=== PATIENT | female | born 1950 | race Caucasian/White ===

== ENCOUNTER 2019-11-03 07:07 | Outpatient (CLI) | payer MEDICARE, SELFPAY ==
[2019-11-03 07:22] LABS: Add Urine Microscopic? YES; Appearance Urine Clear (Clear); Bilirubin Urine Negative (Negative); Blood Urine 1+ (Negative); Color Urine Yellow (Yellow); Glucose Urine UA Negative (Negative); Ketones Urine Negative (Negative); Leukocyte Esterase Ur Negative (Negative); Nitrate Urine Negative (Negative); Protein Urine Negative (Negative); Urobilinogen Urine 0.2 mg/dL (0.2-1.0)
[2019-11-03 07:34] LABS: Squamous Epithelial Cell Urine Moderate /hpf (Few); WBC Urine 0-3 /hpf (0-3)
[2019-11-03 07:35] LABS: Bacteria Urine 1+ /hpf
== END 2019-11-03 07:08 | disposition home or self-care (01) ==
LOC: CHSLAB 07:10
PROVIDERS: PCP Internal Medicine; Visit Provider Internal Medicine
DX: N39.0 Urinary tract infection, site not specified (principal)
CPT/HCPCS: 81001; 87086

== ENCOUNTER 2019-11-30 14:11 | Outpatient (RCR) | payer MEDICARE, SELFPAY ==
[2019-11-30 14:26] LABS: Basophils Absolute Auto 0.04 K/mm3 (0.00-0.10); Basophils Percent Auto 0.6 % (0.0-1.0); Eosinophils Absolute Auto 0.13 K/mm3 (0.02-0.50); Eosinophils Percent Auto 1.8 % (1.0-6.0); Hematocrit 36.8 % (35.0-42.0); Hemoglobin 11.8 g/dL (11.7-13.8); Immature Granulocyte Absolute 0.02 K/mm3 (0.00-0.00); Immature Granulocyte Percent A 0.3 % (0.0-0.0); Lymphocytes Absolute Auto 2.28 K/mm3 (1.10-4.50); Lymphocytes Percent Auto 31.8 % (18.0-42.0); Mean Corpuscular HGB Conc 32.1 g/dL (32.0-36.0); Mean Corpuscular Hemoglobin 28.5 pg (27.0-31.0); Mean Corpuscular Volume 88.9 fL (78.0-102.0); Mean Platelet Volume 8.2 fl (9.2-11.8); Neutrophils Absolute Auto 4.2 K/mm3 (1.7-7.2); Neutrophils Percent Auto 58.5 % (50.0-70.0); Platelet Count Result 319 K/mm3 (150-420); Red Blood Count 4.14 M/mm3 (4.20-5.40); Red Cell Distribution Width 13.3 % (11.6-14.4); White Blood Count 7.2 K/mm3 (4.8-10.8)
[2019-11-30 15:47] LABS: Ferritin 36 ng/mL (8-252); Iron 107 ug/dL (50-170); Percent Iron Saturation 31 % (12-57)
== END 2020-02-28 23:59 | disposition home or self-care (01) ==
LOC: CHSLAB 14:11
PROVIDERS: PCP Internal Medicine
DX: D50.9 Iron deficiency anemia, unspecified (principal)
CPT/HCPCS: 36415; 82728; 83540; 83550; 85025

== ENCOUNTER 2019-12-10 09:16 | Outpatient (CLI) | payer MEDICARE, SELFPAY ==
[2019-12-10 09:29] LABS: Add Urine Microscopic? YES; Appearance Urine Clear (Clear); Bilirubin Urine Negative (Negative); Blood Urine 2+ (Negative); Color Urine Yellow (Yellow); Glucose Urine UA Negative (Negative); Ketones Urine Negative (Negative); Leukocyte Esterase Ur Trace (Negative); Nitrate Urine Negative (Negative); Protein Urine Negative (Negative); Urobilinogen Urine 0.2 mg/dL (0.2-1.0)
[2019-12-10 09:34] LABS: WBC Urine 0-3 /hpf (0-3)
[2019-12-10 09:35] LABS: Bacteria Urine Trace /hpf; Squamous Epithelial Cell Urine Few /hpf (Few)
== END 2019-12-10 09:17 | disposition home or self-care (01) ==
LOC: CHSLAB 09:18
PROVIDERS: PCP Internal Medicine; Visit Provider Internal Medicine
DX: R31.9 Hematuria, unspecified (principal)
CPT/HCPCS: 81001; 87077; 87086; 87088; 87186; 88108; 88112

== ENCOUNTER 2019-12-14 09:48 | Outpatient (RCR) | payer MEDICARE, SELFPAY ==
--- NOTE | 2019-12-14 11:33 | PTOPEVAL ---
Thank you for referring this patient to [facility]. Please review, sign, date and return this plan of care ELSI. I agree with and certify that the following plan of care is medically necessary. Referring Physician Date Admitting Provider: Attending Provider: PHYSICIAN NOT ON STAFF Referring Provider: *PT Outpatient Evaluation Start: 12/14/19 10:12 Freq: Status: Active Protocol: Document 12/14/19 10:10 [facility] (Rec: 12/14/19 11:14 [facility] [id number]) Therapy Assessment Status Assessment Status Assessment Status Evaluation Evaluation Information Problem Diagnosis lumbar stenosis, post op decompression L3-4. Onset 11/06/19 Additional Evaluation Detail oswestry = 40% Subjective Information patient reports she had a Query Text:As Reported By Patient/ lumbar decompression on 11/06/ Family 20. she reports she had the surgery due to pain in the back and decreased mobility/ endurance. she reports she was not having any weakness in the legs prior tyo surgery, but reports since surgery she has been having severe weakness in the quads. she reports she has fallen several times since surgery deu to the R LE giving out on her. she reports she is unable to ambulate up and down steps safely due to the weakness in the R LE. 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 she reports she is off work currently. Pain Assessment Timing of Pain Assessment Timing of Pain Assessment Assessment Pain Scale Pain Scale Used Numeric (1 - 10) Self Report Pain Assessment Lower Back Reported Pain Level 1 Pain Description Pressure Greatest Pain Intensity 2 Pain Aggravating Factors Prolonged Position,Sitting, Stair Climbing,Weight Bearing/ Standing Other Pain Aggravating Factors prolonged activity Pain Score Pain Score 1: Self Report Cervical and Lumbar ROM Lumbar ROM Lumbar Flexion Active Floor Query Text:Hands to: Lumbar Extension (0-40) 20 Query Text:Active in Degrees
== END 2020-01-07 10:21 | disposition home or self-care (01) ==
LOC: CHSPT 09:48
PROVIDERS: PCP Internal Medicine
DX: M48.061 Spinal stenosis, lumbar region without neurogenic claudication (principal)
CPT/HCPCS: 97110; 97161; 97530

== ENCOUNTER 2019-12-22 09:32 | Outpatient (CLI) | payer MEDICARE, SELFPAY ==
--- NOTE | ~2019-12-22 | US_ITS ---
EXAMINATION: US retroperitoneal comp EXAM DATE: 12/22/2019 13:16 INDICATION: Hematuria. TECHNIQUE: Multiple grayscale and Doppler images of the kidneys were obtained (by a technologist who performed the scan) and subsequently reviewed. There is no prior study for comparison. FINDINGS: Right kidney: There is normal contour and echogenicity. It measures 10.7 x 5.6 x 5.8 centimeters. T here are no focal renal lesions identified. There is no hydronephrosis. Left kidney: There is normal contour and echogenicity. It measures 10.3 x 5.4 x 6.0 centimeters. Th ere are no focal renal lesions identified. There is no hydronephrosis. Bladder unremarkable. IMPRESSION: 1. Sonographically unremarkable kidneys. Reviewed, dictated and finalized at location A.
[2019-12-22 09:43] LABS: Add Urine Microscopic? YES; Appearance Urine Clear (Clear); Bilirubin Urine Negative (Negative); Blood Urine 2+ (Negative); Color Urine Yellow (Yellow); Glucose Urine UA Negative (Negative); Ketones Urine Negative (Negative); Leukocyte Esterase Ur Negative (Negative); Nitrate Urine Negative (Negative); Protein Urine Negative (Negative); Urobilinogen Urine 0.2 mg/dL (0.2-1.0); pH Urine 6.5 (5.0-8.0)
[2019-12-22 10:17] LABS: Bacteria Urine Trace /hpf; Squamous Epithelial Cell Urine Rare /hpf (Few); WBC Urine 0-3 /hpf (0-3)
== END 2019-12-22 09:33 | disposition home or self-care (01) ==
PROVIDERS: PCP Internal Medicine; Visit Provider Internal Medicine
DX: R31.9 Hematuria, unspecified (principal); N39.0 Urinary tract infection, site not specified
CPT/HCPCS: 76770; 81001; 87086

== ENCOUNTER 2020-03-24 06:59 | Outpatient (CLI) | payer MEDICARE, SELFPAY ==
[2020-03-24 07:15] LABS: Basophils Absolute Auto 0.04 K/mm3 (0.00-0.10); Basophils Percent Auto 0.7 % (0.0-1.0); Eosinophils Absolute Auto 0.19 K/mm3 (0.02-0.50); Eosinophils Percent Auto 3.5 % (1.0-6.0); Hematocrit 34.3 % (35.0-42.0); Hemoglobin 11.2 g/dL (11.7-13.8); Immature Granulocyte Absolute 0.02 K/mm3 (0.00-0.00); Immature Granulocyte Percent A 0.4 % (0.0-0.0); Lymphocytes Absolute Auto 2.25 K/mm3 (1.10-4.50); Lymphocytes Percent Auto 41.6 % (18.0-42.0); Mean Corpuscular HGB Conc 32.7 g/dL (32.0-36.0); Mean Corpuscular Hemoglobin 28.7 pg (27.0-31.0); Mean Corpuscular Volume 87.9 fL (78.0-102.0); Mean Platelet Volume 8.4 fl (9.2-11.8); Monocytes Percent Auto 12.9 % (2.0-11.0); Neutrophils Absolute Auto 2.2 K/mm3 (1.7-7.2); Neutrophils Percent Auto 40.9 % (50.0-70.0); Platelet Count Result 325 K/mm3 (150-420); Red Cell Distribution Width 13.9 % (11.6-14.4); White Blood Count 5.4 K/mm3 (4.8-10.8)
[2020-03-24 07:16] LABS: Add Urine Microscopic? YES; Appearance Urine Cloudy (Clear); Bilirubin Urine Negative (Negative); Blood Urine 2+ (Negative); Color Urine Yellow (Yellow); Glucose Urine UA Negative (Negative); Ketones Urine Negative (Negative); Leukocyte Esterase Ur 3+ (Negative); Nitrate Urine Positive (Negative); Protein Urine 1+ (Negative); Urobilinogen Urine 0.2 mg/dL (0.2-1.0)
[2020-03-24 07:19] LABS: RBC Urine None seen /hpf (0-2); Squamous Epithelial Cell Urine Rare /hpf (Few); WBC Urine >75 /hpf (0-3)
[2020-03-24 07:20] LABS: Bacteria Urine 1+ /hpf
[2020-03-24 08:19] LABS: Alanine Aminotransferase 17 U/L (14-59); Albumin Level 3.3 g/dL (3.4-5.0); Alkaline Phosphatase 42 U/L (46-116); Anion Gap 9.9 mmol/L (7-16); Aspartate Amino Transferase 17 U/L (15-37); Bilirubin,Total 0.2 mg/dL (0.00-1.00); Blood Urea Nitrogen 15 mg/dL (7-18); Calcium 8.9 mg/dL (8.5-10.1); Carbon Dioxide 33 mmol/L (21-32); Chloride 102 mmol/L (98-108); Cholesterol 210 mg/dL (0-200); Creatine Kinase 74 U/L (26-192); Estimated Glomerular Filt Rate > 60; Ferritin 32 ng/mL (8-252); Glucose 106 mg/dL (70-99); HDL Direct 53 mg/dL (40-60); Iron 48 ug/dL (50-170); LDL Cholesterol Calculated 133 mg/dL (<130); Osmolality Calculated 292 mOsm/kg (285-295); Percent Iron Saturation 15 % (12-57); Potassium 3.9 mmol/L (3.5-5.1); Sodium 141 mmol/L (136-145); Total Protein 6.7 g/dL (6.4-8.2); Triglycerides 119 mg/dL (0-150)
[2020-03-28 19:41] LABS: Vitamin D 25 Hydroxy 33 ng/mL (30-100)
== END 2020-03-24 07:00 ==
LOC: CHSLAB 07:01
PROVIDERS: PCP Internal Medicine; Visit Provider Internal Medicine
DX: E78.2 Mixed hyperlipidemia (principal); I10 Essential (primary) hypertension; M81.0 Age-related osteoporosis without current pathological fracture; D50.9 Iron deficiency anemia, unspecified
CPT/HCPCS: 36415; 80053; 80061; 81001; 82306; 82550; 82728; 83540; 83550; 85025

== ENCOUNTER 2020-08-17 12:37 | Outpatient (CLI) | payer MEDICARE, SELFPAY ==
[2020-08-17 12:47] LABS: Basophils Absolute Auto 0.04 K/mm3 (0.00-0.10); Basophils Percent Auto 0.6 % (0.0-1.0); Eosinophils Absolute Auto 0.22 K/mm3 (0.02-0.50); Eosinophils Percent Auto 3.3 % (1.0-6.0); Hematocrit 35.6 % (35.0-42.0); Hemoglobin 11.3 g/dL (11.7-13.8); Immature Granulocyte Absolute 0.01 K/mm3 (0.00-0.00); Immature Granulocyte Percent A 0.2 % (0.0-0.0); Lymphocytes Absolute Auto 2.86 K/mm3 (1.10-4.50); Lymphocytes Percent Auto 43.5 % (18.0-42.0); Mean Corpuscular HGB Conc 31.7 g/dL (32.0-36.0); Mean Corpuscular Hemoglobin 28.2 pg (27.0-31.0); Mean Corpuscular Volume 88.8 fL (78.0-102.0); Mean Platelet Volume 8.5 fl (9.2-11.8); Monocytes Absolute Auto 0.59 K/mm3 (0.10-0.90); Neutrophils Absolute Auto 2.9 K/mm3 (1.7-7.2); Neutrophils Percent Auto 43.4 % (50.0-70.0); Platelet Count Result 345 K/mm3 (150-420); Red Blood Count 4.01 M/mm3 (4.20-5.40); White Blood Count 6.6 K/mm3 (4.8-10.8)
[2020-08-17 13:52] LABS: Ferritin 46 ng/mL (8-252); Iron 65 ug/dL (50-170); Percent Iron Saturation 20 % (12-57)
== END 2020-08-17 12:38 | disposition home or self-care (01) ==
LOC: CHSLAB 12:38
PROVIDERS: PCP Internal Medicine; Visit Provider Internal Medicine
DX: D50.9 Iron deficiency anemia, unspecified (principal)
CPT/HCPCS: 36415; 82728; 83540; 83550; 85025

== ENCOUNTER 2020-10-12 07:06 | Outpatient (CLI) | payer MEDICARE, SELFPAY ==
[2020-10-12 07:22] LABS: Add Urine Microscopic? YES; Appearance Urine Clear (Clear); Basophils Absolute Auto 0.04 K/mm3 (0.00-0.10); Basophils Percent Auto 0.7 % (0.0-1.0); Bilirubin Urine Negative (Negative); Blood Urine 1+ (Negative); Color Urine Yellow (Yellow); Eosinophils Absolute Auto 0.36 K/mm3 (0.02-0.50); Eosinophils Percent Auto 5.9 % (1.0-6.0); Glucose Urine UA Negative (Negative); Hematocrit 35.5 % (35.0-42.0); Hemoglobin 11.3 g/dL (11.7-13.8); Immature Granulocyte Absolute 0.02 K/mm3 (0.00-0.00); Immature Granulocyte Percent A 0.3 % (0.0-0.0); Ketones Urine Negative (Negative); Leukocyte Esterase Ur 1+ LEU/UL (Negative); Lymphocytes Absolute Auto 2.28 K/mm3 (1.10-4.50); Lymphocytes Percent Auto 37.1 % (18.0-42.0); Mean Corpuscular HGB Conc 31.8 g/dL (32.0-36.0); Mean Corpuscular Hemoglobin 28.5 pg (27.0-31.0); Mean Corpuscular Volume 89.4 fL (78.0-102.0); Mean Platelet Volume 9.3 fl (9.2-11.8); Monocytes Absolute Auto 0.65 K/mm3 (0.10-0.90); Monocytes Percent Auto 10.6 % (2.0-11.0); Neutrophils Absolute Auto 2.8 K/mm3 (1.7-7.2); Neutrophils Percent Auto 45.4 % (50.0-70.0); Nitrate Urine Negative (Negative); Platelet Count Result 356 K/mm3 (150-420); Protein Urine Negative (Negative); Red Blood Count 3.97 M/mm3 (4.20-5.40); Red Cell Distribution Width 13.3 % (11.6-14.4); Urobilinogen Urine 0.2 mg/dL (0.2-1.0); White Blood Count 6.2 K/mm3 (4.8-10.8); pH Urine 6.5 (5.0-8.0)
[2020-10-12 08:09] LABS: Bacteria Urine Trace /hpf; RBC Urine 0-2 /hpf (0-2); Squamous Epithelial Cell Urine Few /hpf (Few); WBC Urine 0-3 /hpf (0-3)
[2020-10-12 10:08] LABS: Alanine Aminotransferase 15 U/L (14-59); Albumin Level 3.6 g/dL (3.4-5.0); Alkaline Phosphatase 40 U/L (46-116); Anion Gap 8 mmol/L (8-16); Aspartate Amino Transferase 12 U/L (15-37); Bilirubin,Total 0.2 mg/dL (0.00-1.00); Blood Urea Nitrogen 10 mg/dL (7-18); Calcium 8.5 mg/dL (8.5-10.1); Carbon Dioxide 30 mmol/L (21-32); Chloride 102 mmol/L (98-108); Cholesterol 207 mg/dL (0-200); Estimated Glomerular Filt Rate > 60; Ferritin 36 ng/mL (8-252); Glucose 94 mg/dL (70-99); HDL Direct 59 mg/dL (40-60); Iron 67 ug/dL (50-170); LDL Cholesterol Calculated 121 mg/dL (<130); Osmolality Calculated 289 mOsm/kg (285-295); Percent Iron Saturation 20 % (12-57); Potassium 4.1 mmol/L (3.5-5.1); Sodium 140 mmol/L (136-145); Total Protein 7.1 g/dL (6.4-8.2); Triglycerides 137 mg/dL (0-150)
[2020-10-15 12:16] LABS: Vitamin D 25 Hydroxy 32 ng/mL (30-100)
== END 2020-10-12 07:07 | disposition home or self-care (01) ==
LOC: CHSLAB 07:08
PROVIDERS: PCP Internal Medicine; Visit Provider Internal Medicine
DX: E78.5 Hyperlipidemia, unspecified (principal); E55.9 Vitamin D deficiency, unspecified; D50.9 Iron deficiency anemia, unspecified; R31.9 Hematuria, unspecified
CPT/HCPCS: 36415; 80053; 80061; 81001; 82306; 82728; 83540; 83550; 85025; 87086; 87088

== ENCOUNTER 2020-10-21 16:20 | Outpatient (CLI) | payer MEDICARE, SELFPAY ==
--- NOTE | ~2020-10-21 | XR_ITS ---
EXAMINATION: XR ribs LT 2V w CXR 2V DATE: 10/21/2020 16:41 INDICATION: Left chest pain. TECHNIQUE: Frontal and lateral views of the chest and 3 views of the left ribs were obtained. COMPARISON: Chest 2 views 07/30/2019 FINDINGS: CHEST TWO VIEWS: A calcified left lung nodule is consistent with old granulomatous disease. No pleura l effusion or pneumothorax. The heart size is normal. There are changes of posterior fusion procedure in lumbar spine. LEFT RIBS: There is a fracture of ninth rib. IMPRESSION: 1. Left ninth rib fracture. Reviewed, dictated and finalized at location A. [place] BRANCH MANAGER IMPRESSION: 1. Left ninth rib fracture.
== END 2020-10-21 16:21 | disposition home or self-care (01) ==
LOC: CHSIMG 16:21
PROVIDERS: PCP Internal Medicine; Visit Provider Family Medicine
DX: R07.89 Other chest pain (principal)
CPT/HCPCS: 71046; 71100

== ENCOUNTER 2020-10-25 12:06 | Outpatient (CLI) | payer MEDICARE, SELFPAY ==
--- NOTE | ~2020-10-25 | DEXA_ITS ---
Bone Density Report Name: Lluvia Castaneda Age: 70 Sex: Female Ethnicity: White Date of : 1950 Indication: postmenopausal; screening for osteoporosis; height loss; secondary osteoporosis; Referring Provider: Rinku Beasley Study: Bone densitometry was performed. Exam Date: October 25, 2020 Accession number: [id number] Bone Density: Region BMD T-score Z-score Classification AP Spine(L1, L2, L3) 1.137 1.1 3.0 Normal Femoral Neck (Left) 0.648 -1.8 -0.1 Osteopenia Total Hip (Left) 0.774 -1.4 0.0 Osteopenia Femoral Neck (Right) 0.565 -2.6 -0.9 Osteoporosis Total Hip (Right) 0.766 -1.4 0.0 Osteopenia Femoral Neck Mean 0.607 -2.2 -0.5 Osteopenia Total Hip Mean 0.770 -1.4 0.0 Osteopenia World Health Organization criteria for BMD impression classify patients as: Normal (T-score at or above -1.0), Osteopenia (T-score between -1.0 and -2.5), or Osteoporosis (T-score at or below -2.5). 10-year Fracture Risk: FRAX not reported because: Some T-score for Spine Total or Hip Total or Femoral Neck at or below -2.5 Treated for osteoporosis Clinical Information Provided by Patient: Has secondary osteoporosis Is being treated for osteoporosis Has used the following medications: Vitamin D Patient maximum height was 65 Menopause Age: 55 Does not regularly consume dairy products Drinks caffeinated beverages Onset of menses at age 16 Number of children 2 Impression: The patient has osteoporosis, based on the Right Femoral Neck T-score. Discussion: It is important to ask patients whether they are taking their medications and to encourage continued and appropriate compliance with their osteoporosis therapies to reduce fracture risk. It is also important to review their risk factors and encourage appropriate calcium and vitamin D intakes, exercise, fall prevention and other lifestyle measures. Follow-Up: Consider a repeat BMD and Vertebral Fracture Assessment (VFA) exam in 2 years or sooner if medically necessary, to reassess this patient's status. Reported by: Dr. Jason Esquivel on 10/25/2020 12:43:00 PM. Reviewed, dictated and finalized at location AKamron ESCAMILLA
--- NOTE | ~2020-10-25 | MM_ITS ---
EXAMINATION: MM screening [facility] BI w chuck HISTORY: Screening mammogram TECHNIQUE: Craniocaudal and mediolateral oblique 3-D tomosynthesis images were obtained and synthetic 2-D images were generated. CAD analysis was submitted and interpreted. COMPARISON: 10/19/2019, 08/19/2018, 07/24/2017 BREAST PARENCHYMAL COMPOSITION: The breasts are almost entirely fatty. FINDINGS: There is no evidence of suspicious mass, calcification, or architectural distortion to sugg est malignancy in either breast. There has been no suspicious interval change. IMPRESSION: 1. No mammographic evidence of malignancy. 2. Recommend routine screening mammography in one year. BI-RADS Category 1: Negative Reviewed, dictated and finalized at location A. E NURSE
--- NOTE | ~2020-10-25 | CT_ITS ---
EXAMINATION: CT diagnostic chest wo con DATE: 10/25/2020 12:55 INDICATION: Follow-up pulmonary nodules. Recent rib fracture. Shortness of breath. TECHNIQUE: Computed tomography (CT) of the chest was performed without intravenous contrast. The dose -length product was 383.92 mGy-cm. Automated exposure control and iterative reconstruction technique were employed. COMPARISON: CT dated 02/13/2016 and rib series dated 10/21/2020 FINDINGS: Heart size is normal. No significant pleural or pericardial effusion. No thoracic lymphaden opathy. The upper abdomen is unremarkable. There are a few calcified granulomas. There are a few scattered st able 2-3 mm nodules, benign. There is a stable small 3 mm fissural nodule on the right, axial image 5 8, likely benign. No new pulmonary nodules or masses. No endobronchial lesions. No pneumothorax. No acute osseous abnormality. IMPRESSION: 1. Stable small pulmonary nodules measuring 3 mm or less, likely benign granulomatous disease. Reviewed, dictated and finalized at location A. IRATORY THERAPIST ASSISTANT IMPRESSION: 1. Stable small pulmonary nodules measuring 3 mm or less, likely benign granulo matous disease.
== END 2020-10-25 12:07 | disposition home or self-care (01) ==
LOC: CHSIMG 12:07
PROVIDERS: PCP Internal Medicine; Visit Provider Internal Medicine
DX: R91.1 Solitary pulmonary nodule (principal); Z12.31 Encounter for screening mammogram for malignant neoplasm of breast; M81.0 Age-related osteoporosis without current pathological fracture
CPT/HCPCS: 71250; 77063; 77067; 77080

== ENCOUNTER 2021-01-12 14:06 | Outpatient (CLI) | payer MEDICARE, SELFPAY ==
--- NOTE | ~2021-01-12 | XR_ITS ---
[XR ribs RT 2V ] INDICATION: Right anterior and lower rib pain TECHNIQUE: Frontal projection of the upper right ribs, frontal projection of the lower right ribs, ob lique projection of all the right ribs, frontal inspiratory chest x-ray for interpretation. FINDINGS: There are no displaced rib fractures identified. There are no soft tissue abnormality see n. The lungs are clear. Osteopenia. IMPRESSION: 1:No displaced rib fractures. Reviewed, dictated and finalized at location A.
== END 2021-01-12 14:07 | disposition home or self-care (01) ==
LOC: CHSIMG 14:08
PROVIDERS: PCP Internal Medicine; Visit Provider Internal Medicine
DX: R07.89 Other chest pain (principal)
CPT/HCPCS: 71100

== ENCOUNTER 2021-04-17 08:22 | Outpatient (CLI) | payer MEDICARE, SELFPAY ==
[2021-04-17 08:37] LABS: Basophils Absolute Auto 0.05 K/mm3 (0.00-0.10); Basophils Percent Auto 0.7 % (0.0-1.0); Eosinophils Absolute Auto 0.24 K/mm3 (0.02-0.50); Eosinophils Percent Auto 3.2 % (1.0-6.0); Hematocrit 36.2 % (35.0-42.0); Hemoglobin 11.7 g/dL (11.7-13.8); Immature Granulocyte Absolute 0.02 K/mm3 (0.00-0.00); Immature Granulocyte Percent A 0.3 % (0.0-0.0); Lymphocytes Absolute Auto 2.03 K/mm3 (1.10-4.50); Lymphocytes Percent Auto 26.9 % (18.0-42.0); Mean Corpuscular HGB Conc 32.3 g/dL (32.0-36.0); Mean Corpuscular Hemoglobin 28.3 pg (27.0-31.0); Mean Corpuscular Volume 87.7 fL (78.0-102.0); Mean Platelet Volume 8.8 fl (9.2-11.8); Monocytes Absolute Auto 0.56 K/mm3 (0.10-0.90); Monocytes Percent Auto 7.4 % (2.0-11.0); Neutrophils Absolute Auto 4.7 K/mm3 (1.7-7.2); Neutrophils Percent Auto 61.5 % (50.0-70.0); Platelet Count Result 339 K/mm3 (150-420); Red Blood Count 4.13 M/mm3 (4.20-5.40); White Blood Count 7.6 K/mm3 (4.8-10.8)
[2021-04-17 08:47] LABS: Add Urine Microscopic? YES; Appearance Urine Clear (Clear); Bilirubin Urine Negative (Negative); Blood Urine 1+ (Negative); Color Urine Light Yellow (Yellow); Glucose Urine UA Negative (Negative); Ketones Urine Negative (Negative); Leukocyte Esterase Ur 1+ (Negative); Nitrate Urine Negative (Negative); Protein Urine Negative (Negative); Urobilinogen Urine 0.2 mg/dL (0.2-1.0)
[2021-04-17 08:54] LABS: Bacteria Urine 1+ /hpf; Squamous Epithelial Cell Urine Moderate /hpf (Few); WBC Urine 0-3 /hpf (0-3)
[2021-04-17 09:34] LABS: Alanine Aminotransferase 18 U/L (14-59); Albumin Level 3.6 g/dL (3.4-5.0); Alkaline Phosphatase 42 U/L (46-116); Anion Gap 12 mmol/L (8-16); Aspartate Amino Transferase 13 U/L (15-37); Bilirubin,Total 0.4 mg/dL (0.00-1.00); Blood Urea Nitrogen 15 mg/dL (7-18); Calcium 8.9 mg/dL (8.5-10.1); Carbon Dioxide 25 mmol/L (21-32); Chloride 107 mmol/L (98-108); Cholesterol 177 mg/dL (0-200); Creatine Kinase 69 U/L (26-192); Estimated Glomerular Filt Rate > 60; Glucose 95 mg/dL (70-99); HDL Direct 58 mg/dL (40-60); Iron 58 ug/dL (50-170); LDL Cholesterol Calculated 102 mg/dL (<130); Osmolality Calculated 298 mOsm/kg (285-295); Percent Iron Saturation 17 % (12-57); Potassium 4.3 mmol/L (3.5-5.1); Sodium 144 mmol/L (136-145); Total Protein 6.8 g/dL (6.4-8.2); Triglycerides 83 mg/dL (0-150)
[2021-04-17 13:30] LABS: Ferritin 22 ng/mL (8-252)
[2021-04-20 13:01] LABS: Vitamin D 25 Hydroxy 54 ng/mL (30-100)
== END 2021-04-17 08:23 | disposition home or self-care (01) ==
LOC: CHSLAB 08:25
PROVIDERS: PCP Internal Medicine; Visit Provider Internal Medicine
DX: R30.0 Dysuria (principal); E78.2 Mixed hyperlipidemia; D50.9 Iron deficiency anemia, unspecified; I10 Essential (primary) hypertension; M81.0 Age-related osteoporosis without current pathological fracture
CPT/HCPCS: 36415; 80053; 80061; 81001; 82306; 82550; 82728; 83540; 83550; 85025

== ENCOUNTER 2021-05-18 08:59 | Outpatient (CLI) | payer MEDICARE, SELFPAY | END 2021-05-18 09:00 | disposition home or self-care (01) | LOC: CHSIMG 09:00 | PROVIDERS: PCP Internal Medicine; Visit Provider Internal Medicine | DX: I48.91 Unspecified atrial fibrillation (principal); I08.1 Rheumatic disorders of both mitral and tricuspid valves | CPT/HCPCS: 93306 ==

== ENCOUNTER 2021-06-05 12:28 | Outpatient (CLI) | payer MEDICARE, SELFPAY ==
[2021-06-05 12:42] LABS: Basophils Absolute Auto 0.05 K/mm3 (0.00-0.10); Basophils Percent Auto 0.6 % (0.0-1.0); Eosinophils Absolute Auto 0.32 K/mm3 (0.02-0.50); Eosinophils Percent Auto 4.1 % (1.0-6.0); Hematocrit 36.9 % (35.0-42.0); Hemoglobin 12.1 g/dL (11.7-13.8); Immature Granulocyte Absolute 0.02 K/mm3 (0.00-0.00); Immature Granulocyte Percent A 0.3 % (0.0-0.0); Lymphocytes Absolute Auto 2.48 K/mm3 (1.10-4.50); Mean Corpuscular HGB Conc 32.8 g/dL (32.0-36.0); Mean Corpuscular Hemoglobin 29.1 pg (27.0-31.0); Mean Corpuscular Volume 88.7 fL (78.0-102.0); Mean Platelet Volume 8.3 fl (9.2-11.8); Monocytes Absolute Auto 0.54 K/mm3 (0.10-0.90); Neutrophils Absolute Auto 4.4 K/mm3 (1.7-7.2); Platelet Count Result 358 K/mm3 (150-420); Red Blood Count 4.16 M/mm3 (4.20-5.40); Red Cell Distribution Width 13.5 % (11.6-14.4); White Blood Count 7.8 K/mm3 (4.8-10.8)
[2021-06-05 13:59] LABS: Anion Gap 11 mmol/L (8-16); Blood Urea Nitrogen 13 mg/dL (7-18); Calcium 8.8 mg/dL (8.5-10.1); Carbon Dioxide 29 mmol/L (21-32); Chloride 104 mmol/L (98-108); Estimated Glomerular Filt Rate > 60; Glucose 88 mg/dL (70-99); NT Pro B Type Natriuretic Pept 960 pg/mL (0-125); Osmolality Calculated 297 mOsm/kg (285-295); Potassium 4.5 mmol/L (3.5-5.1); Sodium 144 mmol/L (136-145)
== END 2021-06-05 12:29 | disposition home or self-care (01) ==
LOC: CHSLAB 12:33
PROVIDERS: PCP Internal Medicine; Visit Provider Internal Medicine
DX: I50.9 Heart failure, unspecified (principal); I48.91 Unspecified atrial fibrillation
CPT/HCPCS: 36415; 80048; 83880; 85025

== ENCOUNTER 2021-06-07 02:45 | Day surgery (SDC) | payer MEDICARE, SELFPAY ==
[2021-06-06 14:25] VITALS: BMI 38.2
[2021-06-07] VITALS (8 sets, daily range): BP systolic 116–168; BP diastolic 55–97; PULSE 71–107; RESP 16–24; TEMP 36.5–36.6; O2SAT 96–100; BMI 35.8
--- NOTE | 2021-06-07 08:30 | ECG_ITS ---
Measurements Intervals [place] Rate: 102 P: UT: 0 QRS: 1 QRSD: 98 T: 50 QT: 364 QTc: 475 Interpretive Statements ATRIAL FIBRILLATION WITH RAPID VENTRICULAR RESPONSE NONSPECIFIC T-WAVE ABNORMALITY- INFERIOR LEADS ABNORMAL ECG Electronically Signed On 06-07-2021 9:15:50 CDT by Migel Castillo D.O.
[2021-06-07 10:12] LABS: Anion Gap 8 mmol/L (8-16); Blood Urea Nitrogen 20 mg/dL (7-17); Calcium 8.8 mg/dL (8.4-10.2); Carbon Dioxide 26 mmol/L (22-30); Chloride 106 mmol/L (98-107); Estimated CRCL calculation 74 ml/min; Estimated Glomerular Filt Rate > 60; Glucose 94 mg/dL (65-110); Magnesium 2.2 mg/dL (1.6-2.3); Potassium 3.8 mmol/L (3.4-5.0); Sodium 140 mmol/L (137-145)
--- NOTE | 2021-06-07 10:45 | WPDMODSED ---
Moderate Sedation Note-Pt Data Patient Data Diagnosis: Atrial fibrillation of recent onset Present Complaint: Fatigue Procedure to be performed/Plan: DC cardioversion Allergies Allergy/AdvReac Type Severity Reaction Status Date / Time hydrocodone [From Vicodin] Allergy Unknown Itching Verified 06/06/21 14:33 red dye Allergy Unknown Hives Verified 06/06/21 14:33 Home Medications Medication Instructions Recorded Confirmed Type Adult Probiotic 1 cap PO DAILY 06/06/21 06/06/21 History acetaminophen 1,000 mg PO BID 06/06/21 06/06/21 History alendronate 70 mg PO WEEKLY 06/06/21 06/06/21 History amiodarone 200 mg PO BID 06/06/21 06/06/21 History apixaban [Eliquis] 5 mg PO BID 06/06/21 06/06/21 History cholecalciferol (vitamin D3) 25 mcg PO DAILY 06/06/21 06/06/21 History cranberry 500 mg PO DAILY 06/06/21 06/06/21 History diphenhydramine HCl [Benadryl] 25 mg PO HS 06/06/21 06/06/21 History furosemide 20 mg PO DAILY 06/06/21 06/06/21 History losartan 25 mg PO DAILY 06/06/21 06/06/21 History metoprolol tartrate 50 mg PO DAILY 06/06/21 06/06/21 History omeprazole 40 mg PO DAILY 06/06/21 06/06/21 History potassium chloride 10 meq PO DAILY 06/06/21 06/06/21 History endwhjq-dcxi-xfjle-oreg-capryl 1 tablet PO DAILY 06/06/21 06/06/21 History vitamin B complex 1 tablet PO DAILY 06/06/21 06/06/21 History zinc sulfate 50 mg PO BID 06/06/21 06/06/21 History Current Medications: Active Medications Sodium Chloride (Normal Saline Iv) 500 mls @ 30 mls/hr IV CONT .[id number] HERMAN Sedation/Anesthesia: No previous sedation/anesthesia problems (including family history). [facility] Social History Social History Smoking status: Never smoker Alcohol intake: never Substance use: never Substance use type: does not use Living arrangements: alone Spiritual care concerns: No Mod Sed Physical Exam Physical Exam Pre Procedural Exam: Normal: Neck, Throat, Airway, Lungs, Heart Size, Heart Rate, Neuro Exam and Extremities and Variation: Appearance (Obese white female no distress) and Heart Rhythm (Irregularly irregular) Hours since solid foods: 12 Hours since liquid intake: 12 Mallampati Classification: class II Internal Medicine - PN: Obj Da Vital Signs Vital Signs: Vital Signs - 24 hr 06/07/21 09:14 Temperature 36.5 C Pulse Rate 107 H Respiratory Rate 18 Blood Pressure 157/87 H Pulse Oximetry 98 Meds/Results Medications: Active Medications Generic Name Dose Route Start Last Admin Trade Name Freq PRN Reason Stop Dose Admin Sodium Chloride 500 mls @ 30 mls/hr 06/07/21 08:30 Normal Saline Iv IV CONT .[id number] HERMAN Labs CBC & Chem 7: 06/07/21 09:02 Labs: Laboratory Results - last 24 hr 06/07/21 09:02 Sodium 140 Potassium 3.8 Chloride 106 Carbon Dioxide 26 Anion Gap 8 BUN 20 H Creatinine 0.70 Estim Creat Clear Calc 74 Estimated GFR > 60 Glucose 94 Calcium 8.8 Magnesium 2.2 ASA Classification/Sedation ASA Classification/Sedation ASA Class: II Emergent: No Risks: Risks, benefits and alternatives explained and patient/family accepted plan for sedation. Patient re-evaluated immediately prior to sedation.
--- NOTE | 2021-06-07 10:57 | WPDCARDPROC ---
Cardiac Cath Procedure Note Date of procedure:: 06/07/21 Performing physician:: Saul Tee MD Indication:: Atrial fibrillation Brief clinical history:: This is a 70-year-old woman felt to have atrial fib of recent onset. As an outpatient she has been treated with anticoagulation, beta-gabriela and amiodarone. She persists in atrial fibrillation and an attempt at restoring sinus rhythm electrically has been scheduled for today. Procedure Procedure performed:: DC cardioversion Sedation/Medication given:: Propofol and aliquots/ total dosage of 100 mg Estimated blood loss:: No blood loss Procedure note:: Patient was brought to the cardiac chemical lab supervisor holding area where she was in the postabsorptive state. Defibrillator patches were placed in the AP position. She was then sedated using propofol in aliquots a total dosage of 100 mg was given which provided excellent sedation. She was DC cardioverted with 200 joules in a synchronized fashion x1 shock restoring normal sinus rhythm Findings:: As above Conclusion:: Successful uncomplicated DC cardioversion terminating atrial fibrillation and restoring normal sinus rhythm using 200 joules Saul Tee MD [facility]
--- NOTE | 2021-06-07 11:02 | ECG_ITS ---
Measurements Intervals [place] Rate: 75 P: 55 TN: 186 QRS: -5 QRSD: 98 T: 30 QT: 413 QTc: 463 Interpretive Statements SINUS RHYTHM BASELINE ARTIFACT- I, III, AVL NORMAL ECG Electronically Signed On 06-08-2021 9:05:29 CDT by Migel Castillo D.O.
--- NOTE | 2021-06-07 12:33 | SUR.PHASEII ---
Discharge instructions reviewed with patient with stated understanding. IV removed with catheter intact. No c/o pain or discomfort, no N/V. Discharged via wheelchair to son's personal vehicle.
== END 2021-06-07 12:30 | disposition home or self-care (01) ==
PROVIDERS: PCP Internal Medicine; Visit Provider Specialist
PROC: 5A2204Z Restoration of Cardiac Rhythm, Single (ICD-10-PCS; principal; 2021-06-07 10:00)
DX: I48.19 Other persistent atrial fibrillation (principal); I34.0 Nonrheumatic mitral (valve) insufficiency; Z79.01 Long term (current) use of anticoagulants
CPT/HCPCS: 36415; 80048; 83735; 92960; J2704; J7040

== ENCOUNTER 2021-10-16 09:37 | Outpatient (CLI) | payer MEDICARE, SELFPAY ==
[2021-10-16 10:08] LABS: Basophils Absolute Auto 0.07 K/mm3 (0.00-0.10); Basophils Percent Auto 1.1 % (0.0-1.0); Eosinophils Absolute Auto 0.38 K/mm3 (0.02-0.50); Eosinophils Percent Auto 6.2 % (1.0-6.0); Hematocrit 38.7 % (35.0-42.0); Hemoglobin 12.4 g/dL (11.7-13.8); Immature Granulocyte Absolute 0.02 K/mm3 (0.00-0.00); Immature Granulocyte Percent A 0.3 % (0.0-0.0); Lymphocytes Absolute Auto 1.82 K/mm3 (1.10-4.50); Lymphocytes Percent Auto 29.9 % (18.0-42.0); Mean Corpuscular Hemoglobin 29.4 pg (27.0-31.0); Mean Corpuscular Volume 91.7 fL (78.0-102.0); Mean Platelet Volume 8.9 fl (9.2-11.8); Monocytes Absolute Auto 0.53 K/mm3 (0.10-0.90); Monocytes Percent Auto 8.7 % (2.0-11.0); Neutrophils Absolute Auto 3.3 K/mm3 (1.7-7.2); Neutrophils Percent Auto 53.8 % (50.0-70.0); Platelet Count Result 353 K/mm3 (150-420); Red Blood Count 4.22 M/mm3 (4.20-5.40); Red Cell Distribution Width 13.2 % (11.6-14.4); White Blood Count 6.1 K/mm3 (4.8-10.8)
[2021-10-16 10:09] LABS: Add Urine Microscopic? YES; Appearance Urine Clear (Clear); Bilirubin Urine Negative (Negative); Blood Urine 1+ (Negative); Color Urine Light Yellow (Yellow); Glucose Urine UA Negative (Negative); Ketones Urine Negative (Negative); Leukocyte Esterase Ur Negative (Negative); Nitrate Urine Negative (Negative); Protein Urine Negative (Negative); Specific Grav Ur 1.015 (1.010-1.020); Urobilinogen Urine 0.2 mg/dL (0.2-1.0)
[2021-10-16 10:15] LABS: Bacteria Urine Trace /hpf; RBC Urine 0-2 /hpf (0-2); Squamous Epithelial Cell Urine Rare /hpf (Few); WBC Urine None seen /hpf (0-3)
[2021-10-16 11:02] LABS: Alanine Aminotransferase 20 U/L (14-59); Albumin Level 3.5 g/dL (3.4-5.0); Alkaline Phosphatase 46 U/L (46-116); Anion Gap 8 mmol/L (8-16); Aspartate Amino Transferase < 10 U/L (15-37); Bilirubin,Total 0.3 mg/dL (0.00-1.00); Blood Urea Nitrogen 5 mg/dL (7-18); Carbon Dioxide 29 mmol/L (21-32); Chloride 104 mmol/L (98-108); Cholesterol 224 mg/dL (0-200); Estimated Glomerular Filt Rate 56; Free T4 Free Thyroxine 1.24 ng/dL (0.76-1.46); Glucose 92 mg/dL (70-99); HDL Direct 62 mg/dL (40-60); LDL Cholesterol Calculated 132 mg/dL (<130); Magnesium 2.3 mg/dL (1.8-2.4); NT Pro B Type Natriuretic Pept 142 pg/mL (0-125); Osmolality Calculated 289 mOsm/kg (285-295); Potassium 4.4 mmol/L (3.5-5.1); Sodium 141 mmol/L (136-145); Thyroid Stimulating Hormone 1.01 uIU/mL (0.36-3.74); Total Protein 7.1 g/dL (6.4-8.2); Triglycerides 152 mg/dL (0-150)
[2021-10-18 15:42] LABS: Vitamin D 25 Hydroxy 38 ng/mL (30-100)
== END 2021-10-16 09:38 | disposition home or self-care (01) ==
LOC: CHSLAB 09:40
PROVIDERS: PCP Internal Medicine; Visit Provider Internal Medicine
DX: M81.0 Age-related osteoporosis without current pathological fracture (principal); K21.9 Gastro-esophageal reflux disease without esophagitis; E78.2 Mixed hyperlipidemia; I50.9 Heart failure, unspecified
CPT/HCPCS: 36415; 80053; 80061; 81001; 82306; 83735; 83880; 84439; 84443; 84481; 85025

== ENCOUNTER 2021-11-23 11:38 | Outpatient (CLI) | payer MEDICARE, SELFPAY ==
--- NOTE | ~2021-11-23 | MM_ITS ---
EXAMINATION: MM screening [facility] BI w chuck HISTORY: Screening mammogram TECHNIQUE: Craniocaudal and mediolateral oblique 3-D tomosynthesis images were obtained and synthetic 2-D images were generated. CAD analysis was submitted and interpreted. COMPARISON: 10/25/2020, 10/19/2019, 08/19/2018 BREAST PARENCHYMAL COMPOSITION: The breasts are almost entirely fatty. FINDINGS: There is no evidence of suspicious mass, calcification, or architectural distortion to sugg est malignancy in either breast. There has been no suspicious interval change. IMPRESSION: 1. No mammographic evidence of malignancy. 2. Recommend routine screening mammography in one year. BI-RADS Category 1: Negative Reviewed, dictated and finalized at location A. GER WIND
== END 2021-11-23 11:39 | disposition home or self-care (01) ==
LOC: CHSIMG 11:40
PROVIDERS: PCP Internal Medicine; Visit Provider Internal Medicine
DX: Z12.31 Encounter for screening mammogram for malignant neoplasm of breast (principal)
CPT/HCPCS: 77063; 77067

== ENCOUNTER 2021-12-15 21:44 | Emergency (ER) | payer MEDICARE, SELFPAY ==
--- NOTE | ~2021-12-15 | XR_ITS ---
EXAMINATION: XR finger 5th LT min 2V EXAM DATE: 12/15/2021 23:34 INDICATION: Reduction TECHNIQUE: Left 5th finger frontal, lateral and oblique projections obtained and reviewed. Comparison is made to prior examination from 12/15/2021. FINDINGS: There is been interval reduction in previously seen angulation to the left 5th proximal ph alangeal shaft fracture with comminution. Minimal residual angulation. There is overlying soft tissue swelling. IMPRESSION: Nearly reduced left 5th proximal phalangeal shaft fracture. Reviewed, dictated and finalized at location G.
--- NOTE | ~2021-12-15 | XR_ITS ---
EXAMINATION: XR hand LT min 3V EXAM DATE: 12/15/2021 22:31 INDICATION: Pain and deformity @ 4-5th digits after fall. TECHNIQUE: Left hand frontal, lateral and oblique projections obtained and reviewed. Comparison is ma dary to prior examination from 02/28/2019. FINDINGS: Left metacarpal bones are unremarkable. Acute closed posttraumatic comminuted fractures o f the left 5th proximal phalangeal shaft width moderate posterior angulation. There is overlying soft tissue swelling. No other acute findings. IMPRESSION: Left 5th proximal phalangeal comminuted fractures. Reviewed, dictated and finalized at location G.
[2021-12-15 22:05] VITALS: BP 173/81; PULSE 67; RESP 16; TEMP 36.5; O2SAT 99
--- NOTE | 2021-12-15 22:20 | ED.GENADULT ---
HPI - General Adult General Chief complaint: Fall Stated complaint: Lt hand injury Source: patient Mode of arrival: ambulatory History of Present Illness HPI narrative: Lluvia presented to the emergency department with pain and deformity of her 5th digit of her left hand. She was walking around her car, tripped on a rock and fell forward. She bumped her head on the car but landed on her left knee and hand. She did not lose consciousness, and had no N/V. Her knee now feels ok but her hand hurts and her pinkie is out of alignment. She has no other injuries Related Data Home Medications Medication Instructions Recorded Confirmed Adult Probiotic 1 cap PO DAILY 06/06/21 12/15/21 acetaminophen 1,000 mg PO BID 06/06/21 12/15/21 amiodarone 200 mg PO BID 06/06/21 12/15/21 apixaban [Eliquis] 5 mg PO BID 06/06/21 12/15/21 cholecalciferol (vitamin D3) 25 mcg PO DAILY 06/06/21 12/15/21 cranberry 500 mg PO DAILY 06/06/21 06/06/21 diphenhydramine HCl [Benadryl] 25 mg PO HS 06/06/21 06/06/21 furosemide 20 mg PO DAILY 06/06/21 12/15/21 losartan 25 mg PO DAILY 06/06/21 12/15/21 metoprolol tartrate 50 mg PO DAILY 06/06/21 12/15/21 omeprazole 40 mg PO DAILY 06/06/21 12/15/21 potassium chloride 10 meq PO DAILY 06/06/21 12/15/21 oeupunq-ikqh-hzilb-oreg-capryl 1 tablet PO DAILY 06/06/21 06/06/21 vitamin B complex 1 tablet PO DAILY 06/06/21 06/06/21 zinc sulfate 50 mg PO BID 06/06/21 06/06/21 Allergies Allergy/AdvReac Type Severity Reaction Status Date / Time hydrocodone [From Vicodin] Allergy Unknown Itching Verified 12/15/21 22:17 red dye Allergy Unknown Hives Verified 12/15/21 22:17 Review of Systems Constitutional: Constitutional: Reports no additional constitutional complaints Eyes: Eyes: Reports no additional eye complaints ENT: Reports system reviewed and no additional complaints, except as documented Cardiovascular: Cardiovascular: Reports no additional cardiovascular complaints Respiratory: Respiratory: Reports no additional respiratory complaints Gastrointestinal: Gastrointestinal: Reports no additional gastrointestinal complaints Genitourinary: Genitourinary: Reports no additional female genitourinary complaints Musculoskeletal: Musculoskeletal: Reports as per HPI Integumentary/Breasts: Skin/Breast: Reports system reviewed and no additional complaints, except as docu Neurologic: Reports system reviewed and no additional complaints, except as documented Psychiatric: Psychiatric: Reports no additional psychiatric complaints Endocrine: Endocrine: Reports no additional endocrine complaints Hematologic/Lymphatic: Hematologic/Lymphatic: Reports no additional hematologic/lymphatic complaints Allergic/Immunologic: Allergic/Immunologic: Reports no additional allergic/immunologic complaints [facility] Social History Social History Smoking status: Never smoker Alcohol intake: never Substance use: never Substance use type: does not use Spiritual care concerns: No Exam Const: General: no acute distress and alert Orientation/consciousness: patient oriented x3 Limitations: No altered mental status HENMT: Head: normal to inspection Other: atraumatic Eyes: Pupils: Equal, round and reactive pupils present Neck: Neck: normal visual inspection Chest: Chest palpation & inspection: normal inspection of the chest Resp: Effort & Inspection: normal respiratory effort Cardio: Rate: regular rate Skin: General skin exam: normal color Rashes: no rashes Neuro: General: patient oriented x3 and moves all extremities Extrem: Other: Pinkie of left hand was deviated laterally and could only be wiggled. She could appose all other fingers. All sensation was intact Course Course Emergency Course: Declined pain meds. Ordered radiographs. EXAMINATION: XR hand LT min 3V EXAM DATE: 12/15/2021 22:31 INDICATION: Pain and deformity @ 4-5th digits after fall. TECHNIQUE: Lef
--- NOTE | 2021-12-15 22:56 | PC.NURSE ---
RN called Dr. Avalos's office for a consult. Transferred to [facility].
[2021-12-15] MEDS: LIDOCAINE HCL 1% LOCAL INJ 20 ML VIAL INFILTRATE (23:16)
[2021-12-16 00:30] VITALS: BP 143/82; PULSE 73; RESP 16; O2SAT 97
== END 2021-12-16 00:35 | disposition home or self-care (01) ==
PROVIDERS: Emergency Provider Family Medicine; PCP Internal Medicine
DX: S62.611A Displaced fracture of proximal phalanx of left index finger, initial encounter for closed fracture (principal); W01.0XXA Fall on same level from slipping, tripping and stumbling without subsequent striking against object, initial encounter
CPT/HCPCS: 26725; 73130; 73140; 99285

== ENCOUNTER 2022-02-21 09:09 | Outpatient (CLI) | payer MEDICARE, SELFPAY ==
--- NOTE | ~2022-02-21 | US_ITS ---
EXAMINATION: US soft tissue UE RT DATE: 02/21/2022 09:53 INDICATION: Cystic mass at the dorsum of the right wrist TECHNIQUE: Multiple grayscale and Doppler ultrasound images of the region of concern at the dorsum of the right wrist were obtained. COMPARISON: None FINDINGS: Superficial to the extensor tendons at the dorsum of the right wrist is an approximately 2.7 x 2.9 x 0.8 cm lenticular region of heterogeneous decreased echogenicity of the subcutaneous fat which bulges the skin surface. There is increased vascular flow on color Doppler within the region of decreased e chogenicity which is likely inflammatory in etiology. There are some anechoic/hypoechoic fluid surrou nding the tendons in one of the compartments at the dorsum of the wrist consistent with mild tenosyno vitis. This lies along one side of what appears to the sublime tubercle and contains 2 tendon suggest ing this represents a second dorsal compartment and the extensor carpi radialis brevis and longus ten dons. No discrete masses or other abnormal fluid collections identified IMPRESSION: 1. 2.9 x 2.7 x 0.8 cm poorly defined region of edematous swelling of the subcutaneous tissues at the region of concern at the dorsum of the right wrist which is likely inflammatory in etiology. 2. Mild tenosynovitis, likely of the second dorsal compartment with small amount of fluid surrounding what are likely the extensor carpi radialis longus and brevis tendons. Reviewed, dictated and finalized at location B. IMPRESSION: 1. 2.9 x 2.7 x 0.8 cm poorly defined region of edematous swelling of the subcut aneous tissues at the region of concern at the dorsum of the right wrist which is likely inflammatory in etiology. 2. Mild tenosynovitis, likely of the second dorsal compartment with small amoun t of fluid surrounding what are likely the extensor carpi radialis longus and b yuri tendons.
== END 2022-02-21 09:10 | disposition home or self-care (01) ==
LOC: CHSIMG 09:16
PROVIDERS: PCP Internal Medicine; Visit Provider Internal Medicine
DX: R22.31 Localized swelling, mass and lump, right upper limb (principal)
CPT/HCPCS: 76882

== ENCOUNTER 2022-02-27 07:41 | Outpatient (CLI) | payer MEDICARE, SELFPAY ==
--- NOTE | ~2022-02-27 | XR_ITS ---
MODIFIED ESOPHAGRAM HISTORY: Dysphagia. TECHNIQUE: Modified barium esophagram was performed by speech pathologist under radiologist fluorosco pic guidance. This was recorded on tape. The exam was reviewed on 02/27/2022 10:13 CDT. The DAP for this procedure was 2.1 Gycm2. Fluoroscopy time is 2.9 minutes. FINDINGS: Lateral projection of the cervical spine demonstrates small ventral osteophytes at C5-6.. There is reduced pharyngeal squeeze with vallecular and piriform sinus residue. No evidence for gary ngeal penetration or aspiration. There is delayed passage of contrast bolus distal to the cricopharyn geus which is persistently mildly narrowed. IMPRESSION: 1: Reduced pharyngeal squeeze with follicular and piriform sinus residue. Mildly delayed passage of b olus past the cricopharyngeus muscle. No evidence for penetration or aspiration. 2: Please refer to speech pathologist report for additional detail. Reviewed, dictated and finalized at location B. IMPRESSION: 1: Reduced pharyngeal squeeze with follicular and piriform sinus residue. Mildl y delayed passage of bolus past the cricopharyngeus muscle. No evidence for pen etration or aspiration. 2: Please refer to speech pathologist report for additional detail.
--- NOTE | 2022-02-27 10:03 | STOPEVAL ---
Thank you for referring Lluvia Castaneda to [facility].? The patient was seen for a modified barium swallow study. Admitting Provider: Attending Provider: Rinku Beasley MD Referring Provider: MODIFIED BARIUM SWALLOW STUDY *ST Outpatient Evaluation Start: 02/27/22 08:50 Freq: Status: Active Protocol: Document 02/27/22 08:15 MJB (Rec: 02/27/22 10:03 MJB [id number]) Therapy Assessment Status Assessment Status Assessment Status Evaluation Outpatient Past Medical History Past Medical History Source of Past Medical History Patient Neurological History Hx Neurological Disorders No Significant History Cardiovascular History Hx Atrial Fibrillation Yes Hx Hypercholesterolemia Yes Hx Hypertension Yes Respiratory History Hx Respiratory Disorders No Significant History Gastrointestinal History Hx Gastroesophageal Reflux Disease Yes Genitourinary History Hx Genitourinary Disorders No Significant History Musculoskeletal History Hx Arthritis Yes Hx Joint Replacement Yes: left 2015, right 2016 Hx Osteoporosis Yes Hx Spinal Surgery Yes: nerve release 2018 Hematological History Hx Anemia Yes Endocrine History Hx Endocrine Disorders No Significant History HEENT History Hx Cataracts Yes: L removed in 2018 Integumentary History Hx Skin Disorders No Significant History Reproductive History Hx Post Menopausal Yes Psychosocial History Hx Psychiatric Disorders No Significant History Pain History History of Any Previous or Ongoing No Significant History Instance of Pain Anesthesia History Hx Anesthesia Reactions No Significant History Evaluation Information Problem Diagnosis oropharyngeal dysphagia Onset one year ago Subjective Information Patient reported that she has Query Text:As Reported By Patient/ had difficulty swallowing Family tough consistencies for over a year now. She has difficulty swallowing tough meats, dry breads, crackers and other dry consistencies. The patient reported that recently she choked on a solid food. She normally feels as if the food gets stuck lower in the esophagus and has to swallow multiple times along with use of water to clear it. Diagnostic Tests Other Tests For This Problem No Prior Level of Function Prior Swallow Level Prior Intake Method Oral Prior Diet Regular (Level 7 Diet) Hsagufta
== END 2022-02-27 07:42 | disposition home or self-care (01) ==
LOC: CHSIMG 07:43
PROVIDERS: PCP Internal Medicine; Visit Provider Internal Medicine
DX: R13.12 Dysphagia, oropharyngeal phase (principal)
CPT/HCPCS: 92611

== ENCOUNTER 2022-03-30 09:28 | Outpatient (CLI) | payer MEDICARE, SELFPAY ==
[2022-03-30 09:44] LABS: Basophils Absolute Auto 0.07 K/mm3 (0.00-0.10); Basophils Percent Auto 1.1 % (0.0-1.0); Eosinophils Absolute Auto 0.24 K/mm3 (0.02-0.50); Eosinophils Percent Auto 3.8 % (1.0-6.0); Hematocrit 37.4 % (35.0-42.0); Hemoglobin 11.9 g/dL (11.7-13.8); Immature Granulocyte Absolute 0.01 K/mm3 (0.00-0.00); Immature Granulocyte Percent A 0.2 % (0.0-0.0); Lymphocytes Absolute Auto 2.01 K/mm3 (1.10-4.50); Mean Corpuscular HGB Conc 31.8 g/dL (32.0-36.0); Mean Corpuscular Hemoglobin 29.5 pg (27.0-31.0); Mean Corpuscular Volume 92.6 fL (78.0-102.0); Monocytes Absolute Auto 0.58 K/mm3 (0.10-0.90); Monocytes Percent Auto 9.2 % (2.0-11.0); Neutrophils Absolute Auto 3.4 K/mm3 (1.7-7.2); Neutrophils Percent Auto 53.7 % (50.0-70.0); Platelet Count Result 337 K/mm3 (150-420); Red Blood Count 4.04 M/mm3 (4.20-5.40); Red Cell Distribution Width 13.1 % (11.6-14.4); White Blood Count 6.3 K/mm3 (4.8-10.8)
[2022-03-30 09:56] LABS: Add Urine Microscopic? YES; Appearance Urine Clear (Clear); Bilirubin Urine Negative (Negative); Blood Urine 1+ (Negative); Color Urine Light Yellow (Yellow); Glucose Urine UA Negative (Negative); Ketones Urine Negative (Negative); Leukocyte Esterase Ur Trace (Negative); Nitrate Urine Negative (Negative); Protein Urine Negative (Negative); Specific Grav Ur 1.015 (1.010-1.020); Urobilinogen Urine 0.2 mg/dL (0.2-1.0)
[2022-03-30 10:00] LABS: RBC Urine 0-2 /hpf (0-2); Squamous Epithelial Cell Urine Few /hpf (Few); WBC Urine 0-3 /hpf (0-3)
[2022-03-30 10:01] LABS: Bacteria Urine Trace /hpf
[2022-03-30 10:17] LABS: Alanine Aminotransferase 15 U/L (14-59); Albumin Level 3.4 g/dL (3.4-5.0); Alkaline Phosphatase 52 U/L (46-116); Anion Gap 8 mmol/L (8-16); Aspartate Amino Transferase 11 U/L (15-37); Bilirubin,Total 0.2 mg/dL (0.00-1.00); Blood Urea Nitrogen 15 mg/dL (7-18); Calcium 8.8 mg/dL (8.5-10.1); Carbon Dioxide 28 mmol/L (21-32); Chloride 104 mmol/L (98-108); Cholesterol 215 mg/dL (0-200); Creatine Kinase 60 U/L (26-192); Estimated Glomerular Filt Rate 58; Free T3 2.01 pg/mL (2.18-3.98); Free T4 Free Thyroxine 1.37 ng/dL (0.76-1.46); Glucose 96 mg/dL (70-99); HDL Direct 60 mg/dL (40-60); LDL Cholesterol Calculated 125 mg/dL (<130); Magnesium 2.3 mg/dL (1.8-2.4); NT Pro B Type Natriuretic Pept 123 pg/mL (0-125); Osmolality Calculated 290 mOsm/kg (285-295); Potassium 4.3 mmol/L (3.5-5.1); Sodium 140 mmol/L (136-145); Thyroid Stimulating Hormone 1.86 uIU/mL (0.36-3.74); Total Protein 7.3 g/dL (6.4-8.2); Triglycerides 148 mg/dL (0-150)
[2022-04-03 20:22] LABS: Vitamin D 25 Hydroxy 28 ng/mL (30-100)
== END 2022-03-30 09:29 | disposition home or self-care (01) ==
LOC: CHSLAB 09:31
PROVIDERS: PCP Internal Medicine; Visit Provider Internal Medicine
DX: E78.2 Mixed hyperlipidemia (principal); I10 Essential (primary) hypertension; M81.0 Age-related osteoporosis without current pathological fracture; D50.9 Iron deficiency anemia, unspecified; I48.19 Other persistent atrial fibrillation; I50.9 Heart failure, unspecified
CPT/HCPCS: 36415; 80053; 80061; 81001; 82306; 82550; 83735; 83880; 84439; 84443; 84481; 85025

== ENCOUNTER 2022-04-05 01:21 | Day surgery (SDC) | payer MEDICARE, SELFPAY ==
[2022-03-22 13:50] VITALS: BMI 41.8
--- NOTE | 2022-04-04 11:06 | PM.HPGS ---
History of Present Illness History of Present Illness Consent: Risks, benefits, and alternatives have been discussed and questions answered. Patient agrees to proceed with procedure. Chief complaint: dysphagia Narrative: Lluvia Castaneda is a 71 year old female With dysphagia. She has a difficult time swallowing phlegm As well as food. This began about 1 year ago. It generally feels as though it is caught in the back of her throat. She is not able to expect her 8 what long go down but rather takes a drink of water to help the material pass. she has been chronically on medication for acid reflux. She has had no weight loss and in fact has gained weight in the past year. Review of Systems Review of Systems: All systems reviewed & are unremarkable except as noted in HPI and below PMFSH Past Medical History Medical History Atrial fibrillation Chronic GERD Cricopharyngeal hypertrophy Hyperlipidemia Hypertension Morbid obesity with BMI of 40.0-44.9, adult Osteoporosis Family History Family History Father Cancer Other Cancer Grandparent Cancer Diabetes mellitus Sibling Thyroid disorder Social History Social History Smoking status: Never smoker Alcohol intake: never Substance use: never Substance use type: does not use Living arrangements: with family Spiritual care concerns: No Meds Home Medications and Allergies Home Medications Medication Instructions Recorded Confirmed Type Adult Probiotic 1 cap PO DAILY 06/06/21 03/22/22 History acetaminophen 500 mg tablet 1,000 mg PO BID 06/06/21 03/22/22 History amiodarone 200 mg tablet 200 mg PO DAILY 06/06/21 03/22/22 History apixaban 5 mg tablet (Eliquis) 5 mg PO BID 06/06/21 03/22/22 History cholecalciferol (vitamin D3) 25 25 mcg PO DAILY 06/06/21 03/22/22 History mcg (1,000 unit) tablet cranberry 500 mg capsule 500 mg PO DAILY 06/06/21 03/22/22 History diphenhydramine HCl 25 mg capsule 25 mg PO HS 06/06/21 03/22/22 History (Benadryl) furosemide 20 mg tablet 20 mg PO DAILY 06/06/21 03/22/22 History metoprolol tartrate 50 mg tablet 50 mg PO BID 06/06/21 03/22/22 History omeprazole 40 mg capsule,delayed 40 mg PO DAILY 06/06/21 03/22/22 History release potassium chloride 10 mEq 10 meq PO DAILY 06/06/21 03/22/22 History tablet,extended release zsypqny-gkcw-gyngw-oreg-capryl 1 tablet PO DAILY 06/06/21 03/22/22 History vitamin B complex 1 tablet PO DAILY 06/06/21 03/22/22 History zinc sulfate 50 mg zinc (220 mg) 50 mg PO DAILY 06/06/21 03/22/22 History tablet ascorbic acid (vitamin C) 1,000 mg 1 g PO DAILY 03/21/22 03/22/22 History tablet fluticasone propionate 50 2 spray intranasal BID #16 mL 03/21/22 03/22/22 Rx mcg/actuation nasal spray,suspension (Flonase Allergy Relief) mupirocin 2 % topical ointment 1 applic topical BID #22 grams 03/21/22 03/22/22 Rx alendronate 70 mg tablet 1 tablet PO WEEKLY 03/22/22 03/22/22 History losartan 50 mg tablet 2 tablet PO DAILY 03/22/22 03/22/22 History azelastine 137 mcg (0.1 %) nasal 1 spray intranasal Q12H #30 mL 04/03/22 04/05/22 Rx spray aerosol Allergies Allergy/AdvReac Type Severity Reaction Status Date / Time hydrocodone [From Vicodin] Allergy Intermediate Itching Verified 04/05/22 09:39 red dye Allergy Unknown Hives Verified 04/05/22 09:39 Exam Const: General: alert Orientation/consciousness: patient oriented x3 Resp: Auscultation: clear to auscultation bilaterally Cardio: Rhythm: regular rhythm GI: GI Palp: Yes Soft to palpation and No Tenderness to palpation present (GI) Neuro: General: patient oriented x3 Assessment and Plan Assessment and plan (1) Dysphagia: Code(s): R13.10 - Dysphagia, unspecified Status: Acute Assessment and Plan: EGD with possible biopsy or dilat
--- NOTE | 2022-04-04 12:56 | WPDANESEPPF ---
Anes - Initial Pre Proc Eval Procedure: Operation Date: 04/05/22 11:30 Proposed Procedures p Esophagogastroduodenoscopy - Anil Sierra MD Date/Time: 04/04/22 12:56 Surgeon: Anil Sierra MD Pre Op Diagnosis: dysphagia Patient Data Age: 71 Gender: F Height: 1.61 m Weight: 109 kg Allergies Allergy/AdvReac Type Severity Reaction Status Date / Time hydrocodone [From Vicodin] Allergy Intermediate Itching Verified 04/05/22 09:39 red dye Allergy Unknown Hives Verified 04/05/22 09:39 Home Medications Medication Instructions Recorded Confirmed Type Adult Probiotic 1 cap PO DAILY 06/06/21 03/22/22 History acetaminophen 500 mg tablet 1,000 mg PO BID 06/06/21 03/22/22 History amiodarone 200 mg tablet 200 mg PO DAILY 06/06/21 03/22/22 History apixaban 5 mg tablet (Eliquis) 5 mg PO BID 06/06/21 03/22/22 History cholecalciferol (vitamin D3) 25 25 mcg PO DAILY 06/06/21 03/22/22 History mcg (1,000 unit) tablet cranberry 500 mg capsule 500 mg PO DAILY 06/06/21 03/22/22 History diphenhydramine HCl 25 mg capsule 25 mg PO HS 06/06/21 03/22/22 History (Benadryl) furosemide 20 mg tablet 20 mg PO DAILY 06/06/21 03/22/22 History metoprolol tartrate 50 mg tablet 50 mg PO BID 06/06/21 03/22/22 History omeprazole 40 mg capsule,delayed 40 mg PO DAILY 06/06/21 03/22/22 History release potassium chloride 10 mEq 10 meq PO DAILY 06/06/21 03/22/22 History tablet,extended release xmsqipp-xbiq-akxpv-oreg-capryl 1 tablet PO DAILY 06/06/21 03/22/22 History vitamin B complex 1 tablet PO DAILY 06/06/21 03/22/22 History zinc sulfate 50 mg zinc (220 mg) 50 mg PO DAILY 06/06/21 03/22/22 History tablet ascorbic acid (vitamin C) 1,000 mg 1 g PO DAILY 03/21/22 03/22/22 History tablet fluticasone propionate 50 2 spray intranasal BID #16 mL 03/21/22 03/22/22 Rx mcg/actuation nasal spray,suspension (Flonase Allergy Relief) mupirocin 2 % topical ointment 1 applic topical BID #22 grams 03/21/22 03/22/22 Rx alendronate 70 mg tablet 1 tablet PO WEEKLY 03/22/22 03/22/22 History losartan 50 mg tablet 2 tablet PO DAILY 03/22/22 03/22/22 History azelastine 137 mcg (0.1 %) nasal 1 spray intranasal Q12H #30 mL 04/03/22 04/05/22 Rx spray aerosol Patient hx anesthesia problems: none Family hx anesthesia problems: none Results Review: All pre-operative results and documents have been reviewed as part of the pre-operative evaluation. [facility] Past Medical History Medical History (Updated 04/04/22 @ 12:58 by Matthew Coelho MD) Atrial fibrillation Chronic GERD Cricopharyngeal hypertrophy Hyperlipidemia Hypertension Morbid obesity with BMI of 40.0-44.9, adult Osteoporosis Family History Family History Father Cancer Other Cancer Grandparent Cancer Diabetes mellitus Sibling Thyroid disorder Social History Social History Smoking status: Never smoker Alcohol intake: never Substance use: never Substance use type: does not use Living arrangements: with family Spiritual care concerns: No Anes - Eval Final PreProcedure Day of Procedure 04/04/22 12:56 Patient weight: morbidly obese Heart: regular rate and rhythm Lungs: clear to auscultation and normal air movement Airway: Mallampati scale class II Neurological: alert and oriented Last oral intake: >/= 8 hours ASA classification: III Emergent: no Anesthetic plan: proceed Anesthesia type and monitoring: general GIVS Results Review: All pre-operative results and documents have been reviewed as part of the pre-operative evaluation. Informed Consent: The patient's anesthetic plan and its attendant risks and benefits were discussed with the patient/family/POA. Questions were solicited and answers provided to the satisfaction of the patient/family/POA.
[2022-04-05 09:43] VITALS: BP 161/81; PULSE 55; RESP 20; TEMP 36.7; O2SAT 99
[2022-04-05] MEDS: LACTATED RINGERS 1,000 ML 150 ML IV CONT (09:51)
[2022-04-05 11:40] VITALS: BP 133/65; PULSE 50; RESP 18; O2SAT 99
[2022-04-05 11:50] VITALS: BP 129/49; PULSE 54; RESP 18; O2SAT 99
[2022-04-05 11:59] VITALS: BP 166/83; PULSE 52; RESP 18; O2SAT 99
== END 2022-04-05 12:14 | disposition home or self-care (01) ==
PROVIDERS: PCP Internal Medicine; Visit Provider Internal Medicine Gastroenterology
PROC: 0DJ08ZZ Inspection of Upper Intestinal Tract, Via Natural or Artificial Opening Endoscopic (ICD-10-PCS; CPT 43235; principal; 2022-04-05 11:30)
DX: R13.10 Dysphagia, unspecified (principal); K21.9 Gastro-esophageal reflux disease without esophagitis; K31.7 Polyp of stomach and duodenum; I10 Essential (primary) hypertension; E78.5 Hyperlipidemia, unspecified; I48.91 Unspecified atrial fibrillation; M81.0 Age-related osteoporosis without current pathological fracture; E66.01 Morbid (severe) obesity due to excess calories; Z68.41 Body mass index [BMI] 40.0-44.9, adult; Z79.01 Long term (current) use of anticoagulants
CPT/HCPCS: 43450; 43239; 88305; J2704; J7120

== ENCOUNTER 2022-04-27 10:08 | Outpatient (CLI) | payer MEDICARE, SELFPAY ==
--- NOTE | ~2022-04-27 | XR_ITS ---
EXAMINATION: XR chest 2V 04/27/2022 10:28 INDICATION: Follow-up pulmonary nodules PROCEDURE: PA and lateral views of the chest COMPARISON: Comparison to multiple prior studies sequentially, with oldest reviewed study dated 10/21. FINDINGS: The lungs are clear. The cardiomediastinal silhouette is within normal limits. There are no pleural effusions. There is no pneumothorax suspected. IMPRESSION: 1: NO ACUTE CARDIOPULMONARY DISEASE. Reviewed, dictated and finalized at location A.
== END 2022-04-27 10:09 | disposition home or self-care (01) ==
LOC: CHSIMG 10:12
PROVIDERS: PCP Internal Medicine; Visit Provider Internal Medicine
DX: R91.1 Solitary pulmonary nodule (principal)
CPT/HCPCS: 71046

== ENCOUNTER 2022-05-30 13:31 | Outpatient (CLI) | payer MEDICARE, SELFPAY ==
[2022-05-30 13:56] LABS: Anion Gap 10 mmol/L (8-16); Blood Urea Nitrogen 23 mg/dL (7-18); Calcium 9.2 mg/dL (8.5-10.1); Carbon Dioxide 26 mmol/L (21-32); Chloride 102 mmol/L (98-108); Estimated Glomerular Filt Rate 44; Glucose 135 mg/dL (70-99); Osmolality Calculated 291 mOsm/kg (285-295); Potassium 3.8 mmol/L (3.5-5.1); Sodium 138 mmol/L (136-145)
== END 2022-05-30 13:32 | disposition home or self-care (01) ==
LOC: CHSLAB 13:33
PROVIDERS: PCP Internal Medicine; Visit Provider Internal Medicine
DX: E87.6 Hypokalemia (principal)
CPT/HCPCS: 36415; 80048

== ENCOUNTER 2022-06-21 12:18 | Outpatient (CLI) | payer MEDICARE, SELFPAY ==
--- NOTE | 2022-06-21 16:24 | WPDPFTINT ---
PFT Procedure Performed PFT Procedure Performed Spirometry with Pre/Post Bronchodilator Plethysmography (Lung Vol) Diffusing Cap (DLCO) Flow Vol Loop PFT Interpretation This is a pulmonary function test with pre and post-bronchodilator spirometry, plethysmography and diffusing capacity. The test was performed and results interpreted in accordance with the 2019 and 2005 ATS/ERS Task Force guidelines respectively using the Global Lung Function Initiative-2012 reference equations. Patient demonstrated good effort and cooperation. Reproducibility criteria were met. The quality of the pre bronchodilator spirometry maneuver was Grade A and post bronchodilator spirometry maneuver was Grade A. Findings: Spirometry: The contour the inspiratory and expiratory flow tracing are normal. The pre bronchodilator FVC is 3.11 L, 112% predicted. The pre bronchodilator FEV1 is 2.41 L, 111% predicted. The pre bronchodilator FEV1: FVC ratio 77%. The post bronchodilator FVC is 3.05 L, representing a 2% decrease. The post bronchodilator FEV1 is 2.47 L, representing a 3% increase. The post bronchodilator FEV1: FVC ratio was 81%. Plethysmography: Total lung capacity is 5.37 L, 109% predicted. The functional residual capacity is 2.77 L, 99% predicted. The residual volume is 2.25 L, 106% predicted. Diffusion capacity: The diffusing capacity unadjusted for hemoglobin and carboxyhemoglobin is 16.9, 84% predicted. The diffusing capacity adjusted for alveolar volume is 3.86, 89% predicted. Impression: The spirometry is normal without evidence of an obstructive abnormality. There is no significant improvement after inhaling a single dose of albuterol. The lung volumes are normal. The diffusing capacity is normal. There are no prior studies for comparison
== END 2022-06-21 12:19 | disposition home or self-care (01) ==
LOC: ANHPFT 12:20
PROVIDERS: PCP Internal Medicine; Visit Provider Internal Medicine
DX: I50.9 Heart failure, unspecified (principal); R06.00 Dyspnea, unspecified
CPT/HCPCS: 94060; 94726; 94729

== ENCOUNTER 2022-06-25 11:38 | Outpatient (CLI) | payer MEDICARE, SELFPAY ==
--- NOTE | ~2022-06-25 | XR_ITS ---
EXAMINATION: XR chest 2V DATE: 06/25/2022 12:10 INDICATION: Dyspnea. TECHNIQUE: Frontal and lateral views of the chest were obtained. COMPARISON: Chest 2 views 04/27/2022, chest CT 10/25/2020 FINDINGS: The chest demonstrates clear lungs without pneumonia, pleural effusion, or pneumothorax. Th e heart size is normal. IMPRESSION: 1. No acute cardiopulmonary disease. Reviewed, dictated and finalized at location B.
[2022-06-25 12:04] LABS: Basophils Absolute Auto 0.06 K/mm3 (0.00-0.10); Basophils Percent Auto 0.9 % (0.0-1.0); Eosinophils Absolute Auto 0.45 K/mm3 (0.02-0.50); Eosinophils Percent Auto 6.6 % (1.0-6.0); Hematocrit 35.9 % (35.0-42.0); Hemoglobin 11.5 g/dL (11.7-13.8); Immature Granulocyte Absolute 0.02 K/mm3 (0.00-0.00); Immature Granulocyte Percent A 0.3 % (0.0-0.0); Lymphocytes Absolute Auto 1.84 K/mm3 (1.10-4.50); Lymphocytes Percent Auto 26.8 % (18.0-42.0); Mean Corpuscular Hemoglobin 29.3 pg (27.0-31.0); Mean Corpuscular Volume 91.3 fL (78.0-102.0); Mean Platelet Volume 9.6 fl (9.2-11.8); Monocytes Absolute Auto 0.64 K/mm3 (0.10-0.90); Monocytes Percent Auto 9.3 % (2.0-11.0); Neutrophils Absolute Auto 3.9 K/mm3 (1.7-7.2); Neutrophils Percent Auto 56.1 % (50.0-70.0); Platelet Count Result 363 K/mm3 (150-420); Red Blood Count 3.93 M/mm3 (4.20-5.40); White Blood Count 6.9 K/mm3 (4.8-10.8)
[2022-06-25 12:30] LABS: Anion Gap 7 mmol/L (8-16); Blood Urea Nitrogen 12 mg/dL (7-18); Calcium 8.9 mg/dL (8.5-10.1); Carbon Dioxide 29 mmol/L (21-32); Chloride 108 mmol/L (98-108); Estimated Glomerular Filt Rate 55; Free T4 Free Thyroxine 1.39 ng/dL (0.76-1.46); Glucose 97 mg/dL (70-99); NT Pro B Type Natriuretic Pept 384 pg/mL (0-125); Osmolality Calculated 297 mOsm/kg (285-295); Potassium 4.6 mmol/L (3.5-5.1); Sodium 144 mmol/L (136-145); Thyroid Stimulating Hormone 1.21 uIU/mL (0.36-3.74)
[2022-06-25 12:53] LABS: Free T3 2.29 pg/mL (2.18-3.98)
--- NOTE | 2022-06-25 13:28 | ECHO_ITS ---
Patient Info Name: Lluvia Castaneda Age: 72 years : 1950 Gender: Female Ht: 63 in Wt: 233 lbs BSA: 2.22 m2 HR: 49 bpm BP: 133 / 69 mmHg Technical Quality: Good Exam Date: 06/25/2022 12:22 PM Exam Location: [facility] Patient Status: Outpatient Admit Date: 06/25/2022 Staff Ordering Physician: Rinku Beasley MD Sample Color Maker: Deni James RDCS, RT Attending Provider: Rinku Beasley MD Referring Physician: Ramos DONG; Exam Type: CA echo doppler color flow Study Info Indications R06.00 - Dyspnea, unspecified Complete two-dimensional, color flow and Doppler transthoracic echocardiogram is performed. Strain analysis performed. Summary 1. Complete two-dimensional, color flow and Doppler transthoracic echocardiogram is performed. 2. Left ventricular chamber dimension is normal. 3. Left ventricular systolic function is normal, estimated at 60-65%. 4. There is mildly increased left ventricular wall thickness. 5. The left ventricular diastolic function is grade I diastolic dysfunction. 6. Global longitudinal strain is normal at -19.7%. 7. Left atrial chamber dimension is moderately enlarged. 8. There is mild mitral valve regurgitation. 9. There is trace tricuspid valve regurgitation. 10. No pulmonary hypertension, estimated pulmonary arterial systolic pressure is 27 mmHg. Left Ventricle Tissue doppler E/e' is not performed. Global longitudinal strain is normal at -19.7%. Left ventricular chamber dimension is normal. Left ventricular systolic function is normal, estimated at 60-65%. There is mildly increased left ventricular wall thickness. The left ventricular diastolic function is grade I diastolic dysfunction. Right Ventricle Right ventricular systolic function is normal and with normal TAPSE 2.7 cm. Right ventricular chamber dimension is normal. Left Atria Left atrial chamber dimension is moderately enlarged. Right Atria Right atrial chamber dimension is normal. Aortic Valve The aortic valve is trileaflet. There is no aortic valve stenosis. There is no aortic valve regurgitation. Pulmonic Valve There is no pulmonic regurgitation. Mitral Valve There is no mitral valve stenosis. There is mild mitral valve regurgitation. Tricuspid Valve There is trace tricuspid valve regurgitation. No pulmonary hypertension, estimated pulmonary arterial systolic pressure is 27 mmHg. Pericardium/Pleural There is no pericardial effusion. Inferior Vena Cava Normal inferior vena cava with >50% collapse upon inspiration consistent with normal right atrial pressure, 5 mmHg. Aorta The aortic root size at the sinus of Valsalva is normal. Left Ventricular Outflow Tract Name Value Normal LVOT 2D LVOT Diameter 2.0 cm LVOT Doppler LVOT Peak Velocity 98 cm/s LVOT Peak Gradient 4 mmHg LVOT Mean Gradient 2 mmHg LVOT VTI 22 cm LVOT VTI/AV VTI Ratio 0.9 LVOT Stroke Volume 71 ml Mitral Valve
== END 2022-06-25 11:39 | disposition home or self-care (01) ==
LOC: CHSCARD 11:40
PROVIDERS: PCP Internal Medicine; Visit Provider Internal Medicine
DX: E86.0 Dehydration (principal); I50.9 Heart failure, unspecified; R06.00 Dyspnea, unspecified; Z79.899 Other long term (current) drug therapy
CPT/HCPCS: 36415; 71046; 80048; 83880; 84439; 84443; 84481; 85025; 93306; 95012

== ENCOUNTER 2022-10-23 10:49 | Outpatient (CLI) | payer MEDICARE, SELFPAY ==
[2022-10-23 11:01] LABS: Basophils Absolute Auto 0.04 K/mm3 (0.00-0.10); Basophils Percent Auto 0.6 % (0.0-1.0); Eosinophils Absolute Auto 0.18 K/mm3 (0.02-0.50); Eosinophils Percent Auto 2.8 % (1.0-6.0); Hematocrit 35.9 % (35.0-42.0); Hemoglobin 11.6 g/dL (11.7-13.8); Immature Granulocyte Absolute 0.02 K/mm3 (0.00-0.00); Immature Granulocyte Percent A 0.3 % (0.0-0.0); Lymphocytes Absolute Auto 2.01 K/mm3 (1.10-4.50); Lymphocytes Percent Auto 31.7 % (18.0-42.0); Mean Corpuscular HGB Conc 32.3 g/dL (32.0-36.0); Mean Corpuscular Volume 92.8 fL (78.0-102.0); Monocytes Percent Auto 9.4 % (2.0-11.0); Neutrophils Absolute Auto 3.5 K/mm3 (1.7-7.2); Neutrophils Percent Auto 55.2 % (50.0-70.0); Platelet Count Result 394 K/mm3 (150-420); Red Blood Count 3.87 M/mm3 (4.20-5.40); Red Cell Distribution Width 13.2 % (11.6-14.4); White Blood Count 6.4 K/mm3 (4.8-10.8)
[2022-10-23 11:42] LABS: Add Urine Microscopic? YES; Appearance Urine Clear (Clear); Bilirubin Urine Negative (Negative); Blood Urine Trace-Intact (Negative); Color Urine Light Yellow (Yellow); Glucose Urine UA Negative (Negative); Ketones Urine Negative (Negative); Leukocyte Esterase Ur Trace LEU/UL (Negative); Nitrate Urine Negative (Negative); Protein Urine Negative (Negative); Specific Grav Ur 1.015 (1.010-1.020); Urobilinogen Urine 0.2 mg/dL (0.2-1.0); pH Urine 5.5 (5.0-8.0)
[2022-10-23 11:43] LABS: Alanine Aminotransferase 17 U/L (14-59); Albumin Level 3.7 g/dL (3.4-5.0); Alkaline Phosphatase 61 U/L (46-116); Anion Gap 10 mmol/L (8-16); Aspartate Amino Transferase 13 U/L (15-37); Bilirubin,Total 0.3 mg/dL (0.00-1.00); Blood Urea Nitrogen 9 mg/dL (7-18); Calcium 8.9 mg/dL (8.5-10.1); Carbon Dioxide 26 mmol/L (21-32); Chloride 105 mmol/L (98-108); Cholesterol 220 mg/dL (0-200); Estimated Glomerular Filt Rate 52; Free T3 2.11 pg/mL (2.18-3.98); Free T4 Free Thyroxine 1.25 ng/dL (0.76-1.46); Glucose 92 mg/dL (70-99); HDL Direct 56 mg/dL (40-60); LDL Cholesterol Calculated 142 mg/dL (<130); Magnesium 2.2 mg/dL (1.8-2.4); NT Pro B Type Natriuretic Pept 180 pg/mL (0-125); Osmolality Calculated 290 mOsm/kg (285-295); Potassium 4.7 mmol/L (3.5-5.1); Sodium 141 mmol/L (136-145); Thyroid Stimulating Hormone 0.81 uIU/mL (0.36-3.74); Total Protein 7.2 g/dL (6.4-8.2); Triglycerides 112 mg/dL (0-150)
[2022-10-23 11:46] LABS: Bacteria Urine Trace /hpf; Mucus Urine Few /lpf; RBC Urine 0-2 /hpf (0-2); Renal Epithelial Cells Urine Few /hpf; Squamous Epithelial Cell Urine Few /hpf (Few); WBC Urine 0-3 /hpf (0-3)
[2022-10-29 20:06] LABS: Vitamin D 25 Hydroxy 42 ng/mL (30-100)
== END 2022-10-23 10:50 | disposition home or self-care (01) ==
LOC: CHSLAB 10:51
PROVIDERS: PCP Internal Medicine; Visit Provider Internal Medicine
DX: E78.5 Hyperlipidemia, unspecified (principal); N39.0 Urinary tract infection, site not specified; I10 Essential (primary) hypertension; R53.83 Other fatigue; M81.0 Age-related osteoporosis without current pathological fracture; I50.9 Heart failure, unspecified
CPT/HCPCS: 36415; 80053; 80061; 81001; 82306; 83735; 83880; 84439; 84443; 84481; 85025

== ENCOUNTER 2022-11-29 11:28 | Outpatient (CLI) | payer MEDICARE, SELFPAY ==
--- NOTE | ~2022-11-29 | DEXA_ITS ---
Bone Density Report Name: VICTOR HUGO JONES Age: 72 Sex: Female Ethnicity: White Date of : 1950 Indication: postmenopausal; screening for osteoporosis; height loss; prior fracture; Referring Provider: NADIA GARCÍA Study: Bone densitometry was performed. Exam Date: November 29, 2022 Accession number: [id number] Bone Density: Region BMD T-score Z-score Classification AP Spine(L1, L2) 1.029 0.5 2.5 Normal Femoral Neck (Left) 0.637 -1.9 -0.1 Osteopenia Total Hip (Left) 0.777 -1.4 0.2 Osteopenia Femoral Neck (Right) 0.582 -2.4 -0.6 Osteopenia Total Hip (Right) 0.782 -1.3 0.2 Osteopenia Femoral Neck Mean 0.609 -2.2 -0.3 Osteopenia Total Hip Mean 0.779 -1.3 0.2 Osteopenia World Health Organization criteria for BMD impression classify patients as: Normal (T-score at or above -1.0), Osteopenia (T-score between -1.0 and -2.5), or Osteoporosis (T-score at or below -2.5). 10-year Fracture Risk: FRAX not reported because: Prior hip or vertebral fracture Treated for osteoporosis Clinical Information Provided by Patient: Have had a previous hip or vertebral fracture Has had a low trauma fracture Is being treated for osteoporosis Has used the following medications: Fosamax (i.e. alendronate), Vitamin D, Calcium Patient maximum height was 65 Menopause Age: 55 No regular weight bearing exercise Does not regularly consume dairy products Drinks caffeinated beverages Onset of menses at age 17 Number of children 2 Impression: The patient has low bone mass, based on the Right Femoral Neck T-score. The patient has risk factors, including: previous fracture. Discussion: It is important to ask patients whether they are taking their medications and to encourage continued and appropriate compliance with their osteoporosis therapies to reduce fracture risk. It is also important to review their risk factors and encourage appropriate calcium and vitamin D intakes, exercise, fall prevention and other lifestyle measures. Follow-Up: Consider a repeat BMD and Vertebral Fracture Assessment (VFA) exam in 2 years or sooner if medically necessary, to reassess this patient's status. Reported by: Dr. Jason Esquivel on 11/29/2022 12:32:00 PM. Reviewed, dictated and finalized at location [facility]
--- NOTE | ~2022-11-29 | MM_ITS ---
EXAMINATION: MM screening [facility] BI w [facility] HISTORY: Screening mammogram TECHNIQUE: Craniocaudal and mediolateral oblique 3-D tomosynthesis images were obtained and synthetic 2-D images were generated. CAD analysis was submitted and interpreted. COMPARISON: 11/23/2021, 10/25/2020, 10/19/2019 BREAST PARENCHYMAL COMPOSITION: The breasts are almost entirely fatty. FINDINGS: No suspicious mass, calcification, or architectural distortion are identified in either shani ast to suggest malignancy. There has been no suspicious interval change. IMPRESSION: 1. No mammographic evidence of malignancy. 2. Recommend routine screening mammography in one year. BI-RADS Category 1: Negative Reviewed, dictated and finalized at location A. [employer]
== END 2022-11-29 11:29 | disposition home or self-care (01) ==
LOC: CHSIMG 11:30
PROVIDERS: PCP Internal Medicine; Visit Provider Internal Medicine
DX: Z12.31 Encounter for screening mammogram for malignant neoplasm of breast (principal); Z78.0 Asymptomatic menopausal state; M85.89 Other specified disorders of bone density and structure, multiple sites
CPT/HCPCS: 77063; 77067; 77080

== ENCOUNTER 2023-04-23 09:22 | Outpatient (CLI) | payer MEDICARE, SELFPAY ==
[2023-04-23 09:41] LABS: Basophils Absolute Auto 0.04 K/mm3 (0.00-0.10); Basophils Percent Auto 0.7 % (0.0-1.0); Eosinophils Absolute Auto 0.17 K/mm3 (0.02-0.50); Eosinophils Percent Auto 2.9 % (1.0-6.0); Hematocrit 33.8 % (35.0-42.0); Hemoglobin 10.9 g/dL (11.7-13.8); Immature Granulocyte Absolute 0.02 K/mm3 (0.00-0.00); Immature Granulocyte Percent A 0.3 % (0.0-0.0); Lymphocytes Absolute Auto 1.82 K/mm3 (1.10-4.50); Lymphocytes Percent Auto 31.5 % (18.0-42.0); Mean Corpuscular HGB Conc 32.2 g/dL (32.0-36.0); Mean Corpuscular Hemoglobin 29.8 pg (27.0-31.0); Mean Corpuscular Volume 92.3 fL (78.0-102.0); Mean Platelet Volume 8.4 fl (9.2-11.8); Monocytes Absolute Auto 0.51 K/mm3 (0.10-0.90); Monocytes Percent Auto 8.8 % (2.0-11.0); Neutrophils Absolute Auto 3.2 K/mm3 (1.7-7.2); Neutrophils Percent Auto 55.8 % (50.0-70.0); Platelet Count Result 327 K/mm3 (150-420); Red Blood Count 3.66 M/mm3 (4.20-5.40); Red Cell Distribution Width 12.8 % (11.6-14.4); White Blood Count 5.8 K/mm3 (4.8-10.8)
[2023-04-23 09:42] LABS: Appearance Urine Clear (Clear); Bilirubin Urine Negative (Negative); Blood Urine 1+ (Negative); Color Urine Light Yellow (Yellow); Glucose Urine UA Negative (Negative); Ketones Urine Negative (Negative); Leukocyte Esterase Ur Negative (Negative); Nitrate Urine Negative (Negative); Protein Urine Negative (Negative); Specific Grav Ur <= 1.005 (1.010-1.020); Urobilinogen Urine 0.2 mg/dL (0.2-1.0)
[2023-04-23 09:57] LABS: Add Urine Microscopic? YES; RBC Urine 0-2 /hpf (0-2); Squamous Epithelial Cell Urine Occasional /hpf (Few); WBC Urine 0-3 /hpf (0-3)
[2023-04-23 09:58] LABS: Bacteria Urine Trace /hpf
[2023-04-23 10:50] LABS: Alanine Aminotransferase 20 U/L (14-59); Albumin Level 3.5 g/dL (3.4-5.0); Alkaline Phosphatase 55 U/L (46-116); Anion Gap 10 mmol/L (8-16); Aspartate Amino Transferase 14 U/L (15-37); Bilirubin,Total 0.3 mg/dL (0.00-1.00); Blood Urea Nitrogen 11 mg/dL (7-18); Calcium 9.1 mg/dL (8.5-10.1); Carbon Dioxide 27 mmol/L (21-32); Chloride 105 mmol/L (98-108); Cholesterol 218 mg/dL (0-200); Estimated Glomerular Filt Rate 53; Ferritin 54 ng/mL (8-252); Free T4 Free Thyroxine 1.15 ng/dL (0.76-1.46); Glucose 88 mg/dL (70-99); HDL Direct 58 mg/dL (40-60); Iron 67 ug/dL (50-170); LDL Cholesterol Calculated 135 mg/dL (<130); Osmolality Calculated 292 mOsm/kg (285-295); Potassium 4.2 mmol/L (3.5-5.1); Sodium 142 mmol/L (136-145); Total Protein 6.8 g/dL (6.4-8.2); Triglycerides 124 mg/dL (0-150); Vitamin B12 524 pg/mL (193-986)
== END 2023-04-23 09:23 | disposition home or self-care (01) ==
PROVIDERS: PCP Internal Medicine; Visit Provider Internal Medicine
DX: D64.9 Anemia, unspecified (principal); I48.19 Other persistent atrial fibrillation; E78.2 Mixed hyperlipidemia
CPT/HCPCS: 36415; 80053; 80061; 81001; 82607; 82728; 83540; 84439; 84443; 85025

== ENCOUNTER 2023-05-10 09:56 | Outpatient (CLI) | payer MEDICARE, SELFPAY ==
--- NOTE | 2023-05-17 18:09 | WPDSLEEPSTUD ---
Sleep Study Date of Study: 05/10/23 Ordering Provider: Tara Thurman, DRY PLASTERER Interpreting Physician: Genie Freed MD Sleep Study Type: Split Polysomnogram Height: 1.63 m Weight: 99.79 kg Body Mass Index: 37.8 Neck Circumference (inches): 15 [place]: 4 Reason for Sleep Study Fatigue; atrial fibrillation with history of cardioversion, hypertension, obesity, frequent awakenings at night. Her manager contract referred her for evaluation. Sleep History Lluvia Castaneda is a 72-year-old female with constant fatigue. She is frequently short of breath. She was diagnosed with atrial fibrillation 2 years ago. She had a cardioversion which was successful. She occasionally awakens from sleep feeling short of breath. She rarely awakens at night with heartburn, belching or coughing. Her granddaughter tells her that she snores. She occasionally has difficulty sleeping with a cold. She occasionally wakes up gasping for breath at night. She occasionally has breathing problems at night observed by others. She rarely sweats excessively night. She occasionally notices her heart pounding or beating irregularly night. She occasionally falls asleep during the day, never involuntarily, never while driving. She does not have loss of muscle tone with strong emotion. She does not have daytime difficulties due to excessive sleepiness. She does not feel paralyzed on waking falling asleep. she does not have vivid dreamlike scenes on waking or falling asleep. She does not feel afraid to go to sleep. She rarely has nightmares. She occasionally remembers her dreams. She frequently has racing thoughts. She does not feel sad or depressed. She rarely has anxiety. She occasionally has muscular tension. She occasionally has restless type movements in her legs. She rarely kicks at night. She occasionally has crawling aching feelings in her legs. She occasionally has leg pain at night. She does not have morning jaw pain. She occasionally is bothered by pain during the day, occasionally awakened by pain at night. She occasionally wakes up feeling stiff in the morning. She frequently wakes up with sore or achy muscles and pain in the neck and spine. Normal bedtime is between 11:00 p.m. and 12 midnight, falling asleep within 45 minutes to an hour. She wakes up between 3 and 4 times during the night to go to the bathroom, reposition centrals to return to sleep. She is able to return to sleep within 5-10 minutes. Normal wake up time is between 8:00 a.m. and 9:00 a.m..; she keeps the same schedule on weekends. She estimates getting between 6 and 8 hours of sleep at night. She does not generally take naps in the afternoon or evening. She is drowsy for 1 hour after waking. She feels better in the afternoon compared to other times of day. Habits: Never smoked tobacco. Caffeine on occasion, a caffeinated soda. No alcohol or recreational substances. [facility] Past Medical History Medical History Atrial fibrillation Chronic GERD Cricopharyngeal hypertrophy Hyperlipidemia Hypertension Morbid obesity with BMI of 40.0-44.9, adult Osteoporosis Family History Family History Father Cancer Other Cancer Grandparent Cancer Diabetes mellitus Sibling Thyroid disorder Social History Social History Smoking status: Never smoker Alcohol intake: never Substance use: never Substance use type: does not use Living arrangements: with family Spiritual care concerns: No Medications Home Medications Medication Instructions Recorded Confirmed Type Adult Probiotic 1 cap PO DAILY 06/06/21 03/22/22 History acetaminophen 500 mg tablet 1,000 mg PO BID 06/06/21 03/22/22 History apixaban 5 mg tablet (Eliquis) 5 mg PO BID 06/06/21 03/22/22 History cholecalciferol (vitamin D3) 25 25 mcg PO DUC
[2023-05-28 17:42] VITALS: BMI 37.8
== END 2023-05-11 08:04 | disposition home or self-care (01) ==
LOC: ANHCSM 10:02
PROVIDERS: PCP Internal Medicine; Visit Provider Nurse Practitioner Adult Health
DX: R53.83 Other fatigue (principal); I48.0 Paroxysmal atrial fibrillation; G47.33 Obstructive sleep apnea (adult) (pediatric)
CPT/HCPCS: 95811

== ENCOUNTER 2023-06-04 10:13 | Outpatient (CLI) | payer MEDICARE, SELFPAY ==
[2023-06-04 10:33] LABS: Basophils Absolute Auto 0.06 K/mm3 (0.00-0.10); Basophils Percent Auto 0.9 % (0.0-1.0); Eosinophils Absolute Auto 0.29 K/mm3 (0.02-0.50); Eosinophils Percent Auto 4.2 % (1.0-6.0); Hematocrit 33.5 % (35.0-42.0); Hemoglobin 11.1 g/dL (11.7-13.8); Immature Granulocyte Absolute 0.01 K/mm3 (0.00-0.00); Immature Granulocyte Percent A 0.1 % (0.0-0.0); Immature Reticulocyte Fraction 13.3 % (2.0-16.52); Lymphocytes Absolute Auto 1.66 K/mm3 (1.10-4.50); Lymphocytes Percent Auto 24.2 % (18.0-42.0); Mean Corpuscular HGB Conc 33.1 g/dL (32.0-36.0); Mean Corpuscular Hemoglobin 30.5 pg (27.0-31.0); Mean Platelet Volume 9.5 fl (9.2-11.8); Monocytes Absolute Auto 0.59 K/mm3 (0.10-0.90); Monocytes Percent Auto 8.6 % (2.0-11.0); Neutrophils Absolute Auto 4.3 K/mm3 (1.7-7.2); Platelet Count Result 379 K/mm3 (150-420); Red Blood Count 3.64 M/mm3 (4.20-5.40); Reticulocyte Hemoglobin Conten 33.3 pg (28.0-35.0); Reticulocyte Percent 1.87 % (0.50-1.50); Reticulocytes Absolute 0.07 M/mm3 (0.02-0.1); White Blood Count 6.9 K/mm3 (4.8-10.8)
== END 2023-06-04 10:14 | disposition home or self-care (01) ==
LOC: CHSLAB 10:15
PROVIDERS: PCP Internal Medicine; Visit Provider Internal Medicine
DX: D64.9 Anemia, unspecified (principal)
CPT/HCPCS: 36415; 85025; 85046

== ENCOUNTER 2023-07-12 09:25 | Outpatient (CLI) | payer MEDICARE, SELFPAY ==
[2023-07-12 09:40] LABS: Basophils Absolute Auto 0.04 K/mm3 (0.00-0.10); Basophils Percent Auto 0.6 % (0.0-1.0); Eosinophils Absolute Auto 0.18 K/mm3 (0.02-0.50); Eosinophils Percent Auto 2.7 % (1.0-6.0); Immature Granulocyte Absolute 0.02 K/mm3 (0.00-0.00); Immature Granulocyte Percent A 0.3 % (0.0-0.0); Immature Reticulocyte Fraction 14.4 % (2.0-16.52); Lymphocytes Absolute Auto 1.77 K/mm3 (1.10-4.50); Lymphocytes Percent Auto 26.1 % (18.0-42.0); Mean Corpuscular HGB Conc 32.4 g/dL (32.0-36.0); Mean Corpuscular Hemoglobin 30.1 pg (27.0-31.0); Mean Corpuscular Volume 92.9 fL (78.0-102.0); Mean Platelet Volume 8.6 fl (9.2-11.8); Monocytes Absolute Auto 0.55 K/mm3 (0.10-0.90); Monocytes Percent Auto 8.1 % (2.0-11.0); Neutrophils Absolute Auto 4.2 K/mm3 (1.7-7.2); Neutrophils Percent Auto 62.2 % (50.0-70.0); Platelet Count Result 350 K/mm3 (150-420); Red Blood Count 3.66 M/mm3 (4.20-5.40); Red Cell Distribution Width 13.4 % (11.6-14.4); Reticulocyte Hemoglobin Conten 33.1 pg (28.0-35.0); Reticulocyte Percent 1.85 % (0.50-1.50); Reticulocytes Absolute 0.07 M/mm3 (0.02-0.1); White Blood Count 6.8 K/mm3 (4.8-10.8)
[2023-07-12 10:46] LABS: Anion Gap 12 mmol/L (8-16); Blood Urea Nitrogen 19 mg/dL (7-18); Calcium 9.5 mg/dL (8.5-10.1); Carbon Dioxide 27 mmol/L (21-32); Chloride 106 mmol/L (98-108); Estimated Glomerular Filt Rate 52; Ferritin 38 ng/mL (8-252); Glucose 95 mg/dL (70-99); Iron 62 ug/dL (50-170); NT Pro B Type Natriuretic Pept 1629 pg/mL (0-125); Osmolality Calculated 302 mOsm/kg (285-295); Potassium 4.5 mmol/L (3.5-5.1); Sodium 145 mmol/L (136-145)
== END 2023-07-12 09:26 | disposition home or self-care (01) ==
LOC: CHSLAB 09:27
PROVIDERS: PCP Internal Medicine; Visit Provider Internal Medicine
DX: D64.9 Anemia, unspecified (principal); I10 Essential (primary) hypertension; I48.19 Other persistent atrial fibrillation; I50.9 Heart failure, unspecified
CPT/HCPCS: 36415; 80048; 82728; 83540; 83880; 85025; 85046

== ENCOUNTER 2023-07-24 00:32 | Day surgery (SDC) | payer MEDICARE, SELFPAY ==
[2023-07-18 12:48] VITALS: BMI 39.0
--- NOTE | 2023-07-23 10:28 | PM.HPGS ---
History of Present Illness History of Present Illness Consent: Risks, benefits, and alternatives have been discussed and questions answered. Patient agrees to proceed with procedure. Chief complaint: anemia Narrative: Lluvia Castaneda is a 73 year old female who is being investigated because of progressive drop in her blood counts.? Her red blood count which was always greater than 4, has been progressively dropping.? Is 3.93 year ago and now down to 3.64 Her hemoglobin which was 11.9 a year ago has been down to 10.9 in April and now up a bit to 11.1.? She does not see blood her stools.? She states that sometime ago she was told she was anemic because she had been on a PPI all her life and that would interfere with iron absorption. She has been on Eliquis for about 1 year because of atrial fibrillation Review of Systems Review of Systems: All systems reviewed & are unremarkable except as noted in HPI and below PMFSH Past Medical History Medical History Atrial fibrillation Chronic GERD Cricopharyngeal hypertrophy Hyperlipidemia Hypertension Morbid obesity with BMI of 40.0-44.9, adult Osteoporosis Family History Family History Father Cancer Other Cancer Grandparent Cancer Diabetes mellitus Sibling Thyroid disorder Social History Social History Smoking status: Never smoker Alcohol intake: never Substance use: never Substance use type: does not use Living arrangements: with family Spiritual care concerns: No Meds Home Medications and Allergies Home Medications Medication Instructions Recorded Confirmed Type Adult Probiotic 1 cap PO DAILY 06/06/21 07/18/23 History apixaban 5 mg tablet (Eliquis) 5 mg PO BID 06/06/21 07/18/23 History cranberry 500 mg capsule 500 mg PO DAILY 06/06/21 07/18/23 History diphenhydramine HCl 25 mg capsule 25 mg PO HS 06/06/21 07/18/23 History (Benadryl) metoprolol tartrate 50 mg tablet 100 mg PO BID 06/06/21 07/24/23 History omeprazole 40 mg capsule,delayed 40 mg PO DAILY 06/06/21 07/24/23 History release amiodarone 100 mg tablet 50 mg PO EVERY OTHER DAY 05/24/22 07/24/23 History Turmeric-Curcumen 1 tab-cap PO DAILY 07/18/23 07/18/23 History acetaminophen 500 mg tablet 1,000 mg PO BID 07/18/23 07/18/23 History (Tylenol Extra Strength) azelastine 137 mcg (0.1 %) nasal 1 spray intranasal BID 07/18/23 07/18/23 History spray aerosol fluticasone propionate 50 2 spray intranasal BID 07/18/23 07/18/23 History mcg/actuation nasal spray,suspension vdpmqokeozuh-bedjszax-zvbged tablet 1 tablet PO DAILY 07/18/23 07/18/23 History spironolactone 50 mg tablet 50 mg PO DAILY 07/18/23 07/24/23 History Allergies Allergy/AdvReac Type Severity Reaction Status Date / Time hydrocodone [From Vicodin] Allergy Intermediate Itching Verified 07/24/23 08:32 red dye Allergy Intermediate Hives Verified 07/24/23 08:32 Exam Const: General: alert Orientation/consciousness: patient oriented x3 Resp: Auscultation: clear to auscultation bilaterally Cardio: Rhythm: regular rhythm GI: GI Palp: Yes Soft to palpation and No Tenderness to palpation present (GI) Neuro: General: patient oriented x3 Assessment and Plan Assessment and plan (1) Anemia: Code(s): D64.9 - Anemia, unspecified Status: Acute Assessment and Plan: Colonoscopy with possible biopsy or polypectomy or cautery or injection of substances.
[2023-07-24 08:34] VITALS: BP 118/89; PULSE 95; RESP 17; TEMP 36; O2SAT 94; BMI 35.3
[2023-07-24] MEDS: LACTATED RINGERS 1,000 ML 150 ML IV CONT (08:43)
--- NOTE | 2023-07-24 09:20 | WPDANESEPPF ---
Anes - Initial Pre Proc Eval Procedure: Operation Date: 07/24/23 10:15 Proposed Procedures p Colonoscopy - Anil Sierra MD Date/Time: 07/24/23 09:20 Surgeon: Anil Sierra MD Pre Op Diagnosis: anemia Patient Data Age: 73 Gender: F Height: 1.6 m Weight: 90.4 kg Last Vital Signs Temp 96.8 F L 07/24/23 08:34 Pulse 95 07/24/23 08:34 Resp 17 07/24/23 08:34 BP 118/89 07/24/23 08:34 Pulse Ox 94 07/24/23 08:34 O2 Del Method Room Air 07/24/23 08:34 Allergies Allergy/AdvReac Type Severity Reaction Status Date / Time hydrocodone [From Vicodin] Allergy Intermediate Itching Verified 07/24/23 08:32 red dye Allergy Intermediate Hives Verified 07/24/23 08:32 Home Medications Medication Instructions Recorded Confirmed Type Adult Probiotic 1 cap PO DAILY 06/06/21 07/18/23 History apixaban 5 mg tablet (Eliquis) 5 mg PO BID 06/06/21 07/18/23 History cranberry 500 mg capsule 500 mg PO DAILY 06/06/21 07/18/23 History diphenhydramine HCl 25 mg capsule 25 mg PO HS 06/06/21 07/18/23 History (Benadryl) metoprolol tartrate 50 mg tablet 100 mg PO BID 06/06/21 07/24/23 History omeprazole 40 mg capsule,delayed 40 mg PO DAILY 06/06/21 07/24/23 History release amiodarone 100 mg tablet 50 mg PO EVERY OTHER DAY 05/24/22 07/24/23 History Turmeric-Curcumen 1 tab-cap PO DAILY 07/18/23 07/18/23 History acetaminophen 500 mg tablet 1,000 mg PO BID 07/18/23 07/18/23 History (Tylenol Extra Strength) azelastine 137 mcg (0.1 %) nasal 1 spray intranasal BID 07/18/23 07/18/23 History spray aerosol fluticasone propionate 50 2 spray intranasal BID 07/18/23 07/18/23 History mcg/actuation nasal spray,suspension oljyjbveqfjv-yaveewdt-wkpslq tablet 1 tablet PO DAILY 07/18/23 07/18/23 History spironolactone 50 mg tablet 50 mg PO DAILY 07/18/23 07/24/23 History Patient hx anesthesia problems: none Family hx anesthesia problems: none Results Review: All pre-operative results and documents have been reviewed as part of the pre-operative evaluation. [facility] Past Medical History Medical History Atrial fibrillation Chronic GERD Cricopharyngeal hypertrophy Hyperlipidemia Hypertension Morbid obesity with BMI of 40.0-44.9, adult Osteoporosis Family History Family History Father Cancer Other Cancer Grandparent Cancer Diabetes mellitus Sibling Thyroid disorder Social History Social History Smoking status: Never smoker Alcohol intake: never Substance use: never Substance use type: does not use Living arrangements: with family Spiritual care concerns: No Anes - Eval Final PreProcedure Day of Procedure 07/24/23 09:20 Patient weight: obese Heart: irregular rhythm Lungs: clear to auscultation Airway: Mallampati scale class II Neurological: alert and oriented Last oral intake: >/= 8 hours ASA classification: III Emergent: no Anesthetic plan: proceed Anesthesia type and monitoring: general GIVS and standard monitoring Results Review: All pre-operative results and documents have been reviewed as part of the pre-operative evaluation. Informed Consent: The patient's anesthetic plan and its attendant risks and benefits were discussed with the patient/family/POA. Questions were solicited and answers provided to the satisfaction of the patient/family/POA.
[2023-07-24 10:15] VITALS: BP 110/75; PULSE 83; RESP 18; O2SAT 100
[2023-07-24 10:25] VITALS: BP 103/70; PULSE 83; RESP 23; O2SAT 100
[2023-07-24 10:35] VITALS: BP 124/79; PULSE 79; RESP 20; O2SAT 100
--- NOTE | 2023-07-24 10:47 | SUR.PHASEII ---
Patient on blood thinner. Patient's hand had large raised bruised area after removing IV. Dr. Domingo assessed the area and instructed patient to keep pressure on the site. Coban was applied.
== END 2023-07-24 10:49 | disposition home or self-care (01) ==
PROVIDERS: PCP Internal Medicine; Visit Provider Internal Medicine Gastroenterology
PROC: 0DJD8ZZ Inspection of Lower Intestinal Tract, Via Natural or Artificial Opening Endoscopic (ICD-10-PCS; CPT 45378; principal; 2023-07-24 10:15)
DX: D64.9 Anemia, unspecified (principal); K62.1 Rectal polyp; I48.91 Unspecified atrial fibrillation; I10 Essential (primary) hypertension; E78.5 Hyperlipidemia, unspecified; M81.0 Age-related osteoporosis without current pathological fracture; K21.9 Gastro-esophageal reflux disease without esophagitis; E66.9 Obesity, unspecified; Z68.35 Body mass index [BMI] 35.0-35.9, adult; Z79.01 Long term (current) use of anticoagulants
CPT/HCPCS: 45380; 88305; J7120

== ENCOUNTER 2023-07-29 13:56 | Outpatient (CLI) | payer MEDICARE, SELFPAY ==
--- NOTE | ~2023-07-29 | XR_ITS ---
Clinical Indication: Shortness of breath PA and lateral views of the chest: Comparison: 06/25/2022 Findings: The lungs are clear, without evidence of focal consolidation or pleural effusion. Cardiome diastinal silhouette is within normal limits. Bones and soft tissues are unremarkable. Impression: Normal chest. Reviewed, dictated and finalized at location . LAYER Impression: Normal chest.
== END 2023-07-29 13:57 | disposition home or self-care (01) ==
PROVIDERS: PCP Internal Medicine; Visit Provider Internal Medicine
DX: R06.02 Shortness of breath (principal)
CPT/HCPCS: 71046

== ENCOUNTER 2023-08-12 10:23 | Outpatient (CLI) | payer MEDICARE, SELFPAY ==
[2023-08-12 10:45] LABS: Basophils Absolute Auto 0.1 K/mm3 (0.0-0.1); Basophils Percent Auto 0.7 % (0.2-1.2); Eosinophils Absolute Auto 0.2 K/mm3 (0-0.3); Eosinophils Percent Auto 2.2 % (0-4.4); Hematocrit 38.4 % (37.0-47.0); Hemoglobin 12.4 g/dL (12.0-15.0); Immature Granulocyte Absolute 0.02 K/mm3 (0.00-0.031); Immature Granulocyte Percent A 0.2 % (0-0.5); Lymphocytes Absolute Auto 1.88 K/mm3 (0.9-3.2); Lymphocytes Percent Auto 22.8 % (18.3-44.2); Mean Corpuscular HGB Conc 32.3 g/dl (32-36); Mean Corpuscular Hemoglobin 29.5 pg (26-34); Mean Corpuscular Volume 91.4 fl (80-100); Mean Platelet Volume 8.7 fl (7.4-10.4); Monocytes Absolute Auto 0.6 K/mm3 (0.1-0.6); Monocytes Percent Auto 7.3 % (2.6-8.5); Neutrophils Absolute Auto 5.5 K/mm3 (1.3-6.7); Neutrophils Percent Auto 66.8 % (45.5-73.1); Platelet Count Result 371 k/mm3 (150-375); Red Cell Distribution Width 12.8 % (11.5-14.5); White Blood Count 8.2 K/mm3 (4.5-10.0)
[2023-08-12 17:08] LABS: Alanine Aminotransferase 14 U/L (6-35); Albumin Level 4.6 g/dL (3.5-5.1); Alkaline Phosphatase 62 U/L (38-126); Anion Gap 11 mmol/L (8-16); Aspartate Amino Transferase 21 U/L (14-36); Bilirubin,Total 0.4 mg/dL (0.2-1.3); Blood Urea Nitrogen 17 mg/dL (7-17); Carbon Dioxide 28 mmol/L (22-30); Chloride 102 mmol/L (98-107); Estimated Glomerular Filt Rate 44; Glucose 95 mg/dL (65-110); Lactate Dehydrogenase 169 U/L (120-246); Potassium 5.1 mmol/L (3.4-5.0); Sodium 141 mmol/L (137-145)
[2023-08-12 17:30] LABS: Iron 92 ug/dL (37-170)
[2023-08-12 17:50] LABS: Percent Iron Saturation 25 % (20-50)
[2023-08-12 18:25] LABS: Folic Acid > 20.0 ng/mL (2.76->20)
[2023-08-15 10:25] LABS: Methylmalonic Acid 221 nmol/L (87-318)
[2023-08-15 14:17] LABS: Erythropoietin (EPO) 13.6 mIU/mL (2.6-18.5)
== END 2023-08-12 10:24 | disposition home or self-care (01) ==
PROVIDERS: PCP Internal Medicine; Visit Provider Internal Medicine Hematology & Oncology
DX: D64.9 Anemia, unspecified (principal)
CPT/HCPCS: 36415; 80053; 82607; 82668; 82728; 82746; 83540; 83550; 83615; 83921; 84238; 85025

== ENCOUNTER 2023-08-21 09:26 | Outpatient (CLI) | payer MEDICARE, SELFPAY | END 2023-08-21 09:27 | disposition home or self-care (01) | LOC: CHSCARD 09:29 | PROVIDERS: PCP Internal Medicine; Visit Provider Internal Medicine | DX: R06.00 Dyspnea, unspecified (principal); R94.2 Abnormal results of pulmonary function studies | CPT/HCPCS: 94060; 94726; 94729; 95012 ==

== ENCOUNTER 2023-09-17 13:47 | Outpatient (CLI) | payer MEDICARE, SELFPAY ==
--- NOTE | ~2023-09-17 | CT_ITS ---
EXAMINATION: CT diagnostic chest wo con DATE: 09/17/2023 14:43 INDICATION: Adverse effective antiarrhythmic drugs. TECHNIQUE: Computed tomography (CT) of the chest was performed without intravenous contrast. The dose -length product was 410.72 mGy-cm. Automated exposure control and iterative reconstruction technique were employed. COMPARISON: CT dated 10/25/2019 FINDINGS: Heart size normal. No thoracic lymphadenopathy. There is mild atherosclerosis. No significa nt pleural or pericardial effusion. There are cholecystectomy clips. Calcified granuloma left upper l obe. Stable small pulmonary nodules measuring 3 mm or less, likely benign. No focal airspace consolid ation. No endobronchial lesions. No pneumothorax. No focal consolidation. Mild thoracic spondylosis w ith accentuated kyphosis. Mild chronic wedge deformity of T5. IMPRESSION: 1. Stable small pulmonary nodules measuring 3 mm or less, likely benign. Consider follow-up low dose CT in 12 months. Reviewed, dictated and finalized at location B. ER PLATE PRINTER IMPRESSION: 1. Stable small pulmonary nodules measuring 3 mm or less, likely benign. Consid er follow-up low dose CT in 12 months.
== END 2023-09-17 13:48 | disposition home or self-care (01) ==
PROVIDERS: PCP Internal Medicine; Visit Provider Physician Assistant
DX: J44.9 Chronic obstructive pulmonary disease, unspecified (principal); T46.2X5A Adverse effect of other antidysrhythmic drugs, initial encounter; R91.8 Other nonspecific abnormal finding of lung field
CPT/HCPCS: 71250

== ENCOUNTER 2023-10-21 00:43 | Day surgery (SDC) | payer MEDICARE, SELFPAY ==
[2023-10-18 16:24] VITALS: BMI 38.7
[2023-10-21] VITALS (7 sets, daily range): BP systolic 92–118; BP diastolic 63–89; PULSE 55–93; RESP 14–20; TEMP 36.8; O2SAT 95–100
--- NOTE | 2023-10-21 10:30 | ECG_ITS ---
Measurements Intervals [place] Rate: 83 P: HI: 0 QRS: -10 QRSD: 89 T: 28 QT: 366 QTc: 432 Interpretive Statements ATRIAL FIBRILLATION EARLY PRECORDIAL R/S TRANSITION BORDERLINE ST ABNORMALITY- ANTERIOR LEADS ABNORMAL ECG COMPARED TO ECG 06/07/2021 11:02:13 ATRIAL FIBRILLATION NOW PRESENT ST (T WAVE) DEVIATION NOW PRESENT Electronically Signed On 10-21-2023 11:55:31 RAIL TRACK MAINTAINER by Migel Castillo D.O.
[2023-10-21 10:58] LABS: Anion Gap 8 mmol/L (8-16); Blood Urea Nitrogen 18 mg/dL (7-17); Calcium 9.1 mg/dL (8.4-10.2); Carbon Dioxide 23 mmol/L (22-30); Chloride 107 mmol/L (98-107); Estimated CRCL calculation 56 ml/min; Estimated Glomerular Filt Rate > 60; Glucose 102 mg/dL (65-110); Magnesium 2.2 mg/dL (1.6-2.3); Potassium 4.2 mmol/L (3.4-5.0); Sodium 138 mmol/L (137-145)
--- NOTE | 2023-10-21 12:01 | PM.IMHP ---
H&P: HPI History of Present Illness Date/Time: 10/21/23 12:01 Chief Complaint: recurrent atrial fibrillation/scheduled DC cardioverted Narrative: this is a 73-year-old lady with a history of atrial fibrillation. She was seen initially in consultation for this in March of 2021. At that time she was having a sinus infection was seen by her PCP and found to be in atrial fibrillation. She had mildly reduced LV systolic function with an ejection fraction of 41% which was felt to be the related to her AFib. She was treated medically with metoprolol and amiodarone and anticoagulated. She was electrically cardioverted to sinus rhythm in May of 2021. The patient's primary care physician was significantly concerned about lung toxicity with amiodarone. She was on a very small dose of maintenance amiodarone but this was discontinued. In the fall she was found to be back in atrial fibrillation. She was placed on metoprolol for rate control and as stated above is no longer felt to be a candidate for amiodarone. It should be mentioned the patient is also significantly obese in terms of her shortness of breath. She also has sleep apnea and uses a CPAP machine with which she reports to be compliant. An attempt at restoring sinus rhythm electrically was recommended when I saw the patient in the office in August she is admitted to the hospital as an outpatient today for that procedure. Because of obesity anesthesia has been requested to participate in this case for airway protection. Review of Systems Constitutional: Constitutional: Reports no additional constitutional complaints Eyes: Eyes: Reports no additional eye complaints ENT: Reports system reviewed and no additional complaints, except as documented Cardiovascular: Cardiovascular: Reports no additional cardiovascular complaints Respiratory: Respiratory: Reports dyspnea on exertion Gastrointestinal: Gastrointestinal: Reports no additional gastrointestinal complaints Musculoskeletal: Musculoskeletal: Reports back pain Integumentary/Breasts: Skin/Breast: Reports system reviewed and no additional complaints, except as docu Neurologic: Comments: Alert and oriented x3 [facility] Past Medical History Medical History Atrial fibrillation Chronic GERD Cricopharyngeal hypertrophy Hyperlipidemia Hypertension Morbid obesity with BMI of 40.0-44.9, adult Osteoporosis Family History Family History Father Cancer Other Cancer Grandparent Cancer Diabetes mellitus Sibling Thyroid disorder Social History Social History Smoking packs per day: 0 Smoking cigarettes per day: 0.0 Smoking status: Never smoker Second hand tobacco smoke exposure: No Alcohol intake: never Substance use: never Substance use type: does not use Living arrangements: alone Spiritual care concerns: No Meds Home Medications and Allergies Home Medications Medication Instructions Recorded Confirmed Type apixaban 5 mg tablet (Eliquis) 5 mg PO BID 06/06/21 10/21/23 History cranberry 500 mg capsule 500 mg PO DAILY 06/06/21 10/18/23 History diphenhydramine HCl 25 mg capsule 25 mg PO HS 06/06/21 10/18/23 History (Benadryl) metoprolol tartrate 50 mg tablet 100 mg PO BID 06/06/21 10/21/23 History omeprazole 40 mg capsule,delayed 40 mg PO DAILY 06/06/21 10/18/23 History release Turmeric-Curcumen 1 tab-cap PO DAILY 07/18/23 10/18/23 History acetaminophen 500 mg tablet 1,000 mg PO BID 07/18/23 10/18/23 History (Tylenol Extra Strength) azelastine 137 mcg (0.1 %) nasal 1 spray intranasal BID 07/18/23 10/18/23 History spray aerosol fluticasone propionate 50 2 spray intranasal BID 07/18/23 10/18/23 History mcg/actuation nasal spray,suspension lljzdhqvevaa-dibhkdde-pfmytc tablet 1 tablet PO DAILY 07/18/23
--- NOTE | 2023-10-21 12:09 | WPDANESEPPF ---
Anes - Initial Pre Proc Eval Procedure: Operation Date: 10/21/23 12:00 Proposed Procedures p Electrical Cardioversion - Saul Tee MD Date/Time: 10/21/23 12:09 Surgeon: Saul Tee MD Pre Op Diagnosis: a-fib Patient Data Age: 73 Gender: F Height: 1.6 m Weight: 99.1 kg Last Vital Signs Temp 36.8 C 10/21/23 10:25 Pulse 93 10/21/23 10:25 Resp 20 10/21/23 10:25 BP 111/78 10/21/23 10:25 Pulse Ox 97 10/21/23 10:25 O2 Del Method Room Air 10/21/23 10:25 Allergies Allergy/AdvReac Type Severity Reaction Status Date / Time hydrocodone [From Vicodin] Allergy Intermediate Hives Verified 10/21/23 10:20 red dye Allergy Intermediate Hives Verified 10/21/23 10:20 Home Medications Medication Instructions Recorded Confirmed Type apixaban 5 mg tablet (Eliquis) 5 mg PO BID 06/06/21 10/21/23 History cranberry 500 mg capsule 500 mg PO DAILY 06/06/21 10/18/23 History diphenhydramine HCl 25 mg capsule 25 mg PO HS 06/06/21 10/18/23 History (Benadryl) metoprolol tartrate 50 mg tablet 100 mg PO BID 06/06/21 10/21/23 History omeprazole 40 mg capsule,delayed 40 mg PO DAILY 06/06/21 10/18/23 History release Turmeric-Curcumen 1 tab-cap PO DAILY 07/18/23 10/18/23 History acetaminophen 500 mg tablet 1,000 mg PO BID 07/18/23 10/18/23 History (Tylenol Extra Strength) azelastine 137 mcg (0.1 %) nasal 1 spray intranasal BID 07/18/23 10/18/23 History spray aerosol fluticasone propionate 50 2 spray intranasal BID 07/18/23 10/18/23 History mcg/actuation nasal spray,suspension rclrgdyftfkc-zyjsohqv-zyqsry tablet 1 tablet PO DAILY 07/18/23 10/18/23 History spironolactone 50 mg tablet 50 mg PO DAILY 07/18/23 10/18/23 History Lactobac 51-Bifidobac 1 cap PO DAILY 10/18/23 10/18/23 History 3-L.lactis-S.thermophilus 4 billion cell capsule (Daily Probiotic (10 Strains)) Laboratory Tests 10/21/23 10:24 Sodium 138 mmol/L (137-145) Potassium 4.2 mmol/L (3.4-5.0) Chloride 107 mmol/L (98-107) Carbon Dioxide 23 mmol/L (22-30) Anion Gap 8 mmol/L (8-16) BUN 18 H mg/dL (7-17) Creatinine 0.90 mg/dL (0.7-1.0) Estim Creat Clear Calc 56 ml/min Estimated GFR > 60 (59 - ) Glucose 102 mg/dL (65-110) Calcium 9.1 mg/dL (8.4-10.2) Magnesium 2.2 mg/dL (1.6-2.3) Patient hx anesthesia problems: none Family hx anesthesia problems: none Results Review: All pre-operative results and documents have been reviewed as part of the pre-operative evaluation. [facility] Past Medical History Medical History Atrial fibrillation Chronic GERD Cricopharyngeal hypertrophy Hyperlipidemia Hypertension Morbid obesity with BMI of 40.0-44.9, adult Osteoporosis Family History Family History Father Cancer Other Cancer Grandparent Cancer Diabetes mellitus Sibling Thyroid disorder Social History Social History Smoking packs per day: 0 Smoking cigarettes per day: 0.0 Smoking status: Never smoker Second hand tobacco smoke exposure: No Alcohol intake: never Substance use: never Substance use type: does not use Living arrangements: alone Spiritual care concerns: No Anes - Eval Final PreProcedure Day of Procedure 10/21/23 12:09 Patient weight: morbidly obese Heart: irregular rhythm Lungs: clear to auscultation Airway: Mallampati scale class II Neurological: alert and oriented Last oral intake: >/= 8 hours ASA classification: III Emergent: no Anesthetic plan: proceed Anesthesia type and monitoring: general GIVS and standard monitoring Results Review: All pre-operative results and documents have been reviewed as part of the pre-operative evaluation. Informed Consent: The patient's anesthetic plan and its attendant
--- NOTE | 2023-10-21 12:15 | ECG_ITS ---
Measurements Intervals [place] Rate: 56 P: 38 UT: 184 QRS: -16 QRSD: 90 T: 11 QT: 461 QTc: 448 Interpretive Statements SINUS BRADYCARDIA EARLY PRECORDIAL R/S TRANSITION CONSIDER INFERIOR INFARCT, AGE INDETERMINATE BASELINE WANDER- I, II, AVR, AVL, AVF ABNORMAL ECG COMPARED TO ECG 10/21/2023 10:20:31 SINUS BRADYCARDIA NOW PRESENT Electronically Signed On 10-21-2023 13:10:36 MIXER LEVER OPERATOR by Migel Castillo D.O.
--- NOTE | 2023-10-21 12:21 | WPDCARDPROC ---
Cardiac Cath Procedure Note Date of procedure:: 10/21/23 Performing physician:: Saul Tee MD Indication:: recurrent atrial fibrillation Brief clinical history:: this is a 73-year-old lady with atrial fibrillation who has a mildly symptomatic recurrence and in this setting an attempt at restoring sinus rhythm electrically has been recommended. Procedure Procedure performed:: DC cardioversion Sedation/Medication given:: sedation per the Anesthesia Service please see their note for details Estimated blood loss:: no blood loss Procedure note:: the patient was brought to the microbiology lab analyst postanesthesia unit in the postabsorptive state. The patient had defibrillator patches placed in AP position with the defibrillator synchronized and turned on at 200 joules output. Following sedation per the Anesthesia Service she was counter shocked with 200 joules in a synchronized fashion x1 shock which restored normal sinus rhythm in the mid 60s. Findings:: As above Conclusion:: successful uncomplicated DC cardioversion terminating AFib/restoring sinus rhythm using 200 joules x1 shock. Saul Tee MD [facility]
== END 2023-10-21 13:40 | disposition home or self-care (01) ==
PROVIDERS: PCP Internal Medicine; Visit Provider Specialist
PROC: 5A2204Z Restoration of Cardiac Rhythm, Single (ICD-10-PCS; principal; 2023-10-21 12:00)
DX: I48.91 Unspecified atrial fibrillation (principal); I10 Essential (primary) hypertension; E78.5 Hyperlipidemia, unspecified; G47.30 Sleep apnea, unspecified; K21.9 Gastro-esophageal reflux disease without esophagitis; M81.0 Age-related osteoporosis without current pathological fracture; E66.01 Morbid (severe) obesity due to excess calories; Z68.38 Body mass index [BMI] 38.0-38.9, adult; Z99.89 Dependence on other enabling machines and devices; Z79.01 Long term (current) use of anticoagulants; Z80.9 Family history of malignant neoplasm, unspecified
CPT/HCPCS: 36415; 80048; 83735; 92960; J7030

== ENCOUNTER 2023-11-18 09:07 | Outpatient (CLI) | payer MEDICARE, SELFPAY ==
[2023-11-18 09:40] LABS: Appearance Urine Clear (Clear); Basophils Absolute Auto 0.05 K/mm3 (0.00-0.10); Basophils Percent Auto 0.7 % (0.0-1.0); Bilirubin Urine Negative (Negative); Blood Urine 1+ (Negative); Color Urine Light Yellow (Yellow); Eosinophils Absolute Auto 0.14 K/mm3 (0.02-0.50); Glucose Urine UA Negative (Negative); Hematocrit 38.5 % (35.0-42.0); Hemoglobin 12.3 g/dL (11.7-13.8); Immature Granulocyte Absolute 0.03 K/mm3 (0.00-0.00); Immature Granulocyte Percent A 0.4 % (0.0-0.0); Ketones Urine Negative (Negative); Leukocyte Esterase Ur Trace (Negative); Lymphocytes Absolute Auto 1.81 K/mm3 (1.10-4.50); Lymphocytes Percent Auto 26.2 % (18.0-42.0); Mean Corpuscular HGB Conc 31.9 g/dL (32.0-36.0); Mean Corpuscular Hemoglobin 28.3 pg (27.0-31.0); Mean Corpuscular Volume 88.7 fL (78.0-102.0); Mean Platelet Volume 8.9 fl (9.2-11.8); Monocytes Absolute Auto 0.62 K/mm3 (0.10-0.90); Neutrophils Absolute Auto 4.3 K/mm3 (1.7-7.2); Neutrophils Percent Auto 61.7 % (50.0-70.0); Nitrate Urine Negative (Negative); Platelet Count Result 405 K/mm3 (150-420); Protein Urine Negative (Negative); Red Blood Count 4.34 M/mm3 (4.20-5.40); Red Cell Distribution Width 12.8 % (11.6-14.4); Urobilinogen Urine 0.2 mg/dL (0.2-1.0); White Blood Count 6.9 K/mm3 (4.8-10.8)
[2023-11-18 09:47] LABS: Add Urine Microscopic? YES; Bacteria Urine Trace /hpf; Squamous Epithelial Cell Urine Few /hpf (Few); WBC Urine 0-3 /hpf (0-3)
[2023-11-18 11:00] LABS: Alanine Aminotransferase 20 U/L (14-59); Albumin Level 3.5 g/dL (3.4-5.0); Alkaline Phosphatase 54 U/L (46-116); Anion Gap 12 mmol/L (8-16); Aspartate Amino Transferase 17 U/L (15-37); Bilirubin,Total 0.5 mg/dL (0.00-1.00); Blood Urea Nitrogen 25 mg/dL (7-18); Calcium 9.3 mg/dL (8.5-10.1); Carbon Dioxide 26 mmol/L (21-32); Chloride 102 mmol/L (98-108); Cholesterol 260 mg/dL (0-200); Creatine Kinase 64 U/L (26-192); Estimated Glomerular Filt Rate 48; Ferritin 54 ng/mL (8-252); Free T3 2.65 pg/mL (2.18-3.98); Free T4 Free Thyroxine 1.17 ng/dL (0.76-1.46); Glucose 105 mg/dL (70-99); HDL Direct 65 mg/dL (40-60); Iron 92 ug/dL (50-170); LDL Cholesterol Calculated 165 mg/dL (<130); NT Pro B Type Natriuretic Pept 753 pg/mL (0-125); Osmolality Calculated 294 mOsm/kg (285-295); Potassium 4.6 mmol/L (3.5-5.1); Sodium 140 mmol/L (136-145); Total Protein 7.2 g/dL (6.4-8.2); Triglycerides 148 mg/dL (0-150); Vitamin B12 434 pg/mL (193-986)
== END 2023-11-18 09:08 | disposition home or self-care (01) ==
LOC: CHSLAB 09:09
PROVIDERS: PCP Internal Medicine; Visit Provider Internal Medicine
DX: I10 Essential (primary) hypertension (principal); E78.2 Mixed hyperlipidemia; I48.19 Other persistent atrial fibrillation; D64.9 Anemia, unspecified; R94.6 Abnormal results of thyroid function studies; I50.9 Heart failure, unspecified
CPT/HCPCS: 36415; 80053; 80061; 81001; 82550; 82607; 82728; 83540; 83880; 84439; 84481; 85025

== ENCOUNTER 2023-11-29 08:00 | Outpatient (CLI) | payer MEDICARE, SELFPAY | END 2023-11-29 08:01 | disposition home or self-care (01) | PROVIDERS: PCP Internal Medicine; Visit Provider Internal Medicine | DX: R31.9 Hematuria, unspecified (principal) | CPT/HCPCS: 88112 ==

== ENCOUNTER 2023-12-02 07:26 | Outpatient (CLI) | payer MEDICARE, SELFPAY ==
--- NOTE | ~2023-12-02 | CT_ITS ---
EXAMINATION: CT abdomen pelvis wo/w con DATE: 12/02/2023 08:29 INDICATION: Hematuria. TECHNIQUE: Computed tomography (CT) of the abdomen and pelvis was performed without and with intraven ous contrast using a total of 130 mL Omnipaque-350 intravenous contrast with a double-bolus technique for simultaneous opacification of the renal parenchyma and renal collecting system. Automated exposu re control and iterative reconstruction technique were employed. The dose-length product was 2274.31 mGy-cm. COMPARISON: CT abdomen and pelvis 01/04/2012 FINDINGS: The visualized portions of the lung bases demonstrate mild atelectasis. No pleural effusion. There is left atrial enlargement of the heart. No pericardial effusion. The liver is normal. There are change s of cholecystectomy. Calcifications in the spleen are consistent with old granulomatous disease. The pancreas and adrenal glands are normal. There is a 5 mm cyst in right kidney. Left kidney is normal. There is no urolithiasis. The ureters are well opacified and are normal. The bladder is normal. Tuba l ligation clips are noted. There is diverticulosis of the colon without evidence of diverticulitis. There are no dilated loops of bowel. The appendix is normal. Aortic atherosclerosis is noted. There a re no pathologically enlarged lymph nodes. There is no free intraperitoneal fluid. There are changes of anterior and posterior fusion procedures at L4-L5. There is severe lumbar spondylosis and mild tho racic spondylosis. IMPRESSION: 1. No etiology for hematuria. Reviewed, dictated and finalized at location A.
--- NOTE | ~2023-12-02 | MM_ITS ---
EXAMINATION: MM screening ricardo BI w chuck HISTORY: Screening mammogram TECHNIQUE: Craniocaudal and mediolateral oblique 3-D tomosynthesis images were obtained and synthetic 2-D images were generated. CAD analysis was submitted and interpreted. COMPARISON: 11/29/2022, 11/23/2021, 10/25/2020 BREAST PARENCHYMAL COMPOSITION:Not Dense. The breasts are almost entirely fatty FINDINGS: Stable probable lymph node at the upper, outer right breast. No suspicious mass, calcificat ion, or architectural distortion are identified in either breast to suggest malignancy. There has bee n no suspicious interval change. IMPRESSION: No mammographic evidence of malignancy. Recommend routine screening mammography in one year. BI-RADS Category 2: Benign finding(s). Reviewed, dictated and finalized at location .
== END 2023-12-02 07:27 | disposition home or self-care (01) ==
PROVIDERS: PCP Internal Medicine; Visit Provider Internal Medicine
DX: Z12.31 Encounter for screening mammogram for malignant neoplasm of breast (principal); R31.29 Other microscopic hematuria
CPT/HCPCS: 74178; 77063; 77067; Q9967

== ENCOUNTER 2023-12-17 09:54 | Outpatient (CLI) | payer MEDICARE, SELFPAY ==
[2023-12-17 10:24] LABS: Basophils Absolute Auto 0.1 K/mm3 (0.0-0.1); Basophils Percent Auto 0.7 % (0.2-1.2); Eosinophils Absolute Auto 0.2 K/mm3 (0-0.3); Eosinophils Percent Auto 2.9 % (0-4.4); Hematocrit 36.4 % (37.0-47.0); Hemoglobin 11.9 g/dL (12.0-15.0); Immature Granulocyte Absolute 0.02 K/mm3 (0.00-0.031); Immature Granulocyte Percent A 0.3 % (0-0.5); Lymphocytes Absolute Auto 2.06 K/mm3 (0.9-3.2); Lymphocytes Percent Auto 29.9 % (18.3-44.2); Mean Corpuscular HGB Conc 32.7 g/dl (32-36); Mean Corpuscular Hemoglobin 29.8 pg (26-34); Mean Corpuscular Volume 91.2 fl (80-100); Mean Platelet Volume 8.9 fl (7.4-10.4); Monocytes Absolute Auto 0.7 K/mm3 (0.1-0.6); Monocytes Percent Auto 9.4 % (2.6-8.5); Neutrophils Absolute Auto 3.9 K/mm3 (1.3-6.7); Neutrophils Percent Auto 56.8 % (45.5-73.1); Platelet Count Result 343 k/mm3 (150-375); Red Blood Count 3.99 M/mm3 (4.2-5.4); Red Cell Distribution Width 12.8 % (11.5-14.5); White Blood Count 6.9 K/mm3 (4.5-10.0)
[2023-12-17 11:36] LABS: Anion Gap 6 mmol/L (4-12); Blood Urea Nitrogen 12 mg/dL (7-17); Calcium 9.9 mg/dL (8.4-10.2); Carbon Dioxide 29 mmol/L (22-30); Chloride 105 mmol/L (98-107); Estimated Glomerular Filt Rate > 60; Glucose 100 mg/dL (65-110); Iron 51 ug/dL (37-170); Potassium 4.4 mmol/L (3.4-5.0); Sodium 140 mmol/L (137-145)
[2023-12-17 11:46] LABS: Percent Iron Saturation 15 % (20-50)
[2023-12-17 13:03] LABS: Folic Acid > 20.0 ng/mL (2.76->20)
== END 2023-12-17 09:55 | disposition home or self-care (01) ==
PROVIDERS: PCP Internal Medicine; Visit Provider Internal Medicine Hematology & Oncology
DX: D64.9 Anemia, unspecified (principal)
CPT/HCPCS: 36415; 80048; 82607; 82728; 82746; 83540; 83550; 85025

== ENCOUNTER 2024-04-22 11:56 | Outpatient (CLI) | payer MEDICARE, SELFPAY ==
[2024-04-22 12:14] LABS: Hematocrit 37.5 % (37.0-47.0); Hemoglobin 12.1 g/dL (12.0-15.0); Mean Corpuscular HGB Conc 32.3 g/dl (32-36); Mean Corpuscular Hemoglobin 29.7 pg (26-34); Mean Corpuscular Volume 91.9 fl (80-100); Mean Platelet Volume 8.6 fl (7.4-10.4); Platelet Count Result 349 k/mm3 (150-375); Red Blood Count 4.08 M/mm3 (4.2-5.4); Red Cell Distribution Width 12.8 % (11.5-14.5); White Blood Count 8.2 K/mm3 (4.5-10.0)
[2024-04-22 16:51] LABS: Iron 126 ug/dL (37-170)
[2024-04-22 16:54] LABS: Anion Gap 9 mmol/L (4-12); Blood Urea Nitrogen 18 mg/dL (7-17); Calcium 9.6 mg/dL (8.4-10.2); Carbon Dioxide 29 mmol/L (22-30); Chloride 101 mmol/L (98-107); Estimated Glomerular Filt Rate > 60; Glucose 92 mg/dL (65-110); Potassium 4.5 mmol/L (3.4-5.0); Sodium 139 mmol/L (137-145)
[2024-04-22 17:02] LABS: Percent Iron Saturation 40 % (20-50)
[2024-04-22 18:12] LABS: Folic Acid > 20.0 ng/mL (2.76->20)
[2024-04-22 18:13] LABS: Vitamin B12 > 1000.0 pg/mL (239-931)
== END 2024-04-22 11:57 | disposition home or self-care (01) ==
LOC: ANHLAB 12:02
PROVIDERS: PCP Internal Medicine; Visit Provider Internal Medicine Hematology & Oncology
DX: D64.9 Anemia, unspecified (principal)
CPT/HCPCS: 36415; 80048; 82607; 82728; 82746; 83540; 83550; 85027

== ENCOUNTER 2024-05-18 08:32 | Outpatient (CLI) | payer MEDICARE, SELFPAY ==
[2024-05-18 08:47] LABS: Add Urine Microscopic? YES; Appearance Urine Clear (Clear); Basophils Absolute Auto 0.05 K/mm3 (0.00-0.10); Basophils Percent Auto 0.7 % (0.0-1.0); Bilirubin Urine Negative (Negative); Blood Urine Trace-intact (Negative); Color Urine Light Yellow (Yellow); Eosinophils Absolute Auto 0.19 K/mm3 (0.02-0.50); Eosinophils Percent Auto 2.6 % (1.0-6.0); Glucose Urine UA Negative (Negative); Hematocrit 36.4 % (35.0-42.0); Hemoglobin 11.9 g/dL (11.7-13.8); Immature Granulocyte Absolute 0.01 K/mm3 (0.00-0.00); Immature Granulocyte Percent A 0.1 % (0.0-0.0); Ketones Urine Negative (Negative); Leukocyte Esterase Ur Trace LEU/UL (Negative); Lymphocytes Absolute Auto 1.84 K/mm3 (1.10-4.50); Mean Corpuscular HGB Conc 32.7 g/dL (32-36); Mean Corpuscular Hemoglobin 29.5 pg (27.0-31.0); Mean Corpuscular Volume 90.1 fL (78.0-102.0); Monocytes Absolute Auto 0.64 K/mm3 (0.10-0.90); Monocytes Percent Auto 8.7 % (2.0-11.0); Neutrophils Absolute Auto 4.64 K/mm3 (1.70-7.20); Neutrophils Percent Auto 62.9 % (50.0-70.0); Nitrate Urine Negative (Negative); Platelet Count Result 361 K/mm3 (150-420); Protein Urine Negative (Negative); Red Blood Count 4.04 M/mm3 (4.20-5.40); Red Cell Distribution Width 12.8 % (11.6-14.4); Urobilinogen Urine 0.2 mg/dL (0.2-1.0); White Blood Count 7.4 K/mm3 (4.8-10.8)
[2024-05-18 08:59] LABS: Bacteria Urine Rare /hpf; RBC Urine 0-2 /hpf (0-2); Squamous Epithelial Cell Urine None Seen /hpf (Few); WBC Urine 0-3 /hpf (0-3)
[2024-05-18 09:36] LABS: Alanine Aminotransferase 14 U/L (14-59); Albumin Level 3.7 g/dL (3.4-5.0); Alkaline Phosphatase 64 U/L (46-116); Aspartate Amino Transferase 15 U/L (15-37); Bilirubin,Total 0.3 mg/dL (0.00-1.00); Blood Urea Nitrogen 21 mg/dL (7-18); Calcium 9.3 mg/dL (8.5-10.1); Carbon Dioxide 29 mmol/L (21-32); Cholesterol 209 mg/dL (0-200); Estimated Glomerular Filt Rate 55; Free T3 2.55 pg/mL (2.18-3.98); Free T4 Free Thyroxine 1.01 ng/dL (0.76-1.46); Glucose 92 mg/dL (70-99); HDL Direct 54 mg/dL (40-60); LDL Cholesterol Calculated 130 mg/dL (<130); Thyroid Stimulating Hormone 1.07 uIU/mL (0.36-3.74); Total Protein 7.1 g/dL (6.4-8.2); Triglycerides 123 mg/dL (0-150)
[2024-05-18 09:42] LABS: Anion Gap 7 mmol/L (4-12); Chloride 100 mmol/L (98-108); Osmolality Calculated 285 mOsm/kg (285-295); Potassium 4.3 mmol/L (3.5-5.1); Sodium 136 mmol/L (136-145)
[2024-05-19 11:28] LABS: Vitamin D 25 Hydroxy 41 ng/mL (30-100)
== END 2024-05-18 08:33 | disposition home or self-care (01) ==
LOC: CHSLAB 08:35
PROVIDERS: PCP Internal Medicine; Visit Provider Internal Medicine
DX: M81.0 Age-related osteoporosis without current pathological fracture (principal); I10 Essential (primary) hypertension; E78.2 Mixed hyperlipidemia; R31.29 Other microscopic hematuria; R94.6 Abnormal results of thyroid function studies
CPT/HCPCS: 36415; 80053; 80061; 81001; 82306; 84439; 84443; 84481; 85025

== ENCOUNTER 2024-07-22 15:33 | Outpatient (CLI) | payer MEDICARE, SELFPAY ==
--- NOTE | ~2024-07-22 | XR_ITS ---
3 VIEWS LUMBAR SPINE Ordering provider: Kellie Jeffrey, PLUG MACHINE OPERATOR History: . RT Low back pain and pelvic pain RADIATES AROUND ABD/PEL . Comparison: None. FINDINGS: VERTEBRAL BODIES:Postoperative changes at the level of L4-L5. No visible fracture or subluxation. De generative changes of the spine. Dextroscoliosis. DISK SPACES: Narrowing of the disc L1-L2, L2-L3, L4, L4-L5 and L5-S1. Multilevel facet joint disease. SOFT TISSUES: Atherosclerotic changes of the aorta. IMPRESSION: No acute osseous abnormality lumbar spine. Reviewed, dictated and finalized at location A.
--- NOTE | ~2024-07-22 | XR_ITS ---
XR abdomen/kub 1V Ordering provider: Kellie Jeffrey, TENONER OPERATOR History: . RT Low back pain and pelvic pain RADIATES AROUND ABD/PEL . Comparison: None. FINDINGS: BOWEL: Fecal material loaded in the colon. Nonobstructive bowel gas pattern. ORGANOMEGALY: None. SIGNIFICANT PATHOLOGIC CALCIFICATIONS: None. OTHER: No free air is seen under the diaphragm. Postoperative changes at the level of L4-L5. Degenera tive spine. Pubic symphysitis. IMPRESSION: NO ACUTE ABDOMINAL FINDINGS. Constipation. Reviewed, dictated and finalized at location A.
== END 2024-07-22 15:34 | disposition home or self-care (01) ==
PROVIDERS: PCP Internal Medicine; Visit Provider Nurse Practitioner Family
DX: M54.50 Low back pain, unspecified (principal); R10.2 Pelvic and perineal pain; K59.00 Constipation, unspecified
CPT/HCPCS: 72100; 74018

== ENCOUNTER 2024-07-28 12:50 | Outpatient (RCR) | payer MEDICARE, SELFPAY ==
--- NOTE | 2024-07-28 15:49 | PTOPEVAL1 ---
Assessment and note entered by Marybel Godoy DPT Evaluation Information Assessment Status Evaluation Diagnosis low back pain ICD-10 Condition Codes (PT) Pain in low back M54.50 Onset 07/22/24 Subjective Information Patient reports that on 07/22/24 she woke up with pain around the R abdomen and low back with R LE weakness. She reports she had difficulty with getting up out of a chair and had to walk with a cane. She only had to use the cane 1 day. She reports she has a history of back pain with L4-5 fusion and L 3 nerve release. At the MD she was given a steroid shot and that seemed to help pain. She reports pain is present constantly and feels like a dull tooth ache . She reports she is active with her granddaughter. Reported Pain Level Pain Score 1: Self Report Assessment PT Clinical Summary Ms. Castaneda is a 74 year old female who presents to PT with low back and R LE weakness. She demonstrates decreased R hip strength, decreased hip extension flexibility and tenderness at the R glute and piriformis. She is limited in her ability to stand for long periods of time to complete house hold tasks, stand up out of a chair and ambulate prolonged distances. She will benefit from skilled PT to address impairments and return to PLOF. Plan of Care Interventions Electrical Stimulation,Gait Training,Hot Pack/Cold Pack,Manual Therapy,Neuro Re-education,Patient/ Caregiver Educati,Therapeutic Activities, Therapeutic Exercise PT Services Indicated Yes Treatment Frequency and 2x weekly for 10 visits Duration These treatments will address the objective and functional deficits as defined above. The patient will be advanced safely and appropriately in order for the patient to progress towards his/her prior level of function. Additional exercises will be introduced and as well as a comprehensive home exercise program upon discharge, if needed, ?to ensure carryover of functional gains achieved in the clinic. This treatment plan has been reviewed and agreement upon by the patient.
--- NOTE | 2024-08-31 08:45 | PTOPDC ---
Assessment and note entered by Saul Rasmussen Evaluation Information Assessment Status Discharge Diagnosis low back pain ICD-10 Condition Codes (PT) Pain in low back M54.50 Onset 07/22/24 Subjective Information Pt. reports that her pain is less intense. She states that her interactions with her granddaughter have not been painful and she has been able to participate in most all IADL's with minimal pain. she states that pain levels remain at a 1/10 to 0/10 for the most part. She states that she will continue with exercise and is ready for discharge at this time. Reported Pain Level Pain Score 1: Self Report Assessment PT Clinical Summary While pt. continues to present with limitation on the Oswestry, subjective reports indicate little limitation. She demonstrates safe mechanics with lifting and normal l.e. strength. She has met the majority of goals established at the initial evaluation and will be discharged from our care at this time. Plan of Care PT Services Indicated No
== END 2024-08-31 08:50 | disposition home or self-care (01) ==
LOC: CHSPT 12:50
PROVIDERS: Visit Provider Nurse Practitioner Family
DX: M54.50 Low back pain, unspecified (principal)
CPT/HCPCS: 97014; 97110; 97140; 97161; G0283

== ENCOUNTER 2024-08-19 10:38 | Outpatient (CLI) | payer MEDICARE, SELFPAY ==
[2024-08-19 11:40] LABS: Anion Gap 11 mmol/L (4-12); Blood Urea Nitrogen 20 mg/dL (7-18); Calcium 9.4 mg/dL (8.5-10.1); Carbon Dioxide 26 mmol/L (21-32); Chloride 102 mmol/L (98-108); Estimated Glomerular Filt Rate 40; Glucose 107 mg/dL (70-99); Osmolality Calculated 290 mOsm/kg (285-295); Potassium 4.5 mmol/L (3.5-5.1); Sodium 139 mmol/L (136-145)
== END 2024-08-19 10:39 | disposition home or self-care (01) ==
LOC: CHSLAB 10:43
PROVIDERS: PCP Internal Medicine
DX: I48.0 Paroxysmal atrial fibrillation (principal); Z79.899 Other long term (current) drug therapy; R94.31 Abnormal electrocardiogram [ECG] [EKG]
CPT/HCPCS: 36415; 80048; 93005

== ENCOUNTER 2024-09-08 07:23 | Outpatient (CLI) | payer MEDICARE, SELFPAY ==
--- NOTE | ~2024-09-08 | CT_ITS ---
CT Scan of the Chest without Contrast: Clinical Indication: Pulmonary nodule Technique: Contiguous sections were acquired throughout the chest without intravenous contrast. Dose reduction technique was used on this scan by utilizing automated exposure control and iterative recon struction technique. The dose-length product (DLP) was 168.24 mGy-cm. COMPARISON: 09/17/2023 Findings: There is no evidence of any significant mediastinal, hilar or axillary lymphadenopathy. The mediastin al soft tissues appear normal. There is no evidence of pleural or pericardial effusion. Calcified left upper lobe granuloma present. No suspicious pulmonary nodule seen. Images through the upper abdomen reveal no abnormalities. Impression: No suspicious pulmonary nodule. Calcified left upper lobe granuloma. Reviewed, dictated and finalized at [facility]. UNITY RELATIONS REPRESENTATIVE Impression: No suspicious pulmonary nodule. Calcified left upper lobe granuloma.
== END 2024-09-08 07:24 | disposition home or self-care (01) ==
PROVIDERS: PCP Internal Medicine; Visit Provider Nurse Practitioner Family
DX: J98.4 Other disorders of lung (principal); R91.1 Solitary pulmonary nodule
CPT/HCPCS: 71250

== ENCOUNTER 2024-09-29 10:26 | Outpatient (CLI) | payer MEDICARE, SELFPAY ==
[2024-09-29 11:19] LABS: Anion Gap 9 mmol/L (4-12); Blood Urea Nitrogen 20 mg/dL (7-18); Calcium 9.6 mg/dL (8.5-10.1); Carbon Dioxide 29 mmol/L (21-32); Chloride 102 mmol/L (98-108); Estimated Glomerular Filt Rate 50; Glucose 102 mg/dL (70-99); Osmolality Calculated 292 mOsm/kg (285-295); Potassium 4.6 mmol/L (3.5-5.1); Sodium 140 mmol/L (136-145)
--- OUTSIDE RECORDS SUMMARY | 2024-10-06 05:33 | XMS_ITS | Encounter Summary ---
Author Organization [facility] Address [address] [place] [address] Phone Care Team Providers Care Blasting Contract Miner Name Role Phone Rinku Beasley MD Primary Care Provider [phone] Reason for Referral * Consult, Test & Initiate Treatment (Routine) - Closed Specialty Diagnoses / Procedures Referred By Cecelia corcoran Referred To Contact Oncology Diagnoses Iron deficiency anemia, unspecified iron deficiency anemia type Laurie Wilkins, FACILITY MAINTENANCE TECHNICIAN, RODENT EXTERMINATOR Phone: tel: fax: [facility] On[facility] [address] [place] [address] Phone: tel: fax: Referral ID Status Reason Start Date Expiration Date Visits Re quested Visits Authorized [id number] Closed 11/12/2019 1 1 Scheduling Instructions Lluvia is being referred for Chronic FELICIA. No evidence of GI blood loss-egd, colonoscopy, capsule were negative See below for Lluvia's current medications, allergies and problem list. Please contact patient for scheduling questions or concerns. CURRENT MEDS: Current Outpatient Medications: acetaminophen (TYLENOL) 325 MG Tablet, Take 650 mg by mouth daily., Disp: , Rfl: alendronate (FOSAMAX) 70 MG Tablet, Take 70 mg by mouth every 7 days., Disp: , Rfl: Ascorbic Acid (VITAMIN C PO), Take 1 Cap by mouth daily., Disp: , Rfl: B Complex Vitamins (VITAMIN B COMPLEX PO), Take 1 Cap by mouth daily., Disp: , Rfl: Cholecalciferol (VITAMIN D PO), Take 1 Cap by mouth daily., Disp: , Rfl: diphenhydrAMINE (BENADRYL ALLERGY) 25 MG Capsule, Take 25 mg by mouth nightly as needed., Disp: , Rfl: fish oil-omega-3 fatty acids 1000 MG Capsule, Take 1,000 mg by mouth daily., Disp: , Rfl: losartan-hydrochlorothiazide (HYZAAR) 50-12.5 MG Tablet, Take 1 Tab by mouth daily., Disp: , Rfl: Multiple Vitamins-Minerals (EYE VITAMINS PO), Take 1 Tab by mouth daily., Disp: , Rfl: [place]-3 Fatty Acids (FISH OIL PO), Take 1 Tab by mouth daily., Disp: , Rfl: omeprazole (PRILOSEC) 40 MG CAPSULE DELAYED RELEASE, Take 40 mg by mouth daily., Disp: , Rfl: Probiotic Product (PROBIOTIC DAILY PO), Take 1 Cap by mouth daily., Disp: , Rfl: No current facility-administered medications for this visit. ALLERGIES: -- Vicodin [Hydrocodone-Acetaminophen] -- Hives, Rash and Itching -- Red Dye -- Other (see Comments) -- Itching hives rash, PROBLEM LIST: There is no problem list on file for this patient. SPREADER Reason for Visit * Reason Comments Follow-up follow up after caps ule endoscopy Encounter Details Date Type Department Care Team (Latest Contact Info) Description 11/12/2019 2:45 PM SILK SPREADER Office Visit [facility] - Gastroenterology [facility] [address] [place] [address] Laurie Wilkins, FACILITY MAINTENANCE TECHNICIAN, RODENT EXTERMINATOR [address] [address] Iron deficiency anemia, unspecified iron deficiency anemia type (Primary Dx); Hx of adenomatous colonic polyps; Gastric polyps; Gastroesophageal reflux disease without esophagitis; Irritable bowel syndrome with diarrhea Discharge Disposition: Discharged to home or Selfcare Social History Tobacco Use Types Packs/Day Years Used Date Smoking Tobacco: Never Smokeless Tobacco: Never Tobacco Cessation:Counseling Given: No Alcohol Use Standard Drinks/Week Comments Never 0 (1 standard drink = 0.6 oz pur e alcohol) AUDIT-C Answer Date Recorded Frequency of Alcohol Consumption Never 06/01/2019 Average Number of Drinks Not on file 019 Frequency of Binge Drinking Not on file 05/2019 Comments No Sex and Gender Information Value Date Recorded Sex Assigned at Not on file Legal Sex Female 8:10 PM CDT Gender Identity Not on file Sexual Orientation Not on file documented as of this encounter Last Filed Vital Signs Vital Sign Reading Time Taken Comments Blood Pressure 128/82 11/12/2019 2:59 PM SILK SPREADER Pulse 81 11/12/2019 2:59 PM SILK SPREADER Temperature - - Respiratory Rate 16 11/12/2019 2:59 PM SILK SPREADER Oxygen Saturation 94% 11/12/2019 2:59 PM SILK SPREADER Inhaled Oxygen Concentration - - Weight 95.7 kg (211 lb) 11/12/2019 2:59 PM SILK SPREADER Height 160 cm (5' 3 ) 11/12/2019 2:59 PM SILK SPREADER Body Mass Index 37.38 11/12/2019 2:59 PM SILK SPREADER documented in this encounter Progress Notes * Laurie Wilkins, METALLURGY TEACHER, RODENT EXTERMINATOR - 11/12/2019 2:45 PM CST [facility] GASTRO[facility]OLOGY CONSULT/H&P NAME: Lluvia Castaneda DATE 1950 DATE OF CONSULT: 11/12/2019 Very pleasant patient was seen at the request of Dr. Beasley and with the patient's permission. The patient was examined and the chart was reviewed. IMPRESSION: 1. Here we have a very pleasant 69-year-old female who reports to the office for followup after an EGD, colonoscopy and capsule for chronic iron deficiency anemia. There was no evidence of GI blood loss on any of the testing. This certainly could be a hematological disorder. She does tell me though that she recently tested positive for some microscopic blood in her urine, which her primary is following. This is also in the differential. 2. GERD doing well on omeprazole 40 mg once a day. 3. History of adenomatous colon polyps. 4. History of gastric fundic gland polyps. 5. Irritable bowel syndrome with diarrhea. RECOMMENDATIONS: 1. Continue PPI as it seems to be working well with her. 2. Will put a referral in to see Hematology as she has never seen Hematology before. 3. Will follow up as needed. Did discuss fiber, probiotic and Imodium as needed for diarrhea. She would like to hold off on any type of other medications for her irritable bowel syndrome. HISTORY: Here we have a very pleasant 69-year-old female who reports to the office for followup after she had a capsule endoscopy. Patient was originally seen in June 2019 after being referred for iron deficiency anemia. Her hemoglobin 11.2, iron 37, iron sat 12, ferritin 25. She first had the EGD and there was multiple gastric polyps that were consistent with fundic gland polyps. There was no evidence of any small bowel AVMs or any gastric AVMs to explain anemia. We then followed up with a colonoscopy on August 17 and she had two polyps noted and she had some random biopsies obtained due to the diarrhea that were negative. Polyps were tubular adenomatous. Dr. Saleem then ordered a CT enterography. There did admit show some circumferential wall thickening of the proximal ascending colon, but again, he had just performed a colonoscopy and there was no evidence of any malignancies or narrowing to speak of. She had a capsule endoscopy that I did review. It was done at [facility]. There was no evidence of any small bowel AVMs malignancies or neoplasms to speak of. Most recently, on October 13, she had an iron level of 66, iron sat of 19, ferritin of 24. No CBC was obtained by her PCP. She has never seen hematology in the past. She does tell me that she has been anemic for several years and she even had a GI workup in 2014 as well. She does have family history of colon cancer in her brother diagnosed at the age of 58. She denies any abnormal weight loss, fever or chills. She does have postprandial diarrhea with no specific trigger foods. She seems to handle this on her own. She does say her GERD is well controlled on omeprazole. She denies any dysphagia or odynophagia. IJN: [id number] ALLERGIES: Allergies Allergen Reactions ??? Vicodin [Hydrocodone-Acetaminophen] Hives, Rash and Itching ??? Red Dye Other (see Comments) Itching hives rash, MEDICATIONS (Not in a hospital admission) MEDICAL HISTORY: Past Medical History Positives Diagnosis Date ??? Adenomatous colon polyp ??? Back pain ??? Diverticula, colon ??? GERD (gastroesophageal reflux disease) ??? History of claustrophobia does not lke oxygen masks ??? Hypertension ??? FELICIA (iron deficiency anemia) ??? Mitral valvular regurgitation ??? Osteoporosis SURGICAL HISTORY: Past Surgical History: Procedure Laterality Date ??? BACK SURGERY 2015 L4-5, nails holding in place ??? COLONOSCOPY ??? COLONOSCOPY N/A 08/17/2019 Procedure: COLONOSCOPY: NEGATIVE TI, RANDOM RIGHT COLON BIOPSIES, ASCENDING COLON POLYP (COLD SNARE) LOST SPECIMEN, NOT RETRIEVED, DESCENDING COLON POLYP, DIVERTICULOSIS, HEMORRHOIDS; Surgeon: Terry Green DO; Location: [facility]; Service: Gastroenterology ??? EGD ??? JOINT REPLACEMENT Bilateral 09/2016, 08/2018 knee ??? LAP,CHOLECYSTECTOMY ??? UPPER GASTROINTESTINAL ENDOSCOPY N/A 06/30/2019 Procedure: EGD-SMALL BOWEL BIOPSY, TACOS TEST, GASTRIC POLYPS; Surgeon: Terry Green DO; Location:[facility]; Service: Gastroenterology FAMILY HISTORY: Family History Problem Relation Age of Onset ??? Hypertension Mother ??? Cancer Father testicular ??? Cancer Brother colon ??? Cancer Maternal Aunt gyne ??? Cancer Maternal Uncle gyne SOCIAL HISTORY: Social History Socioeconomic History ??? Marital status: Spouse name: Not on file ??? Number of children: Not on file ??? Years of education: Not on file ??? Highest education level: Not on file Occupational History ??? Not on file Social Needs ??? Financial resource strain: Not on file ??? Food insecurity: Worry: Not on file Inability: Not on file ??? Transportation needs: Medical: Not on file Non-medical: Not on file Tobacco Use ??? Smoking status: Never Smoker ??? Smokeless tobacco: Never Used Substance and Sexual Activity ??? Alcohol use: Never Frequency: Never ??? Drug use: Never ??? Sexual activity: Not on file Lifestyle ??? Physical activity: Days per week: Not on file Minutes per session: Not on file ??? Stress: Not on file Relationships ??? Social connections: Talks on phone: Not on file Gets together: Not on file Attends mormon service: Not on file Active member of club or organization: Not on file Attends meetings of clubs or organizations: Not on file Relationship status: Not on file ??? Intimate partner violence: Fear of current or ex partner: Not on file Emotionally abused: Not on file Physically abused: Not on file Forced sexual activity: Not on file Other Topics Concern ??? Not on file Social History Narrative ??? Not on file OBSTETRICS HISTORY: OB History No obstetric history on file. REVIEW OF SYSTEMS: A 14 point review of systems was performed and was negative other than what is mentioned under the HPI. EXAMINATION BP 128/82 Pulse 81 Resp 16 Ht 5' 3 (1.6 m) Wt 211 lb (95.7 kg) SpO2 94% BMI 37.38 kg/m?? General appearance: alert, no distress, cooperative, appears stated age Head: Normocephalic, without obvious abnormality, atraumatic Eyes: no icterus Lungs: no acute distress, clear to auscultation bilaterally anterior and posterior, good effort. Heart: regular rate and rhythm, S1, S2 normal, no murmur, click, rub or gallop Abdomen: obese soft, non-tender. Bowel sounds normal. No masses, no organomegaly. Skin: Skin color, texture, turgor normal. No rashes or lesions Neurologic: Alert and oriented X 3. Mental status exam was completely normal. Dress, hygeine, and appearance are appropriate. Overall affect is normal. Rectal exam: Deferred. Thank you for much for the opportunity to participate in the care of this patient. Please do not hesitate to contact us if we can be of any further assistance. Documentation for this visit on 11/12/2019 was completed using a template. I have seen and examined the patient. Everything documented was personally performed at this visit with the necessary additions, deletions and changes made as appropriate. SPREADER SPREADER documented in this encounter Plan of Treatment Scheduled Referrals Name Type Priority Associated Diagnoses Orde r Schedule HEMATOLOGY ONCOLOGY REFERRAL Outpatient Referral Routine Iron deficiency anemia, unspecified iron deficiency anemia type Expected: 11/12/2019, Expires: 01/11/2020 documented as of this encounter Visit Diagnoses Diagnosis Iron deficiency anemia, unspecified iron deficiency anemia type- Primary Hx of adenomatous colonic polyps Personal history of colonic polyps Gastric polyps Benign neoplasm of stomach Gastroesophageal reflux disease without esophagitis Esophageal reflux Irritable bowel syndrome with diarrhea Irritable bowel syndrome documented in this encounter Care Teams Blasting Contract Miner Relationship Specialty Start Date End Date Rinku Beasley MD [address] [place], [place] [id number] PCP - General Internal Medicine 05/21/19 documented as of this encounter
--- OUTSIDE RECORDS SUMMARY | 2024-10-06 05:33 | XMS_ITS | Encounter Summary ---
Author Organization [facility] Care Team Providers Care Paper Sheeter Name Role Phone Rinku Beasley MD Primary Care Provider [phone] Encounter Details Date Type Department Care Team (Latest Contact Info) Description 11/26/2019 Travel Social History Tobacco Use Types Packs/Day Years Used Date Smoking Tobacco: Never Smokeless Tobacco: Never Alcohol Use Standard Drinks/Week Comments Never 0 [...] on file documented as of this encounter Plan of Treatment Not on file documented as of this encounter Visit Diagnoses Not on filedocumented in this encounter Care Teams Paper Sheeter Relationship Specialty Start Date End Date Rinku Beasley MD [address] [place] [address] PCP - General Internal Medicine 05/21/19 documented as of this encounter
--- OUTSIDE RECORDS SUMMARY | 2024-10-06 05:33 | XMS_ITS | Encounter Summary ---
Author Organization [facility] Address [address] [place] [address] Care Team Providers Care Cvt Tech Name Role Phone Rinku Beasley MD Primary Care Provider [phone] Reason for Visit * Reason Onset Date Comments Appointment 07/05/2022 Encounter Details Date Type Department Care Team (Late st Contact Info) Description 07/05/2022 Telephone [facility] [address], [address] [place] [address] Jw Quiroz MD [address] [place] [address] [place] [address] Appointment Social History Tobacco Use Types Packs/Day Years Used Date Smoking Tobacco: Never Smokeless Tobacco: Never Alcohol Use Standard Drinks/Week Comments Never 0 (1 standard drink = 0.6 oz pur e alcohol) Sex and Gender Information Value Date Recorded Sex Assigned at Not on file Gender Identity Not on file Sexual Orientation Not on file documented as of this encounter Miscellaneous Notes * Telephone Encounter - Chery Mobley - 07/05/2022 9:49 AM CDT Left message for patient to schedule follow up with Dr. Quiroz, Please schedule next available for dysphagia documented in this encounter Plan of Treatment Not on file documented as of this encounter Visit Diagnoses Not on filedocumented in this encounter Care Teams Cvt Tech Relationship Specialty Start Date End Date Rinku Beasley MD [address] [place] [id number] PCP - General 04/19/22 documented as of this encounter
--- OUTSIDE RECORDS SUMMARY | 2024-10-06 05:33 | XMS_ITS | Referral Summary ---
Author Organization [facility] Address [address] [place] [address] Care Team Providers Care Vehicle Assembly Inspector Name Role Phone Rinku Beasley MD Primary Care Provider [phone] Source Comments [facility],non-owned Affiliates and Associated Physician Practices is amultiple site organization consisting of ambulatory clinics and hospital sitesin [place], [place], [place] and [place]. This disclosure is being madepursuant to the Care Everywhere program and may not contain all information available regarding this patient. Last updated 18.[facility] Allergies Active Allergy Reactions Criticality Noted Date Comments Hydrocodone Itching 06/05/2022 A LOT OF ITCHING Medications * Be aware that medications may not be up to date on this document. Alwaysverify current medications with the patient. Medication Sig Dispensed Refills Start Date End Date Status acetaminophen (Tylenol) 325 MG tablet Take 500 mg by mouth once daily Active amiodarone (Cordarone) 200 MG tablet Take 200 mg by mouth 07/11/2021 Acti ve apixaban (Eliquis) 5 MG tablet Take 5 mg by mouth once daily 05/04/2021 Active Azelastine HCl 137 MCG/SPRAY SOLN 137 mcg 04/27/2022 Active B Complex Vitamins CAPS Take 1 capsule by mouth once daily Active vitamine D3 (Cholecalciferol) 250 MCG (89976 UT) capsule Take 1 Units by mouth once daily Active diphenhydrAMINE (Benadryl) 25 MG capsule Take 25 mg by mouth Activ e fluticasone propionate (Flonase) 50 MCG/ACT nasal spray INSTILL 2 SPRAY INTRANASALLY TWICE A DAY ADMINISTER INTO EACH NOSTRIL 03/21/2022 Active furosemide (Lasix) 20 MG tablet Take 20 mg by mouth 05/23/2021 Act lilly losartan (Cozaar) 50 MG tablet Take 50 mg by mouth once daily 03/22/2021 Active omeprazole (PriLOSEC) 40 MG capsule Take 40 mg by mouth Activ e Social History Tobacco Use Types Packs/Day Years Used Date Smoking Tobacco: Never Smokeless Tobacco: Never Tobacco Cessation:Counseling Given: Not Answered Alcohol Use Standard Drinks/Week Comments Never 0 (1 standard drink = 0.6 oz pur e alcohol) Sex and Gender Information Value Date Recorded Sex Assigned at Not on file Gender Identity Not on file Sexual Orientation Not on file Last Filed Vital Signs Vital Sign Reading Time Taken Comments Blood Pressure 128/86 08/07/2022 11:26 AM AGENCY SALES MANAGEMENT ASSISTANT Pulse 81 08/07/2022 11:26 AM AGENCY SALES MANAGEMENT ASSISTANT Temperature - - Respiratory Rate - - Oxygen Saturation - - Inhaled Oxygen Concentration - - Weight 106.4 kg (234 lb 9.6 oz) 022 11:26 AM AGENCY SALES MANAGEMENT ASSISTANT Height 160 cm (5' 3 ) 08/07/2022 11:26 AM AGENCY SALES MANAGEMENT ASSISTANT Body Mass Index 41.56 08/07/2022 11:26 AM AGENCY SALES MANAGEMENT ASSISTANT Plan of Treatment Not on file Care Teams Vehicle Assembly Inspector Relationship Specialty Start Date End Date Rinku Beasley MD [address] [place] [address] PCP - General 04/19/22
--- OUTSIDE RECORDS SUMMARY | 2024-10-06 05:33 | XMS_ITS | Clinical Summary ---
Author Organization [facility] Address [address] [place] [address] Care Team Providers Care Pest Control Worker Helper Name Role Phone Rinku Beasley MD Primary Care Provider [phone] Source Comments [facility],non-owned Affiliates and Associated Physician Practices is amultiple site organization consisting of ambulatory clinics and hospital sitesin [place], [place], [place] and [place]. This disclosure is being madepursuant to the Care Everywhere program and may not contain all information available regarding this patient. Last updated 18.[facility] Allergies Active Allergy Reactions Criticality Noted Date [...] daily Active vitamine D3 (Cholecalciferol) 250 MCG (11329 UT) capsule Take 1 Units by mouth [...] Comments Blood Pressure 128/86 08/07/2022 11:26 AM GOLD BURNISHER Pulse 81 08/07/2022 11:26 AM GOLD BURNISHER Temperature - - Respiratory Rate - - Oxygen Saturation - - Inhaled Oxygen Concentration - - Weight 106.4 kg (234 lb 9.6 oz) 022 11:26 AM GOLD BURNISHER Height 160 cm (5' 3 ) 08/07/2022 11:26 AM GOLD BURNISHER Body Mass Index 41.56 08/07/2022 11:26 AM GOLD BURNISHER Plan of Treatment Health Maintenance Due Date Last Done Comments BONE DENSITY TESTING 1950 COLOGUARD (AGES 45-75) - COL ON CA SCREENING 1950 COLON MONITORING 1950 COLONOSCOPY - COLON CA SCREENING 1950 CT COLONOGRAPHY - COLON CA SCREENING 1950 Colorectal Cancer Screening 1950 FIT - COLON CA SCREENING 1950 FLEX SIG - COLON CA SCREENING 1950 LIPID TESTING 1950 MAMMOGRAM 1950 MEDICARE AWV ? 12 MONTHS 1950 HEPATITIS C SCREENING 06/21/1970 DTAP/TDAP/TD VACCINES (1 - Tdap) 1971 PNEUMOCOCCAL VACCINE 50+ (1 of 1 - PCV) 2002 ZOSTER VACCINE (1 of 2) 2002 Respiratory Syncytial Virus (RSV) Vaccine Pt: or over 60 yrs (1 - Risk 60-74 years 1-dose series) 2012 SCREENING FOR DIABETES 06/05/2022 COVID-19 VACCINE ( - 2023-2 5 season) 2024 INFLUENZA VACCINE (#1) 2024 DEPRESSION SCREENING 09/23/2024 HEPATITIS B VACCINE Aged Out No longe r eligible based on patient's age to complete this topic HIB VACCINE Aged Out No longer eligi ble based on patient's age to complete this topic HPV VACCINE Aged Out No longer eligi ble based on patient's age to complete this topic MENINGOCOCCAL (Group B) VACCINE Aged Out No longer eligible based on patient's age to complete this topic MENINGOCOCCAL VACCINE Aged Out No phil errol eligible based on patient's age to complete this topic Care Teams Pest Control Worker Helper Relationship Specialty Start Date End Date Rinku Beasley MD [address] [place] [address] [facility] - General 04/19/22
--- OUTSIDE RECORDS SUMMARY | 2024-10-06 05:33 | XMS_ITS | Encounter Summary ---
Author Organization [facility] Address [address] [place] [address] Care Team Providers Care A/C Technician Name Role Phone Rinku Beasley MD Primary Care Provider [phone] Reason for Referral * Radiology Services (Routine) - Closed Specialty Diagnoses / Procedures Referred By Cecelia corcoran Referred To Contact Radiology Diagnoses Dysphagia, unspecified type Procedures FL SWALLOWING FUNCTION STUDY Jw Quiroz MD [address] [place] [address] [facility] Diagnostic Rad [address] [place] [address] Referral ID Status Reason Start Date Expiration Date Visits Re quested Visits Authorized [id number] Closed 06/05/2022 06/05/2023 1 1 Reason for Visit * Reason Comments Establish Care Throat Problem * Consult, Test & Treat (Routine) - Closed Specialty Diagnoses / Procedures Referred By Cecelia Referred To Contact ENT-Otolaryngology Diagnoses Other diseases of pharynx Dysphagia, unspecified Compa Dean MD [address] [place] [address] Jw Quiroz MD [facility] [place] [address] Referral ID Status Reason Start Date Expiration Date Visits Re quested Visits Authorized [id number] Closed 03/30/2022 03/30/2023 1 1 Encounter Details Date Type Department Care Team (Late st Contact Info) Description 06/05/2022 2:00 PM CDT Office Visit [facility] Otolaryngology [address] [place] [address] Jw Quiroz MD [address] [facility] [address] [place] [address] Dysphagia, unspecified type (Primary Dx) Social History Tobacco Use Types Packs/Day Years [...] Sign Reading Time Taken Comments Blood Pressure 144/84 06/05/2022 3:17 PM CDT Pulse 76 06/05/2022 3:17 PM CDT Temperature - - Respiratory Rate - - Oxygen Saturation - - Inhaled Oxygen Concentration - - Weight 108 kg (238 lb 3.2 oz) 06/05/2022 3:17 PM CDT Height 160 cm (5' 3 ) 06/05/2022 3:17 PM CDT Body Mass Index 42.2 06/05/2022 3:17 PM CDT documented in this encounter Patient Instructions * Patient Instructions* Melly Ward - 06/05/2022 3:24 PM CDT Thank you for visiting [facility] Otolaryngology - Head & Neck Surgery. We appreciate your confidence in allowing us to participate in your health care. You may receive a survey about your visit with us today. Making our patients happy isn???t just happy talk; it???s ourmission. Please tell us if we made the right impression on you- and how we can serve you better. Please SAVE the information below, it will assist you when it???s time for you to contact us. To MAKE - CHANGE - CANCEL an office appointment If you become ill, need to be seen before your next scheduled appointment, or need to cancel or reschedule an appointment, please call our office at [phone] Saturday through Saturday from 8:30 am to4:30 pm. You can also request a routine appointment through your [employer] account. Prescription Refills Contact your pharmacy to request all refills. The pharmacy will need to fax the request to us at . Please allow a minimum of 48-72 hours for your prescription to be completed. Your pharmacy will notify you when your prescription is ready to be picked up. Medical Emergency / After Hours Contact Information If you have a medical emergency, please call 911 or go to the nearest emergency room. For urgent medical calls which cannot wait until the office opens, please call the medical exchangeat and ask the cold water machine operator to page the ENT physician stock handler floorperson. *Caller ID blocking service will need to be turned off for your call to be returned. We also specialize in Hearing Aids, Allergy testing, swallowing disorders, voice problems, cancer diagnosis, and so much more. Visit our website at [email or web address] for information about our practice and an interactive health encyclopedia. Thank you for visiting [facility] Otolaryngology - Head & Neck Surgery. We appreciate your confidence in allowing us to participate in your health care. You may receive a survey about your visit with us today. Making our patients happy isn???t just happy talk; it???s ourmission. Please tell us if we made the right impression on you- and how we can serve you better. Please SAVE the information below, it will assist you when it???s time for you to contact us. To MAKE - CHANGE - CANCEL an office appointment If you become ill, need to be seen before your next scheduled appointment, or need to cancel or reschedule an appointment, please call our office at [phone] Saturday through Saturday from 8:00 am to4:30 pm. You can also request a routine appointment through your [employer] account. Prescription Refills Contact your pharmacy to request all refills. The pharmacy will need to fax the request to us at . Please allow a minimum of 48-72 hours for your prescription to be completed. Medical Emergency / After Hours Contact Information If you have a medical emergency, please call 911 or go to the nearest emergency room. For urgent medical calls, which cannot wait until the office opens, please call the medical exchange at and ask the cold water machine operator to page the ENT physician stock handler floorperson. *Caller ID blocking service will need to be turned off for your call to be returned. We also specialize in Hearing Aids, Allergy testing, swallowing disorders, voice problems, cancer diagnosis, and so much more. Visit our website at [email or web address] for information about our practice and an interactive health encyclopedia. Thank you for visiting [facility] Otolaryngology - Head & Neck Surgery. We appreciate your confidence in allowing us to participate in your health care. You may receive a survey about your visit with us today. Making our patients happy isn???t just happy talk; it???s ourmission. Please tell us if we made the right impression on you- and how we can serve you better. Please SAVE the information below, it will assist you when it???s time for you to contact us. To MAKE - CHANGE - CANCEL an office appointment If you become ill, need to be seen before your next scheduled appointment, or need to cancel or reschedule an appointment, please call our office at [phone] Saturday through Saturday from 8:00 am to4:30 pm. You can also request a routine appointment through your [employer] account. Prescription Refills Contact your pharmacy to request all refills. The pharmacy will need to fax the request to us at . Please allow a minimum of 48-72 hours for your prescription to be completed. Medical Emergency / After Hours Contact Information If you have a medical emergency, please call 911 or go to the nearest emergency room. For urgent medical calls, which cannot wait until the office opens, please call the medical exchange at and ask the cold water machine operator to page the ENT physician stock handler floorperson. *Caller ID blocking service will need to be turned off for your call to be returned. We also specialize in Hearing Aids, Allergy testing, swallowing disorders, voice problems, cancer diagnosis, and so much more. Visit our website at [email or web address] for information about our practice and an interactive health encyclopedia. documented in this encounter Progress Notes * Jw Quiroz MD - 06/05/2022 3:39 PM CDT History of Present Illness: Lluvia is a 71 year old female who presents for evaluation of trouble swallowing No issues prior to about a year or so ago Water fine Chew and chew and then it gets start Feel like it is in her throat Have to use liquids Even chokes at times Already uses small bites Tucks chin Uses water with every meal No neurologic problems Weight pattern changer last uear up 30#, found out it was afib (had cardioversion - last April) More sedentary, higher calorie food Told primary care referred to get MBS and then Dr. Dean who referred here EGD 04/05/2022 do not have a report No voice change No breathing problems Past Medical History: No past medical history on file. Past Surgical History: Procedure Laterality Date ??? Knee Replacement Left 2015 ??? Knee Replacement Right 2016 ??? LUMBAR SPINE FUSION 2019 L 3-4 ??? LUMBAR SPINE FUSION 2018 L 4-5 No family history on file. Current Outpatient Medications Medication Sig Dispense Refill ??? acetaminophen (Tylenol) 325 MG tablet Take 500 mg by mouth once daily ??? amiodarone (Cordarone) 200 MG tablet Take 200 mg by mouth ??? apixaban (Eliquis) 5 MG tablet Take 5 mg by mouth once daily ??? Azelastine HCl 137 MCG/SPRAY SOLN 137 mcg ??? B Complex Vitamins CAPS Take 1 capsule by mouth once daily ??? diphenhydrAMINE (Benadryl) 25 MG capsule Take 25 mg by mouth ??? fluticasone propionate (Flonase) 50 MCG/ACT nasal spray INSTILL 2 SPRAY INTRANASALLY TWICE A DAY ADMINISTER INTO EACH NOSTRIL ??? furosemide (Lasix) 20 MG tablet Take 20 mg by mouth ??? losartan (Cozaar) 50 MG tablet Take 50 mg by mouth once daily ??? omeprazole (PriLOSEC) 40 MG capsule Take 40 mg by mouth ??? vitamine D3 (Cholecalciferol) 250 MCG (38279 UT) capsule Take 1 Units by mouth once daily No current facility-administered medications for this visit. Allergies Allergen Reactions ??? Hydrocodone Itching A LOT OF ITCHING Social History Tobacco Use ??? Smoking status: Never Smoker ??? Smokeless tobacco: Never Used Vaping Use ??? Vaping Use: Never used Substance Use Topics ??? Alcohol use: Never ??? Drug use: Never Review of Systems: An 14 point review of systems was completed and negative except for: Please see the HPI Physical Examination: BP 144/84 Pulse 76 Ht 5' 3 (1.6 m) Wt 238 lb 3.2 oz (108 kg) Body mass index is 42.2 kg/m??. Constitutional: in no apparent distress and well developed and well nourished Head and Face: Normocephalic, without obvious abnormality; facial strength intact and symmetric, nontender Eyes: conjunctivae/corneas clear. PERRL Ears: Pinnae: normal bilaterally External canals: clear without exudates or blood Tympanic membrane and Middle ears: Right ear: clear, TM with normal appearing landmarks, no fluid Left ear: clear, TM with normal appearing landmarks, no fluid Nasal: External: nose shows no deformity, asymmetry, or inflammation Septum: Good alignment Turbinates: Albert, non-edematous, without discharge Mucosa: Albert, healthy appearing Oral Cavity: No perioral or gingival cyanosis or lesions. Tongue and floor of mouth are normal in appearance Throat: Oropharynx with healthy appearing musosa, no visible drainage, no lesions, uvula midline, soft palate with symmetric mobility Neck: no asymmetry, masses, or scars, supple without significant adenopathy, trachea midline, no thyroid enlargement or irregularity palpated Neuro: non focal, mental status and speech normal, alert and oriented Respiration: unlabored breathing, no audible wheezes or stridor Skin: Skin color, texture normal. No rashes or lesions Procedure Note Endoscopy Type: Laryngoscopy without stroboscopy 50777 Endoscope: Flexible 4mm Scope Anesthesia: Lidocaine 2% and Neosynephrine 1/2% (nasal) Procedure Details: The patient was sitting upright in a chair with the head in a slightly anterior sniffing position. The topical anesthesia was administered and then adequate time was allowed for an anesthetic effect.The endoscope was passed thru the nasal cavity with the tongue retracted anteriorly. The tip of theendoscope was positioned in the oropharynx which allowed a complete view of the base of tongue, vallecula, pyriform recesses, epiglottis, bilateral true and false vocal folds, the interarytenoid and post cricoid region, and the immediate subglottis. Findings: Nasal cavity clear without secretions, nasopharynx open, soft palate elevates symmetrically, base of tongue is normal, piriform sinuses clear without secretions, bilateral vocal cord mobility is normal. No evidence of significant supraglottic or posterior glottic edema or erythema. Normalstraight free edge to the vocal fold. Condition: Stable. Patient tolerated procedure well. Complications: None I was present for the entirety of the procedure. MODIFIED ESOPHAGRAM 02/27/22 [facility] HISTORY: Dysphagia. TECHNIQUE: Modified barium esophagram was performed by speech pathologist under radiologist fluoroscopic guidance. This was recorded on tape. The exam was reviewed on 02/27/2022 10:13 CDT. The DAP for this procedure was 2.1 Gycm2. Fluoroscopy time is 2.9 minutes. FINDINGS: Lateral projection of the cervical spine demonstrates small ventral osteophytes at C5- 6.. There is reduced pharyngeal squeeze with vallecular and piriform sinus residue. No evidence for laryngeal penetration or aspiration. There is delayed passage of contrast bolus distal to the cricopharyngeus which is persistently mildly narrowed. IMPRESSION: 1: Reduced pharyngeal squeeze with follicular and piriform sinus residue. Mildly delayed passage of bolus past the cricopharyngeus muscle. No evidence for penetration or aspiration. 2: Please refer to speech pathologist report for additional detail. Assessment and Plan: Lluvia is a 71 year old female 71-year-old with a year-long history of difficulty with swallowing. She has no problems with liquids. But foods tend to get stuck when she starts to swallow. She has used multiple rounds of fluids toget these consistencies to go down. She had a modified barium swallow of which the results are not specific as to what may be the abnormality. There is subsequently a EGD performed which we do not have the results of this time but the patient reports that the physician said it was normal. Because of her ongoing symptoms we are going to recommend that she undergo a modified barium swallow here at [facility] with Maty Leary and pending the results of this test we are going to make some treatment recommendations. Of note the examination of her upper aerodigestive tract and flexible exam laryngoscopy did not identify any abnormality there is no pooling in the piriform vocal cords move normal. There is a large base of tongue it is possible that the epiglottis does not invert. documented in this encounter Procedure Notes * Jw Quiroz MD - 06/06/2022 5:28 PM CDTAssociated Order(s): PROC ENDOSCOPY-LARYNX Procedure(s): ID LARYNGOSCOPY,FLEX FIBER,DIAGNOSTIC Pre-Procedure Diagnose(s): Dysphagia, unspecified type Procedure Note Endoscopy Type: Laryngoscopy without stroboscopy 87123 Endoscope: Flexible 4mm Scope Anesthesia: Lidocaine 2% and Neosynephrine 1/2% (nasal) Procedure Details: The patient was sitting upright in a chair with the head in a slightly anterior sniffing position. The topical anesthesia was administered and then adequate time was allowed for an anesthetic effect.The endoscope was passed thru the nasal cavity with the tongue retracted anteriorly. The tip of theendoscope was positioned in the oropharynx which allowed a complete view of the base of tongue, vallecula, pyriform recesses, epiglottis, bilateral true and false vocal folds, the interarytenoid and post cricoid region, and the immediate subglottis. Findings: Nasal cavity clear without secretions, nasopharynx open, soft palate elevates symmetrically, base of tongue is normal, piriform sinuses clear without secretions, bilateral vocal cord mobility is normal. No evidence of significant supraglottic or posterior glottic edema or erythema. Normalstraight free edge to the vocal fold. Condition: Stable. Patient tolerated procedure well. Complications: None I was present for the entirety of the procedure. documented in this encounter Plan of Treatment Not on file documented as of this encounter Procedures Procedure Name Priority Date/Time Associated Diagnosis Comments ID LARYNGOSCOPY,FLEX FIBER,DIAGNOSTIC Routine 06/06/2022 5:28 PM CDT Dysphagia, unspecified type documented in this encounter Results * FL SWALLOWING FUNCTION STUDY (07/02/2022 1:40 PM CDT) Anatomical Region Laterality Modality Chest Radiographic Anni ging 07/02/2022 1:48 PM CDT Narrative 07/02/2022 4:32 PM CDT PROCEDURE: ??FL SWALLOWING FUNCTION STUDY, DATE/TIME OF EXAM: ??07/02/2022 12:44 PM, LOCATION ??[facility] INDICATION: R13.10: Dysphagia, unspecified type ADDITIONAL CLINICAL INFORMATION: Ordering Provider Reason For Exam: COMPARISON: None. FLUOROSCOPY DOSE: ??15.7 Reference air kerma (ka,r). FLUOROSCOPY TIME: ??2.8 minutes; Number of images: ??[id number] TECHNIQUE: Modified barium swallow fluoroscopy performed in conjunction with speech pathology staff. The speech pathologist administered varying thickness barium liquids and solids under direct Cine fluoroscopy. FINDINGS/IMPRESSION: Fluoroscopic assistance was provided for a modified barium swallow test performed by Speech Therapy. Please see the Speech Therapy report for details. Report dictated by Alex Elliott MD, MD (cardiac cath lab radiology technologist). Madie Chen MD have personally reviewed and interpreted this examination/study. > Interpreting Provider: Madie Parker MD on 07/02/2022 4:32 PM Procedure Note Aubrie Parker MD - 07/02/2022 PROCEDURE: FL SWALLOWING FUNCTION STUDY, DATE/TIME OF EXAM: 07/02/2022 12:44 PM, LOCATION [facility] INDICATION: R13.10: Dysphagia, unspecified type ADDITIONAL CLINICAL INFORMATION: Ordering Provider Reason For Exam: COMPARISON: None. FLUOROSCOPY DOSE: 15.7 Reference air kerma (ka,r). FLUOROSCOPY TIME: 2.8 minutes; Number of images: [id number] TECHNIQUE: Modified barium swallow fluoroscopy performed in conjunction with speech pathology staff. The speech pathologist administered varying thickness barium liquids and solids under direct Cine fluoroscopy. FINDINGS/IMPRESSION: Fluoroscopic assistance was provided for a modified barium swallow test performed by Speech Therapy. Please see the Speech Therapy report for details. Report dictated by Alex Elliott MD, MD (cardiac cath lab radiology technologist). I, Margarita. Ole Parker MD have personally reviewed and interpreted this examination/study. > Interpreting Provider: Madie Parker MD on 07/02/2022 4:32 PM Jw Quiroz MD FLUOROSCOPY ORDERABL ES * ID LARYNGOSCOPY,FLEX FIBER,DIAGNOSTIC (06/06/2022 5:28 PM CDT) Narrative Jw Quiroz MD - 06/06/2022 5:28 PM CDT Jw Quiroz MD ? 06/06/2022 ??5:29 PM Procedure Note Endoscopy Type: ??Laryngoscopy without stroboscopy 98195 Endoscope: Flexible 4mm Scope Anesthesia: Lidocaine 2% and Neosynephrine 1/2% (nasal) Procedure Details: The patient was sitting upright in a chair with the head in a slightly anterior sniffing position. The topical anesthesia was administered and then adequate time was allowed ??for an anesthetic effect. The endoscope was passed thru the nasal cavity with the tongue retracted anteriorly. The tip of the endoscope was positioned in the oropharynx which allowed a complete view of the base of tongue, vallecula, pyriform recesses, epiglottis, bilateral true and false vocal folds, the interarytenoid and post cricoid region, and the immediate subglottis. Findings: Nasal cavity clear without secretions, nasopharynx open, soft palate elevates symmetrically, base of tongue is normal, piriform sinuses clear without secretions, bilateral vocal cord mobility is normal. ??No evidence of significant supraglottic or posterior glottic edema or erythema. ??Normal straight free edge to the vocal fold. Condition: Stable. ??Patient tolerated procedure well. Complications: None I was present for the entirety of the procedure. Jw Quiroz MD PROCEDURE/MINOR SURG ICAL ORDERABLES documented in this encounter Visit Diagnoses Diagnosis Dysphagia, unspecified type- Primary Dysphagia, unspecified type documented in this encounter Care Teams A/C Technician Relationship Specialty Start Date End Date Rinku Beasley MD [address] [place] [address] PCP - General 04/19/22 documented as of this encounter
--- OUTSIDE RECORDS SUMMARY | 2024-10-06 05:33 | XMS_ITS | Patient Health Summary ---
Author Organization [facility] Address [address] [place] [address] Care Team Providers Care Slab Polisher Name Role Phone Rinku Beasley MD Primary Care Provider [phone] Note from [facility],non-owned Affiliates and Associated Physician Practices is amultiple site organization consisting of ambulatory clinics and hospital sitesin [place], [place], [place] and [place]. This disclosure is being madepursuant to the Care Everywhere program and may not contain all information available regarding this patient. Last updated 18.[facility] Allergies * Hydrocodone(Itching) Medications * Be aware that medications may not be up to date on this document. Alwaysverify current medications with the patient. * acetaminophen (Tylenol) 325 MG tablet Take 500 mg by mouth once daily * amiodarone (Cordarone) 200 MG tablet(Started 07/11/2021) Take 200 mg by mouth * apixaban (Eliquis) 5 MG tablet(Started 05/04/2021) Take 5 mg by mouth once daily * Azelastine HCl 137 MCG/SPRAY SOLN(Started 04/27/2022) 137 mcg * B Complex Vitamins CAPS Take 1 capsule by mouth once daily * vitamine D3 (Cholecalciferol) 250 MCG (71399 UT) capsule Take 1 Units by mouth once daily * diphenhydrAMINE (Benadryl) 25 MG capsule Take 25 mg by mouth * fluticasone propionate (Flonase) 50 MCG/ACT nasal spray(Started 03/21/2022) INSTILL 2 SPRAY INTRANASALLY TWICE A DAY ADMINISTER INTO EACH NOSTRIL * furosemide (Lasix) 20 MG tablet(Started 05/23/2021) Take 20 mg by mouth * losartan (Cozaar) 50 MG tablet(Started 03/22/2021) Take 50 mg by mouth once daily * omeprazole (PriLOSEC) 40 MG capsule Take 40 mg by mouth Social History Tobacco Use Types Packs/Day Years [...] Comments Blood Pressure 128/86 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 Pulse 81 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 Temperature - - Respiratory Rate - - Oxygen Saturation - - Inhaled Oxygen Concentration - - Weight 106.4 kg (234 lb 9.6 oz) 022 11:26 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 MAK[employer] Height 160 cm (5' 3 ) 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 Body Mass Index 41.56 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?07/02/2022 12:44 PM, LOCATION ??[facility] INDICATION: R13.10: Dysphagia, unspecified type ADDITIONAL [...] Report dictated by Alex Elliott MD, MD (residential sales associate). Madie Chen MD have personally reviewed and interpreted this examination/study. > Interpreting Provider: Madie Parker MD on 07/02/2022 4:32 PM Procedure Note Aubrie Parker MD - 07/02/2022 PROCEDURE: FL SWALLOWING FUNCTION STUDY, DATE/TIME OF EXAM: 07/02/2022 12:44 PM, LOCATION [facility] INDICATION: R13.10: Dysphagia, unspecified type ADDITIONAL [...] Report dictated by Alex Elliott MD, MD (residential sales associate). Madie Chen MD have personally reviewed and interpreted this examination/study. > Interpreting Provider: Madie Parker MD on 07/02/2022 4:32 PM Jw Quiroz MD FLUOROSCOPY ORDERABL ES * SC LARYNGOSCOPY,FLEX FIBER,DIAGNOSTIC (06/06/2022 5:28 PM CDT) Narrative Jw Quiroz MD - 06/06/2022 5:28 PM CDT Jw Quiroz MD ? 06/06/2022 ??5:29 PM Procedure Note Endoscopy Type: ??Laryngoscopy without stroboscopy 72829 Endoscope: Flexible 4mm Scope Anesthesia: Lidocaine 2% [...] Jw Quiroz MD PROCEDURE/MINOR SURG ICAL ORDERABLES * (ABNORMAL) CULTURE WOUND+GRAM STAIN (01/22/2014 5:00 PM CDT) Only the most recent of2 resultswithin the time period is included. Culture Wound STAPHYLOCOCCUS AUREUS(A) [facility] Comment:Heavy Growth Staphyl ococcus Aureus Wound 01/22/2014 5:00 PM CDT 01/22/2014 9:54 PM CDT Narrative [facility] - 01/24/2014 12:53 PM CDT DavidSpecimen#[id number] David Loc/Rm/Bed: EXPCARE G// Source: lt axilla Organism Antibiotic Method Susceptibility Staphylococcus aureus Clindamycin SUSCEPTIBILITY 0.25: Sensitive Staphylococcus aureus Doxycycline SUSCEPTIBILITY <=0.5: Sensitive Staphylococcus aureus Erythromycin SUSCEPTIBILITY >=8: Resistant Staphylococcus aureus Gentamicin SUSCEPTIBILITY <=0.5: Sensitive Staphylococcus aureus Levofloxacin SUSCEPTIBILITY 4: Resistant Staphylococcus aureus Oxacillin SUSCEPTIBILITY 0.5: Sensitive Comment: Oxacillin Susceptibility predicts susceptibility to Beta-Lactam/Beta-Lactamase Inhibitor combinations, Cephalosporins, and Carbapenems. Oxacillin Resistance predicts resistance to all Penicillins, Beta-Lactam/Beta-Lactamase Inhibitor combinations, Cephalosporins, and Carbapenems with the exception of Cephalosporins with Anti-MRSA activity. Staphylococcus aureus Trimethoprim-sulfamethoxazole DOWNS SCEPTIBILITY <=10: Sensitive Staphylococcus aureus Vancomycin SUSCEPTIBILITY 1: Sensitive Historical Provider LAB - MICROBIOLOG Y ORDERABLES [address] [phone] * GRAM STAIN SMEAR (01/22/2014 5:00 PM CDT) Gram Stain Many Gram positive cocci in pairs and clusters [facility] Wound 01/22/2014 5:00 PM CDT 01/22/2014 9:54 PM CDT Narrative [facility] - 01/23/2014 12:13 AM CDT DavidSpecimen#[id number] David Loc/Rm/Bed: EXPCARE G// Source: lt axilla Gram Stains are routinely screened for the presence of Polymorphonuclear Cells. Historical Provider LAB - MICROBIOLOG Y ORDERABLES [address] [phone] Care Teams Slab Polisher Relationship Specialty Start Date End Date Rinku Beasley MD [address] [place] [phone] PCP - General 04/19/22
--- OUTSIDE RECORDS SUMMARY | 2024-10-06 05:33 | XMS_ITS | Encounter Summary ---
Author Organization [facility] Address [address] [place] [address]. [place] [address] [place] [address] Care Team Providers Care Vending Machine Servicer Name Role Phone Unavailable Primary Care Provider Unavailabl e Reason for Visit * Reason Comments Echo (SCAN) Encounter Details Date Type Department Care Team (Late st Contact Info) Description [facility]/18/2021 [facility] [address] [place] [address] Scanned, Documents Echo (SCAN) Social History Tobacco Use Types Packs/Day Years Used Date Smoking Tobacco: Never Assessed Comments Unknown Sex and Gender Information Value Date Recorded Sex Assigned at Not on file Legal Sex Female 11:53 AM CDT Gender Identity Not on file Sexual Orientation Not on file documented as of this encounter Plan of Treatment Not on file documented as of this encounter Procedures Procedure Name Priority Date/Time Associated Diagnosis Comments ECHO GENERIC (SCAN ORDER) Routine 05/18/2021 documented in this encounter Results * ECHO (05/18/2021) Anatomical Region Laterality Modality Other us Documents Scanned SCANNING Final Result documented in this encounter Visit Diagnoses Not on filedocumented in this encounter
--- OUTSIDE RECORDS SUMMARY | 2024-10-06 05:33 | XMS_ITS | Encounter Summary ---
Author Organization [facility] Address [address] [place] [address] Care Team Providers Care Aviation Engineer Name Role Phone Rinku Beasley MD Primary Care Provider [phone] Reason for Referral * Radiology Services (Routine) - Closed Specialty Diagnoses / Procedures Referred By Contyann t Referred To Contact Radiology Diagnoses Dysphagia, unspecified type Procedures FL SWALLOWING FUNCTION STUDY Jw Quiroz MD [address] [place] [address] [place] [address] [facility] [address] [place] [address] Referral ID Status Reason Start Date Expiration Date Visits Re quested Visits Authorized [id number] Closed 06/05/2022 06/05/2023 1 1 Reason for Visit * Radiology Services (Routine) - Closed Specialty Diagnoses / Procedures Referred By Contac t Referred To Contact Radiology Diagnoses Dysphagia, unspecified type Procedures FL SWALLOWING FUNCTION STUDY Jw Quiroz MD [address] [place] [address] [facility] [address] [place] [address] Referral ID Status Reason Start Date Expiration Date Visits Re quested Visits Authorized [id number] Closed 06/05/2022 06/05/2023 1 1 Encounter Details Date Type Department Care Team (Latest Contact Info) Description 07/02/2022 12:44 PM CDT - 07/02/2022 11:59 PM CDT Hospital Encounter [facility] [address] [place] [phone] Jw Quiroz MD [address] [facility] [address] [place] [address] Discharge Disposition: Home or Self Care Social History Tobacco Use Types Packs/Day Years Used Date Smoking Tobacco: Never Smokeless Tobacco: Never Alcohol Use Standard Drinks/Week Comments Never 0 (1 standard drink = 0.6 oz pur e alcohol) Sex and Gender Information Value Date Recorded Sex Assigned at Not on file Gender Identity Not on file Sexual Orientation Not on file documented as of this encounter Medications at Time of Discharge Medication Sig Dispensed Refills Start Date End Date acetaminophen (Tylenol) 325 MG tablet Take 500 mg by mouth once daily amiodarone (Cordarone) 200 MG tablet Take 200 mg by mouth 07/11/2021 apixaban (Eliquis) 5 MG tablet Take 5 mg by mouth once daily 05/04/2021 Azelastine HCl 137 MCG/SPRAY SOLN 137 mcg 04/27/2022 B Complex Vitamins CAPS Take 1 capsule by mouth once daily diphenhydrAMINE (Benadryl) 25 MG capsule Take 25 mg by mouth fluticasone propionate (Flonase) 50 MCG/ACT nasal spray INSTILL 2 SPRAY INTRANASALLY TWICE A DAY ADMINISTER INTO EACH NOSTRIL 03/21/2022 furosemide (Lasix) 20 MG tablet Take 20 mg by mouth 05/23/2021 losartan (Cozaar) 50 MG tablet Take 50 mg by mouth once daily 03/22/2021 omeprazole (PriLOSEC) 40 MG capsule Take 40 mg by mouth vitamine D3 (Cholecalciferol) 250 MCG (26451 UT) capsule Take 1 Units by mouth once daily documented as of this encounter Plan of Treatment Not on file documented as of this encounter Procedures Procedure Name Priority Date/Time Associated Diagnosis Comments FL SWALLOWING FUNCTION STUDY Routine 07/02/2022 1:40 PM CDT Dysphagia, unspecified type documented in this encounter Results * FL SWALLOWING FUNCTION STUDY (07/02/2022 1:40 PM CDT) Anatomical Region Laterality Modality Chest Radiographic Anni ging 07/02/2022 1:48 PM CDT Narrative 07/02/2022 4:32 PM CDT PROCEDURE: ??FL SWALLOWING FUNCTION STUDY, DATE/TIME OF EXAM: ??07/02/2022 12:44 PM, LOCATION ??[facility] INDICATION: R13.10: Dysphagia, unspecified type ADDITIONAL CLINICAL [...] Report dictated by Alex Elliott MD, MD (radiology aide). Madie Chen MD have personally reviewed and interpreted this examination/study. > Interpreting Provider: Madie Parker MD on 07/02/2022 4:32 PM Procedure Note Aubrie Parker MD - 07/02/2022 PROCEDURE: FL SWALLOWING FUNCTION STUDY, DATE/TIME OF EXAM: 07/02/2022 12:44 PM, LOCATION [facility] INDICATION: R13.10: Dysphagia, unspecified type ADDITIONAL CLINICAL [...] Report dictated by Alex Elliott MD, MD (radiology aide). IMadie MD have personally reviewed and interpreted this examination/study. > Interpreting Provider: Madie Parker MD on 07/02/2022 4:32 PM Jw Quiroz MD FLUOROSCOPY ORDERABL ES documented in this encounter Visit Diagnoses Diagnosis Dysphagia, unspecified type documented in this encounter Administered Medications Inactive Administered Medications - up to 3 most recent administrations Medication Order MAR Action Action Date Dose Rate Site barium (E-Z-Disk) tablet 700 mg 700 mg, Oral, ONCE, 1 dose, On Sat07/02/22 at 1415 $ Given - Contrast 07/02/2022 1:20 PM CDT 700 mg barium (Liquid E-Z-Paque) 60 % suspension Oral, ONCE, 1 dose, On Sat07/02/22 at 1415, . WASTE DISPOSAL INSTRUCTIONS: Black Bin Disposal required. $ Given - Contrast 07/02/2022 1:20 PM CDT 20 mL barium (Varibar Thin) 40 % liquid SUSR 80 mL 80 mL, Oral, ONCE, 1 dose, On Sat07/02/22 at 1415 $ Given - Contrast 07/02/2022 1:20 PM CDT 80 mL barium (Varibar) 40 % paste PSTE Oral, ONCE, 1 dose, On Sat07/02/22 at 1415 $ Given - Contrast 07/02/2022 1:20 PM CDT 5 mL documented in this encounter Care Teams Aviation Engineer Relationship Specialty Start Date End Date Rinku Beasley MD [address] [place] [phone] PCP - General 04/19/22 documented as of this encounter
--- OUTSIDE RECORDS SUMMARY | 2024-10-06 05:33 | XMS_ITS | Encounter Summary ---
Author Organization [facility] Address [address] [place] [address] Phone Care Team Providers Care Vice Chair Name Role Phone Rinku Beasley MD Primary Care Provider [phone] Reason for Visit * Reason Comments Referral iron deficiency * Consult, Test & Initiate Treatment (Routine) - Closed Specialty Diagnoses / Procedures Referred By Contyann t Referred To Contact Oncology Diagnoses Iron deficiency anemia, unspecified iron deficiency anemia type Laurie Wilkins APRN, DONNA Phone: tel: fax: [facility] Medical Oncology [address] [place] [address] Phone: tel: fax: Referral ID Status Reason Start Date Expiration Date Visits Re quested Visits Authorized [id number] Closed 11/12/2019 1 1 Encounter Details Date Type Department Care Team (Late st Contact Info) Description 11/26/2019 9:00 AM SURGICAL SUPPLIES STERILIZER Office Visit [facility] [address] [place] [address] Nayla Read MD [address] [place] [address] Iron deficiency anemia, unspecified iron deficiency anemia type Discharge Disposition: Discharged to home or Selfcare [...] Sign Reading Time Taken Comments Blood Pressure 158/82 11/26/2019 10:00 AM SURGICAL SUPPLIES STERILIZER Pulse 74 11/26/2019 10:00 AM SURGICAL SUPPLIES STERILIZER Temperature 36.7 ??C (98 ??F) 11/26/2019 10: 00 AM SURGICAL SUPPLIES STERILIZER Respiratory Rate 20 11/26/2019 10:0 0 AM SURGICAL SUPPLIES STERILIZER Oxygen Saturation 100% 11/26/2019 10: 00 AM SURGICAL SUPPLIES STERILIZER Inhaled Oxygen Concentration - - Weight 98.3 kg (216 lb 12.8 oz) 020 10:00 AM SURGICAL SUPPLIES STERILIZER Height 161.3 cm (5' 3.5 ) 11/26/2019 10 :00 AM SURGICAL SUPPLIES STERILIZER Body Mass Index 37.8 11/26/2019 10:00 AM SURGICAL SUPPLIES STERILIZER documented in this encounter H&P Notes * Nayla Read MD - 11/26/2019 9:00 AM CST OUTPATIENT HEMATOLOGY-ONCOLOGY CONSULT/H&P DATE OF CONSULT: 11/26/2019 REFERRING PHYSICIAN: Laurie Wilkins, SPREADER OPERATOR AUTOMATIC, C* REASON FOR CONSULTATION: Iron deficiency with anemia Present Illness Lluvia Castaneda is a 69 y.o. female seen today for hematologic evaluation for deficiency anemia. Patient fatigue and exertional dyspnea. She denies bleeding. She completed GI evaluation with EGD, colonoscopy and capsule colonoscopy last year. She has known history of GERD and takes PPI chronically. Patient reports poor tolerance to oral iron that made her sick in stomach. She has taken oral iron to3 times per week for several months. Last lab test from July of 2019 demonstrated iron deficiency with anemia. No recent lab available for review. Patient has decreased appetite. Denies nausea, vomiting or dysphagia. Denies abdominal pain. Denies bleeding. No other complaint today. Performance status = ECOG 2 Past Medical History Positives Diagnosis Date ??? Adenomatous colon polyp ??? Arthritis ??? Back pain ??? Diverticula, colon ??? GERD (gastroesophageal reflux disease) ??? History of claustrophobia does not lke oxygen masks ??? Hypertension ??? IBS (irritable bowel syndrome) ??? FELICIA (iron deficiency anemia) ??? Mitral valvular regurgitation ??? Osteoporosis Past Surgical History: Procedure Laterality Date ??? BACK SURGERY 2015 L4-5, nails holding in place ??? CATARACT REMOVAL Left 2016 ??? COLONOSCOPY ??? COLONOSCOPY N/A 08/17/2019 Procedure: COLONOSCOPY: NEGATIVE TI, RANDOM RIGHT COLON BIOPSIES, ASCENDING COLON POLYP (COLD SNARE) LOST SPECIMEN, NOT RETRIEVED, DESCENDING COLON POLYP, DIVERTICULOSIS, HEMORRHOIDS; Surgeon: Terry Green DO; Location: [facility]; Service: Gastroenterology ??? EGD ??? JOINT REPLACEMENT Bilateral 09/2016, 08/2018 knee ??? LAP,CHOLECYSTECTOMY ??? UPPER GASTROINTESTINAL ENDOSCOPY N/A 06/30/2019 Procedure: EGD-SMALL BOWEL BIOPSY, TACOS TEST, GASTRIC POLYPS; Surgeon: Terry Green DO; Location:[facility]; Service: Gastroenterology Outpatient Medications Marked as Taking for the 11/26/19 encounter (Office Visit) with Nayla Read MD Medication Sig Dispense Refill ??? acetaminophen (TYLENOL) 325 MG Tablet Take 650 mg by mouth daily. ??? alendronate (FOSAMAX) 70 MG Tablet Take 70 mg by mouth every 7 days. ??? Ascorbic Acid (VITAMIN C PO) Take 1 Cap by mouth daily. ??? B Complex Vitamins (VITAMIN B COMPLEX PO) Take 1 Cap by mouth daily. ??? Cholecalciferol (VITAMIN D PO) Take 1 Cap by mouth daily. ??? fish oil-omega-3 fatty acids 1000 MG Capsule Take 1,000 mg by mouth daily. ??? losartan-hydrochlorothiazide (HYZAAR) 50-12.5 MG Tablet Take 1 Tab by mouth daily. ??? Multiple Vitamins-Minerals (EYE VITAMINS PO) Take 1 Tab by mouth daily. ??? omeprazole (PRILOSEC) 40 MG CAPSULE DELAYED RELEASE Take 40 mg by mouth daily. ??? Probiotic Product (PROBIOTIC DAILY PO) Take 1 Cap by mouth daily. Social History Socioeconomic History ??? Marital status: [...] file Gets together: Not on file Attends [employer] service: Not on file Active member of [...] Social History Narrative ??? Not on file Occupation majority of life: Listed in the chart Family History Problem Relation Age of Onset ??? Hypertension Mother ??? Cancer Father testicular ??? Cancer Brother colon ??? Cancer Maternal Aunt gyne ??? Ovarian Cancer Maternal Aunt ??? Cancer Maternal Uncle gyne ??? Ovarian Cancer Paternal Aunt ??? Diabetes Maternal Grandmother ??? Diabetes Maternal Grandfather ??? Diabetes Paternal Grandmother ??? Diabetes Paternal Grandfather Genetics Risk Assessment none Allergies as of 11/26/2019 - Reviewed 11/26/2019 Allergen Reaction Noted ??? Vicodin [hydrocodone-acetaminophen] Hives, Rash, and Itching 06/01/2019 ??? Red dye Other (see Comments) 06/01/2019 REVIEW OF SYSTEMS Systemic: Has fatigue. No fever, no chills, no night sweats, and no recent weight change. Head: No headache, no facial pain, and no sinus pain. Neck: No neck pain, no neck stiffness, and no lump or swelling in the neck. Eyes: No vision problems, no itching of the eyes, and no eye pain. No photophobia. Otolaryngeal: No hearing loss, no earache, no tinnitus, no nasal discharge, no epistaxis, no hoarseness, no sore throat, and no bleeding gums. No mouth sores. Breasts: No breast lump, no nipple discharge, and no pain in breast. Cardiovascular: No chest pain or discomfort, no palpitations. Pulmonary: Dyspnea during exertion. No cough, no hemoptysis, and no wheezing. Gastrointestinal: Normal appetite, no dysphagia, and no heartburn. No nausea, no vomiting, no abdominal pain, and no melena. No diarrhea. No constipation. Genitourinary: No hematuria and no increase in urinary frequency. No dysuria. No genital lesion. Endocrine: No polydipsia and no excessive sweating. Hematologic: No easy bleeding and no tendency for easy bruising. Musculoskeletal: No muscle aches, no localized joint pain, and no localized joint stiffness. No history of falls. No vertebral fractures in past. Neurological: No dizziness, no vertigo, no fainting, no motor disturbances, and no sensory disturbances. Psychological: No anxiety, no depression, and no sleep disturbances. Skin: No pruritus. No skin lesions and no rash. Physical Exam General: well-appearing, pale, no acute distress. BP 158/82 (BP Location: Left Arm, BP Position: Sitting, BP Cuff Size: Large) Comment (BP Location):manual cuff Pulse 74 Temp 98 ??F (36.7 ??C) Resp 20 Ht 5' 3.5 (1.613 m) Wt 216 lb 12.8 oz (98.3 kg) SpO2 100% BMI 37.80 kg/m?? HEENT: PERRL, EOMI, sclera clear, face symmetric, oral mucosa moist, no lesions of the oral cavity or oropharynx. Neck: supple, no JVD, no thyromegaly or adenopathy. Chest: lungs clear to auscultation and percussion. Spine: no spinal or CVA tenderness. CV: RRR, no murmur or gallop. Peripheral pulses normal Abd: soft, normo-active bowel sounds, non-tender. No masses or organomegaly. Lymphatics: no adenopathy palpable in cervical, supraclavicular, axillary or inguinal regions. Extr: no clubbing, cyanosis or edema. Skin: no petechiae, ecchymoses or rashes Rectal/: deferred Neuro: alert and oriented, speech is fluent. Psychiatric: normal affect PAIN ASSESSMENT: Denies pain DATA: No results found for: WBC, RBC, HEMOGLOBIN, HEMATOCRIT, MCV, MCH, MCHC, PLATELETCNT, RDW, DIFF, LYMPHOCYTES, RELEOS, RELBAS, ANC, LYMPHOCYTES, MONOCYTES, EOSINOPHILS, BASOPHILS Lab Results Component Value Date CREATININE 0.6 09/05/2019 No components found for: FOLATE No results found for: [id number] No results found for: CPK, CPKI, CKMB, CKMBNI, CKMBPOCT, CKMBRELINDX, TROPONINI, POCTRP No results found for: FERRITIN No results found for: PHARTERIAL, PO2ART, EUZ7QAX, CO2ART, O2ART No results found for: LACACIDPOCT, LACTICA No results found for: INR, PTP No results found for: ANTIMITO No results found for: ABORH, ABOTYPING, RH No results found for this or any previous visit. No results found for: ZOHRA No results found for: AFP No results found for: CA125 No results found for: CA199 No results found for: CEA No results for input(s): [id number] in the last 72 hours. Invalid input(s): [id number] No results found for: CRP No results found for: ESR No results found for: HGBA1C No results found for: HAPTOGLOBIN No results found for: HCV No results found for: COMPLEMENTT, [id number], [id number] No results found for: HAV, HAVIGM, HEPB, HBCAB, HBEA, HCV No results found for this or any previous visit. No results found for: TIBC No results found for: IRON, FERRITIN No results found for: IRONSATURATI No results found for: RETICULOCYTE No results found for: ESR, ZOHRA, RHEUMATOIDFR No results found for: TSH, T3, T4, T4FREE, TPOAB PATHOLOGY: Lab Results Component Value Date FINALDX 08/17/2019 A. Colon, right, random biopsy: - No pathologic diagnosis. B. Colon, descending, polyp, polypectomy: - Tubular adenoma. DIAGNOSTIC IMAGING STUDIES: No results found. No results found for this or any previous visit. No results found for this or any previous visit. No results found for this or any previous visit. No results found for this or any previous visit. No results found for this or any previous visit. Assessment: 1. Iron deficiency. 2. Anemia. 3. GERD. Plan: 1. I reviewed patient's previous lab test result with her. I made her aware of iron deficiency withanemia. I indicated to patient that she will need new blood test in order to confirm the diagnosis and to guide dosage of intravenous iron that is indicated because of her intolerance to oral iron therapy. Patient agreed. 2. Get nonfasting lab: CBC, iron profile. 3. I discussed with patient about intravenous iron Injectafer weekly 750 mg infusion: Common and uncommon adverse effect associated with infusion reviewed with patient. She understood and consented to proceed after lab tests complete. 4. We will schedule patient for iron infusion as soon as we receive repeated lab results. I will see patient for review 4 weeks after last dose of iron infusion with repeat blood test. Documentation for this visit on 11/26/2019 was completed using a template. I have seen and examined the patient. Everything documented was personally performed at this visit with the necessary additions, deletions and changes made as appropriate. The patient was given an opportunity to ask questions, and all questions answered to patient's satisfaction. Patient verbalizes understanding of the plan as outlined above. NAYLA READ MD 11/26/2019 10:06 AM ICAL SUPPLIES STERILIZER documented in this encounter Miscellaneous Notes * Interdisciplinary - Layne Walsh - 11/26/2019 9:00 AM CST The patient has no complaints during today's visit and a pain score of 0. ICAL SUPPLIES STERILIZER documented in this encounter Plan of Treatment Scheduled Orders Name Type Priority Associated Diagnoses Orde r Schedule COMPLETE BLOOD COUNT (CBC) WITH DIFF Lab Routine Iron deficiency anemia, unspecified iron deficiency anemia type 3 Occurrences starting 11/26/2019 until 11/25/2020, 1 completed IRON W/IRON BINDING CAPACITY Lab Routine Iron deficiency anemia, unspecified iron deficiency anemia type 3 Occurrences starting 11/26/2019 until 11/25/2020 FERRITIN Lab Routine Iron deficiency anemia, unspecified iron deficiency anemia type 3 Occurrences starting 11/26/2019 until 11/25/2020, 1 completed documented as of this encounter Results * FERRITIN (11/30/2019) Blood specimen (specimen) us Nayla Read MD CHEMISTRY ORDERABLES Final Resul t * COMPLETE BLOOD COUNT (CBC) WITH DIFF (11/30/2019) Blood specimen (specimen) us Nayla Read MD HEMATOLOGY ORDERABLES Final Resu lt documented in this encounter Visit Diagnoses Diagnosis Iron deficiency anemia, unspecified iron deficiency anemia type documented in this encounter Care Teams Vice Chair Relationship Specialty Start Date End Date Rinku Beasley MD [address] [place] [address] PCP - General Internal Medicine 05/21/19 documented as of this encounter
--- OUTSIDE RECORDS SUMMARY | 2024-10-06 05:33 | XMS_ITS | Encounter Summary ---
Author Organization [facility] Address [address] [place] [address] Care Team Providers Care Pattern Checker Name Role Phone Rinku Beasley MD Primary Care Provider [phone] Encounter Details Date Type Department Care Team (Late st Contact Info) Description 07/02/2022 Testing Visit [facility] [address] [place] [id number] Maty King, FELLMONGERY WORKER [address] [place] [address] [place] [address] Oropharyngeal dysphagia ; Dysphagia, unspecified type Social History Tobacco Use Types Packs/Day Years Used Date Smoking Tobacco: Never Smokeless Tobacco: Never Alcohol Use Standard Drinks/Week Comments Never 0 (1 standard drink = 0.6 oz pur e alcohol) Sex and Gender Information Value Date Recorded Sex Assigned at Not on file Gender Identity Not on file Sexual Orientation Not on file documented as of this encounter Progress Notes * Maty Leary, FELLMONGERY WORKER - 07/02/2022 1:38 PM CDT Speech Language Pathology Speech Therapy Modified Barium Swallow Patient: Lluvia Castaneda Med Record Number [id number] Date of : 1950 Age: [age] year old Referring Physician: Dr. Quiroz Diagnosis: There is no problem list on file for this patient. No past medical history on file. Subjective: Lluiva Castaneda is a 72 year old female with history of dysphagia to solids and pills beginning about a year ago. She reports that solid foods (breads, meats, crackers) and pills get stuck in her throat. She has to take smaller bites, chew well, wash them down and tuck her chin to swallow. She avoids some dry solids due to dysphagia. She denies dysphagia to liquids. She denies recent chest infections or pain with swallowing. She has gained weight over the past year due to reduced activity. She recently had EGD with dilation at OSH which did not improve symptoms. FOIS: 5, Total oral diet with multiple consistencies, but requiring special preparation or compensations. Weight: Wt Readings from Last 3 Encounters: 06/05/22 238 lb 3.2 oz (108 kg) Height: Ht Readings from Last 3 Encounters: 06/05/22 5' 3 (1.6 m) Medical History: Pulmonary status: WNL Pulmonary history: None reported Neurological history: None reported Esophageal history: GERD, recent esophageal dilation without improvement to symptoms Systemic/metabolic history: None reported Cancer-related history: None reported Surgical procedures: None reported to the head or neck Clinical Observations and Exam Cognitive/Mental Status: Patient appears alert, oriented with no cognitive impairments that will interfere with therapy intervention. Ambulatory status: Fully ambulatory Cranial nerve function: CN V, VII, IX, X, and XII were judged as within normal limits for swallowing function. MODIFIED BARIUM SWALLOW STUDY: Procedure: This procedure was performed in conjunction with radiology using lateral and jroehbhk-[id number]-ktpqnaatq views, as tolerated. Commercially prepared, standardized barium viscosities were used andgraduated from thin liquid to pudding consistency. The patient was given the following items in thelateral view: Varibar thin liquid barium (5 cc, 5 cc, single sip, consecutive drinking task), nectar thick liquid barium (5 cc, single sip, consecutive drinking task), 5 cc honey thick liquid, pudding by teaspoon and pudding on cracker. AP screen was performed with 20cc E-Z Paque Liquid Barium Sulfate Suspension (60% w/v) and 13mm barium tablet. Oral Stage: Oral transit is characterized by adequate oral containment with complete lingua-velar valving. Lingua-palatal stripping and tongue base retraction is complete. Pharyngeal Stage: Pharyngeal response is timely. Pharyngeal clearance is complete, consistent with residue. Posterior pharyngeal wave is prominent and the epiglottis completely inverts. In AP view, lateral pharyngeal constriction is symmetrical and complete. 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 Airway protection is complete. There is no penetration or aspiration detected in this exam. Esophageal Stage: PES is patent. There is intermittent premature CP closure which results in retrograde flow from the UES into the cervical esophagus and pyriform sinuses. A 13 mm barium tablet passes freely through the level of the UES, aortic arch, and LES. Impressions: Lluvia Castaneda demonstrates normal oropharyngeal swallow function characterized by adequate oral containment, [id number] propulsion, tongue base retraction, epiglottic inversion and pharyngeal constriction. 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 Results and recommendations from this evaluation were reviewed with the patient. I recommend she continue with current diet. I will review imaging with Dr. Quiroz. Patient demonstrated good understanding of instructions given. Informed Consent to Treatment: Plan of care including recommended therapy, goals and frequency, as well as potential risks and benefits of treatment/assessment explained to the patient who understands and agrees to proceed. Patient was instructed regarding the above techniques, recommendations and plan of care and verbalized understanding. Guidelines were posted (inpatient only): n/a Goals: Short Term Goal(s): Patient to receive instruction in compensatory swallowing strategies and/or recommendations and verbalize understanding. Air Table Operator Goal(s): Patient to tolerate least restrictive diet without complications. Plan: Continue with current diet Careful VAMSHI precautions Oral hygiene at least twice each day Follow up with Dr. Gabriella Leary MA, CCC-FELLMONGERY WORKER, [facility] Speech Language Pathologist Department of Otolaryngology- Head and Neck Surgery documented in this encounter Plan of Treatment Not on file documented as of this encounter Visit Diagnoses Diagnosis Oropharyngeal dysphagia- Primary Dysphagia, oropharyngeal phase Dysphagia, unspecified type documented in this encounter Care Teams Pattern Checker Relationship Specialty Start Date End Date Rinku Beasley MD [address] [place] [address] PCP - General 04/19/22 documented as of this encounter
--- OUTSIDE RECORDS SUMMARY | 2024-10-06 05:33 | XMS_ITS | Encounter Summary ---
Author Organization [facility] Address [address] [place] [address] Care Team Providers Care Steamboat Captain Name Role Phone Rinku Beasley MD Primary Care Provider [phone] Reason for Visit * Reason Comments Throat Problem Encounter Details Date Type Department Care Team (Latest Contact Info) Description 08/07/2022 11:15 AM CLINICAL LABORATORY MANAGER Office Visit [facility] [address] [place] [address] [phone] Jw Quiroz MD [address] [place] [address] [place] [address] Oropharyngeal dysphagia (Primary Dx) Social History Tobacco Use Types [...] Comments Blood Pressure 128/86 08/07/2022 11:26 AM CLINICAL LABORATORY MANAGER Pulse 81 08/07/2022 11:26 AM CLINICAL LABORATORY MANAGER Temperature - - Respiratory Rate - - Oxygen Saturation - - Inhaled Oxygen Concentration - - Weight 106.4 kg (234 lb 9.6 oz) 022 11:26 AM CLINICAL LABORATORY MANAGER Height 160 cm (5' 3 ) 08/07/2022 11:26 AM CLINICAL LABORATORY MANAGER Body Mass Index 41.56 08/07/2022 11:26 AM CLINICAL LABORATORY MANAGER documented in this encounter Patient Instructions * Patient Instructions* Melly Ward - 08/07/2022 11:27 AM CLINICAL LABORATORY MANAGER Thank you for visiting [facility] Otolaryngology - Head & Neck Surgery. We [...] an appointment, please call our office at [phone] Saturday through Saturday from 8:30 am to4:30 pm. You can also request a routine appointment through your [employer] account. Prescription Refills Contact your pharmacy to [...] call the medical exchangeat and ask the grating machine operator to page the ENT physician environmental marketing representative. *Caller ID blocking service will need to be turned off for your call to be returned. We also specialize in Hearing Aids, Allergy testing, swallowing disorders, voice problems, cancer diagnosis, and so much more. Visit our website at [email or web address] for information about our practice and an interactive health encyclopedia. Thank you for visiting [facility] Otolaryngology - Head & Neck Surgery. We [...] an appointment, please call our office at [phone] Saturday through Saturday from 8:00 am to4:30 pm. You can also request a routine appointment through your [employer] account. Prescription Refills Contact your pharmacy to [...] the medical exchange at and ask the grating machine operator to page the ENT physician environmental marketing representative. *Caller ID blocking service will need to be turned off for your call to be returned. We also specialize in Hearing Aids, Allergy testing, swallowing disorders, voice problems, cancer diagnosis, and so much more. Visit our website at [email or web address] for information about our practice and an interactive health encyclopedia. Thank you for visiting [facility] Otolaryngology - Head & Neck Surgery. We [...] an appointment, please call our office at [phone] Saturday through Saturday from 8:00 am to4:30 pm. You can also request a routine appointment through your [employer] account. Prescription Refills Contact your pharmacy to [...] the medical exchange at and ask the grating machine operator to page the ENT physician environmental marketing representative. *Caller ID blocking service will need to be turned off for your call to be returned. We also specialize in Hearing Aids, Allergy testing, swallowing disorders, voice problems, cancer diagnosis, and so much more. Visit our website at [email or web address] for information about our practice and an interactive health encyclopedia. ICAL LABORATORY MANAGER documented in this encounter Progress Notes * Gloria Ngo MD - 08/07/2022 11:49 AM CST History of Present Illness: Lluvia is a 72 year old female who presents for evaluation of trouble swallowing, here today to discuss results of MBS. Patient had an MBS with Maty Leary and is here today to discuss results. She notes no new symptoms. Continues to have difficulty swallowing solids, which improves with liquids and chin tucking. Getting stress test this week for atrial fibrillation. Past Medical History: No past medical history on file. Past Surgical History: Procedure Laterality Date ??? Knee Replacement Left 2016 ??? Knee Replacement Right 2017 ??? LUMBAR SPINE FUSION 2019 L 3-4 [...] mouth ??? vitamine D3 (Cholecalciferol) 250 MCG (75151 UT) capsule Take 1 Units by mouth once daily No current facility-administered medications for this visit. Allergies Allergen Reactions ??? Hydrocodone Itching A LOT OF ITCHING Social History Tobacco Use ??? Smoking status: Never ??? Smokeless tobacco: Never Vaping Use ??? Vaping Use: Never used Substance Use Topics ??? Alcohol use: Never ??? Drug use: Never Review of Systems: An 14 point review of systems was completed and negative except for: Please see the HPI Physical Examination: BP 128/86 (BP SITE: LEFT ARM, BP POSITION: SITTING, BP CUFF SIZE: 12) Pulse 81 Ht 5' 3 (1.6 m) Wt 234 lb 9.6 oz (106.4 kg) Body mass index is 41.56 kg/m??. Constitutional: in no apparent distress and [...] asymmetry, or inflammation Septum: Good alignment Turbinates: [place], non-edematous, without discharge Mucosa: [place], healthy appearing Oral Cavity: No perioral or [...] color, texture normal. No rashes or lesions MBS 07/02/22 with Maty Leary Impressions: Lluvia Agrawal Castaneda demonstrates normal oropharyngeal swallow function characterized by adequate oral containment, oyknuwfg-ck-xiqimhfzl propulsion, tongue base retraction, epiglottic inversion and pharyngeal constriction. 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 MODIFIED ESOPHAGRAM 02/27/22 [facility] HISTORY: Dysphagia. TECHNIQUE: Modified barium esophagram [...] detail. Assessment and Plan: Lluvia is a 72 year old female with chronic dysphagia, with recent MBS that revealed normal swallow function and presence of bilateral pharyngoceles. Patient still having difficulty with dry foods. Gloria Ngo MD Otolaryngology and Head and Neck Surgery Resident 08/07/22 I have seen and examined the patient and agree with the comments and findings in the above residentnote. The above note reflects a procedure that I performed in clinic. The resident surgeon assisted with the procedure and/or the procedural note. I was present for, and participated in, the entirety of the encounter and the procedure. Jw Quiroz M.D. Professor 72-year-old woman who initially presented to us with complaint of some difficulty with swallowing. We recommend a modified barium swallow which did not reveal any specific abnormality no evidence of aspiration. Overall all of the findings were able to be compensated for with appropriate swallowing m odifications. Increasing lubrication pre and post bolus. We had reviewed her modified barium swallow with the speech-language pathologist present today. Overall at this point there does not appear to be any significant abnormality. Of interest the patient also has had some shortness of breath issues. She is currently having a cardiology evaluation for this. It is possible that some of her muscle tension dysphagia could also be related to vocal cord dysfunction and breathing techniques. We will wait for the complete work-up with regards to her cardiac evaluation and then potentially offer speech therapy evaluation and treatment if there continues to be problems with shortness of breath and dysphagia. ICAL LABORATORY MANAGER documented in this encounter Plan of Treatment Not on file documented as of this encounter Visit Diagnoses Diagnosis Oropharyngeal dysphagia- Primary Dysphagia, oropharyngeal phase documented in this encounter Care Teams Steamboat Captain Relationship Specialty Start Date End Date Rinku Beasley MD [address] [place] [address] PCP - General 04/19/22 documented as of this encounter
--- OUTSIDE RECORDS SUMMARY | 2024-10-06 05:33 | XMS_ITS | Encounter Summary ---
Author Organization [facility] Address [address] [place] [address] Phone Care Team Providers Care Set Making Machine Operator Name Role Phone Rinku Beasley MD Primary Care Provider [phone] Reason for Visit * Reason Onset Date Comments Results 10/13/2019 Capsule Endosocp y at [facility] Encounter Details Date Type Department Care Team (Late st Contact Info) Description 10/13/2019 Telephone [facility] - Gastroenterology [facility] [address] [place] [address] Terry Green, DO [address] [address] Results (Capsule Endosocpy at [facility]) Social History Tobacco Use Types Packs/Day Years [...] encounter Miscellaneous Notes * Telephone Encounter - Mary Apodaca RN - 10/13/2019 2:12 PM CST Patient returned call. Patient notified of results. Patient verbalizes understanding. Letter not sent UCTION WOOD CRAFTSMAN * Telephone Encounter - Mary Apodaca RN - 10/13/2019 1:59 PM CST Facility: [facility] Test: Capsule Endooscopy Results: normal Orders: none Test on: 09/14/19 Placed in paperwork to go to [facility] on: 10/13/19 Left message on machine. Letter sent. UCTION WOOD CRAFTSMAN documented in this encounter Plan of Treatment Not on file documented as of this encounter Visit Diagnoses Not on filedocumented in this encounter Care Teams Set Making Machine Operator Relationship Specialty Start Date End Date Rinku Beasley MD [address] [place] [address] PCP - General Internal Medicine 05/21/19 documented as of this encounter
--- OUTSIDE RECORDS SUMMARY | 2024-10-06 05:33 | XMS_ITS | Encounter Summary ---
Author Organization [facility] [facility] Care Team Providers Care Magnetic Prospecting Operator Name Role Phone Rinku Beasley MD Primary Care Provider [phone] Encounter Details Date Type Department Care Team (Latest Contact Info) Description 11/12/2019 Travel Social History Tobacco Use Types Packs/Day [...] on filedocumented in this encounter Care Teams Magnetic Prospecting Operator Relationship Specialty Start Date End Date Rinku Beasley MD [address] [place] [address] PCP - General Internal Medicine 05/21/19 documented as of this encounter
--- OUTSIDE RECORDS SUMMARY | 2024-10-06 05:33 | XMS_ITS | Clinical Summary ---
Author Organization [facility] Address [address] [place] [address]. [place], [place] [address] [place] [address] Care Team Providers Care Career Center Director Name Role Phone Unavailable Primary Care Provider Unavailabl e Social History Tobacco Use Types Packs/Day Years Used Date Smoking Tobacco: Never Assessed Comments Unknown Sex and Gender Information Value Date Recorded Sex Assigned at Not on file Legal Sex Female 11:53 AM CDT Gender Identity Not on file Sexual Orientation Not on file Plan of Treatment Health Maintenance Due Date Last Done Comments Colorectal Cancer Screening Colonoscopy (10 Years) 1952 Hepatitis C 1970 DTaP, Tdap and Td Vaccines ( 1 - Tdap) 1971 Mammogram Screening 1992 Zoster Vaccines (1 of 2) 2002 Annual Medicare Wellness Visit 2017 Dexa Scan (General) 2017 Pneumococcal Vaccine: 65+ Ye ars (1 of 1 - PCV) 2017 COVID-19 Vaccine ( - 2023-2 5 season) 2024 Influenza Adult (#1) 2024 RSV Immunization or 60+ Years (1 - 1-dose 75+ series) 2027 Meningococcal Vaccine Aged Out No phil errol eligible based on patient's age to complete this topic RSV Immunizations Under 20 Months Aged Out No longer eligible based on patient's age to complete this topic Insurance MEDICARE [employer]
--- OUTSIDE RECORDS SUMMARY | 2024-10-06 05:33 | XMS_ITS | Clinical Summary ---
Author Organization [facility] Address [address] [place] [address] Phone Care Team Providers Care Lamp Inspector Name Role Phone Rinku Beasley MD Primary Care Provider [phone] Laurie Wilkins APRN, EQUITY STRUCTURER Unavailable Allergies Active Allergy Reactions Criticality Noted Date Comments Red Dye #40 (Allura Red) Other (see Comments) Medium 06/01/2019 Itching hives rash, Hydrocodone-Acetamin ophen Hives,Rash,Itching High 06/01/2019 Medications losartan-hydroc hlorothiazide (HYZAAR) 50-12.5 MG Tablet Take 1 Tab by mouth daily. Active omeprazole (PRILOSEC) 40 MG CAPSULE DELAYED RELEASE Take 40 mg by mouth daily. Active alendronate (FOSAMAX) 70 MG Tablet Take 70 mg by mouth every 7 days. Active Multiple Vitamins-Minera ls (EYE VITAMINS PO) Take 1 Tab by mouth daily. Active Probiotic Product (PROBIOTIC DAILY PO) Take 1 Cap by mouth daily. Active fish oil-omega-3 fatty acids 1000 MG Capsule Take 1,000 mg by mouth daily. Active [place]-3 Fatty Acids (FISH OIL PO) Take 1 Tab by mouth daily. Active Cholecalciferol (VITAMIN D PO) Take 1 Cap by mouth daily. Active acetaminophen (TYLENOL) 325 MG Tablet Take 650 mg by mouth daily. Active Ascorbic Acid (VITAMIN C PO) Take 1 Cap by mouth daily. Active B Complex Vitamins (VITAMIN B COMPLEX PO) Take 1 Cap by mouth daily. Active diphenhydrAMINE (BENADRYL ALLERGY) 25 MG Capsule Take 25 mg by mouth nightly as needed. Active Active Problems Problem Noted Date Diagnosed Date Iron deficiency anemia 11/26/2019 Family History Medical History Relation Name Comments Cancer Brother colon Cancer Father testicular Cancer Maternal Aunt gyne Ovarian Cancer Maternal Aunt Diabetes Maternal Grandfather Diabetes Maternal Grandmother Cancer Maternal Uncle gyne Hypertension Mother Ovarian Cancer Paternal Aunt Diabetes Paternal Grandfather Diabetes Paternal Grandmother Relation Name Status Comments Brother Father Maternal Aunt Maternal Grandfather Maternal Grandmother Maternal Uncle Mother Paternal Aunt Paternal Grandfather Paternal Grandmother Social History Tobacco Use Types Packs/Day Years [...] Comments Blood Pressure 158/82 11/26/2019 10:00 AM GROVE SUPERINTENDENT Pulse 74 11/26/2019 10:00 AM GROVE SUPERINTENDENT Temperature 36.7 ??C (98 ??F) 11/26/2019 10: 00 AM GROVE SUPERINTENDENT Respiratory Rate 20 11/26/2019 10:0 0 AM GROVE SUPERINTENDENT Oxygen Saturation 100% 11/26/2019 10: 00 AM GROVE SUPERINTENDENT Inhaled Oxygen Concentration - - Weight 98.3 kg (216 lb 12.8 oz) 020 10:00 AM GROVE SUPERINTENDENT Height 161.3 cm (5' 3.5 ) 11/26/2019 10 :00 AM GROVE SUPERINTENDENT Body Mass Index 37.8 11/26/2019 10:00 AM GROVE SUPERINTENDENT Plan of Treatment Health Maintenance Due Date Last Done Comments DEXA Bone Density 1950 Hepatitis C Virus (HCV) Screening 1950 Cologuard 2002 Immunochemical Fecal Occult Blood 2002 Mammogram 2002 Zoster Immunization (2 of 3) 03/31/2014 02/03/2014 Influenza Immunization (#1) 05/24/202406/24, 05/23/2016 SARS-COV-2 Immunization (1 - season) 2024 Colonoscopy 08/17/2024 08/17/2019, 07/27/2015 Colorectal Cancer Screening 08/17/2024 Respiratory Syncytial Virus (RSV) Immunization (Adult) (1 - 1-dose 75+ series) 2027 08/17/2019, 07/27/2015 DTaP/Tdap/Td Immunization Discontinued 2015, 03/17/2009 TdaP Immunization Completed 05/23/2016, 03/17/2009 Pneumococcal Immunization (5 0+ years) Completed 01/03/2018, 07/05/2017, 12/07/2014 Pneumococcal Immunization Combined Discontinued 01/03/2018, 07/05/2017, 12/07/2014 Hepatitis B Immunization Aged Out No longer eligible based on patient's age to complete this topic Meningococcal Immunization (ACWY) Aged Out No longer eligible based on patient's age to complete this topic Rotavirus Immunization Aged Out No lo nger eligible based on patient's age to complete this topic Procedures Procedure Name Priority Date/Time Associated Diagnosis Comments COLONOSCOPY Routine 07/27/2015 from Last 3 Months or Most Recently Relevant to Health Maintenance Results * COLONOSCOPY (07/27/2015) Rosina Heredia MD PROCEDURE/MINOR SURGICAL O RDERABLES Final Result from Last 3 Months or Most Recently Relevant to Health Maintenance Insurance MEDICARE [employer] Care Teams Lamp Inspector Relationship Specialty Start Date End Date Rinku Beasley MD [address] [place], [place] [phone] PCP - General Internal Medicine 05/21/19 Laurie Wilkins, AML ANALYST, EQUITY STRUCTURER [address] [place], [place] [phone] Nurse Practitioner Advanced Practice Nurse 12/01/19
--- OUTSIDE RECORDS SUMMARY | 2024-10-06 05:34 | XMS_ITS | Encounter Summary ---
Author Organization [facility] Address [address] [place] [address] Care Team Providers Care Oil Mixer Name Role Phone Rinku Beasley MD Primary Care Provider + Encounter Details Date Type Department Care Team (Late st Contact Info) Description 06/23/2024 External Device Data STL ABSTRACTION Provider, Abstract NO ADDRESS ON FILE Social History Tobacco Use Types Packs/Day Years Used Date Smoking Tobacco: Never Smokeless Tobacco: Never Alcohol Use Standard Drinks/Week Comments Never 0 (1 standard drink = 0.6 oz pur e alcohol) Sex and Gender Information Value Date Recorded Sex Assigned at Not on file Gender Identity Not on file Sexual Orientation Not on file documented as of this encounter Plan of Treatment Upcoming Encounters Date Type Department Care Team (Late st Contact Info) Description 11/09/2024 1:15 PM TERMITE CONTROL REPRESENTATIVE Office Visit [facility] Oncology and Hematology - [place] [address] [place] [address] [facility] [address] [place] [address] Jacinto Arzate MD [address] [facility] [address] [place] [address] documented as of this encounter Visit Diagnoses Not on filedocumented in this encounter Care Teams Oil Mixer Relationship Specialty Start Date End Date Rinku Beasley MD [address] [place] [address] PCP - General Internal Medicine 05/22/23 documented as of this encounter
--- OUTSIDE RECORDS SUMMARY | 2024-10-06 05:34 | XMS_ITS | Encounter Summary ---
Author Organization [facility] Address [address] [place] [address] Care Team Providers Care Ordnance Mechanic Name Role Phone Rinku Beasley MD Primary Care Provider + Encounter Details Date Type Department Care Team (Late st Contact Info) Description 07/22/2024 External Device Data STL ABSTRACTION Provider, Abstract [...] st Contact Info) Description 11/09/2024 1:15 PM BLUEPRINT MAKER Office Visit [facility] Oncology and Hematology - [place] [address] [place] [address] [facility] [address] [place] [address] Jacinto Arzate MD [address] [facility] [address] [place] [address] documented as of this encounter Visit Diagnoses Not on filedocumented in this encounter Care Teams Ordnance Mechanic Relationship Specialty Start Date End Date Rinku Beasley MD [address] [place] [address] PCP - General Internal Medicine 05/22/23 documented as of this encounter
--- OUTSIDE RECORDS SUMMARY | 2024-10-06 05:34 | XMS_ITS | Clinical Summary ---
Author Organization [facility] Address [address] [place] [address] Care Team Providers Care Lunchroom Food Service Supervisor Name Role Phone Rinku Beasley MD Primary Care Provider + Allergies Active Allergy Reactions Criticality Noted Date Comments Hydrocodone-Acetamin ophen Hives,Itching,Rash High 06/01/2019 Red Dye Other (See Comments),Rash Medium 06/01/2019 Itching hives rash, Itching hives rash, Medications Medication Sig Dispensed Refills Start Date End Date Status acetaminophen (TYLENOL) 325 mg tablet Take 500 mg by mouth daily. Active apixaban (Eliquis) 5 mg tablet TAKE 1 TABLET (5 MG) BY ORAL ROUTE 2 TIMES PER DAY 05/04/2021 Active metoprolol tartrate (LOPRESSOR) 50 mg tablet Take 100 mg by mouth 2 times daily. 05/22/2021 Active multivitamins-minera ls-lutein (CENTRUM SILVER) Tablet Take 1 Tablet by mouth daily. Active omeprazole (PriLOSEC) 40 mg Capsule, Delayed Release(E.C.) Take 40 mg by mouth daily. Active spironolactone (ALDACTONE) 50 mg tablet Take 50 mg by mouth daily. 04/23/2022 Active diphenhydrAMINE (BENADRYL) 25 mg capsule Take 25 mg by mouth. Acti ve exnqzbc-uglq-vpxdv-o reg-capryl 100 mg-150 mg- 50 mg-150 mg Capsule Take by mouth. Active Cranberry 500 mg Capsule Take by mouth. Active dofetilide (TIKOSYN) 125 mcg capsule Take 125 mcg by mouth 2 times daily. 11/22/2023 Active fluticasone propionate (FLONASE) 50 mcg/spray [place], Suspension nasal inhaler Administer 2 Sprays in each nostril daily. Active azelastine (ASTELIN) 137 mcg/actuation nasal spray Administer 1 [place] in each nostril daily. 04/27/2022 Active Active Problems No known active problems Encounters Date Type Department Care Team Description 07/22/2024 External Device Data STL ABSTRACTION Provider, Abstract 07/07/2024 External Device Data STL ABSTRACTION Provider, Abstract from Last 3 Months Family History Medical History Relation Name Comments Melanoma Brother 1 Colon Cancer Brother 5 Testicular Cancer Father Relation Name Status Comments Brother 1 Alive Brother 2 Alive Brother 3 Alive Brother 4 Alive Brother 5 Daughter Alive Father Mother Sister Alive Son Alive Social History Tobacco Use Types Packs/Day Years [...] Sign Reading Time Taken Comments Blood Pressure 137/81 05/05/2024 1:09 PM CDT Pulse 60 05/05/2024 1:09 PM CDT Temperature 36.7 ??C (98 ??F) 05/05/2024 1:09 PM CDT Respiratory Rate 16 05/05/2024 1:09 PM CDT Oxygen Saturation 97% 05/05/2024 1:09 PM CDT Inhaled Oxygen Concentration - - Weight 102.1 kg (225 lb) 05/05/2024 1:09 PM CDT Height 160 cm (5' 3 ) 08/12/2023 9:42 AM LOFT WORKER PILE DRIVING Body Mass Index 39.86 08/12/2023 9:42 AM LOFT WORKER PILE DRIVING Plan of Treatment Upcoming Encounters Date Type Department Care Team (Late st Contact Info) Description 11/09/2024 1:15 PM LOFT WORKER PILE DRIVING Office Visit [facility] Oncology and Hematology - [place] [address] [facility] [address] [place] [address] Jacinto Arzate MD [address] [facility] [address] [place] [address] Health Maintenance Due Date Last Done Comments DTAP/TDAP/TD VACCINES (1 - Tdap) 1971 BREAST CANCER SCREENING 1992 FIT-DNA Q 3 years 1997 FIT/FOBT Q 1 year 1997 Flex Sig/CT Colonography Q 5 years 1997 ZOSTER VACCINE (1 of 2) 2002 OSTEOPOROSIS SCREENING 2017 PNEUMOCOCCAL VACCINE 65+ YEARS (1 of 1 - PCV) 06/25/20 17 INFLUENZA VACCINE (#1) 2024 COLORECTAL SCREENING 07/27/2025 07/27/2015 Colorectal Cancer Screening 07/27/2025 RSV VACCINE (60+ or ) (1 - 1-dose 75+ series) 2027 Care Teams Lunchroom Food Service Supervisor Relationship Specialty Start Date End Date Rinku Beasley MD [address] [place] [address] PCP - General Internal Medicine 05/22/23
--- OUTSIDE RECORDS SUMMARY | 2024-10-06 05:34 | XMS_ITS | Encounter Summary ---
Author Organization [facility] Address [address] [place] [address] Care Team Providers Care C Iron Worker Name Role Phone Rinku Beasley MD Primary Care Provider + Encounter Details Date Type Department Care Team (Late st Contact Info) Description 07/07/2024 External Device Data STL ABSTRACTION Provider, [...] st Contact Info) Description 11/09/2024 1:15 PM PHARMACY MESSENGER Office Visit [facility] Oncology and Hematology - [place] [address] [place] [address] [facility] [address] [place] [address] Jacinto Arzate MD [address] [facility] [address] [place] [address] documented as of this encounter Visit Diagnoses Not on filedocumented in this encounter Care Teams C Iron Worker Relationship Specialty Start Date End Date Rinku Beasley MD [address] [place] [address] PCP - General Internal Medicine 05/22/23 documented as of this encounter
--- OUTSIDE RECORDS SUMMARY | 2024-10-06 05:34 | XMS_ITS | Encounter Summary ---
Author Organization [facility] Address [address] [place] [address] Care Team Providers Care Canvas Repairer Name Role Phone Rinku Beasley MD Primary Care Provider + Encounter Details Date Type Department Care Team (Late st Contact Info) Description 06/02/2024 External Device Data STL ABSTRACTION Provider, Abstract [...] st Contact Info) Description 11/09/2024 1:15 PM HEALTH NURSE Office Visit [facility] Oncology and Hematology - [place] [address] [place] [address] [facility] [address] [place] [address] Jacinto Arzate MD [address] [facility] [address] [place] [address] documented as of this encounter Visit Diagnoses Not on filedocumented in this encounter Care Teams Canvas Repairer Relationship Specialty Start Date End Date Rinku Beasley MD [address] [place] [address] PCP - General Internal Medicine 05/22/23 documented as of this encounter
--- OUTSIDE RECORDS SUMMARY | 2024-10-06 05:35 | XMS_ITS | Encounter Summary ---
Author Organization [facility] Address [address] [place] [address] Care Team Providers Care Coordinate Measuring Machine Programmer Name Role Phone Rinku Beasley MD Primary Care Provider + Encounter Details Date Type Department Care Team (Late st Contact Info) Description 08/20/2023 External Device Data STL ABSTRACTION Provider, Abstract [...] st Contact Info) Description 11/09/2024 1:15 PM BRUISE TRIMMER Office Visit [facility] Oncology and Hematology [place] [address] [place] [address] [facility] [address] [place] [address] Jacinto Arzate MD [address] [facility] [address] [place] [address] documented as of this encounter Visit Diagnoses Not on filedocumented in this encounter Care Teams Coordinate Measuring Machine Programmer Relationship Specialty Start Date End Date Rinku Beasley MD [address] [place] [address] PCP - General Internal Medicine 05/22/23 documented as of this encounter
--- OUTSIDE RECORDS SUMMARY | 2024-10-06 05:35 | XMS_ITS | Encounter Summary ---
Author Organization [facility] SAIDA Agrawal [facility] Address [address] [place] [address] Care Team Providers Care Fiscal Accountant Name Role Phone Rinku Beasley MD Primary Care Provider + Reason for Visit * Reason Comments Follow Up Encounter Details Date Type Department Care Team (Late st Contact Info) Description 08/27/2023 2:30 PM BARTENDER SERVER Office Visit [facility] Oncology and Hematology - [place] [address] [facility] [address] [place] [address] Jacinto Arzate MD [address] [facility] [address] [place] [address] Chronic anemia (Primary Dx) Social History Tobacco Use Types [...] Sign Reading Time Taken Comments Blood Pressure 116/76 08/27/2023 2:03 PM BARTENDER SERVER Pulse 102 08/27/2023 2:03 PM BARTENDER SERVER Temperature 36.1 ??C (96.9 ??F) 08/27/2023 2:03 PM CS T Respiratory Rate 10 08/27/2023 2:03 PM BARTENDER SERVER Oxygen Saturation 99% 08/27/2023 2:03 PM BARTENDER SERVER Inhaled Oxygen Concentration - - Weight 91.6 kg (202 lb) 08/27/2023 2:03 PM BARTENDER SERVER Height - - Body Mass Index 35.78 08/12/2023 9:42 AM BARTENDER SERVER documented in this encounter Progress Notes * Jacinto Arzate MD - 08/27/2023 2:33 PM CST HEMATOLOGY / ONCOLOGY PROGRESS NOTE Patient Identification: Name: Lluvia Castaneda Age: 73 y.o. Sex: female : 1950 DIAGNOSIS Normocytic anemia CURRENT TREATMENT Multivitamin TREATMENT HISTORY SUBJECTIVE Patient came to the office for follow-up visit. She denies any bleeding and bruising. Denies any chest pain or shortness of breath. Weight and appetite stable. No other new complaints. Review of system Constitutional: Patient did not mention fevers, sweats, fatigue, malaise, weight loss HEENT: Patient did not mention sinus congestion, hearing or vision problems Respiratory: Patient did not mention cough, dyspnea, wheeze Cardiovascular: Patient did not mention chest pain, exertional chest pressure/discomfort, nausea, syncope, shortness of breath GI: Patient did not mention constipation, diarrhea, dsyphagia, reflux symptoms, vomiting, melena : Patient did not mention dysuria, frequency, incontinence, urgency Integumentary system: no lymphadenopathy, sweats, flushing Musculoskeletal: Patient not mention: myalgia, arthralgia Neurological: Patient did not mention blurry or disturbed vision, numbness/weakness, dizziness Skin: No lumps, bumps or rashes. Objective: Vital signs in last 24 hours: As per nursing note Exam: General appearance: alert, cooperative, no distress, appears stated age Head: normocephalic, without obvious abnormality, atraumatic Eyes: conjunctivae/corneas clear, EOM's intact Ears: normal external ear canals AU Nose: Nares normal. Septum midline. Mucosa normal. No drainage or sinus tenderness Throat: Lips, mucosa, and tongue normal. Teeth and gums normal Neck: supple, symmetrical, trachea midline. Lungs: clear to auscultation bilaterally Heart: regular rate and rhythm, S1, S2 normal, no murmur, click, rub or gallop Abdomen: soft, non-tender. Bowel sounds normal. No masses, No organomegaly Extremities: extremities normal, atraumatic, no cyanosis or edema Skin: Skin color, texture, turgor normal. No rashes or lesions Lymph nodes: No lymphadenopathy Neuro: No obvious focal deficit PATH LABS Will from August 12 showed creatinine 1.2 GFR 44 B12 434 iron 92 saturation 25% ferritin 23.4 hemoglobin 12.4 @IMAGEIMP@ Assessment: Plan: There are no problems to display for this patient. Normocytic anemia. Labs showed normal hemoglobin. Previously hemoglobin was 11.0. Other labs showednormal iron and B12 level. GFR slightly low may be responsible for slight anemia in the past. No further work-up is needed. He will continue multivitamin and will repeat labs again in 4 months. A-fib. Stable on Eliquis. GERD. She is on omeprazole. ? TOBACCO COUNSELING She is not a tobacco/nicotine user. 08/27/2023 Jacinto Arzate MD ENDER SERVER documented in this encounter Plan of Treatment Upcoming Encounters Date Type Department Care Team (Late st Contact Info) Description 11/09/2024 1:15 PM BARTENDER SERVER Office Visit [facility] Oncology and Hematology [facility] [address] [facility] [address] [place] [address] Jacinto Arzate MD [address] [facility] [address] [place] [address] documented as of this encounter Visit Diagnoses Diagnosis Chronic anemia- Primary Anemia, unspecified documented in this encounter Care Teams Fiscal Accountant Relationship Specialty Start Date End Date Rinku Beasley MD [address] [place] [phone] PCP - General Internal Medicine 05/22/23 documented as of this encounter
--- OUTSIDE RECORDS SUMMARY | 2024-10-06 05:35 | XMS_ITS | Encounter Summary ---
Author Organization [facility] Address [address] [place] [address] Care Team Providers Care Toy Mechanic Name Role Phone Rinku Beasley MD Primary Care Provider [phone] Reason for Visit * Auth/Cert (Routine) Specialty Diagnoses / Procedures Referred By Contac t Referred To Contact Diagnoses Atrial fibrillation (CMS/HCC) (HCC) DRUG LOAD Procedures NA Referral ID Status Reason Start Date Expiration Date Visits Re quested Visits Authorized [id number] 1 1 Encounter Details Date Type Department Care Team (Late st Contact Info) Description 11/22/2023 7:46 AM SUPERVISOR CONTINUOUS WELD PIPE MILL Anesthesia Event [facility] [address] [place] [address] Horace Mckinnon MD [address] [place] [address] Meaghan Evans CRNA [address] [place] [address] Anesthesia Record Procedure Summary Procedure Name Responsible Anesthesiologist Anesthesia Start Time Anesthesia Stop Time CARDIOVERSION [id number] Horace Mckinnon MD 4 0746 11/22/23 0758 Events Date Time Event Comment 11/22/2023 0746 An Start 0748 An Start Data 0750 Start Supplemental O2 0752 An Induction The patient was reevaluated immediately before moderate or deep sedation use and before anesthesia induction. 0752 Anesthesia Ready 0754 Cardioversion 200 J x1 0758 an stop data 0758 Handoff to RN I completed my handoff to the receiving nurse during which we: 1. Patient identified 2. Responsible provider identified 3. Pertinent medical history reviewed 4. Procedure type and surgical course discussed 5. Intraoperative anesthetic management and any significant issues discussed 6. Expectations and concerns for postop period discussed 7. Questions solicited from receiving nurse 8. Patient disposition at the time of handoff: No value filed. 0758 An Stop Meds Name Total propofol 60 mg sodium chloride 0.9% infusion 50 mL * Agents Name O2 * Blood No blood administrations on file. Lines, Drains, and Airways Type Details Placement Removal Peripheral IV Placement Date: 10/25 04/15; Placement Time: 2300; Catheter Size: 20 G; Orientation: Distal, Left, Posterior; Location: Forearm; Site Prep: Chlorhexidine; Insertion Attempts: 2; Removal Date: 11/22/23; Removal Time: 0756 (removed via procedure documentation) 11/19/23 2300 by Lillian Wooten RN 11/22/23 0756 by Sebastián Davis CRNA Peripheral IV Placement Date: 10/16; Placement Time: 0756 (created via procedure documentation); Catheter Size: 22 G; Orientation: Right; Location: Hand; Site Prep: Chlorhexidine; Insertion Attempts: 1; Removal Date: 11/22/23; Removal Time: 1247; Removal Reason: Discharge 11/22/23 0756 by Sebastián Davis CRNA 11/22/23 1247 by Tiana [place] RN documented in this encounter Social History Tobacco Use Types Packs/Day Years Used Date Smoking Tobacco: Never Smokeless Tobacco: Never Alcohol Use Standard Drinks/Week Comments Never 0 (1 standard drink = 0.6 oz pur e alcohol) AUDIT-C Answer Date Recorded Q1: How often do you have a drink containing alcohol? Never 11/22/2023 Q2: How many drinks containi ng alcohol do you have on a typical day when you are drinking? Patient does not drink Q3: How often do you have si x or more drinks on one occasion? Never 11/22/2023 Personal Safety Answer Date Recorded Have you ever been in or are you currently in a harmful physical or emotional relationship or is someone making you feel afraid or unsafe? Denies 11/19/2023 Comments No Sex and Gender Information Value Date Recorded Sex Assigned at Not on file Legal Sex Female 12:33 AM SUPERVISOR CONTINUOUS WELD PIPE MILL Gender Identity Not on file Sexual Orientation Not on file documented as of this encounter OR Notes * Anesthesia Preprocedure Evaluation - Horace Mckinnon MD - 11/22/2023 9:03 AM CST Images from the original note were not included. Anesthesia Evaluation Lluvia Castaneda is a 73 y.o. female CARDIOVERSION [id number] Pre-Op Diagnosis Codes: * Atrial fibrillation, unspecified type ([facility]) [I48.91] Patient Active Problem List Diagnosis Date Noted Paroxysmal atrial fibrillation (CMS/HCC) ([facility]) 07/11/2021 Atrial fibrillation (CMS/HCC) ([facility]) 11/19/2023 Essential hypertension 11/19/2023 Morbid obesity with BMI of 40.0-44.9, adult ([facility]) 11/14/2023 TAZ on CPAP 07/18/2023 Nonrheumatic mitral valve regurgitation 07/18/2023 Class 2 obesity with body mass index (BMI) of 38.0 to 38.9 in adult 05/25/2021 Past Medical History: Diagnosis Date Arrhythmia Hypertension History reviewed. No pertinent surgical history. OB History No obstetric history on file. Allergies Allergen Reactions Hydrocodone-Acetaminophen Hives, Itching and Rash Red Dye Rash Itching hives rash, Taking? Last Dose Start Date End Date Provider acetaminophen (TYLENOL) 325 mg tablet -- -- -- ProviderCristobal MD acidophilus-pectin, citrus 100 million cell-10 mg capsule -- -- -- ProviderCristobal MD azelastine (ASTELIN) 137 mcg (0.1 %) nasal spray -- 04/27/22 -- Cristobal Centeno MD cholecalciferol (VITAMIN D-3) 96428 unit capsule -- -- -- Cristobal Centeno MD cranberry fruit extract (CRANBERRY ORAL) -- -- -- Cristobal Centeno MD diphenhydrAMINE (BENADRYL) 25 mg capsule -- -- -- Cristobal Centeno MD Eliquis 5 mg tablet -- 05/04/21 -- Cristobal Centeno MD fluticasone propionate (FLONASE) 50 mcg/actuation nasal spray -- -- -- Cristobal Centeno MD metoprolol XL (TOPROL-XL) 50 mg extended release tablet -- 11/13/23 11/12/24 Idris Rosas MD PhD Take 1 tablet (50 mg total) by mouth daily [id number]-zhqdbzjy-[id number] tablet -- -- -- Cristobal Centeno MD omeprazole (PriLOSEC) 40 mg capsule -- -- -- Cristobal Centeno MD spironolactone (ALDACTONE) 50 mg tablet -- 04/23/22 -- Cristobal Centeno MD TURMERIC ORAL -- -- -- Cristobal Centeno MD Current Facility-Administered Medications: acetaminophen (TYLENOL) tablet 650 mg, 650 mg, oral, Q4H PRN, 650 mg at 11/22/23900 apixaban (ELIQUIS) tablet 5 mg, 5 mg, oral, Q12H HERMAN, 5 mg at 11/22/23900 Carrier Fluids for Secondary Infusion - 0.9% Sodium Chloride, 30 mL, intravenous, PRN diphenhydrAMINE (BENADRYL) tab/cap 25 mg, 25 mg, oral, Nightly PRN, 25 mg at 11/21/232212 dofetilide (TIKOSYN) capsule 125 mcg, 125 mcg, oral, BID, 125 mcg at 11/22/23 0704 influenza quadrivalent [id number] (FLUZONE HIGH DOSE) 240 mcg/0.7 mL vaccine (HIGH DOSE age 65 yearsand up) 0.7 mL, 0.7 mL, intramuscular, During hospitalization metoprolol XL (TOPROL-XL) extended release tablet 100 mg, 100 mg, oral, Daily, 100 mg at 11/22/[address] (PROTONIX) extended release tablet 40 mg, 40 mg, oral, Daily, 40 mg at 11/22/23900 ramelteon (ROZEREM) tablet 8 mg, 8 mg, oral, Nightly PRN senna-docusate (PERICOLACE) 8.6-50 mg per tablet 1 tablet, 1 tablet, oral, BID PRN sodium chloride 0.9% flush 0.5-20 mL, 0.5-20 mL, intra-catheter, Q8H HERMAN, 10 mL at 11/21/232009 sodium chloride 0.9% flush 0.5-20 mL, 0.5-20 mL, intra-catheter, PRN sodium chloride 0.9% infusion, 30 mL/hr, intravenous, Continuous, Stopped at 11/22/23 0754 spironolactone (ALDACTONE) tablet 50 mg, 50 mg, oral, Daily, 50 mg at 11/22/23 0902 Social History Tobacco Use Smoking Status Never Smokeless Tobacco Never Alcohol Use: Not At Risk (11/22/2023) AUDIT-C Frequency of Alcohol Consumption: Never Average Number of Drinks: Patient does not drink Frequency of Binge Drinking: Never Substance and Sexual Activity Drug Use Never Family History Problem Relation Age of Onset No Known Problems Mother No Known Problems Father Vitals: 11/22/23 0820 11/22/23 0825 11/22/23 0850 BP: 115/69 132/82 119/78 Pulse: 57 54 55 Resp: 14 16 16 Temp: SpO2: 96% 96% 98% PT: 11/19/2023: 14.2 sec (H) INR: 11/19/2023: 1.25 (H) APTT: 11/19/2023: 39 sec (H) Hgb A1C: No results found for requested labs within last 30 days. CBC RBC: 11/22/2023: 3.95 M/cumm RDW: No results found for requested labs within last 30 days. MCHC: 11/22/2023: 32.5 g/dL MCH: 11/22/2023: 28.9 pg MCV: 11/22/2023: 88.9 fL Hct: 11/22/2023: 35.1 % (L) Hgb: 11/22/2023: 11.4 g/dL (L) WBC: 11/22/2023: 10.1 K/cumm (H) MPV: 11/22/2023: 9.5 fL Platelets: 11/22/2023: 381 K/cumm RDW CV: 11/22/2023: 13.1 % RDW Sd: 11/22/2023: 42.4 fL BMP Glucose: 11/22/2023: 93 mg/dL Calcium: 11/22/2023: 9.3 mg/dL Sodium: 11/22/2023: 140 mmol/L Potassium: 11/22/2023: 4.3 mmol/L CO2: 11/22/2023: 25 mmol/L Chloride: 11/22/2023: 106 mmol/L BUN: 11/22/2023: 19 mg/dL Creatinine: 11/22/2023: 1.09 mg/dL DOS Physical Exam Medical history, medications, and allergies reviewed. Attestation: This PAT evaluation Airway Exam: Mallampati: II Cervical ROM: FROM TM distance: 3 Cardiovascular Exam: Rate: regular Rhythm: regular Pulmonary Exam: LCTA EENT Exam: trachea midline Dental Exam: Appears intact Skin Exam: Skin is warm. Capillary refill is < 3 seconds. Abdominal Exam: Abdomen is soft. Anterior Fontanelles: Fontanelles are flat. Current state: Patient's current state is cooperative. Lines/Drains/Tubes/Devices Lines in situ: Respiratory devices: Neuro devices: Anesthesia Plan ASA 3 My patient is approved for the Anesthesia Controlled Medication protocol when under care of a VISUAL DESIGN LEAD Planned anesthesia: MAC Postoperative Plan: No plan for postoperative opioid use. No postoperative mechanical ventilation intended. Patient's planned disposition post procedure is Outpatient. Informed Consent: Discussed plan with VISUAL DESIGN LEAD. Anesthesia plan and risks discussed with patient. Consent and Attending signature: I and/or my designee have discussed the anesthesia plan, benefits, possible alternatives, parental presence at time of induction (if indicated), and clinically relevant risks that may include dental injury, unintentional awareness, and/or other complications. The patient and/or parent/legal guardian understand, and agree to proceed. All questions answered. RVISOR CONTINUOUS WELD PIPE MILL RVISOR CONTINUOUS WELD PIPE MILL * Anesthesia Postprocedure Evaluation - Sebastián Davis CRNA - 11/22/2023 7:58 AM CST Patient: Lluvia Castaneda Procedure Summary Date: 11/22/23 Room / Location: [facility] / [facility] [employer] Anesthesia Start: 745 Anesthesia Stop: 757 Procedure: CARDIOVERSION 89719 Diagnosis: Atrial fibrillation, unspecified type (HCC) (Atrial fibrillation, unspecified type (HCC) [I48.91]) Providers: Hari Wen MD PhD Responsible Provider: Horace Mckinnon MD Anesthesia Type: MAC ASA Status: Not recorded Anesthesia Type: MAC Last vitals BP 163/91 Pulse 97 Temp 36.3 ??C (97.3 ??F) (Oral) Resp 12 SpO2 97% Anesthesia Post Evaluation Patient location during evaluation: PACU Patient participation: complete - patient participated Level of consciousness: arouses secondary connector armature Pain score: 0 Pain management: adequate Airway patency: adequate and patent Cardiovascular status: acceptable and hemodynamically stable Respiratory status: acceptable and room air Hydration status: euvolemic Pt is: normothermic Nausea/Vomiting status: none Comments: Patient taken to [facility] holding with plaster machine operator. Report given to receiving RN after criticalhookup completed. RN states she has no further questions at this time No notable events documented. Cosigned by Horace Mckinnon MD at 11/22/2023 9:03 AM SUPERVISOR CONTINUOUS WELD PIPE MILL RVISOR CONTINUOUS WELD PIPE MILL RVISOR CONTINUOUS WELD PIPE MILL * Anesthesia Procedure Notes - Sebastián Davis CRNA - 11/22/2023 7:56 AM CSTAssociated Order(s): Peripheral IV Catheter Peripheral IV Catheter Patient location: OR Staff: Supervising provider: Horace Mckinnon MD Placed by: VISUAL DESIGN LEAD: Meaghan Evans CRNA Preprocedure prep: Prep solution: chlorhexadine PPE: gloves PIV line: Laterality: right Site: hand Catheter size: 22 g Technique: anatomical landmarks, direct visualization and palpatation Procedure details: good blood return Number of attempts: 1 RVISOR CONTINUOUS WELD PIPE MILL documented in this encounter Plan of Treatment Not on file documented as of this encounter Procedures Procedure Name Priority Date/Time Associated Diagnosis Comments [place] AN PROCEDURE PLACEHOLDER Routine 11/22/2023 7:56 AM SUPERVISOR CONTINUOUS WELD PIPE MILL documented in this encounter Results * [place] AN PROCEDURE PLACEHOLDER (11/22/2023 7:56 AM SUPERVISOR CONTINUOUS WELD PIPE MILL) Narrative Sebastián Davis CRNA - 11/22/2023 7:56 AM SUPERVISOR CONTINUOUS WELD PIPE MILL Sebastián Davis CRNA ? 11/22/2023 ??7:56 AM Peripheral IV Catheter Patient location: OR Staff: Supervising provider: Horace Mckinnon MD Placed by: VISUAL DESIGN LEAD: Meaghan Evans CRNA Preprocedure prep: Prep solution: chlorhexadine PPE: gloves PIV line: Laterality: right Site: hand Catheter size: 22 g Technique: anatomical landmarks, direct visualization and palpatation Procedure details: good blood return Number of attempts: 1 us Horace Mckinnon MD ANESTHESIA ORDERABLES F inal Result documented in this encounter Visit Diagnoses Not on filedocumented in this encounter Administered Medications Inactive Administered Medications - up to 3 most recent administrations Medication Order MAR Action Action Date Dose Rate Site propofoL (DIPRIVAN) 10 mg/mL IV intravenous, As needed, Starting on Sat11/22/23 at 0753, Anesthesia Intra-op New Bag 11/22/2023 7:52 AM SUPERVISOR CONTINUOUS WELD PIPE MILL 60 mg sodium chloride 0.9% infusion 30 mL/hr, intravenous, Continuous, Starting on Sat11/22/23 at 0730 Rate/Dose Verify 11/22/2023 7:46 AM SUPERVISOR CONTINUOUS WELD PIPE MILL 30 mL/hr New Bag 11/22/2023 6:55 AM SUPERVISOR CONTINUOUS WELD PIPE MILL 30 mL/hr 30 mL/hr documented in this encounter Orders Medications Ordered That Kobe ht Not Have Been Administered Count Last Ordered Date First Ordered Date propofoL (DIPRIVAN) 10 mg/mL IV 1 4 documented in this encounter Care Teams Toy Mechanic Relationship Specialty Start Date End Date Rinku Beasley MD [address] [place] [address] PCP - General 09/08/19 documented as of this encounter
--- OUTSIDE RECORDS SUMMARY | 2024-10-06 05:35 | XMS_ITS | Clinical Summary ---
Author Organization [facility] Address [address] [place] [address] Care Team Providers Care K 9 Police Officer Name Role Phone Rinku Beasley MD Primary Care Provider + [phone] Allergies Active Allergy Reactions Criticality Noted Date Comments Hydrocodone-Acetaminophen Hives,Itching,Rash High Red Dye Rash Medium 06/01/2019 Medications acetaminophen (TYLENOL) 325 mg tablet Take 500 mg by mouth daily Active omeprazole (PriLOSEC) 40 mg capsule Take 1 capsule (40 mg total) by mouth daily Active Eliquis 5 mg tablet TAKE 1 TABLET (5 MG) BY ORAL ROUTE 2 TIMES PER DAY 1 Active cranberry fruit extract (CRANBERRY ORAL) Take 500 mg by mouth daily Active TURMERIC ORAL Take 500 mg by mouth daily Active diphenhydrAMINE (BENADRYL) 25 mg capsule Take 1 tablet/capsule (25 mg total) by mouth nightly as needed for itching Active spironolactone (ALDACTONE) 50 mg tablet Take 1 tablet (50 mg total) by mouth daily 2 Active multivitamin-mine rals-lutein tablet Take 1 tablet by mouth daily Active fluticasone propionate (FLONASE) 50 mcg/actuation nasal spray Administer 2 sprays into each nostril daily Active azelastine (ASTELIN) 137 mcg (0.1 %) nasal spray Administer 1 spray into each nostril daily 2 Active metoprolol XL (TOPROL-XL) 100 mg 24 hr tablet Take 0.5 tablets (50 mg total) by mouth daily 4 Active cyanocobalamin, vitamin B-12, 5,000 mcg tablet, sublingual Place under the tongue every other day Active ferrous sulfate 325 mg (65 mg of elemental iron) tabletIndications :Iron Deficiency Anemia Take 1 tablet (325 mg total) by mouth daily with breakfast Active dofetilide (TIKOSYN) 125 mcg capsuleIndication s:Cardioversion of Atrial Fibrillation TAKE 1 CAPSULE (125 MCG TOTAL) BY MOUTH 2 (TWO) TIMES A DAY 180 capsule 2 4 Active Active Problems Problem Noted Date Diagnosed Date High risk medication use 06/02/2024 Atrial fibrillation (CMS/HCC) 11/19/2023 Assessment & Plan (11/21/2023 10:19 AM PLUG DRILL OPERATOR): History of symptomatic atrial fibrillation and rapid ventricular response with moderate LAE. Prior successful trial of amiodarone and reportedly did poorly in the past with flecainide. Now directly admitted for Tikosyn loading. -baseline Qtc on 12 lead ECG was 449 -started Tikosyn 250 mcg BID -ECG 2 hours after each dose Tikosyn -remains Afib w/ rate 100s-120s on tele -Qtc after 1st dose Tikosyn was 497, after 2nd dose Qtc was 507--discussed with EP, decrease Tikosyn to 125 mcg BID--Qtc on last ECG 483 -continue metoprolol 100 mg daily -continue Eliquis 5 mg BID -TSH WNL -telemetry Assessment & Plan (11/20/2023 3:13 PM PLUG DRILL OPERATOR): History of symptomatic atrial fibrillation and rapid ventricular response with moderate LAE. Prior successful trial of amiodarone and reportedly did poorly in the past with flecainide. Now directly admitted for Tikosyn loading. -baseline Qtc on 12 lead ECG was 449 -started Tikosyn 250 mcg BID -ECG 2 hours after each dose Tikosyn -remains Afib w/ rate 90s-110s on tele -Qtc after 1st dose Tikosyn was 497, this AM after 2nd dose Qtc was 507--discussed with EP, decrease Tikosyn to 125 mcg BID -continue metoprolol 100 mg daily -continue Eliquis 5 mg BID -TSH WNL -telemetry Essential hypertension 11/19/2023 Assessment & Plan (11/21/2023 10:19 AM PLUG DRILL OPERATOR): Normotensive on admission -continue home spironolactone 50 mg daily Assessment & Plan (11/20/2023 3:11 PM PLUG DRILL OPERATOR): Normotensive on admission -continue home spironolactone 50 mg daily Morbid obesity with BMI of 40.0-44.9, adult 10/25 TAZ on CPAP 07/18/2023 Assessment & Plan (11/21/2023 10:19 AM PLUG DRILL OPERATOR): -continue evening CPAP Assessment & Plan (11/19/2023 9:10 PM PLUG DRILL OPERATOR): -continue evening CPAP Nonrheumatic mitral valve regurgitation 07/18/20 23 Paroxysmal atrial fibrillation (CMS/HCC) 021 Class 2 obesity with body ma ss index (BMI) of 38.0 to 38.9 in adult 05/25/2021 Assessment & Plan (11/21/2023 10:19 AM PLUG DRILL OPERATOR): Contributing towards TAZ and AF -encouraged weight loss and caloric restriction Assessment & Plan (11/19/2023 9:11 PM PLUG DRILL OPERATOR): Contributing towards TAZ and AF -encouraged weight loss and caloric restriction Encounters Date Type Department Care Team Description 10/01/2024 Orders Only [facility] Idris Rosas MD PhD 10/01/[address] [facility] Cardiology [address] [place] [address] Advanced Medicine 8th [place] [address] [place] [address] Idris Rosas MD PhD 08/24/[address] [facility] Cardiology [facility] Advanced Medicine 8th [place] [address] [place] [address] Idris Rosas MD PhD Paroxysmal atrial fibrillation (CMS/HCC) (HCC) (Primary Dx); High risk medication use 08/17/[address] [facility] Cardiology [facility] Advanced Medicine 8th [place] [address] [place] [address] Idris Rosas MD PhD Paroxysmal atrial fibrillation (CMS/HCC) (HCC) (Primary Dx); High risk medication use 08/17/[address] [facility] Cardiology [address] [facility] 8th [place] [address] [place] [address] Cheryl Palma 08/10/2024 10:45 AM PLUG DRILL OPERATOR Office Visit [facility] Cardiology at [address] [place] [address] Saul Tee MD Paroxysmal atrial fibrillation (CMS/HCC) (HCC) (Primary Dx) from Last 3 Months Immunizations Name Administration Dates Next Due Influenza, Quadrivalent, Hig h Dose, Preservative Free, Intrr 11/22/2023(Deferred: Patient Refused) Medical History Medical History Date Comments Hypertension Arrhythmia Family History Medical History Relation Name Comments No Known Problems Father No Known Problems Mother Relation Name Status Comments Brother 5 brothers with no heart disease, one passed from cancer Father (Age 39) cancer Mother (Age 78) car accide nt Sister Alive thyroid disease Social History Tobacco Use Types Packs/Day Years [...] on file Legal Sex Female 12:33 AM PLUG DRILL OPERATOR Gender Identity Not on file Sexual Orientation Not on file Obstetrics History Last Filed Vital Signs Vital Sign Reading Time Taken Comments Blood Pressure 138/80 08/10/2024 10:25 AM PLUG DRILL OPERATOR Pulse 77 08/10/2024 10:25 AM PLUG DRILL OPERATOR Temperature 36.3 ??C (97.3 ??F) 11/22/2023 6:52 AM CS T Respiratory Rate 16 11/22/2023 8:50 AM PLUG DRILL OPERATOR Oxygen Saturation 94% 08/10/2024 10:25 AM PLUG DRILL OPERATOR Inhaled Oxygen Concentration - - Weight 99.3 kg (219 lb) 08/10/2024 10:25 AM PLUG DRILL OPERATOR Height 160 cm (5' 3 ) 08/10/2024 10:25 AM PLUG DRILL OPERATOR Body Mass Index 38.79 08/10/2024 10:25 AM PLUG DRILL OPERATOR Plan of Treatment Health Maintenance Due Date Last Done Comments Breast Cancer Screening-Mammogram 1952 Colon Cancer Screening-Colonoscopy 1950 Depression Screening 1950 Hepatitis C Screening 1950 Osteoporosis Screening-Bone Density Scan 1952 Hepatitis B Screening 1970 Zoster Vaccine (2 of 3) 03/31/2014 02/03/2014 Well Visit 65+ 2017 Influenza Vaccine (#1) 2024 07/16/2019, 2015 Fall Risk Assessment 11/21/2024 11/22/2023 DTaP/Tdap/Td Vaccine (3 - Td or Tdap) 05/23/2026 05/23/2016, 03/17/2009 Pneumococcal vaccine 65+ Completed 018, 07/05/2017, 12/09/2014, Additional history exists Medical Devices Implanted Type Area Insurance Underwriter Device Identifier Shelf Expiration Date Model / Serial / Lot Nail Nail N/A: Back Description:L4-L5 Procedures Procedure Name Priority Date/Time Associated Diagnosis Comments CARDIOLOGY DOCUMENT SCAN 10/01/2024 8:07 AM PLUG DRILL OPERATOR from Last 3 Months Results * Cardiology Document Scan (10/01/2024 8:07 AM PLUG DRILL OPERATOR) Anatomical Region Laterality Modality Other Idris Rosas MD PhD CV CARDIAC SERVICES PROCEDURES Final Result from Last 3 Months Insurance MEDICARE AETNA SENIOR SUPPLEMENT MEDICARE MEDICARE AETNA SENIOR SUPPLEMENT Advance Directives For more information, please contact: [phone] * Full Code (Latest Code Status on File) Date Activated Date Inactivated Comments 11/19/2023 9:00 PM 11/22/2023 6:04 PM Care Teams K 9 Police Officer Relationship Specialty Start Date End Date Rinku Beasley MD [address] [place] [address] PCP - General 09/08/19
--- OUTSIDE RECORDS SUMMARY | 2024-10-06 05:35 | XMS_ITS | Encounter Summary ---
Author Organization [facility] Address [address] [place] [address] Care Team Providers Care System Integration Engineer Name Role Phone Rinku Beasley MD Primary Care Provider + Encounter Details Date Type Department Care Team (Late st Contact Info) Description 09/04/2023 External Device Data STL ABSTRACTION Provider, Abstract [...] st Contact Info) Description 11/09/2024 1:15 PM TREE TRIMMER HELPER Office Visit [facility] Oncology and Hematology - [place] [address] [place] [address] [facility] [address] [place] [address] Jacinto Arzate MD [address] [facility] [address] [place] [address] documented as of this encounter Visit Diagnoses Not on filedocumented in this encounter Care Teams System Integration Engineer Relationship Specialty Start Date End Date Rinku Beasley MD [address] [place] [address] PCP - General Internal Medicine 05/22/23 documented as of this encounter
--- OUTSIDE RECORDS SUMMARY | 2024-10-06 05:35 | XMS_ITS | Encounter Summary ---
Author Organization [facility] Address [address] [place] [address] Care Team Providers Care Varsity Baseball Coach Name Role Phone Rinku Beasley MD Primary Care Provider + Encounter Details Date Type Department Care Team (Late st Contact Info) Description 12/24/2023 External Device Data STL ABSTRACTION Provider, Abstract [...] st Contact Info) Description 11/09/2024 1:15 PM STRUCTURAL ANALYSIS ENGINEER Office Visit [facility] Oncology and Hematology - [place] [address] [place] [address] [facility] [address] [place] [address] Jacinto Arzate MD [address] [facility] [address] [place] [address] documented as of this encounter Visit Diagnoses Not on filedocumented in this encounter Care Teams Varsity Baseball Coach Relationship Specialty Start Date End Date Rinku Beasley MD [address] [place] [address] PCP - General Internal Medicine 05/22/23 documented as of this encounter
--- OUTSIDE RECORDS SUMMARY | 2024-10-06 05:35 | XMS_ITS | Encounter Summary ---
Author Organization [facility] Address [address] [place] [address] Care Team Providers Care Power Shovel Operator Name Role Phone Rinku Beasley MD Primary Care Provider [phone] Reason for Referral * Procedure (Routine) - Canceled Specialty Diagnoses / Procedures Referred By Contac t Referred To Contact Cardiology Diagnoses Paroxysmal atrial fibrillation (CMS/HCC) (HCC) Saul Tee MD [address] [place] [address] [place] [address] Phone: tel: fax: [facility] Cardiology [address] [place] [address] Phone: tel: fax: Referral ID Status Reason Start Date Expiration Date Visits Requested Visits Authorized [id number] Canceled Specialty Services Required 09/30/2023 10/29/2024 1 1 Scheduling Instructions PROCEDURE/TEST ORDERED: CV with anesthesia LOCATION: DATE OF SERVICE:10/21 INSURANCE: Medicare/[place] DIAGNOSIS:Afib ORDERING PROVIDER:CARLI ADDITIONAL DETAILS: Question Answer Please select the performing region: [facility] [[id number]] Please select the performing department: [facility] MRYVL [[id number]] # of visits: 1 ANDROID DEVELOPER Encounter Details Date Type Department Care Team (Late st Contact Info) Description 09/17/2023 Telephone [facility] Cardiology [address] [place] [address] Saul Tee MD [address] [facility] [address] [place] [address] Social History Tobacco Use Types Packs/Day Years Used Date Smoking Tobacco: Never Smokeless Tobacco: Never Alcohol Use Standard Drinks/Week Comments Never 0 (1 standard drink = 0.6 oz pur e alcohol) AUDIT-C Answer Date Recorded Q1: How often do you have a drink containing alc ohol? Never 11/17/2019 Average Number of Drinks Not on file 020 Frequency of Binge Drinking Not on file 10/25 Personal Safety Answer Date Recorded Getting School Help Needed Not on file 09/04 Comments Unknown Sex and Gender Information Value Date Recorded Sex Assigned at Not on file Legal Sex Female 12:33 AM JAVA ANDROID DEVELOPER Gender Identity Not on file Sexual Orientation Not on file documented as of this encounter Miscellaneous Notes * Addendum Note - Ngoc Owusu RN - 09/30/2023 12:15 PM CSTAddended by: NGOC OWUSU on: 09/30/2023 12:15 PM Modules accepted: Orders ANDROID DEVELOPER * Telephone Encounter - Ngoc Owusu RN - 09/30/2023 12:13 PM JAVA ANDROID DEVELOPER Spoke with pt, pt advised CV is scheduled for 10/21 at 1200, arrival at 1030. Instructions reviewed,written instructions mailed. Pt verbalizes understanding. Pt advised not to miss any doses of Eliquis and to call if she does. ANDROID DEVELOPER * Telephone Encounter - Ngoc Owusu RN - 09/27/2023 1:36 PM JAVA ANDROID DEVELOPER Spoke with pt, advised that CV is planned for 10/21 but we do not yet have a set time. Will update pt with time once time has been set. Pt verbalizes understanding. ANDROID DEVELOPER * Telephone Encounter - Nany Pinto - 09/27/2023 11:58 AM CST Pt returned call to discuss echo results. Reviewed message from CT regarding results. Pt verbalizedunderstanding. Pt requesting call to discuss what time and instructions for CV scheduled on 10/21. Contact: ANDROID DEVELOPER * Telephone Encounter - Ngoc Owusu RN - 09/24/2023 1:48 PM JAVA ANDROID DEVELOPER Spoke with pt, will try and schedule pt for 10/21 since pt is available that day as well as MJF availability. ANDROID DEVELOPER * Telephone Encounter - Nikki Palomo - 09/24/2023 1:27 PM CST Pt returned call for Ngoc, states she is unable to do 10/14. Pt requesting a call back to further discuss. Pt also states her VM does not work at the moment. Contact:[phone] ANDROID DEVELOPER ANDROID DEVELOPER * Telephone Encounter - Ngoc Owusu RN - 09/24/2023 12:36 PM JAVA ANDROID DEVELOPER LM on VM with pt, tentative date for CV with anesthesia 10/14. Do not have a time yet, will update pt again once I have a confirmed date and time for CV with anesthesia. ANDROID DEVELOPER * Telephone Encounter - Ngoc Owusu RN - 09/18/2023 12:03 PM JAVA ANDROID DEVELOPER Russ Burdick in [facility], unable to schedule CV with anesthesia until 09/27. ANDROID DEVELOPER * Telephone Encounter - Ngoc Owusu RN - 09/17/2023 4:19 PM JAVA ANDROID DEVELOPER Per MJF, schedule pt for CV for A-fib with anesthesia. Will call to schedule in AM. Pt given written instructions and written instructions reviewed with pt. Pt verbalizes understanding and aware thatI will be calling with confirmed date and time. ANDROID DEVELOPER documented in this encounter Plan of Treatment Scheduled Referrals Name Type Priority Associated Diagnoses Orde r Schedule Ambulatory referral to Cardiology Outpatient Referral Routine Paroxysmal atrial fibrillation (CMS/HCC) (HCC) Expected: 10/14/2023 (Approximate), Expires: 09/30/2024 documented as of this encounter Visit Diagnoses Diagnosis Paroxysmal atrial fibrillation (CMS/HCC) (HCC)- Primary Atrial fibrillation documented in this encounter Care Teams Power Shovel Operator Relationship Specialty Start Date End Date Rinku Beasley MD [address] [place] [address] PCP - General 09/08/19 documented as of this encounter
--- OUTSIDE RECORDS SUMMARY | 2024-10-06 05:35 | XMS_ITS | Encounter Summary ---
Author Organization [facility] Address [address] [place] [address] Phone Care Team Providers Care Workforce Advisor Name Role Phone Rinku Beasley MD Primary Care Provider + [phone] Reason for Visit * Reason Onset Date Comments New Patient 10/28/2023 Encounter Details Date Type Department Care Team (Late st Contact Info) Description 10/28/2023 Telephone [facility] Cardiology [address] [facility] 8th [place] [address] [place] [address] Tish Ladd New Patient Social History Tobacco Use Types Packs/Day Years [...] file Legal Sex Female 12:33 AM SUPERVISOR LEAF SPRING FABRICATION Gender Identity Not on file Sexual Orientation Not on file documented as of this encounter Miscellaneous Notes * Telephone Encounter - Jay Jay Chang - 10/28/2023 10:50 AM CST 11/13/23 ARNALDO SANTIAGO RVISOR LEAF SPRING FABRICATION * Telephone Encounter - Tish Ladd - 10/28/2023 9:29 AM CST Diagnosis/Reason for Appointment: Paroxysmal atrial fibrillation (CMS/HCC) (HCC) I34.0 (ICD-10-CM) - Nonrheumatic mitral valve regurgitation I48.19 (ICD-10-CM) - Other persistent atrial fibrillation (HCC) I10 (ICD-10-CM) - Essential (primary) hypertension Referring Physician: DR. DONOVAN Ref Ph: If Referring MD is not PCP, list specialty: Triage Questions Yes No Who/Where/When/Notes Have you ever been diagnosed with cancer, or undergone cancer treatments? [] [x] If 'Yes', Schedulefirst available with Cardio-Oncology If yes where were you treated? Have you ever seen a Evs Attendant in an office setting? [x] [] DR. DONOVAN LAST SEEN LAST WEEK IF SCHEDULING PATIENT WITH ARCHER Have you had a baby in the last year or are you ? [] [] Have you had heart or blood pressure problems during a previous ? [] [] Dr. Kady Tucker Patients only: Are you a hemodialysis or peritoneal dialysis patient? (If yes then patient must be referred from another MD, DO NOT SCHEDULE) [] [] Patient History Questions Yes No Where/When/Notes Have you EVER been hospitalized for ANY cardiac issue? [] [x] Have you ever had any cardiac testing, imaging, or procedures? (Testing - echo, EKG, stress) (Imaging - Cardiac MRI, CT or calcium scoring) (Procedure - Ablation, Cardioversion, CABG) [x] [] EKG, CARDIOVERSION, TASHA, LAST WEEK Have you ever had a sleep study? [x] [] Do you have a device? If yes what type? (Pacemaker, Defibrillator, Implanted Loop Recorder) [] [x] If yes, where and when was device put in? Bed Setter? ([employer], [employer], [employer]) Appointment Date: Provider: Location: [] Confirm appt date, time, provider and location. [] Advise pt to arrive 15-20 min early. [] Advise patient to bring medications/list, photo ID and insurance card [] Advise of New Patient Packet being mailed to them. RVISOR LEAF SPRING FABRICATION documented in this encounter Plan of Treatment Not on file documented as of this encounter Visit Diagnoses Not on filedocumented in this encounter Care Teams Workforce Advisor Relationship Specialty Start Date End Date Rinku Beasley MD [address] [place] [address] PCP - General 09/08/19 documented as of this encounter
--- OUTSIDE RECORDS SUMMARY | 2024-10-06 05:35 | XMS_ITS | Encounter Summary ---
Author Organization [facility] Address [address] [place] [address] Care Team Providers Care Movers Name Role Phone Rinku Beasley MD Primary Care Provider + Encounter Details Date Type Department Care Team (Late st Contact Info) Description 09/03/2023 External Device Data STL ABSTRACTION Provider, Abstract [...] st Contact Info) Description 11/09/2024 1:15 PM SUPERVISOR HARVESTING Office Visit [facility] Oncology and Hematology - [place] [address] [place] [address] [facility] [address] [place] [address] Jacinto Arzate MD [address] [facility] [address] [place] [address] documented as of this encounter Visit Diagnoses Not on filedocumented in this encounter Care Teams Movers Relationship Specialty Start Date End Date Rinku Beasley MD [address] [place] [address] PCP - General Internal Medicine 05/22/23 documented as of this encounter
--- OUTSIDE RECORDS SUMMARY | 2024-10-06 05:35 | XMS_ITS | Encounter Summary ---
Author Organization [facility] Address [address] [place] [address] Care Team Providers Care General Technician Name Role Phone Rinku Beasley MD Primary Care Provider + Encounter Details Date Type Department Care Team (Late st Contact Info) Description 02/25/2024 External Device Data STL ABSTRACTION Provider, Abstract [...] st Contact Info) Description 11/09/2024 1:15 PM STEEL FABRICATING SUPERVISOR Office Visit [facility] Oncology and Hematology - [place] [address] [place] [address] [facility] [address] [place] [address] aJcinto Arzate MD [address] [facility] [address] [place] [address] documented as of this encounter Visit Diagnoses Not on filedocumented in this encounter Care Teams General Technician Relationship Specialty Start Date End Date Rinku Beasley MD [address] [place] [address] PCP - General Internal Medicine 05/22/23 documented as of this encounter
--- OUTSIDE RECORDS SUMMARY | 2024-10-06 05:35 | XMS_ITS | Encounter Summary ---
Author Organization [facility] Healthcare Address [address] [place] [address] Care Team Providers Care Partner Name Role Phone Rinku Beasley MD Primary Care Provider [phone] Encounter Details Date Type Department Care Team (Late st Contact Info) Description 08/01/2023 Telephone [facility] Cardiology [address] [facility] [address] [place] [address] Tara Thurman NP [address] [facility] [address] [place] [address] Social History Tobacco Use Types Packs/Day Years [...] of Binge Drinking Not on file 10/25 Comments Unknown Sex and Gender Information Value Date Recorded Sex Assigned at Not on file Legal Sex Female 12:33 AM LITIGATION SUPPORT ANALYST Gender Identity Not on file Sexual Orientation Not on file documented as of this encounter Miscellaneous Notes * Telephone Encounter - Svitlana Green RN - 08/02/2023 3:08 PM CST Message reviewed with pt. She voiced understanding and will stop amio now. Appt made to see F on 09.17 at 4 pm. GATION SUPPORT ANALYST * Telephone Encounter - Svitlana Green RN - 08/01/2023 4:20 PM CST Lm on vm per CT and requested call back to discuss scheduling. Per MJF, may add on to end of his day right before he leaves for vacation ( Sep 18- sep) GATION SUPPORT ANALYST * Telephone Encounter - Tara Thurman NP - 08/01/2023 3:48 PM LITIGATION SUPPORT ANALYST Please call the patient to let her know I got a phone call from Dr. Beasley. He is concerned she may develop lung problems from the amiodarone. I talked to Dr. Tee and Dr. Tee said it's ok for her to stop the amiodarone, and we can try another medication to treat her afib that won't affecther lungs. But first we need to let the amiodarone get out of her system, and this takes 4-6 weeks.Can we add her onto Dr. Tee's schedule on ? Because she is getting a new echo on . Thank you. GATION SUPPORT ANALYST documented in this encounter Plan of Treatment Not on file documented as of this encounter Visit Diagnoses Not on filedocumented in this encounter Care Teams Partner Relationship Specialty Start Date End Date Rinku Beasley MD [address] [place] [address] PCP - General 09/08/19 documented as of this encounter
--- OUTSIDE RECORDS SUMMARY | 2024-10-06 05:35 | XMS_ITS | Encounter Summary ---
Author Organization [facility] Address [address] [place] [address] Care Team Providers Care Fixed Wing Pilot Name Role Phone Rinku Beasley MD Primary Care Provider + Encounter Details Date Type Department Care Team (Late st Contact Info) Description 10/19/2023 External Device Data STL ABSTRACTION Provider, Abstract [...] st Contact Info) Description 11/09/2024 1:15 PM WINE MERCHANT Office Visit [facility] Oncology and Hematology - [place] [address] [place] [address] [facility] [address] [place] [address] Jacinto Arzate MD [address] [facility] [address] [place] [address] documented as of this encounter Visit Diagnoses Not on filedocumented in this encounter Care Teams Fixed Wing Pilot Relationship Specialty Start Date End Date Rinku Beasley MD [address] [place] [address] PCP - General Internal Medicine 05/22/23 documented as of this encounter
--- OUTSIDE RECORDS SUMMARY | 2024-10-06 05:35 | XMS_ITS | Encounter Summary ---
Author Organization [facility] Address [address] [place] [address] Care Team Providers Care Manager Ccu Name Role Phone Rinku Beasley MD Primary Care Provider + Encounter Details Date Type Department Care Team (Late st Contact Info) Description 05/05/2024 External Device Data STL ABSTRACTION Provider, Abstract [...] st Contact Info) Description 11/09/2024 1:15 PM BACKSIDE GRINDER Office Visit [facility] Oncology and Hematology - [place] [address] [place] [address] [facility] [address] [place] [address] Jacinto Arzate MD [address] [facility] [address] [place] [address] documented as of this encounter Visit Diagnoses Not on filedocumented in this encounter Care Teams Manager Ccu Relationship Specialty Start Date End Date Rinku Beasley MD [address] [place] [address] PCP - General Internal Medicine 05/22/23 documented as of this encounter
--- OUTSIDE RECORDS SUMMARY | 2024-10-06 05:35 | XMS_ITS | Encounter Summary ---
Author Organization [facility] Address [address] [place] [address] Care Team Providers Care Hospital Chaplain Name Role Phone Rinku Beasley MD Primary Care Provider + Encounter Details Date Type Department Care Team (Late st Contact Info) Description 11/26/2023 External Device Data STL ABSTRACTION Provider, Abstract [...] st Contact Info) Description 11/09/2024 1:15 PM DIETITIAN RESEARCH Office Visit [facility] Oncology and Hematology - [place] [address] [place] [address] [facility] [address] [place] [address] Jacinto Arzate MD [address] [facility] [address] [place] [address] documented as of this encounter Visit Diagnoses Not on filedocumented in this encounter Care Teams Hospital Chaplain Relationship Specialty Start Date End Date Rinku Beasley MD [address] [place] [address] PCP - General Internal Medicine 05/22/23 documented as of this encounter
--- OUTSIDE RECORDS SUMMARY | 2024-10-06 05:35 | XMS_ITS | Encounter Summary ---
Author Organization [facility] Address [address] [place] [address] Care Team Providers Care Commercial Trailer Truck Driver Name Role Phone Rinku Beasley MD Primary Care Provider + Encounter Details Date Type Department Care Team (Late st Contact Info) Description 01/14/2024 External Device Data STL ABSTRACTION Provider, Abstract [...] st Contact Info) Description 11/09/2024 1:15 PM EXPLOSIVE ORDNANCE DISPOSAL SPECIALIST Office Visit [facility] Oncology and Hematology - [place] [address] [place] [address] [facility] [address] [place] [address] Jacinto Arzate MD [address] [facility] [address] [place] [address] documented as of this encounter Visit Diagnoses Not on filedocumented in this encounter Care Teams Commercial Trailer Truck Driver Relationship Specialty Start Date End Date Rinku Beasley MD [address] [place] [address] PCP - General Internal Medicine 05/22/23 documented as of this encounter
--- OUTSIDE RECORDS SUMMARY | 2024-10-06 05:35 | XMS_ITS | Encounter Summary ---
Author Organization [facility] SAIDA Agrawal [facility] Address [address] [place] [address] Care Team Providers Care Lithographed Plate Inspector Name Role Phone Rinku Beasley MD Primary Care Provider + Encounter Details Date Type Department Care Team (Late st Contact Info) Description 08/19/[address] [facility] Oncology and Hematology - [place] [address] [place] [address] Jacinto Arzate MD [address] [place] [address] [employer] [address] [place] [address] Social History Tobacco Use Types Packs/Day Years [...] st Contact Info) Description 11/09/2024 1:15 PM STATION COOK Office Visit [facility] Oncology and Hematology - [place] [address] [place] [address] [place] [address] [place] [address] [employer] [address] [place] [address] documented as of this encounter Procedures Procedure Name Priority Date/Time Associated Diagnosis Comments METHYLMALONIC ACID Routine 08/12/2023 2:24 PM STATION COOK documented in this encounter Results * METHYLMALONIC ACID (08/12/2023 2:24 PM STATION COOK) Blood Jacinto Arzate MD CHEMISTRY ORDERABLES documented in this encounter Visit Diagnoses Not on filedocumented in this encounter Care Teams Lithographed Plate Inspector Relationship Specialty Start Date End Date Rinku Beasley MD [address] [place] [address] PCP - General Internal Medicine 05/22/23 documented as of this encounter
--- OUTSIDE RECORDS SUMMARY | 2024-10-06 05:35 | XMS_ITS | Encounter Summary ---
Author Organization [facility] Address [address] [place] [address] Care Team Providers Care Gear Machinist Name Role Phone Rinku Beasley MD Primary Care Provider [phone] Encounter Details Date Type Department Care Team (Late st Contact Info) Description 12/18/2023 Telephone [facility] Cardiology [address] [address] Saul Tee MD [address] [facility] [address] [place] [address] Social History Tobacco Use Types [...] on file Legal Sex Female 12:33 AM BUSINESS ANALYTICS DIRECTOR Gender Identity Not on file Sexual Orientation Not on file documented as of this encounter Miscellaneous Notes * Telephone Encounter - Yue Munson RN - 12/18/2023 4:13 PM CDT Called pt and LM on VM informed her we have clearance and she has been approved and already faxed back to [employer]. * Telephone Encounter - Nikki Palomo - 12/18/2023 3:54 PM CDT Pt requesting a call back to confirm whether or not our office has received her cardiac clearance request from [employer]. Contact:[phone] documented in this encounter Plan of Treatment Not on file documented as of this encounter Visit Diagnoses Not on filedocumented in this encounter Care Teams Gear Machinist Relationship Specialty Start Date End Date Rinku Beasley MD [address] [place] [address] PCP - General 09/08/19 documented as of this encounter
--- OUTSIDE RECORDS SUMMARY | 2024-10-06 05:35 | XMS_ITS | Encounter Summary ---
Author Organization [facility] SAIDA Agrawal [facility] Address [address] [place] [address] Care Team Providers Care Welder And Fitter Name Role Phone Rinku Beasley MD Primary Care Provider + Encounter Details Date Type Department Care Team (Late st Contact Info) Description 12/19/2023 Orders Only [facility] Oncology and Hematology - [place] [address] [place] [address] Jacinto Arzate MD [address] [place] [address] [employer] [address] [place] [address] Social History Tobacco Use Types Packs/Day [...] st Contact Info) Description 11/09/2024 1:15 PM EARLY INTERVENTIONIST Office Visit [facility] Oncology and Hematology - [place] [address] [place] [address] Jacinto Arzate MD [facility] [employer] [address] [place] [address] documented as of this encounter Procedures Procedure Name Priority Date/Time Associated Diagnosis Comments IRON, TIBC, AND PERCENT SATURATION Routine 12/17/2023 8:33 AM CDT documented in this encounter Results * IRON, TIBC, AND PERCENT SATURATION (12/17/2023 8:33 AM CDT) Blood Jacinto Arzate MD CHEMISTRY ORDERABLES documented in this encounter Visit Diagnoses Not on filedocumented in this encounter Care Teams Welder And Fitter Relationship Specialty Start Date End Date Rinku Beasley MD [address] [place] [address] PCP - General Internal Medicine 05/22/23 documented as of this encounter
--- OUTSIDE RECORDS SUMMARY | 2024-10-06 05:35 | XMS_ITS | Encounter Summary ---
Author Organization [facility] Address [address] [place] [address] Phone Care Team Providers Care Pump Press Operator Name Role Phone Rinku Beasley MD Primary Care Provider [phone] Reason for Visit * Consultation (Urgent) - Authorized Specialty Diagnoses / Procedures Referred By Contac t Referred To Contact Cardiology Diagnoses Paroxysmal atrial fibrillation (CMS/HCC) (HCC) Nonrheumatic mitral valve regurgitation Other persistent atrial fibrillation (HCC) Essential (primary) hypertension Rinku Beasley MD [address] [place] [address] Phone: tel: fax: [facility] (All Locations) Referral ID Status Reason Start Date Expiration Date Visits Requested Visits Authorized [id number] Authorized Specialty Services Required 09/24/2023 10/23/2024 12 12 Encounter Details Date Type Department Care Team (Late st Contact Info) Description 11/13/2023 1:15 PM SENIOR RECRUITMENT CONSULTANT Office Visit [facility] Cardiology [address] [facility] [address] 8th [place] [address] [place] [id number] Idris Rosas MD PhD [address] [facility] [address] [place] [address] Paroxysmal atrial fibrillation (CMS/HCC) (HCC) (Primary Dx); Nonrheumatic mitral valve regurgitation; Other persistent atrial fibrillation (HCC); Essential (primary) hypertension; Morbid obesity with BMI of 40.0-44.9, adult (HCC) Social History Tobacco Use Types Packs/Day Years [...] on file Legal Sex Female 12:33 AM SENIOR RECRUITMENT CONSULTANT Gender Identity Not on file Sexual Orientation Not on file documented as of this encounter Last Filed Vital Signs Vital Sign Reading Time Taken Comments Blood Pressure 109/76 11/13/2023 1:28 PM SENIOR RECRUITMENT CONSULTANT Pulse 98 11/13/2023 1:28 PM SENIOR RECRUITMENT CONSULTANT Temperature - - Respiratory Rate - - Oxygen Saturation 92% 11/13/2023 1:28 PM SENIOR RECRUITMENT CONSULTANT Inhaled Oxygen Concentration - - Weight 101.9 kg (224 lb 9.6 oz) 11/13/2023 1:28 PM SENIOR RECRUITMENT CONSULTANT Height 160 cm (5' 3 ) 11/13/2023 1:28 PM SENIOR RECRUITMENT CONSULTANT Body Mass Index 39.79 11/13/2023 1:28 PM SENIOR RECRUITMENT CONSULTANT documented in this encounter Patient Instructions * Patient Instructions* Idris Rosas MD PhD - 11/13/2023 1:15 PM SENIOR RECRUITMENT CONSULTANT Call Flora MARAVILLA to schedule admission for dofetilide initiation and cardioversion if necessary. [phone] OR RECRUITMENT CONSULTANT documented in this encounter Ordered Prescriptions Prescription Sig Dispense Quantity Refills Last Filled Start Date End Date metoprolol XL (TOPROL-XL) 50 mg extended release tablet Take 1 tablet (50 mg total) by mouth daily 30 tablet 11 11/13/2023 11/22/2023 documented in this encounter Progress Notes * Idris Rosas MD PhD - 11/13/2023 1:15 PM CST Cardiac Electrophysiology Initial Consultation At the kind request of Saul Tee MD, I had the pleasure of seeing Lluvia Castaneda (1950) at the [facility] Cardiac Electrophysiology Service today, 11/13/2023, in consultation for atrial fibrillation.. My review of external records indicates that Ms. Castaneda is a 73 y.o. woman with a history of hypertension, obesity and atrial fibrillation. She first presented with AF in the summer of 2020 with a sinus infection and was found to be in AF. She was treated with amiodaorne, metoprolol and apixaban. Echo revealed an LV ejection fraction of 0.41. She underwent cardioversion on 07 June 2021 and felt better. Amiodarone was reduced to 200 mg every day, then to 100 mg every day, in part because of heart rates in the 40s. She has a recurrence of atrial fibrillation in fall. She was no longer takng amiodarone, but was continuing metoprolol and apixaban. Sleep study led to a diagnosis fo TAZ and she began CPAP. Cardioversion was planned. Echo on 18 September 2023 revealed normal LV systolic function with an LV ejection fraction of 0.57.There was mild concentric LVH. The left atrium was moderately enlarged (LA volume index 43. Nl: 16-34). Stress testing in July 2023 revealed normal ejection fraction with normal myocardial perfusion. The patient tells me that, on one point, she was started on flecainide, but it was discontinued just three days later, though she's not sure why. She says that when she is atrial fibrillation, she isalways fatigued, dyspneic on exertion, and she sometimes has lightheadedness when the heart rate isslow. She is interested in what further therapies are available. Past Medical History She has a past medical history of Hypertension. She has no past surgical history on file. Medications Outpatient Medications Prior to Visit Medication Sig Dispense Refill acetaminophen (TYLENOL) 325 mg tablet Take 500 mg by mouth daily acidophilus-pectin, citrus 100 million cell-10 mg capsule Take by mouth azelastine (ASTELIN) 137 mcg (0.1 %) nasal spray Administer 1 spray into each nostril daily cholecalciferol (VITAMIN D-3) 38915 unit capsule Take 1 Units by mouth daily cranberry fruit extract (CRANBERRY ORAL) Take 500 mg by mouth daily Eliquis 5 mg tablet TAKE 1 TABLET (5 MG) BY ORAL ROUTE 2 TIMES PER DAY fluticasone propionate (FLONASE) 50 mcg/actuation nasal spray Administer 2 sprays into each nostrildaily nzmtgcnkzjou-egrpmuox-cqvpsi tablet Take 1 tablet by mouth daily omeprazole (PriLOSEC) 40 mg capsule Take 1 capsule (40 mg total) by mouth daily spironolactone (ALDACTONE) 50 mg tablet Take 1 tablet (50 mg total) by mouth daily TURMERIC ORAL Take 500 mg by mouth daily metoprolol tartrate (LOPRESSOR) 50 mg immediate release tablet Take 1 tablet (50 mg total) by mouth2 (two) times a day May increase dose to 100 mg bid if resting heart rate elevates above 100 bpm diphenhydrAMINE (BENADRYL) 25 mg capsule Take 1 tablet/capsule (25 mg total) by mouth nightly as needed for itching No facility-administered medications prior to visit. Allergies Allergies Allergen Reactions Hydrocodone-Acetaminophen Hives, Itching and Rash Red Dye Rash Itching hives rash, Social History She reports that she has never smoked. She has never used smokeless tobacco. She reports that she does not use drugs. Patient denies consuming alcoholic drinks. Family History Ms. Castaneda's family history includes No Known Problems in her father and mother. Review of Systems A full 10-point review of systems was negative except for as above and fatigue, lack of energy, irregular heart beats, dyspnea on exertion, nocturnal dyspnea, snoring, daytime sleepiness, rhinitis, swallowing difficulty, grastric reflux, nocturia, joint pain, back pain, bruising, occaional unsteacybalance. Physical Examination On physical examination, she is in no acute distress. BP 109/76 Pulse 98 Ht 160 cm (5' 3 ) Wt 101.9 kg (224 lb 9.6 oz) SpO2 92% BMI 39.79 kg/m?? Head and neck were within normal limits. There was no scleral icterus. Extraocular movements were intact. The oral mucosa was moist. The neck was supple with no thyromegaly or mass. There was no cervical lymphadenopathy. Chest was clear to auscultation bilaterally. On cardiovascular examination, there was no elevation of the the jugular venous pressure appreciated. There was an irregular rhythm with no murmur, rub, or gallop. The abdomen was soft, not tender. There was no organomegaly or mass. Bowel sounds were present. The extremities were without clubbing, or cyanosis. The is no edema. The skin was warm and dry without rash. The affect was normal. Diagnostic Data ECG: ECG today revealed atrial fibrillaiton with a rate of 109 bpm. Impression We had an extended discussion concerning the mechanism, implications, and treatment avenues for atrial fibrillation, specifically: anticoagulation, rate control, and rhythm control. We discussed thatanticoagulation is a preventive therapy; rate and rhythm control therapies are driven by symptoms. We discussed the importance of anticoagulation in the setting of her [id number] VaSC score, weighed against the bleeding risk associated with anticoagulation. We further discussed that we have no proof that treatments other than anticoagulation reduces the risk of thromboembolism. I've recommended that she continue her current apixaban. We discussed that with good rate control, many patients can feel normal, or nearly so, even when inatrial fibrillation. We discussed that rate control typically consists of medical therapy to slow the frequency of AV node conduction and control the ventricular rate. In rare cases, the rate concernis bradycardia, and pacemaker must be considered. In cases where rapid ventricular response and symptoms are refractory to medical rate control AV node ablation, which requires pacemaker implantationis a possibility. I've recommended that she continue metoprolol, but switch to the long acting metoprolol succinate, which I've prescribed for here. Adjustment may be required over time. We discussed that rhythm control, in both the forms of antiarrhythmic agents and ablation therapy, is an imperfect pursuit. None of the several available antiarrhythmic agents eliminates atrial fibrillation, though it may be successfully suppressed. These potent medicines have known side effects and toxicities, including proarrhythmia. Careful monitoring is required. They are frequently initiatedin the hospital, with close monitoring of telemetry and 12- lead ECGs. We also discussed catheter ablation therapy, the cornerstone of which is pulmonary vein isolation, either using cryoenergy or radiofrequency ablation. We discussed a 60-80% success rate and we also discussed the difficulty of defi carina success, since symptoms drive therapy. Many patients experience significant symptoms relief, even if atrial fibrillation is not eliminated. Sometimes ablation therapy combined with an antiarrhythmic drug yields a benefit. We also discussed an approximately 3% risk of major adverse events, including bleeding, thromboembolism, cardiac or vascular perforation, and atrioesophageal fistula. We discussed measures taken to avoid these complications. In Ms. Castaneda's case, I recommended intiation of dofetilide. Depending of her progress after that, she may consider proceeding to ablation. We will plan to follow-up in a few months' time after dofetilide initiation, provided no new concerns arise in the interim. It's a pleasure to see Ms. Castaneda. I am grateful for the opportunity to participate in her care. Marixa Osman M.D. hand alterations seamstress [facility] in [place] 11/13/2023 OR RECRUITMENT CONSULTANT documented in this encounter Plan of Treatment Not on file documented as of this encounter Procedures Procedure Name Priority Date/Time Associated Diagnosis Comments ECG 12-LEAD Routine 11/13/2023 Paroxysmal atrial fibrillation (CMS/HCC) (HCC) documented in this encounter Results * ECG 12 lead (11/13/2023) us Idris Rosas MD PhD ECG ORDERABLES Van wendy Result - Final documented in this encounter Visit Diagnoses Diagnosis Paroxysmal atrial fibrillation (CMS/HCC) (HCC)- Primary Atrial fibrillation Nonrheumatic mitral valve regurgitation Other persistent atrial fibrillation (HCC) Essential (primary) hypertension Unspecified essential hypertension Morbid obesity with BMI of 40.0-44.9, adult (HCC) documented in this encounter Discontinued Medications Medication Sig Discontinue Reason Start Date End Da te metoprolol tartrate (LOPRESSOR) 50 mg immediate release tablet Take 1 tablet (50 mg total) by mouth 2 (two) times a day May increase dose to 100 mg bid if resting heart rate elevates above 100 bpm 05/22/2021 11/13/2023 documented as of this encounter Orders Outpatient Referral Count Last Ordered Date Fir st Ordered Date AMB REFERRAL TO CARDIOLOGY 1 11/13/2023 documented in this encounter Care Teams Pump Press Operator Relationship Specialty Start Date End Date Rinku Beasley MD [address] [place] [address] PCP - General 09/08/19 documented as of this encounter
--- OUTSIDE RECORDS SUMMARY | 2024-10-06 05:35 | XMS_ITS | Encounter Summary ---
Author Organization [facility] Healthcare Address [address] [place] [address] Care Team Providers Care Transmission And Protection Engineer Name Role Phone Rinku Beasley MD Primary Care Provider [phone] Reason for Visit * Reason Comments Hospital Follow Up Encounter Details Date Type Department Care Team (Late st Contact Info) Description 11/28/2023 10:00 AM LUSTER APPLICATOR Office Visit [facility] Medical Group Cardiology [address] [place] [address] Tara Thurman NP [address] [place] [address] Paroxysmal atrial fibrillation (CMS/HCC) (HCC) (Primary Dx); Bradycardia; History of cardioversion; Chronic anticoagulation Social History Tobacco Use Types Packs/Day Years [...] on file Legal Sex Female 12:33 AM LUSTER APPLICATOR Gender Identity Not on file Sexual Orientation Not on file documented as of this encounter Last Filed Vital Signs Vital Sign Reading Time Taken Comments Blood Pressure 118/62 11/28/2023 9:57 AM LUSTER APPLICATOR Pulse 49 11/28/2023 9:57 AM LUSTER APPLICATOR Temperature - - Respiratory Rate - - Oxygen Saturation 96% 11/28/2023 9:57 AM LUSTER APPLICATOR Inhaled Oxygen Concentration - - Weight 103 kg (227 lb) 11/28/2023 9:57 AM LUSTER APPLICATOR Height 160 cm (5' 3 ) 11/28/2023 9:57 AM LUSTER APPLICATOR Body Mass Index 40.21 11/28/2023 9:57 AM LUSTER APPLICATOR documented in this encounter Ordered Prescriptions Prescription Sig Dispense Quantity Refills Last Filled Start Date End Date metoprolol XL (TOPROL-XL) 100 mg 24 hr tablet Take 0.5 tablets (50 mg total) by mouth daily 11/28/2023 documented in this encounter Progress Notes * Tara Thurman NP - 11/28/2023 10:00 AM CST Images from the original note were not included. [facility] Medical Group Cardiology [address] [place] [address] Date of Visit: 11/28/2023 Patient ID: Lluvia Castaneda 1950 Chief Complaint Patient presents with Hospital Follow Up Lluvia Castaneda is a 73 y.o. female who is an established patient of Dr. Tee with a history of atrial fibrillation coming to the office for concern of bradycardia after cardioversion. History of Present Illness: Lluvia Castaneda is a 73 y.o. femalewho presents for follow up of atrial fibrillation. This is a patient that I saw in consultation in the early part of 2019 with the referral for valvular heart disease. She was found to have a very small amount of mitral regurgitation which I did not think was clinically significant and I did not anticipate recommending ongoing follow-up. The patient was then seen by her primary care physician in March of the summer after having a sinus infection and was in the office was found to be in atrial fibrillation. She was treated with amiodarone and metoprolol for rate control and started on apixaban for systemic anticoagulation. An echocardiogram was done which demonstrated her LV ejection fraction was slightly reduced at 41% presumably because of the 8 development of atrial fib. She saw our nurse practitioner in follow-up of all of this in the early part of May she seemed to be stable and follow-up with me for today was recommended with an eye towards attempting a DC cardioversion. Patient's other comorbidity is obesity with a BMI of 39.5. Thepatient underwent outpatient DC cardioversion on 06/07/2021 restoring sinus rhythm. Following cardioversion and pentecostalism of sinus rhythm she felt much better. We began the process of we weaning down medications. Amiodarone was reduced to 200 mg daily. Eventually the drug was reduced even furtherto 100 mg every other day. The patient did have some symptoms of dyspnea in 2021 which led to a Holter monitor that did not demonstrate any arrhythmias of significance. The patient was eventually taken off of amiodarone altogether at the request of the PCP as he was concerned about the possibility of lung toxicity. As I dictated in my previous notes I was not highly suspicious of that since she was on an extremely low dosage. She was however seen in the fall of 2022 in the office for follow-up and was back in atrial fibrillation at that time. She was reporting some shortness of breath with modest activity and is attributing this to being back in atrial fibrillation otherwise she is essentially asymptomatic. I recommended an attempt at restoring sinus rhythm at that time. Also discussed the option of electrophysiology consultation 10/08/[address] Tee: She presents back to the office for a follow-up appointment. The cardioversion that I recommended above is scheduled to occur later this month. An echocardiogram was done in the office couple of weeks ago which looks fine her left ventricular systolic function is normal and she has modest mitral valve regurgitation. Had another lengthy discussion about long-term management of her arrhythmia versus rhythm or rate control management. She would like to try to maintain sinus rhythm since again she is reporting feeling more easily short of breath since she has been back in atrial fibrillation. She was asking about whether she should go back on amiodarone. I told her my understanding from her PCP is they do not want her on that medication is they wereconcerned about pulmonary toxicity 10/21/2023 Dr. Tee performed a successful uncomplicated cardioversion 200 J x 1 restoring normal sinus rhythm with heart rate in the mid 60's. 10/24/2023 office visit with BRIDGE TENDER: She is s/p cardioversion 4 days ago. Yesterday she felt some fatigue and shortness of breath. Today she has had a mild headache when she was walking her legs felt kind of weak like they were quivering. She went to have a cataract extraction this morning and the cancel her procedure because her heart rate was 44-45 bpm. She denies syncope or near-syncope. She has been taking the flecainide ever since Saturday night. 12-lead ECG showed sinus bradycardia, rate 48 beats per minute, QTC 431 MS 11/28/2023 office visit with BRIDGE TENDER: In late September she was started on flecainide and had a cardioversion. Unfortunately she went back into AFib a few days later. Flecainide was discontinued and she hadconsultation with EP Dr. Rosas. She was then admitted to [place] and started on dofetilide and did well, then had cardioversion on November 21. Her metoprolol tartrate was converted to metoprolol succinate. Today she states her lightheadedness resolved and she has much less dyspnea and her home monitoring has indicated she is remained in sinus rhythm. Her only complaint is that she does feel fatigued like she could fall asleep easily. Heart rates have been 48-59, BP 130s over 60s. Records that I personally reviewed on the day of this visit include: (the interpretation is outlined in the HPI above) 10/24/2023 office note from myself, 11/13/[address] Rosas and 11/19/2023 [facility] discharge summary. I have also reviewed: allergies, current medications, past family history, past medical history, past social history, past surgical history and problem list. Medical History: Past Medical History: Diagnosis Date Arrhythmia Hypertension No past surgical history on file. Social History Tobacco Use Smoking Status Never Smokeless Tobacco Never Social History Tobacco Use Smoking status: Never Smokeless tobacco: Never Substance and Sexual Activity Drug use: Never Sexual activity: None Alcohol Use: Not At Risk (11/22/2023) AUDIT-C Frequency of Alcohol Consumption: Never Average Number of Drinks: Patient does not drink Frequency of Binge Drinking: Never Family History Problem Relation Age of Onset No Known Problems Mother No Known Problems Father Review of Systems Constitutional: Positive for malaise/fatigue and weight gain. Negative for weight loss. Cardiovascular: Negative for chest pain, claudication, dyspnea on exertion, leg swelling, near-syncope, orthopnea, palpitations, paroxysmal nocturnal dyspnea and syncope. Respiratory: Negative for cough, shortness of breath and sleep disturbances due to breathing. Hematologic/Lymphatic: Negative for bleeding problem. Does not bruise/bleed easily. Neurological: Positive for excessive daytime sleepiness. Negative for dizziness and light-headedness. Vital Signs: BP 118/62 (BP Location: Left arm, Patient Position: Sitting) Pulse (!) 49 Ht 160 cm (5' 3 ) Wt 103 kg (227 lb) SpO2 96% BMI 40.21 kg/m?? Physical Exam Constitutional: General: She is not in acute distress. Appearance: She is well-developed. She is obese. HENT: Head: Normocephalic and atraumatic. Eyes: General: No scleral icterus. Conjunctiva/sclera: Conjunctivae normal. Neck: Vascular: No JVD. Trachea: No tracheal deviation. Cardiovascular: Rate and Rhythm: Regular rhythm. Bradycardia present. Heart sounds: Normal heart sounds. No murmur heard. Comments: Apical heart rate 48 bpm Pulmonary: Effort: Pulmonary effort is normal. No respiratory distress. Breath sounds: Normal breath sounds. Skin: General: Skin is warm and dry. Neurological: Mental Status: She is alert and oriented to person, place, and time. Psychiatric: Mood and Affect: Mood normal. Behavior: Behavior normal. Allergies Allergen Reactions Hydrocodone-Acetaminophen Hives, Itching and Rash Red Dye Rash Itching hives rash, Current Outpatient Medications: acetaminophen (TYLENOL) 325 mg tablet, Take 500 mg by mouth daily , Disp: , Rfl: azelastine (ASTELIN) 137 mcg (0.1 %) nasal spray, Administer 1 spray into each nostril daily, Disp:, Rfl: cranberry fruit extract (CRANBERRY ORAL), Take 500 mg by mouth daily, Disp: , Rfl: diphenhydrAMINE (BENADRYL) 25 mg capsule, Take 1 tablet/capsule (25 mg total) by mouth nightly as needed for itching, Disp: , Rfl: dofetilide (TIKOSYN) 125 mcg capsule, Take 1 capsule (125 mcg total) by mouth 2 (two) times a day, Disp: 60 capsule, Rfl: 2 Eliquis 5 mg tablet, TAKE 1 TABLET (5 MG) BY ORAL ROUTE 2 TIMES PER DAY, Disp: , Rfl: fluticasone propionate (FLONASE) 50 mcg/actuation nasal spray, Administer 2 sprays into each nostril daily, Disp: , Rfl: chylkckmitgi-caegawvu-qikszy tablet, Take 1 tablet by mouth daily, Disp: , Rfl: omeprazole (PriLOSEC) 40 mg capsule, Take 1 capsule (40 mg total) by mouth daily, Disp: , Rfl: spironolactone (ALDACTONE) 50 mg tablet, Take 1 tablet (50 mg total) by mouth daily, Disp: , Rfl: TURMERIC ORAL, Take 500 mg by mouth daily, Disp: , Rfl: acidophilus-pectin, citrus 100 million cell-10 mg capsule, Take by mouth (Patient not taking: Reported on 11/28/2023), Disp: , Rfl: cholecalciferol (VITAMIN D-3) 03530 unit capsule, Take 1 Units by mouth daily (Patient not taking: Reported on 11/28/2023), Disp: , Rfl: metoprolol XL (TOPROL-XL) 100 mg 24 hr tablet, Take 0.5 tablets (50 mg total) by mouth daily, Disp:, Rfl: Lab Results Component Value Date POTASSIUM 4.3 11/22/2023 BUNSER 19 11/22/2023 CREATININE 1.09 11/22/2023 CHOL 212 (H) 11/19/2023 TRIG 104 11/19/2023 LDLCALC 136 (H) 11/19/2023 HDL 55 11/19/2023 Lab Results Component Value Date WBC 10.1 (H) 11/22/2023 HGB 11.4 (L) 11/22/2023 HCT 35.1 (L) 11/22/2023 MCV 88.9 11/22/2023 No results found for this or any previous visit (from the past 4 hour(s)). Lab Results Component Value Date POCCHOL 214 10/08/2023 POCHDL 57 10/08/2023 POCTRIG 260 10/08/2023 POCLDL 105 10/08/2023 POCNONHDL 157 10/08/2023 POCCHLPL 214 10/08/2023 Assessment: Diagnoses and all orders for this visit: Paroxysmal atrial fibrillation (CMS/HCC) (HCC) (Primary) Bradycardia History of cardioversion Chronic anticoagulation Other orders - metoprolol XL (TOPROL-XL) 100 mg 24 hr tablet; Take 0.5 tablets (50 mg total) by mouth daily Plan/Recommendations: She failed a cardioversion on flecainide in late September. She then had consultation with EP Dr. Rosas and was admitted to start dofetilide and then had a successful cardioversion. She is maintaining sinus rhythm and feels better but she does feel daytime sleepiness I suspect is from her bradycardia. I instructed her to reduce metoprolol succinate to 50 mg daily. Continue dofetilide 125 mg b.i.d..Continue anticoagulation with Eliquis. Keep the previously scheduled follow-up visit with Dr. Tee in 2 months, but reach out to us sooner if fatigue does not improve on the lower dose metoprolol. She may proceed with rescheduling her cataract surgery and I can complete a new preop form when we receive it. 11/28/2023 ANAY Gatica- Nurse Practitioner with [facility] [place] [place] Cardiology This note is dictated and transcribed using [employer] Direct Software. Iron Plastic Bullet Maker variancesmay occur. Despite proofreading, typographical errors may occur. ER APPLICATOR documented in this encounter Plan of Treatment Not on file documented as of this encounter Visit Diagnoses Diagnosis Paroxysmal atrial fibrillation (CMS/HCC) (HCC)- Primary Atrial fibrillation Bradycardia Other specified cardiac dysrhythmias History of cardioversion Chronic anticoagulation Encounter for long-term (current) use of anticoagulants documented in this encounter Discontinued Medications Medication Sig Discontinue Reason Start Date End Da te metoprolol XL (TOPROL-XL) 100 mg 24 hr tablet Take 1 tablet (100 mg total) by mouth daily 11/23/2023 11/28/2023 documented as of this encounter Care Teams Transmission And Protection Engineer Relationship Specialty Start Date End Date Rinku Beasley MD [address] [place] [address] PCP - General 09/08/19 documented as of this encounter
--- OUTSIDE RECORDS SUMMARY | 2024-10-06 05:35 | XMS_ITS | Encounter Summary ---
Author Organization [facility] Address [address] [place] [address] Care Team Providers Care Art Therapy Specialist Name Role Phone Rinku Beasley MD Primary Care Provider + Encounter Details Date Type Department Care Team (Late st Contact Info) Description 10/18/2023 External Device Data STL ABSTRACTION Provider, Abstract [...] st Contact Info) Description 11/09/2024 1:15 PM CASING WORKER Office Visit [facility] Oncology and Hematology [place] [address] [place] [address] [facility] [address] [place] [address] Jacinto Arzate MD [address] [facility] [address] [place] [address] documented as of this encounter Visit Diagnoses Not on filedocumented in this encounter Care Teams Art Therapy Specialist Relationship Specialty Start Date End Date Rinku Beasley MD [address] [place] [address] PCP - General Internal Medicine 05/22/23 documented as of this encounter
--- OUTSIDE RECORDS SUMMARY | 2024-10-06 05:35 | XMS_ITS | Encounter Summary ---
Author Organization [facility] SAIDA Agrawal [facility] Address [address] [place] [address] Care Team Providers Care Head Men'S Golf Coach Name Role Phone Rinku Beasley MD Primary Care Provider + Reason for Visit * Reason Comments Follow Up Encounter Details Date Type Department Care Team (Late st Contact Info) Description 12/31/2023 11:30 AM CDT Office Visit [facility] Oncology and Hematology - [place] [address] [facility] [address] [place] [address] Jacinto Arzate MD [address] [facility] [address] [place] [address] Chronic anemia (Primary Dx) Social [...] Sign Reading Time Taken Comments Blood Pressure 117/70 12/31/2023 11:03 AM CDT Pulse 66 12/31/2023 11:03 AM CDT Temperature 36.3 ??C (97.3 ??F) 12/31/2023 11:03 AM C DT Respiratory Rate 14 12/31/2023 11:03 AM CDT Oxygen Saturation 96% 12/31/2023 11:03 AM CDT Inhaled Oxygen Concentration - - Weight 99.8 kg (220 lb) 12/31/2023 11:03 AM CDT Height - - Body Mass Index 38.97 08/12/2023 9:42 AM HIDE CLEANER documented in this encounter Progress Notes * Jacinto Arzate MD - 12/31/2023 11:36 AM CDT HEMATOLOGY / ONCOLOGY PROGRESS NOTE Patient Identification: Name: Lluvia Castaneda Age: 73 y.o. Sex: female : 1950 DIAGNOSIS Normocytic anemia CURRENT TREATMENT Multivitamin TREATMENT HISTORY SUBJECTIVE Patient came to the office for follow-up visit. She denies any excessive tiredness and fatigue. No bleeding and bruising. Weight and appetite stable. Denies any chest pain or shortness of breath. No other new complaints. Review of system Constitutional: Patient did not mention fevers, sweats, denies any tiredness and fatigue HEENT: Patient did not mention sinus congestion, [...] dizziness Skin: No lumps, bumps or rashes. 12 point review of system was reviewed Objective: Vital signs in last 24 hours: [...] No lymphadenopathy Neuro: No obvious focal deficit Exam as above PATH LABS Will from August 12 showed creatinine 1.2 GFR 44 B12 434 iron 92 saturation 25% ferritin 23.4 hemoglobin 12.4 Labs from December 16 showed creatinine 0.9 B12 425 iron 51 saturation 15 ferritin 32 hemoglobin 11.9 Assessment: Plan: There are no problems to display for this patient. Normocytic anemia. Labs showed slight decline in hemoglobin down to 11.9. Iron studies has declinedas well. We will start oral iron 65 mg daily along with vitamin B12 500 mcg daily. She will continue multivitamin supplement as well. Follow-up in 4 months. Fibrillation. Stable on Eliquis. GERD. She is on omeprazole. TOBACCO COUNSELING She is not a tobacco/nicotine user. 12/31/2023 Jacinto Arzate MD documented in this encounter Plan of Treatment Upcoming Encounters Date Type Department Care Team (Late st Contact Info) Description 11/09/2024 1:15 PM HIDE CLEANER Office Visit [facility] Oncology and Hematology [facility] [address] [facility] [address] [place] [address] Jacinto Arzate MD [address] [facility] [address] [place] [address] Scheduled Orders Name Type Priority Associated Diagnoses Orde r Schedule CBC WITHOUT DIFFERENTIAL Lab Stat Chronic anemia Expected: 04/21/2024, Expires: 12/30/2024 BASIC METABOLIC PANEL Lab Stat Chronic anemia Expected: 04/21/2024, Expires: 12/30/2024 FERRITIN Lab Routine Chronic anemia Expected: 04/21/2024, Expires: 12/30/2024 IRON, TIBC, AND PERCENT SATURATION Lab Routine Chronic anemia Expected: 04/21/2024, Expires: 12/30/2024 VITAMIN B12 AND FOLATE Lab Routine Chronic anemia Expected: 04/21/2024, Expires: 12/30/2024 documented as of this encounter Visit Diagnoses Diagnosis Chronic anemia- Primary Anemia, unspecified documented in this encounter Care Teams Head Men'S Golf Coach Relationship Specialty Start Date End Date Rinku Beasley MD [address] [place] [phone] PCP - General Internal Medicine 05/22/23 documented as of this encounter
--- OUTSIDE RECORDS SUMMARY | 2024-10-06 05:35 | XMS_ITS | Encounter Summary ---
Author Organization [facility] Address [address] [place] [address] Phone Care Team Providers Care Telephonic Nurse Name Role Phone Rinku Beasley MD Primary Care Provider + [phone] Encounter Details Date Type Department Care Team (Late st Contact Info) Description 11/14/2023 Telephone [facility] Cardiology [address] [facility] Advanced Medicine 8th [place] [address] [place] [phone] Idris Rosas MD PhD [address] [facility] [address] [place] [address] Social History Tobacco Use Types Packs/Day Years [...] file 10/25 Personal Safety Answer Date Recorded Have you ever been in or are you currently in a harmful physical or emotional relationship or is someone making you feel afraid or unsafe? Denies 11/19/2023 Comments Unknown Sex and Gender Information Value Date Recorded Sex Assigned at Not on file Legal Sex Female 12:33 AM SECTION HOUSEKEEPER Gender Identity Not on file Sexual Orientation Not on file documented as of this encounter Miscellaneous Notes * Telephone Encounter - Dhaval Mir - 11/19/2023 4:32 PM CST Spoke with patient and she is aware. ION HOUSEKEEPER * Telephone Encounter - Dhaval Mir - 11/19/2023 4:26 PM CST Called admitting department and and requested bed. Admitting department will call when bed is available RN in admissions note bed may not happen today but will call patient if becomes available. ION HOUSEKEEPER * Telephone Encounter - Marquita Tinoco - 11/19/2023 3:30 PM CST Ralph Pt is calling in regards to seeing if she is still going to be admitted today. ION HOUSEKEEPER * Telephone Encounter - Hanna Trevizo RHIT - 11/15/2023 11:38 AM SECTION HOUSEKEEPER MCR / Commercial, Pre-cert not required for Drug loading admission. ION HOUSEKEEPER * Telephone Encounter - Carline Rod RN - 11/14/2023 9:57 AM CST Patient called and we talked about the tikosyn drug load and what it involves. Patient is in AF andso I explained that starting the medicine might convert her to a normal rhythm -if not then on the 3 day we will do a cardioversion and thus she needs a diver to and from the hospital. I explainedthat she is to continue her eliquis uninterrupted. I also informed her that a member of the admitting team will call her when the bed I ready . Lluvia Agrawal Leonel,:1950, is scheduled for tikosyn drug load procedure on SaturdayNovember 19 . Office visit note or progress note in chart with the plan: The patient : Will require overnight stay The patient will need No CPA or TPAP Testing: No testing required Please include the following medication instructions: Cont. Eliquis uninterrupted PRE-CERT: Please notify Pre-cert of drug load Please schedule the following follow up appointments: Followup 4-6 weeks post admit The Patient case has been placed on the EP calendar. Please mail Patient information letter to patient. Thanks ION HOUSEKEEPER * Telephone Encounter - Chandni Stallings - 11/14/2023 9:42 AM CST Ralph Patient called stating she was instructed by Dr. Rosas to call and speak to Flora. She can be reached at [phone] ION HOUSEKEEPER documented in this encounter Plan of Treatment Not on file documented as of this encounter Visit Diagnoses Not on filedocumented in this encounter Care Teams Telephonic Nurse Relationship Specialty Start Date End Date Rinku Beasley MD [address] [place] [address] PCP - General 09/08/19 documented as of this encounter
--- OUTSIDE RECORDS SUMMARY | 2024-10-06 05:35 | XMS_ITS | Encounter Summary ---
Author Organization [facility] Healthcare Address [address] [place] [address] Care Team Providers Care Tube And Manifold Builder Name Role Phone Rinku Beasley MD Primary Care Provider [phone] Encounter Details Date Type Department Care Team ([facility] Contact Info) Description 10/21/2023 Orders Only [facility] Information Management [address] [place] [id number] Scanning, Provider Social History Tobacco Use Types Packs/Day Years [...] on file Legal Sex Female 12:33 AM EDUCATION NURSE Gender Identity Not on file Sexual Orientation Not on file documented as of this encounter Plan of Treatment Not on file documented as of this encounter Procedures Procedure Name Priority Date/Time Associated Diagnosis Comments CARDIOLOGY DOCUMENT SCAN 10/21/2023 documented in this encounter Results * Cardiology Document Scan (10/21/2023) Anatomical Region Laterality Modality Other us Provider Scanning CV CARDIAC SERVICES PROCEDURES Final Result documented in this encounter Visit Diagnoses Not on filedocumented in this encounter Care Teams Tube And Manifold Builder Relationship Specialty Start Date End Date Rinku Beasley MD [address] [place] [address] PCP - General 09/08/19 documented as of this encounter
--- OUTSIDE RECORDS SUMMARY | 2024-10-06 05:35 | XMS_ITS | Encounter Summary ---
Author Organization [facility] SAIDA Agrawal [facility] Address [address] [place] [address] Care Team Providers Care Railroad Car Painter Name Role Phone Rinku Beasley MD Primary Care Provider + Reason for Visit * Reason Comments Follow Up Encounter Details Date Type Department Care Team (Late st Contact Info) Description 05/05/2024 1:15 PM CDT Office Visit [facility] Oncology and Hematology - David [address] [facility] [address] [place] [address] Jacinto Arzate MD [address] [facility] [address] [place] [address] Chronic anemia (Primary Dx) Social [...] (225 lb) 05/05/2024 1:09 PM CDT Height - - Body Mass Index 39.86 08/12/2023 9:42 AM INTELLIGENCE CLERK documented in this encounter Progress Notes * Jacinto Arzate MD - 05/05/2024 1:25 PM CDT HEMATOLOGY / ONCOLOGY PROGRESS NOTE Patient Identification: Name: Lluvia Castaneda Age: 73 y.o. Sex: female : 1950 DIAGNOSIS Normocytic anemia CURRENT TREATMENT Multivitamin TREATMENT HISTORY SUBJECTIVE Patient came to the office for follow-up visit. She denies any night sweats fevers and chills. Denies any tiredness and fatigue. No bleeding and bruising. Overall she is feeling much better and more stronger. No other new complaints. Review of system Constitutional: Patient did not mention fevers, sweats, denies any tiredness and fatigue, 5 pound weight gain HEENT: Patient did not mention sinus congestion, [...] 51 saturation 15 ferritin 32 hemoglobin 11.9 Labs from April 22 showed creatinine 0.9 vitamin B12 more than 1000 hemoglobin 12.1 iron 126 saturation 40 ferritin 47 Assessment: Plan: There are no problems to display for this patient. Normocytic anemia. Clinically she is feeling much better and more stronger. Labs showed improvementin hemoglobin now normal at 12.1. She will continue oral iron 65 mg daily. Vitamin B12 level came back elevated and we will reduce the dose to 500 mcg every other day basis. Follow-up in 6 months. Atrial fibrillation. Stable on Eliquis. GERD. She is on omeprazole. Stable. TOBACCO COUNSELING She is not a tobacco/nicotine user. 05/05/2024 Jacinto Arzate MD documented in this encounter Plan of Treatment Upcoming Encounters Date Type Department Care Team (Late st Contact Info) Description 11/09/2024 1:15 PM INTELLIGENCE CLERK Office Visit [facility] Oncology and Hematology - [place] [address] [place] [address] [address] [place] [address] Jacinto Arzate MD [address] [facility] [address] [place] [address] Scheduled Orders Name Type Priority Associated Diagnoses Orde r Schedule CBC WITH DIFFERENTIAL Lab Stat Chronic anemia Expected: 11/05/2024, Expires: 05/05/2025 FERRITIN Lab Routine Chronic anemia Expected: 11/05/2024, Expires: 05/05/2025 BASIC METABOLIC PANEL Lab Stat Chronic anemia Expected: 11/05/2024, Expires: 05/05/2025 IRON, TIBC, AND PERCENT SATURATION Lab Routine Chronic anemia Expected: 11/05/2024, Expires: 05/05/2025 VITAMIN B12 AND FOLATE Lab Routine Chronic anemia Expected: 11/05/2024, Expires: 05/05/2025 documented as of this encounter Visit Diagnoses Diagnosis Chronic anemia- Primary Anemia, unspecified documented in this encounter Care Teams Railroad Car Painter Relationship Specialty Start Date End Date Rinku Beasley MD [address] [place] [address] PCP - General Internal Medicine 05/22/23 documented as of this encounter
--- OUTSIDE RECORDS SUMMARY | 2024-10-06 05:35 | XMS_ITS | Encounter Summary ---
Author Organization [facility] Healthcare Address [address] [place] [address] Care Team Providers Care Tab Cutting Machine Operator Name Role Phone Rinku Beasley MD Primary Care Provider [phone] Reason for Visit * Reason Comments EKG visit * Cardiology (Routine) - Closed Specialty Diagnoses / Procedures Referred By Contac t Referred To Contact Diagnoses Status post cardiac surgery Procedures ECG 12 lead Saul Tee MD [address] [address] Phone: tel: fax: [facility] Medical Group Referral ID Status Reason Start Date Expiration Date Visits Re quested Visits Authorized [id number] Closed 10/21/2023 11/19/2024 1 1 Encounter Details Date Type Department Care Team (Latest Contact Info) Description 10/31/2023 9:30 AM TRANSPORTATION PLANNER Procedure visit [facility] Medical Group Cardiology [address] [address] Status post cardiac surgery Social History Tobacco Use Types Packs/Day Years [...] on file Legal Sex Female 12:33 AM TRANSPORTATION PLANNER Gender Identity Not on file Sexual Orientation Not on file documented as of this encounter Last Filed Vital Signs Vital Sign Reading Time Taken Comments Blood Pressure 110/70 10/31/2023 2:01 PM TRANSPORTATION PLANNER Pulse 84 10/31/2023 2:01 PM TRANSPORTATION PLANNER Temperature - - Respiratory Rate - - Oxygen Saturation 96% 10/31/2023 2:01 PM TRANSPORTATION PLANNER Inhaled Oxygen Concentration - - Weight - - Height - - Body Mass Index - - documented in this encounter Progress Notes * Meaghan Luevano MA - 10/31/2023 9:30 AM CST One week f/u EKG after appt with CT. Metoprolol was reduced to metoprolol 50mg bid and still on flecainide 100mg bid. Pt states she is lightheaded. C/o of SOB and fatigue. She has an upcoming appt on 11/13/23 with TIM Pacheco NP spoke with pt about EKG Pt phone number: [phone] SPORTATION PLANNER documented in this encounter Plan of Treatment Not on file documented as of this encounter Procedures Procedure Name Priority Date/Time Associated Diagnosis Comments ECG 12-LEAD Routine 10/31/2023 Status post cardiac surgery documented in this encounter Results * ECG 12 lead (10/31/2023) Saul Tee MD ECG ORDERABLES Final Re sult documented in this encounter Visit Diagnoses Diagnosis Status post cardiac surgery documented in this encounter Care Teams Tab Cutting Machine Operator Relationship Specialty Start Date End Date Rinku Beasley MD [address] [place], [place] [id number] PCP - General 09/08/19 documented as of this encounter
--- OUTSIDE RECORDS SUMMARY | 2024-10-06 05:35 | XMS_ITS | Encounter Summary ---
Author Organization [facility] Healthcare Address [address] [place] [address] Care Team Providers Care Needle Leader Name Role Phone Rinku Beasley MD Primary Care Provider Reason for Visit * Reason Onset Date Comments Today's ECG 10/31/2023 Encounter Details Date Type Department Care Team (Late st Contact Info) Description 10/31/2023 Telephone [facility] Medical Group Cardiology [address] [place] [address] Tara Thurman NP [address] [place] [address] Today's ECG Social History Tobacco Use Types Packs/Day Years [...] on file Legal Sex Female 12:33 AM FOOD TRAY ASSEMBLER Gender Identity Not on file Sexual Orientation Not on file documented as of this encounter Miscellaneous Notes * Telephone Encounter - Tara Thurman NP - 10/31/2023 1:35 PM FOOD TRAY ASSEMBLER I called patient to review results of today's ECG which shows she is back in Afib with controlled ventricular response. Patient states she went back into Afib last evening (10/24/23) as noted by her smart watch. I instructed her to stop flecainide and continue metoprolol tartrate 50 mg bid. If resting heart rate elevates above 100 bpm, increase metoprolol tartrate back up to 100 mg bid. AwaitEP consult in 2 weeks for further recommendations. I also told her she may proceed with rescheduling cataract surgery. She may have cataract surgery while in Afib. She verbalized understanding. This was all reviewed with Dr. Tee who was in the office at the time. TRAY ASSEMBLER documented in this encounter Plan of Treatment Not on file documented as of this encounter Visit Diagnoses Not on filedocumented in this encounter Discontinued Medications Medication Sig Discontinue Reason Start Date End Da te flecainide (TAMBOCOR) 100 mg tablet Take 1 tablet (100 mg total) by mouth 2 (two) times a day Alternate therapy 10/21/2023 10/31/2023 documented as of this encounter Care Teams Needle Leader Relationship Specialty Start Date End Date Rinku Beasley MD [address] [place] [address] PCP - General 09/08/19 documented as of this encounter
--- OUTSIDE RECORDS SUMMARY | 2024-10-06 05:35 | XMS_ITS | Encounter Summary ---
Author Organization [facility] Address [address] [place] [address] Phone Care Team Providers Care Fingernail Former Name Role Phone Rinku Beasley MD Primary Care Provider + [phone] Encounter Details Date Type Department Care Team (Late st Contact Info) Description 06/08/2024 Telephone [facility] Cardiology [address] [facility] Advanced Medicine 8th [place] [address] [place] [phone] Idris Rosas MD PhD [address] [facility] [address] [place] [address] Social History Tobacco Use Types Packs/Day Years [...] on file Legal Sex Female 12:33 AM SKEIN YARD DRIER Gender Identity Not on file Sexual Orientation Not on file documented as of this encounter Miscellaneous Notes * Telephone Encounter - Flora Swann RN - 06/09/2024 1:21 PM CDT Placed call and spoke with pt. Explained if we manage her dofetilide we do set up labs and EKG every 3 months. She prefers to have Dr. Rosas manage her dofetilide. Plans for every 3 mo EKG and Labs will be at [facility]. She will be due in Aug. * Telephone Encounter - Flora Swann RN - 06/08/2024 2:16 PM CDT After leaving [facility] Dr. Tee has been refilling her dofetilide for a 9 month supply. Will await pt 's call back and whoever is ordering dofetilide can monitor EKG and renal function. * Telephone Encounter - Flora Swann RN - 06/08/2024 2:03 PM CDT Left msg for pt letting her know BMP shows normal kidney function and she continue same dose of Tikosyn/dofetilide. Explained when on this drug her kidney function and EKG need to be monitored every 3 months. Asked her to give us a call and let us know a location locally where she can obtain this testing. We can then add this information to her chart. * Telephone Encounter - Flora Swann RN - 06/08/2024 2:01 PM CDT ----- Message from Idris Rosas MD PhD sent at 06/08/2024 10:51 AM CDT ----- BMP good. documented in this encounter Plan of Treatment Not on file documented as of this encounter Visit Diagnoses Not on filedocumented in this encounter Care Teams Fingernail Former Relationship Specialty Start Date End Date Rinku Beasley MD [address] [place] [address] PCP - General 09/08/19 documented as of this encounter
--- OUTSIDE RECORDS SUMMARY | 2024-10-06 05:35 | XMS_ITS | Encounter Summary ---
Author Organization [facility] Healthcare Address [address] [place] [address] Care Team Providers Care Integration Aide Name Role Phone Rinku Beasley MD Primary Care Provider [phone] Reason for Visit * Cardiology (Routine) - Closed Specialty Diagnoses / Procedures Referred By Contac t Referred To Contact Cardiology Diagnoses Nonrheumatic mitral valve regurgitation Procedures Transthoracic Echo (TTE) Complete W Doppler/CF Reed Todd NP [address] [facility] [address] [address] Phone: tel: fax: Referral ID Status Reason Start Date Expiration Date Visits Re quested Visits Authorized [id number] Closed 07/18/2023 08/16/2024 1 1 Encounter Details Date Type Department Care Team (Latest Contact Info) Description 09/18/2023 11:15 AM GRAIN ELEVATOR SUPERINTENDENT Ancillary Procedure [facility] Medical Group Cardiology [address] [address] Nonrheumatic mitral valve regurgitation Social History Tobacco Use Types Packs/Day Years [...] on file Legal Sex Female 12:33 AM GRAIN ELEVATOR SUPERINTENDENT Gender Identity Not on file Sexual Orientation Not on file documented as of this encounter Last Filed Vital Signs Vital Sign Reading Time Taken Comments Blood Pressure 109/97 09/18/2023 12:07 PM GRAIN ELEVATOR SUPERINTENDENT Pulse - - Temperature - - Respiratory Rate - - Oxygen Saturation - - Inhaled Oxygen Concentration - - Weight - - Height - - Body Mass Index - - documented in this encounter Plan of Treatment Not on file documented as of this encounter Procedures Procedure Name Priority Date/Time Associated Diagnosis Comments TRANSTHORACIC ECHO (TTE) COMPLETE W DOPPLER/CF WO CONTRAST Routine 09/18/2023 12:07 PM GRAIN ELEVATOR SUPERINTENDENT Nonrheumatic mitral valve regurgitation documented in this encounter Results * TRANSTHORACIC ECHO (TTE) COMPLETE W DOPPLER/CF WO CONTRAST (09/18/2023 12:07 PM GRAIN ELEVATOR SUPERINTENDENT) Anatomical Region Laterality Modality Ultrasound 09/18/2023 11:2 4 AM GRAIN ELEVATOR SUPERINTENDENT Narrative 09/18/2023 12:33 PM GRAIN ELEVATOR SUPERINTENDENT [facility] Medical Group Cardiology [address] [facility] [address], [place] [address] [address] [facility] [address] [address] P:[phone] P:[phone] Echocardiographic Report Patient Name: LLUVIA JONES S : 1950 Study Date: 09/18/2023 11:24:24 AM Gender: F Tech: Location: [facility] Provider: REED TODD ?Height(Cm): 160 BSA: 2.13 Weight(Kg): 102.1 Heart Rate: 85 BP: 109 / 97 Quality: Good Order Provider: REED TODD PROCEDURES: Echocardiographic Report: Transthoracic echocardiogram with complete 2D, M-Mode, and color Doppler examination. INDICATIONS: Atrial Fibrillation, and Mitral Regurgitation. Measurements: 2D/M Mode ?Doppler Measurement ?Value ?Normal Range ?Measurement ?Value ?Normal Range LVIDd 2D ? 4.24 ? [ 3.80 - 5.20 ] cm ?KAREN Vmax ? 2.44 ? [ 2.00 - 4.00 ] cm2 LVIDs 2D ? 3.50 ? [ 2.20 - 3.50 ] cm ?AV Mean PG ? 2 ?mmHg LVPWd 2D ? 1.15 ? [ 0.60 - 0.90 ] cm ?AV Peak Hugh ?0.95 ? [ 1.00 - 1.70 ] m/s IVSd 2D ?1.22 ? [ 0.60 - 0.90 ] cm ?AV Peak PG ? 4 ?mmHg LA Volume Index ?43 ? [ 16 - 34 ] cc/m2 ? AV VTI ? 16.16 ?cm LVOT Diam ?1.93 ?[ 1.70 - 2.10 ] cm LVOT Peak Hugh ?0.79 ?[ 0.70 - 1.10 ] m/s LVOT VTI ? 12.84 ? cm MV E Peak Hugh ?0.96 ?[ 0.60 - 1.30 ] m/s MV A Peak Hugh ?1.05 ?[ 1.00 - 1.20 ] m/s MV Decel Time ?250 ? [ 104 - 258 ] msec TR Peak Hugh ?2.25 ?[ 1.00 - 2.80 ] m/s TR Peak PG ? 20 ?mmHg Lateral E` ? 0.11 ?[ 0.10 - 0.15 ] m/s E` ? 0.09 ?m/s E/E` ? 9 Measurement ?Value ?Normal Range ?Measurement ?Value ?Normal Range 2D/M Mode ?Doppler - FINDINGS: Interpretation Site: Exam was interpreted at [facility]. Left Ventricle: Normal left ventricular systolic function. No focal wall motion abnormalities. Normal left ventricular size. Mild concentric left ventricular hypertrophy. Indeterminate diastolic function. Ejection fraction is visually estimated at 55-60 %. Ejection fraction is measured at 57 %. Global Longitudinal Strain is -13 %. GLS is abnormal. Right Ventricle: Normal right ventricular size. Normal right ventricular systolic function. Left Atrium: There is moderate enlargement of left atrium. Right Atrium: The right atrium is normal in size. Atrial Septum: Normal atrial septum. Mitral Valve: Normal appearance of the mitral valve. Mild mitral valve regurgitation. There is no hemodynamically significant mitral stenosis by Doppler. Aortic Valve: Normal appearance of the aortic valve. No evidence of hemodynamically significant aortic stenosis by Doppler. Trace aortic valve regurgitation. Tricuspid Valve: Normal appearance of the tricuspid valve. Normal right ventricular systolic pressure. Estimated peak RVSP is 25 mmHg. Mild tricuspid regurgitation. Pulmonic Valve: Normal appearance of the pulmonic valve. No pulmonic stenosis. Trivial regurgitation in the pulmonic valve. Pericardium: Normal pericardium with no significant pericardial effusion. Aorta: Normal aortic root. IVC: Normal size and normal respiratory collapse consistent with normal right atrial pressure (<5 mmHg). CONCLUSIONS: Normal left ventricular systolic function. No focal wall motion abnormalities. Normal left ventricular size. Mild concentric left ventricular hypertrophy. Indeterminate diastolic function. Ejection fraction is visually estimated at 55-60 %. Ejection fraction is measured at 57 %. Global Longitudinal Strain is -13 %. GLS is abnormal. There is moderate enlargement of left atrium. Mild mitral valve regurgitation. Mild tricuspid regurgitation. Atrial fibrillation. Electronically Signed By: Les Juan MD 2023-09-18 12:32:52 GRAIN ELEVATOR SUPERINTENDENT Procedure Note Les Juan MD - 09/18/2023 [facility] Medical Group Cardiology [address] [facility] [address] [address] [address] [facility] [address] [address] P:[phone] P:[phone] Echocardiographic Report Patient Name: LLUVIA JONES S : 1950 Study Date: 09/18/2023 11:24:24 AM Gender: F Tech: Location: [place] Ref Provider: REED TODD Height(Cm): 160 BSA: 2.13 Weight(Kg): 102.1 Heart Rate: 85 BP: 109 / 97 Quality: Good Order Provider: REED TODD PROCEDURES: Echocardiographic Report: Transthoracic echocardiogram with complete 2D, M-Mode, and color Dopplerexamination. INDICATIONS: Atrial Fibrillation, and Mitral Regurgitation. Measurements: 2D/M ModeDoppler Measurement Value Normal Range MeasurementValue Normal Range LVIDd 2D 4.24 [ 3.80 - 5.20 ] cm KAREN Vmax2.44 [ 2.00 - 4.00 ] cm2 LVIDs 2D 3.50 [ 2.20 - 3.50 ] cm AV Mean PG2 mmHg LVPWd 2D 1.15 [ 0.60 - 0.90 ] cm AV Peak Vel0.95 [ 1.00 - 1.70 ] m/s IVSd 2D 1.22 [ 0.60 - 0.90 ] cm AV Peak PG4 mmHg LA Volume Index 43 [ 16 - 34 ] cc/m2 AV VTI16.16 cm LVOT Diam 1.93 [ 1.70 - 2.10 ] cm LVOT Peak Hugh 0.79 [ 0.70 - 1.10 ] m/s LVOT VTI 12.84 cm MV E Peak Hugh 0.96 [ 0.60 - 1.30 ] m/s MV A Peak Hugh 1.05 [ 1.00 - 1.20 ] m/s MV Decel Time 250 [ 104 - 258 ] msec TR Peak Hugh 2.25 [ 1.00 - 2.80 ] m/s TR Peak PG 20 mmHg Lateral E` 0.11 [ 0.10 - 0.15 ] m/s E` 0.09 m/s E/E` 9 Measurement Value Normal Range MeasurementValue Normal Range 2D/M ModeDoppler - FINDINGS: Interpretation Site: Exam was interpreted at [facility]. Left Ventricle: Normal left ventricular systolic function. No focal wall motionabnormalities. Normal left ventricular size. Mild concentric left ventricular hypertrophy.Indeterminate diastolic function. Ejection fraction is visually estimated at 55-60 %.Ejection fraction is measured at 57 %. Global Longitudinal Strain is -13 %. GLS isabnormal. Right Ventricle: Normal right ventricular size. Normal right ventricular systolicfunction. Left Atrium: There is moderate enlargement of left atrium. Right Atrium: The right atrium is normal in size. Atrial Septum: Normal atrial septum. Mitral Valve: Normal appearance of the mitral valve. Mild mitral valve regurgitation.There is no hemodynamically significant mitral stenosis by Doppler. Aortic Valve: Normal appearance of the aortic valve. No evidence of hemodynamicallysignificant aortic stenosis by Doppler. Trace aortic valve regurgitation. Tricuspid Valve: Normal appearance of the tricuspid valve. Normal right ventricularsystolic pressure. Estimated peak RVSP is 25 mmHg. Mild tricuspid regurgitation. Pulmonic Valve: Normal appearance of the pulmonic valve. No pulmonic stenosis. Trivialregurgitation in the pulmonic valve. Pericardium: Normal pericardium with no significant pericardial effusion. Aorta: Normal aortic root. IVC: Normal size and normal respiratory collapse consistent with normal rightatrial pressure (<5 mmHg). CONCLUSIONS: Normal left ventricular systolic function. No focal wall motionabnormalities. Normal left ventricular size. Mild concentric left ventricular hypertrophy.Indeterminate diastolic function. Ejection fraction is visually estimated at 55-60 %.Ejection fraction is measured at 57 %. Global Longitudinal Strain is -13 %. GLS isabnormal. There is moderate enlargement of left atrium. Mild mitral valve regurgitation. Mild tricuspid regurgitation. Atrial fibrillation. Electronically Signed By: Les Juan MD 2023-09-18 12:32:52 GRAIN ELEVATOR SUPERINTENDENT Reed Todd NP CV ECHO PROCEDURES Final Result documented in this encounter Visit Diagnoses Diagnosis Nonrheumatic mitral valve regurgitation documented in this encounter Care Teams Integration Aide Relationship Specialty Start Date End Date Rinku Beasley MD [address] [place] [address] PCP - General 09/08/19 documented as of this encounter
--- OUTSIDE RECORDS SUMMARY | 2024-10-06 05:35 | XMS_ITS | Encounter Summary ---
Author Organization [facility] Healthcare Address [address] [place] [address] Care Team Providers Care Aircraft Lay Out Worker Name Role Phone Rinku Beasley MD Primary Care Provider Encounter Details Date Type Department Care Team (Late st Contact Info) Description 10/08/2023 1:45 PM CLINICAL SAFETY SPECIALIST Office Visit [facility] Cardiology [address] [place] [address] Saul Tee MD [address] [facility] [address] [place], [place] [id number] Paroxysmal atrial fibrillation (CMS/HCC) (HCC) (Primary Dx); Nonrheumatic mitral valve regurgitation; Lipid screening Social History Tobacco Use Types Packs/Day Years [...] on file Legal Sex Female 12:33 AM CLINICAL SAFETY SPECIALIST Gender Identity Not on file Sexual Orientation Not on file documented as of this encounter Last Filed Vital Signs Vital Sign Reading Time Taken Comments Blood Pressure 118/78 10/08/2023 1:22 PM CLINICAL SAFETY SPECIALIST Pulse 74 10/08/2023 1:22 PM CLINICAL SAFETY SPECIALIST Temperature - - Respiratory Rate - - Oxygen Saturation 97% 10/08/2023 1:22 PM CLINICAL SAFETY SPECIALIST Inhaled Oxygen Concentration - - Weight 101.2 kg (223 lb) 10/08/2023 1:22 PM CLINICAL SAFETY SPECIALIST Height 160 cm (5' 3 ) 10/08/2023 1:22 PM CLINICAL SAFETY SPECIALIST Body Mass Index 39.5 10/08/2023 1:22 PM CLINICAL SAFETY SPECIALIST documented in this encounter Progress Notes * Saul Tee MD - 10/08/2023 1:45 PM CST [facility] 10/08/2023 Lluvia Castaneda is a 73 y.o. female who presents for follow up of atrial fibrillation. This is a patient that I saw in consultation in the early part of 2019 with the referral for valvular heart disease. She was found to have a very small amount of mitral regurgitation which I did not think was clinically significant and I did not anticipate recommending ongoing follow-up. The patient was then seenby her primary care physician in March of the summer after having a sinus infection and was in the office was found to be in atrial fibrillation. She was treated with amiodarone and metoprololfor rate control and started on apixaban for systemic anticoagulation. An echocardiogram was done wh ich demonstrated her LV ejection fraction was slightly [...] is obesity with a BMI of 39.5. The patient underwent outpatient DC cardioversion on 06/07/2021 restoring sinus rhythm. Following cardioversion and sikhism of sinus rhythm she felt much better. We began the process of we weaning down medications. Amiodarone was reduced to 200 mg daily. Eventually the drug was reduced even further to 100 mg every other day. The patient did have some symptoms of dyspnea in 2021 which led to a Holter monitor that did not demonstrate any arrhythmias of significance. The patient was eventually taken off of amiodarone altogether at the request of the PCP as he was concerned about the possibilityof lung toxicity. As I dictated in my previous notes I was not highly suspicious of that since she was on an extremely low dosage. She was however seen in the fall of 2022 in the office for follow-upand was back in atrial fibrillation at that time. She was reporting some shortness of breath with modest activity and is attributing this to being back in atrial fibrillation otherwise she is essentially asymptomatic. I recommended an attempt at restoring sinus rhythm at that time. Also discussed th e option of electrophysiology consultation . She presents back to the office for a follow-up appointment. The cardioversion that I recommendedabove is scheduled to occur later this month. [...] want her on that medication is they were concerned about pulmonary toxicity REVIEW OF SYSTEMS General ROS: negative for - chills, fatigue, fever, malaise, night sweats, weight gain or weight loss Psychological ROS: negative for - anxiety, depression, memory difficulties or sleep disturbances Ophthalmic ROS: negative for - blurry vision, decreased vision, loss of vision or scotomata ENT ROS: negative for - epistaxis, headaches, hearing change, nasal congestion, nasal discharge, sore throat, vertigo or visual changes Hematological and Lymphatic ROS: negative for - bleeding problems, blood clots, bruising, fatigue or weight loss Endocrine ROS: negative for - hot flashes, palpitations, polydipsia/polyuria or unexpected weight changes Respiratory ROS: negative for - cough, hemoptysis, orthopnea, shortness of breath, tachypnea or wheezing Cardiovascular ROS: negative for - chest pain, dyspnea on exertion, edema, irregular heartbeat, loss of consciousness, murmur, orthopnea, palpitations, paroxysmal nocturnal dyspnea, rapid heart rate or shortness of breath Gastrointestinal ROS: negative for - abdominal pain, appetite loss, blood in stools, constipation, diarrhea, gas/bloating, heartburn, hematemesis, melena or nausea/vomiting Genito-Urinary ROS: negative for - dysuria, erectile dysfunction or hematuria Musculoskeletal ROS: negative for - joint pain, muscle pain or muscular weakness Dermatological ROS: negative for dry skin, eczema, pruritus and rash HOME MEDICATIONS Current Outpatient Medications: acetaminophen (TYLENOL) 325 mg tablet, Take 500 mg by mouth daily , Disp: , Rfl: acidophilus-pectin, citrus 100 million cell-10 mg capsule, Take by mouth, Disp: , Rfl: azelastine (ASTELIN) 137 mcg (0.1 %) nasal spray, Administer 1 spray into each nostril daily, Disp:, Rfl: cranberry fruit extract (CRANBERRY ORAL), Take by mouth, Disp: , Rfl: diphenhydrAMINE (BENADRYL) 25 mg capsule, Take 1 tablet/capsule (25 mg total) by mouth nightly as needed for itching, Disp: , Rfl: Eliquis 5 mg tablet, TAKE 1 TABLET (5 MG) BY ORAL ROUTE 2 TIMES PER DAY, Disp: , Rfl: fluticasone propionate (FLONASE) 50 mcg/actuation nasal spray, Administer 2 sprays into each nostril daily, Disp: , Rfl: metoprolol tartrate (LOPRESSOR) 50 mg immediate release tablet, Take 2 tablets (100 mg total) by mouth 2 (two) times a day, Disp: , Rfl: mrmiyahybdjj-xtywurmu-eukgnv tablet, Take 1 tablet by mouth daily, Disp: , Rfl: omeprazole (PriLOSEC) 40 mg capsule, Take 1 capsule (40 mg total) by mouth daily, Disp: , Rfl: spironolactone (ALDACTONE) 50 mg tablet, Take 1 tablet (50 mg total) by mouth daily, Disp: , Rfl: TURMERIC ORAL, Take by mouth, Disp: , Rfl: amiodarone (PACERONE) 200 mg tablet, Take 1 tablet (200 mg total) by mouth daily (Patient not taking: Reported on 09/17/2023), Disp: , Rfl: cholecalciferol (VITAMIN D-3) 44953 unit capsule, Take 1 Units by mouth daily (Patient not taking: Reported on 09/17/2023), Disp: , Rfl: losartan (COZAAR) 50 mg tablet, Take 0.5 tablets (25 mg total) by mouth daily (Patient not taking: Reported on 07/18/2023), Disp: , Rfl: LABS AND OTHER DIAGNOSTIC TESTS No results found for: CHOL No results found for: HDL No results found for: LDLCALC No results found for: TRIG No results found for: CHOLHDL No results found for: WBC , HGB , HCT , MCV , PLT No lab exists for component: LABALBU PHYSICAL EXAM Vitals BP 118/78 (BP Location: Right arm, Patient Position: Sitting) Pulse 74 Ht 160 cm (5' 3 ) Wt 101.2 kg (223 lb) SpO2 97% BMI 39.50 kg/m?? Physical Examination: General appearance - alert, overweight lady, and in no distress, oriented to person, place, and time and acyanotic, in no respiratory distress Mental status - affect appropriate to mood Eyes - extraocular eye movements intact, sclera anicteric, no pallor Ears - external earsappear normal, hearing grossly normal bilaterally Nose - normal and patent, no erythema or discharge Mouth - mucous membranes moist, pharynx appears normal, dental hygiene good and tongue normal Neck - supple, no significant neck masses, carotids upstroke normal bilaterally, no bruits, no JVD Chest - clear to auscultation, no wheezes, rales or rhonchi, symmetric air entry, no tachypnea, retractions or cyanosis Heart - normal rate, irregularly irregular, normal S1, S2, no murmurs, rubs, clicks or gallops, no JVD Abdomen - soft, nontender, nondistended, no masses or organomegaly bowel sounds normal Neurological - alert, oriented, normal speech, no focal findings or movement disorder noted Musculoskeletal - no joint tenderness, deformity or swelling, no muscular tenderness noted Extremities - peripheral pulses normal, no pedal edema, no clubbing or cyanosis Skin - normal coloration and turgor, no rashes, no suspicious skin lesions noted ASSESSMENT Persistent atrial fibrillation Obesity Mild mitral regurgitation PLAN/RECOMMENDATIONS DC cardioversion is scheduled for later this month at [facility] Will make further plans regarding management of her arrhythmia depending on her response to cardioversion At this time and will not consider resuming amiodarone treatment Saul Tee MD ICAL SAFETY SPECIALIST documented in this encounter Plan of Treatment Not on file documented as of this encounter Procedures Procedure Name Priority Date/Time Associated Diagnosis Comments POCT LIPID PANEL Routine 10/08/2023 1:35 PM CLINICAL SAFETY SPECIALIST Lipid screening documented in this encounter Results * POCT lipid panel (10/08/2023 1:35 PM CLINICAL SAFETY SPECIALIST) Cholesterol, POC 214 mg/dL HDL, POC 57 mg/dL Triglycerides, POC 260 mg/dL LDL Cholesterol POC 105 mg/dL Chol/HDL Ratio, POC 1.9 Non-HDL Cholesterol, POC 157 mg/dL Cholesterol Total, POC 214 mg/dL Capillary blood 10/08/2023 1 :35 PM CLINICAL SAFETY SPECIALIST us Saul Tee MD POINT OF CARE TEST ORDER SUN Edited Result - Final documented in this encounter Visit Diagnoses Diagnosis Paroxysmal atrial fibrillation (CMS/HCC) (HCC)- Primary Atrial fibrillation Nonrheumatic mitral valve regurgitation Lipid screening Screening for lipoid disorders documented in this encounter Care Teams Aircraft Lay Out Worker Relationship Specialty Start Date End Date Rinku Beasley MD [address] [place] [address] PCP - General 09/08/19 documented as of this encounter
--- OUTSIDE RECORDS SUMMARY | 2024-10-06 05:35 | XMS_ITS | Encounter Summary ---
Author Organization [facility] Address [address] [place] [address] Care Team Providers Care Foam Rubber Molder Name Role Phone Rinku Beasley MD Primary Care Provider + Encounter Details Date Type Department Care Team (Late st Contact Info) Description 12/20/2023 External Device Data STL ABSTRACTION Provider, Abstract [...] st Contact Info) Description 11/09/2024 1:15 PM WOOD LAST MAKER Office Visit [facility] Oncology and Hematology - [place] [address] [place] [address] [facility] [address] [place] [address] Jacinto Arzate MD [address] [facility] [address] [place] [address] documented as of this encounter Visit Diagnoses Not on filedocumented in this encounter Care Teams Foam Rubber Molder Relationship Specialty Start Date End Date Rinku Beasley MD [address] [place] [address] PCP - General Internal Medicine 05/22/23 documented as of this encounter
--- OUTSIDE RECORDS SUMMARY | 2024-10-06 05:35 | XMS_ITS | Encounter Summary ---
Author Organization [facility] Address [address] [place] [address] Care Team Providers Care Hydrographic Engineer Name Role Phone Rinku Beasley MD Primary Care Provider + Encounter Details Date Type Department Care Team (Late st Contact Info) Description 05/14/2024 External Device Data STL ABSTRACTION Provider, Abstract [...] st Contact Info) Description 11/09/2024 1:15 PM AUTO SPECIALTY SERVICES MANAGER Office Visit [facility] Oncology and Hematology - [place] [address] [place] [address] [facility] [address] [place] [address] Jacinto Arzate MD [address] [facility] [address] [place] [address] documented as of this encounter Visit Diagnoses Not on filedocumented in this encounter Care Teams Hydrographic Engineer Relationship Specialty Start Date End Date Rinku Beasley MD [address] [place] [address] PCP - General Internal Medicine 05/22/23 documented as of this encounter
--- OUTSIDE RECORDS SUMMARY | 2024-10-06 05:35 | XMS_ITS | Encounter Summary ---
Author Organization [facility] Address [address] [place] [address] Phone Care Team Providers Care Digital Project Coordinator Name Role Phone Rinku Beasley MD Primary Care Provider [phone] Encounter Details Date Type Department Care Team (Late st Contact Info) Description 06/03/2024 10:35 AM CDT Lab [facility] Endocrinology Metabolism and Lipid [address] [facility] 8th [place] [address] [place] [address] Paroxysmal atrial fibrillation (CMS/HCC) (HCC); High risk medication use Social History Tobacco Use Types Packs/Day Years [...] on file Legal Sex Female 12:33 AM THORACIC SURGEON Gender Identity Not on file Sexual Orientation Not on file documented as of this encounter Plan of Treatment Not on file documented as of this encounter Procedures Procedure Name Priority Date/Time Associated Diagnosis Comments BASIC METABOLIC PANEL Routine 06/03/2024 10:08 AM CDT Paroxysmal atrial fibrillation (CMS/HCC) (HCC) High risk medication use documented in this encounter Results * Basic metabolic panel (06/03/2024 10:08 AM CDT) Glucose 95 64 - 99 mg/dL [facility] Comment: NONFASTING GLUCOSE RANGE = 64-199 mg/dL FASTING GLUCOSE 64 - 99 = NORMAL FASTING GLUCOSE 100 - 125 = IMPAIRED FASTING GLUCOSE FASTING GLUCOSE >=126 = PROVISIONAL DIAGNOSIS OF DIABETES Potassium 4.2 3.3 - 5.1 mmol/L [facility] Creatinine 0.89 0.60 - 1.10 mg/dL [facility] BUN 13 7 - 23 mg/dL [facility] Sodium 141 135 - 145 mmol/L [facility] Chloride 104 95 - 107 mmol/L [facility] CO2 Content 24 21 - 29 mmol/L [facility] Calcium 9.6 8.6 - 10.3 mg/dL [facility] eGFR 69.3 >60.0 mL/min/1.7 3 m2 [facility] Blood 06/03/2024 10:0 8 AM CDT 06/03/2024 11:00 AM CDT us Idris Rosas MD PhD LAB BLOOD ORDERABLE S Final Result [facility] documented in this encounter Visit Diagnoses Diagnosis Paroxysmal atrial fibrillation (CMS/HCC) (HCC) Atrial fibrillation High risk medication use documented in this encounter Care Teams Digital Project Coordinator Relationship Specialty Start Date End Date Rinku Beasley MD [address] [place] [address] PCP - General 09/08/19 documented as of this encounter
--- OUTSIDE RECORDS SUMMARY | 2024-10-06 05:35 | XMS_ITS | Encounter Summary ---
Author Organization [facility] Address [address] [place] [address] Phone Care Team Providers Care Dance Teacher Name Role Phone Rinku Beasley MD Primary Care Provider + [phone] Reason for Referral * Cardiology (Routine) - Authorized Specialty Diagnoses / Procedures Referred By Contac t Referred To Contact Diagnoses Paroxysmal atrial fibrillation (CMS/HCC) (HCC) High risk medication use Procedures ECG 12 lead Idris Rosas MD PhD [address] [address] Phone: tel: fax: External Order Referral ID Status Reason Start Date Expiration Date V isits Requested Visits Authorized [id number] Authorized 08/24/2024 09/23/2025 4 4 AZZO POLISHER HELPER Encounter Details Date Type Department Care Team (Late st Contact Info) Description 08/24/2024 Orders Only [facility] Cardiology [address] [facility] 8th [place] [address] [place] [address] Idris Rosas MD PhD [address] [facility] [address] [place] [address] Paroxysmal atrial fibrillation (CMS/HCC) (HCC) (Primary Dx); High risk medication use Social History Tobacco [...] on file Legal Sex Female 12:33 AM TERRAZZO POLISHER HELPER Gender Identity Not on file Sexual Orientation Not on file documented as of this encounter Plan of Treatment Scheduled Orders Name Type Priority Associated Diagnoses Orde r Schedule ECG 12 lead ECG Routine Paroxysmal atrial fibrillation (CMS/HCC) (HCC) High risk medication use 4 Occurrences starting 08/24/2024 until 11/22/2024 Basic metabolic panel Lab Routine Paroxysmal atrial fibrillation (CMS/HCC) (HCC) High risk medication use 4 Occurrences starting 08/24/2024 until 11/22/2024 documented as of this encounter Visit Diagnoses Diagnosis Paroxysmal atrial fibrillation (CMS/HCC) (HCC)- Primary Atrial fibrillation High risk medication use documented in this encounter Care Teams Dance Teacher Relationship Specialty Start Date End Date Rinku Beasley MD [address] [place] [address] PCP - General 09/08/19 documented as of this encounter
--- OUTSIDE RECORDS SUMMARY | 2024-10-06 05:35 | XMS_ITS | Encounter Summary ---
Author Organization [facility] Healthcare Address [address] [place] [address] Care Team Providers Care Bread Jockey Name Role Phone Rinku Beasley MD Primary Care Provider [phone] Reason for Visit * Reason Comments Follow-up 2 mo follow up on david MERCADO Encounter Details Date Type Department Care Team (Latest Contact Info) Description 02/05/2024 10:15 AM CDT Office Visit [facility] Medical Group Cardiology at [address] [place] [address] Saul Tee MD [address] [facility] [address] [place] [address] Paroxysmal atrial fibrillation (CMS/HCC) (HCC) (Primary Dx); Nonrheumatic mitral valve regurgitation Social History Tobacco [...] on file Legal Sex Female 12:33 AM KITCHEN FOOD SERVER Gender Identity Not on file Sexual Orientation Not on file documented as of this encounter Last Filed Vital Signs Vital Sign Reading Time Taken Comments Blood Pressure 128/78 02/05/2024 10:05 AM CDT Pulse 63 02/05/2024 10:05 AM CDT Temperature - - Respiratory Rate - - Oxygen Saturation 94% 02/05/2024 10:05 AM CDT Inhaled Oxygen Concentration - - Weight 101.6 kg (224 lb) 02/05/2024 10:05 AM CDT Height 160 cm (5' 3 ) 02/05/2024 10:05 AM CDT Body Mass Index 39.68 02/05/2024 10:05 AM CDT documented in this encounter Progress Notes * Saul Tee MD - 02/05/2024 10:15 AM CDT [facility] 02/05/2024 Lluvia Castaneda is a 73 y.o. female [...] discussed th e option of electrophysiology consultation She presents to the office today for scheduled follow-up. I saw this patient in September of this year and she was back in atrial fibrillation. Conversation was had regarding rate versus rhythm controlstrategy. The patient was reporting symptoms of feeling less stamina in atrial fibrillation and wasnot desiring simple rate control. She was placed on flecainide for her atrial fibrillation and cardioverted electrically to sinus rhythm in September. Unfortunately she reverted back to atrial fibrillation within the next couple of weeks. She was then referred for EP consultation at [place] with Dr. Rosas. She was then transitioned to Tikosyn and cardioverted electrically at [place]. She saw the nurse practitioner in our office after that in November of this year and was doing okay at that time. Her electrocardiogram today in the office shows sinus rhythm with a heart rate of 65. She is very pleasedwith how she feels in her sinus rhythm and with the response to dofetilide following cardioversion REVIEW OF SYSTEMS General ROS: negative for [...] mg by mouth daily, Disp: , Rfl: cyanocobalamin, vitamin B-12, 5,000 mcg tablet, sublingual, Place under the tongue, Disp: , Rfl: diphenhydrAMINE (BENADRYL) 25 mg [...] 2 TIMES PER DAY, Disp: , Rfl: ferrous sulfate 325 mg (65 mg of elemental iron) tablet, Take 1 tablet (325 mg total) by mouth daily with breakfast, Disp: , Rfl: fluticasone propionate (FLONASE) 50 mcg/actuation nasal spray, Administer 2 sprays into each nostril daily, Disp: , Rfl: metoprolol XL (TOPROL-XL) 100 mg 24 hr tablet, Take 0.5 tablets (50 mg total) by mouth daily, Disp:, Rfl: nwdxefhfbrbp-gxuzvawy-hprdwm tablet, Take 1 tablet by mouth daily, Disp: , Rfl: omeprazole (PriLOSEC) 40 mg capsule, Take 1 capsule (40 mg total) by mouth daily, Disp: , Rfl: spironolactone (ALDACTONE) 50 mg tablet, Take 1 tablet (50 mg total) by mouth daily, Disp: , Rfl: acidophilus-pectin, citrus 100 million cell-10 mg capsule, Take by mouth (Patient not taking: Reported on 11/28/2023), Disp: , Rfl: cholecalciferol (VITAMIN D-3) 72768 unit capsule, Take 1 Units by mouth daily (Patient not taking: Reported on 11/28/2023), Disp: , Rfl: TURMERIC ORAL, Take 500 mg by mouth daily (Patient not taking: Reported on 02/05/2024), Disp: , Rfl: LABS AND OTHER DIAGNOSTIC TESTS Lab Results Component Value Date CHOL 212 (H) 11/19/2023 Lab Results Component Value Date HDL 55 11/19/2023 Lab Results Component Value Date LDLCALC 136 (H) 11/19/2023 Lab Results Component Value Date TRIG 104 11/19/2023 Lab Results Component Value Date CHOLHDL 4 11/19/2023 Lab Results Component Value Date WBC 10.1 (H) 11/22/2023 HGB 11.4 (L) 11/22/2023 HCT 35.1 (L) 11/22/2023 MCV 88.9 11/22/2023 No lab exists for component: LABALBU PHYSICAL EXAM Vitals BP 128/78 (BP Location: Left arm, Patient Position: Sitting) Pulse 63 Ht 160 cm (5' 3 ) Wt 101.6 kg (224 lb) SpO2 94% BMI 39.68 kg/m?? Physical Examination: General appearance - alert, [...] atrial fibrillation Obesity Mild mitral regurgitation PLAN/RECOMMENDATIONS Continue dofetilide and anticoagulation Follow-up 6 months or p.r.n. Saul Tee MD documented in this encounter Miscellaneous Notes * Addendum Note - Nilda Steve MA - 02/05/2024 10:15 AM CDTAddended by: NILDA TSEVE on: 02/06/2024 08:41 AM Modules accepted: Orders documented in this encounter Plan of Treatment Not on file documented as of this encounter Procedures Procedure Name Priority Date/Time Associated Diagnosis Comments ECG 12-LEAD Routine 02/05/2024 Paroxysmal atrial fibrillation (CMS/HCC) ([facility]) documented in this encounter Results * ECG 12 lead (02/05/2024) Saul Tee MD ECG ORDERABLES Final Re sult documented in this encounter Visit Diagnoses Diagnosis Paroxysmal atrial fibrillation (CMS/HCC) (HCC)- Primary Atrial fibrillation Nonrheumatic mitral valve regurgitation documented in this encounter Historical Medications * This list may reflect changes made after this encounter. ferrous sulfate 325 mg (65 mg of elemental iron) tabletIndication s:Iron Deficiency Anemia Take 1 tablet (325 mg total) by mouth daily with breakfast cyanocobalamin, vitamin B-12, 5,000 mcg tablet, sublingual Place under the tongue every other day added in this encounter Care Teams Bread Jockey Relationship Specialty Start Date End Date Rinku Beasley MD [address] [place] [address] PCP - General 09/08/19 documented as of this encounter
--- OUTSIDE RECORDS SUMMARY | 2024-10-06 05:35 | XMS_ITS | Encounter Summary ---
Author Organization [facility] SAIDA Agrawal [facility] Address [address] [place] [address] Care Team Providers Care Roofing Machine Operator Name Role Phone Rinku Beasley MD Primary Care Provider + Reason for Visit * Reason Comments Establish Care Encounter Details Date Type Department Care Team (Late st Contact Info) Description 08/12/2023 10:30 AM FOOD SCIENCE PROFESSOR Office Visit [facility] Oncology and Hematology - [address] [facility] [address] [place] [address] Jacinto Arzate MD [address] [place] [address] Chronic anemia (Primary Dx) Social [...] Sign Reading Time Taken Comments Blood Pressure 138/82 08/12/2023 9:42 AM FOOD SCIENCE PROFESSOR Pulse 88 08/12/2023 9:42 AM FOOD SCIENCE PROFESSOR Temperature 36.1 ??C (96.9 ??F) 08/12/2023 9:42 AM CS T Respiratory Rate 10 08/12/2023 9:42 AM FOOD SCIENCE PROFESSOR Oxygen Saturation 99% 08/12/2023 9:42 AM FOOD SCIENCE PROFESSOR Inhaled Oxygen Concentration - - Weight 99.3 kg (219 lb) 08/12/2023 9:42 AM FOOD SCIENCE PROFESSOR Height 160 cm (5' 3 ) 08/12/2023 9:42 AM FOOD SCIENCE PROFESSOR Body Mass Index 38.79 08/12/2023 9:42 AM FOOD SCIENCE PROFESSOR documented in this encounter Progress Notes * Jacinto Arzate MD - 08/12/2023 10:23 AM CST Hematology-oncology consult Note Requesting Physician Rinku Beasley MD Primary Care Physician Rinku Beasley MD Problem list There is no problem list on file for this patient. Previous TREATMENT ? Measurable Disease ? Reason for Visit Lluvia Castaneda is a 73 y.o. female who was referred for consultation for anemia. History of present illness This is a pleasant 73-year-old female with history of hypertension and atrial fibrillation along with history of GERD for which she has been taking omeprazole since late 20s. She has been diagnosed with anemia for last 5 years duration. She complain of tiredness and fatigue. Denies any bleeding including melena hematochezia. She denies being a vegetarian. She ate meat infrequently. She used to take oral iron but discontinued 2 years ago as it was not working. Patient had colonoscopy done on July 24, 2023 that showed 1 rectal polyp benign. Patient had EGD done on March 2022 that showed nonerosive reflux disease and gastric polyps. Her labs from April 2023 showed hemoglobin of 10.9 but normal iron studies. No other new complaints. Past Medical History Past Medical History: Diagnosis Date Arthritis Atrial fibrillation Hypertension Osteoporosis Surgical History Past Surgical History: Procedure Laterality Date HX CHOLECYSTECTOMY HX KNEE REPLACEMENT HX SPINAL SURGERY Medications Current Outpatient Medications Medication Sig Dispense Refill apixaban (Eliquis) 5 mg tablet TAKE 1 TABLET (5 MG) BY ORAL ROUTE 2 TIMES PER DAY metoprolol tartrate (LOPRESSOR) 50 mg tablet Take 100 mg by mouth 2 times daily. spironolactone (ALDACTONE) 50 mg tablet Take 50 mg by mouth daily. ruzoqaz-jdih-yooeu-oreg-capryl 100 mg-150 mg- 50 mg-150 mg Capsule Take by mouth. Cranberry 500 mg Capsule Take by mouth. acetaminophen (TYLENOL) 325 mg tablet Take 500 mg by mouth daily. acidophilus-pectin, citrus 100 million cell-10 mg Capsule Take by mouth. yeddgcfykdwmx-esypptes-mcluem (CENTRUM SILVER) Tablet Take 1 Tablet by mouth daily. omeprazole (PriLOSEC) 40 mg Capsule, Delayed Release(E.C.) Take 40 mg by mouth daily. diphenhydrAMINE (BENADRYL) 25 mg capsule Take 25 mg by mouth. No current facility-administered medications for this visit. Allergies Allergies Allergen Reactions Hydrocodone-Acetaminophen Hives, Itching and Rash Red Dye Other (See Comments) and Rash Itching hives rash, Itching hives rash, Immunizations: There is no immunization history on file for this patient. Family History Family History Problem Relation Name Age of Onset Testicular Cancer Father Melanoma Brother Colon Cancer Brother Social History Social History Tobacco Use Smoking status: Never Smokeless tobacco: Never Substance Use Topics Alcohol use: Never Review of Systems Constitutional: Patient did not mention fever; no night sweats; no anorexia; no weight loss; complain of tiredness and fatigue NEENT: Patient did not mention headache; no change in vision; no change in hearing; no sore throat;no dysphagia Respiratory: Patient did not mention shortness of breath; no pleuritic chest pain; no cough; no hemoptysis Cardiac: Patient did not mention cardiac-like chest pain; no palpitations; no orthopnea; no PND; noDOE Breasts: Patient did not mention tenderness; no masses GI: Patient did not mention abdominal pain; no nausea; no vomiting; no diarrhea; no hematochezia; no melena : Patient did not mention dysuria; no frequency; no hesitancy; no hematuria EVENING SITTER: Musculosketetal: Patient did not mention bone pain; no arthralgia; no joint swelling; no myalgia; Skin: Patient did not mention pruritis; no rash; no petechiae; no ecchymoses Endocrine: Patient did not mention polydipsia; no polyuria; no unusual weight gain Neuro: Patient did not mention headache; no change in vision; no sensory changes; no muscle weakness; no confusion; no seizures Psych: Patient did not mention anxiety; no depression; Physical Exam Vitals: As per nursing note Constitutional: Well developed, well nourished, no acute distress, non-toxic appearance Teeth and gum. No signs of infection or swelling. Eyes: PERRL, conjunctiva normal HEENT: Atraumatic, external ears normal, nose normal, oropharynx moist, no pharyngeal exudates. no sinus tenderness Neck- normal range of motion, no tenderness, supple Respiratory: No respiratory distress, normal breath sounds, no rales, no wheezing Cardiovascular: Normal rate, normal rhythm, no murmurs, no gallops, no rubs GI: Soft, nondistended, normal bowel sounds, nontender, no splenomegaly, no hepatomegaly, no mass, no rebound, no guarding : No costovertebral angle tenderness Musculoskeletal: No edema, no tenderness, no deformities. Back- no tenderness Integument: Well hydrated, no rash, Digits and nails inspection normal Lymphatic: No lymphadenopathy noted Neurologic: Alert & oriented x 3, CN 2-12 normal, normal motor function, normal sensory function, no focal deficits noted Psychiatric: Speech and behavior appropriate ? labs No results found for this or any previous visit (from the past 24 hour(s)). Labs from June 2023 showed WBC 6.8 hemoglobin 11 platelet 350,000 neutrophils 62% lymphocyte 26%creatinine 1.04 with GFR 52 iron 67 ferritin 38 vitamin B12 524 Pathology ? Imaging & Other Studies Performance Status? Assessment / Plan: ? Normocytic anemia. Patient is a 73-year-old female with history of atrial fibrillation and hypertension along with gastroesophageal reflux disease. She has been on chronic proton pump inhibitor. She complain of mild tiredness and fatigue but denies any bleeding and bruising. EGD from March2022 showed gastric polyp and nonerosive reflux disease. Colonoscopy from July 2023 showed rectal polyp. I have reviewed the labs from June that showed normal iron studies and normal vitamin B12 level with mild anemia. GFR was slightly low. Patient was on oral iron but discontinued couple ofyears ago as it was not working. This anemia could be secondary to nutritional deficiencies and poss ibility of underlying bone marrow disorder like myelodysplastic syndrome. I will repeat all work-upthat will include CBC with differential, CMP, erythropoietin level, soluble transferrin receptor, methylmalonic acid level, iron studies, vitamin B12 level and LDH. Based on the finding will decide about bone marrow aspiration and biopsy. I have answered all the questions to patient satisfaction. Follow-up in 2 weeks. Atrial fibrillation. She is on Eliquis. Hypertension. She is on Lopressor. GERD. She is on omeprazole. Thank you very much for allowing me to participate in Lluvia Castaneda's evaluation and management. Please feel free to contact if I can be of any further assistance in your patient???s care requiring hematology or oncology evaluation. Sincerely, ? ? Jacinto Arzate M.D. cell TOBACCO COUNSELING She is not a tobacco/nicotine user. Jacinto Arzate MD ,08/12/2023 10:23 AM ? Total time spent 60 minutes, two third of the total time spent counseling patient [id number]. CC:?Rinku Beasley MD SCIENCE PROFESSOR documented in this encounter Plan of Treatment Upcoming Encounters Date Type Department Care Team (Late st Contact Info) Description 11/09/2024 1:15 PM FOOD SCIENCE PROFESSOR Office Visit [facility] Oncology and Hematology - [place] [address] [facility] [address] [place] [address] Jacinto Arzate MD [address] [place] [address] documented as of this encounter Visit Diagnoses Diagnosis Chronic anemia- Primary Anemia, unspecified documented in this encounter Care Teams Roofing Machine Operator Relationship Specialty Start Date End Date Rinku Beasley MD [address] [place] [id number] PCP - General Internal Medicine 05/22/23 documented as of this encounter
--- OUTSIDE RECORDS SUMMARY | 2024-10-06 05:35 | XMS_ITS | Encounter Summary ---
Author Organization [facility] Healthcare Address [address] [place] [address] Care Team Providers Care Computer Programming Supervisor Name Role Phone Rinku Beasley MD Primary Care Provider [phone] Reason for Visit * Auth/Cert (Routine) Specialty Diagnoses / Procedures Referred By Contac t Referred To Contact Diagnoses Atrial fibrillation (CMS/HCC) (HCC) DRUG LOAD Procedures NA Referral ID Status Reason Start Date Expiration Date Visits Re quested Visits Authorized [id number] 1 1 Encounter Details Date Type Department Care Team (Late st Contact Info) Description 11/22/2023 8:10 AM COMPLIANCE AND CONTROL ANALYST - 11/22/2023 8:50 AM COMPLIANCE AND CONTROL ANALYST Surgery [facility] [address] [place] [address] Hari Wen MD PhD [id number] [address] [facility] [id number] Surgery Details Date/Time Status Location OR Service Patient Class Case Class Case Type Trauma Case? 11/22/2023 8:10 AM Posted [facility] MANAGER CCL [facility] Bedside Cardiovascular Inpatient Elective Panel 1 Procedure LRB Anes Op Region Wound Class Comments CARD[facility] [id number] N/A Choice Surgeon Surgeon Role Service Panel Hari Wen MD PhD Primary Cardiovascular 1 documented in this encounter Social History Tobacco [...] on file Legal Sex Female 12:33 AM COMPLIANCE AND CONTROL ANALYST Gender Identity Not on file Sexual Orientation Not on file documented as of this encounter Last Filed Vital Signs Vital Sign Reading Time Taken Comments Blood Pressure 119/78 11/22/2023 8:50 AM COMPLIANCE AND CONTROL ANALYST Pulse 55 11/22/2023 8:50 AM COMPLIANCE AND CONTROL ANALYST Temperature 36.3 ??C (97.3 ??F) 11/22/2023 6:52 AM CS T Respiratory Rate 16 11/22/2023 8:50 AM COMPLIANCE AND CONTROL ANALYST Oxygen Saturation 98% 11/22/2023 8:50 AM COMPLIANCE AND CONTROL ANALYST Inhaled Oxygen Concentration - - Weight 100 kg (220 lb 6.4 oz) 11/22/2023 4:23 AM COMPLIANCE AND CONTROL ANALYST Height 160 cm (5' 3 ) 11/19/2023 8:50 PM COMPLIANCE AND CONTROL ANALYST Body Mass Index 39.04 11/19/2023 8:50 PM COMPLIANCE AND CONTROL ANALYST documented in this encounter Discharge Summaries * Tamika Raman, DNP - 11/22/2023 12:20 PM CST Inpatient Discharge Summary BRIEF OVERVIEW Admitting Provider: Cristela Wharton MD Discharge Provider: Idris Rosas MD PhD Primary Care Physician at Discharge: Rinku Beasley MD [phone] Admission Date: 11/19/2023 Discharge Date: 11/22/2023 Admission Location: [facility] Problems/Diagnoses: Principal Problem: Atrial fibrillation (CMS/HCC) (HCC) Active Problems: Class 2 obesity with body mass index (BMI) of 38.0 to 38.9 in adult ATZ on CPAP Essential hypertension Resolved Problems: No resolved hospital problems. DETAILS OF HOSPITAL STAY Presenting Problem/History of Present Illness: Lluvia Castaneda is a 73 y.o. female with a history of atrial fibrillation, hypertension, and obesity presenting for Tikosyn drug load for atrial fibrillation. In brief, she recently established care with Dr. Rosas for her diagnosis of atrial fibrillation. She initially presented with atrial fibrillation in 2020 and mid range reduced systolic dysfunction, LVEF 41%. She was cardioverted and maintained on amiodarone and Eliquis. She then came off of amiodarone and had recurrence of atrial fibrillation in 2022, albeit this time with recovered LV systolic function and unremarkable MPI. At one point she trialed flecainide and experienced bradycardia. She is symptomatic from atrial fibrillation with fatigue, dyspnea, and lightheadedness. She then established care with Dr. Rosas last week and is now directly admitted for Tikosyn loading. She has never missed a dose of Eliquis, last dose this morning. Since she was seen last, her metoprolol tartrate 50 mg BID was converted to metoprolol succinate 50mg daily. She has experienced a significant increase in palpitations and rapid ventricular response. At times her heart rate would exceed 160-170 BPM. This was associated with dyspnea and mild chest discomfort. While she endorses the above, patient does not have orthopnea, PND, LE swelling, palpitations, presyncope, or syncope. Hospital Course: Ms. Castaneda was admitted to high risk cardiology where she was monitored on continuous telemetry. Baseline ECG and laboratory studies were obtained. She started on Tikosyn 250 mcg, then reduced to 125 mcg BID and tolerated the medication well. She had no significant prolongation of his QTc for 6 inpatient doses. She underwent a cardioversion on 11/21 to normal sinus rhythm and tolerated the procedurewell. She was discharged to home in stable condition with follow up arranged with her driving teacher. She was given information for [employer] website as Tikosyn cost for her was $86. Active Issues Requiring Follow-up: Test Results Pending at Discharge: Pending Labs Order Current Status Magnesium In process Protime-INR In process Thyroid Function Grady In process Operative Procedures Performed: Procedure(s): CARDIOVERSION [id number] Other Procedures: Pertinent Test Results: Discharge Details Physical Exam at Discharge: Discharge Condition: good Pulse: 55 Resp: 16 BP: 119/78 Temp: 36.3 ??C (97.3 ??F) Weight: 100 kg (220 lb 6.4 oz) Pertinent Exam Findings at Discharge: Physical Exam Constitutional: Appearance: Normal appearance. She is normal weight. HENT: Head: Normocephalic. Nose: Nose normal. Mouth/Throat: Mouth: Mucous membranes are dry. Pharynx: Oropharynx is clear. Eyes: Pupils: Pupils are equal, round, and reactive to light. Cardiovascular: Rate and Rhythm: Normal rate and regular rhythm. Pulses: Normal pulses. Heart sounds: Normal heart sounds. Pulmonary: Effort: Pulmonary effort is normal. Abdominal: General: Abdomen is flat. Bowel sounds are normal. Palpations: Abdomen is soft. Musculoskeletal: General: Normal range of motion. Cervical back: Normal range of motion. Skin: General: Skin is warm. Capillary Refill: Capillary refill takes less than 2 seconds. Neurological: General: No focal deficit present. Mental Status: She is alert and oriented to person, place, and time. Mental status is at baseline. Psychiatric: Mood and Affect: Mood normal. Behavior: Behavior normal. Thought Content: Thought content normal. Judgment: Judgment normal. Discharge Disposition: Discharge to home or self care Code Status at Discharge: FULL Discharge Instructions: Activity Instructions Discharge activity: Resume normal activity Diet Instructions Adult Discharge Diet Diet Type: Return to previous diet Other Instructions Call provider for: difficulty breathing or chest pain Call provider for: extreme fatigue Call provider for: persistent dizziness or light-headedness Call provider for: persistent nausea or vomiting Discharge Medications: Current Medications TAKE these medications acetaminophen 325 mg tablet Take 500 mg by mouth daily Commonly known as: TYLENOL acidophilus-pectin, citrus 100 million cell-10 mg capsule Take by mouth azelastine 137 mcg (0.1 %) nasal spray Administer 1 spray into each nostril daily Commonly known as: ASTELIN cholecalciferol 82433 unit capsule Take 1 Units by mouth daily Commonly known as: VITAMIN D-3 CRANBERRY ORAL Take 500 mg by mouth daily diphenhydrAMINE 25 mg capsule Take 1 tablet/capsule (25 mg total) by mouth nightly as needed for itching Commonly known as: BENADRYL dofetilide 125 mcg capsule Take 1 capsule (125 mcg total) by mouth 2 (two) times a day For: atrial fibrillation electrically shocked to normal rhythm Commonly known as: TIKOSYN Eliquis 5 mg tablet TAKE 1 TABLET (5 MG) BY ORAL ROUTE 2 TIMES PER DAY Generic drug: apixaban fluticasone propionate 50 mcg/actuation nasal spray Administer 2 sprays into each nostril daily Commonly known as: FLONASE metoprolol XL 100 mg 24 hr tablet Take 1 tablet (100 mg total) by mouth daily Commonly known as: TOPROL-XL Start taking on: November 23, 2023 [id number]-waomgi tablet Take 1 tablet by mouth daily omeprazole 40 mg capsule Take 1 capsule (40 mg total) by mouth daily Commonly known as: PriLOSEC spironolactone 50 mg tablet Take 1 tablet (50 mg total) by mouth daily Commonly known as: ALDACTONE TURMERIC ORAL Take 500 mg by mouth daily Outpatient Follow-Up: Future Appointments Date Time Provider Department Center 01/29/2024 9:00 AM Saul Tee MD [facility] CAR 130 MG Decent 06/03/2024 9:45 AM Idris Rosas MD PhD CAR CAM 8B Cardiology Cosigned by Cristela Wharton MD at 11/22/2023 2:33 PM COMPLIANCE AND CONTROL ANALYST LIANCE AND CONTROL ANALYST LIANCE AND CONTROL ANALYST documented in this encounter Discharge Instructions * Discharge Instructions* Tamika Raman DNP - 11/22/2023 8:11 AM COMPLIANCE AND CONTROL ANALYST Smartbill - [employer] Create an account and follow the instructions LIANCE AND CONTROL ANALYST LIANCE AND CONTROL ANALYST LIANCE AND CONTROL ANALYST * Discharge Instr - Other Orders* Sarai Young RN - 11/22/2023 1:07 PM COMPLIANCE AND CONTROL ANALYST LIANCE AND CONTROL ANALYST LIANCE AND CONTROL ANALYST documented in this encounter Medications at Time of Discharge acetaminophen (TYLENOL) 325 mg tablet Take 500 mg by mouth daily azelastine (ASTELIN) 137 mcg (0.1 %) nasal spray Administer 1 spray into each nostril daily 04/27/2022 cranberry fruit extract (CRANBERRY ORAL) Take 500 mg by mouth daily diphenhydrAMINE (BENADRYL) 25 mg capsule Take 1 tablet/capsule (25 mg total) by mouth nightly as needed for itching Eliquis 5 mg tablet TAKE 1 TABLET (5 MG) BY ORAL ROUTE 2 TIMES PER DAY 05/04/2021 fluticasone propionate (FLONASE) 50 mcg/actuation nasal spray Administer 2 sprays into each nostril daily multivitamin-white shoe examiner als-lutein tablet Take 1 tablet by mouth daily omeprazole (PriLOSEC) 40 mg capsule Take 1 capsule (40 mg total) by mouth daily spironolactone (ALDACTONE) 50 mg tablet Take 1 tablet (50 mg total) by mouth daily 04/23/2022 TURMERIC ORAL Take 500 mg by mouth daily acidophilus-pectin , citrus 100 million cell-10 mg capsule Take by mouth 4 cholecalciferol (VITAMIN D-3) 76813 unit capsule Take 1 Units by mouth daily 4 dofetilide (TIKOSYN) 125 mcg capsuleIndications :Cardioversion of Atrial Fibrillation Take 1 capsule (125 mcg total) by mouth 2 (two) times a day 60 capsule 2 11/22/2023 4 metoprolol XL (TOPROL-XL) 100 mg 24 hr tablet Take 1 tablet (100 mg total) by mouth daily 30 tablet 11 11/23/2023 4 documented as of this encounter Ordered Prescriptions Prescription Sig Dispense Quantity Refills Last Filled Start Date End Date metoprolol XL (TOPROL-XL) 100 mg 24 hr tablet Take 1 tablet (100 mg total) by mouth daily 30 tablet 11 11/23/2023 4 dofetilide (TIKOSYN) 125 mcg capsuleIndications :Cardioversion of Atrial Fibrillation Take 1 capsule (125 mcg total) by mouth 2 (two) times a day 60 capsule 2 11/22/2023 4 dofetilide (TIKOSYN) 125 mcg capsuleIndications :Cardioversion of Atrial Fibrillation Take 1 capsule (125 mcg total) by mouth 2 (two) times a day 60 capsule 2 11/22/2023 4 documented in this encounter Discharge Disposition Disposition Code Departure Means Destination Comment s Discharge to home or self care documented in this encounter Progress Notes * Sarai Young RN - 11/22/2023 1:04 PM CST 11/22/23 1304 Discharge Summary Discharge Disposition Private residence Equipment/Provider Needs No Home Needs Identified Discharge Additional Assistance Does the patient need discharge transport arranged? No Post Discharge Care Provider Post Discharge Care Plan DC Summary has been faxed to next level of care provider (see Follow Up Providers) Per medical team, patient is medically stable for discharge at this time. Follow up appointment hasbeen scheduled for 11/26 909. Transportation will be provided by family. Patient and/or family are agreeable with the plan. If any further discharge needs arise, please contact the covering outsole caser. Sarai ESTRELLA staff appraiser LIANCE AND CONTROL ANALYST LIANCE AND CONTROL ANALYST LIANCE AND CONTROL ANALYST * Sarai Young RN - 11/22/2023 1:04 PM CST 11/22/23 1304 Communications Important Message from Medicare notice given to patient? Yes IM letter completed with patient at bedside. Patient was informed of the planned discharge date, the date the beneficiary's financial liability begins, the beneficiary's appeal rights, and how and when to initiate an appeal. Patient was provided a copy of the IM letter and IM letter was placed in unit???s designated medical record bin to be uploaded into the patient???s chart. Sarai ESTRELLA staff appraiser LIANCE AND CONTROL ANALYST * Sukhjinder Barney NP - 11/21/2023 10:20 AM CST Cardiology Daily Progress Subjective Chief complaint of Afib/RVR Interval History: Tikosyn load continues with 125 mcg BID, remains in Afib ROS: General: No fever, chills, malaise or fatigue Eyes: No alterations in visual acuity ENT: No alterations in auditory acuity, no sore throat Pulmonary: No dyspnea, cough or hemoptysis Cardiac: No chest pain, orthopnea, PND or palpitations GI: No nausea, vomiting, diarrhea or constipation Musculoskeletal: No myalgias or arthralgias Skin: no rashes Neuro: No headaches, parathesias or focal neurological complaints Endocrine: No cold or heat intolerance Heme: no excessive bleeding or bruising Objective apixaban, 5 mg, oral, Q12H HERMAN dofetilide, 125 mcg, oral, BID metoprolol XL, 100 mg, oral, Daily pantoprazole DR, 40 mg, oral, Daily sodium chloride 0.9%, 0.5-20 mL, intra-catheter, Q8H HERMAN spironolactone, 50 mg, oral, Daily Current Facility-Administered Medications Medication Dose Route Frequency Last Admin Physical Exam: Vitals: HR, BP, RR, Temp, O2 sat were reviewed General: NAD, well-developed well-nourished. Eyes: JONY, sclera nonicteric ENT: Mucous membranes moist, no oropharyngeal lesions. Neck: No JVD Lungs: Clear to auscultation bilaterally. No crackles, wheezes, or rhonchi. Normal excursion. Normal effort. Cardiac: S1S2 RRR, No murmurs, rubs, clicks, gallops. Abdomen: Normal bowel sounds. Obese, soft, nontender, nondistended. No organomegaly. Extremities: Warm well perfused. No edema. Neurologic: Nonfocal and grossly intact. Normal sensorium. Psychiatric: Normal insight. Normal orientation. Normal mood Dermatologic: No evident skin lesions. Lab/Radiology/Diagnostic Review: Laboratory review: Lab results in the last 24 hours: Recent Results (from the past 24 hour(s)) Basic metabolic panel Collection Time: 11/21/23 4:19 AM Result Value Ref Range Sodium 139 135 - 145 mmol/L Potassium, pl 4.6 3.3 - 4.9 mmol/L Chloride 102 97 - 110 mmol/L CO2 25 22 - 32 mmol/L Anion gap 12 2 - 15 mmol/L BUN 18 6 - 25 mg/dL Creatinine 1.19 (H) 0.60 - 1.10 mg/dL Glucose 97 70 - 199 mg/dL Calcium 9.4 8.5 - 10.3 mg/dL CBC without differential Collection Time: 11/21/23 4:19 AM Result Value Ref Range WBC 8.2 3.8 - 9.9 K/cumm Hgb 11.4 (L) 11.9 - 15.5 g/dL Hct 34.8 (L) 35.6 - 45.5 % Plt 391 150 - 400 K/cumm MPV 9.4 9.1 - 12.3 fL RBC 3.91 3.90 - 5.20 M/cumm MCV 89.0 81.3 - 96.4 fL MCH 29.2 27.1 - 33.3 pg MCHC 32.8 32.3 - 35.7 g/dL RDW CV 13.2 11.1 - 14.9 % RDW SD 43.0 35.7 - 48.1 fL NRBC abs 0.00 0.00 - 0.01 K/cumm eGFR Collection Time: 11/21/23 4:19 AM Result Value Ref Range eGFR 49 (L) >=60 mL/min/1.73 m2 Radiology results: XR Chest 1 View Result Date: 11/20/2023 No priors for comparison. No pleural effusion, or pneumothorax. Cardiomediastinal silhouette withinnormal limits. There is question of faint nodular airspace opacity at the left lung bases could be a focus of atelectasis or in the appropriate clinical setting could be a small focus of developing pn eumonia. Recommend close attention on follow-up radiograph and when clinically feasible, PA and lateral radiograph. Dictated by: Bertin Osborn M.D. The radiology attending physician has personally reviewed this study, and had reviewed and/or edited this written report and agrees with it. Electronically signed by: Carmelita Moss M.D. Telemetry reviewed: My findings are: Afib Vitals: 24hr Min/Max: Temp Min: 36.5 ??C (97.7 ??F) Max: 37 ??C (98.6 ??F) Pulse Min: 86 Max: 140 BP Min: 104/71 Max: 139/86 Resp Min: 18 Max: 18 SpO2 Min: 96 % Max: 98 % Most Recent : Vitals: 11/20/23 2310 11/21/23 0411 11/21/23 0815 11/21/23 0835 BP: 104/71 116/68 (!) 132/102 127/96 BP Location: Left arm Left arm Left arm Left arm Patient Position: Lying;HOB 30 degrees Sitting HOB 30 degrees Pulse: 101 99 107 (!) 140 Resp: 18 18 Temp: 36.5 ??C (97.7 ??F) 36.6 ??C (97.9 ??F) 36.5 ??C (97.7 ??F) TempSrc: Oral Oral Oral SpO2: 98% 96% 98% Weight: 100.2 kg (220 lb 14.4 oz) Height: Wt Readings from Last 3 Encounters: 11/21/23 100.2 kg (220 lb 14.4 oz) 11/13/23 101.9 kg (224 lb 9.6 oz) 10/24/23 102.1 kg (225 lb) I/O last 2 completed shifts: In: 370 [P.O.:360; I.V.:10] Out: 1950 [Urine:1950] No intake/output data recorded. DVT Prophylaxis: Apixaban Code Status: Full Assessment/Plan Essential hypertension Assessment & Plan Normotensive on admission -continue home spironolactone 50 mg daily TAZ on CPAP Assessment & Plan -continue evening CPAP Class 2 obesity with body mass index (BMI) of 38.0 to 38.9 in adult Assessment & Plan Contributing towards TAZ and AF -encouraged weight loss and caloric restriction * Atrial fibrillation (CMS/HCC) (HCC) Assessment & Plan History of symptomatic atrial fibrillation and rapid [...] Eliquis 5 mg BID -TSH WNL -telemetry For patients or family members viewing this note through [facility] programs: This note was written as a communication tool between healthcare providers and may contain technical language, terminology and abbreviations that is difficult to interpret without advanced medical training. If you have questions or concerns regarding what is written in this note, please contact ouroffice or, if you or your family member is admitted to the hospital, the primary team responsible for your care. Please do not call the cell or pager numbers listed in this note, as the provider theyare associated with may no longer be involved in your care. ALAN Dubois- Cosigned by Cristela Wharton MD at 11/21/2023 12:07 PM COMPLIANCE AND CONTROL ANALYST LIANCE AND CONTROL ANALYST LIANCE AND CONTROL ANALYST Associated attestation - Cristela Wharton MD - 11/21/2023 12:07 PM COMPLIANCE AND CONTROL ANALYST Attending Documentation I personally interviewed and examined the patient on 11/21/23 and reviewed the case with the non-physician provider. I agree with the assessment and plan as outlined in the note. History: No new complaints today. Feels well Physical Exam: Vital signs reviewed. No apparent distress. Lungs: clear. Cardiac: Irregular rhythm without S3 or murmur. Abd: soft, NT. Ext: no edema. Data: I have reviewed the pertinent laboratory and imaging test results. Cr 1.19 Qtc 483 after PM dose yesterday, 459 after AM dose Assessment and Plan: Persistent atrial fibrillation Initially on 250 mcg BID, reduced to 125 mcg BID yesterday with stable QT interval Continue dofetilide 125 mcg BID Cardioversion tomorrow, If Qtc appropriate after cardioversion and morning dose may discharge Supplementary Attestation Today, I am treating the patient for persistent atrial fibrillation which is in severe exacerbation, progression, or experiencing treatment side effects as evidenced by need for inpatient antiarrhythmic drug loading, as described in the note. Independently interpreted test ECG which shows Qtc appropriate. Most recent creatinine was 1.19 which was used to continue or change medication dosing Discussed management of afib with Dr. [place]oke The patient is being intensively monitored for drug toxicity from dofetilide. Cristela Wharton MD 11/21/2023 12:01 PM * Saul Tucker - 11/20/2023 3:22 PM CST 11/20/2023 Saul Tucker MDiv 11/20/23 1350 Time Spent Start Time 1350 Stop Time 1415 Time Calculation (min) 25 min Patient Spiritual Assessment Spirituality Assessed Yes Episcopalian Affiliation Shinto;Hindu Active in Congregation No (looking for Shinto episcopal - was Hindu) Clinical Encounter Type Visited With Patient Response Type Routine visit Routine Visit Introduction Reason for visit Support Outcomes and Progress Aligning care with patient's values Achieved Preserve dignity and respect Achieved Demonstrating care and respect Achieved Kely affirmation Achieved Establish rapport and connectedness Achieved Interventions Interventions Active listening;Explore kely and values;Offer emotional support;Offer spiritual/confucianism support;Prayer Plan Future Plan Spiritual Care services available as needed LIANCE AND CONTROL ANALYST * Sukhjinder Barney NP - 11/20/2023 3:11 PM CST Cardiology Daily Progress Subjective Chief complaint of Afib/RVR Interval History: Tikosyn load started with 250 mcg BID ROS: General: No fever, chills, malaise or fatigue Eyes: No alterations in visual acuity ENT: No alterations in auditory acuity, no sore throat Pulmonary: No dyspnea, cough or hemoptysis Cardiac: No chest pain, orthopnea, PND or palpitations GI: No nausea, vomiting, diarrhea or constipation Musculoskeletal: No myalgias or arthralgias Skin: no rashes Neuro: No headaches, parathesias or focal neurological complaints Endocrine: No cold or heat intolerance Heme: no excessive bleeding or bruising Objective apixaban, 5 mg, oral, Q12H HERAMN dofetilide, 125 mcg, oral, BID metoprolol XL, 100 mg, oral, Daily pantoprazole DR, 40 mg, oral, Daily sodium chloride 0.9%, 0.5-20 mL, intra-catheter, Q8H HERMAN spironolactone, 50 mg, oral, Daily Current Facility-Administered Medications Medication Dose Route Frequency Last Admin Physical Exam: Vitals: HR, BP, RR, Temp, O2 sat were reviewed General: NAD, well-developed well-nourished. Eyes: JONY, sclera nonicteric ENT: Mucous membranes moist, no oropharyngeal lesions. Neck: No JVD Lungs: Clear to auscultation bilaterally. No crackles, wheezes, or rhonchi. Normal excursion. Normal effort. Cardiac: S1S2 RRR, No murmurs, rubs, clicks, gallops. Abdomen: Normal bowel sounds. Obese, soft, nontender, nondistended. No organomegaly. Extremities: Warm well perfused. No edema. Neurologic: Nonfocal and grossly intact. Normal sensorium. Psychiatric: Normal insight. Normal orientation. Normal mood Dermatologic: No evident skin lesions. Lab/Radiology/Diagnostic Review: Laboratory review: Lab results in the last 24 hours: Recent Results (from the past 24 hour(s)) ECG 12 lead Collection Time: 11/19/23 9:02 PM Result Value Ref Range Ventricular Rate EKG/Min 113 BPM QRS-Interval (MSEC) 88 ms QT-Interval (MSEC) 328 ms QTc 449 ms R Dora -1 degrees T Dora 26 degrees Diagnosis Atrial fibrillation/flutter with rapid ventricular response Nonspecific ST abnormality Abnormal ECG No previous ECGs available Confirmed by BRITTNI COLE M.D ([id number]) on 11/20/2023 1:22:10 PM aPTT Collection Time: 11/19/23 9:59 PM Result Value Ref Range aPTT 39 (H) 28 - 38 sec CBC with auto differential Collection Time: 11/19/23 9:59 PM Result Value Ref Range WBC 9.2 3.8 - 9.9 K/cumm Hgb 11.0 (L) 11.9 - 15.5 g/dL Hct 33.0 (L) 35.6 - 45.5 % Plt 374 150 - 400 K/cumm MPV 9.4 9.1 - 12.3 fL RBC 3.73 (L) 3.90 - 5.20 M/cumm MCV 88.5 81.3 - 96.4 fL MCH 29.5 27.1 - 33.3 pg MCHC 33.3 32.3 - 35.7 g/dL RDW CV 13.0 11.1 - 14.9 % RDW SD 42.3 35.7 - 48.1 fL NRBC abs 0.00 0.00 - 0.01 K/cumm Comprehensive metabolic panel Collection Time: 11/19/23 9:59 PM Result Value Ref Range Sodium 140 135 - 145 mmol/L Potassium, pl 4.5 3.3 - 4.9 mmol/L Chloride 104 97 - 110 mmol/L CO2 25 22 - 32 mmol/L Anion gap 11 2 - 15 mmol/L BUN 17 6 - 25 mg/dL Creatinine 1.09 0.60 - 1.10 mg/dL Glucose 96 70 - 199 mg/dL Calcium 9.4 8.5 - 10.3 mg/dL Bilirubin, total 0.2 0.1 - 1.2 mg/dL Protein, pl 7.7 6.5 - 8.5 g/dL Albumin 4.2 3.5 - 5.0 g/dL Alk phos 57 40 - 130 Units/L ALT 12 7 - 45 Units/L AST 20 10 - 45 Units/L Lipid panel Collection Time: 11/19/23 9:59 PM Result Value Ref Range Cholesterol 212 (H) 30 - 199 mg/dL Triglycerides 104 <=149 mg/dL HDL 55 >=40 mg/dL LDL, calculated 136 (H) <=129 mg/dL Non-HDL Cholesterol 157 mg/dL Chol/HDL ratio 4 Differential, auto Collection Time: 11/19/23 9:59 PM Result Value Ref Range Neutrophil abs 5.8 1.5 - 6.5 K/cumm Imm gran abs 0.0 0.0 - 0.1 K/cumm Lymphocyte abs 2.4 0.8 - 3.3 K/cumm Monocyte abs 0.8 0.2 - 0.8 K/cumm Eosinophil abs 0.1 0.0 - 0.5 K/cumm Basophil abs 0.1 0.0 - 0.1 K/cumm Neutrophil pct 63.4 % Imm gran pct 0.4 % Lymphocyte pct 26.1 % Monocyte pct 8.4 % Eosinophil pct 1.2 % Basophil pct 0.5 % Protime-INR Collection Time: 11/19/23 9:59 PM Result Value Ref Range PT 14.2 (H) 10.3 - 13.7 sec INR 1.25 (H) 0.90 - 1.20 Magnesium Collection Time: 11/19/23 9:59 PM Result Value Ref Range Magnesium 2.2 1.4 - 2.5 mg/dL eGFR Collection Time: 11/19/23 9:59 PM Result Value Ref Range eGFR 54 (L) >=60 mL/min/1.73 m2 Thyroid Function Grady Collection Time: 11/19/23 9:59 PM Result Value Ref Range TSH 0.81 0.30 - 4.20 mcIUnit/mL Radiology results: XR Chest 1 View Result Date: 11/20/2023 No priors for comparison. No pleural effusion, or pneumothorax. Cardiomediastinal silhouette withinnormal limits. There is question of faint nodular airspace opacity at the left lung bases could be a focus of atelectasis or in the appropriate clinical setting could be a small focus of developing pn eumonia. Recommend close attention on follow-up radiograph and when clinically feasible, PA and lateral radiograph. Dictated by: Bertin Osborn M.D. The radiology attending physician has personally reviewed this study, and had reviewed and/or edited this written report and agrees with it. Electronically signed by: Carmelita Moss M.D. Telemetry reviewed: My findings are: Afib Vitals: 24hr Min/Max: Temp Min: 36.7 ??C (98.1 ??F) Max: 37 ??C (98.6 ??F) Pulse Min: 100 Max: 113 BP Min: 92/59 Max: 139/84 Resp Min: 18 Max: 18 SpO2 Min: 95 % Max: 100 % Most Recent : Vitals: 11/20/23 0245 11/20/23 0642 11/20/23 0844 11/20/23 1200 BP: 102/65 110/78 139/84 BP Location: Left arm Left arm Left arm Patient Position: HOB 30 degrees HOB 30 degrees Sitting Pulse: 100 103 109 Resp: 18 18 Temp: 36.7 ??C (98.1 ??F) 37 ??C (98.6 ??F) TempSrc: Oral Oral SpO2: 95% 99% 97% Weight: 99.9 kg (220 lb 3.2 oz) Height: Wt Readings from Last 3 Encounters: 11/20/23 99.9 kg (220 lb 3.2 oz) 11/13/23 101.9 kg (224 lb 9.6 oz) 10/24/23 102.1 kg (225 lb) No intake/output data recorded. I/O this shift: In: - Out: 300 [Urine:300] DVT Prophylaxis: Apixaban Code Status: Full Assessment/Plan Essential hypertension Assessment & Plan Normotensive on admission -continue home spironolactone 50 mg daily TAZ on CPAP Assessment & Plan -continue evening CPAP Class 2 obesity with body mass index (BMI) of 38.0 to 38.9 in adult Assessment & Plan Contributing towards TAZ and AF -encouraged weight loss and caloric restriction * Atrial fibrillation (CMS/HCC) (HCC) Assessment & Plan History of symptomatic atrial fibrillation and rapid [...] Eliquis 5 mg BID -TSH WNL -telemetry For patients or family members viewing this note through [facility] programs: This note was written as a communication tool between healthcare providers and may contain technical language, terminology and abbreviations that is difficult to interpret without advanced medical training. If you have questions or concerns regarding what is written in this note, please contact ouroffice or, if you or your family member is admitted to the hospital, the primary team responsible for your care. Please do not call the cell or pager numbers listed in this note, as the provider theyare associated with may no longer be involved in your care. Sukhjinder Barney AGACNP- Cosigned by Leonides Soler MD at 11/23/2023 6:48 AM COMPLIANCE AND CONTROL ANALYST LIANCE AND CONTROL ANALYST LIANCE AND CONTROL ANALYST documented in this encounter H&P Notes * Hari Wen MD PhD - 11/22/2023 7:24 AM CST I have reviewed the H&P, examined the patient, and endorse the findings as written. Plan of Care : Based on the above findings, I consider Lluvia Castaneda to be an acceptable risk for :Procedure(s): CARDIOVERSION 55045 LIANCE AND CONTROL ANALYST Source Note - Loyda Azul MD PhD - 11/19/2023 9:01 PM COMPLIANCE AND CONTROL ANALYST [facility] Cardiology History and Physical - Electrophysiology Patient Name: Lluvia Castaneda : 1950 Date of Service: 11/19/23 Chief Complaint: Atrial fibrillation, drug load HPI HPI: Lluvia Castaneda is a 73 y.o. female with a history of atrial fibrillation, hypertension, and obesity presenting for Tikosyn drug load for atrial fibrillation. In brief, she recently established care with Dr. Rosas for her diagnosis of atrial fibrillation. She initially presented with atrial fibrillation in 2020 and mid range reduced systolic dysfunction, LVEF 41%. She was cardioverted and maintained on amiodarone and Eliquis. She then came off of amiodarone and had recurrence of atrial fibrillation in 2022, albeit this time with recovered LV systolic function and unremarkable MPI. At one point she trialed flecainide and experienced bradycardia. She is symptomatic from atrial fibrillation with fatigue, dyspnea, and lightheadedness. She then established care with Dr. Rosas last week and is now directly admitted for Tikosyn loading. She has never missed a dose of Eliquis, last dose this morning. Since she was seen last, her metoprolol tartrate 50 mg BID was converted to metoprolol succinate 50mg daily. She has experienced a significant increase in palpitations and rapid ventricular response. At times her heart rate would exceed 160-170 BPM. This was associated with dyspnea and mild chest discomfort. While she endorses the above, patient does not have orthopnea, PND, LE swelling, palpitations, presyncope, or syncope. Review of Systems: Review of systems as per HPI and, otherwise all other systems are negative. PMHX: has a past medical history of Hypertension. PSHX: reviewed and not pertinent Family Hx: family history includes No Known Problems in her father and mother. Social Hx: reports that she has never smoked. She has never used smokeless tobacco. She reports that she does not use drugs. Patient denies consuming alcoholic drinks. Allergies Allergen Reactions Hydrocodone-Acetaminophen Hives, Itching and Rash Red Dye Rash Itching hives rash, HOME MEDICATIONS : acetaminophen (TYLENOL) 325 mg tablet acidophilus-pectin, citrus 100 million cell-10 mg capsule azelastine (ASTELIN) 137 mcg (0.1 %) nasal spray cholecalciferol (VITAMIN D-3) 93326 unit capsule cranberry fruit extract (CRANBERRY ORAL) diphenhydrAMINE (BENADRYL) 25 mg capsule Eliquis 5 mg tablet fluticasone propionate (FLONASE) 50 mcg/actuation nasal spray metoprolol XL (TOPROL-XL) 50 mg extended release tablet nmdzwnuwhqim-fnhsqrlq-xjbnuk tablet omeprazole (PriLOSEC) 40 mg capsule spironolactone (ALDACTONE) 50 mg tablet TURMERIC ORAL Current Medications: apixaban, 5 mg, oral, Q12H HERMAN [START ON 11/20/2023] metoprolol XL, 100 mg, oral, Daily metoprolol XL, 50 mg, oral, Once [START ON 11/20/2023] pantoprazole DR, 40 mg, oral, Daily sodium chloride 0.9%, 0.5-20 mL, intra-catheter, Q8H HERMAN [START ON 11/20/2023] spironolactone, 50 mg, oral, Daily Objective Vital Signs: 24hr Min/Max: Temp Min: 36.7 ??C (98.1 ??F) Max: 36.7 ??C (98.1 ??F) Pulse Min: 113 Max: 113 BP Min: 136/71 Max: 136/71 Resp Min: 18 Max: 18 SpO2 Min: 100 % Max: 100 % Most Recent: Vitals: 11/19/232049 BP: 136/71 Pulse: 113 Resp: 18 Temp: 36.7 ??C (98.1 ??F) SpO2: 100% Intake/Output: No intake or output data in the 24 hours ending 11/19/232115 Physical Exam: General appearance: no acute distress HEENT: NCAT, MM, anicteric Lungs: CTAB, no w/r/r, non-labored Heart: Irregular, Tachycardic S1, S2 normal, no murmur, rub or gallop. JVP not elevated, trace non pitting LE edema Abdomen: soft, NT/ND; bowel sounds normal, central obesity Extremities: extremities normal, warm and well-perfused, equal pulses Skin: warm and dry Neurologic: No abnormal movements, non-focal exam Psych: Normal mood and affect Lab/Radiology/Diagnostic Review: Labs: Cultures: No results found for: MICROBIOLOGY I personally reviewed the Telemetry images with the following findings: Atrial fibrillation I personally reviewed the ECG images with the following findings: Atrial fibrillation Rapid ventricular response HR [address] T wave changes TTE, 09/18/2023 Normal left ventricular systolic function. No focal wall motion abnormalities. Normal left ventricular size. Mild concentric left ventricular hypertrophy. Indeterminate diastolic function. Ejection fraction is visually estimated at 55-60 %. Ejection fraction is measured at 57 %. Global Longitudinal Strain is -13 %. GLS is abnormal. There is moderate enlargement of left atrium. Mild mitral valve regurgitation. Mild tricuspid regurgitation. Atrial fibrillation. Cardiac catheterization: None prior I personally reviewed the CXR images with the following findings: Pending Assessment/Plan Ms. Castaneda is a 73 y.o. female with a history of atrial fibrillation, hypertension, and obesity presenting for Tikosyn drug load for atrial fibrillation. * Atrial fibrillation (CMS/HCC) (HCC) Assessment & Plan History of symptomatic atrial fibrillation and rapid ventricular response with moderate LAE. Prior successful trial of amiodarone and reportedly did poorly in the past with flecainide. Now directly admitted for Tikosyn loading -admission labs -ECG -pending labs and ECG, will dose Tikosyn this evening -ECG 2 hours after Tikosyn -increase metoprolol 100 mg daily -continue Eliquis 5 mg BID starting tonight -TSH -telemetry Essential hypertension Assessment & Plan Normotensive on admission -continue home spironolactone TAZ on CPAP Assessment & Plan -continue evening CPAP Class 2 obesity with body mass index (BMI) of 38.0 to 38.9 in adult Assessment & Plan Contributing towards TAZ and AF -encouraged weight loss and caloric restriction Cosigned by Leonides Soler MD at 11/20/2023 6:29 PM COMPLIANCE AND CONTROL ANALYST LIANCE AND CONTROL ANALYST LIANCE AND CONTROL ANALYST * Loyda Azul MD PhD - 11/19/2023 9:01 PM CST [facility] Cardiology History and Physical - Electrophysiology Patient Name: Lluvia Castaneda : 1950 Date of Service: 11/19/23 Chief Complaint: Atrial fibrillation, drug load HPI HPI: Lluvia Castaneda is a 73 y.o. female with a history of atrial fibrillation, hypertension, and obesity presenting for Tikosyn drug load for atrial fibrillation. In brief, she recently established care with Dr. Rosas for her diagnosis of atrial fibrillation. She initially presented with atrial fibrillation in 2020 and mid range reduced systolic dysfunction, LVEF 41%. She was cardioverted and maintained on amiodarone and Eliquis. She then came off of amiodarone and had recurrence of atrial fibrillation in 2022, albeit this time with recovered LV systolic function and unremarkable MPI. At one point she trialed flecainide and experienced bradycardia. She is symptomatic from atrial fibrillation with fatigue, dyspnea, and lightheadedness. She then established care with Dr. Rosas last week and is now directly admitted for Tikosyn loading. She has never missed a dose of Eliquis, last dose this morning. Since she was seen last, her metoprolol tartrate 50 mg BID was converted to metoprolol succinate 50mg daily. She has experienced a significant increase in palpitations and rapid ventricular response. At times her heart rate would exceed 160-170 BPM. This was associated with dyspnea and mild chest discomfort. While she endorses the above, patient does not have orthopnea, PND, LE swelling, palpitations, presyncope, or syncope. Review of Systems: Review of systems as per HPI and, otherwise all other systems are negative. PMHX: has a past medical history of Hypertension. PSHX: reviewed and not pertinent Family Hx: family history includes No Known Problems in her father and mother. Social Hx: reports that she has never smoked. She has never used smokeless tobacco. She reports that she does not use drugs. Patient denies consuming alcoholic drinks. Allergies Allergen Reactions Hydrocodone-Acetaminophen Hives, Itching and Rash Red Dye Rash Itching hives rash, HOME MEDICATIONS : acetaminophen (TYLENOL) 325 mg tablet acidophilus-pectin, citrus 100 million cell-10 mg capsule azelastine (ASTELIN) 137 mcg (0.1 %) nasal spray cholecalciferol (VITAMIN D-3) 64089 unit capsule cranberry fruit extract (CRANBERRY ORAL) diphenhydrAMINE (BENADRYL) 25 mg capsule Eliquis 5 mg tablet fluticasone propionate (FLONASE) 50 mcg/actuation nasal spray metoprolol XL (TOPROL-XL) 50 mg extended release tablet eezsflqjqtqi-pdukadhd-cruedr tablet omeprazole (PriLOSEC) 40 mg capsule spironolactone (ALDACTONE) 50 mg tablet TURMERIC ORAL Current Medications: apixaban, 5 mg, oral, Q12H HERMAN [START ON 11/20/2023] metoprolol XL, 100 mg, oral, Daily metoprolol XL, 50 mg, oral, Once [START ON 11/20/2023] pantoprazole DR, 40 mg, oral, Daily sodium chloride 0.9%, 0.5-20 mL, intra-catheter, Q8H HERMAN [START ON 11/20/2023] spironolactone, 50 mg, oral, Daily Objective Vital Signs: 24hr Min/Max: Temp Min: 36.7 ??C (98.1 ??F) Max: 36.7 ??C (98.1 ??F) Pulse Min: 113 Max: 113 BP Min: 136/71 Max: 136/71 Resp Min: 18 Max: 18 SpO2 Min: 100 % Max: 100 % Most Recent: Vitals: 11/19/232049 BP: 136/71 Pulse: 113 Resp: 18 Temp: 36.7 ??C (98.1 ??F) SpO2: 100% Intake/Output: No intake or output data in the 24 hours ending 11/19/232115 Physical Exam: General appearance: no acute distress HEENT: NCAT, MM, anicteric Lungs: CTAB, no w/r/r, non-labored Heart: Irregular, Tachycardic S1, S2 normal, no murmur, rub or gallop. JVP not elevated, trace non pitting LE edema Abdomen: soft, NT/ND; bowel sounds normal, central obesity Extremities: extremities normal, warm and well-perfused, equal pulses Skin: warm and dry Neurologic: No abnormal movements, non-focal exam Psych: Normal mood and affect Lab/Radiology/Diagnostic Review: Labs: Cultures: No results found for: MICROBIOLOGY I personally reviewed the Telemetry images with the following findings: Atrial fibrillation I personally reviewed the ECG images with the following findings: Atrial fibrillation Rapid ventricular response HR [address] T wave changes TTE, 09/18/2023 Normal left ventricular systolic function. No focal wall motion abnormalities. Normal left ventricular size. Mild concentric left ventricular hypertrophy. Indeterminate diastolic function. Ejection fraction is visually estimated at 55-60 %. Ejection fraction is measured at 57 %. Global Longitudinal Strain is -13 %. GLS is abnormal. There is moderate enlargement of left atrium. Mild mitral valve regurgitation. Mild tricuspid regurgitation. Atrial fibrillation. Cardiac catheterization: None prior I personally reviewed the CXR images with the following findings: Pending Assessment/Plan Ms. Castaneda is a 73 y.o. female with a history of atrial fibrillation, hypertension, and obesity presenting for Tikosyn drug load for atrial fibrillation. * Atrial fibrillation (CMS/HCC) (HCC) Assessment & Plan History of symptomatic atrial fibrillation and rapid ventricular response with moderate LAE. Prior successful trial of amiodarone and reportedly did poorly in the past with flecainide. Now directly admitted for Tikosyn loading -admission labs -ECG -pending labs and ECG, will dose Tikosyn this evening -ECG 2 hours after Tikosyn -increase metoprolol 100 mg daily -continue Eliquis 5 mg BID starting tonight -TSH -telemetry Essential hypertension Assessment & Plan Normotensive on admission -continue home spironolactone TAZ on CPAP Assessment & Plan -continue evening CPAP Class 2 obesity with body mass index (BMI) of 38.0 to 38.9 in adult Assessment & Plan Contributing towards TAZ and AF -encouraged weight loss and caloric restriction Cosigned by Leonides Soler MD at 11/20/2023 6:29 PM COMPLIANCE AND CONTROL ANALYST LIANCE AND CONTROL ANALYST LIANCE AND CONTROL ANALYST Associated attestation - Leonides Soler MD - 11/20/2023 6:29 PM COMPLIANCE AND CONTROL ANALYST Attending Documentation I have seen and examined the patient on 11/20/23. I agree with the findings and plan of care as documented in the resident's/fellow's note. Presented for tikosyn loading, QTc around 500 after two doses, will decrease dose to 125mcg BID, CrCl 39. Stop benadryl (no interaction but has risk of prolonging QT) Rate around 100BPM on tele, with episodes of RVR, cont metoop. Supplementary Attestation Today, I am treating the patient for persistent AF which is in severe exacerbation, progression, orexperiencing treatment side effects as evidenced by the need for AAD, as described in the note. The patient is being intensively monitored for drug toxicity from AAD. Leonides Soler MD 11/20/2023 6:20 PM documented in this encounter Miscellaneous Notes * Provider Query - Sukhjinder Barney NP - 11/22/2023 2:03 PM CST Clinical Indicators/Treatments: Patient with history of atrial fibrillation is admitted for tikosyn loading. 11/19 H&P, Attestation: Supplementary Attestation Today, I am treating the patient for persistent AF... 11/20 Card PN: Cardiac: S1S2 RRR, No murmurs, rubs, clicks, gallops. Atrial fibrillation -started Tikosyn 250 mcg BID -ECG 2 hours after each dose Tikosyn -remains Afib w/ rate 90s-110s on tele -Qtc after 1st dose Tikosyn was 497, this AM after 2nd dose Qtc was 507--discussed with EP, decrease Tikosyn to 125 mcg BID -continue metoprolol 100 mg daily -continue Eliquis 5 mg BID -TSH WNL -telemetry Card PN: Heart: Irregular, Tachycardic S1, S2 normal, no murmur, rub or gallop Atrial fibrillation -pending labs and ECG, will dose Tikosyn this evening -ECG 2 hours after Tikosyn Treatment/monitoring as above. Specify the type of Atrial Fibrillation in the medical record and on the form below. ____Paroxysmal Atrial Fibrillation Defined as: Self- terminating or intermittent. Terminates spontaneously or with intervention within7 days of onset. __x__ Persistent Atrial Fibrillation Defined as: Does not terminate within 7 days or that requires repeat pharmacological or electrical cardioversion ____Other, specify below Additional Provider Response: HPI: Lluvia Castaneda is a 73 y.o. female with a history of atrial fibrillation, hypertension, and obesity presenting for Tikosyn drug load for atrial fibrillation. In brief, she recently established care with Dr. Rosas for her diagnosis of atrial fibrillation. She initially presented with atrial fibrillation in 2020 and mid range reduced systolic dysfunction, LVEF 41%. She was cardioverted and maintained on amiodarone and Eliquis. She then came off of amiodarone and had recurrence of atrial fibrillation in 2022, albeit this time with recovered LV systolic function and unremarkable MPI. At one point she trialed flecainide and experienced bradycardia. She is symptomatic from atrial fibrillation with fatigue, dyspnea, and lightheadedness. She then established care with Dr. Rosas last week and is now directly admitted for Tikosyn loading. She has never missed a dose of Eliquis, last dose this morning. Since she was seen last, her metoprolol tartrate 50 mg BID was converted to metoprolol succinate 50mg daily. She has experienced a significant increase in palpitations and rapid ventricular response. At times her heart rate would exceed 160-170 BPM. This was associated with dyspnea and mild chest discomfort. While she endorses the above, patient does not have orthopnea, PND, LE swelling, palpitations, presyncope, or syncope. References: Source: [facility], 2018, page 3. From the ICD-10-CM Coding Guidelines, use of terms such as likely, suspected, possible, or probable(associated with a specific diagnosis that is being evaluated, monitored, or treated as if it exists) are acceptable and can be coded in the inpatient setting when documented at the time of discharge. This documentation will become part of the patient???s medical record. LIANCE AND CONTROL ANALYST * Plan of Care - Tiana Camp RN - 11/22/2023 1:37 PM CST Problem: Discharge Planning Goal: Understanding discharge needs will improve Outcome: Adequate for Discharge Problem: Hematologic Goal: Maintains hematologic stability Outcome: Adequate for Discharge Problem: Activity Goal: Risk for activity intolerance and fatigue will decrease Outcome: Adequate for Discharge Goal: Ability to tolerate increased activity will improve Outcome: Adequate for Discharge Problem: Lack of Knowledge Goal: Ability to develop a pain control plan will improve Outcome: Adequate for Discharge Problem: Medication Goal: Satisfaction with pain management medication regimen will improve Outcome: Adequate for Discharge Problem: Sensory Goal: Ability to identify factors that increase pain levels will improve while working to decrease the patient's pain levels Outcome: Adequate for Discharge Problem: Coping Goal: Ability to cope will improve Outcome: Adequate for Discharge Problem: Health Behavior Goal: Identification of resources available to assist in meeting health care needs will improve Outcome: Adequate for Discharge Summary: Pt with successful cardioversion this morning. Pt now in NSR. VSS, pt c/o generalized aching- treated with tylenol, pt ambulates independently. Tikosyn with EKG two hours post dose. AVS reviewed with patient. LIANCE AND CONTROL ANALYST * Perioperative Nursing Note - Aleksandra Franco RN - 11/22/2023 8:31 AM COMPLIANCE AND CONTROL ANALYST Pt s/p Cardioversion. Pt is A&Ox4, VS stable. Pt is returning to 11,200, report called to [facility]. Pt transported via wheelchair with transporter. LIANCE AND CONTROL ANALYST * Post-Procedure Note - Hari Wen MD PhD - 11/22/2023 7:57 AM COMPLIANCE AND CONTROL ANALYST CARDIOVERSION 71418 PRE-OP DIAGNOSIS: Atrial fibrillation HIGH RISK OB: Hari Wen MD PhD. REFERRING MD: Jenaro Rosas MD [facility]; Frances Soler MD; Rinku Beasley MD HISTORY: 73 yo WF with atrial fibrillation. Anticoagulation with apixaban. PROCEDURE: Biphasic, synchronized DC cardioversion. The nature of the procedure, risks and alternatives were discussed with the patient who gave informed consent. The patient was sedated with propofol per the anesthesia team. 200J DC-CV using R2 Pads placed AP position. Resulting rhythm was sinus rhythm. The patient was then monitored until fully alert. COMPLICATIONS: None. IMPRESSION: Successful DC cardioversion to sinus rhythm. The referring EP team was notified. Hari Wen MD PhD was present to personally supervise or perform the entire procedure. LIANCE AND CONTROL ANALYST * Plan of Care - Santo Saavedra RRT - 11/22/2023 3:37 AM CST NPPV - PATIENT WORE Situation: The patient was ordered on NPPV for nocturnal use due to a history of Obstructive Sleep Apnea (TAZ). Patient was placed on their home NPPV machine. Settings: NPPV Mode: CPAP EPAP Pressure: 11 cm H20. Tolerance: The patient tolerated the NPPV without issue. Plan: Proceed as ordered and continue to monitor the patient. LIANCE AND CONTROL ANALYST * Plan of Care - Sandy Mckeon RN - 11/21/2023 11:34 PM CST Goals: Clinical Goals for the Shift: Keep pt comfortable, complete EKG 2hrs post Tikosyn. Pt will be pain free. Provide Safety Precaution. Call light within reach, Summary: Problem: Discharge Planning Goal: Understanding discharge needs will improve Outcome: Progressing Problem: Hematologic Goal: Maintains hematologic stability Outcome: Progressing Problem: Activity Goal: Risk for activity intolerance and fatigue will decrease Outcome: Progressing Goal: Ability to tolerate increased activity will improve Outcome: Progressing Problem: Lack of Knowledge Goal: Ability to develop a pain control plan will improve Outcome: Progressing Problem: Medication Goal: Satisfaction with pain management medication regimen will improve Outcome: Progressing Problem: Sensory Goal: Ability to identify factors that increase pain levels will improve while working to decrease the patient's pain levels Outcome: Progressing Problem: Coping Goal: Ability to cope will improve Outcome: Progressing Problem: Health Behavior Goal: Identification of resources available to assist in meeting health care needs will improve Outcome: Progressing LIANCE AND CONTROL ANALYST * Plan of Care - Ko Mejia RN - 11/21/2023 4:38 PM CST Goals: Clinical Goals for the Shift: Keep pt comfortable, complete EKG 2hrs post Tikosyn. Pt will be pain free. Provide Safety Precaution. Call light within reach, Summary: Problem: Discharge Planning Goal: Understanding discharge needs will improve Outcome: Progressing Problem: Hematologic Goal: Maintains hematologic stability Outcome: Progressing Problem: Activity Goal: Risk for activity intolerance and fatigue will decrease Outcome: Progressing Goal: Ability to tolerate increased activity will improve Outcome: Progressing LIANCE AND CONTROL ANALYST * Plan of Care - Sarai Young RN - 11/21/2023 4:11 PM CST Per Medical Chart/Rounds/IDR: not medcially ready for discharge. Drug load. CV tomorrow ADD: 11/21 Plan & referrals made/in place: None noted at this time. CM to follow for d/c planning and referrals as needed. Support following discharge: lives alone. SUKHI Castaneda (dtr) [phone] Transportation: family F/U Appointments: tbd Patient's Identified Problem/Goal Problem: Ensure acute medical needs are met and that patient has a safe discharge plan. Goal: Secure a discharge plan that patient/family are agreeable with and ensure patient has continuum of care. Patient and/or family are agreeable with plan. relationship manager will continue to follow and assist with discharge planning as needed. If any further discharge needs arise, please contact the covering outsole caser. Sarai Young RNC staff appraiser LIANCE AND CONTROL ANALYST * Assessment & Plan Note - Sukhjinder Barney NP - 11/21/2023 10:19 AM COMPLIANCE AND CONTROL ANALYST Associated Problem(s): TAZ on CPAP -continue evening CPAP LIANCE AND CONTROL ANALYST * Assessment & Plan Note - Sukhjinder Barney NP - 11/21/2023 10:19 AM COMPLIANCE AND CONTROL ANALYST Associated Problem(s): Essential hypertension Normotensive on admission -continue home spironolactone 50 mg daily LIANCE AND CONTROL ANALYST * Assessment & Plan Note - Sukhjinder Barney NP - 11/21/2023 10:19 AM COMPLIANCE AND CONTROL ANALYST Associated Problem(s): Class 2 obesity with body mass index (BMI) of 38.0 to 38.9 in adult Contributing towards TAZ and AF -encouraged weight loss and caloric restriction LIANCE AND CONTROL ANALYST * Assessment & Plan Note - Sukhjinder Barney NP - 11/21/2023 10:19 AM COMPLIANCE AND CONTROL ANALYST Associated Problem(s): Atrial fibrillation (CMS/HCC) (HCC) History of symptomatic atrial fibrillation and rapid [...] Eliquis 5 mg BID -TSH WNL -telemetry LIANCE AND CONTROL ANALYST * Plan of Care - Lillian Wooten RN - 11/21/2023 5:43 AM COMPLIANCE AND CONTROL ANALYST Goals: Clinical Goals for the Shift: Keep pt comfortable, complete EKG 2hrs post Tikosyn. Pt will be pain free. Provide Safety Precaution. Call light within reach, Summary: Pt had no complications over night, Pt is resting now, QTC is less than 500. call light iswithin reach. Problem: Discharge Planning Goal: Understanding discharge needs will improve Outcome: Progressing Problem: Hematologic Goal: Maintains hematologic stability Outcome: Progressing Problem: Activity Goal: Risk for activity intolerance and fatigue will decrease Outcome: Progressing Goal: Ability to tolerate increased activity will improve Outcome: Progressing LIANCE AND CONTROL ANALYST * Plan of Care - Criss Canas RRT - 11/21/2023 2:27 AM CST NPPV - PATIENT WORE Situation: The patient was ordered on NPPV for nocturnal use due to a history of Obstructive Sleep Apnea (TAZ). Patient was placed on their home NPPV machine. Settings: NPPV Mode: CPAP EPAP Pressure: 11 cm H20. Tolerance: The patient tolerated the NPPV without issue. Plan: Proceed as ordered and continue to monitor the patient. LIANCE AND CONTROL ANALYST * Initial Assessments - Sarai Young RN - 11/20/2023 7:56 AM COMPLIANCE AND CONTROL ANALYST CM Initial Assessment Interview Note Information Obtained From: Patient (11/20/23752) Admission Source: home - direct admission Impression: 73 yo F Hx Afib, HTN, obesity - admitted for Tikosyn drug load. Plan Includes: Case Management will follow for Medical Updates and discharge planning and referrals. CM will collaborate with SW and clinical team regarding post hospitalization needs for home health chcf/therapy, SNF/Rehab/LTAC, DME, PCP follow up and other resources as indicated. Plan to return home with support of family. Primary Source of Transportation: Does the patient need discharge transport arranged?: No (family) (11/20/23 843) Health Insurance Coverage: Medicare/Supp Prescription Coverage: yes Pharmacy: verified [id number] [address] Primary Care Provider: verified Rinku Beasley MD Prior to Admission: Functional Status: Independent with ADLs Primary Caregiver: Self Support System: Children (Natividad Castaneda (dtr) [phone]) Home Care Services: No Outpatient Services: No Durable Medical Equipment: None Living Arrangements: Alone Type of Residence: Private residence Steps in home?: Yes, Outside of home Number of steps inside: (few stairs.) Number of steps outside: 2 steps Medication management: Independent (11/20/23 0038) Potential discharge needs include: Home Health: None (11/20/23752) Dialysis: no Behavioral Health Services: Behavioral Health Services: No (11/20/23752) Patient expects to be Discharged to: Private residence, (11/20/23752) Additional Information: CM met with patient at bedside to complete initial assessment. Address and phone number verified with face sheet. Patient lives in a private residence, alone, and reports being independent with ADLs. Denies HHC or DME. Patient's Identified Problem/Goal Problem: Ensure acute medical needs are met and that patient has a safe discharge plan. Goal: Secure a discharge plan that patient/family are agreeable with and ensure patient has continuum of care. Case management will follow for discharge planning and send referrals as needed. Goals include: To assure continuity of care, To maximize coping skills, To assure patient is in a safe environment and To assure access to community resources. Plan includes: 1. Collaboration with patient, MD, direct care nurse, Line Director, and other members of the health care team to assure needed interventions completed. 2. Return patient to optimal level of self-care post discharge. 3. Payable Representative will follow for Discharge Planning - interventions as needed 4. Anticipated level of care at discharge 5. Planned Discharge Disposition Based on a comprehensive family assessment, assistance with instrumental activities of daily livingafter discharge will be provided by Natividad Castaneda (dtr) [phone] Through the course of our work I determined that the family possesses the skill and ability to provide and monitor the care of the patient when he or she returns home. family has the capacity to provide/monitor/arrange for the care of the patient. Finally, we determined that family has the knowledge of available resources and that combining them with their existing resources will suffice to sustain and care for the patient when he or she returns home. The treatment team is aware of this information. All are in agreement with the aftercare plan. Sarai Young RNC staff appraiser LIANCE AND CONTROL ANALYST * Plan of Care - Rahel Cardoza RRT - 11/20/2023 2:21 AM CST Patient is currently wearing their home cpap overnight for TAZ. Plan :For patient to continue to wear their home cpap overnight for TAZ. LIANCE AND CONTROL ANALYST * Assessment & Plan Note - Loyda Azul MD PhD - 11/19/2023 9:12 PM COMPLIANCE AND CONTROL ANALYST Associated Problem(s): Essential hypertension Normotensive on admission -continue home spironolactone 50 mg daily LIANCE AND CONTROL ANALYST LIANCE AND CONTROL ANALYST * Assessment & Plan Note - Loyda Azul MD PhD - 11/19/2023 9:11 PM COMPLIANCE AND CONTROL ANALYST Associated Problem(s): Class 2 obesity with body mass index (BMI) of 38.0 to 38.9 in adult Contributing towards TAZ and AF -encouraged weight loss and caloric restriction LIANCE AND CONTROL ANALYST LIANCE AND CONTROL ANALYST * Assessment & Plan Note - Loyda Azul MD PhD - 11/19/2023 9:10 PM COMPLIANCE AND CONTROL ANALYST Associated Problem(s): TAZ on CPAP -continue evening CPAP LIANCE AND CONTROL ANALYST LIANCE AND CONTROL ANALYST * Assessment & Plan Note - Loyda Azul MD PhD - 11/19/2023 9:10 PM COMPLIANCE AND CONTROL ANALYST Associated Problem(s): Atrial fibrillation (CMS/HCC) (HCC) History of symptomatic atrial fibrillation and rapid [...] Eliquis 5 mg BID -TSH WNL -telemetry LIANCE AND CONTROL ANALYST LIANCE AND CONTROL ANALYST LIANCE AND CONTROL ANALYST LIANCE AND CONTROL ANALYST LIANCE AND CONTROL ANALYST documented in this encounter Plan of Treatment Pending Results Name Type Priority Associated Diagnoses Date /Time Protime-INR Lab Timed 11/19/2023 9: 59 PM COMPLIANCE AND CONTROL ANALYST Magnesium Lab Timed 11/19/2023 9:5 9 PM COMPLIANCE AND CONTROL ANALYST Thyroid Function Grady Lab Timed 11/19/2023 9:59 PM COMPLIANCE AND CONTROL ANALYST Scheduled Orders Name Type Priority Associated Diagnoses Orde r Schedule Protime-INR Lab Timed Once for 1 Oc currences starting 11/19/2023 until 11/19/2023 Magnesium Lab Timed Once for 1 Occ urrences starting 11/19/2023 until 11/19/2023 Thyroid Function [facility] Lab Timed Once for 1 Occurrences starting 11/19/2023 until 11/19/2023 documented as of this encounter Procedures Procedure Name Priority Date/Time Associated Diagnosis Comments ECG 12-LEAD Routine 11/22/2023 9:10 AM COMPLIANCE AND CONTROL ANALYST CARDIOVERSION Routine 11/22/2023 7:56 AM COMPLIANCE AND CONTROL ANALYST Atrial fibrillation, unspecified type (HCC) EGFR Routine 11/22/2023 4:34 AM COMPLIANCE AND CONTROL ANALYST CBC WITHOUT DIFFERENTIAL Routine 11/22/2023 4:34 AM COMPLIANCE AND CONTROL ANALYST BASIC METABOLIC PANEL Routine 11/22/2023 4:34 AM COMPLIANCE AND CONTROL ANALYST ECG 12-LEAD Routine 11/21/2023 11:19 AM COMPLIANCE AND CONTROL ANALYST EGFR Routine 11/21/2023 4:19 AM COMPLIANCE AND CONTROL ANALYST CBC WITHOUT DIFFERENTIAL Routine 11/21/2023 4:19 AM COMPLIANCE AND CONTROL ANALYST BASIC METABOLIC PANEL Routine 11/21/2023 4:19 AM COMPLIANCE AND CONTROL ANALYST XR CHEST 1 VIEW IP Routine 11/19/2023 10:37 PM COMPLIANCE AND CONTROL ANALYST EGFR Timed 11/19/2023 9:59 PM COMPLIANCE AND CONTROL ANALYST DIFFERENTIAL AUTO Timed 11/19/2023 9:5 9 PM COMPLIANCE AND CONTROL ANALYST THYROID FUNCTION CASCADE Timed 11/19/2023 9:59 PM COMPLIANCE AND CONTROL ANALYST CBC WITH AUTO DIFFERENTIAL Timed 11/19/2023 9:59 PM COMPLIANCE AND CONTROL ANALYST APTT Timed 11/19/2023 9:59 PM COMPLIANCE AND CONTROL ANALYST PROTIME-INR Timed 11/19/2023 9:59 PM COMPLIANCE AND CONTROL ANALYST MAGNESIUM Timed 11/19/2023 9:59 PM COMPLIANCE AND CONTROL ANALYST LIPID PANEL Timed 11/19/2023 9:59 PM COMPLIANCE AND CONTROL ANALYST COMPREHENSIVE METABOLIC PANEL Timed 11/19/2023 9:59 PM COMPLIANCE AND CONTROL ANALYST ECG 12-LEAD Routine 11/19/2023 9:02 PM COMPLIANCE AND CONTROL ANALYST documented in this encounter Results * ECG 12 lead (11/22/2023 9:10 AM COMPLIANCE AND CONTROL ANALYST) Ventricular Rate EKG/Min 60 BPM [facility] Atrial Rate 60 BPM [facility] IA-Interval (MSEC) 176 ms [facility] QRS-Interval (MSEC) 90 ms [facility] QT-Interval (MSEC) 448 ms [facility] QTc 448 ms [facility] P Dora 57 degrees [facility] R Dora -10 degrees [facility] T Dora 15 degrees [facility] Diagnosis Normal sinus rhythm Normal ECG When compared with ECG of 21-NOV-2023 11:19, Sinus rhythm has replaced Atrial fibrillation Vent. rate has decreased BY ??37 BPM Confirmed by Estephania Barbosa MD ([id number]) on 11/22/2023 2:00:53 PM [facility] 11/22/2023 9:10 AM COMPLIANCE AND CONTROL ANALYST 11/22/2023 2:00 PM COMPLIANCE AND CONTROL ANALYST us Idris Rosas MD PhD ECG ORDERABLES Fin al Result [facility] * CARDIOVERSION (11/22/2023 7:56 AM COMPLIANCE AND CONTROL ANALYST) Anatomical Region Laterality Modality X-Ray Angiograph y Impressions 11/22/2023 7:59 AM COMPLIANCE AND CONTROL ANALYST ??Successful DC cardioversion to sinus rhythm. The referring EP team was notified. Hari Wen MD PhD was present to personally supervise or perform the entire procedure. Narrative 11/22/2023 7:59 AM COMPLIANCE AND CONTROL ANALYST CARDIOVERSION [id number] PRE-OP DIAGNOSIS: ??Atrial fibrillation HIGH RISK OB: Hari Wen MD PhD. REFERRING MD: ??Jenaro Rosas MD [facility]; Frances Soler MD; Rinku Beasley MD HISTORY: ??73 yo WF with atrial fibrillation. Anticoagulation with apixaban. PROCEDURE: ??Biphasic, synchronized DC cardioversion. The nature of the procedure, risks and alternatives were discussed with the patient who gave informed consent. The patient was sedated with propofol per the anesthesia team. ??200J DC-CV using R2 Pads placed AP position. ?Resulting rhythm was sinus rhythm. The patient was then monitored until fully alert. COMPLICATIONS: ??None. us Sukhjinder Barney [employer] CV ELECTROPHYSIOLOGY PROCS Final Result * (ABNORMAL) eGFR (11/22/2023 4:34 AM COMPLIANCE AND CONTROL ANALYST) eGFR 54(L) >=60 mL/min/1. 73 m2 [facility] Comment: Interpretive Data Reference Interval Normal ?>/= 90 mL/min/1.73m2 Mildly decreased* ? 60 - 89 mL/min/1.73m2 Mildly to moderately decreased ?45 - 59 mL/min/1.73m2 Moderately to severely decreased ??30 - 44 mL/min/1.73m2 Severely decreased ?15 - 29 mL/min/1.73m2 Kidney Failure ?< 15 ??mL/min/1.73m2 *Relative to young adult level Estimated glomerular filtration rate is determined by the 2020 CKD-EPI equation recommended by the National Kidney Foundation (A Unifying Approach to GFR Estimation: Recommendations of the NKF-ASK Task Force on Reassessing the Inclusion of Race in Diagnosing Kidney Disease, JASN 2020). The CKD-EPI equation should not be used for patients with unstable renal function and has not been validated in children and those over 70. Current interpretive data was last reviewed 2021. Blood 11/22/2023 4:34 AM COMPLIANCE AND CONTROL ANALYST 11/22/2023 5:45 AM COMPLIANCE AND CONTROL ANALYST Leonides Soler MD LAB BLOOD ORDERABLES Final Re sult [facility] [place] [address] * (ABNORMAL) CBC without differential (11/22/2023 4:34 AM COMPLIANCE AND CONTROL ANALYST) WBC 10.1(H) 3.8 - 9.9 K/cumm [facility] Hgb 11.4(L) 11.9 - 15.5 g/dL [facility] Hct 35.1(L) 35.6 - 45.5 % [facility] Plt 381 150 - 400 K/cumm [facility] MPV 9.5 9.1 - 12.3 fL [facility] RBC 3.95 3.90 - 5.20 M/cumm [facility] MCV 88.9 81.3 - 96.4 fL [facility] MCH 28.9 27.1 - 33.3 pg [facility] MCHC 32.5 32.3 - 35.7 g/dL [facility] RDW CV 13.1 11.1 - 14.9 % [facility] RDW SD 42.4 35.7 - 48.1 fL [facility] NRBC abs 0.00 0.00 - 0.01 K/cumm [facility] Blood 11/22/2023 4:34 AM COMPLIANCE AND CONTROL ANALYST 11/22/2023 5:45 AM COMPLIANCE AND CONTROL ANALYST Leonides Soler MD LAB BLOOD ORDERABLES Final Re sult Performing Organization Address City/State/[facility] Co de Phone Number [facility] Department [place] [address] * Basic metabolic panel (11/22/2023 4:34 AM COMPLIANCE AND CONTROL ANALYST) Sodium 140 135 - 145 mmol/L [facility] Potassium, pl 4.3 3.3 - 4.9 mmol/L [facility] Chloride 106 97 - 110 mmol/L [facility] CO2 25 22 - 32 mmol/L [facility] Anion gap 9 2 - 15 mmol/L [facility] BUN 19 6 - 25 mg/dL [facility] Creatinine 1.09 0.60 - 1.10 mg/dL [facility] Glucose 93 70 - 199 mg/dL [facility] Comment: Interpretive Data Fasting glucose >/= 126 mg/dl is diagnostic for diabetes. ?? Fasting is defined as no caloric intake for at least 8 hours. Fasting glucose between 100 mg/dl to 125 mg/dl is diagnostic of prediabetes. In a patient with classic symptoms of hyperglycemia or hyperglycemic crisis, a random glucose >/= 200 mg/dl is diagnostic for diabetes. In the absence of unequivocal hyperglycemia, results should be confirmed by repeat testing. The classification and Diagnosis of Diabetes Diabetes Care 2021; 46: S19-S40. Current interpretive data was last revised 2022. Calcium 9.3 8.5 - 10.3 mg/dL [facility] Blood 11/22/2023 4:34 AM COMPLIANCE AND CONTROL ANALYST 11/22/2023 5:45 AM COMPLIANCE AND CONTROL ANALYST Leonides Soler MD LAB BLOOD ORDERABLES Final Re sult Performing Organization Address [facility] de Phone Number [facility] Department [place] [address] * ECG 12 lead (11/21/2023 11:19 AM COMPLIANCE AND CONTROL ANALYST) [facility] Ventricular Rate EKG/Min 97 BPM [facility] QRS-Interval (MSEC) 84 ms [facility] QT-Interval (MSEC) 362 ms [facility] QTc 459 ms [facility] R Dora -10 degrees [facility] T Dora 10 degrees [facility] Diagnosis Atrial fibrillation Nonspecific ST abnormality Abnormal ECG Confirmed by Familia MAK, [facility] ([id number]) on 11/21/2023 1:38:23 PM [facility] 11/21/2023 11:1 9 AM COMPLIANCE AND CONTROL ANALYST 11/21/2023 1:38 PM COMPLIANCE AND CONTROL ANALYST Idris Rosas MD PhD ECG ORDERABLES Fin al Result Performing Organization Address [facility] Phone Number [facility] * (ABNORMAL) eGFR (11/21/2023 4:19 AM COMPLIANCE AND CONTROL ANALYST) Pathologist [facility] eGFR 49(L) >=60 mL/min/1. 73 m2 [facility] Comment: Interpretive Data Reference Interval Normal ?>/= 90 mL/min/1.73m2 Mildly decreased* ? 60 - 89 mL/min/1.73m2 Mildly to moderately decreased ?45 - 59 mL/min/1.73m2 Moderately to severely decreased ??30 - 44 mL/min/1.73m2 Severely decreased ?15 - 29 mL/min/1.73m2 Kidney Failure ?< 15 ??mL/min/1.73m2 *Relative to young adult level Estimated glomerular filtration rate is determined by the 2020 CKD-EPI equation recommended by the National Kidney Foundation (A Unifying Approach to GFR Estimation: Recommendations of the NKF-ASK Task Force on Reassessing the Inclusion of Race in Diagnosing Kidney Disease, JASN 2020). The CKD-EPI equation should not be used for patients with unstable renal function and has not been validated in children and those over 70. Current interpretive data was last reviewed 2021. Blood 11/21/2023 4:19 AM COMPLIANCE AND CONTROL ANALYST 11/21/2023 5:37 AM COMPLIANCE AND CONTROL ANALYST Leonides Soler MD LAB BLOOD ORDERABLES Final Re sult [facility] Department [place] [address] * (ABNORMAL) CBC without differential (11/21/2023 4:19 AM COMPLIANCE AND CONTROL ANALYST) WBC 8.2 3.8 - 9.9 K/cumm [facility] Hgb 11.4(L) 11.9 - 15.5 g/dL [facility] Hct 34.8(L) 35.6 - 45.5 % [facility] Plt 391 150 - 400 K/cumm [facility] MPV 9.4 9.1 - 12.3 fL [facility] RBC 3.91 3.90 - 5.20 M/cumm [facility] MCV 89.0 81.3 - 96.4 fL [facility] MCH 29.2 27.1 - 33.3 pg [facility] MCHC 32.8 32.3 - 35.7 g/dL [facility] RDW CV 13.2 11.1 - 14.9 % [facility] RDW SD 43.0 35.7 - 48.1 fL [facility] NRBC abs 0.00 0.00 - 0.01 K/cumm [facility] Blood 11/21/2023 4:19 AM COMPLIANCE AND CONTROL ANALYST 11/21/2023 5:37 AM COMPLIANCE AND CONTROL ANALYST Leonides Soler MD LAB BLOOD ORDERABLES Final Re sult [facility] Department [place] [address] * (ABNORMAL) Basic metabolic panel (11/21/2023 4:19 AM COMPLIANCE AND CONTROL ANALYST) Pathologist [facility] Sodium 139 135 - 145 mmol/L [facility] Potassium, pl 4.6 3.3 - 4.9 mmol/L [facility] Chloride 102 97 - 110 mmol/L [facility] CO2 25 22 - 32 mmol/L [facility] Anion gap 12 2 - 15 mmol/L [facility] BUN 18 6 - 25 mg/dL [facility] Creatinine 1.19(H) 0.60 - 1.10 mg/dL [facility] Glucose 97 70 - 199 mg/dL [facility] Comment: Interpretive Data Fasting glucose >/= 126 mg/dl is diagnostic for diabetes. ?? Fasting is defined as no caloric intake for at least 8 hours. Fasting glucose between 100 mg/dl to 125 mg/dl is diagnostic of prediabetes. In a patient with classic symptoms of hyperglycemia or hyperglycemic crisis, a random glucose >/= 200 mg/dl is diagnostic for diabetes. In the absence of unequivocal hyperglycemia, results should be confirmed by repeat testing. The classification and Diagnosis of Diabetes Diabetes Care 2021; 46: S19-S40. Current interpretive data was last revised 2022. Calcium 9.4 8.5 - 10.3 mg/dL [facility] Blood 11/21/2023 4:19 AM COMPLIANCE AND CONTROL ANALYST 11/21/2023 5:37 AM COMPLIANCE AND CONTROL ANALYST Leonides Soler MD LAB BLOOD ORDERABLES Final Re sult [facility] [place] [address] * XR Chest 1 View (11/19/2023 10:37 PM COMPLIANCE AND CONTROL ANALYST) Anatomical Region Laterality Modality Body, Chest N/A Computed Radiogr aphy 11/20/2023 9:10 AM COMPLIANCE AND CONTROL ANALYST Impressions 11/20/2023 9:16 AM COMPLIANCE AND CONTROL ANALYST No priors for comparison. No pleural effusion, or pneumothorax. Cardiomediastinal silhouette within normal limits. ??There is question of faint nodular airspace opacity at the left lung bases could be a focus of atelectasis or in the appropriate clinical setting could be a small focus of developing pneumonia. ??Recommend close attention on follow-up radiograph and when clinically feasible, PA and lateral radiograph. Dictated by: Bertin Osborn M.D. The radiology attending physician has personally reviewed this study, and had reviewed and/or edited this written report and agrees with it. Electronically signed by: Carmelita Moss M.D. Narrative 11/20/2023 9:16 AM COMPLIANCE AND CONTROL ANALYST EXAMINATION: 1 view chest radiograph Procedure Note Carmelita Moss MD - 11/20/2023 EXAMINATION: 1 view chest radiograph IMPRESSION: No priors for comparison. No pleural effusion, or pneumothorax. Cardiomediastinal silhouette within normal limits. There is question of faint nodular airspace opacity at the left lung bases could be a focus of atelectasis or in the appropriate clinical setting could be a small focus of developing pneumonia. Recommend close attention on follow-up radiograph and when clinically feasible, PA and lateral radiograph. Dictated by: Bertin Osborn M.D. The radiology attending physician has personally reviewed this study, and had reviewed and/or edited this written report and agrees with it. Electronically signed by: Carmelita Moss M.D. Idris Rosas MD PhD IMG XR PROCEDURES F inal Result * Thyroid Function Grady (11/19/2023 9:59 PM COMPLIANCE AND CONTROL ANALYST) TSH 0.81 0.30 - 4.20 mcIUnit/mL [facility] Blood 11/19/2023 9:59 PM COMPLIANCE AND CONTROL ANALYST 11/19/2023 10:32 PM COMPLIANCE AND CONTROL ANALYST us Idris Rosas MD PhD LAB BLOOD ORDERABLE S Final Result [facility] [place] [address] * (ABNORMAL) eGFR (11/19/2023 9:59 PM COMPLIANCE AND CONTROL ANALYST) eGFR 54(L) >=60 mL/min/1. 73 m2 [facility] Comment: Interpretive Data Reference Interval Normal ?>/= 90 mL/min/1.73m2 Mildly decreased* ? 60 - 89 mL/min/1.73m2 Mildly to moderately decreased ?45 - 59 mL/min/1.73m2 Moderately to severely decreased ??30 - 44 mL/min/1.73m2 Severely decreased ?15 - 29 mL/min/1.73m2 Kidney Failure ?< 15 ??mL/min/1.73m2 *Relative to young adult level Estimated glomerular filtration rate is determined by the 2020 CKD-EPI equation recommended by the National Kidney Foundation (A Unifying Approach to GFR Estimation: Recommendations of the NKF-ASK Task Force on Reassessing the Inclusion of Race in Diagnosing Kidney Disease, JASN 2020). The CKD-EPI equation should not be used for patients with unstable renal function and has not been validated in children and those over 70. Current interpretive data was last reviewed 2021. Blood 11/19/2023 9:59 PM COMPLIANCE AND CONTROL ANALYST 11/19/2023 10:38 PM COMPLIANCE AND CONTROL ANALYST us Loyda Azul MD PhD LAB BLOOD ORDERABLES F inal Result Performing Organization Address City/[facility] Co de Phone Number [facility] [employer] [place], [place] [id number] * Magnesium (11/19/2023 9:59 PM COMPLIANCE AND CONTROL ANALYST) Pathologist [facility] Magnesium 2.2 1.4 - 2.5 mg/dL [facility] Blood 11/19/2023 9:59 PM COMPLIANCE AND CONTROL ANALYST 11/19/2023 10:32 PM COMPLIANCE AND CONTROL ANALYST Idris Rosas MD PhD LAB BLOOD ORDERABLE S Final Result Performing Organization Address [facility] de Phone Number [place], [place] [id number] * (ABNORMAL) Protime-INR (11/19/2023 9:59 PM COMPLIANCE AND CONTROL ANALYST) [facility] PT 14.2(H) 10.3 - 13.7 sec [facility] INR 1.25(H) 0.90 - 1.20 [facility] Comment: Interpretive data Oral anticoagulant therapeutic ranges: Venous thromboembolism prophylaxis or treatment: 2.0-3.0 CARDIOLOGY Standard range: 2.0-3.0 High-intensity range: 2.5-3.5 Refer to indication-specific guidelines for appropriate target ranges for prosthetic heart valve replacement. Current interpretive data was last revised on 2019. Blood 11/19/2023 9:59 PM COMPLIANCE AND CONTROL ANALYST 11/19/2023 10:32 PM COMPLIANCE AND CONTROL ANALYST Idris Rosas MD PhD LAB BLOOD ORDERABLE S Final Result Performing Organization Address [facility] Co de Phone Number [facility] [employer] [place], [place] [phone] * Differential, auto (11/19/2023 9:59 PM COMPLIANCE AND CONTROL ANALYST) Pathologist [facility] Neutrophil abs 5.8 1.5 - 6.5 K/cumm [facility] Imm gran abs 0.0 0.0 - 0.1 K/cumm [facility] Lymphocyte abs 2.4 0.8 - 3.3 K/cumm [facility] Monocyte abs 0.8 0.2 - 0.8 K/cumm [facility] Eosinophil abs 0.1 0.0 - 0.5 K/cumm [facility] Basophil abs 0.1 0.0 - 0.1 K/cumm [facility] Neutrophil pct 63.4 % [facility] Comment: Interpretive Data Percent cell count reference ranges are not reported, since discordance with absolute values may lead to misinterpretation of CBC data. Current Interpretive Data was last revised on 2017. Imm gran pct 0.4 % [facility] Comment: Interpretive Data Percent cell count reference ranges are not reported, since discordance with absolute values may lead to misinterpretation of CBC data. Current Interpretive Data was last revised on 2017. Lymphocyte pct 26.1 % [facility] Comment: Interpretive Data Percent cell count reference ranges are not reported, since discordance with absolute values may lead to misinterpretation of CBC data. Current Interpretive Data was last revised on 2017. Monocyte pct 8.4 % [facility] Comment: Interpretive Data Percent cell count reference ranges are not reported, since discordance with absolute values may lead to misinterpretation of CBC data. Current Interpretive Data was last revised on 2017. Eosinophil pct 1.2 % [facility] Comment: Interpretive Data Percent cell count reference ranges are not reported, since discordance with absolute values may lead to misinterpretation of CBC data. Current Interpretive Data was last revised on 2017. Basophil pct 0.5 % [facility] Comment: Interpretive Data Percent cell count reference ranges are not reported, since discordance with absolute values may lead to misinterpretation of CBC data. Current Interpretive Data was last revised on 2017. Blood 11/19/2023 9:59 PM COMPLIANCE AND CONTROL ANALYST 11/19/2023 10:26 PM COMPLIANCE AND CONTROL ANALYST us Loyda Azul MD PhD LAB BLOOD ORDERABLES F inal Result [facility] [place] [address] * (ABNORMAL) Lipid panel (11/19/2023 9:59 PM COMPLIANCE AND CONTROL ANALYST) [facility] Cholesterol 212(H) 30 - 199 mg/dL [facility] Comment: Interpretive Data Ages < or = 19 years ??Acceptable: ? <170 mg/dL ??Borderline high: ??170-199 mg/dL ??High: ? >or= 200 mg/dL Ages > or = 20 years ??Desirable: ?<200 mg/dL ??Borderline high: ??200-239 mg/dL ??High: ? >or= 240 mg/dL Literature References: 1. Expert Panel on Integrated Guidelines for Cardiovascular Health and Risk Reduction in Children and Adolescents. Pediatrics 2011;128:S213 2. NCEP Expert Panel. Circulation 2004;110:227 Current Interpretive Data was last revised on 2018. Triglycerides 104 <=149 mg/dL [facility] Comment: Interpretive Data Ages < or = 9 years ??Acceptable: ? <75 mg/dL ??Borderline high: ??75-99 mg/dL ??High: ? >or= 100 mg/dL Ages 10 to 20 years ??Acceptable: ? <90 mg/dL ??Borderline high: ??90-129 mg/dL ??High: ? >or= 130 mg/dL Ages > or = 20 years ??Desirable: ?<150 mg/dL ??Borderline high: ??150-199 mg/dL ??High: ? 200-499 mg/dL ?Very high: ?? >or= 499 mg/dL Literature References: 1. Expert Panel on Integrated Guidelines for Cardiovascular Health and Risk Reduction in Children and Adolescents. Pediatrics 2011;128:S213 2. NCEP Expert Panel. Circulation 2004;110:227 Current Interpretive Data was last revised on 2018. HDL 55 >=40 mg/dL [facility] Comment: Interpretive Data Ages < or = 19 years ??Acceptable: ? >45 mg/dL ??Borderline low: ?? 40-45 mg/dL ??Low: ? <40 mg/dL Ages > or = 20 years ??Desirable: ?>or= 60 mg/dL ??Low: ? <40 mg/dL Literature References: 1. Expert Panel on Integrated Guidelines for Cardiovascular Health and Risk Reduction in Children and Adolescents. Pediatrics 2011;128:S213 2. NCEP Expert Panel. Circulation 2004;110:227 Current Interpretive Data was last revised on 2018. LDL, calculated 136(H) <=129 mg/dL [facility] Comment: Interpretive Data Ages < or = 19 years ??Acceptable: ? <110 mg/dL ??Borderline high: ??110-129 mg/dL ??High: ?>or= 130 mg/dL Ages > or = 20 years ??Optimal: ? <100 mg/dL ??Near optimal: ?100-129 mg/dL ??Borderline high: ?? 130-159 mg/dL ??High: ?>160 mg/dL Literature References: 1. Expert Panel on Integrated Guidelines for Cardiovascular Health and Risk Reduction in Children and Adolescents. Pediatrics 2011;128:S213 2. NCEP Expert Panel. Circulation 2004;110:227 Current Interpretive Data was last revised on 2018. Non-HDL Cholesterol 157 mg/dL [facility] Comment: Interpretive Data Ages < or = 19 years ??Acceptable: ?<120 mg/dL ??Borderline high: ??120-144 mg/dL ??High: ?>145 mg/dL Ages > or = 20 years ??When triglycerides are >200 mg/dL, Non-HDL cholesterol is a secondary target of ? therapy with treatment goals that are 30 mg/dL greater than the LDL cholesterol target. ? Literature References: 1. Expert Panel on Integrated Guidelines for Cardiovascular Health and Risk Reduction in Children and Adolescents. Pediatrics 2011;128:S213 2. NCEP Expert Panel. Circulation 2004;110:227 Current Interpretive Data was last revised on 2018. Chol/HDL ratio 4 [facility] Blood 11/19/2023 9:59 PM COMPLIANCE AND CONTROL ANALYST 11/19/2023 10:32 PM COMPLIANCE AND CONTROL ANALYST us Loyda Azul MD PhD LAB BLOOD ORDERABLES F inal Result [facility] [place] [address] * Comprehensive metabolic panel (11/19/2023 9:59 PM COMPLIANCE AND CONTROL ANALYST) Sodium 140 135 - 145 mmol/L [facility] Potassium, pl 4.5 3.3 - 4.9 mmol/L [facility] Chloride 104 97 - 110 mmol/L [facility] CO2 25 22 - 32 mmol/L [facility] Anion gap 11 2 - 15 mmol/L [facility] BUN 17 6 - 25 mg/dL [facility] Creatinine 1.09 0.60 - 1.10 mg/dL [facility] Glucose 96 70 - 199 mg/dL [facility] Comment: Interpretive Data Fasting glucose >/= 126 mg/dl is diagnostic for diabetes. ?? Fasting is defined as no caloric intake for at least 8 hours. Fasting glucose between 100 mg/dl to 125 mg/dl is diagnostic of prediabetes. In a patient with classic symptoms of hyperglycemia or hyperglycemic crisis, a random glucose >/= 200 mg/dl is diagnostic for diabetes. In the absence of unequivocal hyperglycemia, results should be confirmed by repeat testing. The classification and Diagnosis of Diabetes Diabetes Care 202; 46: S19-S40. Current interpretive data was last revised 2022. Calcium 9.4 8.5 - 10.3 mg/dL [facility] Bilirubin, total 0.2 0.1 - 1.2 mg/dL [facility] Protein, pl 7.7 6.5 - 8.5 g/dL [facility] Albumin 4.2 3.5 - 5.0 g/dL [facility] Alk phos 57 40 - 130 Units/L [facility] ALT 12 7 - 45 Units/L [facility] AST 20 10 - 45 Units/L [facility] Blood 11/19/2023 9:59 PM COMPLIANCE AND CONTROL ANALYST 11/19/2023 10:32 PM COMPLIANCE AND CONTROL ANALYST Loyda Azul MD PhD LAB BLOOD ORDERABLES F inal Result [facility] [place] [place] [address] * (ABNORMAL) CBC with auto differential (11/19/2023 9:59 PM COMPLIANCE AND CONTROL ANALYST) [facility] WBC 9.2 3.8 - 9.9 K/cumm [facility] Hgb 11.0(L) 11.9 - 15.5 g/dL [facility] Hct 33.0(L) 35.6 - 45.5 % [facility] Plt 374 150 - 400 K/cumm [facility] MPV 9.4 9.1 - 12.3 fL [facility] RBC 3.73(L) 3.90 - 5.20 M/cumm [facility] MCV 88.5 81.3 - 96.4 fL [facility] MCH 29.5 27.1 - 33.3 pg [facility] MCHC 33.3 32.3 - 35.7 g/dL [facility] RDW CV 13.0 11.1 - 14.9 % [facility] RDW SD 42.3 35.7 - 48.1 fL [facility] NRBC abs 0.00 0.00 - 0.01 K/cumm [facility] Blood 11/19/2023 9:59 PM COMPLIANCE AND CONTROL ANALYST 11/19/2023 10:26 PM COMPLIANCE AND CONTROL ANALYST Loyda Azul MD PhD LAB BLOOD ORDERABLES F inal Result [facility] [place] [address] * (ABNORMAL) aPTT (11/19/2023 9:59 PM COMPLIANCE AND CONTROL ANALYST) aPTT 39(H) 28 - 38 sec [facility] Comment: Interpretive Data Heparin therapeutic range: 66.0 - 100.0 seconds. Range based on correlation with therapeutic heparin activity range of 0.3 - 0.7 Units/mL. Current interpretive data was last revised on 2023. Blood 11/19/2023 9:59 PM COMPLIANCE AND CONTROL ANALYST 11/19/2023 10:32 PM COMPLIANCE AND CONTROL ANALYST us Loyda Azul MD PhD LAB BLOOD ORDERABLES F inal Result Performing Organization Address [facility] Co de Phone Number [facility] [place] [address] * ECG 12 lead (11/19/2023 9:02 PM COMPLIANCE AND CONTROL ANALYST) Ventricular Rate EKG/Min 113 BPM [facility] QRS-Interval (MSEC) 88 ms [facility] QT-Interval (MSEC) 328 ms [facility] QTc 449 ms [facility] R Dora -1 degrees [facility] T Dora 26 degrees [facility] Diagnosis Atrial fibrillation/f lutter with rapid ventricular response Nonspecific ST abnormality Abnormal ECG No previous ECGs available Confirmed by BRITTNI COLE M.D ([id number]) on 11/20/2023 1:22:10 PM [facility] 11/19/2023 9:02 PM COMPLIANCE AND CONTROL ANALYST 11/20/2023 1:22 PM COMPLIANCE AND CONTROL ANALYST Idris Rosas MD PhD ECG ORDERABLES Fin al Result Performing Organization Address [facility] Co de Phone Number [facility] documented in this encounter Visit Diagnoses Diagnosis Atrial fibrillation (CMS/HCC) (HCC)- Primary Atrial fibrillation Atrial fibrillation, unspecified type (HCC) TAZ on CPAP Class 2 obesity with body mass index (BMI) of 38.0 to 38.9 in adult Essential hypertension Unspecified essential hypertension Atrial fibrillation, unspecified type (HCC) documented in this encounter Admitting Diagnoses Diagnosis Atrial fibrillation (CMS/HCC) (HCC) Atrial fibrillation documented in this encounter Administered Medications Inactive Administered Medications - up to 3 most recent administrations Medication Order MAR Action Action Date Dose Rate Site acetaminophen (TYLENOL) tablet 650 mg 650 mg, oral, Every 4 hours PRN, 1st line for pain, fever, fever greater than 38.3 C, Starting on Sat11/19/23 at 2059, Indications: Fever, PainIndications:Fever,Pain Given 11/22/2023 9:01 AM COMPLIANCE AND CONTROL ANALYST 650 mg Given 11/21/2023 10:13 PM COMPLIANCE AND CONTROL ANALYST 650 mg Given 11/20/2023 9:07 PM COMPLIANCE AND CONTROL ANALYST 650 mg apixaban (ELIQUIS) tablet 5 mg 5 mg, oral, Every 12 hours scheduled, First dose on Sat11/19/23 at 2300, Nurse to discontinue heparin infusion order and associated bolus at first administration of apixaban using ? order condition met? order source, Indications: atrial fibrillationIndications:atrial fibrillation Given 11/22/2023 9:01 AM COMPLIANCE AND CONTROL ANALYST 5 mg Given 11/21/2023 8:10 PM COMPLIANCE AND CONTROL ANALYST 5 mg Given 11/21/2023 9:05 AM COMPLIANCE AND CONTROL ANALYST 5 mg diphenhydrAMINE (BENADRYL) tab/cap 25 mg 25 mg, oral, Nightly PRN, allergies, Starting on Sat11/19/23 at 2232 Given 11/21/2023 10:13 PM COMPLIANCE AND CONTROL ANALYST 25 mg Given 11/20/2023 9:07 PM COMPLIANCE AND CONTROL ANALYST 25 mg Given 11/19/2023 11:17 PM COMPLIANCE AND CONTROL ANALYST 25 mg dofetilide (TIKOSYN) capsule 125 mcg 125 mcg, oral, 2 times daily, First dose (after last modification) on Sat11/20/23 at 2100, Ensure patient has drug supply prior to discharge., Indications: cardiac arrhythmiaIndications:cardiac arrhythmia Given 11/22/2023 7:04 AM COMPLIANCE AND CONTROL ANALYST 125 mcg Given 11/21/2023 8:10 PM COMPLIANCE AND CONTROL ANALYST 125 mcg Given 11/21/2023 9:04 AM COMPLIANCE AND CONTROL ANALYST 125 mcg metoprolol XL (TOPROL-XL) extended release tablet 100 mg 100 mg, oral, Daily, First dose on Sat11/20/23 at 0900, Tablets that are scored may be split, but do not crush, chew, dissolve, open or otherwise manipulate tablet/capsule. Given 11/22/2023 9:02 AM COMPLIANCE AND CONTROL ANALYST 100 mg Given 11/21/2023 9:05 AM COMPLIANCE AND CONTROL ANALYST 100 mg Given 11/20/2023 9:58 AM COMPLIANCE AND CONTROL ANALYST [address] (PROTONIX) extended release tablet 40 mg 40 mg, oral, Daily, First dose on Sat11/20/23 at 0900, Do not crush, chew, cut, dissolve, open or otherwise manipulate tablet/capsule., Indications: Treatment of Non-Bleeding Gastric DisorderIndications:Treatment of Non-Bleeding Gastric Disorder Given 11/22/2023 9:01 AM COMPLIANCE AND CONTROL ANALYST 40 mg Given 11/21/2023 9:05 AM COMPLIANCE AND CONTROL ANALYST 40 mg Given 11/20/2023 9:58 AM COMPLIANCE AND CONTROL ANALYST 40 mg sodium chloride 0.9% flush 0.5-20 mL 0.5-20 mL, intra-catheter, Every 8 hours scheduled, First dose on Sat11/19/23 at 2200, Flush volume based on line type and size. Given 11/21/2023 8:10 PM COMPLIANCE AND CONTROL ANALYST 10 mL Given 11/21/2023 9:06 AM COMPLIANCE AND CONTROL ANALYST 10 mL Given 11/20/2023 9:10 PM COMPLIANCE AND CONTROL ANALYST 10 mL spironolactone (ALDACTONE) tablet 50 mg 50 mg, oral, Daily, First dose on Sat11/20/23 at 0900 Given 11/22/2023 9:02 AM COMPLIANCE AND CONTROL ANALYST 50 mg Given 11/21/2023 9:05 AM COMPLIANCE AND CONTROL ANALYST 50 mg Given 11/20/2023 9:58 AM COMPLIANCE AND CONTROL ANALYST 50 mg documented in this encounter Discontinued Medications Medication Sig Discontinue Reason Start Date End Da te dofetilide (TIKOSYN) 125 mcg capsuleIndications:Card ioversion of Atrial Fibrillation Take 1 capsule (125 mcg total) by mouth 2 (two) times a day 11/22/2023 11/22/2023 metoprolol XL (TOPROL-XL) 50 mg extended release tablet Take 1 tablet (50 mg total) by mouth daily Stop Taking at Discharge 11/13/2023 11/22/2023 documented as of this encounter Active and Recently Administered Medications Times are shown in COMPLIANCE AND CONTROL ANALYST. Scheduled Medication Order 11/20/2023 11/21/2023 11/22/2023 apixaban (ELIQUIS) tablet 5 mg 5 mg, oral, Every 12 hours scheduled, First dose on Sat11/19/23 at 2300, Nurse to discontinue heparin infusion order and associated bolus at first administration of apixaban using ? order condition met? order source, Indications: atrial fibrillation 957 (Given - Provider: Tang Pollack RN)2107 (Given - Provider: Lillian Wooten RN) 904 (Given - Provider: Ko Mejia, TAIWO)2009 (Given - Provider: Sandy Mckeon RN) 618 (NOV Hold - Provider: Automatic Transfer Provider - Reason: Patient not available)08 (MAR Unhold - Provider: Automatic Transfer Provider)09 (Given - Provider: Tiana Camp RN) dofetilide (TIKOSYN) capsule 125 mcg 125 mcg, oral, 2 times daily, First dose (after last modification) on Sat11/20/23 at 2100, Ensure patient has drug supply prior to discharge., Indications: cardiac arrhythmia 2107 (Given - Provider: Lillian Wooten RN) 903 (Given - Provider: Ko Mejia RN)2009 (Given - Provider: Sandy Mckeon RN) 618 (MAR Hold - Provider: Automatic Transfer Provider - Reason: Patient not available)703 (Given - Provider: Tara Marshall RN)08 (MAR Unhold - Provider: Automatic Transfer Provider)0902 (Canceled Entry - Provider: Tiana Camp RN - Comment: medication already administered) dofetilide (TIKOSYN) capsule 250 mcg (CANCELED) 250 mcg, oral, 2 times daily, First dose on Sat11/20/23 at 0015, Ensure patient has drug supply prior to discharge., Indications: cardiac arrhythmia 36 (Given - Provider: Lillian Wooten RN)0957 (Given - Provider: Tang Pollack RN) metoprolol XL (TOPROL-XL) extended release tablet 100 mg 100 mg, oral, Daily, First dose on Sat11/20/23 at 0900, Tablets that are scored may be split, but do not crush, chew, dissolve, open or otherwise manipulate tablet/capsule. 957 (Given - Provider: Tang Pollack RN) 904 (Given - Provider: Ko Mejia RN) 618 (MAR Hold - Provider: Automatic Transfer Provider - Reason: Patient not available)0843 ([facility] Unhold - Provider: Automatic Transfer Provider)0902 (Given - Provider: Tiana Camp, TAIWO) pantoprazole DR (PROTONIX) extended release tablet 40 mg 40 mg, oral, Daily, First dose on Sat11/20/23 at 0900, Do not crush, chew, cut, dissolve, open or otherwise manipulate tablet/capsule., Indications: Treatment of Non-Bleeding Gastric Disorder 0958 (Given - Provider: Tang Pollack RN) 0905 (Given - Provider: Ko Mejia, TAIWO) 0619 ([facility] Hold - Provider: Automatic Transfer Provider - Reason: Patient not available)0843 ([facility] Unhold - Provider: Automatic Transfer Provider)09 (Given - Provider: Tiana Camp RN) sodium chloride 0.9% flush 0.5-20 mL 0.5-20 mL, intra-catheter, Every 8 hours scheduled, First dose on Sat11/19/23 at 2200, Flush volume based on line type and size. 0958 (Given - Provider: Tang Pollack RN)1456 (Given - Provider: Tang Pollack RN)2110 (Given - Provider: Lillian Wooten RN) 09 (Given - Provider: Ko Mejia, TAIWO)2009 (Given - Provider: Sandy Mckeon, TAIWO) 0403 (Canceled Entry - Provider: Sandy Mckeon, TAIWO)06 (Canceled Entry - Provider: Sandy Mckeon, TAIWO)0619 ([facility] Hold - Provider: Automatic Transfer Provider - Reason: Patient not available)0843 ([facility] Unhold - Provider: Automatic Transfer Provider)1400 (Due) spironolactone (ALDACTONE) tablet 50 mg 50 mg, oral, Daily, First dose on Sat11/20/23 at 0900 0958 (Given - Provider: Tang Pollack RN) 0905 (Given - Provider: Ko Mejia, TAIWO) 0619 ([facility] Hold - Provider: Automatic Transfer Provider - Reason: Patient not available)0843 ([facility] Unhold - Provider: Automatic Transfer Provider)09 (Given - Provider: Tiana Camp, TAIWO) Continuous Medication Order 11/20/2023 11/21/2023 11/22/2023 sodium chloride 0.9% infusion (CANCELED) 30 mL/hr, intravenous, Continuous, Starting on Sat11/22/23 at 0730 0655 (New Bag - Prov ider: Tara Marshall RN)0746 (Rate/Dose Verify - Provider: Sebastián Davis CRNA)0754 (Stopped - Provider: Sebastián Davis CRNA) PRN Medication Order 11/20/2023 11/21/2023 11/22/2023 acetaminophen (TYLENOL) tablet 650 mg 650 mg, oral, Every 4 hours PRN, 1st line for pain, fever, fever greater than 38.3 C, Starting on Sat11/19/23 at 2058, Indications: Fever, Pain 1008 (Given - Provider: Tang Pollack RN)2106 (Given - Provider: Lillian Wooten, TAIWO) 221 (Given - Provider: Sandy Mckeon, TAIWO) 0619 ([facility] Hold - Provider: Automatic Transfer Provider - Reason: Patient not available)0843 ([facility] Unhold - Provider: Automatic Transfer Provider)0901 (Given - Provider: Tiana Capm RN) Carrier Fluids for Secondary Infusion - 0.9% Sodium Chloride 30 mL, intravenous, As needed, For priming tubing and/or flushing, Starting on Sat11/19/23 at 2058, 0-250 ml/hr to flush line after IV infusions when no maintenance IV ordered. Infuse 30mL at the same rate as the secondary infusion. Run as primary IV, not intended for KVO. 0619 ([facility] Hold - Provider: Automatic Transfer Provider - Reason: Patient not available)0843 ([facility] Unhold - Provider: Automatic Transfer Provider) diphenhydrAMINE (BENADRYL) tab/cap 25 mg 25 mg, oral, Nightly PRN, allergies, Starting on Sat11/19/23 at 2232 2107 (Given - Provider: Lillian Wooten, TAIWO) 2213 (Given - Provider: Sandy Mckeon, TAIWO) 0619 ([facility] Hold - Provider: Automatic Transfer Provider - Reason: Patient not available)0843 ([facility] Unhold - Provider: Automatic Transfer Provider) ramelteon (ROZEREM) tablet 8 mg 8 mg, oral, Nightly PRN, sleep, Starting on Sat11/19/23 at 2058, Indications: Sleep-Onset Insomnia 0619 ([facility] Hold - Provider: Automatic Transfer Provider - Reason: Patient not available)0843 ([facility] Unhold - Provider: Automatic Transfer Provider) senna-docusate (PERICOLACE) 8.6-50 mg per tablet 1 tablet 1 tablet, oral, 2 times daily PRN, constipation, Starting on Sat11/19/23 at 2058, Indications: constipation 0619 ([facility] Hold - Provider: Automatic Transfer Provider - Reason: Patient not available)0843 ([facility] Unhold - Provider: Automatic Transfer Provider) sodium chloride 0.9% flush 0.5-20 mL 0.5-20 mL, intra-catheter, As needed, line care, Starting on Sat11/19/23 at 2058, Flush volume based on line type and size. Flush before and after each use. 0619 ([facility] Hold - Provider: Automatic Transfer Provider - Reason: Patient not available)0843 ([facility] Unhold - Provider: Automatic Transfer Provider) documented in this encounter Orders Medications Ordered That Kobe ht Not Have Been Administered Count Last Ordered Date First Ordered Date sodium chloride 0.9% infusion 1 11/22/2023 dofetilide (TIKOSYN) capsule 125 mcg 10/25 acetaminophen (TYLENOL) tablet 650 mg apixaban (ELIQUIS) tablet 5 mg 11/19/2023 Carrier Fluids for Secondary Infusion - 0.9% Sodium Chloride 11/19/2023 diphenhydrAMINE (BENADRYL) tab/cap 25 mg 11/19/2023 dofetilide (TIKOSYN) capsule 250 mcg 10/25 metoprolol XL (TOPROL-XL) ex tended release tablet 100 mg 11/19/2023 metoprolol XL (TOPROL-XL) ex tended release tablet 50 mg 11/19/2023 ondansetron (ZOFRAN) injection 4 mg 11/19 ondansetron ODT (ZOFRAN-ODT) disintegrating tablet 4 mg 11/19/[address] (PROTONIX) e xtended release tablet 40 mg 11/19/2023 ramelteon (ROZEREM) tablet 8 mg senna-docusate (PERICOLACE) 8.6-50 mg per tablet 1 tablet 1 11/19/2023 sodium chloride 0.9% flush 0.5-20 mL 2 10/25 spironolactone (ALDACTONE) tablet 50 mg 1 0 11/19/2023 Lab Orders Without Results Count Last Ordered D ate First Ordered Date MAGNESIUM 1 11/20/2023 EKG Orders Without Results Count Last Ordered D ate First Ordered Date ECG 12-LEAD 6 11/22/2023 11/20/2023 Diet Count Last Ordered Date First Orde red Date ADULT DISCHARGE DIET 1 11/22/2023 Nursing Count Last Ordered Date First Orde red Date DISCHARGE ACTIVITY 1 11/22/2023 DISCHARGE CALL PROVIDER 3 11/22/2023 DISCHARGE INSTRUCTIONS 1 11/22/2023 TELEMETRY MONITORING 1 11/19/2023 WEIGH PATIENT 1 11/19/2023 Admission Count Last Ordered Date First Orde red Date ADMIT TO INPATIENT 1 11/19/2023 Discharge Count Last Ordered Date First Orde red Date DISCHARGE PATIENT 1 11/22/2023 CORE MEASURES Count Last Ordered Date First Ord ered Date REASON FOR NO VTE PROPHYLAXIS AT ADMISSION 1 11/19/2023 Case Request Count Last Ordered Date First Orde red Date CASE REQUEST EP LAB 1 11/21/2023 ADT Patient Update Count Last Ordered Date Firs t Ordered Date PROVIDER TREATMENT TEAM 1 11/19/2023 documented in this encounter Care Teams Computer Programming Supervisor Relationship Specialty Start Date End Date Rinku Beasley MD [address] [place] [address] PCP - General 09/08/19 documented as of this encounter
--- OUTSIDE RECORDS SUMMARY | 2024-10-06 05:35 | XMS_ITS | Encounter Summary ---
Author Organization [facility] Address [address] [place] [address] Care Team Providers Care Rn Acute Name Role Phone Rinku Beasley MD Primary Care Provider + Encounter Details Date Type Department Care Team (Late st Contact Info) Description 05/13/2024 External Device Data STL ABSTRACTION Provider, Abstract [...] st Contact Info) Description 11/09/2024 1:15 PM TRAFFIC CONTROL SIGNALER Office Visit [facility] - [place] [address] [place] [address] [facility] [address] [place] [address] Jacinto Arzate MD [address] [facility] [address] [place] [address] documented as of this encounter Visit Diagnoses Not on filedocumented in this encounter Care Teams Rn Acute Relationship Specialty Start Date End Date Rinku Beasley MD [address] [place] [address] PCP - General Internal Medicine 05/22/23 documented as of this encounter
--- OUTSIDE RECORDS SUMMARY | 2024-10-06 05:35 | XMS_ITS | Continuity of Care Document ---
Author Organization [facility] Address [address] [place] [address] Phone Care Team Providers Care Seed Mill Superintendent Name Role Phone Philip, Edward Unavailable Unavailable Advance Directives Directive Yes / No Effective Date File Name No Information Encounters Encounter Description Practice Location Reason(s) For Visit Diagnoses Date Provider Providers Copied on Encounter [facility], [address], [place], [place], [id number], [place] tel:[phone] No Information Sep-1 0-200 3 Doisy Edward. [address] , [address], [place], [address], [place]. tel:[phone] Family History Family Member Type Diagnosis Age At Onset No Information Payers Payer name Insurance type Covered green party ID Authoriza tion(s) [employer] SOI CI [id number] Social History Type Description Quantity Date Captured [...]
--- OUTSIDE RECORDS SUMMARY | 2024-10-06 05:35 | XMS_ITS | Encounter Summary ---
Author Organization [facility] SAIDA Agrawal [facility] Address [address] [place] [address] Care Team Providers Care Injection Molding Engineer Name Role Phone Rinku Beasley MD Primary Care Provider + Encounter Details Date Type Department Care Team (Late st Contact Info) Description 12/17/2023 Orders Only [facility] Oncology and Hematology - [place] [address] [place] [address] Jacinto Arzate MD [address] [place] [address] [employer] [address] [place] [address] Social History Tobacco Use Types Packs/Day [...] st Contact Info) Description 11/09/2024 1:15 PM CURRICULUM DIRECTOR Office Visit [facility] Oncology and Hematology - [place] [address] [place] [address] Jacinto Arzate MD [address] [facility] [employer] [address] [place] [address] documented as of this encounter Procedures Procedure Name Priority Date/Time Associated Diagnosis Comments CBC WITH DIFFERENTIAL Routine 12/17/2023 2:29 PM CDT documented in this encounter Results * CBC WITH DIFFERENTIAL (12/17/2023 2:29 PM CDT) Blood Jacinto Arzate MD HEMATOLOGY ORDERABLE S documented in this encounter Visit Diagnoses Not on filedocumented in this encounter Care Teams Injection Molding Engineer Relationship Specialty Start Date End Date Rinku Beasley MD [address] [place] [phone] PCP - General Internal Medicine 05/22/23 documented as of this encounter
--- OUTSIDE RECORDS SUMMARY | 2024-10-06 05:35 | XMS_ITS | Encounter Summary ---
Author Organization [facility] Address [address] [place] [address] Care Team Providers Care Audio Visual Project Manager Name Role Phone Rinku Beasley MD Primary Care Provider Reason for Visit * Reason Comments Follow-up Encounter Details Date Type Department Care Team (Latest Contact Info) Description 09/17/2023 4:00 PM TOUR SALES REPRESENTATIVE Office Visit [facility] Cardiology [address] [place] [address] Saul Tee MD [address] [place] [address] Paroxysmal atrial fibrillation (CMS/HCC) (HCC) (Primary Dx); [...] on file Legal Sex Female 12:33 AM TOUR SALES REPRESENTATIVE Gender Identity Not on file Sexual Orientation Not on file documented as of this encounter Last Filed Vital Signs Vital Sign Reading Time Taken Comments Blood Pressure 118/60 09/17/2023 3:33 PM TOUR SALES REPRESENTATIVE Pulse 78 09/17/2023 3:33 PM TOUR SALES REPRESENTATIVE Temperature - - Respiratory Rate - - Oxygen Saturation 99% 09/17/2023 3:33 PM TOUR SALES REPRESENTATIVE Inhaled Oxygen Concentration - - Weight 102.1 kg (225 lb) 09/17/2023 3:33 PM TOUR SALES REPRESENTATIVE Height 160 cm (5' 3 ) 09/17/2023 3:33 PM TOUR SALES REPRESENTATIVE Body Mass Index 39.86 09/17/2023 3:33 PM TOUR SALES REPRESENTATIVE documented in this encounter Progress Notes * Saul Tee MD - 09/17/2023 4:00 PM CST [facility] FOLLOW UP 09/17/2023 Lluvia Castaneda is a 73 y.o. female [...] 06/07/2021 restoring sinus rhythm. Following cardioversion and mandaeism of sinus rhythm she felt much better. We began the process of we weaning down medications. Amiodarone was reduced to 200 mg daily. Eventually the drug was reduced even further to 100 mg every other day. The patient did have some symptoms of dyspnea in 2021 which led to a Holter monitor that did not demonstrate any arrhythmias of significance. In the fall of 2022 the patient was seen in the office by my nurse practitioner. She was found to be back in atrial fibrillation. According to the notes the patient was placed on metoprolol at higherdoses for rate control and is no longer taking amiodarone. She is systemically anticoagulated with apixaban. A sleep study was done which of course in view of her significant obesity was abnormal showing evidence of sleep apnea. She now has a CPAP machine she reports to be compliant with. My last appointment with this patient was in October of 2022. She saw the nurse practitioner in April of this year for routine follow- up and was in sinus rhythm at that time. She has now been placed on a high dose of metoprolol which is providing reasonably good rate control. She was taken off of amiodarone because her PCP was concerned about lung toxicity. The chances of that were quite low on the very minimal dose that she was taking previously. Had a discussion with the patient today about the option of attempting another DC cardioversion at this time since she is persisting in AFib and continues to report symptoms of fatigue and lack of energy with some exertional dyspnea that are being attributed to her AF. Since she now has treated sleep apnea in his on a higher dose of metoprolol restoringsinus rhythm electrically would be the easiest in simple as thing to recommend at this time. REVIEW OF SYSTEMS General ROS: negative for [...] (two) times a day, Disp: , Rfl: yonqjldmdybq-mftfsrcs-wsqteg tablet, Take 1 tablet by mouth daily, [...] 09/17/2023), Disp: , Rfl: cholecalciferol (VITAMIN D-3) 88151 unit capsule, Take 1 Units by mouth [...] for component: LABALBU PHYSICAL EXAM Vitals BP 118/60 (BP Location: Left arm, Patient Position: Sitting) Pulse 78 Ht 160 cm (5' 3 ) Wt 102.1 kg (225 lb) SpO2 99% BMI 39.86 kg/m?? Physical Examination: General appearance - alert, [...] atrial fibrillation Obesity Mild mitral regurgitation PLAN/RECOMMENDATIONS Schedule DC cardioversion at [facility] at a time of mutual convenience. Spoke with the patient about my upcoming vacation we both feel this can wait until I get back from vacation she is not greatly symptomatic where need 1 of my partners to perform this procedure After DC cardioversion we will arrange for follow-up and of course have to decide whether chronic AF or electrophysiology consultation will be considered Saul Tee MD SALES REPRESENTATIVE documented in this encounter Plan of Treatment Not on file documented as of this encounter Visit Diagnoses Diagnosis Paroxysmal atrial fibrillation (CMS/HCC) (HCC)- Primary Atrial fibrillation Nonrheumatic mitral valve regurgitation documented in this encounter Historical Medications * This list may reflect changes made after this encounter. azelastine (ASTELIN) 137 mcg (0.1 %) nasal spray Administer 1 spray into each nostril daily 04/27/2022 fluticasone propionate (FLONASE) 50 mcg/actuation nasal spray Administer 2 sprays into each nostril daily added in this encounter Care Teams Audio Visual Project Manager Relationship Specialty Start Date End Date Rinku Beasley MD [address] [place], [place] [id number] PCP - General 09/08/19 documented as of this encounter
--- OUTSIDE RECORDS SUMMARY | 2024-10-06 05:35 | XMS_ITS | Encounter Summary ---
Author Organization [facility] Address [address] [place] [address] Care Team Providers Care Refinery Operator Alkylation Name Role Phone Rinku Beasley MD Primary Care Provider + Encounter Details Date Type Department Care Team (Late st Contact Info) Description 05/12/2024 External Device Data STL ABSTRACTION Provider, Abstract [...] st Contact Info) Description 11/09/2024 1:15 PM CONSTRUCTION PLUMBER Office Visit [facility] Oncology and Hematology [place] [address] [place] [address] [facility] [address] [place] [address] Jacinto Arzate MD [address] [facility] [address] [place] [address] documented as of this encounter Visit Diagnoses Not on filedocumented in this encounter Care Teams Refinery Operator Alkylation Relationship Specialty Start Date End Date Rinku Beasley MD [address] [place] [address] PCP - General Internal Medicine 05/22/23 documented as of this encounter
--- OUTSIDE RECORDS SUMMARY | 2024-10-06 05:35 | XMS_ITS | Encounter Summary ---
Author Organization [facility] Address [address] [place] [address] Care Team Providers Care Collator Name Role Phone Rinku Beasley MD Primary Care Provider [phone] Reason for Visit * Reason Comments Follow-up 6 mo follow up on a- fib, mild MR Encounter Details Date Type Department Care Team (Late st Contact Info) Description 08/10/2024 10:45 AM THIRD RAIL INSTALLER Office Visit [facility] Cardiology at [address] [place] [address] Saul Tee MD [address] [facility] [address] [place] [address] Paroxysmal atrial fibrillation (CMS/HCC) (HCC) (Primary Dx) Social History Tobacco Use Types [...] on file Legal Sex Female 12:33 AM THIRD RAIL INSTALLER Gender Identity Not on file Sexual Orientation Not on file documented as of this encounter Last Filed Vital Signs Vital Sign Reading Time Taken Comments Blood Pressure 138/80 08/10/2024 10:25 AM THIRD RAIL INSTALLER Pulse 77 08/10/2024 10:25 AM THIRD RAIL INSTALLER Temperature - - Respiratory Rate - - Oxygen Saturation 94% 08/10/2024 10:25 AM THIRD RAIL INSTALLER Inhaled Oxygen Concentration - - Weight 99.3 kg (219 lb) 08/10/2024 10:25 AM THIRD RAIL INSTALLER Height 160 cm (5' 3 ) 08/10/2024 10:25 AM THIRD RAIL INSTALLER Body Mass Index 38.79 08/10/2024 10:25 AM THIRD RAIL INSTALLER documented in this encounter Progress Notes * Saul Tee MD - 08/10/2024 10:45 AM CST [facility] 08/10/2024 Lluvia Castaneda is a 74 y.o. female who presents for follow up [...] 06/07/2021 restoring sinus rhythm. Following cardioversion and scientologist of sinus rhythm she felt much better. [...] Also discussed th e option of electrophysiology consultation. Back in September of 2023 she had a recurrence of atrial fibrillation was placed on flecainide and electrically cardioverted. Unfortunately she reverted backto atrial fibrillation within a couple of weeks. She was referred to EP sap bw consultant at [facility] who loaded her with the Tikosyn and cardioverted her again down there. She returns to the office today for scheduled appointment. She is doing well otherwise in his pleased with the results of her arrhythmia management. She is taking dofetilide as mentioned above and she still has some episodes of atrial fibrillation but they are self-limited and not too problematic. She is following now with our practice as well as Dr. Rosas at [facility] REVIEW OF SYSTEMS General ROS: negative for [...] 5,000 mcg tablet, sublingual, Place under the tongue every other day,Disp: , Rfl: diphenhydrAMINE (BENADRYL) 25 mg capsule, Take 1 tablet/capsule (25 mg total) by mouth nightly as needed for itching, Disp: , Rfl: dofetilide (TIKOSYN) 125 mcg capsule, TAKE 1 CAPSULE (125 MCG TOTAL) BY MOUTH 2 (TWO) TIMES A DAY, Disp: 180 capsule, Rfl: 2 Eliquis 5 mg tablet, [...] mg total) by mouth daily, Disp:, Rfl: jbisrfprxjza-isrjdprl-upbfbt tablet, Take 1 tablet by mouth daily, Disp: , Rfl: omeprazole (PriLOSEC) 40 mg capsule, Take 1 capsule (40 mg total) by mouth daily, Disp: , Rfl: spironolactone (ALDACTONE) 50 mg tablet, Take 1 tablet (50 mg total) by mouth daily, Disp: , Rfl: TURMERIC ORAL, Take 500 mg by mouth daily (Patient not taking: Reported on 08/10/2024), Disp: , Rfl: LABS AND OTHER DIAGNOSTIC [...] for component: LABALBU PHYSICAL EXAM Vitals BP 138/80 (BP Location: Right arm, Patient Position: Sitting) Pulse 77 Ht 160 cm (5' 3 ) Wt 99.3 kg (219 lb) SpO2 94% BMI 38.79 kg/m?? Physical Examination: General appearance - alert, [...] 6 months or p.r.n. Saul Tee MD D RAIL INSTALLER documented in this encounter Plan of Treatment Not on file documented as of this encounter Visit Diagnoses Diagnosis Paroxysmal atrial fibrillation (CMS/HCC) (HCC)- Primary Atrial fibrillation documented in this encounter Care Teams Collator Relationship Specialty Start Date End Date Rinku Beasley MD [address] [place], [place] [id number] PCP - General 09/08/19 documented as of this encounter
--- OUTSIDE RECORDS SUMMARY | 2024-10-06 05:35 | XMS_ITS | Encounter Summary ---
Author Organization [facility] SAIDA Agrawal [facility] Address [address] [place] [address] Care Team Providers Care Snapper On Name Role Phone Rinku Beasley MD Primary Care Provider + Encounter Details Date Type Department Care Team (Late st Contact Info) Description 08/13/2023 Orders Only [facility] Oncology and Hematology - [place] [address] [place] [address] [place] [address] [place] [address] [employer] [address] [place] [address] Social History Tobacco Use Types Packs/Day [...] st Contact Info) Description 11/09/2024 1:15 PM HEAD START ASSISTANT TEACHER Office Visit [facility] Oncology and Hematology - [place] [address] [place] [address] Jacinto Arzate MD [address] [facility] [employer] [address] [place] [address] documented as of this encounter Procedures Procedure Name Priority Date/Time Associated Diagnosis Comments COMPREHENSIVE METABOLIC PANEL Routine 08/12/2023 11:14 AM HEAD START ASSISTANT TEACHER documented in this encounter Results * COMPREHENSIVE METABOLIC PANEL (08/12/2023 11:14 AM HEAD START ASSISTANT TEACHER) Blood Jacinto Arzate MD CHEMISTRY ORDERABLES documented in this encounter Visit Diagnoses Not on filedocumented in this encounter Care Teams Snapper On Relationship Specialty Start Date End Date Rinku Beasley MD [address] [place] [address] PCP - General Internal Medicine 05/22/23 documented as of this encounter
--- OUTSIDE RECORDS SUMMARY | 2024-10-06 05:35 | XMS_ITS | Encounter Summary ---
Author Organization [facility] Address [address] [place] [address] Care Team Providers Care Driving School Instructor Name Role Phone Rinku Beasley MD Primary Care Provider + Encounter Details Date Type Department Care Team (Late st Contact Info) Description 10/20/2023 External Device Data STL ABSTRACTION Provider, Abstract [...] st Contact Info) Description 11/09/2024 1:15 PM TOUCH UP PAINTER HAND Office Visit [facility] Oncology and Hematology - [place] [address] [place] [address] [facility] [address] [place] [address] Jacinto Arzate MD [address] [facility] [address] [place] [address] documented as of this encounter Visit Diagnoses Not on filedocumented in this encounter Care Teams Driving School Instructor Relationship Specialty Start Date End Date Rinku Beasley MD [address] [place] [address] PCP - General Internal Medicine 05/22/23 documented as of this encounter
--- OUTSIDE RECORDS SUMMARY | 2024-10-06 05:35 | XMS_ITS | Encounter Summary ---
Author Organization [facility] Address [address] [place] [address] Phone Care Team Providers Care Wedding Decorator Name Role Phone Rinku Beasley MD Primary Care Provider + [phone] Reason for Referral * Cardiology (Routine) - Authorized Specialty Diagnoses / Procedures Referred By Contac t Referred To Contact Diagnoses Paroxysmal atrial fibrillation (CMS/HCC) (HCC) High risk medication use Procedures ECG 12 lead Idris Rosas MD PhD [address] [address] Phone: tel: fax: External Order Referral ID Status Reason Start Date Expiration Date V isits Requested Visits Authorized [id number] Authorized 08/17/2024 09/16/2025 1 1 GRINDER Encounter Details Date Type Department Care Team (Late st Contact Info) Description 08/17/2024 Orders Only [facility] Cardiology [address] [facility] Advanced Medicine [address]th [place] [address] [place] [address] Idris Rosas MD PhD [address] [facility] [address] [place] [address] Paroxysmal atrial fibrillation (CMS/HCC) (HCC) (Primary Dx); [...] on file Legal Sex Female 12:33 AM JIG GRINDER Gender Identity Not on file Sexual Orientation Not on file documented as of this encounter Plan of Treatment Scheduled Orders Name Type Priority Associated Diagnoses Orde r Schedule Basic metabolic panel Lab Routine Paroxysmal atrial fibrillation (CMS/HCC) (HCC) High risk medication use Expected: 08/18/2024, Expires: 08/17/2025 ECG 12 lead ECG Routine Paroxysmal atrial fibrillation (CMS/HCC) (HCC) High risk medication use Expected: 08/18/2024, Expires: 08/17/2025 documented as of this encounter Visit Diagnoses Diagnosis Paroxysmal atrial fibrillation (CMS/HCC) (HCC)- Primary Atrial fibrillation High risk medication use documented in this encounter Care Teams Wedding Decorator Relationship Specialty Start Date End Date Rinku Beasley MD [address] [place] [address] PCP - General 09/08/19 documented as of this encounter
--- OUTSIDE RECORDS SUMMARY | 2024-10-06 05:35 | XMS_ITS | Encounter Summary ---
Author Organization [facility] SAIDA Agrawal [facility] Address [address] [place] [address] Care Team Providers Care Adult Educator Name Role Phone Rinku Beasley MD Primary Care Provider + Encounter Details Date Type Department Care Team (Late st Contact Info) Description 08/12/2023 Orders Only [facility] Oncology and Hematology - [place] [address] [place] [address] [place] [address] [place] [address] [facility] [address] [place] [address] Social History Tobacco Use Types Packs/Day [...] st Contact Info) Description 11/09/2024 1:15 PM GREEN TIRE INSPECTOR Office Visit [facility] Oncology and Hematology - [place] [address] [place] [address] Jacinto Arzate MD [address] [facility] [address] [place] [address] documented as of this encounter Procedures Procedure Name Priority Date/Time Associated Diagnosis Comments CBC WITH DIFFERENTIAL Routine 08/12/2023 1:36 PM GREEN TIRE INSPECTOR documented in this encounter Results * CBC WITH DIFFERENTIAL (08/12/2023 1:36 PM GREEN TIRE INSPECTOR) Blood Jacinto Arzate MD HEMATOLOGY ORDERABLE S documented in this encounter Visit Diagnoses Not on filedocumented in this encounter Care Teams Adult Educator Relationship Specialty Start Date End Date Riknu Beasley MD [address] [place] [address] PCP - General Internal Medicine 05/22/23 documented as of this encounter
--- OUTSIDE RECORDS SUMMARY | 2024-10-06 05:35 | XMS_ITS | Referral Summary ---
Author Organization [facility] Address [address] [place] [address] Care Team Providers Care Ornamenter Name Role Phone Rinku Beasley MD Primary Care Provider Encounters Date Type Department Care Team Description 10/01/2024 Orders Only [facility] CARDIOLOGY Idris Rosas MD PhD 10/01/[address] Advanced Medicine 8th [place] [address] [place] [address] Idris Rosas MD PhD 08/24/2024 Orders Only [facility] Cardiology [facility] 8th [place] [address] [place] [address] Idris Rosas MD PhD Paroxysmal atrial fibrillation (CMS/HCC) (HCC) (Primary Dx); High risk medication use 08/17/2024 Orders Only [address] 8th [place] [address] [place] [address] Idris Rosas MD PhD Paroxysmal atrial fibrillation (CMS/HCC) (HCC) (Primary Dx); High risk medication use 08/17/2024 Telephone [place] [id number] [facility] Medicine 8th [place] [address] [place] [address] Cheryl Palma 08/10/2024 10:45 AM VALVE ASSEMBLER Office Visit [facility] Medical Group Cardiology at [address] [place] [address] Saul Tee MD Paroxysmal atrial fibrillation (CMS/HCC) (HCC) (Primary Dx) from Last 3 Months Allergies Active Allergy Reactions Criticality Noted Date [...] 11/19/2023 Assessment & Plan (11/21/2023 10:19 AM VALVE ASSEMBLER): History of symptomatic atrial fibrillation and rapid [...] -telemetry Assessment & Plan (11/20/2023 3:13 PM VALVE ASSEMBLER): History of symptomatic atrial fibrillation and rapid [...] 11/19/2023 Assessment & Plan (11/21/2023 10:19 AM VALVE ASSEMBLER): Normotensive on admission -continue home spironolactone 50 mg daily Assessment & Plan (11/20/2023 3:11 PM VALVE ASSEMBLER): Normotensive on admission -continue home spironolactone 50 mg daily Morbid obesity with BMI of 40.0-44.9, adult 10/25 TAZ on CPAP 07/18/2023 Assessment & Plan (11/21/2023 10:19 AM VALVE ASSEMBLER): -continue evening CPAP Assessment & Plan (11/19/2023 9:10 PM VALVE ASSEMBLER): -continue evening CPAP Nonrheumatic mitral valve regurgitation 07/18/20 23 Paroxysmal atrial fibrillation (CMS/HCC) 021 Class 2 obesity with body ma ss index (BMI) of 38.0 to 38.9 in adult 05/25/2021 Assessment & Plan (11/21/2023 10:19 AM VALVE ASSEMBLER): Contributing towards TAZ and AF -encouraged weight loss and caloric restriction Assessment & Plan (11/19/2023 9:11 PM VALVE ASSEMBLER): Contributing towards TAZ and AF -encouraged weight loss and caloric restriction Immunizations Name Administration Dates Next Due Influenza, Quadrivalent, Hig h Dose, Preservative Free, Intrr 11/22/2023(Deferred: Patient Refused) Social History Tobacco Use Types Packs/Day Years [...] on file Legal Sex Female 12:33 AM VALVE ASSEMBLER Gender Identity Not on file Sexual Orientation Not on file Last Filed Vital Signs Vital Sign Reading Time Taken Comments Blood Pressure 138/80 08/10/2024 10:25 AM VALVE ASSEMBLER Pulse 77 08/10/2024 10:25 AM VALVE ASSEMBLER Temperature 36.3 ??C (97.3 ??F) 11/22/2023 6:52 AM CS T Respiratory Rate 16 11/22/2023 8:50 AM VALVE ASSEMBLER Oxygen Saturation 94% 08/10/2024 10:25 AM VALVE ASSEMBLER Inhaled Oxygen Concentration - - Weight 99.3 kg (219 lb) 08/10/2024 10:25 AM VALVE ASSEMBLER Height 160 cm (5' 3 ) 08/10/2024 10:25 AM VALVE ASSEMBLER Body Mass Index 38.79 08/10/2024 10:25 AM VALVE ASSEMBLER Plan of Treatment Not on file Medical Devices Implanted Type Area Parking Regulation Enforcement Officer Device Identifier Shelf Expiration Date Model / Serial / Lot Nail Nail N/A: Back Description:L4-L5 Procedures Procedure Name Priority Date/Time Associated Diagnosis Comments CARDIOLOGY DOCUMENT SCAN 10/01/2024 8:07 AM VALVE ASSEMBLER from Last 3 Months Results * Cardiology Document Scan (10/01/2024 8:07 AM VALVE ASSEMBLER) Anatomical Region Laterality Modality Other Idris Rosas MD PhD CV CARDIAC SERVICES PROCEDURES Final Result from Last 3 Months Insurance MEDICARE AET SENIOR SUPPLEMENT MEDICARE MEDICARE AETNA SENIOR SUPPLEMENT Advance Directives For more information, please contact: [phone] * Full Code (Latest Code Status on File) Date Activated Date Inactivated Comments 11/19/2023 9:00 PM 11/22/2023 6:04 PM Care Teams Ornamenter Relationship Specialty Start Date End Date Rinku Beasley MD [address] [place] [address] PCP - General 09/08/19
--- OUTSIDE RECORDS SUMMARY | 2024-10-06 05:35 | XMS_ITS | Encounter Summary ---
Author Organization [facility] Address [address] [place] [address] Care Team Providers Care Second Cutter Name Role Phone Rinku Beasley MD Primary [...] st Contact Info) Description 11/09/2024 1:15 PM SOYBEAN GROWER Office Visit [facility] Oncology and Hematology - [place] [address] [place] [address] [facility] [address] [place] [address] Jacinto Arzate MD [address] [facility] [address] [place] [address] documented as of this encounter Visit Diagnoses Not on filedocumented in this encounter Care Teams Second Cutter Relationship Specialty Start Date End Date Rinku Beasley MD [address] [place] [address] PCP - General Internal Medicine 05/22/23 documented as of this encounter
--- OUTSIDE RECORDS SUMMARY | 2024-10-06 05:35 | XMS_ITS | Encounter Summary ---
Author Organization [facility] Healthcare Address [address] [place] [address] Care Team Providers Care Purchasing Agent Name Role Phone Rinku Beasley MD Primary Care Provider [phone] Encounter Details Date Type Department Care Team (Late st Contact Info) Description 10/29/2023 Telephone [facility] Medical Group Cardiology [address] [facility] [address] [address] Saul Tee MD [address] [facility] [address] [place] [address] Social History Tobacco Use Types [...] on file Legal Sex Female 12:33 AM MEALS ON WHEELS DRIVER Gender Identity Not on file Sexual Orientation Not on file documented as of this encounter Miscellaneous Notes * Telephone Encounter - Svitlana Green RN - 10/29/2023 3:21 PM CST New clearance placed on desk for CT to sign S ON WHEELS DRIVER * Telephone Encounter - Kady Simmons - 10/29/2023 2:29 PM CST Pt got a Cardiac Cath after the Cardiac Clearance was issued. They need a letter sent to them stating that pt is still fine to do Cataract Sx. S ON WHEELS DRIVER documented in this encounter Plan of Treatment Not on file documented as of this encounter Visit Diagnoses Not on filedocumented in this encounter Care Teams Purchasing Agent Relationship Specialty Start Date End Date Rinku Beasley MD [address] [place], [place] [phone] PCP - General 09/08/19 documented as of this encounter
--- OUTSIDE RECORDS SUMMARY | 2024-10-06 05:35 | XMS_ITS | Encounter Summary ---
Author Organization [facility] Address [address] [place] [address] Phone Care Team Providers Care Supervisor Dials Name Role Phone Rinku Beasley MD Primary Care Provider [phone] Encounter Details Date Type Department Care Team (Late st Contact Info) Description 06/03/2024 9:45 AM CDT Office Visit [facility] Cardiology [address] 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 Gender Identity Not on file Sexual Orientation Not on file documented as of this encounter Last Filed Vital Signs Vital Sign Reading Time Taken Comments Blood Pressure 138/87 06/03/2024 9:20 AM CDT Pulse 71 06/03/2024 9:20 AM CDT Temperature - - Respiratory Rate - - Oxygen Saturation 98% 06/03/2024 9:20 AM CDT Inhaled Oxygen Concentration - - Weight 105.3 kg (232 lb 3.2 oz) 06/03/2024 9:20 AM CDT Height 160 cm (5' 3 ) 06/03/2024 9:20 AM CDT Body Mass Index 41.13 06/03/2024 9:20 AM CDT documented in this encounter Progress Notes * Idris Rosas MD PhD - 06/03/2024 9:45 AM CDT Cardiac Electrophysiology Follow-Up I had the pleasure of seeing Lluvia Castaneda (1950) at the [facility] Cardiac Electrophysiology Service on 06/03/2024, in follow-up for atrial fibrillation. Ms. Castaneda is a 73 y.o. woman with a history of hypertension, obesity (BMI 40), and atrial fibrillation. She first presented with AF in the summer of 2020 with a sinus infection and was incidentally found to be in AF. She was treated with amiodaorne, metoprolol, and apixaban. Echocardiogram revealedan LV ejection fraction of 0.41. She underwent cardioversion on 07 June 2021 and felt better in sinus rhythm. Amiodarone was reduced to 200 mg every day, then to 100 mg every day, in part because of heart rates in the 40s. She had a recurrence of atrial fibrillation in fall. She was no longer taking amiodarone, but was continuing metoprolol and apixaban at that time. Sleep study led to a diagnosis fo TAZ and she began CPAP. Cardioversion was planned. Echocardiogram on 18 September 2023 revealed normal LV systolic function with an LV ejection fraction of 0.57. There was mild concentric LVH. The left atrium [...] has lightheadedness when the heart rate isslow. At her initial consultation visit in October 2023, she elected to undergo loading of dofetili de, which she completed 11/19-11/22/2023 and was ultimately discharged on a dose of 125mcg twice daily. Today, she presents for follow up and reports that she is doing well. She reports only one episode of recurrent atrial fibrllation, in March. She had typical symptoms when she awoke and confirmed AF with her Kardia device. It resolved after about an hour. This is a significant improvement and she ishappy with this regimen. She asked about prn dosed medicines. I discussed that I don't favor them (and never in combination with a standing antiarrhythmic drug). I hope instead to maintain normal rhythm most of the time rather than reacting to AF events when they occur. Past Medical History She has a past medical history of Arrhythmia and Hypertension. She has no past surgical history on file. Medications Outpatient Medications Prior to Visit Medication Sig Dispense Refill acetaminophen (TYLENOL) 325 mg tablet Take 500 mg by mouth daily azelastine (ASTELIN) 137 mcg (0.1 %) nasal spray Administer 1 spray into each nostril daily cranberry fruit extract (CRANBERRY ORAL) Take 500 mg by mouth daily cyanocobalamin, vitamin B-12, 5,000 mcg tablet, sublingual Place under the tongue diphenhydrAMINE (BENADRYL) 25 mg capsule Take 1 tablet/capsule (25 mg total) by mouth nightly as needed for itching dofetilide (TIKOSYN) 125 mcg capsule TAKE 1 CAPSULE (125 MCG TOTAL) BY MOUTH 2 (TWO) TIMES A DAY 180 capsule 2 Eliquis 5 mg tablet TAKE 1 TABLET (5 MG) BY ORAL ROUTE 2 TIMES PER DAY ferrous sulfate 325 mg (65 mg of elemental iron) tablet Take 1 tablet (325 mg total) by mouth dailywith breakfast fluticasone propionate (FLONASE) 50 mcg/actuation nasal spray Administer 2 sprays into each nostrildaily metoprolol XL (TOPROL-XL) 100 mg 24 hr tablet Take 0.5 tablets (50 mg total) by mouth daily qqyagagjifwr-xjwiwqkl-bpvzdg tablet Take 1 tablet by mouth daily omeprazole (PriLOSEC) 40 mg capsule Take 1 capsule (40 mg total) by mouth daily spironolactone (ALDACTONE) 50 mg tablet Take 1 tablet (50 mg total) by mouth daily acidophilus-pectin, citrus 100 million cell-10 mg capsule Take by mouth (Patient not taking: Reported on 11/28/2023) cholecalciferol (VITAMIN D-3) 06984 unit capsule Take 1 Units by mouth daily (Patient not taking: Reported on 11/28/2023) TURMERIC ORAL Take 500 mg by mouth daily (Patient not taking: Reported on 02/05/2024) No facility-administered medications prior to visit. Allergies Hydrocodone-acetaminophen and Red dye Family History Her family history includes No Known Problems in her father and mother. Social History Ms. Castaneda reports that she has never smoked. She has never used smokeless tobacco. She reports thatshe does not use drugs. Patient denies consuming alcoholic drinks. Physical Examination On physical examination, the patient is a well appearing woman in no acute distress. BP 138/87 Pulse 71 Ht 160 cm (5' 3 ) Wt 105.3 kg (232 lb 3.2 oz) SpO2 98% BMI 41.13 kg/m?? Head and neck were within normal limits. There was no scleral icterus. Extraocular movements were intact. The oral mucosa was moist. The neck was supple with no thyromegaly or mass. There was no cervical lymphadenopathy. Chest was clear to auscultation bilaterally. On cardiovascular examination, there was no elevation of the the jugular venous pressure appreciated. There was a regular rhythm with no murmur rub or gallop. The abdomen was soft, not tender. There was no organomegaly or mass. Bowel sounds were present. The extremities were without edema. The skin was warm and dry without rash. The affect was normal. Diagnostic Data ECG: ECG today revealed sinus rhythm with normal axis and normal intervals. LABS: Chemistry Lab Results Component Value Date SODIUM 140 11/22/2023 POTASSIUM 4.3 11/22/2023 CHLORIDE 106 11/22/2023 CO2 25 11/22/2023 ANIONGAP 9 11/22/2023 BUNSER 19 11/22/2023 CREATININE 1.09 11/22/2023 GLUCOSE 93 11/22/2023 CALCIUM 9.3 11/22/2023 BILITOT 0.2 11/19/2023 ALBUMIN 4.2 11/19/2023 GFRNAA 54 (L) 11/22/2023 ALKPHOS 57 11/19/2023 AST 20 11/19/2023 ALT 12 11/19/2023 MAGNESIUM 2.2 11/19/2023 estimated creatinine clearance is 39.2 mL/min (by C-G 65 yr and older- minimum SCr 0.8 based on SCrof 1.09 mg/dL). Lab Results Component Value Date TSH 0.81 11/19/2023 Lab Results Component Value Date WBC 10.1 (H) 11/22/2023 HGB 11.4 (L) 11/22/2023 HCT 35.1 (L) 11/22/2023 MCV 88.9 11/22/2023 LABPLAT 381 11/22/2023 Impression I've made no recommendation for change in her medical regimen. We will draw a BMP today to assess renal function. We will plan to follow-up in six months' time, provided no new concerns arise in the interim. It's a pleasure to see Ms. Castaneda again. I'm grateful for the opportunity to participate in her care. Marixa Osman M.D. graphic design specialist [facility] in [place] 06/03/2024 documented in this encounter Plan of Treatment Not on file documented as of this encounter Procedures Procedure Name Priority Date/Time Associated Diagnosis Comments ECG 12-LEAD Routine 06/03/2024 9:25 AM CDT Paroxysmal atrial fibrillation (CMS/HCC) (HCC) documented in this encounter Results * Basic metabolic panel (06/03/2024 10:08 AM CDT) Glucose 95 64 - 99 mg/dL [facility] Comment: NONFASTING GLUCOSE RANGE = 64-199 mg/dL [...] 8 AM CDT 06/03/2024 11:00 AM CDT Idris Rosas MD PhD LAB BLOOD ORDERABLE S Final Result [facility] * ECG 12 lead (06/03/2024 9:25 AM CDT) Idris Rosas MD PhD ECG ORDERABLES [place] Result - Final documented in this encounter Visit Diagnoses Diagnosis Paroxysmal atrial fibrillation (CMS/HCC) (HCC)- Primary Atrial fibrillation High risk medication use documented in this encounter Discontinued Medications Medication Sig Discontinue Reason Start Date End Da te acidophilus-pectin, citrus 100 million cell-10 mg capsule Take by mouth Other 06/03/2024 cholecalciferol (VITAMIN D-3) 87149 unit capsule Take 1 Units by mouth daily Other 06/03/2024 documented as of this encounter Care Teams Supervisor Dials Relationship Specialty Start Date End Date Rinku Beasley MD [address] [place] [id number] PCP - General 09/08/19 documented as of this encounter
--- OUTSIDE RECORDS SUMMARY | 2024-10-06 05:35 | XMS_ITS | Encounter Summary ---
Author Organization [facility] SAIDA Agrawal [facility] Address [address] [place] [address] Care Team Providers Care Fish Bait Picker Name Role Phone Rinku Beasley MD Primary Care Provider + Encounter Details Date Type Department Care Team (Late st Contact Info) Description 12/18/2023 Orders Only [facility] Oncology and Hematology - [place] [address] [place] [address] Jacinto Arzate MD [address] [place] [address] [employer] [address] [place] [address] Social History Tobacco Use Types Packs/Day [...] st Contact Info) Description 11/09/2024 1:15 PM CLINICAL GENETICIST Office Visit [facility] Oncology and Hematology - [place] [address] [place] [address] Jacnito Arzate MD [address] [facility] [address] [place] [address] documented as of this encounter Procedures Procedure Name Priority Date/Time Associated Diagnosis Comments IRON, TIBC, AND PERCENT SATURATION Routine 12/17/2023 2:44 PM CDT documented in this encounter Results * IRON, TIBC, AND PERCENT SATURATION (12/17/2023 2:44 PM CDT) Blood Jacinto Arzate MD CHEMISTRY ORDERABLES documented in this encounter Visit Diagnoses Not on filedocumented in this encounter Care Teams Fish Bait Picker Relationship Specialty Start Date End Date Rinku Beasley MD [address] [place] [phone] PCP - General Internal Medicine 05/22/23 documented as of this encounter
--- OUTSIDE RECORDS SUMMARY | 2024-10-06 05:35 | XMS_ITS | Encounter Summary ---
Author Organization [facility] Address [address] [place] [address] Care Team Providers Care Plastic Sheets Supervisor Name Role Phone Rinku Beasley MD [...] st Contact Info) Description 11/09/2024 1:15 PM GAS COMPRESSOR TURBINE OPERATOR Office Visit [facility] Oncology and Hematology - [place] [address] [place] [address] [facility] [address] [place] [address] Jacinto Arzate MD [address] [facility] [address] [place] [address] documented as of this encounter Visit Diagnoses Not on filedocumented in this encounter Care Teams Plastic Sheets Supervisor Relationship Specialty Start Date End Date Rinku Beasley MD [address] [place] [address] PCP - General Internal Medicine 05/22/23 documented as of this encounter
--- OUTSIDE RECORDS SUMMARY | 2024-10-06 05:35 | XMS_ITS | Encounter Summary ---
Author Organization [facility] Healthcare Address [address] [place] [address] Care Team Providers Care Lapping Machine Operator Name Role Phone Rinku Beasley MD Primary Care Provider [phone] Reason for Visit * Reason Comments Bradycardia Encounter Details Date Type Department Care Team (Late st Contact Info) Description 10/24/2023 3:30 PM OYSTER WASHER Office Visit [facility] [address] [place] [id number] Tara Thurman NP [address] [place] [address] Bradycardia (Primary Dx); Paroxysmal atrial fibrillation (CMS/HCC) (HCC); History of cardioversion Social History Tobacco Use Types Packs/Day Years [...] on file Legal Sex Female 12:33 AM OYSTER WASHER Gender Identity Not on file Sexual Orientation Not on file documented as of this encounter Last Filed Vital Signs Vital Sign Reading Time Taken Comments Blood Pressure 130/70 10/24/2023 2:29 PM OYSTER WASHER Pulse 47 10/24/2023 2:29 PM OYSTER WASHER Temperature - - Respiratory Rate - - Oxygen Saturation 97% 10/24/2023 2:29 PM OYSTER WASHER Inhaled Oxygen Concentration - - Weight 102.1 kg (225 lb) 10/24/2023 2:29 PM OYSTER WASHER Height 160 cm (5' 3 ) 10/24/2023 2:29 PM OYSTER WASHER Body Mass Index 39.86 10/24/2023 2:29 PM OYSTER WASHER documented in this encounter Progress Notes * Tara Thurman NP - 10/24/2023 3:30 PM CST Images from the original note were not included. [facility] [address] [place] [address] Date of Visit: 10/24/2023 Patient ID: Lluvia Castaneda [id number] Chief Complaint Patient presents with Bradycardia Lluvia Castaneda is a 73 y.o. female [...] 06/07/2021 restoring sinus rhythm. Following cardioversion and latter day of sinus rhythm she felt much better. [...] the mid 60's. 10/24/2023 office visit with [employer]IVER: She is s/p cardioversion 4 days ago. [...] flecainide ever since Saturday night. 12-lead ECG performed in the office today was independently interpreted by me and showed sinus bradycardia, rate 48 beats per minute, QTC 431 MS Records that I personally reviewed on the day of this visit include: (the interpretation is outlined in the HPI above) 10/08/[address] Tee, 10/23/2023 procedure note, today's ECG. I have also reviewed: allergies, current medications, past family history, past medical history, past social history, past surgical history and problem list. Medical History: Past Medical History: Diagnosis Date Hypertension No past surgical history on file. Social History Tobacco Use Smoking Status Never Smokeless Tobacco Never Social History Tobacco Use Smoking status: Never Smokeless tobacco: Never Substance and Sexual Activity Drug use: Never Sexual activity: None Alcohol Use: Not At Risk (11/17/2019) AUDIT-C Frequency of Alcohol Consumption: Never Average Number of Drinks: Not on file Frequency of Binge Drinking: Not on file No family history on file. Review of Systems Constitutional: Positive for malaise/fatigue. Negative for weight gain and weight loss. Cardiovascular: Negative for chest pain, leg swelling, near-syncope, orthopnea, palpitations, paroxysmal nocturnal dyspnea and syncope. Respiratory: Positive for shortness of breath. Negative for cough and sleep disturbances due to breathing. Hematologic/Lymphatic: Negative for bleeding problem. Does not bruise/bleed easily. Neurological: Positive for focal weakness (Legs felt slightly weak when walking) and headaches. Negative for dizziness and light-headedness. Vital Signs: BP 130/70 (BP Location: Left arm, Patient Position: Sitting) Pulse (!) 47 Ht 160 cm (5' 3 ) Wt 102.1 kg (225 lb) SpO2 97% BMI 39.86 kg/m?? Physical Exam Constitutional: General: She is not in acute distress. Appearance: She is well-developed. She is obese. HENT: Head: Normocephalic and atraumatic. Eyes: General: No scleral icterus. Conjunctiva/sclera: Conjunctivae normal. Neck: Vascular: No JVD. Trachea: No tracheal deviation. Cardiovascular: Rate and Rhythm: Regular rhythm. Bradycardia present. Heart sounds: Normal heart sounds. No murmur heard. Pulmonary: Effort: Pulmonary effort is normal. No [...] 2 TIMES PER DAY, Disp: , Rfl: flecainide (TAMBOCOR) 100 mg tablet, Take 1 tablet (100 mg total) by mouth 2 (two) times a day, Disp: , Rfl: fluticasone propionate (FLONASE) 50 mcg/actuation nasal spray, Administer 2 sprays into each nostril daily, Disp: , Rfl: metoprolol tartrate (LOPRESSOR) 50 mg immediate release tablet, Take 1 tablet (50 mg total) by mouth 2 (two) times a day, Disp: , Rfl: wbmzvqttmkcg-rsnlcrbq-bitqno tablet, Take 1 tablet by mouth daily, Disp: , Rfl: omeprazole (PriLOSEC) 40 mg capsule, Take 1 capsule (40 mg total) by mouth daily, Disp: , Rfl: spironolactone (ALDACTONE) 50 mg tablet, Take 1 tablet (50 mg total) by mouth daily, Disp: , Rfl: TURMERIC ORAL, Take by mouth, Disp: , Rfl: cholecalciferol (VITAMIN D-3) 58159 unit capsule, Take 1 Units by mouth daily (Patient not taking: Reported on 09/17/2023), Disp: , Rfl: No results found for: POTASSIUM , BUNSER , CREATININE , CHOL , TRIG , LDL , LDLCALC , HDL No results found for: WBC , HGB , HCT , MCV , PLT No results found for this or any previous visit (from the past 4 hour(s)). Lab Results Component Value Date POCCHOL 214 10/08/2023 POCHDL 57 10/08/2023 POCTRIG 260 10/08/2023 POCLDL 105 10/08/2023 POCNONHDL 157 10/08/2023 POCCHLPL 214 10/08/2023 Assessment: Diagnoses and all orders for this visit: Bradycardia (Primary) - ECG 12 lead Paroxysmal atrial fibrillation (CMS/HCC) ([facility]) History of cardioversion Plan/Recommendations: She is having mildly symptomatic bradycardia s/p cardioversion with initiation of flecainide. Reduce metoprolol tartrate to 50 mg b.i.d.. Continue flecainide 100 mg b.i.d.. Return to the office for repeat ECG in 1 week. Contact the office sooner if symptoms do not improve or worsen. I explained theexpected resting heart rate while on flecainide and how it should increase with activity. Return to the office to see Dr. Tee in 3 months. Call us sooner with questions or concerns. 10/24/2023 ANAY Gatica- Nurse Practitioner with [facility] Cardiology This note is dictated and transcribed using [email or web address] Direct Software. Belt Brander variancesmay occur. Despite proofreading, typographical errors may occur. ER WASHER documented in this encounter Plan of Treatment Not on file documented as of this encounter Procedures Procedure Name Priority Date/Time Associated Diagnosis Comments ECG 12-LEAD Routine 10/24/2023 Bradycardia documented in this encounter Results * ECG 12 lead (10/24/2023) us Tara Thurman NP ECG ORDERABLES Final Res ult documented in this encounter Visit Diagnoses Diagnosis Bradycardia- Primary Other specified cardiac dysrhythmias Paroxysmal atrial fibrillation (CMS/HCC) (HCC) Atrial fibrillation History of cardioversion documented in this encounter Discontinued Medications Medication Sig Discontinue Reason Start Date End Da te amiodarone (PACERONE) 200 mg tabletIndications:Paroxys mal atrial fibrillation (CMS/HCC) (HCC) Take 1 tablet (200 mg total) by mouth daily Alternate therapy 07/18/2023 10/24/2023 losartan (COZAAR) 50 mg tablet Take 0.5 tablets (25 mg total) by mouth daily Alternate therapy 03/22/2021 10/24/2023 documented as of this encounter Historical Medications * This list may reflect changes made after this encounter. flecainide (TAMBOCOR) 100 mg tablet Take 1 tablet (100 mg total) by mouth 2 (two) times a day 10/21/2023 10/31/2023 added in this encounter Care Teams Lapping Machine Operator Relationship Specialty Start Date End Date Rinku Beasley MD [address] [place] [address] PCP - General 09/08/19 documented as of this encounter
--- OUTSIDE RECORDS SUMMARY | 2024-10-06 05:35 | XMS_ITS | Encounter Summary ---
Author Organization [facility] Healthcare Address [address] [place] [address] Care Team Providers Care Plaster Model And Mold Maker Name Role Phone Rinku Beasley MD Primary Care Provider + [phone] Reason for Visit * Auth/Cert (Routine) Specialty Diagnoses / Procedures Referred By Contac t Referred To Contact Diagnoses Atrial fibrillation (CMS/HCC) (HCC) DRUG LOAD Procedures NA Referral ID Status Reason Start Date Expiration Date Visits Re quested Visits Authorized [id number] 1 1 Encounter Details Date Type Department Care Team (Latest Contact Info) Description 11/19/2023 8:37 PM QUANTITATIVE MANAGER - 11/22/2023 2:03 PM QUANTITATIVE MANAGER Hospital Encounter [address] [id number] Idris Rosas MD PhD [address] [address] Leonides Soler MD [address] [address] Atrial fibrillation, unspecified type (HCC) (Primary Dx) Discharge Disposition: Discharge to home or self care Social History Tobacco Use Types Packs/Day Years [...] you are drinking? Patient does not drink 03/01/202 4 Q3: How often do you have si [...] on file Legal Sex Female 12:33 AM QUANTITATIVE MANAGER Gender Identity Not on file Sexual Orientation Not on file documented as of this encounter Last Filed Vital Signs Vital Sign Reading Time Taken Comments Blood Pressure 119/78 11/22/2023 8:50 AM QUANTITATIVE MANAGER Pulse 55 11/22/2023 8:50 AM QUANTITATIVE MANAGER Temperature 36.3 ??C (97.3 ??F) 11/22/2023 6:52 AM CS T Respiratory Rate 16 11/22/2023 8:50 AM QUANTITATIVE MANAGER Oxygen Saturation 98% 11/22/2023 8:50 AM QUANTITATIVE MANAGER Inhaled Oxygen Concentration - - Weight 100 kg (220 lb 6.4 oz) 11/22/2023 4:23 AM QUANTITATIVE MANAGER Height 160 cm (5' 3 ) 11/19/2023 8:50 PM QUANTITATIVE MANAGER Body Mass Index 39.04 11/19/2023 8:50 PM QUANTITATIVE MANAGER documented in this encounter Discharge Summaries * Tamika Raman, DAYAN - 11/22/2023 12:20 PM CST Inpatient Discharge Summary BRIEF OVERVIEW Admitting Provider: Cristela Wharton MD Discharge Provider: Idris Rosas MD PhD Primary Care Physician at Discharge: Rinku Beasley MD [phone] Admission Date: 11/19/2023 Discharge Date: 11/22/2023 Admission Location: [facility] Problems/Diagnoses: Principal Problem: Atrial fibrillation (CMS/HCC) (HCC) Active Problems: Class 2 obesity with body mass index (BMI) of 38.0 to 38.9 in adult TAZ on CPAP Essential hypertension Resolved Problems: No [...] condition with follow up arranged with her roll sheeting cutter. She was given information for Cost plus drugs website as Tikosyn cost for her was $86. Active Issues Requiring Follow-up: Test Results Pending at Discharge: Pending Labs Order Current Status Magnesium In process Protime-INR In process Thyroid Function [place] In process Operative Procedures Performed: Procedure(s): CARDIOVERSION 68747 Other Procedures: Pertinent Test Results: Discharge Details [...] nostril daily Commonly known as: ASTELIN cholecalciferol 37498 unit capsule Take 1 Units by mouth [...] TOPROL-XL Start taking on: November 23, 2023 uwbmsvcpijvj-xxioqgrb-hxrctn tablet Take 1 tablet by mouth daily [...] Cristela Wharton MD at 11/22/2023 2:33 PM QUANTITATIVE MANAGER TITATIVE MANAGER TITATIVE MANAGER documented in this encounter Discharge Instructions * Discharge Instructions* Tamika Raman DNP - 11/22/2023 8:11 AM QUANTITATIVE MANAGER Lamsa Create an account and follow the instructions TITATIVE MANAGER TITATIVE MANAGER TITATIVE MANAGER * Discharge Instr - Other Orders* Sarai Young RN - 11/22/2023 1:07 PM QUANTITATIVE MANAGER TITATIVE MANAGER TITATIVE MANAGER documented in this encounter Medications at Time [...] Administer 2 sprays into each nostril daily multivitamin-mineral surveying technician als-lutein tablet Take 1 tablet by mouth daily omeprazole (PriLOSEC) 40 mg capsule Take 1 capsule (40 mg total) by mouth daily spironolactone (ALDACTONE) 50 mg tablet Take 1 tablet (50 mg total) by mouth daily 04/23/2022 TURMERIC ORAL Take 500 mg by mouth daily acidophilus-pectin , citrus 100 million cell-10 mg capsule Take by mouth 4 cholecalciferol (VITAMIN D-3) 91014 unit capsule Take 1 Units by mouth daily 4 dofetilide (TIKOSYN) 125 mcg capsuleIndications :Cardioversion of Atrial Fibrillation Take 1 capsule (125 mcg total) by mouth 2 (two) times a day 60 capsule 2 11/22/2023 4 metoprolol XL (TOPROL-XL) 100 mg 24 hr tablet Take 1 tablet (100 mg total) by mouth daily 30 tablet 11/23/2023 4 documented as of this encounter [...] discharge needs arise, please contact the covering case assembler. Sarai ESTRELLA pai gow dealer TITATIVE MANAGER TITATIVE MANAGER TITATIVE MANAGER * Sarai Young RN - 11/22/2023 1:04 [...] uploaded into the patient???s chart. Sarai ESTRELLA pai gow dealer TITATIVE MANAGER * Sukhjinder Barney NP - 11/21/2023 10:20 [...] or family members viewing this note through [employer] programs: This note was written as a [...] longer be involved in your care. ALAN Dubois-BC Cosigned by Cristela Wharton MD at 11/21/2023 12:07 PM QUANTITATIVE MANAGER TITATIVE MANAGER TITATIVE MANAGER Associated attestation - Cristela Wharton MD - 11/21/2023 12:07 PM QUANTITATIVE MANAGER Attending Documentation I personally interviewed and examined [...] dosing Discussed management of afib with Dr. Muhammad The patient is being intensively monitored for drug toxicity from dofetilide. Cristela Wharton MD 11/21/2023 12:01 PM * Saul Tucker - 11/20/2023 3:22 PM CST 11/20/2023 Saul Tucker MDiv 11/20/23 1350 Time Spent Start Time 1350 Stop Time 1415 Time Calculation (min) 25 min Patient Spiritual Assessment Spirituality Assessed Yes Mu-Ism Affiliation Lutheran;Sikh Active in Voodoo No (looking for Lutheran baptist - was Sikh) Clinical Encounter Type Visited With Patient Response Type Routine visit Routine Visit Introduction Reason for visit Support Outcomes and Progress Aligning care with patient's values Achieved Preserve dignity and respect Achieved Demonstrating care and respect Achieved Kely affirmation Achieved Establish rapport and connectedness Achieved Interventions Interventions Active listening;Explore kely and values;Offer emotional support;Offer spiritual/cheondoism support;Prayer Plan Future Plan Spiritual Care services available as needed TITATIVE MANAGER * Sukhjinder Barney NP - 11/20/2023 3:11 [...] (MSEC) 328 ms QTc 449 ms R [place] -1 degrees [place] 26 degrees Diagnosis Atrial fibrillation/flutter with rapid ventricular response Nonspecific ST abnormality Abnormal ECG No previous ECGs available Confirmed by BRITTNI COLE M.D ([id number]) on 11/20/2023 1:22:10 PM aPTT Collection Time: [...] 54 (L) >=60 mL/min/1.73 m2 Thyroid Function [place] Collection Time: 11/19/23 9:59 PM Result Value [...] or family members viewing this note through [employer] programs: This note was written as a [...] Leonides Soler MD at 11/23/2023 6:48 AM QUANTITATIVE MANAGER TITATIVE MANAGER TITATIVE MANAGER documented in this encounter H&P Notes * Hari Wen MD PhD - 11/22/2023 7:24 AM CST I have reviewed the H&P, examined the patient, and endorse the findings as written. Plan of Care : Based on the above findings, I consider Lluvia Castaneda to be an acceptable risk for :Procedure(s): CARDIOVERSION 62350 TITATIVE MANAGER Source Note - Loyda Azul MD PhD - 11/19/2023 9:01 PM QUANTITATIVE MANAGER CREU Cardiology History and Physical - Electrophysiology [...] (0.1 %) nasal spray cholecalciferol (VITAMIN D-3) 12278 unit capsule cranberry fruit extract (CRANBERRY ORAL) diphenhydrAMINE (BENADRYL) 25 mg capsule Eliquis 5 mg tablet fluticasone propionate (FLONASE) 50 mcg/actuation nasal spray metoprolol XL (TOPROL-XL) 50 mg extended release tablet pvkbknhsjmsz-edvxogrf-dgxxuw tablet omeprazole (PriLOSEC) 40 mg capsule spironolactone [...] Leonides Soler MD at 11/20/2023 6:29 PM QUANTITATIVE MANAGER TITATIVE MANAGER TITATIVE MANAGER * Loyda Azul MD PhD - 11/19/2023 [...] (0.1 %) nasal spray cholecalciferol (VITAMIN D-3) 49498 unit capsule cranberry fruit extract (CRANBERRY ORAL) diphenhydrAMINE (BENADRYL) 25 mg capsule Eliquis 5 mg tablet fluticasone propionate (FLONASE) 50 mcg/actuation nasal spray metoprolol XL (TOPROL-XL) 50 mg extended release tablet juavixbdwvwm-auhphmov-zsetxp tablet omeprazole (PriLOSEC) 40 mg capsule spironolactone [...] Leonides Soler MD at 11/20/2023 6:29 PM QUANTITATIVE MANAGER TITATIVE MANAGER TITATIVE MANAGER Associated attestation - Leonides Soler MD - 11/20/2023 6:29 PM QUANTITATIVE MANAGER Attending Documentation I have seen and examined [...] become part of the patient???s medical record. TITATIVE MANAGER * Plan of Care - Tiana Camp [...] hours post dose. AVS reviewed with patient. TITATIVE MANAGER * Perioperative Nursing Note - Aleksandra Franco RN - 11/22/2023 8:31 AM QUANTITATIVE MANAGER Pt s/p Cardioversion. Pt is A&Ox4, VS stable. Pt is returning to 11,200, report called to Nhi. Pt transported via wheelchair with transporter. TITATIVE MANAGER * Post-Procedure Note - Hari Wen MD PhD - 11/22/2023 7:57 AM QUANTITATIVE MANAGER CARDIOVERSION 35398 PRE-OP DIAGNOSIS: Atrial fibrillation CLOTH DESIZING RANGE OPERATOR CHIEF: Hari Wen MD PhD. REFERRING MD: Jenaro Rosas MD [facility]; Frances Soler MD; Rinku Beasley MD HISTORY: [...] personally supervise or perform the entire procedure. TITATIVE MANAGER * Plan of Care - Santo Saavedra [...] ordered and continue to monitor the patient. TITATIVE MANAGER * Plan of Care - Sandy Mckeon [...] health care needs will improve Outcome: Progressing TITATIVE MANAGER * Plan of Care - Ko Mejia [...] tolerate increased activity will improve Outcome: Progressing TITATIVE MANAGER * Plan of Care - Sarai Young RN - 11/21/2023 4:11 PM CST Per Medical Chart/Rounds/IDR: not medcially ready for discharge. Drug load. CV tomorrow ADD: 11/21 Plan & referrals made/in place: None noted at this time. CM to follow for d/c planning and referrals as needed. Support following discharge: lives alone. SUKHI Castaneda (dtr) [phone] Transportation: family F/U Appointments: tbd Patient's Identified Problem/Goal Problem: Ensure acute medical needs are met and that patient has a safe discharge plan. Goal: Secure a discharge plan that patient/family are agreeable with and ensure patient has continuum of care. Patient and/or family are agreeable with plan. senior product manager will continue to follow and assist with discharge planning as needed. If any further discharge needs arise, please contact the covering case assembler. Sarai Young RNC pai gow dealer TITATIVE MANAGER * Assessment & Plan Note - Sukhjinder Barney NP - 11/21/2023 10:19 AM QUANTITATIVE MANAGER Associated Problem(s): TAZ on CPAP -continue evening CPAP TITATIVE MANAGER * Assessment & Plan Note - Sukhjinder Barney NP - 11/21/2023 10:19 AM QUANTITATIVE MANAGER Associated Problem(s): Essential hypertension Normotensive on admission -continue home spironolactone 50 mg daily TITATIVE MANAGER * Assessment & Plan Note - Sukhjinder Barney NP - 11/21/2023 10:19 AM QUANTITATIVE MANAGER Associated Problem(s): Class 2 obesity with body mass index (BMI) of 38.0 to 38.9 in adult Contributing towards TAZ and AF -encouraged weight loss and caloric restriction TITATIVE MANAGER * Assessment & Plan Note - Sukhjinder Barney NP - 11/21/2023 10:19 AM QUANTITATIVE MANAGER Associated Problem(s): Atrial fibrillation (CMS/HCC) (HCC) History [...] Eliquis 5 mg BID -TSH WNL -telemetry TITATIVE MANAGER * Plan of Care - Lillian Wooten RN - 11/21/2023 5:43 AM QUANTITATIVE MANAGER Goals: Clinical Goals for the Shift: Keep [...] tolerate increased activity will improve Outcome: Progressing TITATIVE MANAGER * Plan of Care - Criss Canas [...] ordered and continue to monitor the patient. TITATIVE MANAGER * Initial Assessments - Sarai Young RN - 11/20/2023 7:56 AM QUANTITATIVE MANAGER CM Initial Assessment Interview Note Information Obtained From: Patient (11/20/23 9021) Admission Source: home - direct admission Impression: 73 yo F Hx Afib, HTN, obesity - admitted for Tikosyn drug load. Plan Includes: Case Management will follow for Medical Updates and discharge planning and referrals. CM will collaborate with SW and clinical team regarding post hospitalization needs for home health custodial/therapy, SNF/Rehab/LTAC, DME, PCP follow up and other resources as indicated. Plan to return home with support of family. Primary Source of Transportation: Does the patient need discharge transport arranged?: No (family) (11/20/23 3978) Health Insurance Coverage: Medicare/Supp Prescription Coverage: yes Pharmacy: verified [facility]/pharmacy #[id number] [address] Primary Care Provider: verified Rinku Beasley MD Prior to Admission: Functional Status: Independent with ADLs Primary Caregiver: Self Support System: Children (Natividad Castaneda (dtr) [phone]) Home Care Services: No Outpatient Services: No [...] Collaboration with patient, MD, direct care nurse, Plant Tech, and other members of the health care team to assure needed interventions completed. 2. Return patient to optimal level of self-care post discharge. 3. Information [employer] will follow for Discharge Planning - interventions as needed 4. Anticipated level of care at discharge 5. Planned Discharge Disposition Based on a comprehensive family assessment, assistance with instrumental activities of daily livingafter discharge will be provided by Natividad Castaneda (dtr) [phone] Through the course of our work I [...] in agreement with the aftercare plan. Sarai ESTRELLA pai gow dealer TITATIVE MANAGER * Plan of Care - Rahel Cardoza, CAUSTIC STRENGTH INSPECTOR - 11/20/2023 2:21 AM CST Patient is currently wearing their home cpap overnight for TAZ. Plan :For patient to continue to wear their home cpap overnight for TAZ. TITATIVE MANAGER * Assessment & Plan Note - Loyda Azul MD PhD - 11/19/2023 9:12 PM QUANTITATIVE MANAGER Associated Problem(s): Essential hypertension Normotensive on admission -continue home spironolactone 50 mg daily TITATIVE MANAGER TITATIVE MANAGER * Assessment & Plan Note - Loyda Azul MD PhD - 11/19/2023 9:11 PM QUANTITATIVE MANAGER Associated Problem(s): Class 2 obesity with body mass index (BMI) of 38.0 to 38.9 in adult Contributing towards TAZ and AF -encouraged weight loss and caloric restriction TITATIVE MANAGER TITATIVE MANAGER * Assessment & Plan Note - Loyda Azul MD PhD - 11/19/2023 9:10 PM QUANTITATIVE MANAGER Associated Problem(s): TAZ on CPAP -continue evening CPAP TITATIVE MANAGER TITATIVE MANAGER * Assessment & Plan Note - Loyda Azul MD PhD - 11/19/2023 9:10 PM QUANTITATIVE MANAGER Associated Problem(s): Atrial fibrillation (CMS/HCC) (HCC) History [...] Eliquis 5 mg BID -TSH WNL -telemetry TITATIVE MANAGER TITATIVE MANAGER TITATIVE MANAGER TITATIVE MANAGER TITATIVE MANAGER documented in this encounter Plan of Treatment Pending Results Name Type Priority Associated Diagnoses Date /Time Protime-INR Lab Timed 11/19/2023 9: 59 PM QUANTITATIVE MANAGER Magnesium Lab Timed 11/19/2023 9:5 9 PM QUANTITATIVE MANAGER Thyroid Function [place] Lab Timed 11/19/2023 9:59 PM QUANTITATIVE MANAGER Scheduled Orders Name Type Priority Associated Diagnoses Orde r Schedule Protime-INR Lab Timed Once for 1 Oc currences starting 11/19/2023 until 11/19/2023 Magnesium Lab Timed Once for 1 Occ urrences starting 11/19/2023 until 11/19/2023 Thyroid Function [place] Lab Timed Once for 1 Occurrences starting 11/19/2023 until 11/19/2023 documented as of this encounter Procedures Procedure Name Priority Date/Time Associated Diagnosis Comments ECG 12-LEAD Routine 11/22/2023 9:10 AM QUANTITATIVE MANAGER CARDIOVERSION Routine 11/22/2023 7:56 AM QUANTITATIVE MANAGER Atrial fibrillation, unspecified type (HCC) EGFR Routine 11/22/2023 4:34 AM QUANTITATIVE MANAGER CBC WITHOUT DIFFERENTIAL Routine 11/22/2023 4:34 AM QUANTITATIVE MANAGER BASIC METABOLIC PANEL Routine 11/22/2023 4:34 AM QUANTITATIVE MANAGER ECG 12-LEAD Routine 11/21/2023 11:19 AM QUANTITATIVE MANAGER EGFR Routine 11/21/2023 4:19 AM QUANTITATIVE MANAGER CBC WITHOUT DIFFERENTIAL Routine 11/21/2023 4:19 AM QUANTITATIVE MANAGER BASIC METABOLIC PANEL Routine 11/21/2023 4:19 AM QUANTITATIVE MANAGER XR CHEST 1 VIEW IP Routine 11/19/2023 10:37 PM QUANTITATIVE MANAGER EGFR Timed 11/19/2023 9:59 PM QUANTITATIVE MANAGER DIFFERENTIAL AUTO Timed 11/19/2023 9:5 9 PM QUANTITATIVE MANAGER THYROID FUNCTION CASCADE Timed 11/19/2023 9:59 PM QUANTITATIVE MANAGER CBC WITH AUTO DIFFERENTIAL Timed 11/19/2023 9:59 PM QUANTITATIVE MANAGER APTT Timed 11/19/2023 9:59 PM QUANTITATIVE MANAGER PROTIME-INR Timed 11/19/2023 9:59 PM QUANTITATIVE MANAGER MAGNESIUM Timed 11/19/2023 9:59 PM QUANTITATIVE MANAGER LIPID PANEL Timed 11/19/2023 9:59 PM QUANTITATIVE MANAGER COMPREHENSIVE METABOLIC PANEL Timed 11/19/2023 9:59 PM QUANTITATIVE MANAGER ECG 12-LEAD Routine 11/19/2023 9:02 PM QUANTITATIVE MANAGER documented in this encounter Results * ECG 12 lead (11/22/2023 9:10 AM QUANTITATIVE MANAGER) Ventricular Rate EKG/Min 60 BPM [facility] Atrial Rate 60 BPM [facility] HI-Interval (MSEC) 176 ms [facility] QRS-Interval (MSEC) 90 ms [facility] QT-Interval (MSEC) 448 ms [facility] QTc 448 ms [facility] P [place] 57 degrees [facility] R [place] -10 degrees [facility] T [place]cl[place] 15 degrees [facility] Diagnosis Normal sinus rhythm Normal ECG When compared with ECG of 21-NOV-2023 11:19, Sinus rhythm has replaced Atrial fibrillation Vent. rate has decreased BY ??37 BPM Confirmed by Familia MAK, [facility] ([id number]) on 11/22/2023 2:00:53 PM [facility] 11/22/2023 9:10 AM QUANTITATIVE MANAGER 11/22/2023 2:00 PM QUANTITATIVE MANAGER Idris Rosas MD PhD ECG ORDERABLES Fin al Result [facility] * CARDIOVERSION (11/22/2023 7:56 AM QUANTITATIVE MANAGER) Anatomical Region Laterality Modality X-Ray Angiograph y Impressions 11/22/2023 7:59 AM QUANTITATIVE MANAGER ??Successful DC cardioversion to sinus rhythm. The referring EP team was notified. Hari Wen MD PhD was present to personally supervise or perform the entire procedure. Narrative 11/22/2023 7:59 AM QUANTITATIVE MANAGER CARDIOVERSION [id number] PRE-OP DIAGNOSIS: ??Atrial fibrillation CLOTH DESIZING RANGE OPERATOR CHIEF: Hari Wen MD PhD. REFERRING MD: ??Jenaro Rosas MD [facility]; Frances Soler MD; Rinku Beasley MD HISTORY: [...] fully alert. COMPLICATIONS: ??None. us Sukhjinder Barney ANALYTICS ANALYST CV ELECTROPHYSIOLOGY PROCS Final Result * (ABNORMAL) eGFR (11/22/2023 4:34 AM QUANTITATIVE MANAGER) eGFR 54(L) >=60 mL/min/1. 73 m2 [facility] Comment: Interpretive Data Reference Interval Normal [...] last reviewed 2021. Blood 11/22/2023 4:34 AM QUANTITATIVE MANAGER 11/22/2023 5:45 AM QUANTITATIVE MANAGER us Leonides Soler MD LAB BLOOD ORDERABLES Final Re sult [facility] [place] [address] * (ABNORMAL) CBC without differential (11/22/2023 4:34 AM QUANTITATIVE MANAGER) WBC 10.1(H) 3.8 - 9.9 K/cumm [facility] Hgb 11.4(L) 11.9 - 15.5 g/dL [facility] Hct 35.1(L) 35.6 - 45.5 % [facility] Plt 381 150 - 400 K/cumm [facility] MPV 9.5 9.1 - 12.3 fL [facility] RBC 3.95 3.90 - 5.20 M/cumm [facility] MCV 88.9 81.3 - 96.4 fL [facility] MCH 28.9 27.1 - 33.3 pg [facility] MCHC 32.5 32.3 - 35.7 g/dL [facility] RDW CV 13.1 11.1 - 14.9 % [facility] RDW SD 42.4 35.7 - 48.1 fL [facility] NRBC abs 0.00 0.00 - 0.01 K/cumm [facility] Blood 11/22/2023 4:34 AM QUANTITATIVE MANAGER 11/22/2023 5:45 AM QUANTITATIVE MANAGER Leonides Soler MD LAB BLOOD ORDERABLES Final Re sult [facility] [place] [address] * Basic metabolic panel (11/22/2023 4:34 AM QUANTITATIVE MANAGER) Pathologist [facility] Sodium 140 135 - 145 mmol/L [facility] Potassium, pl 4.3 3.3 - 4.9 mmol/L [facility] Chloride 106 97 - 110 mmol/L [facility] CO2 25 22 - 32 mmol/L [facility] Anion gap 9 2 - 15 mmol/L [facility] BUN 19 6 - 25 mg/dL [facility] Creatinine 1.09 0.60 - 1.10 mg/dL [facility] Glucose 93 70 - 199 mg/dL [facility] Comment: Interpretive Data Fasting glucose >/= [...] 2022. Calcium 9.3 8.5 - 10.3 mg/dL [facility] Blood 11/22/2023 4:34 AM QUANTITATIVE MANAGER 11/22/2023 5:45 AM QUANTITATIVE MANAGER Leonides Soler MD LAB BLOOD ORDERABLES Final Re sult Performing Organization Address [facility] Co de Phone Number [facility] [place] [address] * ECG 12 lead (11/21/2023 11:19 AM QUANTITATIVE MANAGER) Ventricular Rate EKG/Min 97 BPM [facility] QRS-Interval (MSEC) 84 ms [facility] QT-Interval (MSEC) 362 ms [facility] QTc 459 ms [facility] R [place] -10 degrees [facility] T [place] 10 degrees [facility] Diagnosis Atrial fibrillation Nonspecific ST abnormality Abnormal ECG Confirmed by Familia MAK, [facility] ([id number]) on 11/21/2023 1:38:23 PM [facility] 11/21/2023 11:1 9 AM QUANTITATIVE MANAGER 11/21/2023 1:38 PM QUANTITATIVE MANAGER us Idris Rosas MD PhD ECG ORDERABLES Fin al Result Performing Organization Address [facility] de Phone Number [facility] * (ABNORMAL) eGFR (11/21/2023 4:19 AM QUANTITATIVE MANAGER) eGFR 49(L) >=60 mL/min/1. 73 m2 [facility] Comment: Interpretive Data Reference Interval Normal [...] last reviewed 2021. Blood 11/21/2023 4:19 AM QUANTITATIVE MANAGER 11/21/2023 5:37 AM QUANTITATIVE MANAGER us Leonides Soler MD LAB BLOOD ORDERABLES Final Re sult [facility] [place] [address] * (ABNORMAL) CBC without differential (11/21/2023 4:19 AM QUANTITATIVE MANAGER) WBC 8.2 3.8 - 9.9 K/cumm [facility] Hgb 11.4(L) 11.9 - 15.5 g/dL [facility] Hct 34.8(L) 35.6 - 45.5 % [facility] Plt 391 150 - 400 K/cumm [facility] MPV 9.4 9.1 - 12.3 fL [facility] RBC 3.91 3.90 - 5.20 M/cumm [facility] MCV 89.0 81.3 - 96.4 fL [facility] MCH 29.2 27.1 - 33.3 pg [facility] MCHC 32.8 32.3 - 35.7 g/dL [facility] RDW CV 13.2 11.1 - 14.9 % [facility] RDW SD 43.0 35.7 - 48.1 fL [facility] NRBC abs 0.00 0.00 - 0.01 K/cumm [facility] Blood 11/21/2023 4:19 AM QUANTITATIVE MANAGER 11/21/2023 5:37 AM QUANTITATIVE MANAGER Leonides Soler MD LAB BLOOD ORDERABLES Final Re sult Performing Organization Address [facility] Co de Phone Number [facility] [place] [address] * (ABNORMAL) Basic metabolic panel (11/21/2023 4:19 AM QUANTITATIVE MANAGER) [facility] Sodium 139 135 - 145 mmol/L [facility] Potassium, pl 4.6 3.3 - 4.9 mmol/L [facility] Chloride 102 97 - 110 mmol/L [facility] CO2 25 22 - 32 mmol/L [facility] Anion gap 12 2 - 15 mmol/L [facility] BUN 18 6 - 25 mg/dL [facility] Creatinine 1.19(H) 0.60 - 1.10 mg/dL [facility] Glucose 97 70 - 199 mg/dL [facility] Comment: Interpretive Data Fasting glucose >/= [...] 2022. Calcium 9.4 8.5 - 10.3 mg/dL [facility] Blood 11/21/2023 4:19 AM QUANTITATIVE MANAGER 11/21/2023 5:37 AM QUANTITATIVE MANAGER Leonides Soler MD LAB BLOOD ORDERABLES Final Re sult Performing Organization Address [facility] de Phone Number [facility] [place] [address] * XR Chest 1 View (11/19/2023 10:37 PM QUANTITATIVE MANAGER) Anatomical Region Laterality Modality Body, Chest N/A Computed Radiogr aphy 11/20/2023 9:10 AM QUANTITATIVE MANAGER Impressions 11/20/2023 9:16 AM QUANTITATIVE MANAGER No priors for comparison. No pleural effusion, [...] Carmelita Moss M.D. Narrative 11/20/2023 9:16 AM QUANTITATIVE MANAGER EXAMINATION: 1 view chest radiograph Procedure Note [...] PROCEDURES F inal Result * Thyroid Function [place] (11/19/2023 9:59 PM QUANTITATIVE MANAGER) TSH 0.81 0.30 - 4.20 mcIUnit/mL [facility] Blood 11/19/2023 9:59 PM QUANTITATIVE MANAGER 11/19/2023 10:32 PM QUANTITATIVE MANAGER us Idris Rosas MD PhD LAB BLOOD ORDERABLE S Final Result Performing Organization Address City/[facility] Co de Phone Number [facility] [place] [address] * (ABNORMAL) eGFR (11/19/2023 9:59 PM QUANTITATIVE MANAGER) Pathologist [facility] eGFR 54(L) >=60 mL/min/1. 73 m2 [facility] Comment: Interpretive Data Reference Interval Normal [...] last reviewed 2021. Blood 11/19/2023 9:59 PM QUANTITATIVE MANAGER 11/19/2023 10:38 PM QUANTITATIVE MANAGER us Loyda Azul MD PhD LAB BLOOD ORDERABLES F inal Result Performing Organization Address City/[facility]/ZIP Co de Phone Number [facility] [place] [address] * Magnesium (11/19/2023 9:59 PM QUANTITATIVE MANAGER) Pathologist [facility] Magnesium 2.2 1.4 - 2.5 mg/dL [facility] Blood 11/19/2023 9:59 PM QUANTITATIVE MANAGER 11/19/2023 10:32 PM QUANTITATIVE MANAGER Idris Rosas MD PhD LAB BLOOD ORDERABLE S Final Result Performing Organization Address City/[facility]/[place] [address] * (ABNORMAL) Protime-INR (11/19/2023 9:59 PM QUANTITATIVE MANAGER) Pathologist [facility] PT 14.2(H) 10.3 - 13.7 sec [facility] INR 1.25(H) 0.90 - 1.20 [facility] Comment: Interpretive data Oral anticoagulant therapeutic ranges: Venous thromboembolism prophylaxis or treatment: 2.0-3.0 CARDIOLOGY Standard range: 2.0-3.0 High-intensity range: 2.5-3.5 Refer to indication-specific guidelines for appropriate target ranges for prosthetic heart valve replacement. Current interpretive data was last revised on 2019. Blood 11/19/2023 9:59 PM QUANTITATIVE MANAGER 11/19/2023 10:32 PM QUANTITATIVE MANAGER Idris Rosas MD PhD LAB BLOOD ORDERABLE S Final Result [facility] [place] [address] * Differential, auto (11/19/2023 9:59 PM QUANTITATIVE MANAGER) Pathologist [facility] Neutrophil abs 5.8 1.5 - 6.5 K/cumm [facility] Imm gran abs 0.0 0.0 - 0.1 K/cumm [facility] Lymphocyte abs 2.4 0.8 - 3.3 K/cumm [facility] Monocyte abs 0.8 0.2 - 0.8 K/cumm [facility] Eosinophil abs 0.1 0.0 - 0.5 K/cumm [facility] Basophil abs 0.1 0.0 - 0.1 K/cumm [facility] Neutrophil pct 63.4 % [facility] Comment: Interpretive Data Percent cell count reference ranges are not reported, since discordance with absolute values may lead to misinterpretation of CBC data. Current Interpretive Data was last revised on 2017. Imm gran pct 0.4 % [facility] Comment: Interpretive Data Percent cell count reference ranges are not reported, since discordance with absolute values may lead to misinterpretation of CBC data. Current Interpretive Data was last revised on 2017. Lymphocyte pct 26.1 % [facility] Comment: Interpretive Data Percent cell count reference ranges are not reported, since discordance with absolute values may lead to misinterpretation of CBC data. Current Interpretive Data was last revised on 2017. Monocyte pct 8.4 % [facility] Comment: Interpretive Data Percent cell count reference ranges are not reported, since discordance with absolute values may lead to misinterpretation of CBC data. Current Interpretive Data was last revised on 2017. Eosinophil pct 1.2 % [facility] Comment: Interpretive Data Percent cell count reference ranges are not reported, since discordance with absolute values may lead to misinterpretation of CBC data. Current Interpretive Data was last revised on 2017. Basophil pct 0.5 % [facility] Comment: Interpretive Data Percent cell count reference ranges are not reported, since discordance with absolute values may lead to misinterpretation of CBC data. Current Interpretive Data was last revised on 2017. Blood 11/19/2023 9:59 PM QUANTITATIVE MANAGER 11/19/2023 10:26 PM QUANTITATIVE MANAGER us Loyda Azul MD PhD LAB BLOOD ORDERABLES F inal Result [facility] [place] [address] * (ABNORMAL) Lipid panel (11/19/2023 9:59 PM QUANTITATIVE MANAGER) [facility] Signature Cholesterol 212(H) 30 - 199 mg/dL [facility] Comment: Interpretive Data Ages < or = [...] on 2018. Triglycerides 104 <=149 mg/dL [facility] Comment: Interpretive Data Ages < or = [...] revised on 2018. HDL 55 >=40 mg/dL [facility] Comment: Interpretive Data Ages < or = [...] on 2018. LDL, calculated 136(H) <=129 mg/dL [facility] Comment: Interpretive Data Ages < or [...] revised on 2018. Non-HDL Cholesterol 157 mg/dL [facility] Comment: Interpretive Data Ages < or [...] last revised on 2018. Chol/HDL ratio 4 [facility] Blood 11/19/2023 9:59 PM QUANTITATIVE MANAGER 11/19/2023 10:32 PM QUANTITATIVE MANAGER Loyda Azul MD PhD LAB BLOOD ORDERABLES F inal Result [facility] [place] [address] * Comprehensive metabolic panel (11/19/2023 9:59 PM QUANTITATIVE MANAGER) Sodium 140 135 - 145 mmol/L [facility] Potassium, pl 4.5 3.3 - 4.9 mmol/L [facility] Chloride 104 97 - 110 mmol/L [facility] CO2 25 22 - 32 mmol/L [facility] Anion gap 11 2 - 15 mmol/L [facility] BUN 17 6 - 25 mg/dL [facility] Creatinine 1.09 0.60 - 1.10 mg/dL [facility] Glucose 96 70 - 199 mg/dL [facility] Comment: Interpretive Data Fasting glucose >/= [...] 2022. Calcium 9.4 8.5 - 10.3 mg/dL [facility] Bilirubin, total 0.2 0.1 - 1.2 mg/dL [facility] Protein, pl 7.7 6.5 - 8.5 g/dL [facility] Albumin 4.2 3.5 - 5.0 g/dL [facility] Alk phos 57 40 - 130 Units/L [facility] ALT 12 7 - 45 Units/L [facility] AST 20 10 - 45 Units/L [facility] Blood 11/19/2023 9:59 PM QUANTITATIVE MANAGER 11/19/2023 10:32 PM QUANTITATIVE MANAGER Loyda Azul MD PhD LAB BLOOD ORDERABLES F inal Result Performing Organization Address City/[facility]/ZIP Co de Phone Number [facility] [place] [address] * (ABNORMAL) CBC with auto differential (11/19/2023 9:59 PM QUANTITATIVE MANAGER) [facility] WBC 9.2 3.8 - 9.9 K/cumm [facility] Hgb 11.0(L) 11.9 - 15.5 g/dL [facility] Hct 33.0(L) 35.6 - 45.5 % [facility] Plt 374 150 - 400 K/cumm [facility] MPV 9.4 9.1 - 12.3 fL [facility] RBC 3.73(L) 3.90 - 5.20 M/cumm [facility] MCV 88.5 81.3 - 96.4 fL [facility] MCH 29.5 27.1 - 33.3 pg [facility] MCHC 33.3 32.3 - 35.7 g/dL [facility] RDW CV 13.0 11.1 - 14.9 % [facility] RDW SD 42.3 35.7 - 48.1 fL [facility] NRBC abs 0.00 0.00 - 0.01 K/cumm [facility] Blood 11/19/2023 9:59 PM QUANTITATIVE MANAGER 11/19/2023 10:26 PM QUANTITATIVE MANAGER Loyda Azul MD PhD LAB BLOOD ORDERABLES F inal Result Performing Organization Address City/[facility]/ZIP Co de Phone Number [facility] [place] [address] * (ABNORMAL) aPTT (11/19/2023 9:59 PM QUANTITATIVE MANAGER) aPTT 39(H) 28 - 38 sec [facility] Comment: Interpretive Data Heparin therapeutic range: 66.0 - 100.0 seconds. Range based on correlation with therapeutic heparin activity range of 0.3 - 0.7 Units/mL. Current interpretive data was last revised on 2023. Blood 11/19/2023 9:59 PM QUANTITATIVE MANAGER 11/19/2023 10:32 PM QUANTITATIVE MANAGER Loyda Azul MD PhD LAB BLOOD ORDERABLES F inal Result [facility] [place] [address] * ECG 12 lead (11/19/2023 9:02 PM QUANTITATIVE MANAGER) Ventricular Rate EKG/Min 113 BPM [facility] QRS-Interval (MSEC) 88 ms [facility] QT-Interval (MSEC) 328 ms [facility] QTc 449 ms [facility] R [place] -1 degrees [facility] T [place] 26 degrees [facility] Diagnosis Atrial fibrillation/f lutter with rapid ventricular response Nonspecific ST abnormality Abnormal ECG No previous ECGs available Confirmed by BRITTNI COLE M.D ([id number]) on 11/20/2023 1:22:10 PM [facility] 11/19/2023 9:02 PM QUANTITATIVE MANAGER 11/20/2023 1:22 PM QUANTITATIVE MANAGER Idris Rosas MD PhD ECG ORDERABLES Fin al Result [facility] documented in this encounter Visit Diagnoses Diagnosis [...] Indications: Fever, PainIndications:Fever,Pain Given 11/22/2023 9:01 AM QUANTITATIVE MANAGER 650 mg Given 11/21/2023 10:13 PM QUANTITATIVE MANAGER 650 mg Given 11/20/2023 9:07 PM QUANTITATIVE MANAGER 650 mg apixaban (ELIQUIS) tablet 5 mg 5 mg, oral, Every 12 hours scheduled, First dose on Sat11/19/23 at 2300, Nurse to discontinue heparin infusion order and associated bolus at first administration of apixaban using ? order condition met? order source, Indications: atrial fibrillationIndications:atrial fibrillation Given 11/22/2023 9:01 AM QUANTITATIVE MANAGER 5 mg Given 11/21/2023 8:10 PM QUANTITATIVE MANAGER 5 mg Given 11/21/2023 9:05 AM QUANTITATIVE MANAGER 5 mg diphenhydrAMINE (BENADRYL) tab/cap 25 mg 25 mg, oral, Nightly PRN, allergies, Starting on Sat11/19/23 at 2232 Given 11/21/2023 10:13 PM QUANTITATIVE MANAGER 25 mg Given 11/20/2023 9:07 PM QUANTITATIVE MANAGER 25 mg Given 11/19/2023 11:17 PM QUANTITATIVE MANAGER 25 mg dofetilide (TIKOSYN) capsule 125 mcg 125 mcg, oral, 2 times daily, First dose (after last modification) on Sat11/20/23 at 2100, Ensure patient has drug supply prior to discharge., Indications: cardiac arrhythmiaIndications:cardiac arrhythmia Given 11/22/2023 7:04 AM QUANTITATIVE MANAGER 125 mcg Given 11/21/2023 8:10 PM QUANTITATIVE MANAGER 125 mcg Given 11/21/2023 9:04 AM QUANTITATIVE MANAGER 125 mcg dofetilide (TIKOSYN) capsule 250 mcg 250 mcg, oral, 2 times daily, First dose on Sat11/20/23 at 0015, Ensure patient has drug supply prior to discharge., Indications: cardiac arrhythmiaIndications:cardiac arrhythmia Given 11/20/2023 9:57 AM QUANTITATIVE MANAGER 250 mcg Given 11/20/2023 12:37 AM QUANTITATIVE MANAGER 250 mcg metoprolol XL (TOPROL-XL) extended release tablet 100 mg 100 mg, oral, Daily, First dose on Sat11/20/23 at 0900, Tablets that are scored may be split, but do not crush, chew, dissolve, open or otherwise manipulate tablet/capsule. Given 11/22/2023 9:02 AM QUANTITATIVE MANAGER 100 mg Given 11/21/2023 9:05 AM QUANTITATIVE MANAGER 100 mg Given 11/20/2023 9:58 AM QUANTITATIVE MANAGER 100 mg metoprolol XL (TOPROL-XL) extended release tablet 50 mg 50 mg, oral, Once, On Sat11/19/23 at 2145, For 1 dose, Tablets that are scored may be split, but do not crush, chew, dissolve, open or otherwise manipulate tablet/capsule. Given 11/19/2023 10:24 PM QUANTITATIVE MANAGER [address] (PROTONIX) extended release tablet 40 mg 40 mg, oral, Daily, First dose on Sat11/20/23 at 0900, Do not crush, chew, cut, dissolve, open or otherwise manipulate tablet/capsule., Indications: Treatment of Non-Bleeding Gastric DisorderIndications:Treatment of Non-Bleeding Gastric Disorder Given 11/22/2023 9:01 AM QUANTITATIVE MANAGER 40 mg Given 11/21/2023 9:05 AM QUANTITATIVE MANAGER 40 mg Given 11/20/2023 9:58 AM QUANTITATIVE MANAGER 40 mg sodium chloride 0.9% flush 0.5-20 mL 0.5-20 mL, intra-catheter, Every 8 hours scheduled, First dose on Sat11/19/23 at 2200, Flush volume based on line type and size. Given 11/21/2023 8:10 PM QUANTITATIVE MANAGER 10 mL Given 11/21/2023 9:06 AM QUANTITATIVE MANAGER 10 mL Given 11/20/2023 9:10 PM QUANTITATIVE MANAGER 10 mL sodium chloride 0.9% infusion 30 mL/hr, intravenous, Continuous, Starting on Sat11/22/23 at 0730 Rate/Dose Verify 11/22/2023 7:46 AM QUANTITATIVE MANAGER 30 mL/hr New Bag 11/22/2023 6:55 AM QUANTITATIVE MANAGER 30 mL/hr 30 mL/hr spironolactone (ALDACTONE) tablet 50 mg 50 mg, oral, Daily, First dose on Sat11/20/23 at 0900 Given 11/22/2023 9:02 AM QUANTITATIVE MANAGER 50 mg Given 11/21/2023 9:05 AM QUANTITATIVE MANAGER 50 mg Given 11/20/2023 9:58 AM QUANTITATIVE MANAGER 50 mg documented in this encounter Discontinued [...] Recently Administered Medications Times are shown in QUANTITATIVE MANAGER. Scheduled Medication Order 11/20/2023 11/21/2023 11/22/2023 apixaban (ELIQUIS) tablet 5 mg 5 mg, oral, Every 12 hours scheduled, First dose on Sat11/19/23 at 2300, Nurse to discontinue heparin infusion order and associated bolus at first administration of apixaban using ? order condition met? order source, Indications: atrial fibrillation 957 (Given - Provider: Tang Pollack, RN)2107 (Given - Provider: Lillian Wooten, TAIWO) 904 (Given - Provider: Ko Mejia RN)2009 (Given - Provider: Sandy Mckeon, TAIWO) 06 (NOV Hold - Provider: Automatic Transfer Provider - Reason: Patient not available)0843 (MAR Unhold - Provider: Automatic Transfer Provider)09 (Given - Provider: Tiana Camp RN) dofetilide (TIKOSYN) capsule 125 mcg 125 mcg, oral, 2 times daily, First dose (after last modification) on Sat11/20/23 at 2100, Ensure patient has drug supply prior to discharge., Indications: cardiac arrhythmia 2107 (Given - Provider: Lillian Wooten RN) 903 (Given - Provider: Ko Mejia, TAIWO)2009 (Given - Provider: Sandy Mckeon, TAIWO) 0619 (NOV Hold - Provider: Automatic Transfer Provider - Reason: Patient not available)07 (Given - Provider: Tara Marshall RN)0843 (MAR Unhold - Provider: Automatic Transfer Provider)0902 (Canceled Entry - Provider: Tiana Camp RN - Comment: medication already administered) dofetilide (TIKOSYN) capsule 250 mcg (CANCELED) 250 mcg, oral, 2 times daily, First dose on Sat11/20/23 at 0015, Ensure patient has drug supply prior to discharge., Indications: cardiac arrhythmia 0037 (Given - Provider: Lillian Wooten RN)0957 (Given - Provider: Tang Pollack RN) metoprolol XL (TOPROL-XL) extended release tablet 100 mg 100 mg, oral, Daily, First dose on Sat11/20/23 at 0900, Tablets that are scored may be split, but do not crush, chew, dissolve, open or otherwise manipulate tablet/capsule. 0958 (Given - Provider: Tang Pollack RN) 0905 (Given - Provider: Ko Mejia RN) 0619 (MAR Hold - Provider: Automatic Transfer Provider - Reason: Patient not available)0843 (MAR Unhold - Provider: Automatic Transfer Provider)0902 (Given - Provider: Tiana Camp RN) pantoprazole DR (PROTONIX) extended release tablet 40 mg 40 mg, oral, Daily, First dose on Sat11/20/23 at 0900, Do not crush, chew, cut, dissolve, open or otherwise manipulate tablet/capsule., Indications: Treatment of Non-Bleeding Gastric Disorder 0958 (Given - Provider: Tang Pollack RN) 0905 (Given - Provider: Ko Mejia RN) 0619 (MAR Hold - Provider: Automatic Transfer Provider - Reason: Patient not available)0843 (MAR Unhold - Provider: Automatic Transfer Provider)0901 (Given - Provider: Tiana Camp RN) sodium chloride 0.9% flush 0.5-20 mL 0.5-20 mL, intra-catheter, Every 8 hours scheduled, First dose on Sat11/19/23 at 2200, Flush volume based on line type and size. 0958 (Given - Provider: Tang Pollack RN)1456 (Given - Provider: Tang Pollack RN)2109 (Given - Provider: Lillian Wooten RN) 905 (Given - Provider: Ko Mejia RN)2009 (Given - Provider: Sandy Mckeon RN) 0403 (Canceled Entry - Provider: Sandy Mckeon RN)0602 (Canceled Entry - Provider: Sandy Mckeon RN)0619 (NOV Hold - Provider: Automatic Transfer Provider - Reason: Patient not available)0843 ([facility] Unhold - Provider: Automatic Transfer Provider)1400 (Due) spironolactone (ALDACTONE) tablet 50 mg 50 mg, oral, Daily, First dose on Sat11/20/23 at 0900 0958 (Given - Provider: Tang Pollack RN) 0905 (Given - Provider: Ko Mejia RN) 0619 (NOV Hold - Provider: Automatic Transfer Provider - Reason: Patient not available)0843 (NOV Unhold - Provider: Automatic Transfer Provider)0902 (Given - Provider: Tiana Camp, TAIWO) Continuous [...] Pain 1008 (Given - Provider: Tang Pollack RN)2107 (Given - Provider: Lillian Wooten RN) 2213 (Given - Provider: Sandy Mckeon RN) 0619 (NOV Hold - Provider: Automatic Transfer Provider - Reason: Patient not available)0843 ([facility] Unhold - Provider: Automatic Transfer Provider)0901 (Given - Provider: Tiana Camp RN) Carrier Fluids for Secondary Infusion - 0.9% Sodium Chloride 30 mL, intravenous, As needed, For priming tubing and/or flushing, Starting on Sat11/19/23 at 2058, 0-250 ml/hr to flush line after IV infusions when no maintenance IV ordered. Infuse 30mL at the same rate as the secondary infusion. Run as primary IV, not intended for KVO. 0619 ([facility] Hold - Provider: Automatic Transfer Provider - Reason: Patient not available)0843 ([facility] Unhold - Provider: Automatic Transfer Provider) diphenhydrAMINE (BENADRYL) tab/cap 25 mg 25 mg, oral, Nightly PRN, allergies, Starting on Sat11/19/23 at 2232 2107 (Given - Provider: Lillian Wooten, RN) 2213 (Given - Provider: Sandy Mckeon, TAIWO) 0619 ([facility] Hold - Provider: Automatic Transfer Provider - Reason: Patient not available)0843 ([facility] Unhold - Provider: Automatic Transfer Provider) ramelteon (ROZEREM) tablet 8 mg 8 mg, oral, Nightly PRN, sleep, Starting on Sat11/19/23 at 2058, Indications: Sleep-Onset Insomnia 0619 ([facility] Hold - Provider: Automatic Transfer Provider - Reason: Patient not available)0843 ([facility] Unhold - Provider: Automatic Transfer Provider) senna-docusate (PERICOLACE) 8.6-50 mg per tablet 1 tablet 1 tablet, oral, 2 times daily PRN, constipation, Starting on Sat11/19/23 at 2058, Indications: constipation 0619 ([facility] Hold - Provider: Automatic Transfer Provider - Reason: Patient not available)0843 ([facility] Unhold - Provider: Automatic Transfer Provider) sodium chloride 0.9% flush 0.5-20 mL 0.5-20 mL, intra-catheter, As needed, line care, Starting on Sat11/19/23 at 2058, Flush volume based on line type and size. Flush before and after each use. 0619 ([facility] Hold - Provider: Automatic Transfer Provider - Reason: Patient not available)0843 ([facility] Unhold - Provider: Automatic Transfer Provider) documented in this encounter Orders Medications Ordered That Kobe ht Not Have Been Administered Count Last Ordered Date First Ordered Date Carrier Fluids for Secondary Infusion - 0.9% Sodium Chloride 1 11/19/2023 ondansetron (ZOFRAN) injection 4 mg 1 11/19 ondansetron ODT (ZOFRAN-ODT) disintegrating tablet 4 mg 1 11/19/2023 ramelteon (ROZEREM) tablet 8 mg 1 senna-docusate (PERICOLACE) 8.6-50 mg per tablet 1 tablet 1 11/19/2023 sodium chloride 0.9% flush 0.5-20 mL 1 10/25 Lab Orders Without Results Count Last Ordered [...] 11/19/2023 documented in this encounter Care Teams Plaster Model And Mold Maker Relationship Specialty Start Date End Date Rinku Beasley MD [address] [place] [address] PCP - General 09/08/19 documented as of this encounter
--- OUTSIDE RECORDS SUMMARY | 2024-10-06 05:35 | XMS_ITS | Encounter Summary ---
Author Organization [facility] Address [address] [place] [address] Phone Care Team Providers Care Physical Damage Appraiser Name Role Phone Rinku Beasley MD Primary Care Provider + [phone] Encounter Details Date Type Department Care Team (Late st Contact Info) Description 08/17/2024 Telephone [facility] Cardiology [address] [facility] Advanced Medicine [address] [place] [address] [place] [address] Cheryl Palma Social History Tobacco Use Types Packs/Day Years [...] on file Legal 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 ING MACHINE TENDER * Telephone Encounter - Flora Swann RN - 08/18/2024 4:16 PM CST Spoke with pt and let her know orders faxed and [facility] confirmed they have orders. Pt requested I mail orders to her so she has them in hand next time. Dr. Tee's MA refilled her dofetilide. I explained to her it really is best that our team do the refills so we are monitoringher renal function and EKG measurements.She understands. ING MACHINE TENDER * Telephone Encounter - Flora Swann RN - 08/18/2024 10:07 AM CST Orders faxed via [employer]. ING MACHINE TENDER * Telephone Encounter - Flora Swann RN - 08/17/2024 4:22 PM CST Orders placed. Need to wait for TWS to sign EKG order and then fax to [facility] at fax: [phone] ING MACHINE TENDER * Telephone Encounter - Cheryl Palma - 08/17/2024 11:13 AM CST [facility] CALLING IN REGARDS TO HAVING LAB WORK DONE. REQ ORDER BE SENT TO: [facility] ING MACHINE TENDER documented in this encounter Plan of Treatment Not on file documented as of this encounter Visit Diagnoses Not on filedocumented in this encounter Care Teams Physical Damage Appraiser Relationship Specialty Start Date End Date Rinku Beasley MD [address] [place] [address] PCP - General 09/08/19 documented as of this encounter
--- OUTSIDE RECORDS SUMMARY | 2024-10-06 05:35 | XMS_ITS | Encounter Summary ---
Author Organization [facility] SAIDA Agrawal [facility] Address [address] [place] [address] Care Team Providers Care Proposal Writer Name Role Phone Rinku Beasley MD Primary Care Provider + Encounter Details Date Type Department Care Team (Late st Contact Info) Description 04/23/[address] [facility] Oncology and Hematology - [place] [address] [place] [address] Jacinto Arzate MD 222[facility] [address] [place] [address] Social History Tobacco Use Types Packs/Day [...] st Contact Info) Description 11/09/2024 1:15 PM AUDIO TAPE LIBRARIAN Office Visit [facility] Oncology and Hematology - [place] [address] [place] [address] Jacinto Arzate MD [address] [place] [address] documented as of this encounter Procedures Procedure Name Priority Date/Time Associated Diagnosis Comments BASIC METABOLIC PANEL Routine 04/22/2024 2:01 PM CDT CBC WITH DIFFERENTIAL Routine 04/22/2024 10:01 AM CDT documented in this encounter Results * BASIC METABOLIC PANEL (04/22/2024 2:01 PM CDT) Blood Jacinto Arzate MD CHEMISTRY ORDERABLES * CBC WITH DIFFERENTIAL (04/22/2024 10:01 AM CDT) Blood Jacinto Arzate MD HEMATOLOGY ORDERABLE S documented in this encounter Visit Diagnoses Not on filedocumented in this encounter Care Teams Proposal Writer Relationship Specialty Start Date End Date Rinku Beasley MD [address] [place] [phone] PCP - General Internal Medicine 05/22/23 documented as of this encounter
--- OUTSIDE RECORDS SUMMARY | 2024-10-06 05:35 | XMS_ITS | Encounter Summary ---
Author Organization [facility] Address [address] [place] [address] Care Team Providers Care Air Sampling And Monitoring Name Role Phone Rinku Beasley MD Primary [...] st Contact Info) Description 11/09/2024 1:15 PM LPC Office Visit [facility] Oncology and Hematology - [place] [address] [place] [address] [facility] [address] [place] [address] Jacinto Arzate MD [address] [facility] [address] [place] [address] documented as of this encounter Visit Diagnoses Not on filedocumented in this encounter Care Teams Air Sampling And Monitoring Relationship Specialty Start Date End Date Rinku Beasley MD [address] [place] [address] PCP - General Internal Medicine 05/22/23 documented as of this encounter
--- OUTSIDE RECORDS SUMMARY | 2024-10-06 05:35 | XMS_ITS | Encounter Summary ---
Author Organization [facility] Healthcare Address [address] [place] [address] Care Team Providers Care Autos Disassembler Name Role Phone Rinku Beasley MD Primary Care Provider Encounter Details Date Type Department Care Team (Late st Contact Info) Description 10/23/2023 Orders Only [facility] Medical Group Cardiology [address] [facility] [address] [address] Saul Tee MD [address] [facility] [address] [place] [address] Social History Tobacco Use Types [...] on file Legal Sex Female 12:33 AM PRESALES CONSULTANT Gender Identity Not on file Sexual Orientation Not on file documented as of this encounter Plan of Treatment Not on file documented as of this encounter Procedures Procedure Name Priority Date/Time Associated Diagnosis Comments CARDIOLOGY DOCUMENT SCAN Routine 10/21/2023 6:05 PM PRESALES CONSULTANT documented in this encounter Results * Cardiology Document Scan (10/21/2023 6:05 PM PRESALES CONSULTANT) Anatomical Region Laterality Modality Other us Saul Tee MD CV CARDIAC SERVICES PROC EDURES Final Result documented in this encounter Visit Diagnoses Not on filedocumented in this encounter Care Teams Autos Disassembler Relationship Specialty Start Date End Date Rinku Beasley MD [address] [place] [address] PCP - General 09/08/19 documented as of this encounter
--- OUTSIDE RECORDS SUMMARY | 2024-10-06 05:36 | XMS_ITS | Encounter Summary ---
Author Organization [facility] Address [address] [facility] [address] [place] [address] Care Team Providers Care Ride Attendant Name Role Phone Rinku Beasley MD Primary Care Provider [phone] Reason for Visit * Reason Comments New Patient mv and av insufficie ncy * Consultation (Routine) - Closed Specialty Diagnoses / Procedures Referred By Contac t Referred To Contact Cardiology Diagnoses Mitral valve insufficiency and aortic valve insufficiency Laurie Wilkins NP Phone: tel: fax: [facility] [address] [address] Phone: tel: fax: Referral ID Status Reason Start Date Expiration Date V isits Requested Visits Authorized [id number] Closed Specialty Services Required 07/16/2019 01/24/2021 1 1 Encounter Details Date Type Department Care Team (Latest Contact Info) Description 11/17/2019 11:00 AM ENCHILADA MAKER Office Visit [facility] Cardiology [address] [address] Saul Tee MD [address] [address] Mitral valve insufficiency and aortic valve insufficiency Social History Tobacco Use Types Packs/Day Years [...] on file Legal Sex Female 12:33 AM ENCHILADA MAKER Gender Identity Not on file Sexual Orientation Not on file documented as of this encounter Last Filed Vital Signs Vital Sign Reading Time Taken Comments Blood Pressure 120/72 11/17/2019 11:02 AM ENCHILADA MAKER Pulse 77 11/17/2019 11:02 AM ENCHILADA MAKER Temperature - - Respiratory Rate - - Oxygen Saturation 98% 11/17/2019 11:02 AM ENCHILADA MAKER Inhaled Oxygen Concentration - - Weight 94.3 kg (208 lb) 11/17/2019 11:02 AM ENCHILADA MAKER Height 160 cm (5' 3 ) 11/17/2019 11:02 AM ENCHILADA MAKER Body Mass Index 36.85 11/17/2019 11:02 AM ENCHILADA MAKER documented in this encounter Progress Notes * Saul Tee MD - 11/17/2019 11:00 AM CST [facility] 11/17/2019 CHIEF COMPLAINT New patient referral for valvular heart disease. MACKENZIE Castaneda is a 69 y.o. female with a reported history of valvular heart disease referred here today for consultation. The patient had echocardiograms done according to records that I received forthis appointment both at [facility] in [place] and up in [place] last year which demonstrated evidence of mild mitral valve insufficiency. The referral indicates that the patient had some aortic regurgitation although neither echocardiogram comments on any detectable aortic regurgitation. Both studies demonstrate left ventricular systolic function is normal. The patient also had a Lexiscan nuclear stress test done at that time because of chest pain and according to the report the exam was negative. The echo done in [place] was done in September of [address] Castillo. The patient states that this workup was done because she was having intermittent episodes of some central chest tightness that seemed to be occurring off and on in a nonexertional/unpredictable fashion. 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 Most of the time she has not noticed that aerobic activity such as walking or stair climbing has anything to do with this symptom. Because of the symptoms and the workup as described above she was referred here today to become established for ongoing care and evaluation. She is not noticing any symptoms of palpitations syncope orthopnea PND or edema. She does have longstanding hypertension which according to today's office visit is under good control. Her 12 lead ECG in the office today as a new patient is a normal tracing. MEDICAL HISTORY No past medical history on file. No past surgical history on file. No family history on file. Social History Socioeconomic History ??? Marital status: Spouse name: Not on file ??? Number of children: Not on file ??? Years of education: Not on file ??? Highest education level: Not on file Occupational History ??? Not on file Social Needs ??? Financial resource strain: Not on file ??? Food insecurity Worry: Not on file Inability: Not on file ??? Transportation needs Medical: Not on file Non-medical: Not on file Tobacco Use ??? Smoking status: Not on file Substance and Sexual Activity ??? Alcohol use: Not on file ??? Drug use: Not on file ??? Sexual activity: Not on file Lifestyle ??? Physical activity Days per week: Not on file Minutes per session: Not on file ??? Stress: Not on file Relationships ??? Social connections Talks on phone: Not on file Gets together: Not on file Attends confucianist service: Not on file Active member of club or organization: Not on file Attends meetings of clubs or organizations: Not on file Relationship status: Not on file ??? Intimate partner violence Fear of current or ex partner: Not on file Emotionally abused: Not on file Physically abused: Not on file Forced sexual activity: Not on file Other Topics Concern ??? Not on file Social History Narrative ??? Not on file (Not in a hospital admission) Allergies Allergen Reactions ??? Hydrocodone-Acetaminophen Hives, Itching and Rash ??? Red Dye Rash Itching hives rash, REVIEW OF SYSTEMS General ROS: negative for [...] for dry skin, eczema, pruritus and rash LABS AND OTHER DIAGNOSTIC TESTS No results found for: WBC, HGB, HCT, MCV, PLT No lab exists for component: LABALBU No results found for: CHOL No results found for: HDL No results found for: LDLCALC No results found for: TRIG No results found for: CHOLHDL PHYSICAL EXAM There were no vitals taken for this visit. General appearance - alert, well appearing, and in no distress, oriented to person, place, and timeand acyanotic, in no respiratory distress Mental status [...] retractions or cyanosis Heart - normal rate, regular rhythm, normal S1, S2, very soft grade 1-2 systolic ejection murmur atthe left sternal border that does not radiate, only audible with breath holding. No rubs, clicks orgallops, no JVD Abdomen - soft, nontender, nondistended, [...] rashes, no suspicious skin lesions noted ASSESSMENT Mild mitral valve regurgitation by echo asymptomatic and unlikely to become a problem as it is verymild Chronic hypertension with good control Obesity Nonexertional chest pain noninvasive evaluation with Lexiscan nuclear stress testing last year was negative. PLAN/RECOMMENDATIONS At this point the patient does not require further cardiac testing or workup. I do not see an indication to take her to the labor delivery specialist for angiography given the atypical nature of her symptoms and negative noninvasive testing. Her mitral valve regurgitation is very mild unlikely to become a clinical problem I will see her in a p.r.n. fashion Saul Tee MD ILADA MAKER documented in this encounter Plan of Treatment Not on file documented as of this encounter Visit Diagnoses Diagnosis Mitral valve insufficiency and aortic valve insufficiency documented in this encounter Historical Medications * This list may reflect changes made after this encounter. omeprazole (PriLOSEC) 40 mg capsule Take 1 capsule (40 mg total) by mouth daily acetaminophen (TYLENOL) 325 mg tablet Take 500 mg by mouth daily traMADol-acetamin ophen (ULTRACET) 37.5-325 mg per tablet as needed 06/06/2021 omega-3 fatty acids (LOVAZA) 1 gram capsule Take 1,000 mg by mouth daily 05/25/2021 losartan (COZAAR) 100 mg tablet Take 50 mg by mouth daily 0 09/01/2019 05/25/2021 hydroCHLOROthiazi de (HYDRODIURIL) 12.5 mg tablet Take 12.5 mg by mouth daily 1 08/30/2019 05/25/2021 alendronate (FOSAMAX) 70 mg tablet 1 tablet once a week 04/26/2022 added in this encounter Orders Outpatient Referral Count Last Ordered Date Fir st Ordered Date AMB REFERRAL TO CARDIOLOGY 1 11/17/2019 documented in this encounter Care Teams Ride Attendant Relationship Specialty Start Date End Date Rinku Beasley MD [address] [place], [place] [id number] PCP - General 09/08/19 documented as of this encounter
--- OUTSIDE RECORDS SUMMARY | 2024-10-06 05:36 | XMS_ITS | Encounter Summary ---
Author Organization [facility] Address [address] [facility] [address] [place] [address] Care Team Providers Care Emergency Dispatch Operator Name Role Phone Rinku Beasley MD Primary Care Provider Encounter Details Date Type Department Care Team ([facility] st Contact Info) Description 04/19/2023 Telephone [facility] Cardiology [address] [place] [address] Leticia Prasad CMA Social History Tobacco Use Types Packs/Day Years [...] on file Legal Sex Female 12:33 AM ON AIR HOST Gender Identity Not on file Sexual Orientation Not on file documented as of this encounter Miscellaneous Notes * Telephone Encounter - Leticia Prasad CMA - 04/19/2023 7:40 AM CDT R/s for 04/30 [facility] appt documented in this encounter Plan of Treatment Not on file documented as of this encounter Visit Diagnoses Not on filedocumented in this encounter Care Teams Emergency Dispatch Operator Relationship Specialty Start Date End Date Rinku Beasley MD [address] [place] [address] PCP - General 09/08/19 documented as of this encounter
--- OUTSIDE RECORDS SUMMARY | 2024-10-06 05:36 | XMS_ITS | Encounter Summary ---
Author Organization [facility] Address [address] [facility] [address] [place] [address] Care Team Providers Care Cement Sack Breaker Name Role Phone Rinku Beasley MD Primary Care Provider Reason for Visit * Reason Comments Follow-up after CV on 06/07/21 Atrial Fibrillation Encounter Details Date Type Department Care Team (Late st Contact Info) Description 07/11/2021 4:00 PM CDT Office Visit [facility] Cardiology [address] [place] [address] Saul eTe MD [address] [place] [address] Paroxysmal atrial fibrillation (CMS/HCC) (HCC) [...] on file Legal Sex Female 12:[address] Gender Identity Not on file Sexual Orientation Not on file documented as of this encounter Last Filed Vital Signs Vital Sign Reading Time Taken Comments Blood Pressure 128/66 07/11/2021 4:07 PM CDT Pulse 55 07/11/2021 4:07 PM CDT Temperature - - Respiratory Rate - - Oxygen Saturation 98% 07/11/2021 4:07 PM CDT Inhaled Oxygen Concentration - - Weight 101.4 kg (223 lb 9.6 oz) 07/11/2021 4:07 PM CDT Height 160 cm (5' 3 ) 07/11/2021 4:07 PM CDT Body Mass Index 39.61 07/11/2021 4:07 PM CDT documented in this encounter Ordered Prescriptions Prescription Sig Dispense Quantity Refills Last Filled Start Date End Date amiodarone (PACERONE) 200 mg tablet Take 1 tablet (200 mg total) by mouth daily 30 tablet 11 07/11/2021 07/18/2023 documented in this encounter Progress Notes * Saul Tee MD - 07/11/2021 4:00 PM CDT [facility] FOLLOW UP 07/11/2021 Lluvia Castaneda is a 71 y.o. female who presents for follow up [...] DC cardioversion on 06/07/2021 restoring sinus rhythm. She returns to the office today about 1 month after the above described cardioversion. Electrocardiogram shows sinus bradycardia heart rate of 50. She feels much better now that she is in sinus rhythm she says she was on a vacation in [place] last month walking and hiking distances with her family she was mildly breathless with activity but feels much better than when she was in atrial fibrillation. I told the patient today I would like to start weaning down her amiodarone dosage. REVIEW OF SYSTEMS General ROS: negative for [...] and rash HOME MEDICATIONS Current Outpatient Medications: ??? acetaminophen (TYLENOL) 325 mg tablet, Take 650 mg by mouth daily, Disp: , Rfl: ??? acidophilus-pectin, citrus 100 million cell-10 mg capsule, Take by mouth, Disp: , Rfl: ??? alendronate (FOSAMAX) 70 mg tablet, 1 tablet once a week, Disp: , Rfl: ??? amiodarone (PACERONE) 200 mg tablet, Take 200 mg by mouth 2 (two) times a day , Disp: , Rfl: ??? cholecalciferol (VITAMIN D-3) 82160 unit capsule, Take 1 Units by mouth daily, Disp: , Rfl: ??? cranberry fruit extract (CRANBERRY ORAL), Take by mouth, Disp: , Rfl: ??? diphenhydrAMINE (BENADRYL) 25 mg capsule, Take 25 mg by mouth nightly as needed for itching, Disp: , Rfl: ??? Eliquis 5 mg tablet, TAKE 1 TABLET (5 MG) BY ORAL ROUTE 2 TIMES PER DAY, Disp: , Rfl: ??? furosemide (LASIX) 20 mg tablet, Take 20 mg by mouth daily , Disp: , Rfl: ??? losartan (COZAAR) 50 mg tablet, Take 25 mg by mouth daily, Disp: , Rfl: ??? metoprolol tartrate (LOPRESSOR) 50 mg immediate release tablet, Take 50 mg by mouth 2 (two) times a day , Disp: , Rfl: ??? omeprazole (PriLOSEC) 40 mg capsule, Take 40 mg by mouth daily, Disp: , Rfl: ??? potassium chloride ER 10 mEq CR tablet, Take 10 mEq by mouth daily , Disp: , Rfl: ??? TURMERIC ORAL, Take by mouth, Disp: , Rfl: ??? vitamin B complex capsule, Take 1 capsule by mouth daily, Disp: , Rfl: ??? zinc gluconate 50 mg tablet, Take 50 mg by mouth daily, Disp: , Rfl: LABS AND OTHER DIAGNOSTIC TESTS No results found for: CHOL No results found for: HDL No results found for: LDLCALC No results found for: TRIG No results found for: CHOLHDL No results found for: WBC, HGB, HCT, MCV, PLT No lab exists for component: LABALBU PHYSICAL EXAM Vitals BP 128/66 (BP Location: Left arm, Patient Position: Sitting) Pulse 55 Ht 160 cm (5' 3 ) Wt 101.4 kg (223 lb 9.6 oz) SpO2 98% BMI 39.61 kg/m?? Physical Examination: General appearance - alert, [...] atrial fibrillation Obesity Mild mitral regurgitation PLAN/RECOMMENDATIONS Reduce amiodarone to 200 mg daily Follow-up in about 3 months If she is doing well at that time I will consider reducing her beta-gabriela Saul Tee MD documented in this encounter Miscellaneous Notes * Addendum Note - Ngoc Luevano MA - 07/11/2021 4:00 PM CDTAddended by: NGOC LUEVANO on: 07/12/2021 09:19 AM Modules accepted: Orders documented in this encounter Plan of Treatment Not on file documented as of this encounter Procedures Procedure Name Priority Date/Time Associated Diagnosis Comments ECG 12-LEAD Routine 07/11/2021 Paroxysmal atrial fibrillation (CMS/HCC) (HCC) documented in this encounter Results * ECG 12 lead (07/11/2021) us Saul Tee MD ECG ORDERABLES Final Re sult documented in this encounter Visit Diagnoses Diagnosis Paroxysmal atrial fibrillation (CMS/HCC) (HCC)- Primary Atrial fibrillation documented in this encounter Discontinued Medications Medication Sig Discontinue Reason Start Date End Da te amiodarone (PACERONE) 200 mg tablet Take 200 mg by mouth 2 (two) times a day 05/23/2021 07/11/2021 documented as of this encounter Care Teams Cement Sack Breaker Relationship Specialty Start Date End Date Rinku Beasley MD [address] [place] [address] PCP - General 09/08/19 documented as of this encounter
--- OUTSIDE RECORDS SUMMARY | 2024-10-06 05:36 | XMS_ITS | Encounter Summary ---
Author Organization [facility] Healthcare Address [address] [place] [address] Care Team Providers Care Leg Breaker Name Role Phone Unavailable Primary Care Provider Unavailabl e Encounter Details Date Type Department Care Team (Late st Contact Info) Description 12/16/2009 12:01 AM CDT - 12/16/2009 11:59 PM CDT Hospital Encounter [facility] Tuan Nur MD [address] [place] [address] Thoracic or lumbosacral neuritis or radiculitis; Generalized osteoarthrosis, involving multiple sites Social History Tobacco Use Types Packs/Day Years Used Date Smoking Tobacco: Never Assessed Comments Unknown Sex and Gender Information Value Date Recorded Sex Assigned at Not on file Legal Sex Female 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
--- OUTSIDE RECORDS SUMMARY | 2024-10-06 05:36 | XMS_ITS | Encounter Summary ---
Author Organization [facility] Address [address] [facility] [address] [place] [address] Care Team Providers Care Protector Plate Attacher Name Role Phone Rinku Beasley MD Primary Care Provider [phone] Encounter Details Date Type Department Care Team (Late st Contact Info) Description 05/20/2023 Telephone [facility] Cardiology [address] [facility] [address] [facility] [address] [place] [address] Saul Tee MD [address] [facility] [address] [facility] [address] [place] [address] Social History Tobacco Use Types [...] on file Legal 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 They did receive my request for orders but have not sent them to us yet. RN fax number given. They will fax orders. * Telephone Encounter - Svitlana Green RN - 05/30/2023 9:26 AM CDT Spoke with pt. Note below reviewed. Referral to Dr Freed faxed yesterday. Pt given number to call for appt. IV resp - spoke with them yesterday and faxed all pertinent pt info. They will fax back orders for pt for MD to sign. * Telephone Encounter - Svitlana Green RN - 05/29/2023 4:58 PM CDT Attempted to call pt again. NA. Referral to Dr Freed faxed and [facility] info faxed this am withrequest for orders to be signed. * Telephone Encounter - Tara Thurman NP - 05/29/2023 2:08 PM CDT Please let her know I reviewed her sleep study result. It showed she has severe sleep apnea. I would like to refer her to Dr. Freed who read her study. The report has enough information for us to gether CPAP ordered and started if she wants to get it going before her appt with Dr. Freed. After theappt, Dr. Freed can take over. Thank you. * Telephone Encounter - Svitlana Green RN - 05/29/2023 7:54 AM CDT Lm on requesting pt call to review ST results. * Telephone Encounter - Svitlana Green RN - 05/28/2023 10:10 AM CDT Spoke with sleep lab, it is still in draft form and she will place on desk for MD today. We should have results in 1-2 days. Pt updated as well. * Telephone Encounter - Nikki Palomo - 05/28/2023 9:55 AM CDT Pt requesting a call back with results of her sleep study. Contact:[phone] * Telephone Encounter - Svitlana Green RN - 05/20/2023 11:18 AM CDT Call placed to Lisa in sleep lab. Report is in draft form still. Pt aware and will check back in 1 week if we have not called her. Pt requesting report be sent to Dr Beasley as well. I told pt to ask us to do that when we call her results so it does not get missed. * Telephone Encounter - Nikki Palomo - 05/20/2023 10:53 AM CDT Pt requesting a call back with results of her sleep study. Contact:[phone] documented in this encounter Plan of Treatment Not on file documented as of this encounter Visit Diagnoses Not on filedocumented in this encounter Care Teams Protector Plate Attacher Relationship Specialty Start Date End Date Rinku Beasley MD [address] [place], [place] [id number] PCP - General 09/08/19 documented as of this encounter
--- OUTSIDE RECORDS SUMMARY | 2024-10-06 05:36 | XMS_ITS | Encounter Summary ---
Author Organization [facility] Address [address] [address] Care Team Providers Care Personal Injury Legal Assistant Name Role Phone Rinku Beasley MD Primary Care Provider [phone] Reason for Referral * Cardiology - Closed Specialty Diagnoses / Procedures Referred By Contac t Referred To Contact Diagnoses Paroxysmal atrial fibrillation (CMS/HCC) (HCC) Procedures 24 HR Holter Monitor Rinku Beasley MD [address] [place] [address] Phone: tel: fax: Tara Thurman NP [address] [address] Phone: tel: fax: Referral ID Status Reason Start Date Expiration Date Visits Re quested Visits Authorized [id number] Closed 07/13/2022 08/12/2023 1 1 * Cardiology (Routine) - Closed Specialty Diagnoses / Procedures Referred By Contac t Referred To Contact Diagnoses Paroxysmal atrial fibrillation (CMS/HCC) (HCC) Procedures ECG 12 lead Tara Thurman NP [address] [address] Phone: tel: fax: [facility] Referral ID Status Reason Start Date Expiration Date Visits Re quested Visits Authorized [id number] Closed 07/13/2022 08/12/2023 1 1 Reason for Visit * Reason Comments Medication Problem Shortness of Breath Encounter Details Date Type Department Care Team (Late st Contact Info) Description 07/13/2022 11:00 AM CDT Office Visit [facility] Cardiology [address] [place] [phone] Tara Thurman NP [address] [place] [id number] Dyspnea on exertion; Paroxysmal atrial fibrillation (CMS/HCC) (HCC); 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 Social History Tobacco Use Types Packs/Day Years [...] on file 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 Gender Identity Not on file Sexual Orientation Not on file documented as of this encounter Last Filed Vital Signs Vital Sign Reading Time Taken Comments Blood Pressure 122/60 07/13/2022 10:56 AM CDT Pulse 60 07/13/2022 10:56 AM CDT Temperature - - Respiratory Rate - - Oxygen Saturation 98% 07/13/2022 10:56 AM CDT Inhaled Oxygen Concentration - - Weight 107 kg (236 lb) 07/13/2022 10:56 AM CDT Height 160 cm (5' 3 ) 07/13/2022 10:56 AM CDT Body Mass Index 41.81 07/13/2022 10:56 AM CDT documented in this encounter Progress Notes * Tara Thurman NP - 07/13/2022 11:00 AM CDT [facility] Cardiology [address] [facility] [address] [place] [id number] Date of Visit: 07/13/2022 Patient ID: Lluvia Castaneda 1950 Chief Complaint Patient presents with Medication Problem Shortness of Breath Lluvia Castaneda is a 72 y.o. female who is an established patient of Dr. Tee with a history of atrial fibrillation and mild mitral valve regurgitation coming to the office for complaint of dyspnea on exertion. History of Present Illness: Lluvia Castaneda is a 72 y.o. female who presents for follow up [...] 06/07/2021 restoring sinus rhythm. Following cardioversion and methodist of sinus rhythm she felt much better. We began the process of we weaning down medications. Amiodarone was reduced to 200 mg daily. 04/26/[address] Tee: Patient returns for scheduled six- month appointment. Her primary care as reduce the amiodarone dosage to 100 mg daily. She continues to take systemic anticoagulation with apixaban. The patient seems to be quite stable and is doing well. She states that the PCP reduced her amiodarone dosage because she was bradycardic with heart rates in the 40s. She didnot have any syncopal or near syncopal events however. In addition to this spironolactone was addedto her regimen for additional antihypertensive benefit. 07/13/2022 office visit with LOGGING OPERATIONS INSPECTOR: She is here to discuss dyspnea on exertion which her PCP has been working up. In the spring time to early summer she noticed becoming dyspneic more easily with her regular activity. The shortness of breath can be mild to severe depending on the activity she is doing. Going up stairs makes her breathless. Her resting heart rate is in the 50s and 60s. She checked itafter going up stairs and it was 74. She feels a very mild pressure on the left side of the chest when she gets short of breath but she has had this and states this has not worsened. She denies edemaor cough. She denies orthopnea or PND. About a month ago she reduced amiodarone to half tablet every other day. PCP has done a chest x-ray, echo and PFTs. One part of the PFT test told her she may have asthma but otherwise she was told the PFT and echo were normal. 12-lead ECG performed in the office today was independently interpreted by me and showed sinus bradycardia, otherwise normal intervals, rate 49 beats per minute. Records that I personally reviewed on the day of this visit include: (the interpretation is outlined in the HPI above) 04/26/[address] Tee I have also reviewed: allergies, current medications, past family history, past medical history, past social history, past surgical history and problem list Medical History: Past Medical History: Diagnosis Date Hypertension No past surgical history on file. Social History Tobacco Use Smoking Status Never Smokeless Tobacco Never Social History Tobacco Use Smoking status: Never Smokeless tobacco: Never Substance and Sexual Activity Drug use: Never Sexual activity: None Alcohol Use: Not on file No family history on file. Review of Systems Constitutional: Positive for malaise/fatigue and weight gain. Negative for diaphoresis, fever and weight loss. HENT: Negative for hearing loss. Eyes: Negative for visual disturbance. Cardiovascular: Negative for chest pain, claudication, leg swelling, orthopnea, palpitations, paroxysmal nocturnal dyspnea and syncope. Respiratory: Positive for shortness of breath. Negative for cough, hemoptysis, snoring and wheezing. Hematologic/Lymphatic: Bruises/bleeds easily. Skin: Negative for poor wound healing and rash. Musculoskeletal: Positive for joint pain. Negative for myalgias. Gastrointestinal: Positive for heartburn. Negative for nausea and vomiting. Genitourinary: Negative for hematuria. Neurological: Negative for dizziness, headaches and light-headedness. Psychiatric/Behavioral: Negative for depression. The patient is not nervous/anxious. Vital Signs: BP 122/60 (BP Location: Right arm, Patient Position: Sitting) Pulse 60 Ht 160 cm (5' 3 ) Wt 107 kg (236 lb) SpO2 98% BMI 41.81 kg/m?? Physical Exam Constitutional: General: She is not in acute distress. Appearance: She is well-developed. HENT: Head: Normocephalic and atraumatic. Nose: Comments: Wearing a mask Eyes: General: No scleral icterus. Conjunctiva/sclera: Conjunctivae normal. Neck: Vascular: No JVD. Trachea: No tracheal deviation. Cardiovascular: Rate and Rhythm: Normal rate and regular rhythm. Heart sounds: Normal heart sounds. No murmur [...] by mouth daily , Disp: , Rfl: amiodarone (PACERONE) 200 mg tablet, Take 1 tablet (200 mg total) by mouth daily (Patient taking differently: Take 100 mg by mouth every other day), Disp: 30 tablet, Rfl: 11 cholecalciferol (VITAMIN D-3) 35220 unit capsule, Take 1 Units by mouth daily, Disp: , Rfl: cranberry fruit extract (CRANBERRY ORAL), Take by mouth, Disp: , Rfl: diphenhydrAMINE (BENADRYL) 25 mg capsule, Take 25 mg by mouth nightly as needed for itching, Disp: , Rfl: Eliquis 5 mg tablet, TAKE 1 TABLET (5 MG) BY ORAL ROUTE 2 TIMES PER DAY, Disp: , Rfl: losartan (COZAAR) 50 mg tablet, Take 25 mg by mouth daily, Disp: , Rfl: metoprolol tartrate (LOPRESSOR) 50 mg immediate release tablet, Take 50 mg by mouth 2 (two) times aday , Disp: , Rfl: omeprazole (PriLOSEC) 40 mg capsule, Take 40 mg by mouth daily, Disp: , Rfl: spironolactone (ALDACTONE) 50 mg tablet, Take 50 mg by mouth daily, Disp: , Rfl: TURMERIC ORAL, Take by mouth, Disp: , Rfl: vitamin B complex capsule, Take 1 capsule by mouth daily, Disp: , Rfl: zinc gluconate 50 mg tablet, Take 50 mg by mouth daily, Disp: , Rfl: acidophilus-pectin, citrus 100 million cell-10 mg capsule, Take by mouth (Patient not taking: Reported on 07/13/2022), Disp: , Rfl: furosemide (LASIX) 20 mg tablet, Take 20 mg by mouth daily (Patient not taking: Reported on 07/13/2022), Disp: , Rfl: No results found for: POTASSIUM, BUNSER, CREATININE, CHOL, TRIG, LDL, LDLCALC, HDL No results found for: WBC, HGB, HCT, MCV, PLT No results found for this or any previous visit (from the past 4 hour(s)). 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 PCP has performed testing to evaluate this but I do not have those results available to me at the time of this visit. I will have my staff requests these and review the results with Dr. Tee which the patient reports include a chest x-ray, echocardiogram and PFT. Differential diagnosis includes diastolic heart failure, worsening mitral valve regurgitation, amiodarone pulmonary toxicity, dyspnea as an anginal equivalent, or suppression of normal heart rate variability by the amiodarone. ECG performed in the office today shows sinus bradycardia . I will place a 24 hour Holter monitor and advised her to be active while she is wearing it and we will check her heart rate variability with this. With the low dose of amiodarone she takes and a reported normal PFT, my suspicion for amiodarone pulmonary toxicity is low. After getting the results of her Holter monitor and reviewing her test results with Dr. Tee, we willmake further recommendations. 07/13/2022 Tara Thurman ANP- Nurse Practitioner with [facility] Cardiology This note is dictated and transcribed using zSoup Direct Software. Airfield Operations Specialist variancesmay occur. Despite proofreading, typographical errors may occur. documented in this encounter Plan of Treatment Not on file documented as of this encounter Procedures Procedure Name Priority Date/Time Associated Diagnosis Comments ECG 12-LEAD Routine 07/13/2022 Paroxysmal atrial fibrillation (CMS/HCC) (HCC) documented in this encounter Results * 24 HR Holter Monitor (07/13/2022 11:56 AM CDT) Anatomical Region Laterality Modality Other Narrative 07/18/2022 3:34 PM CDT AMBULATORY PEOPLESOFT CONSULTANT REPORT Patient Name: Lluvia Castaneda Date of : 1950 ?? Requesting Physician: ??Dr. Tee Date of interpretation: 07/18/22 Type of monitor : ??24 hour Holter monitor Date of the study/Enrollment period: ??07/13/2022 Indication: ??Paroxysmal atrial fibrillation Quality of the study: ??Fair, significant artifact was seen on some rhythm strips Interpretation: ??Underlying rhythm is sinus rhythm, heart rate ranges between 50 beats per minute to 111 beats per minute, average heart rate 65 beats per minute. ??No atrial fibrillation or flutter was seen. ??Occasional supraventricular ectopy was seen in the form of isolated PACs and couplets with a burden of 0.11% for the duration of the study. ??Rare PVCs were noted. ??One short 3 beat run of supraventricular tachycardia was noted. ?? Patient's reported symptoms of shortness of breath while carrying grocery, walking up stairs and walking on the treadmill correlated with significant artifact on the rhythm strip probable underlying sinus rhythm. Conclusions: Underlying rhythm is sinus rhythm, average heart rate 65 beats per minute. Occasional supraventricular ectopy was seen in the form of isolated PACs, couplets with a burden of 0.11% for the duration of the study; rare PVCs. One short 3 beat run of supraventricular tachycardia. ?? Patient's reported symptoms of shortness of breath while carrying grocery, walking up stairs and walking on the treadmill correlated with significant artifact on the rhythm strip with probable underlying sinus rhythm. ?? Clinical correlation. Voice recognition software was used to complete this document, therefore, playback operator variances may occur. Tl Brown MD, [facility] 07/18/22 Procedure Note Tl rBown MD - 07/18/2022 AMBULATORY PEOPLESOFT CONSULTANT REPORT Patient Name: Lluvia Castaneda Date of : 1950 Requesting Physician: Dr. Tee Date of interpretation: 07/18/22 Type of monitor : 24 hour Holter monitor Date of the study/Enrollment period: 07/13/2022 Indication: Paroxysmal atrial fibrillation Quality of the study: Fair, significant artifact was seen on some rhythmstrips Interpretation: Underlying rhythm is sinus rhythm, heart rate rangesbetween 50 beats per minute to 111 beats per minute, average heart rate 65beats per minute. No atrial fibrillation or flutter was seen. Occasionalsupraventricular ectopy was seen in the form of isolated PACs and coupletswith a burden of 0.11% for the duration of the study. Rare PVCs werenoted. One short 3 beat run of supraventricular tachycardia was noted.Patient's reported symptoms of shortness of breath while carrying grocery,walking up stairs and walking on the treadmill correlated with significantartifact on the rhythm strip probable underlying sinus rhythm. Conclusions: Underlying rhythm is sinus rhythm, average heart rate 65 beats perminute. Occasional supraventricular ectopy was seen in the form of isolated PACs,couplets with a burden of 0.11% for the duration of the study; rarePVCs. One short 3 beat run of supraventricular tachycardia. Patient's reported symptoms of shortness of breath while carrying grocery,walking up stairs and walking on the treadmill correlated with significantartifact on the rhythm strip with probable underlying sinus rhythm.Clinical correlation. Voice recognition software was used to complete this document, therefore,playback operator variances may occur. Tl Brown MD, [facility] 07/18/22 Tara Thurman NP [facility] C[facility] PROCE DURES Final Result * ECG 12 lead (07/13/2022) Tara Thurman NP ECG ORDERABLES Edited Re sult - Final documented in this encounter Visit Diagnoses Diagnosis Dyspnea on exertion Other dyspnea and respiratory abnormality Paroxysmal atrial fibrillation (CMS/HCC) (HCC) Atrial fibrillation [facility] current use of amiodarone Paroxysmal atrial fibrillation (CMS/HCC) (HCC) Atrial fibrillation documented in this encounter Care Teams Personal Injury Legal Assistant Relationship Specialty Start Date End Date Rinku Beasley MD [address] [place], [place] [id number] PCP - General 09/08/19 documented as of this encounter
--- OUTSIDE RECORDS SUMMARY | 2024-10-06 05:36 | XMS_ITS | Encounter Summary ---
Author Organization [facility] Address [address] [facility] [address] [facility] [address] [place] [address] Care Team Providers Care Physician Representative Name Role Phone Rinku Beasley MD Primary Care Provider [phone] Reason for Visit * Reason Comments Atrial Fibrillation 6 mo f/u Encounter Details Date Type Department Care Team (Late st Contact Info) Description 04/26/2022 11:30 AM CDT Office Visit 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 Gender Identity Not on file Sexual Orientation Not on file documented as of this encounter Last Filed Vital Signs Vital Sign Reading Time Taken Comments Blood Pressure 110/70 04/26/2022 11:30 AM CDT Pulse 60 04/26/2022 11:30 AM CDT Temperature - - Respiratory Rate - - Oxygen Saturation 97% 04/26/2022 11:30 AM CDT Inhaled Oxygen Concentration - - Weight 109.8 kg (242 lb) 04/26/2022 11:30 AM CDT Height 160 cm (5' 3 ) 04/26/2022 11:30 AM CDT Body Mass Index 42.87 04/26/2022 11:30 AM CDT documented in this encounter Progress Notes * Saul Tee MD - 04/26/2022 11:30 AM CDT [facility] FOLLOW UP 04/26/2022 Lluvia Castaneda is a 71 y.o. female [...] 06/07/2021 restoring sinus rhythm. Following cardioversion and pentecostal of sinus rhythm she felt much better. We began the process of we weaning down medications. Amiodarone was reduced to 200 mg daily. Patient returns for scheduled six-month appointment. Her primary care as reduce the amiodarone dosage to 100 mg daily. She continues to take systemic anticoagulation with apixaban. The patient seems to be quite stable and is doing well. She states that the PCP reduced her amiodarone dosage because she was bradycardic with heart rates in the 40s. She did not have any syncopal or near syncopal events however. In addition to this spironolactone was added to her regimen for additional antihypertensive benefit. REVIEW OF SYSTEMS General ROS: negative for [...] ??? acetaminophen (TYLENOL) 325 mg tablet, Take 500 mg by mouth daily , Disp: , Rfl: ??? acidophilus-pectin, citrus 100 million cell-10 mg capsule, Take by mouth, Disp: , Rfl: ??? amiodarone (PACERONE) 200 mg tablet, Take 1 tablet (200 mg total) by mouth daily (Patient taking differently: Take 100 mg by mouth daily), Disp: 30 tablet, Rfl: 11 ??? cholecalciferol (VITAMIN D-3) 43392 unit capsule, Take 1 Units by mouth [...] by mouth daily, Disp: , Rfl: ??? spironolactone (ALDACTONE) 50 mg tablet, Take 50 mg by mouth daily, Disp: , Rfl: ??? TURMERIC ORAL, Take [...] for component: LABALBU PHYSICAL EXAM Vitals BP 110/70 (BP Location: Left arm, Patient Position: Sitting) Pulse 60 Ht 160 cm (5' 3 ) Wt 109.8 kg (242 lb) SpO2 97% BMI 42.87 kg/m?? Physical Examination: General appearance - alert, [...] atrial fibrillation Obesity Mild mitral regurgitation PLAN/RECOMMENDATIONS No change in current medical regimen Follow-up 6 months or p.r.n. Saul Tee MD documented in this encounter Plan of Treatment Not on file documented as of this encounter Visit Diagnoses Diagnosis Paroxysmal atrial fibrillation (CMS/HCC) (HCC)- Primary Atrial fibrillation documented in this encounter Discontinued Medications Medication Sig Discontinue Reason Start Date End Da te potassium chloride ER 10 mEq CR tablet Take 10 mEq by mouth daily Therapy completed 05/23/2021 04/26/2022 alendronate (FOSAMAX) 70 mg tablet 1 tablet once a week Discontinued by another clinician 04/26/2022 documented as of this encounter Historical Medications * This list may reflect changes made after this encounter. spironolactone (ALDACTONE) 50 mg tablet Take 1 tablet (50 mg total) by mouth daily 04/23/2022 added in this encounter Care Teams Physician Representative Relationship Specialty Start Date End Date Rinku Beasley MD [address] [place] [address] PCP - General 09/08/19 documented as of this encounter
--- OUTSIDE RECORDS SUMMARY | 2024-10-06 05:36 | XMS_ITS | Encounter Summary ---
Author Organization [facility] Address [address] [place] [address] Care Team Providers Care Telegraphic Typewriter Mechanic Name Role Phone Unavailable Primary Care Provider Unavailabl e Encounter Details Date Type Department Care Team (Late st Contact Info) Description 05/06/2008 12:01 AM CDT - 05/06/2008 11:59 PM CDT Hospital Encounter [facility] Tuan Nur MD [address] [place] [address] Social History Tobacco Use Types Packs/Day Years Used Date Smoking Tobacco: Never Assessed Comments Unknown Sex and Gender Information Value Date Recorded Sex Assigned at Not on file 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
--- OUTSIDE RECORDS SUMMARY | 2024-10-06 05:36 | XMS_ITS | Encounter Summary ---
Author Organization [facility] Healthcare Address [address] [place] [address] Care Team Providers Care Recorder Gravity Prospecting Name Role Phone Unavailable Primary Care Provider Unavailabl e Encounter Details Date Type Department Care Team (Late st Contact Info) Description 01/15/2008 8:01 AM CDT - 01/15/2008 11:59 PM CDT Hospital Encounter [facility] Tuan Nur MD [address] [place] [address] Social History Tobacco Use Types Packs/Day Years Used Date Smoking Tobacco: Never Assessed Comments Unknown Sex and Gender Information Value Date Recorded Sex Assigned at Not on file 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
--- OUTSIDE RECORDS SUMMARY | 2024-10-06 05:36 | XMS_ITS | Encounter Summary ---
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
--- OUTSIDE RECORDS SUMMARY | 2024-10-06 05:36 | XMS_ITS | Encounter Summary ---
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 Gender Identity Not on file Sexual Orientation Not on file documented as of this encounter Plan of Treatment Not on file documented as of this encounter Procedures Procedure Name Priority Date/Time Associated Diagnosis Comments SCAN - LABS 07/12/2023 documented in this encounter Results * SCAN - LABS (07/12/2023) us Provider Scanning Final Result documented in this encounter Visit Diagnoses Not on filedocumented in this encounter Care Teams Land Resource Specialist Relationship Specialty Start Date End Date Rinku Beasley MD [address] [place] [address] PCP - General 09/08/19 documented as of this encounter
--- OUTSIDE RECORDS SUMMARY | 2024-10-06 05:36 | XMS_ITS | Encounter Summary ---
Author Organization [facility] Address [address] [facility] [address] [place] [address] Care Team Providers Care Yarn Salvager Name Role Phone Rinku Beasley MD Primary Care Provider [phone] Reason for Referral * Diagnostic Imaging (Routine) - Closed Specialty Diagnoses / Procedures Referred By Contac t Referred To Contact Diagnoses Dyspnea on exertion Procedures NM MPI SPECT (Rest and/or Stress) Multiple Studies Reed Todd NP [address] [address] Phone: tel: fax: [facility] Referral ID Status Reason Start Date Expiration Date Visits Re quested Visits Authorized [id number] Closed 07/26/2022 08/25/2023 1 1 Encounter Details Date Type Department Care Team (Late st Contact Info) Description 07/19/[address] [facility] Cardiology [address] [address] Reed Todd NP [address] [facility] [address] [address] Social History Tobacco Use Types Packs/Day Years [...] on file Legal Sex Female 12:33 AM JELLY FILTER TENDER Gender Identity Not on file Sexual Orientation Not on file documented as of this encounter Miscellaneous Notes * Telephone Encounter - Meaghan Banda RN - 07/30/2022 10:06 AM JELLY FILTER TENDER Spoke with pt, reviewed message below from CT. Pt scheduled for Lexiscan. Instructions reviewed, ptverbalizes understanding. Y FILTER TENDER * Telephone Encounter - Meaghan Banda RN - 07/27/2022 9:41 AM CDT LM on VM with response from CT and request to return call to schedule stress test. * Addendum Note - Reed Todd NP - 07/26/2022 5:32 PM CDTAddended by: REED TODD on: 07/26/2022 05:32 PM Modules accepted: Orders * Telephone Encounter - Reed Todd NP - 07/26/2022 5:28 PM CDT Please call Ms. Jones to let her know I got her test results from Dr. Beasley and I discussed everything with Dr. Tee. All of the test results so far look good. Dr. Tee and I recommend a stress test to see if her dyspnea is an anginal equivalent. Because of her degree of dyspnea, I do not think she would be able to ambulate on a treadmill so we should order a Lexiscan nuclear stress test. I placed the order in epic. Thank you. * Telephone Encounter - Meaghan Banda RN - 07/19/2022 9:08 AM CDT LM on VM with pt, reviewed results below from CT. Advised to return call with any questions. * Telephone Encounter - Meaghan Banda RN - 07/19/2022 9:08 AM CDT ----- Message from Reed Todd NP sent at 07/19/2022 8:53 AM CDT ----- Please let the patient know I reviewed the results of her Holter monitor. The results is normal. She had appropriate elevation of her heart rate with activity. She had a very small number of premature atrial contractions which is normal. There was no atrial fibrillation or other abnormal heartbeatsseen. Please let her know I am still waiting to get her other test results from Dr. Beasley's office. Once Iget these I will review everything with Dr. Tee and let her know if there are any other testshe would recommend. Thank you. documented in this encounter Plan of Treatment Not on file documented as of this encounter Results * NM MPI SPECT (Rest and/or Stress) Multiple Studies (08/09/2022 11:04 AM JELLY FILTER TENDER) Anatomical Region Laterality Modality Body N/A Nuclear Medicine 08/09/2022 9:09 AM JELLY FILTER TENDER Narrative 08/09/2022 1:27 [address] [facility] Cardiology [address] [facility] [address], [place] [address] [address] [facility] [address], [place] [address] P:[phone] P:[phone] MPI Imaging Report Patient Name: LLUVIA JONES S : 1950 Study Date: 08/09/2022 9:09:57 AM Gender: F Tech: JOSSY BLANCAS Location: [place] Ref.Provider: PEERZ, REED Height(Cm): 160 BSA: Weight(Kg): 107 BMI: 41.8Order Provider: REED TODD Physician: Referring Physician: Dr. Beasley. HCG Physician: Saul Tee M.D.,[place] Interpreting Physician: Meredith Oneil M.D. Stress Supervision: Saul Tee M.D.,[place] Procedures: Myocardial perfusion imaging with Tc99M Sestamibi SPECT at rest and stress post regadenoson (Lexiscan) infusion. Indications: Paroxysmal Atrial Fibrillation, Hypertension, and MICHAEL. Findings: Procedural Findings: One day rest/stress was used. Tc99m Sestamibi injected IV at rest was 8.7 millicuries. 25.9 millicuries of Tc99M Sestamibi injected IV during Lexiscan stress. Lexiscan 0.4mg given IV over 10 seconds with low level exercise: 1.4 MPH. Patient had no symptoms during stress test. Baseline heart rate was 67 BPM. Maximum Heart Rate Achieved was: 106 BPM. Baseline blood pressure was 108/76 mmHg. Post Stress Blood Pressure was 114/72 mmHg. Termination: Protocol complete. Resting ECG: Normal sinus rhythm, normal ECG. Post ECG: No diagnostic ST changes. Perfusion Findings: Normal perfusion imaging. No definite fixed or reversible defects. Technical quality of study is excellent. Prone imaging was performed. Left ventricle cavity size at rest is normal. Left ventricle cavity size with stress is unchanged. A TID of 0.82 was automatically calculated. defect 1: Size is small. Severity is mild. Location of defect is in the basal anterior segment, mid anterior segment and apical anterior segment. Reversibility is not present, defect is fixed. Type of defect is most likely attenuation artifact. Artifact noted from breast attenuation. Resolved with prone imaging. LV Function: Global left ventricular function is normal. Left ventricular ejection fraction is 63 %. Conclusions: Normal sinus rhythm, normal ECG. No diagnostic ST changes. Global left ventricular function is normal. Left ventricular ejection fraction is 63 %. Myocardial perfusion imaging is normal. Electronically Signed By: Meredith Oneil MD 2022-08-09 13:14:44 JELLY FILTER TENDER Electronically Signed By: Saul Tee MD, [facility] 2022-08-09 13:27:13 JELLY FILTER TENDER Procedure Note Saul Tee MD - 08/09/2022 [facility] Cardiology [address], [place] [address] [address], [place] [address] P:[phone] P:[phone] MPI Imaging Report Patient Name: LLUVIA JONES SPatient ID: [id number] : [id number] Date: 08/09/2022 9:09:57 AM Gender: FAccession #: [id number] [facility] [place] Ref.Provider: REED TODDHeight(Cm): 160 BSA: Weight(Kg): 107 BMI: 41.8Order Provider: REED TODD Physician: Referring Physician: Dr. Beasley. HCG Physician: Saul Tee M.D.,F.A.C.CKamron Interpreting Physician: Meredith Oneil M.D. Stress Supervision: Saul Tee M.D.,F.A.C.C. Procedures: Myocardial perfusion imaging with Tc99M Sestamibi SPECT at rest and stresspost regadenoson (Lexiscan) infusion. Indications: Paroxysmal Atrial Fibrillation, Hypertension, and MICHAEL. Findings: Procedural Findings: One day rest/stress was used. Tc99m Sestamibi injected IV at rest was 8.7millicuries. 25.9 millicuries of Tc99M Sestamibi injected IV during Lexiscan stress.Lexiscan 0.4mg given IV over 10 seconds with low level exercise: 1.4 MPH. Patient had nosymptoms during stress test. Baseline heart rate was 67 BPM. Maximum Heart Rate Achievedwas: 106 BPM. Baseline blood pressure was 108/76 mmHg. Post Stress Blood Pressure ppc678/72 mmHg. Termination: Protocol complete. Resting ECG: Normal sinus rhythm, normal ECG. Post ECG: No diagnostic ST changes. Perfusion Findings: Normal perfusion imaging. No definite fixed or reversible defects.Technical quality of study is excellent. Prone imaging was performed. Left ventricle cavitysize at rest is normal. Left ventricle cavity size with stress is unchanged. A TID of 0.82was automatically calculated. defect 1: Size is small. Severity is mild. Location of defect is in the basalanterior segment, mid anterior segment and apical anterior segment. Reversibility is notpresent, defect is fixed. Type of defect is most likely attenuation artifact. Artifact notedfrom breast attenuation. Resolved with prone imaging. LV Function: Global left ventricular function is normal. Left ventricular ejectionfraction is 63 %. Conclusions: Normal sinus rhythm, normal ECG. No diagnostic ST changes. Global left ventricular function is normal. Left ventricular ejectionfraction is 63 %. Myocardial perfusion imaging is normal. Electronically Signed By: Meredith Oneil MD 2022-08-09 13:14:44 JELLY FILTER TENDER Electronically Signed By: Saul Tee MD, [facility] 2022-08-09 13:27:13 JELLY FILTER TENDER Reed Todd EXTENSION SERVICE SPECIALIST IMG NM PROCEDURES Final R esult documented in this encounter Visit Diagnoses Diagnosis Dyspnea on exertion- Primary Other dyspnea and respiratory abnormality Dyspnea on exertion Other dyspnea and respiratory abnormality documented in this encounter Care Teams Yarn Salvager Relationship Specialty Start Date End Date Rinku Beasley MD [address] [place], [place] [id number] PCP - General 09/08/19 documented as of this encounter
--- OUTSIDE RECORDS SUMMARY | 2024-10-06 05:36 | XMS_ITS | Encounter Summary ---
Author Organization [facility] Address [address] 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 Gender Identity Not on file Sexual Orientation Not on file documented as of this encounter Miscellaneous Notes * Telephone Encounter - Svitlana Green RN - 08/14/2022 1:[address] result reviewed with pt per CT ONAL ACCOUNTS SALES * Telephone Encounter - Valdo Adrian - 08/14/2022 12:59 PM CST Pt requesting stress test results from 08/09.Thank you Contact:[phone] ONAL ACCOUNTS SALES documented in this encounter Plan of Treatment Not on file documented as of this encounter Visit Diagnoses Not on filedocumented in this encounter Care Teams Dice Dealer Relationship Specialty Start Date End Date Rinku Beasley MD [address] [place], [place] [id number] PCP - General 09/08/19 documented as of this encounter
--- OUTSIDE RECORDS SUMMARY | 2024-10-06 05:36 | XMS_ITS | Encounter Summary ---
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 Gender Identity Not on file Sexual Orientation Not on file documented as of this encounter Plan of Treatment Not on file documented as of this encounter Procedures Procedure Name Priority Date/Time Associated Diagnosis Comments CARDIOLOGY DOCUMENT SCAN Routine 05/04/2021 documented in this encounter Results * SCAN - CARDIOLOGY (05/04/2021) Anatomical Region Laterality Modality Other Historical Provider [facility] PAMELA GRAHAM Final Result documented in this encounter Visit Diagnoses Not on filedocumented in this encounter Care Teams Disc Jockey Relationship Specialty Start Date End Date Rinku Beasley MD [address] [place], [place] [id number] PCP - General 09/08/19 documented as of this encounter
--- OUTSIDE RECORDS SUMMARY | 2024-10-06 05:36 | XMS_ITS | Encounter Summary ---
Author Organization [facility] Address [address] [facility] [address] [place] [address] Care Team Providers Care Plant Control Aide Name Role Phone Rinku Beasley MD Primary Care Provider [phone] Encounter Details Date Type Department Care Team (Late st Contact Info) Description 06/07/2021 Orders Only [facility] Cardiology [address] 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 Gender Identity Not on file Sexual Orientation Not on file documented as of this encounter Plan of Treatment Not on file documented as of this encounter Procedures Procedure Name Priority Date/Time Associated Diagnosis Comments CARDIOLOGY DOCUMENT SCAN Routine 06/07/2021 documented in this encounter Results * SCAN - CARDIOLOGY (06/07/2021) Anatomical Region Laterality Modality Other Saul Tee MD [facility] PROC EDURES Final Result documented in this encounter Visit Diagnoses Not on filedocumented in this encounter Care Teams Plant Control Aide Relationship Specialty Start Date End Date Rinku Beasley MD [address] [place] [id number] PCP - General 09/08/19 documented as of this encounter
--- OUTSIDE RECORDS SUMMARY | 2024-10-06 05:36 | XMS_ITS | Encounter Summary ---
Author Organization [facility] Healthcare Address [address] [place] [address] Care Team Providers Care Central Melt Specialist Name Role Phone Unavailable Primary Care Provider Unavailabl e Encounter Details Date Type Department Care Team (Late st Contact Info) Description 01/13/2009 12:01 AM CDT - 01/13/2009 11:59 PM CDT Hospital Encounter [facility] Tuan Nur MD [address] [place] [address] Thoracic or lumbosacral neuritis or radiculitis Social History Tobacco Use Types Packs/Day Years Used Date Smoking Tobacco: Never Assessed Comments Unknown Sex and Gender Information Value Date Recorded Sex Assigned at Not on file Legal 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
--- OUTSIDE RECORDS SUMMARY | 2024-10-06 05:36 | XMS_ITS | Encounter Summary ---
Author Organization [facility] Address [address] [facility] [address] [place] [address] Care Team Providers Care Senior Energy Consultant Name Role Phone Rinku Beasley MD Primary Care Provider Reason for Visit * Reason Comments Follow-up 2 week follow up on a-fib, LV systolic dysfunction, dyslipidemia Encounter Details Date Type Department Care Team (Late st Contact Info) Description 06/06/2021 1:30 PM CDT Office Visit [facility] Cardiology [address] [facility] 162 [facility] 102 [place] [id number] Saul Tee MD [address] [facility] 102 [place] [address] Persistent atrial fibrillation (HCC) (Primary Dx) Social History Tobacco Use [...] on file 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 Gender Identity Not on file Sexual Orientation Not on file documented as of this encounter Last Filed Vital Signs Vital Sign Reading Time Taken Comments Blood Pressure 126/88 06/06/2021 1:01 PM CDT Pulse 105 06/06/2021 1:01 PM CDT Temperature - - Respiratory Rate - - Oxygen Saturation 99% 06/06/2021 1:01 PM CDT Inhaled Oxygen Concentration - - Weight 101.2 kg (223 lb) 06/06/2021 1:01 PM CDT Height 160 cm (5' 3 ) 06/06/2021 1:01 PM CDT Body Mass Index 39.5 06/06/2021 1:01 PM CDT documented in this encounter Progress Notes * Saul Tee MD - 06/06/2021 1:30 PM CDT [facility] FOLLOW UP 06/06/2021 Lluvia Castaneda is a 70 y.o. female who presents for follow up [...] is obesity with a BMI of 39.5. On return to the office today she is feeling reasonably well she still notices some MICHAEL that is more than what she had experienced in the past due to being overweight. Her electrocardiogram demonstrates persistent atrial fibrillation. She is scheduled for a electrical cardioversion tomorrow morning REVIEW OF SYSTEMS General ROS: negative for [...] Disp: , Rfl: ??? cholecalciferol (VITAMIN D-3) 68523 unit capsule, Take 1 Units by mouth [...] for component: LABALBU PHYSICAL EXAM Vitals BP 126/88 (BP Location: Right arm, Patient Position: Sitting) Pulse 105 Ht 160 cm (5' 3 ) Wt 101.2 kg (223 lb) SpO2 99% BMI 39.50 kg/m?? Physical Examination: General appearance [...] atrial fibrillation Obesity Mild mitral regurgitation PLAN/RECOMMENDATIONS Proceed with DC cardioversion as is scheduled for tomorrow Saul Tee MD documented in this encounter Miscellaneous Notes * Addendum Note - Nilda Steve MA - 06/06/2021 1:30 PM CDTAddended by: NILDA STEVE on: 06/08/2021 12:27 PM Modules accepted: Orders documented in this encounter Plan of Treatment Not on file documented as of this encounter Procedures Procedure Name Priority Date/Time Associated Diagnosis Comments ECG 12-LEAD Routine 06/06/2021 Persistent atrial fibrillation (HCC) documented in this encounter Results * ECG 12 lead (06/06/2021) Saul Tee MD ECG ORDERABLES Final Re sult documented in this encounter Visit Diagnoses Diagnosis Persistent atrial fibrillation (HCC)- Primary Atrial fibrillation documented in this encounter Discontinued Medications Medication Sig Discontinue Reason Start Date End Da te ascorbic acid (vitamin C) 1,000 mg tablet Take 1,000 mg by mouth daily Therapy completed 06/06/2021 traMADol-acetaminophen (ULTRACET) 37.5-325 mg per tablet as needed Therapy completed 06/06/2021 documented as of this encounter Historical Medications * This list may reflect changes made after this encounter. zinc gluconate 50 mg tablet Take 50 mg by mouth daily 05/02/2023 added in this encounter Care Teams Senior Energy Consultant Relationship Specialty Start Date End Date Rinku Beasley MD [address] [place] [address] PCP - General 09/08/19 documented as of this encounter
--- OUTSIDE RECORDS SUMMARY | 2024-10-06 05:36 | XMS_ITS | Encounter Summary ---
Author Organization [facility] Address [address] [place] [address] Care Team Providers Care Vacuum Furnace Operator Name Role Phone Rinku Beasley MD Primary Care Provider [phone] Reason for Visit * Reason Comments Atrial Fibrillation new on-set per PCP Encounter Details Date Type Department Care Team (Late st Contact Info) Description 05/25/2021 9:00 AM CDT Office Visit [facility] Cardiology [address] [facility] [address] [place] [address] Tara Thurman NP [address] [facility] [address] [place] [address] New onset atrial fibrillation (CMS/HCC) (HCC) (Primary Dx); Chronic anticoagulation; Mild left ventricular systolic dysfunction; Mild mitral valve regurgitation; History of COVID-19; Essential hypertension; Dyslipidemia Social History Tobacco Use Types Packs/Day Years [...] on file 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 Gender Identity Not on file Sexual Orientation Not on file documented as of this encounter Last Filed Vital Signs Vital Sign Reading Time Taken Comments Blood Pressure 98/60 05/25/2021 8:46 AM CDT Pulse 77 05/25/2021 8:46 AM CDT Temperature - - Respiratory Rate - - Oxygen Saturation 98% 05/25/2021 8:46 AM CDT Inhaled Oxygen Concentration - - Weight 99.8 kg (220 lb) 05/25/2021 8:46 AM CDT Height 160 cm (5' 3 ) 05/25/2021 8:46 AM CDT Body Mass Index 38.97 05/25/2021 8:46 AM CDT documented in this encounter Progress Notes * Tara Thurman NP - 05/25/2021 9:00 AM CDT Images from the original note were not included. [facility] Cardiology [address] [place] [address] Date of Visit: 05/25/2021 Patient ID: Lluvia Castaneda 1950 Chief Complaint: Lluvia Castaneda is a 70 y.o. female who comes to the office for evaluation of new onset atrial fibrillation. She has established care with Dr. Tee here in the office in the spring. History of Present Illness: Lluvia Castaneda is a 70 y.o. female with a past medical history of hypertension, GERD, iron deficiency anemia, hyperlipidemia, osteoporosis, obesity. She had a PCP visit, Dr. Beasley, on 05/03/2021 and was found to be mildly tachycardic with an irregular rhythm. ECG showed atrial fibrillation with RVR, rate [address] Beasley started her on Eliquis and metoprolol and ordered an echocardiogram along with BMP, Mag, TSH. The BMP was unremarkable, magnesium normal at 2.2, TSH in the normal range at 0.54 with a normal free T4, H&H 11.7 and 36.2. Lipid panel showed TC 177, HDL 58, TG 83,LDL 102. Her echo cardiograms showed borderline concentric LVH, mild to moderately depressed LV systolic function with EF calculated 41%, diastolic dysfunction present, global hypokinesis but minor regional variations in the apical septal, apical inferior and apical garza, mild MR, mild TR, PASP 34mmHg. 05/25/2021 office visit with IMAGING SERVICES DIRECTOR: She comes to our office today for new onset atrial fibrillation asdescribed above. In late March she developed a sinus infection that turned into bronchitis. She was coughing a lot, having MICHAEL, sweating, decreased energy. She describes a sensation of pressure in thechest but is not severe. She denies palpitations. She went to PCP, saw the PA, was told her heartbeat was all over the place?? and was given antibiotic. She finished antibiotic 10 days later but symptoms were not improving much so she went back to PCP and was found to be in AFib with RVR. She wasstarted on metoprolol on Eliquis at that time. She went back to PCP 2 weeks later and was started on amiodarone and furosemide (because she mentioned some weight gain) which was just earlier this week. She had COVID in July of 2020 but did not need to be hospitalized. Since having COVID shortnessof breath has not completely resolved and she describes a ???a sense of crowding pressure?? from the sternum around the left side of the chest and thorax to wrap around to the spine. She describes it is just ???not feeling right?? but it is not pain. She still has not completely recovered her sense of taste and smell. 12-lead ECG performed in the office today was independently interpreted by me and showed atrial fibrillation with variable ventricular response, rate 95 beats per minute. Records that I personally reviewed on the day of this visit include: (the interpretation is outlined in the HPI above) 11/17/[address] Tee, 05/03/2021 PCP office note and lab results and ECG, 05/18/2021 echocardiogram report. Today's ECG performed in our office. ECG dated 05/03/2021 was personally reviewed and interpreted by me. I have also reviewed: allergies, current medications, past family history, past medical history, past social history, past surgical history and problem list Review of Systems Constitutional: Positive for diaphoresis, malaise/fatigue and weight gain. Negative for fever and weight loss. HENT: Negative for hearing loss. Eyes: Negative for visual disturbance. Cardiovascular: Positive for dyspnea on exertion. Negative for chest pain, claudication, leg swelling, orthopnea, palpitations, paroxysmal nocturnal dyspnea and syncope. Respiratory: Negative for cough, hemoptysis, snoring and wheezing. Hematologic/Lymphatic: Does not bruise/bleed easily. Skin: Negative for poor wound healing and rash. Musculoskeletal: Negative for joint pain and myalgias. Gastrointestinal: Negative for heartburn, nausea and vomiting. Genitourinary: Negative for hematuria. Neurological: Negative for dizziness, headaches and light-headedness. Psychiatric/Behavioral: Negative for depression. The patient is not nervous/anxious. Vital Signs: BP 98/60 (BP Location: Left arm, Patient Position: Sitting) Pulse 77 Ht 160 cm (5' 3 ) Wt 99.8 kg (220 lb) SpO2 98% BMI 38.97 kg/m?? Physical Exam Constitutional: General: She is not in acute distress. Appearance: She is well-developed. She is obese. HENT: Head: Normocephalic and atraumatic. Nose: Comments: Wearing a mask Eyes: General: No scleral icterus. Conjunctiva/sclera: Conjunctivae normal. Pupils: Pupils are equal, round, and reactive to light. Neck: Vascular: No JVD. Trachea: No tracheal deviation. Cardiovascular: Rate and Rhythm: Normal rate. Rhythm irregular. Heart sounds: Normal heart sounds. No murmur heard. Pulmonary: Effort: Pulmonary effort is normal. No respiratory distress. Breath sounds: Normal breath sounds. Skin: General: Skin is warm and dry. Neurological: Mental Status: She is alert and oriented to person, place, and time. Psychiatric: Mood and Affect: Mood normal. Behavior: Behavior normal. Allergies Allergen Reactions ??? Hydrocodone-Acetaminophen Hives, Itching and Rash ??? Red Dye Rash Itching hives rash, Current Outpatient Medications: ??? acetaminophen (TYLENOL) 325 [...] a day , Disp: , Rfl: ??? ascorbic acid (vitamin C) 1,000 mg tablet, Take 1,000 mg by mouth daily, Disp: , Rfl: ??? cholecalciferol (VITAMIN D-3) 11459 unit capsule, Take 1 Units by mouth [...] mouth daily , Disp: , Rfl: ??? traMADol-acetaminophen (ULTRACET) 37.5-325 mg per tablet, as needed, Disp: , Rfl: ??? TURMERIC ORAL, Take by mouth, Disp: , Rfl: ??? vitamin B complex capsule, Take 1 capsule by mouth daily, Disp: , Rfl: No results found for: POTASSIUM, BUNSER, CREATININE, CHOL, TRIG, LDL, LDLCALC, HDL Assessment: Diagnoses and all orders for this visit: New onset atrial fibrillation (CMS/HCC) (HCC) (Primary) Chronic anticoagulation Mild left ventricular systolic dysfunction Mild mitral valve regurgitation History of COVID-19 Essential hypertension Dyslipidemia Plan/Recommendations: She was diagnosed with atrial fibrillation a few weeks ago. Onset was probably in the month of March. I described atrial fibrillation to the patient and the need for rate control and stroke risk reduction with systemic oral anticoagulation. She has fair rate control currently with metoprolol and amio darone. Amiodarone was started 2 days ago. For now she should continue her Eliquis, amiodarone and metoprolol. She is interested in pursuing a cardioversion to restore sinus rhythm which I recommend.We will plan this to occur after she has been on the amiodarone for 2 weeks and if she is not revert ed back to sinus rhythm with the amiodarone alone, we will perform a cardioversion. I reinforced the importance of not missing any Eliquis. I reviewed bleeding precautions with her she needs to be aware of while being on Eliquis. Her recent echo showed mild LV systolic dysfunction. She should continue the metoprolol, losartan and furosemide. Her recent echo also showed mild mitral valve regurgitation which she is known to have. She has a history of COVID. She describes an ongoing MICHAEL and some chest pressure since that time. What she describes sounds atypical for angina but with the decline in her LV function, we could pursue repeating an ischemic evaluation at a later time. She has a history of hypertension. Continue losartan and metoprolol. She is not hypertensive right now. She also has a history of dyslipidemia. Because she has no known coronary artery disease, her lipidpanel results from 04/17/2021 showed that her lipids are controlled. Return to the office to see Dr. Tee and have ECG on 06/06/21. If she happens to be in sinus rhythm at that time, we will cancel the cardioversion. My total encounter time on 05/25/2021 was 60 minutes which was spent in the activities documented in the note. This includes time spent prior to the visit and after the visit in direct care of the patient. This time does not include time spent in any separately reportable services. ANAY Gatica- Nurse Practitioner with [facility] Cardiology This note is dictated and transcribed using [employer] Software. House Mover Helper variancesmay occur. Despite proofreading, typographical errors may occur. documented in this encounter Miscellaneous Notes * Addendum Note - Dalton Lamb MA - 05/25/2021 9:00 AM CDTAddended by: DALTON LAMB on: 05/25/2021 10:15 AM Modules accepted: Orders documented in this encounter Plan of Treatment Not on file documented as of this encounter Procedures Procedure Name Priority Date/Time Associated Diagnosis Comments ECG 12-LEAD Routine 05/25/2021 New onset atrial fibrillation (CMS/HCC) (HCC) LIPID PANEL Routine 05/05/2021 documented in this encounter Results * ECG 12 lead (05/25/2021) Tara Thurman NP ECG ORDERABLES Final Res ult * Lipid panel (05/05/2021) SCRIBED Cholesterol, Total 177 <200 EXTERNAL LAB SCRIBED HDL 58 >40 EXTERNAL LAB SCRIBED LDL 102 <100 EXTERNAL LAB SCRIBED Triglycerides 83 <150 EXTERNAL LAB Blood specimen (specimen) Historical Provider MD LAB BLOOD ORDERABLES Edit ed Result - Final EXTERNAL LAB documented in this encounter Visit Diagnoses Diagnosis New onset atrial fibrillation (CMS/HCC) (HCC)- Primary Atrial fibrillation Chronic anticoagulation Encounter for long-term (current) use of anticoagulants Mild left ventricular systolic dysfunction Mild mitral valve regurgitation History of COVID-19 Essential hypertension Unspecified essential hypertension Dyslipidemia Other and unspecified hyperlipidemia documented in this encounter Discontinued Medications Medication Sig Discontinue Reason Start Date End Da te losartan (COZAAR) 100 mg tablet Take 50 mg by mouth daily Dose adjustment 09/01/2019 05/25/2021 hydroCHLOROthiazide (HYDRODIURIL) 12.5 mg tablet Take 12.5 mg by mouth daily Alternate therapy 08/30/2019 05/25/2021 omega-3 fatty acids (LOVAZA) 1 gram capsule Take 1,000 mg by mouth daily Therapy completed 05/25/2021 zinc 50 mg tablet Take by mouth Therapy completed 05/25/2021 documented as of this encounter Historical Medications * This list may reflect changes made after this encounter. diphenhydrAMINE (BENADRYL) 25 mg capsule Take 1 tablet/capsule (25 mg total) by mouth nightly as needed for itching TURMERIC ORAL Take 500 mg by mouth daily cranberry fruit extract (CRANBERRY ORAL) Take 500 mg by mouth daily Eliquis 5 mg tablet TAKE 1 TABLET (5 MG) BY ORAL ROUTE 2 TIMES PER DAY 05/04/2021 acidophilus-pect in, citrus 100 million cell-10 mg capsule Take by mouth 06/03/2024 ascorbic acid (vitamin C) 1,000 mg tablet Take 1,000 mg by mouth daily 06/06/2021 cholecalciferol (VITAMIN D-3) 95823 unit capsule Take 1 Units by mouth daily 06/03/2024 zinc 50 mg tablet Take by mouth 05/25/2021 vitamin B complex capsule Take 1 capsule by mouth daily 05/02/2023 potassium chloride ER 10 mEq CR tablet Take 10 mEq by mouth daily 05/23/2021 04/26/2022 furosemide (LASIX) 20 mg tablet Take 20 mg by mouth daily 05/23/2021 05/02/2023 amiodarone (PACERONE) 200 mg tablet Take 200 mg by mouth 2 (two) times a day 05/23/2021 07/11/2021 metoprolol tartrate (LOPRESSOR) 50 mg immediate release tablet Take 1 tablet (50 mg total) by mouth 2 (two) times a day May increase dose to 100 mg bid if resting heart rate elevates above 100 bpm 05/22/2021 11/13/2023 losartan (COZAAR) 50 mg tablet Take 0.5 tablets (25 mg total) by mouth daily 03/22/2021 10/24/2023 added in this encounter Care Teams Vacuum Furnace Operator Relationship Specialty Start Date End Date Rinku Beasley MD [address] [place] [address] PCP - General 09/08/19 documented as of this encounter
--- OUTSIDE RECORDS SUMMARY | 2024-10-06 05:36 | XMS_ITS | Encounter Summary ---
Author Organization [facility] Address [address] [place] [address] Care Team Providers Care Washing Machine Loader Name Role Phone Rinku Beasley MD Primary Care Provider [phone] Reason for Visit * Cardiology - Closed Specialty Diagnoses / Procedures Referred By Contac t Referred To Contact Diagnoses Paroxysmal atrial fibrillation (CMS/HCC) (HCC) Procedures 24 HR Holter Monitor Rinku Beasley MD [address] [place] [address] Phone: tel: fax: Tara Thurman NP [address] [address] Phone: tel: fax: Referral ID Status Reason Start Date Expiration Date Visits Re quested Visits Authorized [id number] Closed 07/13/2022 08/12/2023 1 1 Encounter Details Date Type Department Care Team (Latest Contact Info) Description 07/13/2022 10:30 AM CDT Ancillary Procedure [facility] Cardiology [address] [facility] [address] [place] [id number] Paroxysmal atrial fibrillation (CMS/HCC) (HCC) Social History Tobacco Use Types Packs/Day [...] on file Legal Sex Female 12:[address]PARTMENT DISPATCHER Gender Identity Not on file Sexual Orientation Not on file documented as of this encounter Plan of Treatment Not on file documented as of this encounter Procedures Procedure Name Priority Date/Time Associated Diagnosis Comments HOLTER MONITOR 24 HR Routine 07/13/2022 11:56 AM CDT Paroxysmal atrial fibrillation (CMS/HCC) (HCC) documented in this encounter Results * 24 HR Holter Monitor (07/13/2022 11:56 AM CDT) Anatomical Region Laterality Modality Other Narrative 07/18/2022 3:34 PM CDT AMBULATORY TURNAROUND PLANNER REPORT Patient Name: Lluvia Castaneda Date of [...] was used to complete this document, therefore, metal furrer variances may occur. Tl Brown MD, [facility] 07/18/22 Procedure Note Tl Brown MD - 07/18/2022 AMBULATORY TURNAROUND PLANNER REPORT Patient Name: Lluvia Castaneda Date of [...] software was used to complete this document, therefore,metal furrer variances may occur. Tl Brown MD, [facility] 07/18/22 Tara Thurman NP [facility] Final Result documented in this encounter Visit Diagnoses Diagnosis Paroxysmal atrial fibrillation (CMS/HCC) (HCC) Atrial fibrillation documented in this encounter Care Teams Washing Machine Loader Relationship Specialty Start Date End Date Rinku Beasley MD [address] [place] [address] PCP - General 09/08/19 documented as of this encounter
--- OUTSIDE RECORDS SUMMARY | 2024-10-06 05:36 | XMS_ITS | Encounter Summary ---
Author Organization [facility] Healthcare Address [address] [place] [address] Care Team Providers Care Faith Doctor Name Role Phone Unavailable Primary Care Provider Unavailabl e Encounter Details Date Type Department Care Team (Late st Contact Info) Description 04/25/2009 12:01 AM CDT - 04/25/2009 11:59 PM CDT Hospital Encounter [facility] Tuan Nur MD [address] [place] [address] Thoracic or lumbosacral neuritis or radiculitis Social History Tobacco Use Types Packs/Day Years Used Date Smoking Tobacco: Never Assessed Comments Unknown Sex and Gender Information Value Date Recorded Sex Assigned at Not on file Legal 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
--- OUTSIDE RECORDS SUMMARY | 2024-10-06 05:36 | XMS_ITS | Encounter Summary ---
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
--- OUTSIDE RECORDS SUMMARY | 2024-10-06 05:36 | XMS_ITS | Encounter Summary ---
Author Organization [facility] Healthcare Address [address] [place] [address] Care Team Providers Care Turntable Operator Name Role Phone Unavailable Primary Care Provider Unavailabl e Encounter Details Date Type Department Care Team (Late st Contact Info) Description 10/21/2008 12:01 AM FIRE CHIEF'S AIDE - 10/21/2008 11:59 PM FIRE CHIEF'S AIDE Hospital Encounter [facility] Tuan Nur MD [address] [place] [address] Thoracic or lumbosacral neuritis or radiculitis Social History Tobacco Use Types Packs/Day Years Used Date Smoking Tobacco: Never Assessed Comments Unknown Sex and Gender Information Value Date Recorded Sex Assigned at Not on file Legal Sex Female 12:33 AM FIRE CHIEF'S AIDE Gender Identity Not on file Sexual Orientation Not on file documented as of this encounter Plan of Treatment Not on file documented as of this encounter Visit Diagnoses Diagnosis Thoracic or lumbosacral neuritis or radiculitis Thoracic or lumbosacral neuritis or radiculitis, unspecified documented in this encounter
--- OUTSIDE RECORDS SUMMARY | 2024-10-06 05:36 | XMS_ITS | Encounter Summary ---
Author Organization [facility] Healthcare Address [address] [place] [address] Care Team Providers Care Eyewear Manufacturing Tech Name Role Phone Unavailable Primary Care Provider Unavailabl e Encounter Details Date Type Department Care Team (Late st Contact Info) Description 08/07/2007 12:01 AM BONDACTOR MACHINE OPERATOR - 08/07/2007 11:59 PM BONDACTOR MACHINE OPERATOR Hospital Encounter [facility] Tuan Nur MD [address] [place] [address] Social History Tobacco Use Types Packs/Day Years Used Date Smoking Tobacco: Never Assessed Comments Unknown Sex and Gender Information Value Date Recorded Sex Assigned at Not on file Legal Sex Female 12:33 AM BONDACTOR MACHINE OPERATOR Gender Identity Not on file Sexual Orientation Not on file documented as of this encounter Plan of Treatment Not on file documented as of this encounter Visit Diagnoses Not on filedocumented in this encounter
--- OUTSIDE RECORDS SUMMARY | 2024-10-06 05:36 | XMS_ITS | Encounter Summary ---
Author Organization [facility] Address [address] [place] [address] Care Team Providers Care Professional Healthcare Representative Name Role Phone Rinku Beasley MD Primary Care Provider [phone] Reason for Visit * Reason Comments Atrial Fibrillation 3 month fu Follow-up Encounter Details Date Type Department Care Team (Late st Contact Info) Description 10/17/2021 3:00 PM BOXING PROMOTER Office Visit [facility] Cardiology [address] [place] [address] Saul Tee MD [address] [facility] [address] [place] [address] Paroxysmal atrial fibrillation (CMS/HCC) (HCC) (Primary Dx) [...] on file Legal Sex Female 12:33 AM BOXING PROMOTER Gender Identity Not on file Sexual Orientation Not on file documented as of this encounter Last Filed Vital Signs Vital Sign Reading Time Taken Comments Blood Pressure 142/70 10/17/2021 2:32 PM BOXING PROMOTER Pulse 66 10/17/2021 2:32 PM BOXING PROMOTER Temperature - - Respiratory Rate - - Oxygen Saturation 98% 10/17/2021 2:32 PM BOXING PROMOTER Inhaled Oxygen Concentration - - Weight 104.8 kg (231 lb) 10/17/2021 2:32 PM BOXING PROMOTER Height 160 cm (5' 3 ) 10/17/2021 2:32 PM BOXING PROMOTER Body Mass Index 40.92 10/17/2021 2:32 PM BOXING PROMOTER documented in this encounter Progress Notes * Saul Tee MD - 10/17/2021 3:00 PM CST [facility] FOLLOW UP 10/17/2021 Lluvia Castaneda is a 71 y.o. female [...] 06/07/2021 restoring sinus rhythm. Following cardioversion and wrist stress duration of sinus rhythm she felt much better. We began the process of weweaning down medications. Amiodarone was reduced to 200 mg daily. She returns today for scheduled follow-up. She feels well today and does not describe any cardiovascular symptoms. She is currently taking amiodarone 200 mg daily and metoprolol at a daily dosage of 100 mg. She remains systemically anticoagulated as well. Given the lack of symptoms and mild systolic hypertension I am not going to reduce her metoprolol dosage. We talked about reducing that somewhat during this appointment but I think we will leave her medications without change today. REVIEW OF SYSTEMS General ROS: negative for [...] 1 tablet (200 mg total) by mouth daily, Disp: 30 tablet, Rfl: 11 ??? cholecalciferol (VITAMIN D-3) 54586 unit capsule, Take 1 Units by mouth [...] for component: LABALBU PHYSICAL EXAM Vitals BP 142/70 (BP Location: Right arm, Patient Position: Sitting) Pulse 66 Ht 160 cm (5' 3 ) Wt 104.8 kg (231 lb) SpO2 98% BMI 40.92 kg/m?? Physical Examination: General appearance - alert, [...] fibrillation Obesity Mild mitral regurgitation PLAN/RECOMMENDATIONS Continue current doses of amiodarone metoprolol and apixaban. Follow-up 6 months or p.r.n. Saul Tee MD NG PROMOTER documented in this encounter Plan of Treatment Not on file documented as of this encounter Visit Diagnoses Diagnosis Paroxysmal atrial fibrillation (CMS/HCC) (HCC)- Primary Atrial fibrillation documented in this encounter Care Teams Professional Healthcare Representative Relationship Specialty Start Date End Date Rinku Beasley MD [address] [place] [address] PCP - General 09/08/19 documented as of this encounter
--- OUTSIDE RECORDS SUMMARY | 2024-10-06 05:36 | XMS_ITS | Encounter Summary ---
Author Organization [facility] Address [address] [place] [address] Care Team Providers Care Broom Worker Name Role Phone Rinku Beasley MD Primary Care Provider Reason for Visit * Reason Comments Atrial Fibrillation 6 month follow up. Encounter Details Date Type Department Care Team (Late st Contact Info) Description 10/30/2022 11:30 AM TECHNICIAN TELECOMMUNICATION SYSTEMS Office Visit [facility] Cardiology [address] [place] [address] Saul Tee MD [address] [place] [address] Paroxysmal atrial fibrillation (CMS/HCC) (HCC) (Primary Dx); Lipid screening Social History Tobacco Use Types [...] on file Legal Sex Female 12:33 AM TECHNICIAN TELECOMMUNICATION SYSTEMS Gender Identity Not on file Sexual Orientation Not on file documented as of this encounter Last Filed Vital Signs Vital Sign Reading Time Taken Comments Blood Pressure 104/62 10/30/2022 11:27 AM TECHNICIAN TELECOMMUNICATION SYSTEMS Pulse 52 10/30/2022 11:27 AM TECHNICIAN TELECOMMUNICATION SYSTEMS Temperature - - Respiratory Rate - - Oxygen Saturation 98% 10/30/2022 11:27 AM TECHNICIAN TELECOMMUNICATION SYSTEMS Inhaled Oxygen Concentration - - Weight 104.8 kg (231 lb) 10/30/2022 11:27 AM TECHNICIAN TELECOMMUNICATION SYSTEMS Height 160 cm (5' 3 ) 10/30/2022 11:27 AM TECHNICIAN TELECOMMUNICATION SYSTEMS Body Mass Index 40.92 10/30/2022 11:27 AM TECHNICIAN TELECOMMUNICATION SYSTEMS documented in this encounter Progress Notes * Saul Tee MD - 10/30/2022 11:30 AM CST [facility] FOLLOW UP 10/30/2022 Lluvai Castaneda is a 72 y.o. female who [...] 06/07/2021 restoring sinus rhythm. Following cardioversion and quaker of sinus rhythm she felt much better. We began the process of we weaning down medications. Amiodarone was reduced to 200 mg daily. Eventually the drug was reduced even further to 100 mg every other day. She returns to the office today for a six-month appointment. The patient underwent an outpatient evaluation in the fall of 2021 because of symptoms of dyspnea. She had a Holter monitor done which didnot show any arrhythmias to speak of. She had a nuclear stress test done in the office which showedno ischemic abnormalities and normal left ventricular systolic function. She says that for the mostpart she is feeling very well she does have some occasional brief episodes of palpitations which I suppose could represent some breakthrough episodes of atrial fibrillation which would not be surprising since her amiodarone dosage is now extremely low. Having said this she is otherwise stable and does not have any cardiovascular complaints. She did have more shortness of breath earlier in the winter when she and her were visiting relatives up in [place] at a significantly higher altitude. I did not find this surprising or of any great concern REVIEW OF SYSTEMS General ROS: negative for [...] taking: Reported on 07/13/2022), Disp: , Rfl: amiodarone (PACERONE) 200 mg tablet, Take 1 tablet (200 mg total) by mouth daily (Patient taking differently: Take 100 mg by mouth every other day), Disp: 30 tablet, Rfl: 11 cholecalciferol (VITAMIN D-3) 96883 unit capsule, Take 1 Units by mouth daily, Disp: , Rfl: cranberry fruit extract (CRANBERRY ORAL), Take by mouth, Disp: , Rfl: diphenhydrAMINE (BENADRYL) 25 mg capsule, Take 25 mg by mouth nightly as needed for itching, Disp: , Rfl: Eliquis 5 mg tablet, TAKE 1 TABLET (5 MG) BY ORAL ROUTE 2 TIMES PER DAY, Disp: , Rfl: furosemide (LASIX) 20 mg tablet, Take 20 mg by mouth daily (Patient not taking: Reported on 07/13/2022), Disp: , Rfl: losartan (COZAAR) 50 mg [...] for component: LABALBU PHYSICAL EXAM Vitals BP 104/62 (BP Location: Right arm, Patient Position: Sitting) Pulse 52 Ht 160 cm (5' 3 ) Wt [...] 6 months or p.r.n. Saul Tee MD NICIAN TELECOMMUNICATION SYSTEMS documented in this encounter Miscellaneous Notes * Addendum Note - Ngoc mE MA - 10/30/2022 11:30 AM CSTAddended by: NGOC EM on: 10/30/2022 11:51 AM Modules accepted: Orders NICIAN TELECOMMUNICATION SYSTEMS documented in this encounter Plan of Treatment Not on file documented as of this encounter Procedures Procedure Name Priority Date/Time Associated Diagnosis Comments POCT LIPID PANEL Routine 10/30/2022 11:5 0 AM TECHNICIAN TELECOMMUNICATION SYSTEMS Lipid screening documented in this encounter Results * POCT lipid panel (10/30/2022 11:50 AM TECHNICIAN TELECOMMUNICATION SYSTEMS) Cholesterol, POC 201 mg/dL HDL, POC 55 mg/dL Triglycerides, POC 197 mg/dL LDL Cholesterol POC 107 mg/dL Chol/HDL Ratio, POC 1.9 Non-HDL Cholesterol, POC 146 mg/dL Cholesterol Total, POC 201 mg/dL Capillary blood 10/30/2022 1 1:50 AM TECHNICIAN TELECOMMUNICATION SYSTEMS us Saul Tee MD POINT OF CARE TEST ORDER SUN Final Result documented in this encounter Visit Diagnoses Diagnosis Paroxysmal atrial fibrillation (CMS/HCC) (HCC)- Primary Atrial fibrillation Lipid screening Screening for lipoid disorders documented in this encounter Care Teams Broom Worker Relationship Specialty Start Date End Date Rinku Beasley MD [address] [place], [place] [id number] PCP - General 09/08/19 documented as of this encounter
--- OUTSIDE RECORDS SUMMARY | 2024-10-06 05:36 | XMS_ITS | Encounter Summary ---
Author Organization [facility] Healthcare Address [address] [place] [address] Care Team Providers Care Global Compensation Director Name Role Phone Unavailable Primary Care Provider Unavailabl e Encounter Details Date Type Department Care Team (Late st Contact Info) Description 08/26/2008 12:01 AM POT PRESS OPERATOR - 08/26/2008 11:59 PM POT PRESS OPERATOR Hospital Encounter [facility] Tuan Nur MD [address] [place] [address] Generalized osteoarthrosis, involving multiple sites; Pain in joint, multiple sites Social History Tobacco Use Types Packs/Day Years Used Date Smoking Tobacco: Never Assessed Comments Unknown Sex and Gender Information Value Date Recorded Sex Assigned at Not on file Legal Sex Female 12:33 AM POT PRESS OPERATOR Gender Identity Not on file Sexual Orientation Not on file documented as of this encounter Plan of Treatment Not on file documented as of this encounter Visit Diagnoses Diagnosis Generalized osteoarthrosis, involving multiple sites Pain in joint, multiple sites documented in this encounter
--- OUTSIDE RECORDS SUMMARY | 2024-10-06 05:36 | XMS_ITS | Encounter Summary ---
Author Organization [facility] Healthcare Address [address] [place] [address] Care Team Providers Care Retail Salesworker Name Role Phone Unavailable Primary Care Provider Unavailabl e Encounter Details Date Type Department Care Team (Late st Contact Info) Description 07/15/2008 12:01 AM CDT - 07/15/2008 11:59 PM CDT Hospital Encounter [facility] Tuan Nur MD [address] [place] [address] Social History Tobacco Use Types Packs/Day Years Used Date Smoking Tobacco: Never Assessed Comments Unknown Sex and Gender Information Value Date Recorded Sex Assigned at Not on file Legal Sex Female 12:33 AM BEET WORKER Gender Identity Not on file Sexual Orientation Not on file documented as of this encounter Plan of Treatment Not on file documented as of this encounter Visit Diagnoses Not on filedocumented in this encounter
--- OUTSIDE RECORDS SUMMARY | 2024-10-06 05:36 | XMS_ITS | Encounter Summary ---
Author Organization [facility] Healthcare Address [address] [place] [address] Care Team Providers Care Civil Engineering Professor Name Role Phone Unavailable Primary Care Provider Unavailabl e Encounter Details Date Type Department Care Team (Late st Contact Info) Description 05/20/2008 12:01 AM CDT - 05/20/2008 11:59 PM CDT Hospital Encounter [facility] Tuan Nur MD [address] [place] [address] Social History Tobacco Use Types Packs/Day Years Used Date Smoking Tobacco: Never Assessed Comments Unknown Sex and Gender Information Value Date Recorded Sex Assigned at Not on file Legal Sex Female 12:33 AM STEREOTYPE CASTER Gender Identity Not on file Sexual Orientation Not on file documented as of this encounter Plan of Treatment Not on file documented as of this encounter Visit Diagnoses Not on filedocumented in this encounter
--- OUTSIDE RECORDS SUMMARY | 2024-10-06 05:36 | XMS_ITS | Encounter Summary ---
Author Organization [facility] Address [address] [place] [address] Care Team Providers Care Hemstitcher Name Role Phone Rinku Beasley MD Primary Care Provider Encounter Details Date Type Department Care Team (Late st Contact Info) Description 05/25/2021 Telephone [facility] Cardiology [address] [facility] [address] [place] [address] Tara Thurman NP [address] [facility] [address] [place] [address] Social History Tobacco Use Types [...] on file Legal Sex Female 12:33 AM GOLF SALES ASSOCIATE Gender Identity Not on file Sexual Orientation Not on file documented as of this encounter Miscellaneous Notes * Telephone Encounter - Svitlana Green RN - 05/25/2021 9:50 AM CDT Pt scheduled for a CV at with [facility]. 06/07. Hold metoprolol am of procedure. Pt to bring copy of COVID test with her . She is tested every Saturday at work. documented in this encounter Plan of Treatment Not on file documented as of this encounter Visit Diagnoses Not on filedocumented in this encounter Care Teams Hemstitcher Relationship Specialty Start Date End Date Rinku Beasley MD [address] [place] [address] PCP - General 09/08/19 documented as of this encounter
--- OUTSIDE RECORDS SUMMARY | 2024-10-06 05:36 | XMS_ITS | Encounter Summary ---
Author Organization [facility] Healthcare Address [address] [place] [address] Care Team Providers Care Software Maintenance Engineer Name Role Phone Unavailable Primary Care Provider Unavailabl e Encounter Details Date Type Department Care Team (Late st Contact Info) Description 10/14/2008 12:01 AM ELECTRICIAN SECOND - 10/14/2008 11:59 PM ELECTRICIAN SECOND Hospital Encounter [facility] Tuan Nur MD [address] [place] [address] Pain in joint, multiple sites; Generalized osteoarthrosis, involving multiple sites Social History Tobacco Use Types Packs/Day Years Used Date Smoking Tobacco: Never Assessed Comments Unknown Sex and Gender Information Value Date Recorded Sex Assigned at Not on file Legal Sex Female 12:33 AM ELECTRICIAN SECOND Gender Identity Not on file Sexual Orientation Not on file documented as of this encounter Plan of Treatment Not on file documented as of this encounter Visit Diagnoses Diagnosis Pain in joint, multiple sites Generalized osteoarthrosis, involving multiple sites documented in this encounter
--- OUTSIDE RECORDS SUMMARY | 2024-10-06 05:36 | XMS_ITS | Encounter Summary ---
Author Organization [facility] Healthcare Address [address] [place] [address] Care Team Providers Care Digital Media Producer Name Role Phone Unavailable Primary Care Provider Unavailabl e Encounter Details Date Type Department Care Team (Late st Contact Info) Description 06/17/2008 12:01 AM CDT - 06/17/2008 11:59 PM CDT Hospital Encounter [facility] Tuan Nur MD [address] [place] [address] Social History Tobacco Use Types Packs/Day Years Used Date Smoking Tobacco: Never Assessed Comments Unknown Sex and Gender Information Value Date Recorded Sex Assigned at Not on file Legal Sex Female 12:33 AM VALIDATION TECHNICIAN Gender Identity Not on file Sexual Orientation Not on file documented as of this encounter Plan of Treatment Not on file documented as of this encounter Visit Diagnoses Not on filedocumented in this encounter
--- OUTSIDE RECORDS SUMMARY | 2024-10-06 05:36 | XMS_ITS | Encounter Summary ---
Author Organization [facility] Address [address] [place] [address] Care Team Providers Care Senior Marketing Analyst Name Role Phone Rinku Beasley MD Primary Care Provider [phone] Reason for Visit * Diagnostic Imaging (Routine) - Closed Specialty Diagnoses / Procedures Referred By Contac t Referred To Contact Diagnoses Dyspnea on exertion Procedures NM MPI SPECT (Rest and/or Stress) Multiple Studies Reed Todd NP [address] [facility] [address] [address] Phone: tel: fax: [facility] Referral ID Status Reason Start Date Expiration Date Visits Re quested Visits Authorized [id number] Closed 07/26/2022 08/25/2023 1 1 Encounter Details Date Type Department Care Team (Latest Contact Info) Description 08/09/2022 8:15 AM US CUSTOMS AND BORDER OFFICER Ancillary Procedure [facility] Medical [facility] Cardiology [address] [facility] [address] [phone] Dyspnea on exertion Social History Tobacco Use Types Packs/Day Years [...] on file Legal Sex Female 12:33 AM US CUSTOMS AND BORDER OFFICER Gender Identity Not on file Sexual Orientation Not on file documented as of this encounter Plan of Treatment Not on file documented as of this encounter Procedures Procedure Name Priority Date/Time Associated Diagnosis Comments NM MPI SPECT (REST AND/OR STRESS) MULTIPLE STUDIES Schedule Routine, Read Routine (OP Routine) 08/09/2022 11:04 AM US CUSTOMS AND BORDER OFFICER Dyspnea on exertion documented in this encounter Results * NM MPI SPECT (Rest and/or Stress) Multiple Studies (08/09/2022 11:04 AM US CUSTOMS AND BORDER OFFICER) Anatomical Region Laterality Modality Body N/A Nuclear Medicine 08/09/2022 9:09 AM US CUSTOMS AND BORDER OFFICER Narrative 08/09/2022 1:27 PM US CUSTOMS AND BORDER OFFICER [facility] Cardiology [address], [place] [address] [address] [facility] [address] [address], [place] [address] P:[phone] P:[phone] MPI Imaging Report Patient Name: LLUVIA JONES S : 1950 Study Date: 08/09/2022 9:09:57 AM Gender: F Tech: [facility] Location: [place] Ref.Provider: REED TODD Height(Cm): 160 BSA: Weight(Kg): 107 BMI: 41.8Order Provider: REED TODD Physician: Referring Physician: Dr. Beasley. HCG Physician: Saul Tee M.D.,F.A.C.C. Interpreting Physician: Meredith Oneil M.D. Stress Supervision: [...] Signed By: Meredith Oneil MD 2022-08-09 13:14:44 US CUSTOMS AND BORDER OFFICER Electronically Signed By: Saul Tee MD, [facility] 2022-08-09 13:27:13 US CUSTOMS AND BORDER OFFICER Procedure Note Saul Tee MD - 08/09/2022 [facility] Cardiology [address] [facility] [address] [address] [facility] [address] [address], [place] [address] P:[phone] P:[phone] MPI Imaging Report Patient Name: LLUVIA JONES SPatient ID: [id number] : [id number] Date: 08/09/2022 9:09:57 AM Gender: FAccession #: [id number] Tech: YONNY LORIOHLocation: [place] Ref.Provider: REED TODDHeight(Cm): 160 BSA: Weight(Kg): 107 BMI: 41.8Order Provider: REED TODD Physician: Referring Physician: Dr. Beasley. HCG Physician: Saul Tee M.D.,F.A.C.C. Interpreting Physician: Meredith Oneil M.D. Stress Supervision: [...] was 108/76 mmHg. Post Stress Blood Pressure aon718/72 mmHg. Termination: Protocol complete. Resting ECG: Normal [...] Signed By: Meredith Oneil MD 2022-08-09 13:14:44 US CUSTOMS AND BORDER OFFICER Electronically Signed By: Saul Tee MD, [facility] 2022-08-09 13:27:13 US CUSTOMS AND BORDER OFFICER Reed Todd INVOICE CLASSIFICATION CLERK IMG NM PROCEDURES Final R esult documented in this encounter Visit Diagnoses Diagnosis Dyspnea on exertion Other dyspnea and respiratory abnormality documented in this encounter Administered Medications Inactive Administered Medications - up to 3 most recent administrations Medication Order MAR Action Action Date Dose Rate Site regadenoson (LEXISCAN) 0.4 mg/5 mL injection 0.4 mg 0.4 mg, intravenous, Once, On Venecia 08/09/22 at 1145, For 1 dose, Administer IV push over 10 seconds., Indications: Myocardial Perfusion Imaging AdjunctIndications:Myocard ial Perfusion Imaging Adjunct Given 08/09/2022 11:07 AM US CUSTOMS AND BORDER OFFICER 0.4 mg tc-99m sestamibi unit dose injection 25.9 millicurie 25.9 millicurie, intravenous, Once in imaging, radiopharmaceutical, Starting on Venecia 08/09/22 at 1104, For 1 dose, Indications: Diagnostic RadiographyIndications:Linda gnostic Radiography Given 08/09/2022 11:08 AM US CUSTOMS AND BORDER OFFICER 25.9 millicuries tc-99m sestamibi unit dose injection 8.7 millicurie 8.7 millicurie, intravenous, Once in imaging, radiopharmaceutical, Starting on Venecia 08/09/22 at 0852, For 1 dose, Indications: Diagnostic RadiographyIndications:Linda gnostic Radiography Given 08/09/2022 8:53 AM US CUSTOMS AND BORDER OFFICER 8.7 millicuries documented in this encounter Care Teams Senior Marketing Analyst Relationship Specialty Start Date End Date Rinku Beasley MD [address] [place] [address] PCP - General 09/08/19 documented as of this encounter
--- OUTSIDE RECORDS SUMMARY | 2024-10-06 05:36 | XMS_ITS | Encounter Summary ---
Author Organization [facility] Healthcare Address [address] [place] [address] Care Team Providers Care Sergeant At Arms Name Role Phone Rinku Beasley MD Primary Care Provider [phone] Reason for Referral * Cardiology (Routine) - Closed Specialty Diagnoses / Procedures Referred By Contac t Referred To Contact Cardiology Diagnoses Nonrheumatic mitral valve regurgitation Procedures Transthoracic Echo (TTE) Complete W Doppler/CF Reed Todd NP [address] [address] Phone: tel: fax: Referral ID Status Reason Start Date Expiration Date Visits Re quested Visits Authorized [id number] Closed 07/18/2023 08/16/2024 1 1 Reason for Visit * Reason Comments Follow-up Medication adjustmen t Encounter Details Date Type Department Care Team (Late st Contact Info) Description 07/18/2023 3:30 PM CDT Office Visit [facility] Cardiology [address] [place] [phone] Reed Todd NP [address] [address] Paroxysmal atrial fibrillation (CMS/HCC) (HCC); Chronic anticoagulation; Nonrheumatic mitral valve regurgitation; TAZ on CPAP; Morbid obesity with BMI of 40.0-44.9, adult [...] on file Legal Sex Female 12:33 AM FINISH MENDER Gender Identity Not on file Sexual Orientation Not on file documented as of this encounter Last Filed Vital Signs Vital Sign Reading Time Taken Comments Blood Pressure 110/68 07/18/2023 3:12 PM CDT Pulse 70 07/18/2023 3:12 PM CDT Temperature - - Respiratory Rate - - Oxygen Saturation 98% 07/18/2023 3:12 PM CDT Inhaled Oxygen Concentration - - Weight 102.5 kg (226 lb) 07/18/2023 3:12 PM CDT Height 160 cm (5' 3 ) 07/18/2023 3:12 PM CDT Body Mass Index 40.03 07/18/2023 3:12 PM CDT documented in this encounter Patient Instructions * Patient Instructions* Reed Todd NP - 07/18/2023 3:30 PM CDT Weigh yourself every morning after you urinate. Record your weights. Call us with weight gain of 3 or more pounds in 1 day, and/or 5 or more pounds in 1 week. There are changes that could mean you are having congestive heart failure. Usually someone experiences 2 or more of the following changes: 1. Shortness of breath (usually occurs with activity, with laying flat, and/or wakes you from sleep) 2. Swelling (usually in feet, ankles, legs, abdomen, or overall rapid weight gain) 3. Persistent coughing or wheezing (sometimes with white or pink mucus) 4. Feeling more tired or fatigued with routine activities 5. Poor appetite, feeling full or bloated, or nauseated documented in this encounter Ordered Prescriptions Prescription Sig Dispense Quantity Refills Last Filled Start Date End Date amiodarone (PACERONE) 200 mg tabletIndications: Paroxysmal atrial fibrillation (CMS/HCC) (HCC) Take 1 tablet (200 mg total) by mouth daily 07/18/2023 10/24/2023 documented in this encounter Progress Notes * Reed Todd NP - 07/18/2023 3:30 PM CDT Images from the original note were not included. [facility] Cardiology [address] [place] [address] Date of Visit: 07/18/2023 Patient ID: Lluvia Jones 1950 Chief Complaint Patient presents with Follow-up Medication adjustment Lluvia Jones is a 73 y.o. female who is an established patient of Dr. Tee with a history of atrial fibrillation and mild mitral valve regurgitation coming to the office for follow up under theadvice of her PCP after having an elevated heart rate and elevated proBNP. History of Present Illness: Lluvia Jones is a 73 y.o. female who presents [...] 06/07/2021 restoring sinus rhythm. Following cardioversion and islam of sinus rhythm she felt much better. We began the process of we weaning down medications. Amiodarone was reduced to 200 mg daily. Eventually the drug was reduced even further to 100 mg every other day. 07/18/2023 office visit with HOME SALES SERVICE PROFESSIONAL: After the last visit I sent her for a sleep study which was abnormal and she is been on a CPAP about 3 weeks. She is using it 4-6 hours a week continues to work on using it more hours. PCP found her heart rate elevated and instructed her to increase metoprolol to 100 mg b.i.d. and discontinue losartan. He also felt she was retaining fluid and increase spironolactone to 50 mg daily. He advised her to come see us to be scheduled for a transesophageal echocardiogram. Today she reports that she feels her dyspnea on exertion has gotten a little worse in recent months. She has a little bit of edema but nothing real noticeable. She has no cough or wheezing. She still has a sensation of slight pressure on the left side of the thorax but she notices with activity. She also mentions she is scheduled for colonoscopy and is being referred to a upper extremity surgeon for mild anemia that is not iron deficient. Records that I personally reviewed on the day of this visit include: (the interpretation is outlined in the HPI above) 05/02/2023 office note from myself, 08/09/2022 stress test report, 10/30/[address] Tee, 07/13/2019 echocardiogram report from [facility]. 07/12/2023 lab results. I have also reviewed: allergies, current medications, past family history, past medical history, past social history, past surgical history and problem list Medical History: Past Medical History: Diagnosis Date Hypertension History reviewed. No pertinent surgical history. Social History Tobacco Use Smoking Status Never Smokeless Tobacco Never Social History Tobacco Use Smoking status: Never Smokeless tobacco: Never Substance and Sexual Activity Drug use: Never Sexual activity: None Alcohol Use: Not At Risk (11/17/2019) AUDIT-C Frequency of Alcohol Consumption: Never Average Number of Drinks: Not on file Frequency of Binge Drinking: Not on file History reviewed. No pertinent family history. Review of Systems Constitutional: Positive for malaise/fatigue. Negative for weight gain. Cardiovascular: Positive for dyspnea on exertion and palpitations. Negative for chest pain, leg swelling, near-syncope, orthopnea, paroxysmal nocturnal dyspnea and syncope. Respiratory: Positive for shortness of breath. Negative for cough and wheezing. Hematologic/Lymphatic: Negative for bleeding problem. Does not bruise/bleed easily. Vital Signs: BP 110/68 (BP Location: Right arm, Patient Position: Sitting) Pulse 70 Ht 160 cm (5' 3 ) Wt 102.5 kg (226 lb) SpO2 98% BMI 40.03 kg/m?? Physical Exam Constitutional: General: She is not in acute distress. Appearance: She is well-developed. She is obese. HENT: Head: Normocephalic and atraumatic. Eyes: General: No scleral icterus. Conjunctiva/sclera: Conjunctivae normal. Neck: Vascular: No JVD. Trachea: No tracheal deviation. Cardiovascular: Rate and Rhythm: Normal rate. Rhythm irregular. Heart sounds: Normal heart sounds. No murmur heard. Comments: No appreciable murmur heard on exam. Apical heart rate approximately 80 beats per minute. Pulmonary: Effort: Pulmonary effort is normal. No respiratory distress. Breath sounds: Normal breath sounds. Musculoskeletal: Comments: Very slight nonpitting lower extremity edema Skin: General: Skin is warm and dry. [...] capsule, Take by mouth, Disp: , Rfl: cholecalciferol (VITAMIN D-3) 27666 unit capsule, Take 1 Units by mouth daily, Disp: , Rfl: cranberry fruit extract (CRANBERRY ORAL), Take by mouth, Disp: , Rfl: diphenhydrAMINE (BENADRYL) 25 mg capsule, Take 1 tablet/capsule (25 mg total) by mouth nightly as needed for itching, Disp: , Rfl: Eliquis 5 mg tablet, TAKE 1 TABLET (5 MG) BY ORAL ROUTE 2 TIMES PER DAY, Disp: , Rfl: metoprolol tartrate (LOPRESSOR) 50 mg immediate release tablet, Take 2 tablets (100 mg total) by mouth 2 (two) times a day, Disp: , Rfl: gcsugpshhsnq-pxjauflq-twdxny tablet, Take 1 tablet by mouth daily, [...] (200 mg total) by mouth daily, Disp: , Rfl: losartan (COZAAR) 50 mg tablet, Take 0.5 tablets (25 mg total) by mouth daily (Patient not taking: Reported on 07/18/2023), Disp: , Rfl: No results found for: POTASSIUM , BUNSER , CREATININE , CHOL , TRIG , LDL , LDLCALC , HDL No results found for: WBC , HGB , HCT , MCV , PLT No results found for this or any previous visit (from the past 4 hour(s)). 07/12/2023 labs: Na 145, K 4.5, BUN 19, creatinine 1.04, EGFR 52, proBNP 1629, hemoglobin 11, hematocrit 34.0, absolute reticulocyte count 0.07. Assessment: Diagnoses and all orders for this visit: Paroxysmal atrial fibrillation (CMS/HCC) ([facility]) - amiodarone (PACERONE) 200 mg tablet; Take 1 tablet (200 mg total) by mouth daily Chronic anticoagulation Nonrheumatic mitral valve regurgitation - Transthoracic Echo (TTE) Complete W Doppler/CF; Future TAZ on CPAP Morbid obesity with BMI of 40.0-44.9, adult ([facility]) Plan/Recommendations: When I saw her in April she reported feeling more breakthrough episodes of AFib. I sent her for a sleep study which was abnormal and she is now using CPAP. However on a recent visit to PCP she had an elevated heart rate and on exam today she is in atrial fibrillation. Her heart rate is now controlled because PCP increased metoprolol. I instructed her to increase amiodarone to 200 mg daily to help her revert back to sinus rhythm. Continue the metoprolol tartrate at 100 mg b.i.d. as dosed by thePCP. When she has future follow-up with Dr. Tee, if she has not reverted back to sinus rhythmwe may need to schedule a cardioversion. Continue Eliquis for stroke risk reduction. This is shortly going to be placed on hold because she has a colonoscopy coming up. She has a mildly elevated proBNP. I suspect this is more likely due to the fact that she is back inatrial fibrillation and not congestive heart failure. She has no appreciable murmur on exam. Mitralvalve regurgitation was mild on transthoracic echo 4 years ago. We will begin by repeating a transthoracic echocardiogram and then determine if a transesophageal echocardiogram is indicated. She will continue the spironolactone at 50 mg daily as directed by PCP and remain off the losartan for the time being as directed by the PCP as well. I encouraged her to continue working with adjusting to CPAP as this will help control her atrial fibrillation. Weight loss will also help reduce her burden of atrial fibrillation. I recommend she work towards a20 lb weight loss over the next year. She will have office follow-up with Dr. Tee after the echocardiogram was performed. This planwas discussed with Dr. Tee who is in the office at the time and was in agreement. 07/18/2023 ANAY Gatica-BC Nurse Practitioner with [facility] Card[facility] This note is dictated and transcribed using [employer] Direct Software. Garment Supervisor variancesmay occur. Despite proofreading, typographical errors may occur. documented in this encounter Plan of Treatment Not on file documented as of this encounter Results * TRANSTHORACIC ECHO (TTE) COMPLETE W DOPPLER/CF WO CONTRAST (09/18/2023 12:07 PM FINISH MENDER) Anatomical Region Laterality Modality Ultrasound 09/18/2023 11:2 4 AM FINISH MENDER Narrative 09/18/2023 12:33 PM FINISH MENDER [facility] Cardiology [address] [facility] [address], [place] [address] [address] [facility] [address], [place] [address] P:[phone] P:[phone] Echocardiographic Report Patient Name: LLUVIA JONES S : 1950 Study Date: 09/18/2023 11:24:24 AM Gender: F Tech: Location: ID Ref Provider: REED TODD ?Height(Cm): 160 BSA: 2.13 [...] Interpretation Site: Exam was interpreted at [facility]. Left Ventricle: Normal left ventricular systolic function. [...] Signed By: Les Juan MD 2023-09-18 12:32:52 FINISH MENDER Procedure Note Les Juan MD - 09/18/2023 [facility] Cardiology [address] [facility] [address], [place] [address] [address] [facility] [address], [place] [address] P:[phone] P:[phone] Echocardiographic Report Patient Name: LLUVIA JONES S : 1950 Study Date: 09/18/2023 11:24:24 AM Gender: F Tech: Location: [facility] Provider: REED TODD Height(Cm): 160 BSA: 2.13 [...] Interpretation Site: Exam was interpreted at [facility]. Left Ventricle: Normal left ventricular systolic function. [...] Signed By: Les Juan MD 2023-09-18 12:32:52 FINISH MENDER Reed Todd NP CV ECHO PROCEDURES Final Result documented in this encounter Visit Diagnoses Diagnosis Paroxysmal atrial fibrillation (CMS/HCC) (HCC) Atrial fibrillation Chronic anticoagulation Encounter for long-term (current) use of anticoagulants Nonrheumatic mitral valve regurgitation TAZ on CPAP Morbid obesity with BMI of 40.0-44.9, adult (HCC) Nonrheumatic mitral valve regurgitation documented in this encounter Discontinued Medications Medication Sig Discontinue Reason Start Date End Da te amiodarone (PACERONE) 200 mg tablet Take 1 tablet (200 mg total) by mouth daily Reorder 07/11/2021 07/18/2023 documented as of this encounter Care Teams Sergeant At Arms Relationship Specialty Start Date End Date Rinku Beasley MD [address] [place] [address] PCP - General 09/08/19 documented as of this encounter
--- OUTSIDE RECORDS SUMMARY | 2024-10-06 05:36 | XMS_ITS | Encounter Summary ---
Author Organization [facility] Address [address] [place] [address] Phone Care Team Providers Care Tie Worker Name Role Phone No, Physician Primary Care Provider [phone] Encounter Details Date Type Department Care Team (Late st Contact Info) Description 01/02/2019 10:45 AM CDT Office Visit [facility] Dermatology [address] [place] [address] [address] [place] [phone] Debo Vasquez MD [address] [place] [address] [address] [place] [id number] Lentigines (Primary Dx); Other seborrheic keratosis; Smallwood angioma Social History Tobacco Use Types Packs/Day Years Used Date Smoking Tobacco: Never Assessed Comments Unknown Sex and Gender Information Value Date Recorded Sex Assigned at Not on file Legal Sex Female 12:33 AM R D ENGINEER Gender Identity Not on file Sexual Orientation Not on file documented as of this encounter Progress Notes * Debo Vasquez MD - 01/02/2019 10:45 AM CDT DERMATOLOGY NOTE Lluvia Castaneda [id number] 01/02/19 CC: skin check and brown spots on the face HPI: Lluvia Castaneda is a 68 y.o. year-old female who presents today for skin check, here to establish care. Denies any non-healing sores or changing moles. Here PCP recently did a bx of a site at the rightpre-auricular cheek that returned as benign. She notes new asymptomatic brown spots on the forehead and cheeks. Does not wear sunscreen regularly. Personal history of skin cancer: none Family history of melanoma: no Past medical history, allergies, and medications: Reviewed in electronic medical record ROS: Constitutional: No fever, no chills, no unintended weight loss Neurological: No headaches, no dizziness, no vision changes Cardiovascular: No chest pain, no palpitations Respiratory: No shortness of breath, no coughing Psychiatric: No mood changes, no depression Lymphatic: No swollen lymph nodes Hematology: No easy bruising Integument: No itching, no non-healing sores Oral: No mouth sores or lesions Musculoskeletal: No joint stiffness, no joint pain Gastrointestinal: No nausea, no vomiting, no diarrhea, no abdominal pain Genitourinary: No genital sores PHYSICAL EXAM: - thin 1-4mm brown macules at nose and cheeks - 2mm dark brown macule at left upper lip - bx scar at right preauricular cheek - scattered smallwood red papules at Otherwise: GENERAL: Appears well. No acute distress. ORIENTATION: Alert and oriented x3. MOOD/AFFECT: Normal affect. FACE: No abnormalities noted. EARS: No abnormalities noted. SCALP/HAIR: No abnormalities noted. EYES/EYELIDS: No scleral icterus. No abnormalities noted of conjunctiva or eyelids. LIPS/ORAL MUCOSA: No abnormalities noted. NECK: No abnormalities noted. CHEST: No abnormalities noted. BACK: No abnormalities noted. ABDOMEN: No abnormalities noted. EXTREMITIES (RUE): No abnormalities noted. EXTREMITIES (LUE): No abnormalities noted. EXTREMITIES (RLE): No abnormalities noted. EXTREMITIES (LLE): No abnormalities noted. DIGITS/NAILS: No cyanosis, clubbing, or nail abnormality. GENITALIA, GROIN, BUTTOCKS: No abnormalities noted. CARDIOVASCULAR: No edema or varicosities noted. ECCRINE: No hyperhidrosis. ASSESSMENT AND PLAN: 1) Lentigines: - photoprotection reviewed - benign, reassured 2) Seborrheic keratoses: - benign, reassured 3) Smallwood angiomas: - benign, reassured RTC in [address] Rhea Chen have seen the patient with the resident and agree with her note. Dr. Debo Vasquez 01/02/19 documented in this encounter Plan of Treatment Not on file documented as of this encounter Visit Diagnoses Diagnosis Lentigines- Primary Other seborrheic keratosis Smallwood angioma documented in this encounter Care Teams Tie Worker Relationship Specialty Start Date End Date No, Physician PCP - General 01/02/19 09/07/19 documented as of this encounter
--- OUTSIDE RECORDS SUMMARY | 2024-10-06 05:36 | XMS_ITS | Encounter Summary ---
Author Organization [facility] Healthcare Address [address] [place] [address] Care Team Providers Care Mines Safety Engineer Name Role Phone Rinku Beasley MD Primary Care Provider Encounter Details Date Type Department Care Team (Latest Contact Info) Description 09/14/2019 6:30 AM MANAGER COMMUNITY RELATIONS - 09/14/2019 11:59 PM MANAGER COMMUNITY RELATIONS Hospital Encounter [facility] [address] [place] [address] Shaniuqa Campoverde MD [address] [place] [address] [address] [place] [address] Terry Green DO [address] [facility] [address] [place] [address] Discharge Disposition: Discharge to home or self care Social History Tobacco Use Types Packs/Day Years Used Date Smoking Tobacco: Never Assessed Comments Unknown Sex and Gender Information Value Date Recorded Sex Assigned at Not on file Legal Sex Female 12:33 AM MANAGER COMMUNITY RELATIONS Gender Identity Not on file Sexual Orientation Not on file documented as of this encounter Discharge Diagnoses Diagnosis Iron deficiency anemia, unspecified - IRON DEFICIENCY ANEMIA, UNSPECIFIED documented in this encounter Medications at Time of Discharge hydroCHLOROthiazi de (HYDRODIURIL) 12.5 mg tablet Take 12.5 mg by mouth daily 1 08/30/2019 05/25/2021 losartan (COZAAR) 100 mg tablet Take 50 mg by mouth daily 0 09/01/2019 05/25/2021 documented as of this encounter Discharge Disposition Disposition Code Departure Means Destination Discharge to home or self care documented in this encounter Plan of Treatment Not on file documented as of this encounter Visit Diagnoses Not on filedocumented in this encounter Care Teams Mines Safety Engineer Relationship Specialty Start Date End Date Rinku Beasley MD [address] [place] [address] PCP - General 09/08/19 documented as of this encounter
--- OUTSIDE RECORDS SUMMARY | 2024-10-06 05:36 | XMS_ITS | Encounter Summary ---
Author Organization [facility] Healthcare Address [address] [place] [address] Care Team Providers Care Screen Room Operator Name Role Phone Unavailable Primary Care Provider Unavailabl e Encounter Details Date Type Department Care Team (Late st Contact Info) Description 01/29/2008 12:01 AM CDT - 01/29/2008 11:59 PM CDT Hospital Encounter [facility] Tuan Nur MD [address] [place] [address] Social History Tobacco Use Types Packs/Day Years Used Date Smoking Tobacco: Never Assessed Comments Unknown Sex and Gender Information Value Date Recorded Sex Assigned at Not on file Legal Sex Female 12:33 AM STEREOTYPER HELPER Gender Identity Not on file Sexual Orientation Not on file documented as of this encounter Plan of Treatment Not on file documented as of this encounter Visit Diagnoses Not on filedocumented in this encounter
--- OUTSIDE RECORDS SUMMARY | 2024-10-06 05:36 | XMS_ITS | Encounter Summary ---
Author Organization [facility] Healthcare Address [address] [place] [address] Care Team Providers Care Yoga Teacher Name Role Phone Unavailable Primary Care Provider Unavailabl e Encounter Details Date Type Department Care Team (Late st Contact Info) Description 12/15/2009 10:41 AM CDT - 12/15/2009 11:59 PM CDT Hospital Encounter [facility] Social History Tobacco Use Types Packs/Day Years Used Date Smoking Tobacco: Never Assessed Comments Unknown Sex and Gender Information Value Date Recorded Sex Assigned at Not on file Legal Sex Female 12:33 AM EARRING MAKER Gender Identity Not on file Sexual Orientation Not on file documented as of this encounter Plan of Treatment Not on file documented as of this encounter Visit Diagnoses Not on filedocumented in this encounter
--- OUTSIDE RECORDS SUMMARY | 2024-10-06 05:36 | XMS_ITS | Encounter Summary ---
Author Organization [facility] Address [address] [facility] [address] [place] [address] Care Team Providers Care Wire Wrapper Machine Operator Name Role Phone Rinku Beasley MD Primary Care Provider Encounter Details Date Type Department Care Team (Late st Contact Info) Description 05/30/2023 Telephone [facility] Cardiology [address] [facility] [address] [facility] [address] [place] [address] Saul Tee MD [address] [facility] [address] [facility] [address] [place] [address] Social History Tobacco Use Types [...] on file Legal Sex Female 12:33 AM DATA SUPPORT ANALYST Gender Identity Not on file Sexual Orientation Not on file documented as of this encounter Miscellaneous Notes * Telephone Encounter - Yue Munson RN - 05/30/2023 10:41 AM CDT Faxed sleep study results as requested. * Telephone Encounter - Nany Bey - 05/30/2023 10:35 AM CDT Pt requesting sleep study results be faxed to Dr. Beasley (PCP). Thank you. Contact: documented in this encounter Plan of Treatment Not on file documented as of this encounter Visit Diagnoses Not on filedocumented in this encounter Care Teams Wire Wrapper Machine Operator Relationship Specialty Start Date End Date Rinku Beasley MD [address] [place] [address] PCP - General 09/08/19 documented as of this encounter
--- OUTSIDE RECORDS SUMMARY | 2024-10-06 05:36 | XMS_ITS | Encounter Summary ---
Author Organization [facility] Healthcare Address [address] [place] [address] Care Team Providers Care Constitutional Law Professor Name Role Phone Unavailable Primary Care Provider Unavailabl e Encounter Details Date Type Department Care Team (Late st Contact Info) Description 08/28/2007 12:01 AM LIFE SCIENCE TECHNICAL OFFICER - 08/28/2007 11:59 PM LIFE SCIENCE TECHNICAL OFFICER Hospital Encounter [facility] Tuan Nur MD [address] [place] [address] Social History Tobacco Use Types Packs/Day Years Used Date Smoking Tobacco: Never Assessed Comments Unknown Sex and Gender Information Value Date Recorded Sex Assigned at Not on file Legal Sex Female 12:33 AM LIFE SCIENCE TECHNICAL OFFICER Gender Identity Not on file Sexual Orientation Not on file documented as of this encounter Plan of Treatment Not on file documented as of this encounter Visit Diagnoses Not on filedocumented in this encounter
--- OUTSIDE RECORDS SUMMARY | 2024-10-06 05:36 | XMS_ITS | Encounter Summary ---
Author Organization [facility] Address [address] [place] [address] Care Team Providers Care Audioprosthologist Name Role Phone Rinku Beasley MD Primary Care Provider [phone] Reason for Visit * Reason Comments Follow-up 6 mo Encounter Details Date Type Department Care Team (Late st Contact Info) Description 05/02/2023 10:30 AM CDT Office Visit [facility] Cardiology [address] [facility] [address] [place] [address] Tara Thurman NP [address] [place], [place] [id number] Fatigue, unspecified type; Shortness of breath; Sleep disorder, unspecified; Paroxysmal atrial fibrillation (CMS/HCC) (HCC); Chronic anticoagulation Social History Tobacco Use Types [...] on file Legal Sex Female 12:33 AM BILINGUAL TRAINER Gender Identity Not on file Sexual Orientation Not on file documented as of this encounter Last Filed Vital Signs Vital Sign Reading Time Taken Comments Blood Pressure 106/60 05/02/2023 10:23 AM CDT Pulse 56 05/02/2023 10:23 AM CDT Temperature - - Respiratory Rate - - Oxygen Saturation 98% 05/02/2023 10:23 AM CDT Inhaled Oxygen Concentration - - Weight 101.6 kg (224 lb) 05/02/2023 10:23 AM CDT Height 160 cm (5' 3 ) 05/02/2023 10:23 AM CDT Body Mass Index 39.68 05/02/2023 10:23 AM CDT documented in this encounter Progress Notes * Tara Thurman NP - 05/02/2023 10:30 AM CDT Images from the original note were not included. [facility] Cardiology [address] [place] [address] Date of Visit: 05/02/2023 Patient ID: Lluvia Castaneda 1950 Chief Complaint Patient presents with Follow-up 6 mo Lluvia Castaneda is a 72 y.o. female who is an established patient of Dr. Tee with a history of atrial fibrillation and mild mitral valve regurgitation coming to the office for routine follow up. History of Present Illness: Lluvia Castaneda is [...] 06/07/2021 restoring sinus rhythm. Following cardioversion and yarsani of sinus rhythm she felt much better. [...] additional antihypertensive benefit. 07/13/2022 office visit with CHILD WELFARE CONSULTANT: She is here to discuss dyspnea on [...] PFT and echo were normal. 12-lead ECG showed sinus bradycardia, otherwise normal intervals, rate 49 beats per minute. 10/30/[address] Tee: She returns to the office today for a six-month appointment. The patient underwent an outpatient evaluation in the fall of 2021 because of symptoms of dyspnea. She had a Holter monitor done which did not show any arrhythmias to speak of. She had a nuclearstress test done in the office which showed no ischemic abnormalities and normal left ventricular sy stolic function. She says that for the most part she is feeling very well she does have some occasional brief episodes of palpitations which I suppose could represent some breakthrough episodes of atrial fibrillation which would not be surprising since her amiodarone dosage is now extremely low. Having said this she is otherwise stable and does not have any cardiovascular complaints. She did havemore shortness of breath earlier in the winter when she and her were visiting relatives up in [place] at a significantly higher altitude. I did not find this surprising or of any great concern 05/02/2023 office visit with CHILD WELFARE CONSULTANT: She is here for routine follow-up, appointment with Dr. Tee had to be rescheduled. She reports she still gets short of breath easily and is tired during the day. She frequently wakes up during sleep when her neck is bent down and her chin has fallen down to rest on her chest. She has never been tested for sleep apnea. Over the past 2-3 months she is estimates 3 or 4 episodes of AFib that can last 10-15 minutes or go on for a few hours and she generally does not feel well at that time. She tries to remain physically active and recently did a 3 mi hike. Records that I personally reviewed on the day of this visit include: (the interpretation is outlined in the HPI above) 07/13/2022 office note from myself, 08/09/2022 stress test report, 10/30/[address] Tee. I have also reviewed: allergies, current medications, [...] history. Review of Systems Constitutional: Positive for malaise/fatigue and weight loss. Negative for weight gain. Cardiovascular: Positive for palpitations. Negative for chest pain, claudication, leg swelling, near-syncope, orthopnea, paroxysmal nocturnal dyspnea and syncope. Respiratory: Positive for shortness of breath and sleep disturbances due to breathing. Negative forcough. Hematologic/Lymphatic: Negative for bleeding problem. Does not bruise/bleed easily. Neurological: Positive for excessive daytime sleepiness. Negative for dizziness and light-headedness. Vital Signs: BP 106/60 (BP Location: Left arm, Patient Position: Sitting) Pulse 56 Ht 160 cm (5' 3 ) Wt 101.6 kg (224 lb) SpO2 98% BMI 39.68 kg/m?? Physical Exam Constitutional: General: She is [...] capsule, Take by mouth, Disp: , Rfl: amiodarone (PACERONE) 200 mg tablet, Take 1 tablet (200 mg total) by mouth daily (Patient taking differently: Take 0.5 tablets (100 mg total) by mouth every other day), Disp: 30 tablet, Rfl: 11 cholecalciferol (VITAMIN D-3) 80941 unit capsule, Take 1 Units by mouth [...] 0.5 tablets (25 mg total) by mouth daily, Disp: , Rfl: metoprolol tartrate (LOPRESSOR) 50 mg immediate release tablet, Take 1 tablet (50 mg total) by mouth 2 (two) times a day, Disp: , Rfl: lycqyxulfuny-eezxuuov-svndmn tablet, Take 1 tablet by mouth daily, Disp: , Rfl: omeprazole (PriLOSEC) 40 mg capsule, Take 1 capsule (40 mg total) by mouth daily, Disp: , Rfl: spironolactone (ALDACTONE) 50 mg tablet, Take 1 tablet (50 mg total) by mouth daily, Disp: , Rfl: TURMERIC ORAL, Take by mouth, Disp: , Rfl: No results found for: POTASSIUM, BUNSER, CREATININE, CHOL, TRIG, LDL, LDLCALC, HDL No results found for: WBC, HGB, HCT, MCV, PLT No results found for this or any previous visit (from the past 4 hour(s)). Assessment: Diagnoses and all orders for this visit: Fatigue, unspecified type - PSG; Future Shortness of breath Sleep disorder, unspecified - PSG; Future Paroxysmal atrial fibrillation (CMS/HCC) (HCC) - PSG; Future Chronic anticoagulation Plan/Recommendations: She feels persistently tired, gets short of breath easily, finds herself waking frequently at nightwhen her chin has fallen down close to her chest. She has risk factors for sleep apnea which include obesity, atrial fibrillation, hypertension. She has never been tested for sleep apnea. I will sendher for a split night sleep study and she agrees. Atrial fibrillation sounds largely controlled with her amiodarone although she does endorse symptoms consistent with some sporadic breakthrough episodes of AFib. It will be important to identify if she has sleep apnea so that we can increase the likelihood her AFib will stay well controlled. Continue amiodarone , metoprolol and Eliquis. Counseling performed at this visit included bleeding risks associated with systemic oral anticoagulation and when to seek emergency care. Return to the office to see Dr. Tee in 6 months. Call us sooner with questions or concerns. 05/02/2023 ANAY Gatica- Nurse Practitioner with [facility] This note is dictated and transcribed using LumeJet Direct Software. Global Ceo variancesmay occur. Despite proofreading, typographical errors may occur. documented in this encounter Plan of Treatment Not on file documented as of this encounter Visit Diagnoses Diagnosis Fatigue, unspecified type Shortness of breath Sleep disorder, unspecified Paroxysmal atrial fibrillation (CMS/HCC) (HCC) Atrial fibrillation Chronic anticoagulation Encounter for long-term (current) use of anticoagulants documented in this encounter Discontinued Medications Medication Sig Discontinue Reason Start Date End Da te furosemide (LASIX) 20 mg tablet Take 20 mg by mouth daily Discontinued by another clinician 05/23/2021 05/02/2023 vitamin B complex capsule Take 1 capsule by mouth daily Therapy completed 05/02/2023 zinc gluconate 50 mg tablet Take 50 mg by mouth daily Therapy completed 05/02/2023 documented as of this encounter Historical Medications * This list may reflect changes made after this encounter. multivitamin-mine rals-lutein tablet Take 1 tablet by mouth daily added in this encounter Care Teams Audioprosthologist Relationship Specialty Start Date End Date Rinku Beasley MD [address] [place] [address] PCP - General 09/08/19 documented as of this encounter
--- OUTSIDE RECORDS SUMMARY | 2024-10-06 05:36 | XMS_ITS | Encounter Summary ---
Author Organization [facility] Address [address] [place] [address] Care Team Providers Care Stone Unloader Name Role Phone Unavailable Primary Care Provider Unavailabl e Encounter Details Date Type Department Care Team (Late st Contact Info) Description 09/09/2007 12:01 AM CORRECTIONS CADET - 09/09/2007 11:59 PM CORRECTIONS CADET Hospital Encounter [facility] Tuan Nur MD [address] [place] [address] Social History Tobacco Use Types Packs/Day Years Used Date Smoking Tobacco: Never Assessed Comments Unknown Sex and Gender Information Value Date Recorded Sex Assigned at Not on file Legal Sex Female 12:33 AM CORRECTIONS CADET Gender Identity Not on file Sexual Orientation Not on file documented as of this encounter Plan of Treatment Not on file documented as of this encounter Visit Diagnoses Not on filedocumented in this encounter
--- OUTSIDE RECORDS SUMMARY | 2024-10-06 05:36 | XMS_ITS | Encounter Summary ---
Author Organization [facility] Address [address] [place] [address] Care Team Providers Care Materials Coordinator Name Role Phone Unavailable Primary Care Provider Unavailabl e Encounter Details Date Type Department Care Team (Late st Contact Info) Description 11/18/2008 12:01 AM PARTY DEMONSTRATOR - 11/18/2008 11:59 PM PARTY DEMONSTRATOR Hospital Encounter [facility] Tuan Nur MD [address] [place] [address] Generalized osteoarthrosis, involving multiple sites; Pain in joint, multiple sites Social History Tobacco Use Types Packs/Day Years Used Date Smoking Tobacco: Never Assessed Comments Unknown Sex and Gender Information Value Date Recorded Sex Assigned at Not on file Legal Sex Female 12:33 AM PARTY DEMONSTRATOR Gender Identity Not on file Sexual Orientation Not on file documented as of this encounter Plan of Treatment Not on file documented as of this encounter Visit Diagnoses Diagnosis Generalized osteoarthrosis, involving multiple sites Pain in joint, multiple sites documented in this encounter
== END 2024-09-29 10:27 | disposition home or self-care (01) ==
LOC: CHSLAB 10:29
PROVIDERS: PCP Internal Medicine; Visit Provider Internal Medicine
DX: C86.00 Extranodal NK/T-cell lymphoma, nasal type not having achieved remission (principal)
CPT/HCPCS: 36415; 80048

== ENCOUNTER 2024-11-03 08:06 | Outpatient (CLI) | payer MEDICARE, SELFPAY ==
--- OUTSIDE RECORDS SUMMARY | 2024-11-03 08:29 | XMS_ITS | Continuity of Care Document ---
Author Organization [facility] Address [address] [place] [address] Phone Care Team Providers Care Cell Operator Name Role Phone Philip, Edward Unavailable Unavailable Advance Directives Directive Yes / No Effective Date File Name No Information Encounters Encounter Description Practice Location Reason(s) For Visit Diagnoses Date Provider Providers Copied on Encounter [facility], [address], [place], [place], [id number], [place] tel:[phone] [facility] [place] No Information Sep-1 0-200 3 Doisy Edward. [address] , [address], [place], [address], [place]. tel:[phone] Family History Family Member Type Diagnosis Age At Onset No Information Payers Payer name Insurance type Covered democrat ID Authoriza tion(s) [employer] SOI CI [id number] Social History Type Description Quantity Date Captured [...]
--- OUTSIDE RECORDS SUMMARY | 2024-11-03 08:29 | XMS_ITS | Clinical Summary ---
Author Organization [facility] Address [address] [place] [address] Care Team Providers Care Mold Holder Name Role Phone Unavailable Primary Care Provider [...] of 1 - PCV) 2017 COVID-19 Vaccine (2023-2 5 season) 2024 Influenza Adult (#1) 2024 RSV Immunization or 60+ Years (1 - 1-dose 75+ series) 2027 Meningococcal B Vaccine Aged Out No l onger eligible based on patient's age to complete this topic Meningococcal Vaccine Aged Out No phil errol eligible based on patient's age to complete this topic RSV Immunizations Under 20 Months Aged Out No longer eligible based on patient's age to complete this topic Insurance MEDICARE AETNA
--- OUTSIDE RECORDS SUMMARY | 2024-11-03 08:29 | XMS_ITS | Clinical Summary ---
Author Organization [facility] Address [address] [place] [address] Phone Care Team Providers Care Laborer Wood Preserving Plant Name Role Phone Rinku Beasley MD Primary Care Provider [phone] Laurie Wilkins APRN, UTILITY MANAGER Unavailable Allergies Active Allergy Reactions Criticality Noted [...] Take 1,000 mg by mouth daily. Active Talihina-3 Fatty Acids (FISH OIL PO) Take 1 [...] Comments Blood Pressure 158/82 11/26/2019 10:00 AM TOOTH POLISHER Pulse 74 11/26/2019 10:00 AM TOOTH POLISHER Temperature 36.7 C (98 F) 11/26/2019 10:00 AM TOOTH POLISHER Respiratory Rate 20 11/26/2019 10:0 0 AM TOOTH POLISHER Oxygen Saturation 100% 11/26/2019 10: 00 AM TOOTH POLISHER Inhaled Oxygen Concentration - - Weight 98.3 kg (216 lb 12.8 oz) 020 10:00 AM TOOTH POLISHER Height 161.3 cm (5' 3.5 ) 11/26/2019 10 :00 AM TOOTH POLISHER Body Mass Index 37.8 11/26/2019 10:00 AM TOOTH POLISHER Plan of Treatment Health Maintenance Due Date Last Done Comments DEXA Bone Density 1950 Hepatitis C Virus (HCV) Screening 1950 Cologuard 2002 Immunochemical Fecal Occult Blood 2002 Mammogram 2002 Zoster Immunization (2 of 3) 03/31/2014 02/03/2014 Influenza Immunization (#1) 05/24/202406/24, 05/23/2016 SARS-COV-2 Immunization (1 - 2023- season) 2024 Colonoscopy 08/17/2024 08/17/2019, 07/27/2015 Colorectal [...] Maintenance Insurance MEDICARE COMM[employer]CIAL GENERIC Care Teams Laborer Wood Preserving Plant Relationship Specialty Start Date End Date Rinku Beasley MD [address] [place], [place] [id number] PCP - General Internal Medicine 05/21/19 Laurie Wilkins APRN, UTILITY MANAGER [address] [place], [place] [id number] Nurse Practitioner Advanced Practice Nurse 12/01/19
--- OUTSIDE RECORDS SUMMARY | 2024-11-03 08:29 | XMS_ITS | Encounter Summary ---
Author Organization [facility] Address [address] [place] [address] Phone Care Team Providers Care Eye Specialist Name Role Phone Rinku Beasley MD Primary Care Provider [phone] Encounter Details Date Type Department Care Team (Latest Contact Info) Description 08/19/2024 Orders Only [facility] Scanning, Provider Social History Tobacco Use Types [...] on file Legal Sex Female 12:33 AM GLASS BEVELLER Gender Identity Not on file Sexual Orientation Not on file documented as of this encounter Plan of Treatment Not on file documented as of this encounter Procedures Procedure Name Priority Date/Time Associated Diagnosis Comments CARDIOLOGY DOCUMENT SCAN 08/19/2024 documented in this encounter Results * Cardiology Document Scan (08/19/2024) Anatomical Region Laterality Modality Other us Provider Scanning CV CARDIAC SERVICES PROCEDURES Final Result documented in this encounter Visit Diagnoses Not on filedocumented in this encounter Care Teams Eye Specialist Relationship Specialty Start Date End Date Rinku Beasley MD [address] [place], [place] [phone] PCP - General 09/08/19 documented as of this encounter
--- OUTSIDE RECORDS SUMMARY | 2024-11-03 08:30 | XMS_ITS | Clinical Summary ---
Author Organization [facility] [employer] Address [address] [place] [address] Care Team Providers Care Transportation Agent Name Role Phone Rinku Beasley MD Primary Care Provider [phone] Source Comments [facility] [employer],non-owned Affiliates and Associated Physician Practices is amultiple site organization consisting of ambulatory clinics and hospital sitesin [place], [place] and [place]. This disclosure is being madepursuant to the Care Everywhere program and may not contain all information available regarding this patient. Last updated 18.[facility] [employer] Allergies Active Allergy Reactions Criticality Noted Date [...] daily Active vitamine D3 (Cholecalciferol) 250 MCG (56279 UT) capsule Take 1 Units by mouth [...] Comments Blood Pressure 128/86 08/07/2022 11:26 AM VECTOR CONTROL ASSISTANT Pulse 81 08/07/2022 11:26 AM VECTOR CONTROL ASSISTANT Temperature - - Respiratory Rate - - Oxygen Saturation - - Inhaled Oxygen Concentration - - Weight 106.4 kg (234 lb 9.6 oz) 022 11:26 AM VECTOR CONTROL ASSISTANT Height 160 cm (5' 3 ) 08/07/2022 11:26 AM VECTOR CONTROL ASSISTANT Body Mass Index 41.56 08/07/2022 11:26 AM VECTOR CONTROL ASSISTANT Plan of Treatment Health Maintenance Due Date Last Done Comments BONE DENSITY TESTING 1950 COLOGUARD (AGES 45-75) - COL ON CA SCREENING 1950 COLON MONITORING 1950 COLONOSCOPY - COLON CA SCREENING 1952 CT COLONOGRAPHY - COLON CA SCREENING 1950 Colorectal Cancer Screening 1950 FIT - COLON CA SCREENING 1950 FLEX SIG - COLON CA SCREENING 1950 LIPID TESTING 1950 MAMMOGRAM 1950 MEDICARE AWV 12 MONTHS 1950 HEPATITIS C SCREENING 06/21/1970 [...] age to complete this topic Care Teams Transportation Agent Relationship Specialty Start Date End Date Rinku Beasley MD [address] [place] [address] [facility] - General 04/19/22
--- OUTSIDE RECORDS SUMMARY | 2024-11-03 08:30 | XMS_ITS | Referral Summary ---
Author Organization [facility] Address [address] [place] [address] Care Team Providers Care Dry Paste Supervisor Name Role Phone Rinku Beasley MD Primary Care Provider Encounters Date Type Department Care Team Description 10/09/[address] [place] [address] [place] [address] Idris Rosas MD PhD 10/01/2024 Orders Only [facility] Idris Rosas MD PhD 10/01/[address] [place] [address] [place] [address] Idris Rosas MD PhD 08/24/2024 Orders Only [place] [id number] [facility] [address] [place] [address] [place] [address] Idris Rosas MD PhD Paroxysmal atrial fibrillation (CMS/HCC) (HCC) (Primary Dx); High risk medication use 08/19/2024 Orders Only [facility] Scanning, Provider 08/17/2024 Orders Only [facility] Cardiology [facility] Advanced Medicine [address]th [place] [address] [place] [address] Idris Rosas MD PhD Paroxysmal atrial fibrillation (CMS/HCC) (HCC) (Primary Dx); High risk medication use 08/17/2024 Telephone [place] [id number] [facility] Advanced Medicine [address]th [place] [address] [place] [address] Cheryl Palma 08/10/2024 10:45 AM FUSE MAKER Office Visit [facility] Cardiology at [address] [place] [address] Saul Tee MD Paroxysmal atrial [...] 11/19/2023 Assessment & Plan (11/21/2023 10:19 AM FUSE MAKER): History of symptomatic atrial fibrillation and rapid [...] -telemetry Assessment & Plan (11/20/2023 3:13 PM FUSE MAKER): History of symptomatic atrial fibrillation and rapid [...] 11/19/2023 Assessment & Plan (11/21/2023 10:19 AM FUSE MAKER): Normotensive on admission -continue home spironolactone 50 mg daily Assessment & Plan (11/20/2023 3:11 PM FUSE MAKER): Normotensive on admission -continue home spironolactone 50 mg daily Morbid obesity with BMI of 40.0-44.9, adult 10/25 TAZ on CPAP 07/18/2023 Assessment & Plan (11/21/2023 10:19 AM FUSE MAKER): -continue evening CPAP Assessment & Plan (11/19/2023 9:10 PM FUSE MAKER): -continue evening CPAP Nonrheumatic mitral valve regurgitation 07/18/20 23 Paroxysmal atrial fibrillation (CMS/HCC) 021 Class 2 obesity with body ma ss index (BMI) of 38.0 to 38.9 in adult 05/25/2021 Assessment & Plan (11/21/2023 10:19 AM FUSE MAKER): Contributing towards TAZ and AF -encouraged weight loss and caloric restriction Assessment & Plan (11/19/2023 9:11 PM FUSE MAKER): Contributing towards TAZ and AF -encouraged weight [...] on file Legal Sex Female 12:33 AM FUSE MAKER Gender Identity Not on file Sexual Orientation Not on file Last Filed Vital Signs Vital Sign Reading Time Taken Comments Blood Pressure 138/80 08/10/2024 10:25 AM FUSE MAKER Pulse 77 08/10/2024 10:25 AM FUSE MAKER Temperature 36.3 C (97.3 F) 11/22/2023 6:52 AM FUSE MAKER Respiratory Rate 16 11/22/2023 8:50 AM FUSE MAKER Oxygen Saturation 94% 08/10/2024 10:25 AM FUSE MAKER Inhaled Oxygen Concentration - - Weight 99.3 kg (219 lb) 08/10/2024 10:25 AM FUSE MAKER Height 160 cm (5' 3 ) 08/10/2024 10:25 AM FUSE MAKER Body Mass Index 38.79 08/10/2024 10:25 AM FUSE MAKER Plan of Treatment Not on file Medical Devices Implanted Type Area Sales Agent Financial Report Service Device Identifier Shelf Expiration Date Model / Serial / Lot Nail Nail N/A: Back Description:L4-L5 Procedures Procedure Name Priority Date/Time Associated Diagnosis Comments CARDIOLOGY DOCUMENT SCAN 10/01/2024 8:07 AM FUSE MAKER CARDIOLOGY DOCUMENT SCAN 08/19/2024 from Last 3 Months Results * Cardiology Document Scan (10/01/2024 8:07 AM FUSE MAKER) Anatomical Region Laterality Modality Other Idris Rosas MD PhD CV CARDIAC SERVICES PROCEDURES Final Result * Cardiology Document Scan (08/19/2024) Anatomical Region Laterality Modality Other us Provider Scanning CV CARDIAC SERVICES PROCEDURES Final Result from Last 3 Months Insurance [facility] MEDIC[facility] AETNA [facility] Advance Directives For more information, please contact: [phone] * Full Code (Latest Code Status on File) Date Activated Date Inactivated Comments 11/19/2023 9:00 PM 11/22/2023 6:04 PM Care Teams Dry Paste Supervisor Relationship Specialty Start Date End Date Rinku Beasley MD [address] [place] [id number] PCP - General 09/08/19
--- OUTSIDE RECORDS SUMMARY | 2024-11-03 08:30 | XMS_ITS | Clinical Summary ---
Author Organization [facility] Address [address] [place] [address] Care Team Providers Care Pit Shoveler Name Role Phone Rinku Beasley MD Primary Care Provider + [phone] Allergies Active Allergy Reactions Criticality Noted Date [...] 11/19/2023 Assessment & Plan (11/21/2023 10:19 AM MEDICAL BILLING MANAGER): History of symptomatic atrial fibrillation and rapid [...] -telemetry Assessment & Plan (11/20/2023 3:13 PM MEDICAL BILLING MANAGER): History of symptomatic atrial fibrillation and rapid [...] 11/19/2023 Assessment & Plan (11/21/2023 10:19 AM MEDICAL BILLING MANAGER): Normotensive on admission -continue home spironolactone 50 mg daily Assessment & Plan (11/20/2023 3:11 PM MEDICAL BILLING MANAGER): Normotensive on admission -continue home spironolactone 50 mg daily Morbid obesity with BMI of 40.0-44.9, adult 10/25 TAZ on CPAP 07/18/2023 Assessment & Plan (11/21/2023 10:19 AM MEDICAL BILLING MANAGER): -continue evening CPAP Assessment & Plan (11/19/2023 9:10 PM MEDICAL BILLING MANAGER): -continue evening CPAP Nonrheumatic mitral valve regurgitation 07/18/20 23 Paroxysmal atrial fibrillation (CMS/HCC) 021 Class 2 obesity with body ma ss index (BMI) of 38.0 to 38.9 in adult 05/25/2021 Assessment & Plan (11/21/2023 10:19 AM MEDICAL BILLING MANAGER): Contributing towards TAZ and AF -encouraged weight loss and caloric restriction Assessment & Plan (11/19/2023 9:11 PM MEDICAL BILLING MANAGER): Contributing towards TAZ and AF -encouraged weight loss and caloric restriction Encounters Date Type Department Care Team Description 10/09/2024 Telephone [facility] Cardiology [address] [place] [address] Advanced Medicine 8th [place] [address] [place] [address] Idris Rosas MD PhD 10/01/2024 Orders Only [facility] CARDIOLOG[facility] Idris Rosas MD PhD 10/01/2024 Telephone [facility] Cardiology [facility] Advanced Medicine 8th [place] [address] [place] [address] Idris Rosas MD PhD 08/24/2024 Orders Only [facility] Cardiology [facility] Advanced Medicine 8th [place] [address] [place] [address] Idris Rosas MD PhD Paroxysmal atrial fibrillation (CMS/HCC) (HCC) (Primary Dx); High risk medication use 08/19/2024 Orders Only [facility] CARDI[facility] Scanning, Provider 08/17/2024 Orders Only [facility] Cardiology [address] [facility] Advanced Medicine 8th [place] [address] [place] [phone] Idris Rosas MD PhD Paroxysmal atrial fibrillation (CMS/HCC) (HCC) (Primary Dx); High risk medication use 08/17/2024 Telephone [facility] Cardiology [address] [facility] District Medicine 8th [place] [address] [place] [address] PalmaCheryl anthony 08/10/2024 10:45 AM MEDICAL BILLING MANAGER Office Visit [facility] Cardiology at [address] [place] [address] Saul Tee MD Paroxysmal atrial [...] on file Legal Sex Female 12:33 AM MEDICAL BILLING MANAGER Gender Identity Not on file Sexual Orientation Not on file Obstetrics History Last Filed Vital Signs Vital Sign Reading Time Taken Comments Blood Pressure 138/80 08/10/2024 10:25 AM MEDICAL BILLING MANAGER Pulse 77 08/10/2024 10:25 AM MEDICAL BILLING MANAGER Temperature 36.3 C (97.3 F) 11/22/2023 6:52 AM MEDICAL BILLING MANAGER Respiratory Rate 16 11/22/2023 8:50 AM MEDICAL BILLING MANAGER Oxygen Saturation 94% 08/10/2024 10:25 AM MEDICAL BILLING MANAGER Inhaled Oxygen Concentration - - Weight 99.3 kg (219 lb) 08/10/2024 10:25 AM MEDICAL BILLING MANAGER Height 160 cm (5' 3 ) 08/10/2024 10:25 AM MEDICAL BILLING MANAGER Body Mass Index 38.79 08/10/2024 10:25 AM MEDICAL BILLING MANAGER Plan of Treatment Health Maintenance Due Date [...] history exists Medical Devices Implanted Type Area Jordan Man Device Identifier Shelf Expiration Date Model / Serial / Lot Nail Nail N/A: Back Description:L4-L5 Procedures Procedure Name Priority Date/Time Associated Diagnosis Comments CARDIOLOGY DOCUMENT SCAN 10/01/2024 8:07 AM MEDICAL BILLING MANAGER CARDIOLOGY DOCUMENT SCAN 08/19/2024 from Last 3 Months Results * Cardiology Document Scan (10/01/2024 8:07 AM MEDICAL BILLING MANAGER) Anatomical Region Laterality Modality Other Idris Rosas MD PhD CV CARDIAC SERVICES PROCEDURES Final Result * Cardiology Document Scan (08/19/2024) Anatomical Region Laterality Modality Other us Provider Scanning CV CARDIAC SERVICES PROCEDURES Final Result from Last 3 Months Insurance MEDICARE [facility] MEDICARE MEDICARE AETNA SENIOR SUPPLEMENT Advance Directives For more information, please contact: [phone] * Full Code (Latest Code Status on File) Date Activated Date Inactivated Comments 11/19/2023 9:00 PM 11/22/2023 6:04 PM Care Teams Pit Shoveler Relationship Specialty Start Date End Date Rinku Beasley MD [address] [place], [place] [id number] PCP - General 09/08/19
--- OUTSIDE RECORDS SUMMARY | 2024-11-03 08:30 | XMS_ITS | Patient Health Summary ---
Author Organization [facility] Address [address] [facility] [place] [address] Care Team Providers Care Fugitive Investigator Name Role Phone Rinku Beasley MD Primary Care Provider [phone] Note from [facility],non-owned Affiliates and Associated Physician Practices is amultiple site organization consisting of ambulatory clinics and hospital sitesin [place], [place], [place] and [place]. This disclosure is being madepursuant to the Care Everywhere program and may not contain all information available regarding this patient. Last updated 18.[facility] Allergies * Hydrocodone(Itching) Medications * Be aware [...] daily * vitamine D3 (Cholecalciferol) 250 MCG (37939 UT) capsule Take 1 Units by mouth [...] Comments Blood Pressure 128/86 08/07/2022 11:26 AM MICROWAVE ENGINEER Pulse 81 08/07/2022 11:26 AM MICROWAVE ENGINEER Temperature - - Respiratory Rate - - Oxygen Saturation - - Inhaled Oxygen Concentration - - Weight 106.4 kg (234 lb 9.6 oz) 022 11:26 AM MICROWAVE ENGINEER Height 160 cm (5' 3 ) 08/07/2022 11:26 AM MICROWAVE ENGINEER Body Mass Index 41.56 08/07/2022 11:26 AM MICROWAVE ENGINEER Procedures * FL SWALLOWING FUNCTION STUDY(Performed 07/02/2022) Performed for Dysphagia, unspecified type * WY LARYNGOSCOPY,FLEX FIBER,DIAGNOSTIC(Performed 06/06/2022) Performed for Dysphagia, unspecified type * CULTURE WOUND+GRAM STAIN(Performed 01/22/2014) * CULTURE WOUND+GRAM STAIN(Performed 01/22/2014) * GRAM STAIN SMEAR(Performed 01/22/2014) Results * FL SWALLOWING FUNCTION STUDY (07/02/2022 1:40 PM CDT) Anatomical Region Laterality Modality Chest Radiographic Anni ging 07/02/2022 1:48 PM CDT Narrative 07/02/2022 4:32 PM CDT PROCEDURE: FL SWALLOWING FUNCTION STUDY, DATE/TIME OF EXAM: 07/02/2022 12:44 PM, LOCATION [facility] INDICATION: R13.10: Dysphagia, unspecified type ADDITIONAL CLINICAL [...] Report dictated by Alex Elliott MD, MD (vice president for instruction). Madie Chen MD have personally reviewed and interpreted this examination/study. > Interpreting Provider: Madie Parker MD on 07/02/2022 4:32 PM Procedure Note Aubrie Parker MD - 07/02/2022 PROCEDURE: FL SWALLOWING FUNCTION STUDY, DATE/TIME OF EXAM: 07/02/2022 12:44 PM, LOCATION [facility] INDICATION: R13.10: Dysphagia, unspecified type ADDITIONAL CLINICAL [...] Report dictated by Alex Elliott MD, MD (vice president for instruction). Madie Chen MD have personally reviewed and interpreted this examination/study. > Interpreting Provider: Madie Parker MD on 07/02/2022 4:32 PM Jw Quiroz MD FLUOROSCOPY ORDERABL ES * WY LARYNGOSCOPY,FLEX FIBER,DIAGNOSTIC (06/06/2022 5:28 PM CDT) Narrative Jw Quiroz MD - 06/06/2022 5:28 PM CDT Jw Quiroz MD 06/06/2022 5:29 PM Procedure Note Endoscopy Type: Laryngoscopy without stroboscopy 44703 Endoscope: Flexible 4mm Scope Anesthesia: Lidocaine 2% and Neosynephrine 1/2% (nasal) Procedure Details: The patient was sitting upright in a chair with the head in a slightly anterior sniffing position. The topical anesthesia was administered and then adequate time was allowed for an anesthetic effect. The endoscope was passed [...] supraglottic or posterior glottic edema or erythema. Normal straight free edge to the vocal fold. Condition: Stable. Patient tolerated procedure well. Complications: None I was present for the entirety of the procedure. Jw Quiroz MD PROCEDURE/MINOR SURG ICAL ORDERABLES * (ABNORMAL) CULTURE WOUND+GRAM STAIN (01/22/2014 5:00 PM CDT) Only the most recent of2 resultswithin the time period is included. 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 [phone] * GRAM STAIN SMEAR (01/22/2014 5:00 PM CDT) Gram Stain Many Gram positive cocci in pairs and clusters [facility] Wound 01/22/2014 5:00 PM CDT 01/22/2014 9:54 PM CDT Narrative [facility] - 01/23/2014 12:13 AM CDT AndersonSpecimen#[id number] David Loc/Rm/Bed: EXPCARE G// Source: lt axilla Gram Stains are routinely screened for the presence of Polymorphonuclear Cells. Historical Provider LAB - MICROBIOLOG Y ORDERABLES Performing Organization Address City/[facility]/ZIP Co de Phone Number [address] [phone] Care Teams Fugitive Investigator Relationship Specialty Start Date End Date Rinku Beasley MD [address] [place] [address] PCP - General 04/19/22
--- OUTSIDE RECORDS SUMMARY | 2024-11-03 08:30 | XMS_ITS | Referral Summary ---
Author Organization [facility] Address [address] [address] Care Team Providers Care Associate Professor Of Communication Name Role Phone Rinku Beasley MD Primary Care Provider [phone] Source Comments [facility],non-owned Affiliates and Associated Physician Practices is amultiple site organization consisting of ambulatory clinics and hospital sitesin [place], [place], [place] and [place]. This disclosure is being madepursuant to the Care Everywhere program and may not contain all information available regarding this patient. Last updated 18.[facility] Allergies Active Allergy Reactions Criticality Noted Date [...] daily Active vitamine D3 (Cholecalciferol) 250 MCG (04764 UT) capsule Take 1 Units by mouth [...] Comments Blood Pressure 128/86 08/07/2022 11:26 AM HOSPITAL CODER Pulse 81 08/07/2022 11:26 AM HOSPITAL CODER Temperature - - Respiratory Rate - - Oxygen Saturation - - Inhaled Oxygen Concentration - - Weight 106.4 kg (234 lb 9.6 oz) 022 11:26 AM HOSPITAL CODER Height 160 cm (5' 3 ) 08/07/2022 11:26 AM HOSPITAL CODER Body Mass Index 41.56 08/07/2022 11:26 AM HOSPITAL CODER Plan of Treatment Not on file Care Teams Associate Professor Of Communication Relationship Specialty Start Date End Date Rinku Beasley MD [address] [place] [address] PCP - General 04/19/22
--- OUTSIDE RECORDS SUMMARY | 2024-11-03 08:30 | XMS_ITS | Clinical Summary ---
Author Organization [facility] Address [address] [place] [address] Care Team Providers Care Color Weigher Name Role Phone Rinku Beasley MD Primary Care Provider + Allergies Active Allergy Reactions Criticality Noted Date Comments Hydrocodone-Acetamin ophen Hives,Itching,Rash High 06/01/2019 Red Dye Other (See Comments),Rash Medium 06/01/2019 Itching hives rash, Itching hives rash, Medications acetaminophen (TYLENOL) 325 mg tablet Take 500 mg by mouth daily. Active apixaban (Eliquis) 5 mg tablet TAKE 1 TABLET (5 MG) BY ORAL ROUTE 2 TIMES PER DAY 1 Active metoprolol tartrate (LOPRESSOR) 50 mg tablet Take 100 mg by mouth 2 times daily. 1 Active multivitamins-m inerals-lutein (CENTRUM SILVER) Tablet Take 1 Tablet by mouth daily. Active omeprazole (PriLOSEC) 40 mg Capsule, Delayed Release(E.C.) Take 40 mg by mouth daily. Active spironolactone (ALDACTONE) 50 mg tablet Take 50 mg by mouth daily. 2 Active diphenhydrAMINE (BENADRYL) 25 mg capsule Take 25 mg by mouth. Active hsjzbyc-sret-zm wwr-tggq-qayeut 100 mg-150 mg- 50 mg-150 mg Capsule Take by mouth. Activ e Cranberry 500 mg Capsule Take by mouth. Acti ve dofetilide (TIKOSYN) 125 mcg capsule Take 125 mcg by mouth 2 times daily. 4 Active fluticasone propionate (FLONASE) 50 mcg/spray [place], Suspension nasal inhaler Administer 2 Sprays in each nostril daily. Active azelastine (ASTELIN) 137 mcg/actuation nasal spray Administer 1 [place] in each nostril daily. Active Active Problems No known active problems Encounters Date Type Department Care Team Description 10/15/2024 External Device Data STL ABSTRACTION Provider, Abstract 10/14/2024 External Device Data ST[facility] ABSTRACTION Provider, Abstract 10/13/2024 External Device Data ST[facility] ABSTRACTION Provider, Abstract 10/06/2024 External Device Data ST[facility] ABSTRACTION Provider, Abstract [...] drink = 0.6 oz pur e alcohol) Comments Unknown Sex and Gender Information Value Date Recorded Sex Assigned at Not on file Legal Sex Female 7:51 AM CDT Gender Identity Not on file Sexual Orientation Not on file Last Filed Vital Signs Vital Sign Reading Time Taken Comments Blood Pressure 137/81 05/05/2024 1:09 PM CDT Pulse 60 05/05/2024 1:09 PM CDT Temperature 36.7 C (98 F) 05/05/2024 1:09 PM CDT Respiratory Rate 16 05/05/2024 1:09 PM CDT Oxygen Saturation 97% 05/05/2024 1:09 PM CDT Inhaled Oxygen Concentration - - Weight 102.1 kg (225 lb) 05/05/2024 1:09 PM CDT Height 160 cm (5' 3 ) 08/12/2023 9:42 AM GUN STOCK CHECKER Body Mass Index 39.86 08/12/2023 9:42 AM GUN STOCK CHECKER Plan of Treatment Upcoming Encounters Date Type Department Care Team (Late st Contact Info) Description 11/09/2024 1:15 PM GUN STOCK CHECKER Office Visit [facility] Oncology and Hematology - [place] [address] [facility] [facility] [address] [place] [address] Jacinto Arzate MD [address] [place] [address] Health Maintenance Due Date Last Done Comments DTAP/TDAP/TD VACCINES (1 - Tdap) 1971 Traditional Medicare (ACO) A nnual Wellness Visit 1971 BREAST CANCER SCREENING 1992 FIT-DNA Q 3 years 1997 FIT/FOBT Q 1 year 1997 Flex Sig/CT Colonography Q 5 years 1997 PNEUMOCOCCAL VACCINE 65+ YEA RS (1 of 1 - PCV) 2002 ZOSTER VACCINE (1 of 2) 2002 INFLUENZA VACCINE (#1) 2024 RSV VACCINE (60+ or ) (1 - 1-dose 75+ series) 2027 COLORECTAL SCREENING 07/24/2033 07/24/2023, 08/17/2019, 08/17/2019, Additional history exists Colorectal Cancer Screening 07/24/2033 OSTEOPOROSIS SCREENING Completed 11/29/2022, 2020 Insurance MEDICARE PART A AND B AETNA MEDICARE SUPP AESSI Care Teams Color Weigher Relationship Specialty Start Date End Date Rinku Beasley MD [address] [place] [address] PCP - General Internal Medicine 05/22/23
[2024-11-03 08:43] LABS: Basophils Percent Auto 0.4 % (0.2-1.2); Eosinophils Absolute Auto 0.3 K/mm3 (0-0.3); Eosinophils Percent Auto 3.8 % (0-4.4); Hematocrit 36.9 % (37.0-47.0); Immature Granulocyte Absolute 0.01 K/mm3 (0.00-0.031); Immature Granulocyte Percent A 0.1 % (0-0.5); Lymphocytes Absolute Auto 1.83 K/mm3 (0.9-3.2); Mean Corpuscular HGB Conc 32.5 g/dl (32-36); Mean Corpuscular Hemoglobin 29.5 pg (26-34); Mean Corpuscular Volume 90.7 fl (80-100); Mean Platelet Volume 9.1 fl (7.4-10.4); Monocytes Absolute Auto 0.7 K/mm3 (0.1-0.6); Monocytes Percent Auto 9.9 % (2.6-8.5); Neutrophils Absolute Auto 4.2 K/mm3 (1.3-6.7); Neutrophils Percent Auto 59.8 % (45.5-73.1); Platelet Count Result 373 k/mm3 (150-375); Red Blood Count 4.07 M/mm3 (4.2-5.4); Red Cell Distribution Width 12.5 % (11.5-14.5)
[2024-11-03 10:47] LABS: Iron 144 ug/dL (37-170)
[2024-11-03 10:49] LABS: Anion Gap 11 mmol/L (4-12); Blood Urea Nitrogen 17 mg/dL (7-17); Calcium 9.6 mg/dL (8.4-10.2); Carbon Dioxide 24 mmol/L (22-30); Chloride 103 mmol/L (98-107); Estimated Glomerular Filt Rate 58; Glucose 95 mg/dL (65-110); Potassium 4.5 mmol/L (3.4-5.0); Sodium 138 mmol/L (137-145)
[2024-11-03 11:00] LABS: Percent Iron Saturation 46 % (20-50)
[2024-11-03 12:07] LABS: Folic Acid > 20.0 ng/mL (2.76->20); Vitamin B12 > 1000.0 pg/mL (239-931)
== END 2024-11-03 08:07 | disposition home or self-care (01) ==
LOC: ANHLAB 08:07
PROVIDERS: PCP Internal Medicine; Visit Provider Internal Medicine Hematology & Oncology
DX: D64.9 Anemia, unspecified (principal)
CPT/HCPCS: 36415; 80048; 82607; 82728; 82746; 83540; 83550; 85025

== ENCOUNTER 2024-11-19 07:43 | Outpatient (CLI) | payer MEDICARE, SELFPAY ==
[2024-11-19 07:56] LABS: Hematocrit 35.9 % (35.0-42.0); Hemoglobin 11.5 g/dL (11.7-13.8); Mean Corpuscular Hemoglobin 29.2 pg (27.0-31.0); Mean Corpuscular Volume 91.1 fL (78.0-102.0); Mean Platelet Volume 8.5 fl (9.2-11.8); Platelet Count Result 326 K/mm3 (150-420); Red Blood Count 3.94 M/mm3 (4.20-5.40); Red Cell Distribution Width 12.3 % (11.6-14.4); White Blood Count 6.9 K/mm3 (4.8-10.8)
[2024-11-19 08:32] LABS: Add Urine Microscopic? YES; Appearance Urine Clear (Clear); Bilirubin Urine Negative (Negative); Blood Urine Trace-intact (Negative); Color Urine Light Yellow (Yellow); Glucose Urine UA Negative (Negative); Ketones Urine Negative (Negative); Leukocyte Esterase Ur 1+ (Negative); Nitrate Urine Negative (Negative); Protein Urine Negative (Negative); Specific Grav Ur 1.015 (1.010-1.020); Urobilinogen Urine 0.2 mg/dL (0.2-1.0)
[2024-11-19 08:41] LABS: Bacteria Urine Trace /hpf; RBC Urine 0-2 /hpf (0-2); Renal Epithelial Cells Urine Occasional /hpf; Squamous Epithelial Cell Urine Few /hpf (Few)
[2024-11-19 09:32] LABS: Alanine Aminotransferase 18 U/L (14-59); Albumin Level 3.7 g/dL (3.4-5.0); Alkaline Phosphatase 69 U/L (46-116); Anion Gap 10 mmol/L (4-12); Aspartate Amino Transferase 14 U/L (15-37); Bilirubin,Total 0.3 mg/dL (0.00-1.00); Blood Urea Nitrogen 13 mg/dL (7-18); Calcium 9.1 mg/dL (8.5-10.1); Carbon Dioxide 29 mmol/L (21-32); Chloride 103 mmol/L (98-108); Cholesterol 221 mg/dL (0-200); Estimated Glomerular Filt Rate 52; Ferritin 130 ng/mL (8-252); Free T4 Free Thyroxine 0.92 ng/dL (0.76-1.46); Glucose 92 mg/dL (70-99); HDL Direct 59 mg/dL (40-60); Iron 54 ug/dL (50-170); LDL Cholesterol Calculated 129 mg/dL (<130); Magnesium 2.1 mg/dL (1.8-2.4); Osmolality Calculated 294 mOsm/kg (285-295); Potassium 4.4 mmol/L (3.5-5.1); Sodium 142 mmol/L (136-145); Thyroid Stimulating Hormone 1.18 uIU/mL (0.36-3.74); Triglycerides 165 mg/dL (0-150); Vitamin B12 1404 pg/mL (193-986)
== END 2024-11-19 07:44 | disposition home or self-care (01) ==
LOC: CHSLAB 07:45
PROVIDERS: PCP Internal Medicine; Visit Provider Internal Medicine
DX: R94.6 Abnormal results of thyroid function studies (principal); M81.0 Age-related osteoporosis without current pathological fracture; E78.2 Mixed hyperlipidemia; I10 Essential (primary) hypertension; D64.9 Anemia, unspecified; I48.19 Other persistent atrial fibrillation
CPT/HCPCS: 36415; 80053; 80061; 81001; 82607; 82728; 83540; 83735; 84439; 84443; 85027

== ENCOUNTER 2024-12-01 09:16 | Outpatient (CLI) | payer MEDICARE, SELFPAY ==
--- NOTE | ~2024-12-01 | DEXA_ITS ---
Bone Density Report Name: VICTOR HUGO JONES Age: 74 Sex: Female Ethnicity: White Date of : 1950 Indication: osteopenia; height loss; secondary osteoporosis; Referring Provider: Rinku Beasley Study: Bone densitometry was performed. Exam Date: December 01, 2024 Accession number: [id number] Bone Density: Region BMD T-score Z-score Classification Femoral Neck (Left) 0.645 -1.8 0.1 Osteopenia Total Hip (Left) 0.773 -1.4 0.2 Osteopenia Femoral Neck (Right) 0.595 -2.3 -0.4 Osteopenia Total Hip (Right) 0.776 -1.4 0.3 Osteopenia Femoral Neck Mean 0.620 -2.1 -0.1 Osteopenia Total Hip Mean 0.774 -1.4 0.3 Osteopenia World Health Organization criteria for BMD impression classify patients as: Normal (T-score at or above -1.0), Osteopenia (T-score between -1.0 and -2.5), or Osteoporosis (T-score at or below -2.5). 10-year Fracture Risk(1): Major Osteoporotic Fracture 12% Hip Fracture 2.8% Reported Risk Factors: [place] (), Neck BMD=0.595, BMI=39.9, secondary osteoporosis (1) FRAX(R) Version 3.08. Fracture probability calculated for an untreated patient. Fracture probability may be lower if the patient has received treatment. Previous Exams: Region Exam Age BMD T-score BMD Change BMD Change Date g/cm2 vs Baseline vs Previous Total Hip(Left) 12/01/2024 74 0.773 -1.4 -0.002 (-0.2%) -0.004 (-0.5%) 11/29/2022 72 0.777 -1.4 0.003 (0.3%)# 0.003 (0.3%)# 10/25/2020 70 0.774 -1.4 Total Hip(Right) 12/01/2024 74 0.776 -1.4 0.010 (1.2%) -0.006 (-0.8%) 11/29/2022 72 0.782 -1.3 0.016 (2.0%)# 0.016 (2.0%)# 10/25/2020 70 0.766 -1.4 *Denotes significance at 95% confidence level, LSC for Total Hip = 0.027 g/cm2 # Denotes dissimilar scan types or analysis methods Clinical Information Provided by Patient: Has secondary osteoporosis Has used the following medications: Vitamin D, Calcium Patient maximum height was 65 Menopause Age: 55 No regular weight bearing exercise Does not regularly consume dairy products Drinks caffeinated beverages Onset of menses at age 16 Number of children 2 Impression: The patient has low bone mass, based on the Right Femoral Neck T-score. No significant bone loss was observed. Discussion: BONE DENSITY IS LOW AT ONE OR MORE SKELETAL SITES. This patient's lowest T-score is low at one or more skeletal sites. It meets the World Health Organization's (WHO) criteria for ?low bone mass? (T-score between -1.0 and -2.5). The patient's 10-year risk of fracture as calculated by FRAX is less than the threshold where pharmacological therapy is recommended by the National Osteoporosis Foundation (NOF). However, all treatment decisions require clinical judgment and consideration of individual patient factors, including patient preferences, comorbidities, previous drug use, risk factors not captured in the FRAX model (e.g., frailty, falls, vitamin D deficiency, increased bone turnover, interval significant decline in bone density) and possible under or overestimation of fracture risk by FRAX. The patient should follow a healthful lifestyle (good nutrition with adequate calcium and vitamin D, and appropriate weight-bearing exercise). Follow-Up: Consider repeating this study in 2 to 3 years to reassess this patient's status, or sooner if there is some new clinical indication. Reported by: MAYRA on 12/01/2024 10:49:00 AM. Reviewed, dictated and finalized at location A.
--- OUTSIDE RECORDS SUMMARY | 2024-12-01 10:00 | XMS_ITS | Patient Health Summary ---
Author Organization [facility] Address [address] [place] [address] Care Team Providers Care Sales And Leasing Agent Name Role Phone Rinku Beasley MD Primary Care Provider [phone] Note from [facility],non-owned Affiliates and Associated Physician Practices is amultiple site organization consisting of ambulatory clinics and hospital sitesin [place], [place], [place] and [place]. This disclosure is being madepursuant to the Care Everywhere program and may not contain all information available regarding this patient. Last updated 18.[facility] Allergies * Hydrocodone(Itching) Medications * Be aware [...] daily * vitamine D3 (Cholecalciferol) 250 MCG (95990 UT) capsule Take 1 Units by mouth [...] Comments Blood Pressure 128/86 08/07/2022 11:26 AM VIRTUAL REALITY SPECIALIST Pulse 81 08/07/2022 11:26 AM VIRTUAL REALITY SPECIALIST Temperature - - Respiratory Rate - - Oxygen Saturation - - Inhaled Oxygen Concentration - - Weight 106.4 kg (234 lb 9.6 oz) 022 11:26 AM VIRTUAL REALITY SPECIALIST Height 160 cm (5' 3 ) 08/07/2022 11:26 AM VIRTUAL REALITY SPECIALIST Body Mass Index 41.56 08/07/2022 11:26 AM VIRTUAL REALITY SPECIALIST Procedures * FL SWALLOWING FUNCTION STUDY(Performed 07/02/2022) Performed for Dysphagia, unspecified type * FL LARYNGOSCOPY,FLEX FIBER,DIAGNOSTIC(Performed 06/06/2022) Performed for Dysphagia, unspecified type * CULTURE WOUND+GRAM STAIN(Performed 01/22/2014) * CULTURE WOUND+GRAM STAIN(Performed 01/22/2014) * GRAM STAIN SMEAR(Performed 01/22/2014) Results * FL SWALLOWING FUNCTION STUDY (07/02/2022 1:40 PM CDT) Anatomical Region Laterality Modality Chest Radiographic Anni ging 07/02/2022 1:48 PM CDT Narrative 07/02/2022 4:32 PM CDT PROCEDURE: FL SWALLOWING FUNCTION STUDY, DATE/TIME OF EXAM: 07/02/2022 12:44 PM, LOCATION [facility] INDICATION: R13.10: Dysphagia, unspecified type ADDITIONAL [...] dictated by Alex Elliott MD, MD (radiology physician assistant). Madie Chen MD have personally reviewed and interpreted this examination/study. > Interpreting Provider: Madie Parker MD on 07/02/2022 4:32 PM Procedure Note Aubrie Parker MD - 07/02/2022 PROCEDURE: FL SWALLOWING FUNCTION STUDY, DATE/TIME OF EXAM: 07/02/2022 12:44 PM, LOCATION [facility] INDICATION: R13.10: Dysphagia, unspecified type ADDITIONAL [...] dictated by Alex Elliott MD, MD (radiology physician assistant). Madie Chen MD have personally reviewed and interpreted this examination/study. > Interpreting Provider: Madie Parker MD on 07/02/2022 4:32 PM Jw Quiroz MD FLUOROSCOPY ORDERABL ES * FL LARYNGOSCOPY,FLEX FIBER,DIAGNOSTIC (06/06/2022 5:28 PM CDT) Narrative Jw Quiroz MD - 06/06/2022 5:28 PM CDT Jw Quiroz MD 06/06/2022 5:29 PM Procedure Note Endoscopy Type: Laryngoscopy without stroboscopy [id number] Endoscope: Flexible 4mm Scope Anesthesia: Lidocaine 2% [...] SPECIAL CARE - 01/24/2014 12:53 PM CDT Carinan#[id number] David Loc/Rm/Bed: EXPCARE G// Source: lt axilla [...] Historical Provider LAB - [place] [address], [facility] [phone] * GRAM STAIN SMEAR (01/22/2014 5:00 PM CDT) Gram Stain Many Gram positive cocci in pairs and clusters [facility] Wound 01/22/2014 5:00 PM CDT 01/22/2014 9:54 PM CDT Narrative [facility] - 01/23/2014 12:13 AM CDT AndersonSpecimen#[id number] David Loc/Rm/Bed: EXPCARE G// Source: lt axilla Gram Stains are routinely screened for the presence of Polymorphonuclear Cells. Historical Provider LAB - MICROBIOLOG Y ORDERABLES Performing Organization Address City/[facility]/ZIP Co de Phone Number [address] [phone] Care Teams Sales And Leasing Agent Relationship Specialty Start Date End Date Rinku Beasley MD [address] [place] [address] PCP - General 04/19/22
--- OUTSIDE RECORDS SUMMARY | 2024-12-01 10:00 | XMS_ITS | Clinical Summary ---
Author Organization [facility] Address [address] [place] [address] Care Team Providers Care Cable Splicer Apprentice Name Role Phone Rinku Beasley MD Primary Care Provider [phone] Source Comments [facility],non-owned Affiliates and Associated Physician Practices is amultiple site organization consisting of ambulatory clinics and hospital sitesin [place], [place], [place] and [place]. This disclosure is being madepursuant to the Care Everywhere program and may not contain all information available regarding this patient. Last updated 18.[facility] Allergies Active Allergy Reactions Criticality Noted Date [...] daily Active vitamine D3 (Cholecalciferol) 250 MCG (21874 UT) capsule Take 1 Units by mouth [...] Comments Blood Pressure 128/86 08/07/2022 11:26 AM FROG CATCHER Pulse 81 08/07/2022 11:26 AM FROG CATCHER Temperature - - Respiratory Rate - - Oxygen Saturation - - Inhaled Oxygen Concentration - - Weight 106.4 kg (234 lb 9.6 oz) 022 11:26 AM FROG CATCHER Height 160 cm (5' 3 ) 08/07/2022 11:26 AM FROG CATCHER Body Mass Index 41.56 08/07/2022 11:26 AM FROG CATCHER Plan of Treatment Health Maintenance Due Date [...] age to complete this topic Care Teams Cable Splicer Apprentice Relationship Specialty Start Date End Date Rinku Beasley MD [address] [place] [address] [facility] - General 04/19/22
--- OUTSIDE RECORDS SUMMARY | 2024-12-01 10:00 | XMS_ITS | Clinical Summary ---
Author Organization [facility] Address [address] [place] [address] Care Team Providers Care Kohinoor Operator Name Role Phone Unavailable Primary Care [...]
--- OUTSIDE RECORDS SUMMARY | 2024-12-01 10:00 | XMS_ITS | Encounter Summary ---
Author Organization [facility] Address [address] [place] [address] Care Team Providers Care Circulation Representative Name Role Phone Rinku Beasley MD Primary Care Provider + Encounter Details Date Type Department Care Team (Late st Contact Info) Description 11/28/2024 External Device Data STL ABSTRACTION Provider, Abstract [...] Care Team (Late st Contact Info) Description 05/10/2025 11:30 AM CDT Office Visit [facility] Oncology and Hematology - [place] [address] [place] [address] [address] [place] [address] Jacinto Arzate MD [address] [place] [address] documented as of this encounter Visit Diagnoses Not on filedocumented in this encounter Care Teams Circulation Representative Relationship Specialty Start Date End Date Rinku Beasley MD [address] [place] [phone] PCP - General Internal Medicine 05/22/23 documented as of this encounter
--- OUTSIDE RECORDS SUMMARY | 2024-12-01 10:00 | XMS_ITS | Continuity of Care Document ---
Author Organization [facility] Address [address] [place] [address] Phone Care Team Providers Care Automotive Electrical Helper Name Role Phone Philip, Edward Unavailable Unavailable Advance Directives Directive Yes / No Effective Date File Name No Information Encounters Encounter Description Practice Location Reason(s) For Visit Diagnoses Date Provider Providers Copied on Encounter [facility], [address], [place], [place], [id number], [place] tel:[phone] [facility] No Information Sep-1 0-200 3 Doisy Edward. [address], [place], [address], [place]. tel:[phone] Family History Family Member Type Diagnosis Age At Onset No Information Payers Payer name Insurance type Covered green party ID Authoriza tion(s) [employer] SOI CI [id number] Social History Type Description Quantity Date Captured [...]
--- OUTSIDE RECORDS SUMMARY | 2024-12-01 10:00 | XMS_ITS | Encounter Summary ---
Author Organization [facility] Address [address] [place] [address] Phone Care Team Providers Care Extractor Puller Name Role Phone Rinku Beasley MD Primary Care Provider [phone] Encounter Details Date Type Department Care Team (Late st Contact Info) Description 11/30/2024 11:30 AM CDT Lab [facility] Endocrinology Metabolism and Lipid [address] [facility] 8th [place] [address] [place] [address] High risk medication use Social History Tobacco [...] on file Legal Sex Female 12:33 AM BRIAR WOOD SORTER Gender Identity Not on file Sexual Orientation Not on file documented as of this encounter Plan of Treatment Not on file documented as of this encounter Procedures Procedure Name Priority Date/Time Associated Diagnosis Comments BASIC METABOLIC PANEL Routine 11/30/2024 10:58 AM CDT High risk medication use documented in this encounter Results * (ABNORMAL) Basic metabolic panel (11/30/2024 10:58 AM CDT) Glucose 96 64 - 99 mg/dL [facility] Comment: NONFASTING GLUCOSE RANGE = 64-199 mg/dL FASTING GLUCOSE 64 - 99 = NORMAL FASTING GLUCOSE 100 - 125 = IMPAIRED FASTING GLUCOSE FASTING GLUCOSE >=126 = PROVISIONAL DIAGNOSIS OF DIABETES Potassium 4.3 3.3 - 5.1 mmol/L [facility] Creatinine 1.01 0.60 - 1.10 mg/dL [facility] BUN 11 7 - 23 mg/dL [facility] Sodium 143 135 - 145 mmol/L [facility] Chloride 106 95 - 107 mmol/L [facility] CO2 Content 27 21 - 29 mmol/L [facility] Calcium 9.8 8.6 - 10.3 mg/dL [facility] eGFR 59.1(L) >60.0 mL/min/1.7 3 m2 [facility] Blood 11/30/2024 10:5 8 AM CDT 11/30/2024 11:25 AM CDT us Rachel Sharma CERAMIC TILE SETTER LAB BLOOD ORDERABLES Fin al Result [facility] documented in this encounter Visit Diagnoses Diagnosis High risk medication use documented in this encounter Care Teams Extractor Puller Relationship Specialty Start Date End Date Rinku Beasley MD [address] [place] [address] PCP - General 09/08/19 documented as of this encounter
--- OUTSIDE RECORDS SUMMARY | 2024-12-01 10:00 | XMS_ITS | Clinical Summary ---
Author Organization [facility] Address [address] [place] [address] Phone Care Team Providers Care Feed Project Engineer Name Role Phone Rinku Beasley MD Primary Care Provider [phone] Laurie Wilkins APRN, CRICKET COACH Unavailable Allergies Active Allergy Reactions Criticality Noted [...] Take 1,000 mg by mouth daily. Active [place]-3 Fatty Acids (FISH OIL PO) Take 1 [...] Comments Blood Pressure 158/82 11/26/2019 10:00 AM CREDIT INTERN Pulse 74 11/26/2019 10:00 AM CREDIT INTERN Temperature 36.7 C (98 F) 11/26/2019 10:00 AM CREDIT INTERN Respiratory Rate 20 11/26/2019 10:0 0 AM CREDIT INTERN Oxygen Saturation 100% 11/26/2019 10: 00 AM CREDIT INTERN Inhaled Oxygen Concentration - - Weight 98.3 kg (216 lb 12.8 oz) 020 10:00 AM CREDIT INTERN Height 161.3 cm (5' 3.5 ) 11/26/2019 10 :00 AM CREDIT INTERN Body Mass Index 37.8 11/26/2019 10:00 AM CREDIT INTERN Plan of Treatment Health Maintenance Due Date [...] Maintenance Insurance MEDICARE COMMERCIAL GENERIC Care Teams Feed Project Engineer Relationship Specialty Start Date End Date Rinku Beasley MD [address] [place] [address] PCP - General Internal Medicine 05/21/19 Laurie Wilkins APRN, CRICKET COACH [address] [place] [address] Nurse Practitioner Advanced Practice Nurse 12/01/19
--- OUTSIDE RECORDS SUMMARY | 2024-12-01 10:00 | XMS_ITS | Encounter Summary ---
Author Organization [facility] Address [address] [place] [address] Phone Care Team Providers Care Manager Channel Name Role Phone Rinku Beasley MD Primary Care Provider + [phone] Encounter Details Date Type Department Care Team (Late st Contact Info) Description 11/30/2024 Results Follow-Up [facility] Cardiology [facility] Medical Office Building [address] [place] [address] Rachel Sharma, SINTIA [address] [address] Social History Tobacco Use Types Packs/Day Years [...] on file Legal Sex Female 12:33 AM PUBLIC HEALTH TECHNICIAN Gender Identity Not on file Sexual Orientation Not on file documented as of this encounter Plan of Treatment Not on file documented as of this encounter Visit Diagnoses Not on filedocumented in this encounter Care Teams Manager Channel Relationship Specialty Start Date End Date Rinku Beasley MD [address] [place] [address] PCP - General 09/08/19 documented as of this encounter
--- OUTSIDE RECORDS SUMMARY | 2024-12-01 10:00 | XMS_ITS | Encounter Summary ---
Author Organization [facility] Address [address] [place] [address] Phone Care Team Providers Care Technical Sourcing Recruiter Name Role Phone Rinku Beasley MD Primary Care Provider [phone] Encounter Details Date Type Department Care Team [...] on file Legal Sex Female 12:33 AM CHANGE CONSULTANT Gender Identity Not on file Sexual [...] on filedocumented in this encounter Care Teams Technical Sourcing Recruiter Relationship Specialty Start Date End Date Rinku Beasley MD [address] [place], [place] [id number] PCP - General 09/08/19 documented as of this encounter
--- OUTSIDE RECORDS SUMMARY | 2024-12-01 10:00 | XMS_ITS | Encounter Summary ---
Author Organization [facility] Address [address] [place] [address] Phone Care Team Providers Care Gun Tester Name Role Phone Rinku Beasley MD Primary Care Provider + [phone] Encounter Details Date Type Department Care Team (Late st Contact Info) Description 11/30/2024 10:30 AM CDT Office Visit [facility] Cardiology [address] [facility] 8th [place] [address] [place] [address] Rachel Harris NP [address] [facility] [address] [place] [address] High risk medication use (Primary Dx) Social History Tobacco Use Types [...] on file Legal Sex Female 12:33 AM PUBLISHING AGENT Gender Identity Not on file Sexual Orientation Not on file documented as of this encounter Last Filed Vital Signs Vital Sign Reading Time Taken Comments Blood Pressure 147/71 11/30/2024 10:28 AM CDT Pulse 63 11/30/2024 10:28 AM CDT Temperature - - Respiratory Rate - - Oxygen Saturation 97% 11/30/2024 10:28 AM CDT Inhaled Oxygen Concentration - - Weight 99.8 kg (220 lb) 11/30/2024 10:28 AM CDT Height 160 cm (5' 3 ) 11/30/2024 10:28 AM CDT Body Mass Index 38.97 11/30/2024 10:28 AM CDT documented in this encounter Progress Notes * Rachel Harris, GAME TESTER - 11/30/2024 10:30 AM CDT [facility]THM[facility] CLINIC RETURN OFFICE VISIT Patient ID Lluvia Castaneda 1950 is a 74 y.o. female presenting to the [facility]hythmia Clinic on 11/30/2024. This patients Bead Builder is Dr. Rosas. HISTORY HPI I had the pleasure of seeing Lluvia Castaneda (1950) at the [facility] Cardiac Electrophysiology Service on 11/30/2024, in follow-up for atrial fibrillation. Ms. Castaneda is a 74 y.o. woman with a history of hypertension, obesity (BMI 38.7), and atrial fibrillation. She first presented with AF in the summer of 2020 with a sinus infection and was incidentallyfound to be in AF. She was treated with amiodaorne, metoprolol, and apixaban. Echocardiogram revealed an LV ejection fraction of 0.41. She underwent cardioversion on 07 June 2021 and felt betterin sinus rhythm. Amiodarone was reduced to 200 [...] myocardial perfusion. The patient tells me that, at one point, she was started on flecainide, [...] on a dose of 125mcg twice daily. She states that she had about a 3 day episode of a-fib in Jul 2024. She states that it makes her feel bad although she does not stop what she is doing. Review of Systems As per HPI. All other systems negative. Allergies Allergies Allergen Reactions Hydrocodone-Acetaminophen Hives, Itching and Rash Iohexol Hives, Itching and Rash Red Dye Rash Medications Current Outpatient Medications Medication Sig Dispense Refill acetaminophen (TYLENOL) 325 mg tablet Take 500 mg by mouth daily azelastine (ASTELIN) 137 mcg (0.1 %) nasal spray Administer 1 spray into each nostril daily cranberry fruit extract (CRANBERRY ORAL) Take 500 mg by mouth daily cyanocobalamin, vitamin B-12, 5,000 mcg tablet, sublingual Place under the tongue every other day diphenhydrAMINE (BENADRYL) 25 mg capsule Take 1 [...] tablets (50 mg total) by mouth daily metoprolol XL (TOPROL-XL) 50 mg extended release tablet TAKE 1 TABLET BY MOUTH EVERY DAY 90 tablet 3 ptfhkqrcooqc-ouniitqi-ukephz tablet Take 1 tablet by mouth daily omeprazole (PriLOSEC) 40 mg capsule Take 1 capsule (40 mg total) by mouth daily spironolactone (ALDACTONE) 50 mg tablet Take 1 tablet (50 mg total) by mouth daily TURMERIC ORAL Take 500 mg by mouth daily (Patient not taking: Reported on 08/10/2024) No current facility-administered medications for this visit. Past Medical History Past Medical History: Diagnosis Date Arrhythmia Hypertension No past surgical history on file. PHYSICAL EXAM BP 147/71 (BP Location: Left arm) Pulse 63 Ht 160 cm (5' 3 ) Wt 99.8 kg (220 lb) SpO2 97% BMI 38.97 kg/m?? General: No acute distress. Psychiatric: Normal affect. Skin: No evident lesions. WDI Eyes: No pallor or icterus. Lungs: Clear to auscultation bilaterally. Cardiovascular: RRR Neurologic:Cranial nerves grossly intact. Extremities: no edema no DIAGNOSTIC DATA ECG: Sinus Bradycardia HR 57BPM, QTC 423ms WITHIN NORMAL LIMITS Echo 08/2023 CONCLUSIONS: Normal left ventricular systolic function. No focal wall motion abnormalities. Normal left ventricular size. Mild concentric left ventricular hypertrophy. Indeterminate diastolic function. Ejection fraction is visually estimated at 55-60 %. Ejection fraction is measured at 57 %. Global Longitudinal Strain is -13 %. GLS is abnormal. There is moderate enlargement of left atrium. Mild mitral valve regurgitation. Mild tricuspid regurgitation. Atrial fibrillation. Labs: Lab Results Component Value Date INR 1.25 (H) 11/19/2023 APTT 39 (H) 11/19/2023 No results found for: TROPONINI , CKTOTAL , CKMB , CKMBINDEX , BNP , NTPROBNP Lab Results Component Value Date TSH 0.81 11/19/2023 Lab Results Component Value Date CHOL 212 (H) 11/19/2023 POCCHOL 214 10/08/2023 TRIG 104 11/19/2023 POCTRIG 260 10/08/2023 HDL 55 11/19/2023 POCHDL 57 10/08/2023 LDLCALC 136 (H) 11/19/2023 POCLDL 105 10/08/2023 SCRLDL 132 (A) 10/16/2021 ASSESSMENT/PLAN A-fib- episodes with SOB and fatigue. She is satisfied with staying on the medication. She is not interested in ablation at this time. High risk medications monitoring for high risk side effects. BMP today, no syncope EF as above per echo. EKG stable as above Eliquis 5mg tolerating without bleeding side effects. We will plan routine follow-up in 6 months. Please do not hesitate to call the office with any questions for any questions regarding the care of Ms. Castaneda. Rachel Harris NP 11/30/2024 This note was written using a voice recognition system hardware device. Please note there may be variance in spelling, salinas, and syntax because of the voice recognition system hardware. Therefore,not every sentence has been reviewed in its entirety. If there are any concerns about verbage aboveplease contact Rachel Harris at [phone]. documented in this encounter Miscellaneous Notes * Addendum Note - Rachel Harris NP - 11/30/2024 10:30 AM CDTAddended by: RACHEL HARRIS on: 11/30/2024 10:51 AM Modules accepted: Orders documented in this encounter Plan of Treatment Not on file documented as of this encounter Procedures Procedure Name Priority Date/Time Associated Diagnosis Comments ECG 12-LEAD Routine 11/30/2024 10:23 AM CDT High risk medication use documented in this encounter Results * (ABNORMAL) Basic metabolic panel (11/30/2024 10:58 AM CDT) [facility] Glucose 96 64 - 99 mg/dL [facility] [...] CDT 11/30/2024 11:25 AM CDT us Rachel Harris GAME TESTER LAB BLOOD ORDERABLES Fin al Result [facility] * ECG 12 lead (11/30/2024 10:23 AM CDT) us Rachel Harris GAME TESTER ECG ORDERABLES Edited R esult - Final documented in this encounter Visit Diagnoses Diagnosis High risk medication use- Primary documented in this encounter Care Teams Gun Tester Relationship Specialty Start Date End Date Rinku Beasley MD [address] [place] [id number] PCP - General 09/08/19 documented as of this encounter
--- OUTSIDE RECORDS SUMMARY | 2024-12-01 10:00 | XMS_ITS | Referral Summary ---
Author Organization [facility] Address [address] [place] [address] Care Team Providers Care Power Equipment Mechanics Instructor Name Role Phone Rinku Beasley MD Primary Care Provider [phone] Source Comments [facility],non-owned Affiliates and Associated Physician Practices is amultiple site organization consisting of ambulatory clinics and hospital sitesin [place], [place], [place] and [place]. This disclosure is being madepursuant to the Care Everywhere program and may not contain all information available regarding this patient. Last updated 18.[facility] Allergies Active Allergy Reactions Criticality Noted Date [...] daily Active vitamine D3 (Cholecalciferol) 250 MCG (55286 UT) capsule Take 1 Units by mouth [...] Comments Blood Pressure 128/86 08/07/2022 11:26 AM SHEETMETAL WORKER Pulse 81 08/07/2022 11:26 AM SHEETMETAL WORKER Temperature - - Respiratory Rate - - Oxygen Saturation - - Inhaled Oxygen Concentration - - Weight 106.4 kg (234 lb 9.6 oz) 022 11:26 AM SHEETMETAL WORKER Height 160 cm (5' 3 ) 08/07/2022 11:26 AM SHEETMETAL WORKER Body Mass Index 41.56 08/07/2022 11:26 AM SHEETMETAL WORKER Plan of Treatment Not on file Care Teams Power Equipment Mechanics Instructor Relationship Specialty Start Date End Date Rinku Beasley MD [address] [place] [address] PCP - General 04/19/22
--- OUTSIDE RECORDS SUMMARY | 2024-12-01 10:01 | XMS_ITS | Referral Summary ---
Author Organization [facility] Address [address] [place] [address] Care Team Providers Care Media Relations Director Name Role Phone Rinku Beasley MD Primary Care Provider Encounters Date Type Department Care Team Description 11/30/2024 11:30 AM CDT Lab [facility] Endocrinology Metabolism and Lipid [address] [place] [address] [place] [address] [place] [address] High risk medication use 11/30/2024 Results Follow-Up [facility] Cardiology [facility] Medical Office Building [address] [place] [address] Rachel Sharma NP 11/30/2024 10:30 AM CDT Office Visit [address] [place] [address] Rachel Sharma NP High risk medication use (Primary Dx) 10/09/[address] [place] [address] Idris Rosas MD PhD 10/01/2024 Orders Only [facility] CARDIOLOGY Idris Rosas MD PhD 10/01/[address] [place] [address] [place] [address] Idris Rosas MD PhD from Last 3 Months Allergies Active Allergy Reactions Criticality Noted Date Comments Hydrocodone-Acetaminophen Hives,Itching,Rash High Iohexol Hives,Itching,Rash High 11/09/2024 Red Dye Rash Medium 06/01/2019 Medications acetaminophen [...] A DAY 180 capsule 2 4 Active metoprolol XL (TOPROL-XL) 50 mg extended release tablet TAKE 1 TABLET BY MOUTH EVERY DAY 90 tablet 3 5 Active Active Problems Problem Noted Date Diagnosed Date High risk medication use 06/02/2024 Atrial fibrillation 11/19/2023 Assessment & Plan (11/21/2023 10:19 AM MEDICAL ASSISTANT INTERNAL MEDICINE): History of symptomatic atrial fibrillation and rapid [...] Assessment & Plan (11/20/2023 3:13 PM MEDICAL ASSISTANT INTERNAL MEDICINE): History of symptomatic atrial fibrillation and rapid [...] Assessment & Plan (11/21/2023 10:19 AM MEDICAL ASSISTANT INTERNAL MEDICINE): Normotensive on admission -continue home spironolactone 50 mg daily Assessment & Plan (11/20/2023 3:11 PM MEDICAL ASSISTANT INTERNAL MEDICINE): Normotensive on admission -continue home spironolactone 50 mg daily Morbid obesity with BMI of 40.0-44.9, adult 10/25 TAZ on CPAP 07/18/2023 Assessment & Plan (11/21/2023 10:19 AM MEDICAL ASSISTANT INTERNAL MEDICINE): -continue evening CPAP Assessment & Plan (11/19/2023 9:10 PM MEDICAL ASSISTANT INTERNAL MEDICINE): -continue evening CPAP Nonrheumatic mitral valve regurgitation 07/18/20 23 Paroxysmal atrial fibrillation 07/11/2021 Class 2 obesity with body ma ss index (BMI) of 38.0 to 38.9 in adult 05/25/2021 Assessment & Plan (11/21/2023 10:19 AM MEDICAL ASSISTANT INTERNAL MEDICINE): Contributing towards TAZ and AF -encouraged weight loss and caloric restriction Assessment & Plan (11/19/2023 9:11 PM MEDICAL ASSISTANT INTERNAL MEDICINE): Contributing towards TAZ and AF -encouraged weight loss and caloric restriction Immunizations Immunization Administration Dates Next Due Influenza, Quadrivalent, Hig [...] file Legal Sex Female 12:33 AM MEDICAL ASSISTANT INTERNAL MEDICINE Gender Identity Not on file Sexual Orientation Not on file Last Filed Vital Signs Vital Sign Reading Time Taken Comments Blood Pressure 147/71 11/30/2024 10:28 AM CDT Pulse 63 11/30/2024 10:28 AM CDT Temperature 36.3 C (97.3 F) 11/22/2023 6:52 AM MEDICAL ASSISTANT INTERNAL MEDICINE Respiratory Rate 16 11/22/2023 8:50 AM MEDICAL ASSISTANT INTERNAL MEDICINE Oxygen Saturation 97% 11/30/2024 10:28 AM CDT Inhaled Oxygen Concentration - - Weight 99.8 kg (220 lb) 11/30/2024 10:28 AM CDT Height 160 cm (5' 3 ) 11/30/2024 10:28 AM CDT Body Mass Index 38.97 11/30/2024 10:28 AM CDT Plan of Treatment Not on file Medical Devices Implanted Type Area Yard Conductor Device Identifier Shelf Expiration Date Model / Serial / Lot Nail Nail N/A: Back Description:L4-L5 Procedures Procedure Name Priority Date/Time Associated Diagnosis Comments BASIC METABOLIC PANEL Routine 11/30/2024 10:58 AM CDT High risk medication use ECG 12-LEAD Routine 11/30/2024 10:23 AM CDT High risk medication use CARDIOLOGY DOCUMENT SCAN 10/01/2024 8:07 AM MEDICAL ASSISTANT INTERNAL MEDICINE from Last 3 Months Results * (ABNORMAL) Basic metabolic panel (11/30/2024 [...] 11/30/2024 11:25 AM CDT us Rachel Sharma COMMUNITY DEVELOPMENT DIRECTOR LAB BLOOD ORDERABLES Fin al Result [facility] * ECG 12 lead (11/30/2024 10:23 AM CDT) us Rachel Sharma COMMUNITY DEVELOPMENT DIRECTOR ECG ORDERABLES Edited R esult - Final * Cardiology Document Scan (10/01/2024 8:07 AM MEDICAL ASSISTANT INTERNAL MEDICINE) Anatomical Region Laterality Modality Other us Idris Rosas MD PhD CV CARDIAC SERVICES PROCEDURES Final Result from Last 3 Months Insurance MEDICARE [facility] MEDICARE MEDICARE [employer] SENIOR SUPPLEMENT Advance Directives For more information, please contact: [phone] * Full Code (Latest Code Status on File) Date Activated Date Inactivated Comments 11/19/2023 9:00 PM 11/22/2023 6:04 PM Care Teams Media Relations Director Relationship Specialty Start Date End Date Rinku Beasley MD [address] [place] [address] PCP - General 09/08/19
--- OUTSIDE RECORDS SUMMARY | 2024-12-01 10:01 | XMS_ITS | Clinical Summary ---
Author Organization [facility] Address [address] [place] [address] Care Team Providers Care Vaccine Key Customer Leader Name Role Phone Rinku Beasley MD Primary Care Provider + Allergies Active Allergy Reactions Criticality Noted Date Comments Hydrocodone-Acetaminophen Hives,Itching,Rash High Iohexol Hives,Rash,Itching High 11/09/2024 Medications acetaminophen (TYLENOL) 325 mg tablet Take [...] capsule Take 25 mg by mouth. Active beeaqir-zbsn-zm yrm-krsr-rmhamh 100 mg-150 mg- 50 mg-150 mg Capsule Take by mouth. Activ e Cranberry 500 mg Capsule Take by mouth. Acti ve dofetilide (TIKOSYN) 125 mcg capsule Take 125 mcg by mouth 2 times daily. 4 Active fluticasone propionate (FLONASE) 50 mcg/spray [place], Suspension nasal inhaler Administer 2 Sprays in each nostril daily. Active azelastine (ASTELIN) 137 mcg/actuation nasal spray Administer 1 [place] in each nostril daily. Active Active Problems No known active problems Encounters Date Type Department Care Team Description 11/28/2024 External Device Data STL ABSTRACTION Provider, Abstract 11/27/2024 External Device Data STL ABSTRACTION Provider, Abstract 11/24/2024 External Device Data STL ABSTRACTION Provider, Abstract 11/10/2024 External Device Data STL ABSTRACTION Provider, Abstract 11/09/2024 1:15 PM ADMINISTRATIVE LIBRARY ASSISTANT Office Visit [facility] Oncology and Hematology - [place] [address] [facility] [address] [address] Jacinto Arzate MD Chronic anemia (Primary Dx) 10/15/2024 External Device Data STL ABSTRACTION Provider, [...] Sign Reading Time Taken Comments Blood Pressure 132/76 11/09/2024 1:05 PM ADMINISTRATIVE LIBRARY ASSISTANT Pulse 61 11/09/2024 1:05 PM ADMINISTRATIVE LIBRARY ASSISTANT Temperature 36.2 C (97.1 F) 11/09/2024 1:05 PM ADMINISTRATIVE LIBRARY ASSISTANT Respiratory Rate 15 11/09/2024 1:05 PM ADMINISTRATIVE LIBRARY ASSISTANT Oxygen Saturation 90% 11/09/2024 1:05 PM ADMINISTRATIVE LIBRARY ASSISTANT Inhaled Oxygen Concentration - - Weight 99.3 kg (219 lb) 11/09/2024 1:05 PM ADMINISTRATIVE LIBRARY ASSISTANT Height 160 cm (5' 3 ) 08/12/2023 9:42 AM ADMINISTRATIVE LIBRARY ASSISTANT Body Mass Index 38.79 08/12/2023 9:42 AM ADMINISTRATIVE LIBRARY ASSISTANT Plan of Treatment Upcoming Encounters Date Type Department Care Team (Late st Contact Info) Description 05/10/2025 11:30 AM CDT Office Visit [facility] Oncology and Hematology [facility] [address] [facility] [address] [place] [address] Jacinto Arzate MD [address] [facility] [address] [place] [address] Health Maintenance Due Date Last Done Comments DTAP/TDAP/TD VACCINES (1 - Tdap) 1971 BREAST CANCER SCREENING 1992 FIT-DNA Q 3 years 1997 FIT/FOBT Q 1 year 1997 Flex Sig/CT Colonography Q 5 years 1997 PNEUMOCOCCAL VACCINE 50+ YEA RS (1 of 1 - PCV) 2002 ZOSTER VACCINE (1 of 2) 2002 INFLUENZA VACCINE (#1) 2024 RSV VACCINE (60+ or ) (1 - 1-dose 75+ series) 2027 COLORECTAL SCREENING 07/24/2033 07/24/2023, 08/17/2019, 08/17/2019, Additional history exists Colorectal Cancer Screening 07/24/2033 OSTEOPOROSIS SCREENING Completed 11/29/2022, 2020 Insurance MEDICARE PART A AND B [employer] MEDICARE SUPP AESSI Care Teams Vaccine Key Customer Leader Relationship Specialty Start Date End Date Rinku Beasley MD [address] [place] [address] PCP - General Internal Medicine 05/22/23
--- OUTSIDE RECORDS SUMMARY | 2024-12-01 10:01 | XMS_ITS | Clinical Summary ---
Author Organization [facility] Address [address] [place] [address] Care Team Providers Care Chemical Engineering Intern Name Role Phone Rinku Beasley MD Primary Care Provider [phone] Allergies Active Allergy Reactions Criticality Noted Date [...] 11/19/2023 Assessment & Plan (11/21/2023 10:19 AM WATER SOFTENER SERVICE SUPERVISOR): History of symptomatic atrial fibrillation and rapid [...] -telemetry Assessment & Plan (11/20/2023 3:13 PM WATER SOFTENER SERVICE SUPERVISOR): History of symptomatic atrial fibrillation and rapid [...] 11/19/2023 Assessment & Plan (11/21/2023 10:19 AM WATER SOFTENER SERVICE SUPERVISOR): Normotensive on admission -continue home spironolactone 50 mg daily Assessment & Plan (11/20/2023 3:11 PM WATER SOFTENER SERVICE SUPERVISOR): Normotensive on admission -continue home spironolactone 50 mg daily Morbid obesity with BMI of 40.0-44.9, adult 10/25 TAZ on CPAP 07/18/2023 Assessment & Plan (11/21/2023 10:19 AM WATER SOFTENER SERVICE SUPERVISOR): -continue evening CPAP Assessment & Plan (11/19/2023 9:10 PM WATER SOFTENER SERVICE SUPERVISOR): -continue evening CPAP Nonrheumatic mitral valve regurgitation 07/18/20 23 Paroxysmal atrial fibrillation 07/11/2021 Class 2 obesity with body ma ss index (BMI) of 38.0 to 38.9 in adult 05/25/2021 Assessment & Plan (11/21/2023 10:19 AM WATER SOFTENER SERVICE SUPERVISOR): Contributing towards TAZ and AF -encouraged weight loss and caloric restriction Assessment & Plan (11/19/2023 9:11 PM WATER SOFTENER SERVICE SUPERVISOR): Contributing towards TAZ and AF -encouraged weight loss and caloric restriction Encounters Date Type Department Care Team Description 11/30/2024 11:30 AM CDT Lab [facility] Endocrinology Metabolism and Lipid [address]th [place] [address] [place] [address] High risk medication use 11/30/2024 10:30 AM CDT Office Visit [facility] Cardiology [address] [place] [address] [place] [address] Rachel Sharma NP High risk medication use (Primary Dx) 11/30/2024 Results Follow-Up [facility] Cardiology [facility] Medical Office Building [address] [place] [address] Rachel Sharma, SINTIA 10/09/2024 Telephone [facility] Cardiology [address]th [place] [address] [place] [phone] Idris Rosas MD PhD 10/01/2024 Orders Only [facility] Idris Rosas MD PhD 10/01/2024 Telephone [facility] Cardiology [address] [place] [address] [place] [phone] Idris Rosas MD PhD from Last 3 Months Immunizations Immunization Administration Dates Next Due Influenza, [...] on file Legal Sex Female 12:33 AM WATER SOFTENER SERVICE SUPERVISOR Gender Identity Not on file Sexual Orientation Not on file Obstetrics History Last Filed Vital Signs Vital Sign Reading Time Taken Comments Blood Pressure 147/71 11/30/2024 10:28 AM CDT Pulse 63 11/30/2024 10:28 AM CDT Temperature 36.3 C (97.3 F) 11/22/2023 6:52 AM WATER SOFTENER SERVICE SUPERVISOR Respiratory Rate 16 11/22/2023 8:50 AM WATER SOFTENER SERVICE SUPERVISOR Oxygen Saturation 97% 11/30/2024 10:28 AM CDT Inhaled Oxygen Concentration - - Weight 99.8 kg (220 lb) 11/30/2024 10:28 AM CDT Height 160 cm (5' 3 ) 11/30/2024 10:28 AM CDT Body Mass Index 38.97 11/30/2024 10:28 AM CDT Plan of Treatment Health Maintenance Due Date [...] history exists Medical Devices Implanted Type Area Gate Mortiser Operator Device Identifier Shelf Expiration Date Model / Serial / Lot Nail Nail N/A: Back Description:L4-L5 Procedures Procedure Name Priority Date/Time Associated Diagnosis Comments BASIC METABOLIC PANEL Routine 11/30/2024 10:58 AM CDT High risk medication use ECG 12-LEAD Routine 11/30/2024 10:23 AM CDT High risk medication use CARDIOLOGY DOCUMENT SCAN 10/01/2024 8:07 AM WATER SOFTENER SERVICE SUPERVISOR from Last 3 Months Results * (ABNORMAL) Basic metabolic panel (11/30/2024 10:58 AM CDT) [facility] Glucose 96 64 - 99 mg/dL [facility] Comment: NONFASTING GLUCOSE RANGE = 64-199 mg/dL [...] 11/30/2024 11:25 AM CDT us Rachel Sharma MILK RECEIVER LAB BLOOD ORDERABLES Fin al Result [facility] * ECG 12 lead (11/30/2024 10:23 AM CDT) us Rachel Sharma MILK RECEIVER ECG ORDERABLES Edited R esult - Final * Cardiology Document Scan (10/01/2024 8:07 AM WATER SOFTENER SERVICE SUPERVISOR) Anatomical Region Laterality Modality Other us Idris Rosas MD PhD CV CARDIAC SERVICES PROCEDURES Final Result from Last 3 Months Insurance MEDICARE AETNA SENIOR SUPPLEMENT MEDICARE MEDICARE AETNA SENIOR SUPPLEMENT Advance Directives For more information, please contact: [phone] * Full Code (Latest Code Status on File) Date Activated Date Inactivated Comments 11/19/2023 9:00 PM 11/22/2023 6:04 PM Care Teams Chemical Engineering Intern Relationship Specialty Start Date End Date Rinku Beasley MD [address] [place] [address] PCP - General 09/08/19
== END 2024-12-01 09:17 | disposition home or self-care (01) ==
PROVIDERS: PCP Internal Medicine; Visit Provider Internal Medicine
DX: Z78.0 Asymptomatic menopausal state (principal); M85.89 Other specified disorders of bone density and structure, multiple sites
CPT/HCPCS: 77080

== ENCOUNTER 2024-12-07 08:11 | Outpatient (CLI) | payer MEDICARE, SELFPAY ==
--- NOTE | ~2024-12-07 | MM_ITS ---
EXAMINATION: MM screening ricardo BI w chuck HISTORY: Screening TECHNIQUE: Craniocaudal and mediolateral oblique 3-D tomosynthesis images were obtained and synthetic 2-D images were generated. CAD analysis was submitted and interpreted. COMPARISON: Comparison to multiple prior studies sequentially, with oldest reviewed study dated 07/25. BREAST PARENCHYMAL COMPOSITION: Not dense: There are scattered areas of fibroglandular density. FINDINGS: There is no evidence of suspicious mass, calcification, or architectural distortion to sugg est malignancy in either breast. There has been no suspicious interval change. IMPRESSION: 1. No mammographic evidence of malignancy. 2. Recommend routine screening mammography in one year. BI-RADS Category 1: Negative Reviewed, dictated and finalized at location B.
--- OUTSIDE RECORDS SUMMARY | 2024-12-07 08:24 | XMS_ITS | Patient Health Summary ---
Author Organization [facility] Address [address] [place] [address] Care Team Providers Care Security Operations Center Operator Name Role Phone Rinku Beasley MD Primary Care Provider [phone] Note from [facility],non-owned Affiliates and Associated Physician Practices is amultiple site organization consisting of ambulatory clinics and hospital sitesin [place], [place], [place] and [place]. This disclosure is being madepursuant to the Care Everywhere program and may not contain all information available regarding this patient. Last updated 18.[facility] Allergies * Hydrocodone(Itching) Medications * Be [...] daily * vitamine D3 (Cholecalciferol) 250 MCG (49135 UT) capsule Take 1 Units by mouth [...] Comments Blood Pressure 128/86 08/07/2022 11:26 AM METAL FRAMER Pulse 81 08/07/2022 11:26 AM METAL FRAMER Temperature - - Respiratory Rate - - Oxygen Saturation - - Inhaled Oxygen Concentration - - Weight 106.4 kg (234 lb 9.6 oz) 022 11:26 AM METAL FRAMER Height 160 cm (5' 3 ) 08/07/2022 11:26 AM METAL FRAMER Body Mass Index 41.56 08/07/2022 11:26 AM METAL FRAMER Procedures * FL SWALLOWING FUNCTION STUDY(Performed 07/02/2022) Performed for Dysphagia, unspecified type * OK LARYNGOSCOPY,FLEX FIBER,DIAGNOSTIC(Performed 06/06/2022) Performed for Dysphagia, unspecified type * CULTURE WOUND+GRAM STAIN(Performed 01/22/2014) * CULTURE WOUND+GRAM STAIN(Performed 01/22/2014) * GRAM STAIN SMEAR(Performed 01/22/2014) Results * FL SWALLOWING FUNCTION STUDY (07/02/2022 1:40 PM CDT) Anatomical Region Laterality Modality Chest Radiographic Anni ging 07/02/2022 1:48 PM CDT Narrative 07/02/2022 4:32 PM CDT PROCEDURE: FL SWALLOWING FUNCTION STUDY, DATE/TIME OF EXAM: 07/02/2022 12:44 PM, LOCATION [facility] INDICATION: R13.10: Dysphagia, unspecified type ADDITIONAL CLINICAL [...] dictated by Alex Elliott MD, MD (radiology administrator). Madie Chen MD have personally reviewed and interpreted this examination/study. > Interpreting Provider: Madie Parker MD on 07/02/2022 4:32 PM Procedure Note Aubrie Parker MD - 07/02/2022 PROCEDURE: FL SWALLOWING FUNCTION STUDY, DATE/TIME OF EXAM: 07/02/2022 12:44 PM, LOCATION [facility] INDICATION: R13.10: Dysphagia, unspecified type ADDITIONAL CLINICAL [...] dictated by Alex Elliott MD, MD (radiology administrator). Madie Chen MD have personally reviewed and interpreted this examination/study. > Interpreting Provider: Madie Parker MD on 07/02/2022 4:32 PM Jw Quiroz MD FLUOROSCOPY ORDERABL ES * OK LARYNGOSCOPY,FLEX FIBER,DIAGNOSTIC (06/06/2022 5:28 PM CDT) Narrative Jw Quiroz MD - 06/06/2022 5:28 PM CDT Jw Quiroz MD 06/06/2022 5:29 PM Procedure Note Endoscopy Type: Laryngoscopy without stroboscopy 23999 Endoscope: Flexible 4mm Scope Anesthesia: Lidocaine 2% [...] period is included. 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 Wound 01/22/2014 5:00 PM CDT 01/22/2014 9:54 PM CDT Narrative [facility] - 01/24/2014 12:53 PM CDT Carinan#[id number] David Loc/Rm/Bed: EXPCARE G// Source: lt axilla [...] Historical Provider LAB - [place] [address], [facility] [phone] * GRAM STAIN SMEAR (01/22/2014 5:00 PM CDT) Gram Stain Many Gram positive cocci in pairs and clusters [facility] Wound 01/22/2014 5:00 PM CDT 01/22/2014 9:54 PM CDT Narrative [facility] - 01/23/2014 12:13 AM CDT AndersonSpecimen#[id number] David Loc/Rm/Bed: EXPCARE G// Source: lt axilla Gram Stains are routinely screened for the presence of Polymorphonuclear Cells. Historical Provider LAB - MICROBIOLOG Y ORDERABLES Performing Organization Address City/[facility]/ZIP Co de Phone Number [address] [phone] Care Teams Security Operations Center Operator Relationship Specialty Start Date End Date Rinku Beasley MD [address] [place] [address] PCP - General 04/19/22
--- OUTSIDE RECORDS SUMMARY | 2024-12-07 08:24 | XMS_ITS | Clinical Summary ---
Author Organization [facility] [employer] Address [address] [place] [address] Care Team Providers Care Tile Conduit Layer Name Role Phone Rinku Beasley MD Primary Care Provider [phone] Source Comments [facility] [employer],non-owned Affiliates and Associated Physician Practices is amultiple site organization consisting of ambulatory clinics and hospital sitesin [place], [place], [place] and [place]. This disclosure is being madepursuant to the Care Everywhere program and may not contain all information available regarding this patient. Last updated 18.[facility] [employer] Allergies Active Allergy Reactions Criticality Noted Date [...] daily Active vitamine D3 (Cholecalciferol) 250 MCG (92184 UT) capsule Take 1 Units by mouth [...] Comments Blood Pressure 128/86 08/07/2022 11:26 AM SCHOOL ADJUSTMENT COUNSELOR Pulse 81 08/07/2022 11:26 AM SCHOOL ADJUSTMENT COUNSELOR Temperature - - Respiratory Rate - - Oxygen Saturation - - Inhaled Oxygen Concentration - - Weight 106.4 kg (234 lb 9.6 oz) 022 11:26 AM SCHOOL ADJUSTMENT COUNSELOR Height 160 cm (5' 3 ) 08/07/2022 11:26 AM SCHOOL ADJUSTMENT COUNSELOR Body Mass Index 41.56 08/07/2022 11:26 AM SCHOOL ADJUSTMENT COUNSELOR Plan of Treatment Health Maintenance Due Date [...] to complete this topic MENINGOCOCCAL (Group B) VACC INE SHARED DECISION-MAKING Aged Out No longer eligibl e based on patient's age to complete this topic MENINGOCOCCAL GROUPS A/C/Y/W VACCINE Aged Out No longer eligible b ased on patient's age to complete this topic Care Teams Tile Conduit Layer Relationship Specialty Start Date End Date Rinku Beasley MD [address] [place] [address] PCP - General 04/19/22
--- OUTSIDE RECORDS SUMMARY | 2024-12-07 08:24 | XMS_ITS | Encounter Summary ---
Author Organization [facility] Address [address] [place] [address] Phone Care Team Providers Care Supervisor Uranium Processing Name Role Phone Rinku Beasley MD Primary Care Provider [phone] Encounter Details Date Type Department Care Team (Late st Contact Info) Description 11/30/2024 Results Follow-Up [facility] Cardiology [facility] Medical Office Building [address] [place] [address] Rachel Sharma, SINTIA [address] [address] Social History Tobacco Use Types Packs/Day Years [...] on file Legal Sex Female 12:33 AM FINAL RAIL CUTTER Gender Identity Not on file Sexual Orientation Not on file documented as of this encounter Plan of Treatment Not on file documented as of this encounter Visit Diagnoses Not on filedocumented in this encounter Care Teams Supervisor Uranium Processing Relationship Specialty Start Date End Date Rinku Beasley MD [address] [place] [address] PCP - General 09/08/19 documented as of this encounter
--- OUTSIDE RECORDS SUMMARY | 2024-12-07 08:24 | XMS_ITS | Clinical Summary ---
Author Organization [facility] Address [address] [place] [address] Phone Care Team Providers Care Farmworker Bulbs Name Role Phone Rinku Beasley MD Primary Care Provider Laurie Wilkins APRN, HULL DRAFTER Unavailable Allergies Active Allergy Reactions Criticality Noted [...] Take 1,000 mg by mouth daily. Active [place]-3 Fatty Acids (FISH OIL PO) Take 1 [...] Comments Blood Pressure 158/82 11/26/2019 10:00 AM PICKLE PROCESSOR Pulse 74 11/26/2019 10:00 AM PICKLE PROCESSOR Temperature 36.7 C (98 F) 11/26/2019 10:00 AM PICKLE PROCESSOR Respiratory Rate 20 11/26/2019 10:0 0 AM PICKLE PROCESSOR Oxygen Saturation 100% 11/26/2019 10: 00 AM PICKLE PROCESSOR Inhaled Oxygen Concentration - - Weight 98.3 kg (216 lb 12.8 oz) 020 10:00 AM PICKLE PROCESSOR Height 161.3 cm (5' 3.5 ) 11/26/2019 10 :00 AM PICKLE PROCESSOR Body Mass Index 37.8 11/26/2019 10:00 AM PICKLE PROCESSOR Plan of Treatment Health Maintenance Due Date [...] Maintenance Insurance MEDICARE COMMERCIAL GENERIC Care Teams Farmworker Bulbs Relationship Specialty Start Date End Date Rinku Beasley MD [address] [place] [address] PCP - General Internal Medicine 05/21/19 Laurie Wilkins APRN, HULL DRAFTER [address] [place] [address] Nurse Practitioner Advanced Practice Nurse 12/01/19
--- OUTSIDE RECORDS SUMMARY | 2024-12-07 08:24 | XMS_ITS | Clinical Summary ---
Author Organization [facility] Address [address] [place] [address] Care Team Providers Care Security Program Manager Name Role Phone Unavailable Primary Care Provider [...]
--- OUTSIDE RECORDS SUMMARY | 2024-12-07 08:24 | XMS_ITS | Continuity of Care Document ---
Author Organization [facility] Address [address] [place] [address] Phone Care Team Providers Care Cabinet Assembler Name Role Phone Philip, Edward Unavailable Unavailable Advance Directives Directive Yes / No Effective Date File Name No Information Encounters Encounter Description Practice Location Reason(s) For Visit Diagnoses Date Provider Providers Copied on Encounter [facility], [address], [place], [place], [id number], [place] tel:[phone] [facility] No Information Sep-1 0-200 3 Doisy Edward. [address] , [address], [place], [address], [place]. tel:[phone] Family History Family Member Type Diagnosis Age At Onset No Information Payers Payer name Insurance type Covered green party ID Authoriza tion(s) [employer] SOI CI [id number] Social History Type Description Quantity Date Captured [...]
--- OUTSIDE RECORDS SUMMARY | 2024-12-07 08:24 | XMS_ITS | Encounter Summary ---
Author Organization [facility] Address [address] [place] [address] Phone Care Team Providers Care Gas Scrubber Operator Name Role Phone Rinku Beasley MD Primary Care Provider [phone] Encounter Details Date Type Department Care Team [...] on file Legal Sex Female 12:33 AM SPRAY GUNNER Gender Identity Not on file Sexual Orientation [...] on filedocumented in this encounter Care Teams Gas Scrubber Operator Relationship Specialty Start Date End Date Rinku Beasley MD [address] [place], [place] [address] PCP - General 09/08/19 documented as of this encounter
--- OUTSIDE RECORDS SUMMARY | 2024-12-07 08:24 | XMS_ITS | Referral Summary ---
Author Organization [facility] Address [address] [place] [address] Care Team Providers Care Bi Developer Name Role Phone Rinku Beasley MD Primary Care Provider [phone] Source Comments [facility],non-owned Affiliates and Associated Physician Practices is amultiple site organization consisting of ambulatory clinics and hospital sitesin [place], [place], [place] and [place]. This disclosure is being madepursuant to the Care Everywhere program and may not contain all information available regarding this patient. Last updated 18.[facility] Allergies Active Allergy Reactions Criticality Noted Date [...] daily Active vitamine D3 (Cholecalciferol) 250 MCG (95102 UT) capsule Take 1 Units by mouth [...] Comments Blood Pressure 128/86 08/07/2022 11:26 AM C T TECH Pulse 81 08/07/2022 11:26 AM C T TECH Temperature - - Respiratory Rate - - Oxygen Saturation - - Inhaled Oxygen Concentration - - Weight 106.4 kg (234 lb 9.6 oz) 022 11:26 AM C T TECH Height 160 cm (5' 3 ) 08/07/2022 11:26 AM C T TECH Body Mass Index 41.56 08/07/2022 11:26 AM C T TECH Plan of Treatment Not on file Care Teams Bi Developer Relationship Specialty Start Date End Date Rinku Beasley MD [address] [place] [address] PCP - General 04/19/22
--- OUTSIDE RECORDS SUMMARY | 2024-12-07 08:25 | XMS_ITS | Referral Summary ---
Author Organization [facility] Address [address] [place] [address] Care Team Providers Care Diesel Engine Erector Name Role Phone Rinku Beasley MD Primary Care Provider Encounters Date Type Department Care Team Description 11/30/2024 11:30 AM CDT Lab [facility] Endocrinology Metabolism and Lipid [address] [place] [address] [place] [address] [place] [address] High risk medication use 11/30/2024 Results Follow-Up [facility] Cardiology [facility] Medical Office Building [address] [place] [address] Rachel Sharma NP 11/30/2024 10:30 AM CDT Office Visit [address] [place] [address] Rachel Sharma NP High risk medication use (Primary Dx) 10/09/[address] [place] [address] Idris Rosas MD PhD 10/01/2024 Orders Only [facility] CARDIOLOGY Idris Rosas MD PhD 10/01/[address] [place] [address] [place] [address] Idris Rosas MD PhD from Last 3 [...] 11/19/2023 Assessment & Plan (11/21/2023 10:19 AM MOTORIZED SQUAD LIEUTENANT): History of symptomatic atrial fibrillation and rapid [...] -telemetry Assessment & Plan (11/20/2023 3:13 PM MOTORIZED SQUAD LIEUTENANT): History of symptomatic atrial fibrillation and rapid [...] 11/19/2023 Assessment & Plan (11/21/2023 10:19 AM MOTORIZED SQUAD LIEUTENANT): Normotensive on admission -continue home spironolactone 50 mg daily Assessment & Plan (11/20/2023 3:11 PM MOTORIZED SQUAD LIEUTENANT): Normotensive on admission -continue home spironolactone 50 mg daily Morbid obesity with BMI of 40.0-44.9, adult 10/25 TAZ on CPAP 07/18/2023 Assessment & Plan (11/21/2023 10:19 AM MOTORIZED SQUAD LIEUTENANT): -continue evening CPAP Assessment & Plan (11/19/2023 9:10 PM MOTORIZED SQUAD LIEUTENANT): -continue evening CPAP Nonrheumatic mitral valve regurgitation 07/18/20 23 Paroxysmal atrial fibrillation 07/11/2021 Class 2 obesity with body ma ss index (BMI) of 38.0 to 38.9 in adult 05/25/2021 Assessment & Plan (11/21/2023 10:19 AM MOTORIZED SQUAD LIEUTENANT): Contributing towards TAZ and AF -encouraged weight loss and caloric restriction Assessment & Plan (11/19/2023 9:11 PM MOTORIZED SQUAD LIEUTENANT): Contributing towards TAZ and AF -encouraged weight [...] on file Legal Sex Female 12:33 AM MOTORIZED SQUAD LIEUTENANT Gender Identity Not on file Sexual Orientation Not on file Last Filed Vital Signs Vital Sign Reading Time Taken Comments Blood Pressure 147/71 11/30/2024 10:28 AM CDT Pulse 63 11/30/2024 10:28 AM CDT Temperature 36.3 C (97.3 F) 11/22/2023 6:52 AM MOTORIZED SQUAD LIEUTENANT Respiratory Rate 16 11/22/2023 8:50 AM MOTORIZED SQUAD LIEUTENANT Oxygen Saturation 97% 11/30/2024 10:28 AM CDT Inhaled Oxygen Concentration - - Weight 99.8 kg (220 lb) 11/30/2024 10:28 AM CDT Height 160 cm (5' 3 ) 11/30/2024 10:28 AM CDT Body Mass Index 38.97 11/30/2024 10:28 AM CDT Plan of Treatment Not on file Medical Devices Implanted Type Area Social Group Worker Device Identifier Shelf Expiration Date Model / Serial / Lot Nail Nail N/A: Back Description:L4-L5 Procedures Procedure Name Priority Date/Time Associated Diagnosis Comments BASIC METABOLIC PANEL Routine 11/30/2024 10:58 AM CDT High risk medication use ECG 12-LEAD Routine 11/30/2024 10:23 AM CDT High risk medication use CARDIOLOGY DOCUMENT SCAN 10/01/2024 8:07 AM MOTORIZED SQUAD LIEUTENANT from Last 3 Months Results * (ABNORMAL) [...] 11/30/2024 11:25 AM CDT us Rachel Sharma STOCK HANDLER FLOORPERSON LAB BLOOD ORDERABLES Fin al Result [facility] * ECG 12 lead (11/30/2024 10:23 AM CDT) us Rachel Sharma STOCK HANDLER FLOORPERSON ECG ORDERABLES Edited R esult - Final * Cardiology Document Scan (10/01/2024 8:07 AM MOTORIZED SQUAD LIEUTENANT) Anatomical Region Laterality Modality Other us Idris Rosas MD PhD CV CARDIAC SERVICES PROCEDURES Final Result from Last 3 Months Insurance MEDICARE [facility] MEDICARE MEDICARE AETNA SENIOR SUPPLEMENT Advance Directives For more information, please contact: [phone] * Full Code (Latest Code Status on File) Date Activated Date Inactivated Comments 11/19/2023 9:00 PM 11/22/2023 6:04 PM Care Teams Diesel Engine Erector Relationship Specialty Start Date End Date Rinku Beasley MD [address] [place] [address] PCP - General 09/08/19
--- OUTSIDE RECORDS SUMMARY | 2024-12-07 08:25 | XMS_ITS | Clinical Summary ---
Author Organization [facility] Address [address] [place] [address] Care Team Providers Care Manager Sharepoint Name Role Phone Rinku Beasley MD Primary [...] capsule Take 25 mg by mouth. Active ypnducy-xrsi-ro hkb-gkwc-bxwiil 100 mg-150 mg- 50 mg-150 mg Capsule Take by mouth. Activ e Cranberry 500 mg Capsule Take by mouth. Acti ve dofetilide (TIKOSYN) 125 mcg capsule Take 125 mcg by mouth 2 times daily. 4 Active fluticasone propionate (FLONASE) 50 mcg/spray [place], Suspension nasal inhaler Administer 2 Sprays in each nostril daily. Active azelastine (ASTELIN) 137 mcg/actuation nasal spray Administer 1 Forman in each nostril daily. Active Active Problems No known active problems Encounters Date Type Department Care Team Description 11/28/2024 External Device Data STL ABSTRACTION Provider, Abstract 11/27/2024 External Device Data STL ABSTRACTION Provider, Abstract 11/24/2024 External Device Data STL ABSTRACTION Provider, Abstract 11/10/2024 External Device Data STL ABSTRACTION Provider, Abstract 11/09/2024 1:15 PM ELEVATOR TECHNICIAN Office Visit [facility] Oncology and Hematology - [place] [address] [facility] [address] [address] Jacinto Arzate MD Chronic anemia [...] Comments Blood Pressure 132/76 11/09/2024 1:05 PM ELEVATOR TECHNICIAN Pulse 61 11/09/2024 1:05 PM ELEVATOR TECHNICIAN Temperature 36.2 C (97.1 F) 11/09/2024 1:05 PM ELEVATOR TECHNICIAN Respiratory Rate 15 11/09/2024 1:05 PM ELEVATOR TECHNICIAN Oxygen Saturation 90% 11/09/2024 1:05 PM ELEVATOR TECHNICIAN Inhaled Oxygen Concentration - - Weight 99.3 kg (219 lb) 11/09/2024 1:05 PM ELEVATOR TECHNICIAN Height 160 cm (5' 3 ) 08/12/2023 9:42 AM ELEVATOR TECHNICIAN Body Mass Index 38.79 08/12/2023 9:42 AM ELEVATOR TECHNICIAN Plan of Treatment Upcoming Encounters Date Type Department Care Team (Late st Contact Info) Description 05/10/2025 11:30 AM CDT Office Visit [facility] Oncology and Hematology [facility] [address] [facility] [address] [place] [address] Jacinto Arzate MD [address] [facility] [address] [place] [address] Health Maintenance Due Date Last [...] B AETNA MEDICARE SUPP AESSI Care Teams Manager Sharepoint Relationship Specialty Start Date End Date Rinku Beasley MD [address] [place] [address] PCP - General Internal Medicine 05/22/23
--- OUTSIDE RECORDS SUMMARY | 2024-12-07 08:25 | XMS_ITS | Clinical Summary ---
Author Organization [facility] Address [address] [place] [address] Care Team Providers Care Personalized Living Assistant Name Role Phone Rinku Beasley MD Primary Care Provider [phone] Allergies Active Allergy Reactions Criticality Noted Date [...] 11/19/2023 Assessment & Plan (11/21/2023 10:19 AM OIL WINTERIZER): History of symptomatic atrial fibrillation and rapid [...] -telemetry Assessment & Plan (11/20/2023 3:13 PM OIL WINTERIZER): History of symptomatic atrial fibrillation and rapid [...] 11/19/2023 Assessment & Plan (11/21/2023 10:19 AM OIL WINTERIZER): Normotensive on admission -continue home spironolactone 50 mg daily Assessment & Plan (11/20/2023 3:11 PM OIL WINTERIZER): Normotensive on admission -continue home spironolactone 50 mg daily Morbid obesity with BMI of 40.0-44.9, adult 10/25 TAZ on CPAP 07/18/2023 Assessment & Plan (11/21/2023 10:19 AM OIL WINTERIZER): -continue evening CPAP Assessment & Plan (11/19/2023 9:10 PM OIL WINTERIZER): -continue evening CPAP Nonrheumatic mitral valve regurgitation 07/18/20 23 Paroxysmal atrial fibrillation 07/11/2021 Class 2 obesity with body ma ss index (BMI) of 38.0 to 38.9 in adult 05/25/2021 Assessment & Plan (11/21/2023 10:19 AM OIL WINTERIZER): Contributing towards TAZ and AF -encouraged weight loss and caloric restriction Assessment & Plan (11/19/2023 9:11 PM OIL WINTERIZER): Contributing towards TAZ and AF -encouraged weight loss and caloric restriction Encounters Date Type Department Care Team Description 11/30/2024 11:30 AM CDT Lab [facility] Endocrinology Metabolism and Lipid [address] [facility] 8th [place] [address] [place] [address] High risk medication use 11/30/2024 10:30 AM CDT Office Visit [facility] Cardiology [address] [facility] 8th [place] [address] [place] [address] Rachel Sharma NP High risk medication use (Primary Dx) 11/30/2024 Results Follow-Up [facility] Cardiology [facility] Medical Office Building [address] [place] [address] Rachel Sharma, SINTIA 10/09/2024 Telephone [facility] Cardiology [address] [facility] Medicine 8th [place] [address] [place] [phone] Idris Rosas MD PhD 10/01/2024 Orders Only [facility] Idris Rosas MD PhD 10/01/2024 Telephone [facility] Cardiology [address] [facility] 8th [place] [address] [place] [phone] Idris Rosas MD PhD from Last 3 [...] on file Legal Sex Female 12:33 AM OIL WINTERIZER Gender Identity Not on file Sexual Orientation Not on file Obstetrics History Last Filed Vital Signs Vital Sign Reading Time Taken Comments Blood Pressure 147/71 11/30/2024 10:28 AM CDT Pulse 63 11/30/2024 10:28 AM CDT Temperature 36.3 C (97.3 F) 11/22/2023 6:52 AM OIL WINTERIZER Respiratory Rate 16 11/22/2023 8:50 AM OIL WINTERIZER Oxygen Saturation 97% 11/30/2024 10:28 AM CDT [...] history exists Medical Devices Implanted Type Area Concrete Pointer Device Identifier Shelf Expiration Date Model / Serial / Lot Nail Nail N/A: Back Description:L4-L5 Procedures Procedure Name Priority Date/Time Associated Diagnosis Comments BASIC METABOLIC PANEL Routine 11/30/2024 10:58 AM CDT High risk medication use ECG 12-LEAD Routine 11/30/2024 10:23 AM CDT High risk medication use CARDIOLOGY DOCUMENT SCAN 10/01/2024 8:07 AM OIL WINTERIZER from Last 3 Months Results * (ABNORMAL) Basic metabolic panel (11/30/2024 10:58 AM CDT) [facility] Glucose 96 64 - 99 mg/dL [facility] Comment: NONFASTING GLUCOSE RANGE = 64-199 [...] 11/30/2024 11:25 AM CDT us Rachel Sharma COST ENGINEER LAB BLOOD ORDERABLES Fin al Result [facility] * ECG 12 lead (11/30/2024 10:23 AM CDT) us Rachel Sharma COST ENGINEER ECG ORDERABLES Edited R esult - Final * Cardiology Document Scan (10/01/2024 8:07 AM OIL WINTERIZER) Anatomical Region Laterality Modality Other us Idris Rosas MD PhD CV CARDIAC SERVICES PROCEDURES Final Result from Last 3 Months Insurance MEDICARE AETNA SENIOR SUPPLEMENT MEDICARE MEDICARE AETNA SENIOR SUPPLEMENT Advance Directives For more information, please contact: [phone] * Full Code (Latest Code Status on File) Date Activated Date Inactivated Comments 11/19/2023 9:00 PM 11/22/2023 6:04 PM Care Teams Personalized Living Assistant Relationship Specialty Start Date End Date Rinku Beasley MD [address] [place] [address] PCP - General 09/08/19
== END 2024-12-07 08:12 | disposition home or self-care (01) ==
LOC: CHSIMG 08:13
PROVIDERS: PCP Internal Medicine; Visit Provider Internal Medicine
DX: Z12.31 Encounter for screening mammogram for malignant neoplasm of breast (principal)
CPT/HCPCS: 77063; 77067

== ENCOUNTER 2025-05-06 10:24 | Outpatient (CLI) | payer MEDICARE, SELFPAY ==
--- OUTSIDE RECORDS SUMMARY | 2025-05-06 10:39 | XMS_ITS | Clinical Summary ---
Author Organization [facility] Address [address] [place] [address] Care Team Providers Care Mobile Home Set Up Person Name Role Phone Rinku Beasley MD Primary Care Provider [phone] Allergies Active Allergy Reactions Criticality Noted Date [...] mg total) by mouth daily 2 Active multivitamin-min erals-lutein tablet Take 1 tablet by mouth daily Active fluticasone propionate (FLONASE) 50 mcg/actuation nasal spray Administer 2 sprays into each nostril daily Active azelastine (ASTELIN) 137 mcg (0.1 %) nasal spray Administer 1 spray into each nostril daily 2 Active metoprolol XL (TOPROL-XL) 100 mg 24 hr tablet Take 0.5 tablets (50 mg total) by mouth daily 4 Active Additional Information Patient not taking.Reported on 01/25/2025 cyanocobalamin, vitamin B-12, 5,000 mcg tablet, sublingual Place under the tongue every other day Active ferrous sulfate 325 mg (65 mg of elemental iron) tabletIndication s:Iron Deficiency Anemia Take 1 tablet (325 mg total) by mouth daily with breakfast Active metoprolol XL (TOPROL-XL) 50 mg extended release tablet TAKE 1 TABLET BY MOUTH EVERY DAY 90 tablet 3 5 Active dofetilide (TIKOSYN) 125 mcg capsuleIndicatio ns:Cardioversion of Atrial Fibrillation TAKE 1 CAPSULE (125 MCG TOTAL) BY MOUTH 2 (TWO) TIMES A DAY 180 capsule 2 5 Active omega-3 fatty acids-fish oil 300-1,000 mg capsule Take 2 capsules (2 g total) by mouth daily Active Active Problems Problem Noted Date Diagnosed Date High risk medication use 06/02/2024 Atrial fibrillation 11/19/2023 Assessment & Plan (11/21/2023 10:19 AM SECURITY ASSURANCE ANALYST): History of symptomatic atrial fibrillation and rapid [...] -telemetry Assessment & Plan (11/20/2023 3:13 PM SECURITY ASSURANCE ANALYST): History of symptomatic atrial fibrillation and rapid [...] 11/19/2023 Assessment & Plan (11/21/2023 10:19 AM SECURITY ASSURANCE ANALYST): Normotensive on admission -continue home spironolactone 50 mg daily Assessment & Plan (11/20/2023 3:11 PM SECURITY ASSURANCE ANALYST): Normotensive on admission -continue home spironolactone 50 mg daily Morbid obesity with BMI of 40.0-44.9, adult 10/25 TAZ on CPAP 07/18/2023 Assessment & Plan (11/21/2023 10:19 AM SECURITY ASSURANCE ANALYST): -continue evening CPAP Assessment & Plan (11/19/2023 9:10 PM SECURITY ASSURANCE ANALYST): -continue evening CPAP Nonrheumatic mitral valve regurgitation 07/18/20 23 Paroxysmal atrial fibrillation 07/11/2021 Class 2 obesity with body ma ss index (BMI) of 38.0 to 38.9 in adult 05/25/2021 Assessment & Plan (11/21/2023 10:19 AM SECURITY ASSURANCE ANALYST): Contributing towards TAZ and AF -encouraged weight loss and caloric restriction Assessment & Plan (11/19/2023 9:11 PM SECURITY ASSURANCE ANALYST): Contributing towards TAZ and AF -encouraged weight [...] on file Legal Sex Female 12:33 AM SECURITY ASSURANCE ANALYST Gender Identity Not on file Sexual Orientation Not on file Obstetrics History Last Filed Vital Signs Vital Sign Reading Time Taken Comments Blood Pressure 132/84 01/25/2025 10:39 AM CDT Pulse 59 01/25/2025 10:39 AM CDT Temperature 36.3 C (97.3 F) 11/22/2023 6:52 AM SECURITY ASSURANCE ANALYST Respiratory Rate 16 11/22/2023 8:50 AM SECURITY ASSURANCE ANALYST Oxygen Saturation 92% 01/25/2025 10:39 AM CDT Inhaled Oxygen Concentration - - Weight 99.8 kg (220 lb) 01/25/2025 10:39 AM CDT Height 160 cm (5' 3) 01/25/2025 10:39 AM CDT Body Mass Index 38.97 01/25/2025 10:39 AM CDT Plan of Treatment Health Maintenance Due Date Last Done Comments Breast Cancer Screening-Mammogram 1950 Colon Cancer Screening-Colonoscopy 1950 Depression Screening 1950 Hepatitis C Screening 1950 Osteoporosis Screening-Bone Density Scan 1950 Hepatitis B Screening 1970 Zoster Vaccine (2 of 3) 03/31/2014 02/03/2014 Well Visit 65+ 2017 Fall Risk Assessment 11/21/2024 11/22/2023 Influenza Vaccine (#1) 2025 07/16/2019, 2015 DTaP/Tdap/Td Vaccine (3 - Td or Tdap) 05/23/2026 05/23/2016, 03/17/2009 Pneumococcal vaccine 65+ Completed 018, 07/05/2017, 12/09/2014, Additional history exists Medical Devices Implanted Type Area Retail Sales Director Device Identifier Shelf Expiration Date Model / Serial / Lot Nail Nail N/A: Back Description:L4-L5 [facility] MEDIC[facility] MEDICARE AETNA SENIOR SUPPLEMENT Advance Directives For more information, please contact: [phone] * Full Code (Latest Code Status on File) Date Activated Date Inactivated Comments 11/19/2023 9:00 PM 11/22/2023 6:04 PM Care Teams Mobile Home Set Up Person Relationship Specialty Start Date End Date Rinku Beasley MD [address] [place] [address] PCP - General 09/08/19
--- OUTSIDE RECORDS SUMMARY | 2025-05-06 10:39 | XMS_ITS | Clinical Summary ---
Author Organization [facility] Address [address] [facility] [place] [address] Care Team Providers Care Product Support Engineer Name Role Phone Rinku Beasley MD Primary Care Provider [phone] Source Comments [facility],non-owned Affiliates and Associated Physician Practices is amultiple site organization consisting of ambulatory clinics and hospital sitesin [place], [place], [place] and [place]. This disclosure is being madepursuant to the Care Everywhere program and may not contain all information available regarding this patient. Last updated 18.[facility] Allergies Active Allergy Reactions Criticality Noted Date Comments Hydrocodone Itching 06/05/2022 A LOT OF ITCHING Medications * Be aware that medications may not be up to date on this document. Alwaysverify current medications with the patient. acetaminophen (Tylenol) 325 MG tablet Take 500 mg by mouth once daily Active amiodarone (Cordarone) 200 MG tablet Take 200 mg by mouth 1 Active apixaban (Eliquis) 5 MG tablet Take 5 mg by mouth once daily 1 Active Azelastine HCl 137 MCG/SPRAY SOLN 137 mcg 2 Active B Complex Vitamins CAPS Take 1 capsule by mouth once daily Active vitamine D3 (Cholecalcifero l) 250 MCG (63336 UT) capsule Take 1 Units by mouth once daily Active diphenhydrAMINE (Benadryl) 25 MG capsule Take 25 mg by mouth Active fluticasone propionate (Flonase) 50 MCG/ACT nasal spray INSTILL 2 SPRAY INTRANASALLY TWICE A DAY ADMINISTER INTO EACH NOSTRIL 2 Active furosemide (Lasix) 20 MG tablet Take 20 mg by mouth 1 Active losartan (Cozaar) 50 MG tablet Take 50 mg by mouth once daily 1 Active omeprazole (PriLOSEC) 40 MG capsule Take 40 mg by mouth Active Social History Tobacco Use Types Packs/Day Years Used Date Smoking Tobacco: Never Smokeless Tobacco: Never Tobacco Cessation:Counseling Given: Not Answered Alcohol Use Standard Drinks/Week Comments Never 0 (1 standard drink = 0.6 oz pur e alcohol) Comments Unknown Sex and Gender Information Value Date Recorded Sex Assigned at Not on file Legal Sex Female 6:34 PM ACCOUNT SUPERVISOR Gender Identity Not on file Sexual Orientation Not on file Last Filed Vital Signs Vital Sign Reading Time Taken Comments Blood Pressure 128/86 08/07/2022 11:26 AM ACCOUNT SUPERVISOR Pulse 81 08/07/2022 11:26 AM ACCOUNT SUPERVISOR Temperature - - Respiratory Rate - - Oxygen Saturation - - Inhaled Oxygen Concentration - - Weight 106.4 kg (234 lb 9.6 oz) 022 11:26 AM ACCOUNT SUPERVISOR Height 160 cm (5' 3) 08/07/2022 11:26 AM ACCOUNT SUPERVISOR Body Mass Index 41.56 08/07/2022 11:26 AM ACCOUNT SUPERVISOR Plan of Treatment Health Maintenance Due Date [...] VACCINE ( - 2023-2 5 season) 2024 DEPRESSION SCREENING 09/23/2024 INFLUENZA VACCINE (#1) 2025 HEPATITIS B VACCINE Aged Out No longe [...] to complete this topic Insurance MEDICARE AETNA AETNA MEDICARE MEDICARE Care Teams Product Support Engineer Relationship Specialty Start Date End Date Rinku Beasley MD [address] [place] [address] PCP - General 04/19/22
--- OUTSIDE RECORDS SUMMARY | 2025-05-06 10:39 | XMS_ITS | Continuity of Care Document ---
Author Organization [facility] Address [address] [place] [address] Phone Care Team Providers Care Educational Coordinator Name Role Phone Philip, Edward Unavailable Unavailable Advance Directives Directive Yes / No Effective Date File Name No Information Encounters Encounter Description Practice Location Reason(s) For Visit Diagnoses Date Provider Providers Copied on Encounter [facility], [address], [place], [place], [id number], [place] tel:[phone] [facility] No Information Sep-1 0-200 3 Doisy Edward. [address] , [address], [place], [address], [place]. tel:[phone] Family History Family Member Type Diagnosis Age At Onset No Information Payers Payer name Insurance type Covered libertarian ID Authoriza tion(s) [employer] SOI CI [id number] Social History Type Description Quantity Date Captured [...]
--- OUTSIDE RECORDS SUMMARY | 2025-05-06 10:39 | XMS_ITS | Clinical Summary ---
Author Organization [facility] Address [address] [place] [address] Phone Care Team Providers Care Template Reproduction Technician Name Role Phone Rinku Beasley MD Primary Care Provider [phone] Laurie Wilkins APRN, PEOPLESOFT HRMS DEVELOPER Unavailable Allergies Active Allergy Reactions Criticality Noted [...] Take 1,000 mg by mouth daily. Active [place]-3 Fatty Acids (FISH OIL PO) Take 1 [...] Comments Blood Pressure 158/82 11/26/2019 10:00 AM CUSTOMER SERVICE REP Pulse 74 11/26/2019 10:00 AM CUSTOMER SERVICE REP Temperature 36.7 C (98 F) 11/26/2019 10:00 AM CUSTOMER SERVICE REP Respiratory Rate 20 11/26/2019 10:0 0 AM CUSTOMER SERVICE REP Oxygen Saturation 100% 11/26/2019 10: 00 AM CUSTOMER SERVICE REP Inhaled Oxygen Concentration - - Weight 98.3 kg (216 lb 12.8 oz) 020 10:00 AM CUSTOMER SERVICE REP Height 161.3 cm (5' 3.5) 11/26/2019 10 :00 AM CUSTOMER SERVICE REP Body Mass Index 37.8 11/26/2019 10:00 AM CUSTOMER SERVICE REP Plan of Treatment Health Maintenance Due Date Last Done Comments Hepatitis C Virus (HCV) Screening 1950 Cologuard 1997 Immunochemical Fecal Occult Blood 1997 Zoster Immunization (2 of 3) 03/31/2014 02/03/2014 SARS-COV-2 Immunization ( season) 2024 Colonoscopy 08/17/2024 08/17/2019, 07/27/2015 Colorectal Cancer Screening 08/17/2024 Influenza Immunization (#1) 05/24/202506/24, 05/23/2016 Respiratory Syncytial Virus (RSV) Immunization (Adult) (1 - 1-dose 75+ series) 2027 DTaP/Tdap/Td Immunization Discontinued 2015, 03/17/2009 TdaP Immunization Completed 05/23/2016, 03/17/2009 Pneumococcal Immunization (5 0+ years) Completed 01/03/2018, 07/05/2017, 12/07/2014 Pneumococcal Immunization Combined Discontinued 01/03/2018, 07/05/2017, 12/07/2014 Hepatitis B Immunization Aged Out No longer eligible based on patient's age to complete this topic Human Papillomavirus (HPV) Immunization Aged Out No longer eligible based [...] Maintenance Insurance MEDICARE [employer] Care Teams Template Reproduction Technician Relationship Specialty Start Date End Date Rinku Beasley MD [address] [place] [address] PCP - General Internal Medicine 05/21/19 Laurie Wilkins APRN, PEOPLESOFT HRMS DEVELOPER [address] [place], [place] [id number] Nurse Practitioner Advanced Practice Nurse 12/01/19
--- OUTSIDE RECORDS SUMMARY | 2025-05-06 10:39 | XMS_ITS | Encounter Summary ---
Author Organization [facility] Address [address] [place] [address] Phone Care Team Providers Care Lead Data Architect Name Role Phone Rinku Beasley MD Primary Care Provider [phone] Encounter Details Date Type Department Care Team [...] on file Legal Sex Female 12:33 AM PILOT SUPERVISOR Gender Identity Not on file Sexual [...] on filedocumented in this encounter Care Teams Lead Data Architect Relationship Specialty Start Date End Date Rinku Beasley MD [address] [id number] PCP - General 09/08/19 documented as of this encounter
--- OUTSIDE RECORDS SUMMARY | 2025-05-06 10:39 | XMS_ITS | Clinical Summary ---
Author Organization [facility] Address [address] [place] [address] Care Team Providers Care Petrophysical Engineer Name Role Phone Unavailable Primary Care [...] 1 - Tdap) 1971 Mammogram Screening 1992 Pneumococcal Vaccine: 50+ Ye ars (1 of 1 - PCV) 2002 Zoster Vaccines (1 of 2) 2002 Annual Medicare Wellness Visit 2017 Dexa Scan (General) 2017 COVID-19 Vaccine (2023-2 5 season) 2024 RSV Immunization or 60+ Years (1 [...]
--- OUTSIDE RECORDS SUMMARY | 2025-05-06 10:39 | XMS_ITS | Clinical Summary ---
Author Organization [facility] Address [address] [place] [address] Care Team Providers Care Grades 1 Through 5 Teacher Name Role Phone Rinku Beasley MD [...] capsule Take 25 mg by mouth. Active ywdyxly-marz-yx bgr-mfqh-fdvuob 100 mg-150 mg- 50 mg-150 mg Capsule Take by mouth. Activ e Cranberry 500 mg Capsule Take by mouth. Acti ve dofetilide (TIKOSYN) 125 mcg capsule Take 125 mcg by mouth 2 times daily. 4 Active fluticasone propionate (FLONASE) 50 mcg/spray [place], Suspension nasal inhaler Administer 2 Sprays in each nostril daily. Active azelastine (ASTELIN) 137 mcg/actuation nasal spray Administer 1 [place] in each nostril daily. Active Active Problems No known active problems Encounters Date Type Department Care Team Description 04/07/2025 External Device Data STL ABSTRACTION Provider, Abstract 04/06/2025 External Device Data STL ABSTRACTION Provider, Abstract 03/16/2025 External Device Data STL ABSTRACTION Provider, Abstract 03/09/2025 External Device Data STL ABSTRACTION Provider, Abstract 02/16/2025 External Device Data STL ABSTRACTION Provider, Abstract 02/11/2025 External Device Data STL ABSTRACTION Provider, Abstract 02/10/2025 External Device Data STL ABSTRACTION Provider, Abstract 02/10/2025 External Device Data STL ABSTRACTION Provider, Abstract 02/09/2025 External Device Data STL ABSTRACTION Provider, Abstract [...] Comments Blood Pressure 132/76 11/09/2024 1:05 PM CLINICAL APPEALS AUDITOR Pulse 61 11/09/2024 1:05 PM CLINICAL APPEALS AUDITOR Temperature 36.2 C (97.1 F) 11/09/2024 1:05 PM CLINICAL APPEALS AUDITOR Respiratory Rate 15 11/09/2024 1:05 PM CLINICAL APPEALS AUDITOR Oxygen Saturation 90% 11/09/2024 1:05 PM CLINICAL APPEALS AUDITOR Inhaled Oxygen Concentration - - Weight 99.3 kg (219 lb) 11/09/2024 1:05 PM CLINICAL APPEALS AUDITOR Height 160 cm (5' 3) 08/12/2023 9:42 AM CLINICAL APPEALS AUDITOR Body Mass Index 38.79 08/12/2023 9:42 AM CLINICAL APPEALS AUDITOR Plan of Treatment Upcoming Encounters Date Type Department Care Team (Late st Contact Info) Description 05/10/2025 11:30 AM CDT Office Visit [facility] Oncology and Hematology - [address] [facility] [address] [place] [address] Jacinto Arzate MD [address] [place] [address] Health Maintenance Due Date Last Done Comments DTAP/TDAP/TD VACCINES (1 - Tdap) 1971 Traditional Medicare (ACO) A nnual Wellness Visit 1971 FIT-DNA Q 3 years 1997 FIT/FOBT Q 1 year 1997 Flex Sig/CT Colonography Q 5 years 1997 PNEUMOCOCCAL VACCINE 50+ YEA RS (1 of 1 - PCV) 2002 ZOSTER VACCINE (1 of 2) 2002 INFLUENZA VACCINE (#1) 2025 BREAST CANCER SCREENING 12/07/2025 12/08/19, 12/07/2024, 11/29/2022, Additional history exists RSV VACCINE (60+ or ) (1 - 1-dose 75+ series) 2027 OSTEOPOROSIS SCREENING 12/01/2029 , 11/29/2022, 10/25/2020 COLORECTAL SCREENING 07/24/2033 07/24/2023, 08/17/2019, 08/17/2019, Additional history exists Colorectal Cancer Screening 07/24/2033 Insurance MEDICARE PART A AND B [employer] MEDICARE SUPP AESSI Care Teams Grades 1 Through 5 Teacher Relationship Specialty Start Date End Date Rinku Beasley MD [address] [place] [id number] PCP - General Internal Medicine 05/22/23
[2025-05-06 10:45] LABS: Hematocrit 37.6 % (37.0-47.0); Hemoglobin 12.3 g/dL (12.0-15.0); Immature Granulocyte Percent A 0.3 % (0-0.5); Lymphocytes Absolute Auto 1.86 K/mm3 (0.9-3.2); Mean Corpuscular HGB Conc 32.7 g/dl (32-36); Mean Corpuscular Hemoglobin 29.5 pg (26-34); Mean Corpuscular Volume 90.2 fl (80-100); Nucleated Red Blood Cells Absolute Auto 0.000 K/mm3 (0.0-0.012); Nucleated Red Blood Cells Perc 0.0 % (0.0-0.2); Platelet Count Result 349 k/mm3 (150-375); Red Blood Count 4.17 M/mm3 (4.2-5.4); White Blood Count 6.6 K/mm3 (4.5-10.0)
[2025-05-06 13:22] LABS: Anion Gap 10 mmol/L (4-12); Blood Urea Nitrogen 14 mg/dL (7-17); Calcium 9.9 mg/dL (8.4-10.2); Carbon Dioxide 27 mmol/L (22-30); Chloride 102 mmol/L (98-107); Estimated Glomerular Filt Rate 57; Glucose 93 mg/dL (65-110); Potassium 4.9 mmol/L (3.4-5.0); Sodium 139 mmol/L (137-145)
[2025-05-06 13:26] LABS: Iron 88 ug/dL (37-170)
[2025-05-06 14:16] LABS: Percent Iron Saturation 27 % (20-50)
[2025-05-06 14:24] LABS: Ferritin 66.30 ng/mL (11.1-264)
[2025-05-06 14:37] LABS: Vitamin B12 704.0 pg/mL (239-931)
== END 2025-05-06 10:25 | disposition home or self-care (01) ==
PROVIDERS: PCP Internal Medicine; Visit Provider Internal Medicine Hematology & Oncology
DX: D64.9 Anemia, unspecified (principal)
CPT/HCPCS: 36415; 80048; 82607; 82728; 82746; 83540; 83550; 85025

== ENCOUNTER 2025-05-26 09:39 | Outpatient (CLI) | payer MEDICARE, SELFPAY ==
--- OUTSIDE RECORDS SUMMARY | 2003-06-02 10:45 | XMS_ITS | Continuity of Care Document ---
Author Organization [facility] Address [address] [place] [address] Phone Care Team Providers Care Mill Roll Rewinder Name Role Phone Philip, Edward Unavailable Unavailable Advance Directives Directive Yes / No Effective Date File Name No Information Encounters Encounter Description Practice Location Reason(s) For Visit Diagnoses Date Provider Providers Copied on Encounter formerly [facility], [address], [place], [place], [id number], [place] tel:[phone] [facility] No Information Sep-1 0-200 3 Doisy Edward. [address] , [address], [place], [address], [place]. tel:[phone] Family History Family Member Type Diagnosis Age At Onset No Information Payers Payer name Insurance type Covered green party ID Authoriza tion(s) [employer] SOI CI [id number] Social History Type Description Quantity Date Captured Comments Sex Female Smoking Status No Information Chief Complaint And Reason For Visit No Information Reason For Referral Reason For Referral No Information History Of Present Illness Encounter Date Complaint History Of Prese nt Illness No Information Functional Status Date Functional Assessmen t No Information Instructions Date Instruction Additional Infor mation No Information Assessments Type Assessment Date No Information Patient Care Teams Name Effective Dates (start - stop) Status Members No Information
[2025-05-26 09:52] LABS: Hematocrit 35.7 % (35.0-42.0); Hemoglobin 11.4 g/dL (11.7-13.8); Mean Corpuscular HGB Conc 31.9 g/dL (32-36); Mean Corpuscular Hemoglobin 29.1 pg (27.0-31.0); Mean Corpuscular Volume 91.1 fL (78.0-102.0); Platelet Count Result 330 K/mm3 (150-420); Red Blood Count 3.92 M/mm3 (4.20-5.40); White Blood Count 7.8 K/mm3 (4.8-10.8)
[2025-05-26 10:05] LABS: Add Urine Microscopic? YES; Appearance Urine Clear (Clear); Glucose Urine UA Negative (Negative); Leukocyte Esterase Ur Trace (Negative); Nitrate Urine Negative (Negative); Specific Grav Ur 1.010 (1.010-1.020)
[2025-05-26 10:24] LABS: Alanine Aminotransferase 12 U/L (6-35); Albumin Level 4.2 g/dL (3.5-5.1); Alkaline Phosphatase 57 U/L (38-126); Anion Gap 9 mmol/L (4-12); Aspartate Amino Transferase 21 U/L (14-36); Bilirubin,Total 0.4 mg/dL (0.2-1.3); Blood Urea Nitrogen 13 mg/dL (7-17); Calcium 9.8 mg/dL (8.4-10.2); Carbon Dioxide 28 mmol/L (22-30); Chloride 106 mmol/L (98-107); Cholesterol 230 mg/dL (0-200); Creatine Kinase 53 U/L (30-135); Estimated Glomerular Filt Rate > 60; Glucose 98 mg/dL (65-110); HDL Direct 56 mg/dL; Iron 78 ug/dL (37-170); Osmolality Calculated 296 mOsm/kg (285-295); Potassium 4.6 mmol/L (3.4-5.0); Sodium 143 mmol/L (137-145); Total Protein 7.1 g/dL (6.3-8.2); Triglycerides 150 mg/dL (<150); Uric Acid 5.1 mg/dL (2.5-7.5)
[2025-05-26 10:29] LABS: Hemoglobin A1C 5.8 % (<5.7)
--- OUTSIDE RECORDS SUMMARY | 2025-05-26 10:29 | XMS_ITS | Encounter Summary ---
Author Organization [facility] Address [address] [place] [address] Phone Care Team Providers Care Ob/Gyn Name Role Phone Rinku Beasley MD Primary Care Provider [phone] Encounter Details Date Type Department Care Team [...] on file Legal Sex Female 12:33 AM PERSONAL INVESTMENT ADVISER Gender Identity Not on file Sexual Orientation [...] on filedocumented in this encounter Care Teams Ob/Gyn Relationship Specialty Start Date End Date Rinku Beasley MD [address] [place], [place] [phone] PCP - General 09/08/19 documented as of this encounter
--- OUTSIDE RECORDS SUMMARY | 2025-05-26 10:30 | XMS_ITS | Clinical Summary ---
Author Organization [facility] Address [address] [place] [address] Phone Care Team Providers Care Biological Photographer Name Role Phone Rinku Beasley MD Primary Care Provider [phone] Laurie Wilkins APRN, PROFESSOR OF VISUAL ARTS Unavailable Allergies Active Allergy Reactions Criticality Noted [...] Take 1,000 mg by mouth daily. Active [place]-3 Fatty Acids (FISH OIL PO) Take 1 [...] Comments Blood Pressure 158/82 11/26/2019 10:00 AM CROTCH BREAKER Pulse 74 11/26/2019 10:00 AM CROTCH BREAKER Temperature 36.7 C (98 F) 11/26/2019 10:00 AM CROTCH BREAKER Respiratory Rate 20 11/26/2019 10:0 0 AM CROTCH BREAKER Oxygen Saturation 100% 11/26/2019 10: 00 AM CROTCH BREAKER Inhaled Oxygen Concentration - - Weight 98.3 kg (216 lb 12.8 oz) 020 10:00 AM CROTCH BREAKER Height 161.3 cm (5' 3.5) 11/26/2019 10 :00 AM CROTCH BREAKER Body Mass Index 37.8 11/26/2019 10:00 AM CROTCH BREAKER Plan of Treatment Health Maintenance Due Date Last Done Comments Hepatitis C Virus (HCV) Screening 1952 Cologuard 1997 Immunochemical Fecal Occult Blood 1997 Zoster Immunization (2 of 3) 03/31/2014 02/03/2014 Colonoscopy 08/17/2024 08/17/2019, 07/27/2015 Colorectal Cancer Screening 08/17/2024 Influenza Immunization (#1) 05/24/202506/24, 05/23/2016 SARS-COV-2 Immunization ( - 2023- season) 2025 Respiratory Syncytial Virus (RSV) Immunization (Adult) (1 [...] to Health Maintenance Insurance MEDICARE [employer] [place] [id number] Care Teams Biological Photographer Relationship Specialty Start Date End Date Rinku Beasley MD [address] [place] [address] PCP - General Internal Medicine 05/21/19 Laurie Wilkins, VIOLETA, PROFESSOR OF VISUAL ARTS [address] [place] [address] Nurse Practitioner Advanced Practice Nurse 12/01/19
--- OUTSIDE RECORDS SUMMARY | 2025-05-26 10:30 | XMS_ITS | Clinical Summary ---
Author Organization [facility] Address [address] [place] [address] Care Team Providers Care Unit Coordinator Name Role Phone Rinku Beasley MD Primary Care Provider [phone] Allergies Active Allergy Reactions Criticality Noted Date [...] 11/19/2023 Assessment & Plan (11/21/2023 10:19 AM FOOD CHECKERS AND CASHIERS SUPERVISOR): History of symptomatic atrial fibrillation and [...] -telemetry Assessment & Plan (11/20/2023 3:13 PM FOOD CHECKERS AND CASHIERS SUPERVISOR): History of symptomatic atrial fibrillation and [...] 11/19/2023 Assessment & Plan (11/21/2023 10:19 AM FOOD CHECKERS AND CASHIERS SUPERVISOR): Normotensive on admission -continue home spironolactone 50 mg daily Assessment & Plan (11/20/2023 3:11 PM FOOD CHECKERS AND CASHIERS SUPERVISOR): Normotensive on admission -continue home spironolactone 50 mg daily Morbid obesity with BMI of 40.0-44.9, adult 10/25 TAZ on CPAP 07/18/2023 Assessment & Plan (11/21/2023 10:19 AM FOOD CHECKERS AND CASHIERS SUPERVISOR): -continue evening CPAP Assessment & Plan (11/19/2023 9:10 PM FOOD CHECKERS AND CASHIERS SUPERVISOR): -continue evening CPAP Nonrheumatic mitral valve regurgitation 07/18/20 23 Paroxysmal atrial fibrillation 07/11/2021 Class 2 obesity with body ma ss index (BMI) of 38.0 to 38.9 in adult 05/25/2021 Assessment & Plan (11/21/2023 10:19 AM FOOD CHECKERS AND CASHIERS SUPERVISOR): Contributing towards TAZ and AF -encouraged weight loss and caloric restriction Assessment & Plan (11/19/2023 9:11 PM FOOD CHECKERS AND CASHIERS SUPERVISOR): Contributing towards TAZ and AF -encouraged [...] file Legal Sex Female 12:33 AM FOOD CHECKERS AND CASHIERS SUPERVISOR Gender Identity Not on file Sexual Orientation Not on file Obstetrics History Last Filed Vital Signs Vital Sign Reading Time Taken Comments Blood Pressure 132/84 01/25/2025 10:39 AM CDT Pulse 59 01/25/2025 10:39 AM CDT Temperature 36.3 C (97.3 F) 11/22/2023 6:52 AM FOOD CHECKERS AND CASHIERS SUPERVISOR Respiratory Rate 16 11/22/2023 8:50 AM FOOD CHECKERS AND CASHIERS SUPERVISOR Oxygen Saturation 92% 01/25/2025 10:39 AM CDT [...] history exists Medical Devices Implanted Type Area Nuclear Chemistry Technician Device Identifier Shelf Expiration Date Model / Serial / Lot Nail Nail N/A: Back Description:[id number] [facility] MEDICARE AETNA SENIOR SUPPLEMENT Advance Directives For more information, please contact: [phone] * Full Code (Latest Code Status on File) Date Activated Date Inactivated Comments 11/19/2023 9:00 PM 11/22/2023 6:04 PM Care Teams Unit Coordinator Relationship Specialty Start Date End Date Rinku Beasley MD [address] [place], [place] [phone] PCP - General 09/08/19
--- OUTSIDE RECORDS SUMMARY | 2025-05-26 10:30 | XMS_ITS | Clinical Summary ---
Author Organization [facility] Address [address] [place] [address] Care Team Providers Care Drying Oven Tender Name Role Phone Rinku Beasley MD Primary [...] capsule Take 25 mg by mouth. Active lxdbikn-gmmz-lq gqx-mhql-lzxfki 100 mg-150 mg- 50 mg-150 mg Capsule Take by mouth. Activ e Cranberry 500 mg Capsule Take by mouth. Acti ve dofetilide (TIKOSYN) 125 mcg capsule Take 125 mcg by mouth 2 times daily. 4 Active fluticasone propionate (FLONASE) 50 mcg/spray [place], Suspension nasal inhaler Administer 2 Sprays in each nostril daily. Active azelastine (ASTELIN) 137 mcg/actuation nasal spray Administer 1 [place] in each nostril daily. 2 Active Active Problems No known active problems Encounters Date Type Department Care Team Description 05/10/2025 11:30 AM CDT Office Visit [facility] Oncology and Hematology [facility] [address] [place] [address] Jacinto Arzate MD Chronic anemia (Primary Dx) 05/10/2025 Orders Only [facility] Oncology and Hematology [facility] [address] [place] [address] Jacinto Arzate MD 05/06/2025 Orders Only [facility] Oncology and Hematology [address] [place] [address] Jacinto Arzate MD 04/07/2025 External Device Data STL ABSTRACTION Provider, [...] Sign Reading Time Taken Comments Blood Pressure 127/77 05/10/2025 11:05 AM CDT Pulse 67 05/10/2025 11:05 AM CDT Temperature 36.6 C (97.9 F) 05/10/2025 11:05 AM CDT Respiratory Rate 15 05/10/2025 11:05 AM CDT Oxygen Saturation 98% 05/10/2025 11:05 AM CDT Inhaled Oxygen Concentration - - Weight 100 kg (220 lb 6.4 oz) 05/10/2025 11:05 A M CDT Height 160 cm (5' 3) 08/12/2023 9:42 AM EDGE BANDING MACHINE OFFBEARER Body Mass Index 39.04 08/12/2023 9:42 AM EDGE BANDING MACHINE OFFBEARER Plan of Treatment Upcoming Encounters Date Type Department Care Team (Late st Contact Info) Description 02/07/2026 11:00 AM CDT Office Visit [facility] Oncology and Hematology - [address] [facility] [address] [place] [address] Jacinto Arzate MD [address] [facility] [address] [place] [address] Health Maintenance Due Date Last Done Comments DTAP/TDAP/TD VACCINES (1 - Tdap) 1971 FIT-DNA Q 3 years 1997 FIT/FOBT Q 1 year 1997 Flex Sig/CT Colonography Q 5 years 1997 PNEUMOCOCCAL VACCINE 50+ YEA RS (1 of 1 - PCV) 2002 ZOSTER VACCINE (1 of 2) 2002 INFLUENZA VACCINE (#1) 2025 BREAST CANCER SCREENING 12/07/2025 12/08/19 25, 12/07/2024, 11/29/2022, Additional history exists RSV VACCINE (60+ or ) (1 - 1-dose 75+ series) 2027 OSTEOPOROSIS SCREENING 12/01/2029 5, 11/29/2022, 10/25/2020 COLORECTAL SCREENING 07/24/2033 07/24/2023, 08/17/2019, 08/17/2019, Additional history exists Colorectal Cancer Screening 07/24/2033 Procedures Procedure Name Priority Date/Time Associated Diagnosis Comments CBC WITH AUTODIFFERENTIAL Routine 2024 1:12 PM CDT BASIC METABOLIC PANEL Routine 05/06/2025 12:25 PM CDT from Last 3 Months Results * CBC WITH AUTODIFFERENTIAL (05/06/2025 1:12 PM CDT) Blood Jacinto Arzate MD HEMATOLOGY ORDERABLES Final Res ult * BASIC METABOLIC PANEL (05/06/2025 12:25 PM CDT) Blood Jacinto Arzate MD CHEMISTRY ORDERABLES Final Resu lt from Last 3 Months Insurance MEDICARE PART A AND B AET MEDICARE SUPP AESSI Care Teams Drying Oven Tender Relationship Specialty Start Date End Date Rinku Beasley MD [address] [place] [address] PCP - General Internal Medicine 05/22/23
[2025-05-26 10:40] LABS: Free T4 Free Thyroxine 1.04 ng/dL (0.78-2.19)
[2025-05-26 10:41] LABS: Free T3 3.52 pg/mL (2.18-3.98)
[2025-05-26 10:53] LABS: Thyroid Stimulating Hormone 0.892 uIU/mL (0.465-4.680)
[2025-05-26 10:57] LABS: Ferritin 67.70 ng/mL (11.1-264)
[2025-05-26 11:13] LABS: Vitamin B12 805.0 pg/mL (239-931)
== END 2025-05-26 09:40 | disposition home or self-care (01) ==
LOC: CHSLAB 09:41
PROVIDERS: PCP Internal Medicine; Visit Provider Internal Medicine
DX: I10 Essential (primary) hypertension (principal); E78.2 Mixed hyperlipidemia; R94.6 Abnormal results of thyroid function studies; I48.19 Other persistent atrial fibrillation; D64.9 Anemia, unspecified; M81.0 Age-related osteoporosis without current pathological fracture; Z13.1 Encounter for screening for diabetes mellitus
CPT/HCPCS: 36415; 80053; 80061; 81001; 82306; 82550; 82607; 82728; 83036; 83540; 84439; 84443; 84481; 84550; 85027